=== PATIENT | male | born 1970 | race Caucasian/White ===

== ENCOUNTER → 2020-01-06 13:15 | Outpatient (BNVA) | payer SELFPAY | PROVIDERS: Visit Provider Physician Assistant ==

== ENCOUNTER → 2021-12-28 13:00 | Outpatient (BNVA) | payer SELFPAY | PROVIDERS: Visit Provider Internal Medicine | DX: Z02.79 Encounter for issue of other medical certificate (principal) ==

== ENCOUNTER 2023-04-26 10:03 | Emergency (ER) | payer MEDICAID, SELFPAY ==
--- NOTE | ~2023-04-26 | US_ITS ---
EXAMINATION: US VENOUS ULTRASOUND WITH DOPPLER LOWER EXTREMITY, BILATERAL CLINICAL INFORMATION: pain COMPARISON: None available. TECHNIQUE: Ultrasound of the deep veins is performed from the hip to the calf with compression sonography and color and pulse Doppler assessment. Spectral analysis with color-flow imaging is performed. FINDINGS: RIGHT: There is normal venous compression and respiratory variation and augmented flow. The visualized common femoral vein, superficial femoral vein, profunda femoral vein, popliteal vein, and the trifurcation region shows no evidence of deep venous thrombosis. There is no significant popliteal fossa cyst. LEFT: There is normal venous compression and respiratory variation and augmented flow. The visualized common femoral vein, superficial femoral vein, profunda femoral vein, popliteal vein, and the trifurcation region shows no evidence of deep venous thrombosis. There is no significant popliteal fossa cyst. US/US venous duplex LE BI IMPRESSION: No DVT demonstrated in the bilateral lower extremity.
--- NOTE | ~2023-04-26 | XR_ITS ---
EXAMINATION: XR CHEST CLINICAL INFORMATION: 52-year-old male with palpitations COMPARISON: None available. TECHNIQUE: 2 views of the chest were obtained. FINDINGS: No significant abnormality is noted involving the heart, lungs, mediastinum, bony thorax or soft tissues. XR/XR chest 2V IMPRESSION: Unremarkable examination.
[2023-04-26 10:08] VITALS: BP 134/94; PULSE 100; RESP 19; TEMP 36.6; O2SAT 99; BMI 27.9
--- NOTE | 2023-04-26 10:11 | ECG_ITS ---
Test Reason : palpitations Blood Pressure : / mmHG Vent. Rate : 087 BPM Atrial Rate : 087 BPM P-R Int : 148 ms QRS Dur : 094 ms QT Int : 384 ms P-R-T Axes : 060 028 058 degrees QTc Int : 462 ms Normal sinus rhythm Normal ECG No previous ECGs available Referred By: Generic ED Physician Electronically Signed By:Jonel Maxwell
[2023-04-26 10:41] LABS: MANUAL DIFF FLAG NO
[2023-04-26 10:43] LABS: Basophils Percent Auto 0.4 % (0-2); Eosinophils Percent Auto 0.2 % (0-4); Hematocrit 42.8 % (42.0-52.0); Hemoglobin 14.7 g/dl (14.0-18.0); Imm Gran Abs Auto 0.01 X10*3/uL (0.00-0.03); Imm Gran Pct Auto 0.2 % (0.0-0.4); Lymphocytes Absolute Auto 0.9 X10*3/uL (1.2-4.9); Lymphocytes Percent Auto 16.8 % (20-40); Mean Corpuscular HGB Conc 34.3 g/dl (31.0-36.0); Mean Corpuscular Hemoglobin 31.5 pg (27.0-33.0); Mean Corpuscular Volume 91.8 fL (80.0-98.0); Monocytes Absolute Auto 0.4 X10*3/uL (0.1-1.2); Monocytes Percent Auto 7.9 % (2-11); Neutrophils Absolute Auto 4.1 x10*3/uL (2.0-8.3); Neutrophils Percent Auto 74.5 % (45-73); Platelet Count 318 X10*3/uL (160-400); Red Blood Count 4.66 X10*6/uL (4.60-5.80); Red Cell Distribution Width 12.8 % (11.0-16.0); White Blood Count 5.4 X10*3/uL (4.8-10.8)
[2023-04-26 10:56] LABS: Prothrombin Time 11.7 SEC (11.1-13.3)
[2023-04-26 10:57] LABS: Alanine Aminotransferase 34 U/L (0-40); Albumin Level 4.3 g/dL (3.5-5.0); Alkaline Phosphatase 74 U/L (39-117); Anion Gap 12 (12-20); Aspartate Amino Transferase 28 U/L (5-37); Bilirubin Direct 0.2 mg/dL (0.0-0.5); Bilirubin Total 0.4 mg/dL (0.0-1.0); Blood Urea Nitrogen 13 mg/dL (9-16); COVID-19 Test Negative (Negative); Calcium 9.4 mg/dL (8.4-10.2); Carbon Dioxide 23 mmol/L (22-29); Chloride 109 mmol/L (96-108); Estimated Glomerular Filt Rate > 60; Glucose Random 113 mg/dL (60-115); IDNOW Serial# 152EDE1D; Lipase 11 U/L (8-78); Potassium 4.1 mmol/L (3.3-5.1); Sodium 140 mmol/L (135-145); Total Protein 7.3 g/dL (6.5-8.0)
[2023-04-26 11:03] LABS: B Type Natriuretic Peptide 12 pg/mL (<100)
[2023-04-26 11:04] LABS: Troponin-I High Sensitivity < 2.7 ng/L (<3.5-35.0)
--- NOTE | 2023-04-26 13:30 | ED_ITS ---
HPI - General Adult General Chief complaint: General Medical Stated complaint: Irregular Heartbeat Pain X 1 Wk Time Seen by Provider: 04/26/23 13:29 Source: patient Mode of arrival: ambulatory Limitations: no limitations History of Present Illness HPI narrative: 52-year-old male with a history of atrial fibrillation who presents emergency department for evaluation of left-sided chest pain, palpitations which he describes as skipped beats and lower extremity swelling. States he has been having these sensations for a long period of diagnosed with atrial fibrillation in 2021. He states that over the last several days he has had frequent skipped beats and he feels like he has having a thumping sensation in his chest when he skips a beat. He also is complaining of swelling of his lower extremities with pain in his left groin area. He states that he has been diagnosed with atrial fibrillation twice and was cardioverted once in the past. He states he does have an appointment with his three knife trimmer in the next 1-2 weeks. He denied Fever, chills, cough, nausea, vomiting or diarrhea. Related Data Allergies Allergy/AdvReac Type Severity Reaction Status Date / Time No Known Allergies Allergy Verified 04/26/23 10:07 Review of Systems 2 Review of Systems: Yes all other systems are reviewed and are negative [facility] Past Medical History [facility] Narrative: Social history: Denies tobacco, alcohol and drug use. Social History Social History Smoked in Last 30 Days: No Use of substances other than those prescribed or required for medical reasons: No Advance Directives: No Advance Directives Information Provided: No Physical Exam ED Vital Signs: Vital Signs - 24 hr 04/26/23 10:08 04/26/23 14:56 04/26/23 18:08 Temperature 98 F 98.1 F Pulse Rate 100 75 65 Respiratory Rate 19 16 14 Blood Pressure 134/94 H 122/87 117/80 Pulse Oximetry 99 98 99 Oxygen Delivery Method Room Air Room Air BMI result Body Mass Index 27.9 Vital signs were normal Exam General: Awake, alert in no distress Head: Normocephalic, atraumatic EENT: PERRL, Lids normal, sclera normal, conjunctiva normal, nose normal , ears normal, throat without erythema or exudates Neck: Supple, no adenopathy Lung: breath sounds symmetric, no wheezing, rales or rhonchi Chest: symmetric movement, nontender Heart: regular rate and rhythm, normal S1, S2 no murmurs or rubs Abdomen: soft, non-tender, nondistended, normal bowel sounds Back: no vertebral tenderness, no CVAT Extremities: no deformities, moves all extremities symmetrically, trace to 1 bilaterally symmetric Skin: no rashes, no lesion, normal color and warmth Neuro: Awake, alert, oriented, normal speech, cranial nerves intact, moves all extremities symmetrically Psych: Pleasant, cooperative Medications Administered Discontinued Medications Generic Name Dose Route Start Last Admin Trade Name Freq PRN Reason Stop Dose Admin Lorazepam 2 mg 04/26/23 17:10 04/26/23 18:07 Lorazepam 1 Mg Tablet PO 04/26/23 17:11 2 mg ONCE STA Administration Medical Decision Making Medical Decision Making [facility] Narrative: 52-year-old male with a history of atrial fibrillation who presents emergency department for evaluation of left-sided chest pain, palpitations which he describes as skipped beats and lower extremity swelling times years with symptoms worse over the past week. Vital signs were normal. Physical exam did reveal bilateral lower extremity pitting edema, otherwise was unremarkable. Differential diagnosis: Includes was not limited to palpitations, anxiety, atrial fibrillation, arrhythmias, DVT 19:00 My interpretation patient's laboratory evaluation is as follows: CBC was normal. CMP was normal. COVID-19 was negative. Troponin was below detectable limits. INR was normal Twelve EKG revealed no significant abnormalities Chest x-ray was normal. Duplex ultrasound of lower extremities revealed no DVT awake overnight monitor did not reveal any arrhythmias despite the patient complaining of palpitations I did discuss these findings with the patient, he was advised to follow-up with his three knife trimmer for further evaluation of his palpitations and to rule out the possibility of paroxysmal atrial fibrillation. Admission/Observation Consideration of admission/observation: Escalation of care including admission/observation considered Lab Data [facility] Lab Attestation statement: I reviewed the patient's lab results. 04/26/23 10:36 04/26/23 10:36 Labs: Lab Results 04/26/23 Range/Units 10:36 WBC 5.4 (4.8-10.8) X10*3/uL RBC 4.66 (4.60-5.80) X10*6/uL Hgb 14.7 (14.0-18.0) g/dl Hct 42.8 (42.0-52.0) % MCV 91.8 (80.0-98.0) fL MCH 31.5 (27.0-33.0) pg MCHC 34.3 (31.0-36.0) g/dl RDW 12.8 (11.0-16.0) % Plt Count 318 (160-400) X10*3/uL MPV 9.0 L (9.4-12.4) fL Immature Gran % (Auto) 0.2 (0.0-0.4) % Neut % (Auto) 74.5 H (45-73) % Lymph % (Auto) 16.8 L (20-40) % [place] % (Auto) 7.9 (2-11) % Eos % (Auto) 0.2 (0-4) % Baso % (Auto) 0.4 (0-2) % Lymph # (Auto) 0.9 L (1.2-4.9) X10*3/uL [place] # (Auto) 0.4 (0.1-1.2) X10*3/uL Eos # (Auto) 0.0 (0.0-0.4) X10*3/uL Baso # (Auto) 0.0 (0.0-0.2) X10*3/uL Abs Immat Gran (auto) 0.01 (0.00-0.03) X10*3/uL Absolute Neuts (auto) 4.1 (2.0-8.3) x10*3/uL Absolute Nucleated RBC 0.000 (0.0-0.012) X10*3/uL Nucleated RBC % (auto) 0.0 (0.0-0.2) /100WBC PT 11.7 (11.1-13.3) SEC INR 1.0 (0.9-1.1) Sodium 140 (135-145) mmol/L Potassium 4.1 (3.3-5.1) mmol/L Chloride 109 H (96-108) mmol/L Carbon Dioxide 23 (22-29) mmol/L Anion Gap 12 (12-20) BUN 13 (9-16) mg/dL Creatinine 1.07 (0.5-1.4) mg/dL Estim Creat Clear Calc 93.0 Estimated GFR > 60 Random Glucose 113 (60-115) mg/dL Calcium 9.4 (8.4-10.2) mg/dL Total Bilirubin 0.4 (0.0-1.0) mg/dL Direct Bilirubin 0.2 (0.0-0.5) mg/dL AST 28 (5-37) U/L ALT 34 (0-40) U/L Alkaline Phosphatase 74 (39-117) U/L Troponin I High Sens < 2.7 (<3.5-35.0) ng/L B-Natriuretic Peptide 12 (<100) pg/mL Total Protein 7.3 (6.5-8.0) g/dL Albumin 4.3 (3.5-5.0) g/dL Lipase 11 (8-78) U/L COVID-19 ([facility]) Negative (Negative) COVID-19 Clin Com See Note Independent Interpretation I performed an independent interpretation of an: EKG and Plain X-Ray Interpretation: My independent interpretation patient's 12 EKG done at 10:28 hours is as follows: Normal sinus rhythm with a rate of 87, normal CO interval, QRS duration QTC interval, no T-wave abnormalities, no ST segment elevation, no ST segment depression, no PACs, no PVCs-this is a normal EKG Radiology Impression Discussion of test interpretation with radiology: I have reviewed the radiologist's reading. Radiologist Impression: XR chest 2V IMPRESSION: Unremarkable examination. Dictated By: Ha Osborn MD US venous duplex LE BI IMPRESSION: No DVT demonstrated in the bilateral lower extremity. Dictated By: Alysia Collins MD Discharge Plan Discharge Clinical Impression: Heart palpitations, Edema, peripheral Patient Disposition: Home, Self-Care Instructions: Heart Palpitations (ED) Additional Instructions: Your blood work was unremarkable Your EKG was normal Your chest x-ray was normal The ultrasound of your lower extremities revealed no blood clots which is reassuring Your symptoms palpitations most likely premature ventricular contractions (PVCs) or premature atrial contraction (PACs). Make sure you keep your follow-up appointment with your three knife trimmer to complete your cardiac workup and to be further evaluated for possible atrial fibrillation Follow-up with your doctor in 2 days. Please return to the emergency department if your symptoms get worse or if you develop any symptoms that are concerning to you.
[2023-04-26 14:56] VITALS: BP 122/87; PULSE 75; RESP 16; TEMP 36.7; O2SAT 98
--- NOTE | 2023-04-26 17:30 | PC.NURSE ---
Pt enters my care- pt is c/o stomach and his heart fluttering- EKG ve- sinus cas on the monitor- attempted to reassure patient ++anxious- pt medicated with ativan awaiting disposition
[2023-04-26] MEDS: LORazepam 1 MG TABLET 2 MG PO (18:07)
[2023-04-26 18:08] VITALS: BP 117/80; PULSE 65; RESP 14; O2SAT 99
[2023-04-26 20:05] VITALS: BP 120/69; PULSE 71; RESP 16; TEMP 36.8; O2SAT 99
== END 2023-04-26 20:07 | disposition home or self-care (01) ==
PROVIDERS: Emergency Provider Emergency Medicine Emergency Medical Services; PCP Nurse Practitioner
DX: R07.9 Chest pain, unspecified (principal); R00.2 Palpitations; R60.0 Localized edema; Z11.52 Encounter for screening for COVID-19
CPT/HCPCS: 71046; 80048; 80076; 83690; 83880; 84484; 85025; 85610; 87635; 93005; 93970; 99284

== ENCOUNTER → 2023-04-26 10:11 | Outpatient (BNV) | payer MEDICAID, SELFPAY | PROVIDERS: Emergency Provider Emergency Medicine Emergency Medical Services; PCP Nurse Practitioner; Visit Provider Internal Medicine Cardiovascular Disease | DX: R00.2 Palpitations (principal) | CPT/HCPCS: 93010 ==

== ENCOUNTER 2023-04-27 15:21 | Emergency (ER) | payer MEDICAID, SELFPAY ==
--- NOTE | ~2023-04-27 | CT_ITS ---
EXAMINATION: CT ABDOMEN AND PELVIS WITH CONTRAST CLINICAL INFORMATION: Left periumbilical pain. COMPARISON: None available. TECHNIQUE: Multidetector volumetric images were obtained from the superior aspect of the liver through the pubic symphysis following administration 85 mL of Omnipaque 350 intravenous contrast. Sagittal and coronal reformatted images were obtained on the technologist's workstation. Oral contrast: No This CT examination was performed using dose optimization techniques as appropriate, variously including the following: *Automated exposure control *Adjustment of mA and/or kV according to patient size (this includes techniques or standardized protocols for targeted exams where dose is matched to indication/reason for exam; i.e. extremities or head) *Use of iterative reconstruction technique DLP: 632 mGy-cm FINDINGS: LUNG BASES: There is platelike atelectasis right lung base. The heart size is normal. LIVER, GALLBLADDER, AND BILIARY TREE: The liver is normal in size, shape, and attenuation. No focal hepatic lesion or biliary ductal dilatation is present. The gallbladder is unremarkable with no evidence of radiopaque gallstones, gallbladder wall thickening, or obvious pericholecystic inflammatory changes. PANCREAS: The pancreatic head and proximal body of the pancreas hypodense. Rest of the pancreas is unremarkable. Peripancreatic fat borders maintained normal. No adjacent fluid seen. SPLEEN: The spleen is unremarkable and normal size. There is a 1.2 cm lesion underneath the left diaphragm anterior to the spleen question accessory splenule. ADRENAL GLANDS: Unremarkable. KIDNEYS AND URETERS: The left kidney is normal size, shape and position with normal cortical thickness. No radiopaque calculi are hydronephrosis seen. The right kidneys malrotated and inferiorly positioned with no radiopaque calculi or hydronephrosis. There is normal cortical thickness. No hydronephrosis seen. There is a likely duplex collecting system and ureters. BLADDER: Unremarkable. GASTROINTESTINAL TRACT: There is scattered stool and gas seen throughout the colon without significant distention. The small bowel loops are normal caliber. ABDOMINAL WALL: No significant hernia is appreciated. LYMPH NODES: Normal. VASCULAR: Unremarkable. PELVIC VISCERA: The prostate gland is mildly enlarged. OSSEOUS STRUCTURES: No aggressive lytic or sclerotic process seen. CT/CT abdomen pelvis w IV con IMPRESSION: 1. No acute intra-abdominal process seen. 2. Mild constipation. 3. 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 The left kidney is unremarkable. 4. Slightly hypodense appearing head of the pancreas without peripancreatic fluid collection or fat stranding. Correlate with serum lipase and amylase. Fleischner guidelines were followed.
--- NOTE | 2023-04-27 15:23 | ECG_ITS ---
Test Reason : chest pain Blood Pressure : / mmHG Vent. Rate : 071 BPM Atrial Rate : 071 BPM P-R Int : 142 ms QRS Dur : 096 ms QT Int : 402 ms P-R-T Axes : 038 004 034 degrees QTc Int : 436 ms Normal sinus rhythm Normal ECG When compared with ECG of 26-APR-2023 10:28, No significant change was found Referred By: Leigh Ramirez Electronically Signed By:Jonel Maxwell
--- NOTE | 2023-04-27 16:10 | ED_ITS ---
HPI - General Adult General Chief complaint: Chest Pain Stated complaint: chest pain Time Seen by Provider: 04/27/23 18:46 Source: patient Mode of arrival: ambulatory Limitations: no limitations History of Present Illness HPI narrative: Patient is a 52-year-old male who presents to the emergency department for evaluation of chest pain and abdominal pain. He reports at some point today he developed pain to the left of the umbilicus that radiates to the left flank, does not recall exactly what time. The pain has been constant all day, described as 10/10 without any precipitating injury. He denies any associated nausea, vomiting, constipation, diarrhea, dysuria, hematuria, urinary frequency. He reports a history of similar pain in the past which he attributes to an episode of atrial fibrillation. He reports that he was bending over to tie his shoe when he developed substernal chest pain described as severe tight like pressure which resolved after a few moments. Reports he was in the emergency department yesterday and was having chest pain as well but that pain was different, felt to the left upper chest with associated palpitations. Related Data Allergies Allergy/AdvReac Type Severity Reaction Status Date / Time No Known Allergies Allergy Verified 04/26/23 10:07 Review of Systems 2 Review of Systems: Yes all other systems are reviewed and are negative PMFSH Past Medical History Attestation statement: The following information was validated with the patient. Source: old records reviewed Social History Social History Advance Directives: No Advance Directives Information Provided: No Physical Exam ED Vital Signs: Vital Signs - 24 hr 04/27/23 16:11 04/27/23 19:31 Temperature 97.8 F 97.2 F Pulse Rate 74 69 Respiratory Rate 22 H 14 Blood Pressure 142/100 H 140/88 H Pulse Oximetry 98 97 Oxygen Delivery Method Room Air Room Air BMI result Body Mass Index 27.9 Appearance: Alert.?Oriented to person, place and time. No acute distress.?Normal affect. Eyes: Pupils equal, round and reactive to light.? ENT: Pharynx normal.?? Neck: Normal inspection.? Neck supple.?? CVS: Heart sounds normal. Normal heart rate and rhythm.? Pulses normal.?? Respiratory: No respiratory distress.? Lung sounds clear to auscultation bilaterally?? Abdomen: Semifirm, with left periumbilical tenderness upon palpation, no CVA tenderness. No rigidity. No guarding. Normoactive bowel sounds. No pulsatile mass.?? Skin: Skin warm and dry.? Normal skin color.? Extremities: No lower extremity edema.? No calf TTP Neuro: Moves all extremities spontaneously. Sensation intact bilaterally. No focal neuro deficits. Ambulates with normal steady gait. Course Course Course Narrative: This is a rapid medical exam: Additional HPI, ROS, PE not included below will be deferred to primary provider. Patient is a 52-year-old male with history of afib presenting to the emergency department with complaint of chest pain. Seen in this ED yesterday with similar symptoms. Reports episode of severe pain while bending forward to tie his shoe earlier today. States since that time he is having muscle spasms to his extremities. When patient points to pain, he is pointing to epigastric area. Plan: EKG, labs Reevaluation(s) Reevaluation #1: CT of the abdomen and pelvis reveals no acute intra-abdominal pathology, mild constipation, slightly hypodense appearing head of the pancreas, no fluid collection or fat stranding, serum lipase within normal limits, do not suspect acute pancreatitis. At this time feel he is stable for discharge home outpatient follow-up with PCP/cardiology. Discussed strict return precautions. All questions answered. Stable for discharge. Medications Administered Discontinued Medications Generic Name Dose Route Start Last Admin Trade Name Freq PRN Reason Stop Dose Admin Sodium Chloride 1,000 mls @ 999 mls/hr 04/27/23 20:45 04/27/23 23:03 Ns IV 04/27/23 21:45 Infused .Q1H1M FRANCES Infusion Iohexol 85 ml 04/27/23 20:53 04/27/23 20:53 Iohexol 350 Mg/Ml 100 Ml Infus..Btl IV 04/27/23 20:54 85 ml ONCE ONE Administration Medical Decision Making Medical Decision Making [facility] Narrative: Patient is a 52-year-old male with reported past medical history of atrial fibrillation presenting to emergency department for evaluation of chest and abdominal pain as per HPI. Chest pain has resolved at the time of my examination. Reviewed labs obtained prior to my assumption of care, bill leukocytosis or anemia, CMP is unremarkable. High sensitive troponin is below detectable limits. EKG reveals a normal sinus rhythm with ventricular rate of 72, QTC 440, no ST elevation no ST depression, no acute ischemic changes, doubt ACS. This coupled with unremarkable workup yesterday including a negative chest x-ray, at this time feel that he can follow-up outpatient with cardiology which he reports he has an appointment scheduled in [address] Schneider at [facility]. He does continue to have abdominal pain, he was offered pain medication he however declines he just wants to know the cause for this, has notable tenderness upon palpation to this area. Concern for possible renal colic, obstructive calculi, less likely pyelonephritis, colitis, exam is without evidence of hernia, appendicitis, diverticulitis. CT abdomen pelvis pending Differential Diagnosis Differential Diagnoses: The differential diagnosis associated with the presentation includes (As noted above) Admission/Observation Consideration of admission/observation: Escalation of care including admission/observation considered (As noted above, and see course narrative) Lab Data [facility] Lab Attestation statement: I reviewed the patient's lab results. (See narrative above) 04/27/23 16:41 04/27/23 16:41 Labs: Lab Results 04/27/23 Range/Units 16:41 WBC 5.9 (4.8-10.8) X10*3/uL RBC 4.53 L (4.60-5.80) X10*6/uL Hgb 14.2 (14.0-18.0) g/dl Hct 41.4 L (42.0-52.0) % MCV 91.4 (80.0-98.0) fL MCH 31.3 (27.0-33.0) pg MCHC 34.3 (31.0-36.0) g/dl RDW 12.6 (11.0-16.0) % Plt Count 282 (160-400) X10*3/uL MPV 8.9 L (9.4-12.4) fL Immature Gran % (Auto) 0.3 (0.0-0.4) % Neut % (Auto) 61.2 (45-73) % Lymph % (Auto) 28.8 (20-40) % [place] % (Auto) 8.4 (2-11) % Eos % (Auto) 1.0 (0-4) % Baso % (Auto) 0.3 (0-2) % Lymph # (Auto) 1.7 (1.2-4.9) X10*3/uL [place] # (Auto) 0.5 (0.1-1.2) X10*3/uL Eos # (Auto) 0.1 (0.0-0.4) X10*3/uL Baso # (Auto) 0.0 (0.0-0.2) X10*3/uL Abs Immat Gran (auto) 0.02 (0.00-0.03) X10*3/uL Absolute Neuts (auto) 3.6 (2.0-8.3) x10*3/uL Absolute Nucleated RBC 0.000 (0.0-0.012) X10*3/uL Nucleated RBC % (auto) 0.0 (0.0-0.2) /100WBC PT 11.7 (11.1-13.3) SEC INR 1.0 (0.9-1.1) Sodium 138 (135-145) mmol/L Potassium 4.0 (3.3-5.1) mmol/L Chloride 106 (96-108) mmol/L Carbon Dioxide 24 (22-29) mmol/L Anion Gap 12 (12-20) BUN 14 (9-16) mg/dL Creatinine 1.00 (0.5-1.4) mg/dL Estim Creat Clear Calc 99.5 Estimated GFR > 60 Random Glucose 83 (60-115) mg/dL Calcium 8.8 D (8.4-10.2) mg/dL Total Bilirubin 0.3 (0.0-1.0) mg/dL AST 25 (5-37) U/L ALT 32 (0-40) U/L Alkaline Phosphatase 71 (39-117) U/L Troponin I High Sens < 2.7 (<3.5-35.0) ng/L Total Protein 6.8 (6.5-8.0) g/dL Albumin 4.1 (3.5-5.0) g/dL Lipase 9 (8-78) U/L Independent Interpretation I performed an independent interpretation of an: CT Scan (No diverticulitis, no nephrolithiasis.) Radiology Impression Discussion of test interpretation with radiology: I have reviewed the radiologist's reading. Radiologist Impression: CT/CT abdomen pelvis w IV con IMPRESSION: 1. No acute intra-abdominal process seen. 2. Mild constipation. 3. 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 The left kidney is unremarkable. 4. Slightly hypodense appearing head of the pancreas without peripancreatic fluid collection or fat stranding. Correlate with serum lipase and amylase. External Record Review External record reviewed: Outpatient record Critical Care Time Critical Care Time Critical Care Time: Yes Total Critical Care Time: 35 Attestation: I personally attest to this critical care time spent taking care of the patient exclusive of all other billable procedures was approximately 35 minutes including initial evaluation of patient, ordering tests, x-ray interpretation, EKG interpretation, medical consultation, documentation, re-evaluation. Discharge Plan Discharge Clinical Impression: Chest pain, Abdominal pain Patient Disposition: Home, Self-Care Instructions: Chest Pain (ED), Abdominal Pain (ED) Additional Instructions: Your blood work today was overall normal. The CT scan of your abdomen does not show any cause for the pain that you are describing. As discussed, it is important that you follow-up with cardiology as scheduled on Monday as well as her primary care provider. You may return back to emergency department any new or worsening symptoms or concerns. You can take ibuprofen 200 mg, 3 tablets (600mg) every 6-8 hours as needed for pain, in addition to Tylenol 500 mg, 2 tablets (1,000mg) every 4-6 hours as needed for pain, but not to exceed 3 doses daily (3,000mg).? Referrals: Carolyn Khan MD [Primary Care Provider] - Interventions: ED Discharge Assessment Last Done: 04/27/23 23:03 Discharge Date/Time: 04/27/23 23:09
[2023-04-27 16:11] VITALS: BP 142/100; PULSE 74; RESP 22; TEMP 36.6; O2SAT 98; BMI 27.9
[2023-04-27 16:56] LABS: MANUAL DIFF FLAG NO
--- NOTE | 2023-04-27 16:57 | MHC.EDTECH ---
Patient ekg taken and was read by Provider ,blood drawn and sent to lab .
[2023-04-27 16:58] LABS: Basophils Percent Auto 0.3 % (0-2); Eosinophils Absolute Auto 0.1 X10*3/uL (0.0-0.4); Hematocrit 41.4 % (42.0-52.0); Hemoglobin 14.2 g/dl (14.0-18.0); Imm Gran Abs Auto 0.02 X10*3/uL (0.00-0.03); Imm Gran Pct Auto 0.3 % (0.0-0.4); Lymphocytes Absolute Auto 1.7 X10*3/uL (1.2-4.9); Lymphocytes Percent Auto 28.8 % (20-40); Mean Corpuscular HGB Conc 34.3 g/dl (31.0-36.0); Mean Corpuscular Hemoglobin 31.3 pg (27.0-33.0); Mean Corpuscular Volume 91.4 fL (80.0-98.0); Mean Platelet Volume 8.9 fL (9.4-12.4); Monocytes Absolute Auto 0.5 X10*3/uL (0.1-1.2); Monocytes Percent Auto 8.4 % (2-11); Neutrophils Absolute Auto 3.6 x10*3/uL (2.0-8.3); Neutrophils Percent Auto 61.2 % (45-73); Platelet Count 282 X10*3/uL (160-400); Red Blood Count 4.53 X10*6/uL (4.60-5.80); Red Cell Distribution Width 12.6 % (11.0-16.0); White Blood Count 5.9 X10*3/uL (4.8-10.8)
[2023-04-27 17:03] LABS: Prothrombin Time 11.7 SEC (11.1-13.3)
[2023-04-27 17:11] LABS: Alanine Aminotransferase 32 U/L (0-40); Albumin Level 4.1 g/dL (3.5-5.0); Alkaline Phosphatase 71 U/L (39-117); Anion Gap 12 (12-20); Aspartate Amino Transferase 25 U/L (5-37); Bilirubin Total 0.3 mg/dL (0.0-1.0); Blood Urea Nitrogen 14 mg/dL (9-16); Calcium 8.8 mg/dL (8.4-10.2); Carbon Dioxide 24 mmol/L (22-29); Chloride 106 mmol/L (96-108); Creatinine Clr Calc Pharmacy 99.5; Estimated Glomerular Filt Rate > 60; Glucose Random 83 mg/dL (60-115); Sodium 138 mmol/L (135-145); Total Protein 6.8 g/dL (6.5-8.0)
[2023-04-27 17:19] LABS: Troponin-I High Sensitivity < 2.7 ng/L (<3.5-35.0)
[2023-04-27 19:31] VITALS: BP 140/88; PULSE 69; RESP 14; TEMP 36.2; O2SAT 97
[2023-04-27] MEDS: iohexoL 350 MG/ML 100 ML INFUS..BTL 85 ML IV (20:53)
[2023-04-27] MEDS: 0.9 % Sodium Chloride 1,000 ML 999 ML IV (21:58)
[2023-04-27 22:18] LABS: Lipase 9 U/L (8-78)
== END 2023-04-27 23:09 | disposition home or self-care (01) ==
PROVIDERS: Nurse Practitioner Family; Registered Nurse Emergency; Emergency Provider Internal Medicine; PCP Family Medicine
DX: R07.9 Chest pain, unspecified (principal); R10.9 Unspecified abdominal pain
CPT/HCPCS: 36415; 74177; 80053; 83690; 84484; 85025; 85610; 93005; 96360; 99284; Q9967

== ENCOUNTER → 2023-04-27 15:23 | Outpatient (BNV) | payer MEDICAID, SELFPAY | PROVIDERS: Emergency Provider Internal Medicine; PCP Family Medicine; Visit Provider Internal Medicine Cardiovascular Disease | DX: R07.9 Chest pain, unspecified (principal) | CPT/HCPCS: 93010 ==

== ENCOUNTER 2023-04-30 11:28 | Emergency (ER) | payer MEDICAID, SELFPAY ==
--- NOTE | ~2023-04-30 | XR_ITS ---
EXAMINATION: XR CHEST CLINICAL INFORMATION: Chest pain COMPARISON: None available. TECHNIQUE: 2 views of the chest were obtained. FINDINGS: No significant abnormality is noted involving the heart, lungs, mediastinum, bony thorax or soft tissues. XR/XR chest 2V IMPRESSION: Unremarkable examination.
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
[2023-04-30 11:37] VITALS: BP 149/111; PULSE 94; RESP 16; TEMP 36.8; O2SAT 98; BMI 29.3
--- NOTE | 2023-04-30 11:54 | ECG_ITS ---
Test Reason : CHEST PAIN Blood Pressure : / mmHG Vent. Rate : 080 BPM Atrial Rate : 080 BPM P-R Int : 142 ms QRS Dur : 098 ms QT Int : 388 ms P-R-T Axes : 054 013 057 degrees QTc Int : 447 ms Normal sinus rhythm Normal ECG When compared with ECG of 27-APR-2023 15:43, No significant change was found Referred By: Nayely Alan Electronically Signed By:CARA STEELE MD
[2023-04-30 11:55] LABS: MANUAL DIFF FLAG NO
[2023-04-30 11:58] LABS: Basophils Percent Auto 0.5 % (0-2); Eosinophils Percent Auto 0.7 % (0-4); Hematocrit 45.4 % (42.0-52.0); Hemoglobin 15.6 g/dl (14.0-18.0); Imm Gran Abs Auto 0.01 X10*3/uL (0.00-0.03); Imm Gran Pct Auto 0.2 % (0.0-0.4); Lymphocytes Absolute Auto 1.1 X10*3/uL (1.2-4.9); Lymphocytes Percent Auto 17.1 % (20-40); Mean Corpuscular HGB Conc 34.4 g/dl (31.0-36.0); Mean Corpuscular Hemoglobin 31.5 pg (27.0-33.0); Mean Corpuscular Volume 91.7 fL (80.0-98.0); Mean Platelet Volume 8.9 fL (9.4-12.4); Monocytes Absolute Auto 0.3 X10*3/uL (0.1-1.2); Monocytes Percent Auto 5.5 % (2-11); Neutrophils Absolute Auto 4.7 x10*3/uL (2.0-8.3); Platelet Count 348 X10*3/uL (160-400); Red Blood Count 4.95 X10*6/uL (4.60-5.80); Red Cell Distribution Width 12.6 % (11.0-16.0); White Blood Count 6.2 X10*3/uL (4.8-10.8)
[2023-04-30 12:01] LABS: INTERNATIONAL NORM RATIO 0.9 (0.9-1.1)
[2023-04-30 12:03] LABS: D Dimer High Sensitivity 201 NG/ML
[2023-04-30 12:09] LABS: Alanine Aminotransferase 22 U/L (0-40); Albumin Level 4.2 g/dL (3.5-5.0); Alkaline Phosphatase 79 U/L (39-117); Anion Gap 11 (12-20); Aspartate Amino Transferase 19 U/L (5-37); Bilirubin Total 0.4 mg/dL (0.0-1.0); Blood Urea Nitrogen 13 mg/dL (9-16); Calcium 9.2 mg/dL (8.4-10.2); Carbon Dioxide 26 mmol/L (22-29); Chloride 106 mmol/L (96-108); Creatinine Clr Calc Pharmacy 87.4; Estimated Glomerular Filt Rate > 60; Glucose Random 102 mg/dL (60-115); Lipase 10 U/L (8-78); Magnesium 1.9 mg/dL (1.6-2.6); Potassium 4.3 mmol/L (3.3-5.1); Sodium 139 mmol/L (135-145); Total Protein 7.2 g/dL (6.5-8.0)
[2023-04-30 12:18] LABS: Troponin-I High Sensitivity < 2.7 ng/L (<3.5-35.0)
[2023-04-30 16:39] VITALS: BP 159/74; PULSE 85; RESP 14; TEMP 37.3; O2SAT 100
[2023-04-30 16:55] VITALS: BP 131/87; PULSE 66; RESP 19; TEMP 36.7; O2SAT 97
--- NOTE | 2023-04-30 17:09 | ED.GENADULT ---
HPI - General Adult General Chief complaint: General Medical Stated complaint: Chest & abd pain, disoriented Time Seen by Provider: 04/30/23 17:00 Source: patient Mode of arrival: ambulatory Limitations: no limitations History of Present Illness HPI narrative: 52 yo male with history of afib Seen 04/27 for abdominal pain/chest pain with negative CT imaging 04/26 for palpitations/chest pain with negative labs, EKG, CXR Related Data Allergies Allergy/AdvReac Type Severity Reaction Status Date / Time No Known Allergies Allergy Verified 04/30/23 11:36 [facility] Social History Social History Advance Directives: No Advance Directives Information Provided: No Physical Exam ED Vital Signs: Vital Signs - 24 hr 04/30/23 11:37 04/30/23 16:39 04/30/23 16:55 Temperature 98.3 F 99.1 F 98.1 F Pulse Rate 94 85 66 Respiratory Rate 16 14 19 Blood Pressure 149/111 H 159/74 H 131/87 Pulse Oximetry 98 100 97 Oxygen Delivery Method Room Air Room Air Room Air BMI result Body Mass Index 29.3 Medical Decision Making Lab Data 04/30/23 11:51 04/30/23 11:50 Labs: Lab Results 04/30/23 04/30/23 Range/Units 11:50 11:51 WBC 6.2 (4.8-10.8) X10*3/uL RBC 4.95 (4.60-5.80) X10*6/uL Hgb 15.6 (14.0-18.0) g/dl Hct 45.4 (42.0-52.0) % MCV 91.7 (80.0-98.0) fL MCH 31.5 (27.0-33.0) pg MCHC 34.4 (31.0-36.0) g/dl RDW 12.6 (11.0-16.0) % Plt Count 348 (160-400) X10*3/uL MPV 8.9 L (9.4-12.4) fL Immature Gran % (Auto) 0.2 (0.0-0.4) % Neut % (Auto) 76.0 H (45-73) % Lymph % (Auto) 17.1 L (20-40) % [place] % (Auto) 5.5 (2-11) % Eos % (Auto) 0.7 (0-4) % Baso % (Auto) 0.5 (0-2) % Lymph # (Auto) 1.1 L (1.2-4.9) X10*3/uL [place] # (Auto) 0.3 (0.1-1.2) X10*3/uL Eos # (Auto) 0.0 (0.0-0.4) X10*3/uL Baso # (Auto) 0.0 (0.0-0.2) X10*3/uL Abs Immat Gran (auto) 0.01 (0.00-0.03) X10*3/uL Absolute Neuts (auto) 4.7 (2.0-8.3) x10*3/uL Absolute Nucleated RBC 0.000 (0.0-0.012) X10*3/uL Nucleated RBC % (auto) 0.0 (0.0-0.2) /100WBC PT 11.0 L (11.1-13.3) SEC INR 0.9 (0.9-1.1) D-Dimer High Sensitivty 201 NG/ML Sodium 139 (135-145) mmol/L Potassium 4.3 (3.3-5.1) mmol/L Chloride 106 (96-108) mmol/L Carbon Dioxide 26 (22-29) mmol/L Anion Gap 11 L (12-20) BUN 13 (9-16) mg/dL Creatinine 1.13 (0.5-1.4) mg/dL Estim Creat Clear Calc 87.4 Estimated GFR > 60 Random Glucose 102 (60-115) mg/dL Calcium 9.2 (8.4-10.2) mg/dL Magnesium 1.9 (1.6-2.6) mg/dL Total Bilirubin 0.4 (0.0-1.0) mg/dL AST 19 (5-37) U/L ALT 22 (0-40) U/L Alkaline Phosphatase 79 (39-117) U/L Troponin I High Sens < 2.7 (<3.5-35.0) ng/L Total Protein 7.2 (6.5-8.0) g/dL Albumin 4.2 (3.5-5.0) g/dL Lipase 10 (8-78) U/L
[2023-04-30 17:13] LABS: Troponin-I High Sensitivity < 2.7 ng/L (<3.5-35.0)
== END 2023-04-30 17:52 | disposition home or self-care (01) ==
PROVIDERS: Physician Assistant Medical; Emergency Provider Student in an Organized Health Care Education/Training Program; PCP Family Medicine
DX: R07.89 Other chest pain (principal); R10.9 Unspecified abdominal pain; M79.605 Pain in left leg; M79.602 Pain in left arm; Z79.899 Other long term (current) drug therapy
CPT/HCPCS: 36415; 71046; 80053; 83690; 83735; 84484; 85025; 85379; 85610; 93005; 99283

== ENCOUNTER → 2023-04-30 11:54 | Outpatient (BNV) | payer MEDICAID, SELFPAY | PROVIDERS: Emergency Provider Student in an Organized Health Care Education/Training Program; PCP Family Medicine; Visit Provider Internal Medicine Cardiovascular Disease | DX: R07.9 Chest pain, unspecified (principal) | CPT/HCPCS: 93010 ==

== ENCOUNTER 2023-05-17 16:18 | Emergency (ER) | payer MEDICAID, SELFPAY ==
--- NOTE | ~2023-05-17 | CT_ITS ---
EXAMINATION: CT ABDOMEN AND PELVIS WITHOUT CONTRAST CLINICAL INFORMATION: Left flank pain radiating to groin COMPARISON: Previous CT of the abdomen and pelvis 04/27/2023 TECHNIQUE: Multidetector volumetric imaging was performed from the superior aspect of the liver through the pubic symphysis. Sagittal and coronal reformatted images were obtained on the technologist's workstation. This CT examination was performed using dose optimization techniques as appropriate, variously including the following: *Automated exposure control *Adjustment of mA and/or kV according to patient size (this includes techniques or standardized protocols for targeted exams where dose is matched to indication/reason for exam; i.e. extremities or head) *Use of iterative reconstruction technique DLP: 592 mGy-cm FINDINGS: LUNG BASES: Subsegmental atelectasis at the lung bases. LIVER, GALLBLADDER, AND BILIARY TREE: The liver is normal in size, shape, and attenuation. No focal hepatic lesion or biliary ductal dilatation is present. The gallbladder is unremarkable with no evidence of radiopaque gallstones, gallbladder wall thickening, or obvious pericholecystic inflammatory changes. PANCREAS: Unremarkable. SPLEEN: Unremarkable. Probable small splenule under the left hemidiaphragm. ADRENAL GLANDS: Unremarkable. KIDNEYS AND URETERS: The left kidney is normal appearing. No renal stone or hydronephrosis. No ureteral dilatation or ureteral stone. Ectopic right kidney located in the right lower quadrant with anterior orientation of the renal pelvis. The right kidney is otherwise unremarkable. BLADDER: Unremarkable. GASTROINTESTINAL TRACT: The small and large bowel are unremarkable. The appendix is unremarkable. ABDOMINAL WALL: No significant hernia is appreciated. LYMPH NODES: Normal. VASCULAR: Unremarkable. PELVIC VISCERA: Unremarkable. OSSEOUS STRUCTURES: Unremarkable. 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 Otherwise unremarkable exam. Fleischner guidelines were followed.
--- NOTE | ~2023-05-17 | US_ITS ---
EXAMINATION: US VENOUS ULTRASOUND WITH DOPPLER LOWER EXTREMITY, LEFT CLINICAL INFORMATION: Left lower extremity pain. COMPARISON: Ultrasound bilateral lower extremity 04/26/2023. TECHNIQUE: Ultrasound of the deep veins is performed from the hip to the calf with compression sonography and color and pulse Doppler assessment. Spectral analysis with color-flow imaging is performed. FINDINGS: There is normal venous compression and respiratory variation and augmented flow. The visualized left common femoral vein, superficial femoral vein, profunda femoral vein, popliteal vein, and the trifurcation region shows no evidence of deep venous thrombosis. There is no significant popliteal fossa cyst. If the patient's symptoms persist, followup ultrasound in 5 days 7 days might be of value to exclude proximal propagation from a non-visualized calf vein. US/US venous duplex LE IMPRESSION: No DVT demonstrated in the left lower extremity.
[2023-05-17 16:25] VITALS: BP 110/75; PULSE 97; RESP 20; TEMP 37; O2SAT 98; BMI 27.2
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
--- NOTE | 2023-05-17 16:29 | ECG_ITS ---
Test Reason : back pain Blood Pressure : / mmHG Vent. Rate : 073 BPM Atrial Rate : 073 BPM P-R Int : 142 ms QRS Dur : 100 ms QT Int : 394 ms P-R-T Axes : 063 024 063 degrees QTc Int : 434 ms Normal sinus rhythm Normal ECG When compared with ECG of 30-APR-2023 12:01, No significant change was found Referred By: Sierra Flores Electronically Signed By:Jonel Maxwell
[2023-05-17 16:43] LABS: MANUAL DIFF FLAG NO
[2023-05-17 16:47] LABS: Basophils Percent Auto 0.5 % (0-2); Eosinophils Absolute Auto 0.1 X10*3/uL (0.0-0.4); Eosinophils Percent Auto 0.8 % (0-4); Hematocrit 43.9 % (42.0-52.0); Imm Gran Abs Auto 0.01 X10*3/uL (0.00-0.03); Imm Gran Pct Auto 0.2 % (0.0-0.4); Lymphocytes Absolute Auto 1.4 X10*3/uL (1.2-4.9); Lymphocytes Percent Auto 21.2 % (20-40); Mean Corpuscular HGB Conc 34.2 g/dl (31.0-36.0); Mean Corpuscular Hemoglobin 31.1 pg (27.0-33.0); Mean Corpuscular Volume 90.9 fL (80.0-98.0); Mean Platelet Volume 8.9 fL (9.4-12.4); Monocytes Absolute Auto 0.5 X10*3/uL (0.1-1.2); Monocytes Percent Auto 7.1 % (2-11); Neutrophils Absolute Auto 4.6 x10*3/uL (2.0-8.3); Neutrophils Percent Auto 70.2 % (45-73); Platelet Count 325 X10*3/uL (160-400); Red Blood Count 4.83 X10*6/uL (4.60-5.80); Red Cell Distribution Width 12.1 % (11.0-16.0); White Blood Count 6.5 X10*3/uL (4.8-10.8)
[2023-05-17 17:01] LABS: Alanine Aminotransferase 22 U/L (0-40); Albumin Level 4.1 g/dL (3.5-5.0); Alkaline Phosphatase 69 U/L (39-117); Anion Gap 10 (12-20); Aspartate Amino Transferase 20 U/L (5-37); Bilirubin Total 0.4 mg/dL (0.0-1.0); Blood Urea Nitrogen 17 mg/dL (9-16); Calcium 9.2 mg/dL (8.4-10.2); Carbon Dioxide 28 mmol/L (22-29); Chloride 106 mmol/L (96-108); Estimated Glomerular Filt Rate > 60; Glucose Random 74 mg/dL (60-115); Potassium 4.3 mmol/L (3.3-5.1); Sodium 140 mmol/L (135-145)
[2023-05-17 17:07] LABS: Troponin-I High Sensitivity < 2.7 ng/L (<3.5-35.0)
[2023-05-17 19:30] VITALS: BP 132/96; PULSE 72; RESP 20; TEMP 36.7; O2SAT 96
[2023-05-17 19:58] LABS: Appearance Urine Clear; Color Urine Yellow; Glucose Urine UA Negative (Negative); Leukocyte Esterase Urine Negative (Negative); Nitrite Urine Negative (Negative); PH 6.5 (5.0-9.0); Urine Blood Negative (Negative); Urine Ketones Negative (Negative); Urine Protein Negative (Neg-Trace)
[2023-05-17 20:00] LABS: Bacteria Urine None Seen (None Seen); Hyaline Casts Urine 0-2 /LPF (0-2); RBC Urine 0-2 /HPF (0-2); Squamous Epithelial Cell Urine 0-2 /HPF (0-2); WBC Urine 0-5 /HPF (0-5)
[2023-05-17 20:07] LABS: D Dimer High Sensitivity < 150 NG/ML
[2023-05-17 20:16] LABS: Troponin-I High Sensitivity < 2.7 ng/L (<3.5-35.0)
[2023-05-17] MEDS: oxyCODONE HCl Immed Release 5 MG TABLET PO (21:08)
[2023-05-17] MEDS: dexAMETHasone 4 MG TABLET PO (21:09)
== END 2023-05-17 21:11 | disposition home or self-care (01) ==
PROVIDERS: Nurse Practitioner Family; Physician Assistant; Emergency Provider Internal Medicine
DX: M54.50 Low back pain, unspecified (principal); M79.605 Pain in left leg; I48.0 Paroxysmal atrial fibrillation; Z79.01 Long term (current) use of anticoagulants; Z79.899 Other long term (current) drug therapy
CPT/HCPCS: 36415; 74176; 80053; 81001; 83735; 84484; 85025; 85379; 93005; 93971; 99284; J8540

== ENCOUNTER → 2023-05-17 16:29 | Outpatient (BNV) | payer MEDICAID, SELFPAY | PROVIDERS: Emergency Provider Internal Medicine; Visit Provider Internal Medicine Cardiovascular Disease | DX: R07.9 Chest pain, unspecified (principal) | CPT/HCPCS: 93010 ==

== ENCOUNTER 2023-05-20 13:19 | Emergency (ER) | payer MEDICAID, SELFPAY ==
--- NOTE | ~2023-05-20 | XR_ITS ---
EXAMINATION: XR CHEST, 2 VIEWS CLINICAL INFORMATION: Chest pain. COMPARISON: 04/30/2023 TECHNIQUE: PA and lateral views of the chest were obtained. FINDINGS: No consolidation, pneumothorax, or pleural effusion. Cardiac and mediastinal contours are normal. Pulmonary vasculature is unremarkable. Trachea is midline. Osseous structures are unremarkable. XR/XR chest 2V IMPRESSION: No acute cardiopulmonary findings.
--- NOTE | 2023-05-20 13:20 | ECG_ITS ---
Test Reason : CP Blood Pressure : / mmHG Vent. Rate : 070 BPM Atrial Rate : 070 BPM P-R Int : 156 ms QRS Dur : 098 ms QT Int : 388 ms P-R-T Axes : 053 015 043 degrees QTc Int : 419 ms Normal sinus rhythm Normal ECG When compared with ECG of 17-MAY-2023 16:43, No significant change was found Referred By: Leigh Ramirez Electronically Signed By:CARA STEELE MD
[2023-05-20 13:34] LABS: MANUAL DIFF FLAG NO
[2023-05-20 13:37] VITALS: BP 137/94; PULSE 71; RESP 18; TEMP 36.1; O2SAT 97; BMI 27.2
--- NOTE | 2023-05-20 13:37 | ED_ITS ---
HPI - General Adult General Chief complaint: Chest Pain Stated complaint: Chest Pain Time Seen by Provider: 05/20/23 16:05 Source: patient Mode of arrival: ambulatory Limitations: no limitations History of Present Illness HPI narrative: Patient is a 52 year old male with a history of HTN, presenting to the ED complaining of a one year history of chest pain. Patient endorses an aching pain that radiates to the left side of his body from his neck down to his distal lower extremity. Patient also endorses SOB, fevers, night sweats, lightheadedness, dizziness, and a tingling hot sensation radiating down his left leg. Patient also reports developing a new rash on his inner thighs and on his scrotum. Denies fatigue, acute changes to mentation, changes to vision, nasal discharge/congestion, sore throat, chest palpitations, changes to bowel/urinary habits. No sick contacts, recent travel or antibiotic use. MD complaint: Chest pain Onset (ago): year(s) (1) Location: chest Radiation: neck, extremity (Left sided radiation from neck to ankle), proximal and distal Severity: mild Severity scale (1-10): 3 Quality: burning, aching and other (Tingling) Pain Consistency: constant Relieving factors: none Exacerbating factors: movement Associated symptoms: chest pain, diaphoresis, fever/chills, shortness of breath and weakness Treatments prior to arrival: none Related Data Previous Rx's Medication Instructions Recorded dexamethasone 4 mg tablet 4 mg PO BID #6 tabs 05/17/23 oxycodone 5 mg tablet 5 mg PO Q6H PRN pain #12 tabs 05/17/23 Allergies Allergy/AdvReac Type Severity Reaction Status Date / Time No Known Allergies Allergy Verified 05/17/23 16:29 Review of Systems 2 Constitutional: Constitutional: Denies body ache(s), Denies chills, Reports fever(s), Reports headache(s), Reports night sweats and Reports weakness (left lower extremity weakness) Eyes: Eyes: Reports no additional eye complaints, Denies blurry vision, Denies change in vision, Denies diplopia, Denies eye discharge, Denies loss of vision and Denies eye pain ENT: Reports Normal hearing present, Denies dizziness, Reports headache(s), Denies nasal congestion, Denies nasal discharge and Denies sore throat Cardiovascular: Cardiovascular: Reports chest pain, Reports lightheadedness, Denies Loss of Consciousness, Reports radiating jaw, neck or arm pain and Reports dyspnea Respiratory: Respiratory: Denies cough and Reports dyspnea Gastrointestinal: Gastrointestinal: Reports abdominal pain, Denies melena, Denies hematochezia, Denies change in bowel habits, Denies change in stool character, Reports GI cramping and Denies diarrhea Genitourinary: Genitourinary: Reports no additional male genitourinary complaints, Denies hematuria, Denies oliguria, Denies difficulty urinating, Denies dysuria, Denies urinary frequency, Denies urinary hesitancy, Denies urinary incontinence and Denies urinary urgency Musculoskeletal: Musculoskeletal: Reports numbness and Reports tingling Neurologic: Reports Normal hearing present, Denies dizziness, Reports headache(s), Denies loss of vision, Reports numbness, Reports tingling and Reports weakness (left lower extremity weakness) Psychiatric: Psychiatric: Reports no additional psychiatric complaints Endocrine: Endocrine: Reports no additional endocrine complaints Hematologic/Lymphatic: Hematologic/Lymphatic: Reports no additional hematologic/lymphatic complaints Allergic/Immunologic: Allergic/Immunologic: Reports no additional allergic/immunologic complaints [facility] Past Medical History Source: old records reviewed Social History Social History Advance Directives: No Advance Directives Information Provided: No Physical Exam ED Vital Signs: Vital Signs - 24 hr 05/20/23 13:37 05/20/23 16:00 05/20/23 18:00 Temperature 97 F 98.1 F 98.2 F Pulse Rate 71 55 54 Respiratory Rate 18 16 13 Blood Pressure 137/94 H 112/80 103/71 Pulse Oximetry 97 96 95 Oxygen Delivery Method Room Air Room Air Room Air BMI result Body Mass Index 27.2 Const General: cooperative, no acute distress, alert and awake Nutritional Appearance: average body habitus Orientation/consciousness: patient oriented x3 Limitations: no limitations HENMT Head: Yes normal to inspection Ears: hearing grossly normal bilaterally General nose exam: Normal external nose present Nose image: 2 1. Non-healing nasal lesion, patient states it has been there for a year Face and sinus: Yes normal facial exam Mouth: Normal oral and palatal mucosa present Throat: Yes posterior oropharynx normal Eyes General: appearance normal, both eyes and all related structures Pupils: Equal, round and reactive pupils present Neck Neck: Yes normal visual inspection Resp Effort & Inspection: normal respiratory effort and able to speak in complete sentences Auscultation: clear to auscultation bilaterally Cardio Jugular venous distension: no JVD Palpation: normal PMI Rate: regular rate Rhythm: regular rhythm GI Inspection: Yes normal to inspection Palpation (GI): Soft to palpation and Tenderness to palpation present (GI) in the epigastrum; not at McBurney's point, Walker's sign negative, obturator sign negative, psoas sign negative and with no rebound tenderness Auscultation: normal bowel sounds Male General Exam: Yes erythema Penis: normal penis Meatus: meatus normal Scrotum: erythematous (rash appears to be fungal) localized Neuro General: patient oriented x3 Cranial nerves: Yes Equal, round and reactive pupils present and Yes Normal hearing present Course Course Course Narrative: This is a rapid medical exam: Additional HPI, ROS, PE not included below will be deferred to primary provider. Patient is a 52-year-old male with history of afib and opioid use, on suboxone presenting to the ED with complaint of chest tightness, lightheaded after taking his metoprolol. Seen here recently for similar symptoms. States he has a stress test scheduled for monday morning and is also seeing GI on Monday. Plan: EKG, CXR, labs Medical Decision Making Medical Decision Making MDM Narrative: 52 year old male with a history of HTN, presenting to the ED complaining of a one year history of chest pain. Describes the pain as an aching pain that radiates to the left side of his body from his neck down to his distal lower extremity. Associated symptoms include SOB, fevers, night sweats, lightheadedness, dizziness, and a tingling hot sensation radiating down his left leg. So reported a rash on his inner thighs and on his scrotum. Denies fatigue, acute changes to mentation, changes to vision, nasal discharge/congestion, sore throat, chest palpitations, changes to bowel/urinary habits. No sick contacts, recent travel or antibiotic use. Patient reports with chest pain and non specific associated symptoms after recent visits for similar complaints on 05/17/23, 04/30/23/, 04/27/23, a Differential diagnosis: ?Includes but is not limited to Musculoskeletal chest wall pain likely etiology Will rule out myocardial infarction, pericarditis, Afib, PACS/PVCS Low suspicion of PE, no tachypnea, hypoxia, nor clinical findings of a DVT. Low suspicion for AAA due to insidous onset and long standing history of the chest pain. Low suspicion for ACS as symptoms have been present for 1 year, nonischemic EKG, troponin negative Course: Patients symptoms concerning for possible musculoskeletal chest pain likely costochondritis or plurisy.Will rule out more serious causes of chest pain to include ACS, pericarditis, PACS/PVCS, metabolic derrangements. ACS, pericarditis, PACS/PVS ruled out with EKG, no ischemic changes nor ST- segment changes, no presence of PACS or PVCS, troponins also stable at baseline level of 2.7. My interpretation patient's laboratory evaluation is as follows: CBC, CMP, Coagulation studies, troponins, UA, all within normal limits ruling out metabolic derangements and other potential causes of chest pain. Chest pain reproducible with pressure and palpation making the likelihood of a musculoskeletal etiology as the source of the pain. Based on history, PE, labs, and imaging patient was diagnosed with musculoskeletal chest pain. Differential Diagnosis Musculoskeletal chest wall pain likely etiology Will rule out myocardial infarction, pericarditis, Afib, PACS/PVCS Low suspicion of PE, no tachypnea, hypoxia, nor clinical findings of a DVT. Low suspicion for AAA due to insidous onset and long standing history of the chest pain. Low suspicion for ACS as symptoms have been present for 1 year, nonischemic EKG, troponin negative Admission/Observation Consideration of admission/observation: Escalation of care including admission/observation considered Lab Data MDM Lab Attestation statement: I reviewed the patient's lab results. 05/20/23 13:30 05/20/23 13:30 Labs: Lab Results 05/20/23 Range/Units 13:30 WBC 7.3 (4.8-10.8) X10*3/uL RBC 4.82 (4.60-5.80) X10*6/uL Hgb 15.0 (14.0-18.0) g/dl Hct 43.7 (42.0-52.0) % MCV 90.7 (80.0-98.0) fL MCH 31.1 (27.0-33.0) pg MCHC 34.3 (31.0-36.0) g/dl RDW 12.1 (11.0-16.0) % Plt Count 345 (160-400) X10*3/uL MPV 9.0 L (9.4-12.4) fL Immature Gran % (Auto) 0.1 (0.0-0.4) % Neut % (Auto) 73.3 H (45-73) % Lymph % (Auto) 19.1 L (20-40) % Fajardo % (Auto) 6.3 (2-11) % Eos % (Auto) 0.5 (0-4) % Baso % (Auto) 0.7 (0-2) % Lymph # (Auto) 1.4 (1.2-4.9) X10*3/uL F[place]ardo # (Auto) 0.5 (0.1-1.2) X10*3/uL Eos # (Auto) 0.0 (0.0-0.4) X10*3/uL Baso # (Auto) 0.1 (0.0-0.2) X10*3/uL Abs Immat Gran (auto) 0.01 (0.00-0.03) X10*3/uL Absolute Neuts (auto) 5.4 (2.0-8.3) x10*3/uL Absolute Nucleated RBC 0.000 (0.0-0.012) X10*3/uL Nucleated RBC % (auto) 0.0 (0.0-0.2) /100WBC PT 12.1 (11.1-13.3) SEC INR 1.0 (0.9-1.1) Sodium 141 (135-145) mmol/L Potassium 4.5 (3.3-5.1) mmol/L Chloride 105 (96-108) mmol/L Carbon Dioxide 29 (22-29) mmol/L Anion Gap 12 (12-20) BUN 12 (9-16) mg/dL Creatinine 1.18 (0.5-1.4) mg/dL Estim Creat Clear Calc 77.9 Estimated GFR > 60 Random Glucose 120 H (60-115) mg/dL Calcium 9.4 (8.4-10.2) mg/dL Total Bilirubin 0.5 (0.0-1.0) mg/dL AST 19 (5-37) U/L ALT 23 (0-40) U/L Alkaline Phosphatase 68 (39-117) U/L Troponin I High Sens < 2.7 (<3.5-35.0) ng/L Total Protein 7.0 (6.5-8.0) g/dL Albumin 4.2 (3.5-5.0) g/dL Independent Interpretation I performed an independent interpretation of an: EKG and Plain X-Ray Interpretation: My independent interpretation the patient's done at 13:23 hours is as follows: Sinus rhythm with a rate of 70, normal NC interval, QRS duration no ST segment elevation, no ST segment depression, no abnormalities, no PACs, no PVCs, this is a normal EKG My independent interpretation patient's chest x-ray is as follows: No acute disease Radiology Impression Discussion of test interpretation with radiology: I have reviewed the radiologist's reading. Radiologist Impression: XR chest 2V IMPRESSION: No acute cardiopulmonary findings. Dictated By: n External Record Review External record reviewed: Inpatient record, Office record and Prior outpatient radiology Tests considered The following testing was considered but not selected: D-dimer CT scan of the chest and abdomen Prescription Management I considered prescription management with: Pain Medication Chronic Conditions Patient?s care impacted by: Hypertension Social Determinants Patient?s care significantly limited by Social Determinants of Health including: Alcoholism and drug addiction in family Discharge Plan Discharge Clinical Impression: Chest pain Patient Disposition: Home, Self-Care Instructions: Chest Wall Pain (ED) Prescriptions: No Action oxycodone 5 mg tablet 5 mg PO Q6H PRN (Reason: pain) Qty: 12 0RF Rx Instructions: Partial Fill upon patient request. dexamethasone 4 mg tablet 4 mg PO BID Qty: 6 0RF Interventions: ED Discharge Assessment Last Done: 05/20/23 19:29 Discharge Date/Time: 05/20/23 19:30
[2023-05-20 13:41] LABS: Prothrombin Time 12.1 SEC (11.1-13.3)
[2023-05-20 13:42] LABS: Basophils Absolute Auto 0.1 X10*3/uL (0.0-0.2); Basophils Percent Auto 0.7 % (0-2); Eosinophils Percent Auto 0.5 % (0-4); Hematocrit 43.7 % (42.0-52.0); Imm Gran Abs Auto 0.01 X10*3/uL (0.00-0.03); Imm Gran Pct Auto 0.1 % (0.0-0.4); Lymphocytes Absolute Auto 1.4 X10*3/uL (1.2-4.9); Lymphocytes Percent Auto 19.1 % (20-40); Mean Corpuscular HGB Conc 34.3 g/dl (31.0-36.0); Mean Corpuscular Hemoglobin 31.1 pg (27.0-33.0); Mean Corpuscular Volume 90.7 fL (80.0-98.0); Monocytes Absolute Auto 0.5 X10*3/uL (0.1-1.2); Monocytes Percent Auto 6.3 % (2-11); Neutrophils Absolute Auto 5.4 x10*3/uL (2.0-8.3); Neutrophils Percent Auto 73.3 % (45-73); Platelet Count 345 X10*3/uL (160-400); Red Blood Count 4.82 X10*6/uL (4.60-5.80); Red Cell Distribution Width 12.1 % (11.0-16.0); White Blood Count 7.3 X10*3/uL (4.8-10.8)
[2023-05-20 14:05] LABS: Alanine Aminotransferase 23 U/L (0-40); Albumin Level 4.2 g/dL (3.5-5.0); Alkaline Phosphatase 68 U/L (39-117); Anion Gap 12 (12-20); Aspartate Amino Transferase 19 U/L (5-37); Bilirubin Total 0.5 mg/dL (0.0-1.0); Blood Urea Nitrogen 12 mg/dL (9-16); Calcium 9.4 mg/dL (8.4-10.2); Carbon Dioxide 29 mmol/L (22-29); Chloride 105 mmol/L (96-108); Creatinine Clr Calc Pharmacy 77.9; Estimated Glomerular Filt Rate > 60; Glucose Random 120 mg/dL (60-115); Potassium 4.5 mmol/L (3.3-5.1); Sodium 141 mmol/L (135-145)
[2023-05-20 14:20] LABS: Troponin-I High Sensitivity < 2.7 ng/L (<3.5-35.0)
[2023-05-20 16:00] VITALS: BP 112/80; PULSE 55; RESP 16; TEMP 36.7; O2SAT 96
[2023-05-20 18:00] VITALS: BP 103/71; PULSE 54; RESP 13; TEMP 36.8; O2SAT 95
--- NOTE | 2023-05-20 19:29 | PC.NURSE ---
per karin pt given verbal discharge instructions pt left prior to formal discharge
== END 2023-05-20 19:30 | disposition home or self-care (01) ==
PROVIDERS: Registered Nurse Emergency; Emergency Provider Emergency Medicine Emergency Medical Services; PCP Family Medicine
DX: R07.9 Chest pain, unspecified (principal); R21 Rash and other nonspecific skin eruption; R42 Dizziness and giddiness; L98.9 Disorder of the skin and subcutaneous tissue, unspecified; I10 Essential (primary) hypertension; I48.91 Unspecified atrial fibrillation; R06.02 Shortness of breath
CPT/HCPCS: 36415; 71046; 80053; 84484; 85025; 85610; 93005; 99284; 99285

== ENCOUNTER → 2023-05-20 13:20 | Outpatient (BNV) | payer MEDICAID, SELFPAY | PROVIDERS: Emergency Provider Emergency Medicine Emergency Medical Services; PCP Family Medicine; Visit Provider Internal Medicine Cardiovascular Disease | DX: R07.9 Chest pain, unspecified (principal) | CPT/HCPCS: 93010 ==

== ENCOUNTER 2023-06-10 17:43 | Emergency (ER) | payer MEDICAID, SELFPAY ==
--- NOTE | ~2023-06-10 | XR_ITS ---
EXAMINATION: XR CHEST CLINICAL INFORMATION: Chest pain COMPARISON: None available. TECHNIQUE: 2 views of the chest were obtained. FINDINGS: No significant abnormality is noted involving the heart, lungs, mediastinum, bony thorax or soft tissues. XR/XR chest 2V IMPRESSION: Unremarkable chest examination.
[2023-06-10 18:01] VITALS: BP 126/81; PULSE 73; RESP 18; TEMP 36.8; O2SAT 94; BMI 29.0
--- NOTE | 2023-06-10 18:03 | ECG_ITS ---
Test Reason : Pain Blood Pressure : / mmHG Vent. Rate : 073 BPM Atrial Rate : 073 BPM P-R Int : 146 ms QRS Dur : 098 ms QT Int : 402 ms P-R-T Axes : 050 002 049 degrees QTc Int : 442 ms Normal sinus rhythm Normal ECG When compared with ECG of 20-MAY-2023 13:23, No significant change was found Referred By: Deangelo Fierro Electronically Signed By:Jonel Maxwell
--- NOTE | 2023-06-10 18:04 | ED.GENADULT ---
HPI - General Adult General Chief complaint: Chest Pain Stated complaint: Chest pain Time Seen by Provider: 06/10/23 19:21 Source: patient Mode of arrival: ambulatory Limitations: no limitations History of Present Illness HPI narrative: Patient is a 52 year old assigned male at with a history of atrial fib presenting to the emergency department today with chest pain. Patient states that at 1845 he had an episode of very sharp chest pain that made him catch his breath and made it difficult for him to breathe. Patient states that it is better now. Patient states that this has been happening on and off for over a year and he has seen multiple doctors, including multiple cardiologists. Patient states that he is on lorazepam. Patient denies any dizziness, lightheadedness, abdominal pain, nausea, vomiting, fever, chills, blurry vision, double vision, loss of vision, back pain, night sweats, pain with urination, increased urinary frequency, increased urinary urgency, blood in his urine or stool, syncope or a near syncopal episode, recent trauma or falls, bowel incontinence, bladder incontinence, bowel retention, bladder retention, or any other complaints at this time. Onset (ago): year(s) Location: chest Relieving factors: none Exacerbating factors: none Associated symptoms: chest pain Treatments prior to arrival: none Related Data Previous Rx's Medication Instructions Recorded dexamethasone 4 mg tablet 4 mg PO BID #6 tabs 05/17/23 oxycodone 5 mg tablet 5 mg PO Q6H PRN pain #12 tabs 05/17/23 Allergies Allergy/AdvReac Type Severity Reaction Status Date / Time No Known Allergies Allergy Verified 05/17/23 16:29 Review of Systems Constitutional: Constitutional: Reports no additional constitutional complaints, Denies chills, Denies fever(s) and Denies night sweats Eyes: Eyes: Reports no additional eye complaints, Denies blurry vision, Denies change in vision, Denies diplopia, Denies eye discharge, Denies loss of vision and Denies eye pain ENT: Denies dizziness Cardiovascular: Cardiovascular: Reports no additional cardiovascular complaints, Reports chest pain (now resolved), Denies lightheadedness, Denies Loss of Consciousness and Denies dyspnea Respiratory: Respiratory: Reports no additional respiratory complaints and Denies dyspnea Gastrointestinal: Gastrointestinal: Reports no additional gastrointestinal complaints, Denies abdominal pain, Denies melena, Denies hematochezia, Denies change in bowel habits and Denies change in stool character Genitourinary: Genitourinary: Reports no additional male genitourinary complaints, Denies hematuria, Denies oliguria, Denies difficulty urinating, Denies dysuria, Denies urinary frequency, Denies urinary hesitancy, Denies urinary incontinence and Denies urinary urgency Musculoskeletal: Musculoskeletal: Reports no additional musculoskeletal complaints, Denies numbness and Denies tingling Neurologic: Denies dizziness, Denies loss of vision, Denies numbness and Denies tingling Psychiatric: Psychiatric: Reports no additional psychiatric complaints Endocrine: Endocrine: Reports no additional endocrine complaints Hematologic/Lymphatic: Hematologic/Lymphatic: Reports no additional hematologic/lymphatic complaints Allergic/Immunologic: Allergic/Immunologic: Reports no additional allergic/immunologic complaints PMFSH Past Medical History Attestation statement: The following information was validated with the patient. Source: old records reviewed and nursing notes reviewed Social History Social History Alcohol intake: current Smoked in Last 30 Days: Yes Use of substances other than those prescribed or required for medical reasons: No Advance Directives: No Advance Directives Information Provided: No Physical Exam ED Vital Signs: Vital Signs - 24 hr 06/10/23 18:01 06/10/23 19:33 06/10/23 20:08 Temperature 98.3 F 98.4 F 98.9 F Pulse Rate 73 61 59 Respiratory Rate 18 16 18 Blood Pressure 126/81 129/86 140/99 H Pulse Oximetry 94 94 98 Oxygen Delivery Method Room Air Room Air Room Air BMI result Body Mass Index 29.0 Const General: cooperative, no acute distress, alert and awake Nutritional Appearance: well nourished Orientation/consciousness: patient oriented x3 Limitations: no limitations [facility] Head: Yes normal to inspection and Yes atraumatic Ears: hearing grossly normal bilaterally and external ears normal General nose exam: Normal external nose present, no nasal discharge noted and no epistaxis Face and sinus: Yes normal facial exam, No abrasion and No laceration Mouth: Normal oral and palatal mucosa present, no drooling and no muffled voice Eyes General: appearance normal, both eyes and all related structures Periorbital: periorbital findings normal Eyelids: Yes eyelids normal Conjunctivae: conjunctivae normal Pupils: Equal, round and reactive pupils present EOM: EOMs intact bilaterally Neck Neck: Yes normal visual inspection, Yes full ROM and Yes no lymphadenopathy Chest Chest palpation & inspection: normal inspection of the chest Resp Effort & Inspection: normal respiratory effort and able to speak in complete sentences GI Inspection: Yes normal to inspection Neuro General: patient oriented x3 and moves all extremities Cranial nerves: Yes Equal, round and reactive pupils present Cognition (Neuro): normal cognition Motor exam (neuro): 5/5 motor strength present throughout Sensory Exam: Normal double simultaneous stimulation for sensation Coordination: [id number] test normal Extrem General: Yes normal to inspection, Yes full ROM and Yes capillary refill normal Psych Appearance: grossly normal Mental Status: mental status grossly normal Affect: normal affect Attitude: cooperative Thought process: Normal thought process present Thought content: Normal thought content present Insight: Good insight present (Psych) Course Course Course Narrative: Patient complains of chest pain today radiating into his neck and back, he has had similar episodes in the past Vital signs are stable EKG and labs and x-ray are ordered This is rapid medical exam done in triage spinning full evaluation and dispo by ER provider Medications Administered Discontinued Medications Generic Name Dose Route Start Last Admin Trade Name Freq PRN Reason Stop Dose Admin Lorazepam 2 mg 06/10/23 19:39 06/10/23 20:04 Lorazepam 1 Mg Tablet PO 06/10/23 19:40 2 mg ONCE ONE Administration Medical Decision Making Medical Decision Making [facility] Narrative: Patient is a 52 year old assigned male at with a history of atrial fib presenting to the emergency department today with now resolved chest pain. Patient's physical exam was unremarkable. Patient's blood work was unremarkable. Patient's EKG was unremarkable. Patient's x-ray showed no acute process. I explained my physical exam findings as well as all test results to the patient. I answered all questions asked by the patient. The patient was frustrated that again nothing was found to answer why this continues to happen. I explained to the patient that if he is continually frustrated by the care he receives in this area, it may be time for him to get other opinions outside of this area. Patient verbalized understanding. I stressed the importance of the patient taking his medication as prescribed. I stressed the importance of the patient following up with his primary care provider and svp marketing. I stressed the importance of the patient returning to the emergency department immediately if his symptoms were to worsen or if he were to develop any dizziness, shortness of breath, difficulty breathing, chest pain, blurry vision, loss of vision, nausea, vomiting, abdominal pain, fever, chills, back pain, or any other complaints. Patient verbalized agreement and understanding with this treatment plan and discharge. Differential Diagnosis Differential Diagnoses: The differential diagnosis associated with the presentation includes Chest pain NSTEMI STEMI Palpitations Anxiety Paroxysmal arrhythmia Admission/Observation Consideration of admission/observation: Escalation of care including admission/observation considered Patient would have been admitted to the hospital had his work up had any findings where hospital admission was appropriate and his clinical presentation warranted hospital admission. Lab Data [facility] Lab Attestation statement: I reviewed the patient's lab results. My interpretation of these results are in the [facility] Rationale portion of this note. 06/10/23 18:27 06/10/23 18:27 Labs: Lab Results 06/10/23 Range/Units 18:27 WBC 6.6 (4.8-10.8) X10*3/uL RBC 4.79 (4.60-5.80) X10*6/uL Hgb 14.9 (14.0-18.0) g/dl Hct 43.8 (42.0-52.0) % MCV 91.4 (80.0-98.0) fL MCH 31.1 (27.0-33.0) pg MCHC 34.0 (31.0-36.0) g/dl RDW 12.4 (11.0-16.0) % Plt Count 328 (160-400) X10*3/uL MPV 8.5 L (9.4-12.4) fL Immature Gran % (Auto) 0.2 (0.0-0.4) % Neut % (Auto) 65.6 (45-73) % Lymph % (Auto) 23.2 (20-40) % [place] % (Auto) 9.1 (2-11) % Eos % (Auto) 1.1 (0-4) % Baso % (Auto) 0.8 (0-2) % Lymph # (Auto) 1.5 (1.2-4.9) X10*3/uL [place] # (Auto) 0.6 (0.1-1.2) X10*3/uL Eos # (Auto) 0.1 (0.0-0.4) X10*3/uL Baso # (Auto) 0.1 (0.0-0.2) X10*3/uL Abs Immat Gran (auto) 0.01 (0.00-0.03) X10*3/uL Absolute Neuts (auto) 4.3 (2.0-8.3) x10*3/uL Absolute Nucleated RBC 0.000 (0.0-0.012) X10*3/uL Nucleated RBC % (auto) 0.0 (0.0-0.2) /100WBC Sodium 139 (135-145) mmol/L Potassium 4.8 (3.3-5.1) mmol/L Chloride 105 (96-108) mmol/L Carbon Dioxide 28 (22-29) mmol/L Anion Gap 11 L (12-20) BUN 16 (9-16) mg/dL Creatinine 1.14 (0.5-1.4) mg/dL Estim Creat Clear Calc 88.8 Estimated GFR > 60 Random Glucose 97 (60-115) mg/dL Calcium 9.1 (8.4-10.2) mg/dL Troponin I High Sens < 2.7 (<3.5-35.0) ng/L Independent Interpretation I performed an independent interpretation of an: EKG and Plain X-Ray Interpretation: My interpretation is in agreement with the radiologist's impression of this imaging study. EXAMINATION: XR CHEST CLINICAL INFORMATION: Chest pain COMPARISON: None available. TECHNIQUE: 2 views of the chest were obtained. FINDINGS: No significant abnormality is noted involving the heart, lungs, mediastinum, bony thorax or soft tissues. XR/XR chest 2V IMPRESSION: Unremarkable chest examination. Dictated By: Thang Tate MD Signed By: Electronically signed by Thang Tate MD 06/10/23 1840 Vent. Rate: 073 BPM Atrial Rate: 073 BPM P-R Int: 146 ms QRS Dur: 098 ms QT Int: 402 ms P-R-T Axes: 050 002 049 degrees QTc Int: 442 ms Normal sinus rhythm Normal ECG 06/10/23 0167 Radiology Impression Discussion of test interpretation with radiology: I have reviewed the radiologist's reading. Discharge Plan Discharge Clinical Impression: Atypical chest pain Patient Disposition: Home, Self-Care Instructions: Chest Pain (ED) Additional Instructions: Your EKG, chest x-ray, and lab work was all reassuring. Follow up with your primary care provider and a svp [employer]. Return to the emergency department immediately if your symptoms worsen or if you develop any dizziness, shortness of breath, difficulty breathing, chest pain, blurry vision, loss of vision, nausea, vomiting, abdominal pain, fever, chills, back pain, or any other complaints. Prescriptions: No Action oxycodone 5 mg tablet 5 mg PO Q6H PRN (Reason: pain) Qty: 12 0RF Rx Instructions: Partial Fill upon patient request. dexamethasone 4 mg tablet 4 mg PO BID Qty: 6 0RF Referrals: [facility] [Provider Group] (Call to establish and follow up with a svp marketing. If you already have a svp marketing, please follow up with them.) Carolyn Khan MD [Primary Care Provider] - Stand Alone Forms: Work/School Release Interventions: ED Discharge Assessment Last Done: 06/10/23 20:08 Discharge Date/Time: 06/10/23 20:09 Print Language: Chinese
--- OUTSIDE RECORDS SUMMARY | 2023-06-10 18:24 | XMS_ITS | Continuity of Care Document ---
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 Role Phone Pepe Dias Primary Care Physician Encounter [facility] [id number] Date(s): 04/25/23 - 04/26/[address] [address]- Discharge Disposition: A-D/C Walkout Attending Physician: Not on Staff, Attending MD Admitting Physician: Not on Staff, Admitting MD Referring Physician: Not on Staff, Referring MD Allergies, Adverse Reactions, Alerts Substance Reaction Severity Status iohexol Active Medications acetaminophen 325 mg oral tablet 650 mg, By Mouth, Every 4 hours, PRN, Temperature Greater than 100.5, Refills 0, Maintenance, Pain , Mild, 11/20/22 15:10:00 EDT, Partial fill upon patient request if the prescription is for a schedule II opioid drug. Start Date: 11/20/22 Status: Ordered amitriptyline 10 mg oral tablet 10 mg, 1, tablet, By Mouth, Daily at bedtime, TAKE 1 TABLET BY MOUTH EVERY DAY, # 30 tablet, Refills 0, Tot. Refills 0, Maintenance, 02/02/23 9:04:00 EST, Route to Pharmacy Electronically, [facility], Partial fill upon patient request if... Start Date: 02/02/23 Stop Date: 03/04/23 Status: Ordered hydrOXYzine pamoate 50 mg oral capsule 1 capsule = 50 mg, By Mouth, 4 times a day, TAKE 1 CAPSULE BY MOUTH UP TO FOUR TIMES DAILY NEEDED FOR MILD TO MODERATE ANXIETY, # 60 capsule, 0 Refills, Maintenance, 02/02/23 9:04:00 EST, Capsule,[facility], Partial fill upon patient... Start Date: 02/02/23 Status: Ordered LORazepam 1 mg oral tablet TAKE 0.5-1 TABLET BY MOUTH TWICE DAILY NEEDED FOR SEVERE ANXIETY Start Date: 02/02/23 Status: Ordered Melatonin 10 mg oral tablet, disintegrating TAKE 1 TABLET BY MOUTH DAILY DIRECTED BEFORE SLEEP Start Date: 02/02/23 Status: Ordered metoprolol 25 mg oral tablet 25 mg, 1, tablet, By Mouth, 2 times a day, # 60 tablet, Refills 0, Tot. Refills 0, Maintenance, 02/02/23 9:10:00 EST, Route to Pharmacy Electronically, [facility], Partial fill upon patient request if the prescription is for a schedule I... Start Date: 02/02/23 Stop Date: 03/04/23 Status: Ordered omeprazole 20 mg oral enteric coated capsule 1 capsule = 20 mg, By Mouth, 2 times a day, # 90 capsule, 0 Refills, Maintenance, 11/19/22 18:57:00EDT, EC Capsule, Partial fill upon patient request if the prescription is for a schedule II opioid drug. Start Date: 11/19/22 Status: Ordered Suboxone 8 mg-2 mg sublingual film 1 film, Sublingual, 2 times a day, dissolve under the tongue, 0 Refills, Maintenance, 02/26/21 10:42:00 EST, Film, Partial fill upon patient request if the prescription is for a schedule II opioid drug. Start Date: 02/26/21 Status: Ordered Xarelto 20 mg oral tablet 1 tablet = 20 mg, By Mouth, Daily in PM, with evening meal, # 30 tablet, 0 Refills, Maintenance, 11/19/22 18:58:00 EDT, Tablet, Partial fill upon patient request if the prescription is for a scheduleII opioid drug. Start Date: 11/19/22 Status: Ordered Problem List Condition Confirmation Course Effective Dates Status Health St at[facility] Informant GERD (gastroesophageal reflux disease) Confirmed Active [place] (generalized anxiety disorder) Confirmed Active History of alcohol use disorder Confirmed Active Opiate dependence Confirmed Active Paroxysmal atrial fibrillation Confirmed Active Results Radiology Reports * Exam Date Time Procedure Performing Provider Status 04/25/23 12:44 PM Chest 2 Views Frontal and Lat Debbie Pizano; Wale (Verified) Notes: (Chest 2 Views Frontal and Lat) Reason For Exam: Chest Pain;Other: RESULT: Chest 2 Views Frontal and Lat Chest 2 Views Frontal and Lat Hx of Present Illness: Chest pain x 1 yr, states its all in my records, you can see it there . States he was just discharged from [facility]; Reason: Other:; Chest Pain; Clinical Question(s): Other: COMPARISON: Multiple prior chest radiographs with the most recent dated 03/10/2023. FINDINGS: LINES AND TUBES: None. LUNGS AND PLEURA: Clear lungs. Normal pulmonary vascularity. No pleural effusion. No pneumothorax. HEART, MEDIASTINUM AND CATE: Heart is normal in size. Normal mediastinal and hilar contour. BONES AND SOFT TISSUES: No acute abnormality. IMPRESSION: No acute abnormality. No significant interval change. WSN: [id number] Ordering Physician: Juma Koch Dictated By: Alexsander Davis MD, V Dictated Date/Time: 04/25/23 12:48 p Reviewed By: Alexsander Davis MD, V Signed By: Alexsander Davis MD, V Signed Date/Time: 04/25/23 12:48 pm Transcribed By: ARON Transcribed Date/Time: 04/25/23 12:47 pm Vital Signs Most recent to oldest [Reference Range]: 1 2 3 Height 180 cm (04/26/23 6:09 AM) 180 cm (04/26/23 2:58 AM) 180 cm (04/25/23 11:38 AM) Weight 91 kg (04/26/23 6:09 AM) 91 kg (04/26/23 2:58 AM) 91 kg (04/25/23 11:38 AM) Oxygen Saturation [94-100 %] 100 % (04/26/23 6:47 AM) 100 % (04/26/23 3:06 AM) 99 % (04/25/23 1:36 PM) Pulse Rate [55-90 bpm] 64 bpm (04/26/23 6:47 AM) 66 bpm (04/26/23 3:06 AM) 71 bpm (04/25/23 1:36 PM) Body Mass Index [18.5-24.99 kg/m2] 28.09 kg/m2 *H* (04/25/23 11:38 AM) Blood Pressure [90-138/55-84 mm Hg] 125/93mm Hg (04/26/23 6:47 AM) 132/104mm Hg (04/26/23 3:06 AM) 154/102mm Hg *H* (04/25/23 1:36 PM) Respiratory Rate [16-30 br/min] 18 br/min (04/25/23 1:36 PM) 18 br/min (04/25/23 11:38 AM) Temperature [96.8-100.4 DegF] 97.3 DegF (04/26/23 6:47 AM) 97.6 DegF (04/26/23 3:06 AM) 98.9 DegF (04/25/23 1:36 PM) Mode of Delivery (Oxygen) Room air (04/25/23 1:36 PM) Room air (04/25/23 11:38 AM) Room air (04/25/23 11:32 AM) Blood pressure sites Arm, right (04/26/23 6:47 AM) Arm, left (04/26/23 3:06 AM) Arm, left (04/25/23 1:36 PM) Temperature Route Oral (04/26/23 6:47 AM) Oral (04/26/23 3:06 AM) Oral (04/25/23 1:36 PM) Dry Weight 91 kg (04/26/23 6:09 AM) 91 kg (04/26/23 2:58 AM) 91 kg (04/25/23 11:38 AM) Weight Obtained Via Patient/family state d (04/25/23 11:38 AM) Dry Weight Obtained Via Patient/family s tated (04/25/23 11:38 AM) Social History Social History Type Response Smoking Status 10 or more cigarette s (1/2 pack or more)/day in last 30 days entered on: 05/07/22 Sex EKG study * Event Display: ECG 12-Lead Authored Date: Please click on pdf link to open report * Event Display: ECG 12-Lead Authored Date: Ventricular Rate: 69 BPM Atrial Rate: 69 BPM P-R Interval: 144 ms QRS Duration: 100 ms Q-T Interval: 406 ms QTC Calculation(Bazett): 435 ms P [place]: 60 degrees R [place]: 37 degrees T [place]: 63 degrees Normal sinus rhythm Normal ECG When compared with ECG of 25-APR-2023 11:53, No significant change was found Confirmed by JUAN SAMS MD ([id number]) on 04/26/2023 9:39:49 AM Dunn: JUAN SAMS MD * Event Display: ECG 12-Lead Authored Date: Please click on pdf link to open report * Event Display: ECG 12-Lead Authored Date: Ventricular Rate: 81 BPM Atrial Rate: 81 BPM P-R Interval: 148 ms QRS Duration: 94 ms Q-T Interval: 384 ms QTC Calculation(Bazett): 446 ms P [place]: 65 degrees R [place]: 35 degrees T [place]: 63 degrees Sinus rhythm with occasional Premature ventricular complexes Otherwise normal ECG When compared with ECG of 11-MAR-2023 17:02, Premature ventricular complexes are now Present Confirmed by JUAN SAMS MD ([id number]) on 04/26/2023 9:39:42 AM Dunn: JUAN SAMS MD Patient Care team information Care Team Personnel Name: Nuvia Perez RN Position: S RN Member Role: Primary Care Nurse Name: John Joaquin RN Position: S RN Member Role: Primary Care Nurse Name: Dilcia Hartmann Position: S RN Member Role: Primary Care Nurse Name: Kavita Laguna RN Position: S RN Member Role: Primary Care Nurse Name: Pepe Dias Position: S Outreach Member Role: PCP Address: Address: [address] [place] [address] Name: Bhupendra Gonzalez RN Position: S RN Member Role: Primary Care Nurse Name: Yenny Vergara Position: S RN Member Role: Primary Care Nurse Care Team Related Persons Name: ABRAHAM NARVAEZ Address: home [address] [place] [id number]
--- OUTSIDE RECORDS SUMMARY | 2023-06-10 18:24 | XMS_ITS | Continuity of Care Document ---
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 Primary Care Physician [phone] [place] [facility] [place]): [place]01[place]22 - 04/02/[address] [address]- Discharge Disposition: A-D/C Home Attending Physician: Jason Mccurdy MD, Fercho Admitting Physician: Pablo RENEE, Dexter Referring Physician: Not on Staff, Referring MD Allergies, Adverse Reactions, Alerts No Known Allergies Immunizations Not Given Vaccine Date Status Refusal Reason SARS-CoV-2 (COVID-19) mRNA BNT-162b2 vac 1 02/27/21 Not Given Patient Refuses influenza virus vaccine, inactivated 2 02/27/21 No t Given Patient Refuses 1Result Comment: Pt does not want the covid vaccine during hospitalization, will get outpatient 2Result Comment: Pt does not want the flu vaccine, refused Medications aspirin 81 mg oral delayed release tablet 81 mg, 1, tablet, By Mouth, Daily, # 30 tablet, Refills 1, Tot. Refills 1, Maintenance, 04/02/22 9:51:00 EST, Route to Pharmacy Electronically, [facility], Partial fill upon patient request if the prescription is for a schedule II opioid... Start Date: 04/02/22 Stop Date: 06/01/22 Status: Ordered Cardizem CD 120 mg/24 hours oral capsule, extended release 120 mg, CD Capsule, By Mouth, 04/02/22 9:00:00 EST Start Date: 04/02/22 Stop Date: 04/02/22 Status: Completed Cardizem CD 120 mg/24 hours oral capsule, extended release 120 mg, 1, capsule, By Mouth, Daily, # 30 capsule, Refills 1, Tot. Refills 1, Maintenance, 239:51:00 EST, Route to Pharmacy Electronically, [facility], Partial fill upon patient request if the prescription is for a schedule II opi... Start Date: 04/02/22 Stop Date: 06/01/22 Status: Ordered Suboxone 8 mg-2 mg sublingual film 1 film, Sublingual, 2 times a day, dissolve under the tongue, 0 Refills, Maintenance, 02/26/21 10:42:00 EST, Film, Partial fill upon patient request if the prescription is for a schedule II opioid drug. Start Date: 02/26/21 Status: Ordered Problem List Condition Confirmation Course Effective Dates Status Health St atus Informant Atrial fibrillation Confirmed Active Results Radiology Reports * Exam Date Time Procedure Performing Provider Status 04/01/22 11:05 AM Chest 2 Views Frontal and Lat Jamie Chaudhary; Wale (Verified) Notes: (Chest 2 Views Frontal and Lat) Reason For Exam: Shortness of Breath RESULT: Chest 2 Views Frontal and Lat Chest 2 Views Frontal and Lat HX OF PRESENT ILLNESS: Rapid Afib COMPARISON: 09/07/2021 FINDINGS: LINES AND TUBES: None. LUNGS AND PLEURA: Clear lungs. Normal pulmonary vascularity. No pleural effusion. No pneumothorax. HEART, MEDIASTINUM AND CATE: Heart is normal in size. Normal mediastinal and hilar contour. BONES AND SOFT TISSUES: No acute abnormality. IMPRESSION: No acute cardiopulmonary process. I have personally reviewed the images and I agree with this report. WSN: [id number] Ordering Physician: Dallin Whitney Dictated By: Adrian Murillo MD Dictated Date/Time: 04/01/22 11:12 a Reviewed By: Dexter Domínguez MD Signed By: Dexter Domínguez MD Signed Date/Time: 04/01/22 11:17 am Transcribed By: ARON Transcribed Date/Time: 04/01/22 11:06 am Vital Signs Most recent to oldest [Reference Range]: 1 2 3 Oxygen Saturation [94-100 %] 97 % (04/02/22 10:56 AM) 97 % (04/02/22 5:10 AM) 97 % (04/02/22 2:41 AM) Pulse Rate [55-90 bpm] 68 bpm (04/02/22 10:56 AM) 70 bpm (04/02/22 8:43 AM) 57 bpm (04/02/22 5:10 AM) Blood Pressure [90-138/55-84 mm Hg] 132/78mm Hg (04/02/22 10:56 AM) 113/82mm Hg (04/02/22 8:43 AM) 102/80mm Hg (04/02/22 5:10 AM) Respiratory Rate [16-30 br/min] 18 br/min (04/02/22 10:56 AM) 10 br/min *L* (04/02/22 5:10 AM) 11 br/min *L* (04/02/22 2:41 AM) Temperature [96.8-100.4 DegF] 98.1 DegF (04/02/22 10:56 AM) 98.3 DegF (04/02/22 8:43 AM) 98.6 DegF (04/02/22 12:08 AM) Mode of Delivery (Oxygen) Room air (04/02/22 10:56 AM) Room air (04/02/22 5:10 AM) Room air (04/02/22 2:41 AM) Blood pressure sites Arm, right (04/02/22 10:56 AM) Arm, right (04/02/22 5:10 AM) Arm, right (04/02/22 2:41 AM) Temperature Route Oral (04/02/22 12:08 AM) Oral (04/01/22 7:19 PM) Oral (04/01/22 6:34 PM) Social History Social History Type Response Smoking Status 10 or more cigarette s (1/2 pack or more)/day in last 30 days entered on: 09/07/21 Sex Admission evaluation note * Jesus Moe MD: MODIFY Jesus Moe MD: MODIFY, MODIFY, PERFORM Rebecca RENEE, Maisha Anguiano: PERFORM Event Display: Admission Note Authored Date: Patient: ??TASNEEM QUIROGA ? Age:??51 Years?Sex:??Male?:??1970?? Chief Complaint/Reason for Consultation Rapid Afib History of Present Illness 51 yo M with PMH of A.fibrillation, alcohol use, drug use now on Suboxone presenting with palpitations and dizziness??that began this morning. 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 He said??the palpitations were radiating to his left rib cage.??He said he was concerned because??this episode felt similar to when he??was admitted to [facility] in August for??Atrial fibrillation. ?? Of note Patient was first diagnosed with atrial fibrillation in 2008. He has had 3??prior??episodesof palpitations during which he was found to have atrial fibrillation with RVR within the??1-2 years. Most recently he was seen in the ED in May 2021 where he underwent electrical cardioversion forpersistent Afib w/ RVR after chemical conversion failed. He was discharged home with metoprolol and rivaroxaban with plan for outpatient cardiology follow up which has not yet happened. He represented in August with afib with RVR in setting of note taking Metoprolol because he felt funny and stopped taking it. and was discharged on Diltiazem, he tried it for 3 weeks but stated it madehim feel dizziness and lightheaded and stopped taking his medications and felt great. ? In the ED he was found to be in afib with RVR and was given Cardizem IV push/Started on oral therapy with initial response but when back to Rapid rate and was initiated on a drip. Upon bedside??evaluation, he denies chest pain or any shortness of breath. He said he feels markedly better and he currently feels no palpitation. feels back to baseline ? Past Surgical History Non-contributory ?? Social History Tobacco - Current smoker. 1/2??pk per day Alcohol -??Social drinking, 1-4 nips at a time, weekends Illicit substances - Denies. Required chronic morphine for MSK injury, was switched to Suboxone??10+ yrs ago with good affect Review of Systems Negative except for as above. Objective Vital Signs?? Temperature: 98.4 DegF (04/01/22 12:49:00) Temperature Route: Oral (04/01/22 12:49:00) Pulse Rate:??145 bpm??High (04/01/22 12:49:00) Respiratory Rate: 19 br/min (04/01/22 12:49:00) Systolic Blood Pressure: 132 mm Hg (04/01/22 12:49:00) Diastolic Blood Pressure: 84 mm Hg (04/01/22:49:00) Blood pressure sites: Arm, right (04/01/22:49:00) Mean Arterial Pressure: 114 mm Hg (04/01/22 09:22:00) Pulse Pressure: 55 mm Hg (04/01/22 09:22:00) Oxygen Saturation: 100 % (04/01/22 12:49:00) Mode of Delivery (Oxygen): Room air (04/01/22 12:49:00) Early Warning Score: 4 (04/01/22 12:52:02) ?? Physical Exam General: no acute distress, awake, alert HEENT: NCAT, EOM grossly intact, trachea midline CV: RRR Pulm: nonlabored breathing bilaterally Abd: soft, nontender, nondistended, no rebound or guarding Ext: moving all extremities spontaneously, no lower extremity edema Vasc: palpable radial and pedal pulses bilaterally Skin: no rash on limited exam, warm and well-perfused Neuro: answers questions appropriately, 5/5 strength in all extremities, sensation grossly intact, CN II-XII grossly intact Psych: appropriate Assessment/Plan 51 yo M with PMH of A.fibrillation, alcohol use, drug use now on Suboxone presenting with palpitations and dizziness??that began this morning found to be in A-fib with RVR. ?? Paroxysmal A. Fibrillation with RVR Most likely due to medication nonadherence - Risk Factors, alcohol use and possibly undiagnosed sleep apnea - Patient denies any drug use recently, and has been adherent with his medication regimen of Suboxone at home. He does not have any excessive alcohol use lately and does not appear to be in withdrawal. - He denies any recent illnesses and has been feeling good. - Elevated troponins, but no evidence of ACS. - Will pursue rate control for now and consult cardiaology in regards of plans for Rythm control ifhe doesn't self convert. ?? Plan: - Cardiac Tele - Continue Cardizem CD 120mg, - Down titrate drip. - Cardiology consult - -ChadVasc 0. Will start baby aspirin as per card suggestion - Sleep study outpatient. ?? #Chronic opioid dependence Patient with hx of chronic morphine requirement for MSK pain, has been stable on Suboxone 8mg/2mg BID for >10yrs - Continue home Suboxone ?? Quality measures Code status: FULL Diet: Cardiac Diet Dvt px: Enoxaparin Subq ?? Patient seen and discussed with attending physician Dr. Shah ?? Maisha Fernandez. Histories Allergies Allergies ?(Active and Proposed Allergies Only) NKA? (Severity: Unknown severity, Onset: Unknown) ? Past Medical History/Problem List Active Problems??(2) Atrial fibrillation Atrial fibrillation ?? Medications Home Medications Buprenorphine-Naloxone (Suboxone 8 mg-2 mg sublingual film)?1?Film?Sublingual?2 times aday?dissolve under the tongue ? Inpatient Medications Medications (5) Active SCHEDULED: (4) Aspirin 81 mg EC Tablet (Aspirin Tablet) ??81 mg, By Mouth, Daily Buprenorphine 8 mg Tablet (Buprenorphine Tablet) ??8 mg, Sublingual, 2 times a day Diltiazem 120 mg/24 hour CD Capsule (Cardizem CD 120 mg/24 hours oral capsule, extended release) ??120 mg, By Mouth, Daily Enoxaparin 40 mg Inj (Enoxaparin Inj) ??40 mg 0.4 mL, Subcutaneous Injection, Daily CONTINUOUS: (1) Diltiazem 125 mg/D5W (125 mL) 125 mg (Diltiazem 125 mg /125 mL D5W 125 mg) ??125 mg 125 mL, IV Infusion PRN: (0) ? Results Recent Labs BLOOD COUNT & DIFF WBC 8.5 k/mm3 ()?? 04/01/2022 10:15 RBC 4.43 m/mm3 (Low)?? 04/01/2022 10:15 Hgb 13.8 Gm/dL ()?? 04/01/2022 10:15 Hct 41.0 % ()?? 04/01/2022 10:15 MCV 92.6 femtoliters ()?? 04/01/2022 10:15 MCH 31.2 pg ()?? 04/01/2022 10:15 MCHC 33.7 g/dL ()?? 04/01/2022 10:15 Platelet Count 353 k/mm3 ()?? 04/01/2022 10:15 RDW-SD 43.6 femtoliters ()?? 04/01/2022 10:15 MPV 9.1 femtoliters (Low)?? 04/01/2022 10:15 Nucleated RBC (Automated) 0.0 #/100 WBC'S ()?? 04/01/2022 10:15 Abs. NRBC 0.0 k/mm3 ()?? 04/01/2022 10:15 Abs. Neut 6.5 k/mm3 ()?? 04/01/2022 10:15 Abs. Lymph 1.2 k/mm3 ()?? 04/01/2022 10:15 Abs. Assumption 0.7 k/mm3 ()?? 04/01/2022 10:15 Abs. Eo 0.0 k/mm3 ()?? 04/01/2022 10:15 Abs. Baso 0.0 k/mm3 ()?? 04/01/2022 10:15 Neut % 76.3 % (High)?? 04/01/2022 10:15 Lymph % 14.4 % (Low)?? 04/01/2022 10:15 Assumption % 7.9 % ()?? 04/01/2022 10:15 Eos % 0.4 % ()?? 04/01/2022 10:15 Baso % 0.5 % ()?? 04/01/2022 10:15 Imm Gran 0.5 % ()?? 04/01/2022 10:15 Abs. Imm Gran 0.0 k/mm3 ()?? 04/01/2022 10:15 ?? CARDIAC Nt-Probnp 131 pg/mL (High)?? 04/01/2022 10:15 High Sensitivity Troponin (HSTnT) 34 ng/L (High)?? 04/01/2022 12:13 ?? CHEM GENERAL Sodium 133 mmol/L ()?? 04/01/2022 10:15 Potassium 4.8 mmol/L ()?? 04/01/2022 10:15 Chloride 101 mmol/L ()?? 04/01/2022 10:15 Bicarbonate Level 25 mmol/L ()?? 04/01/2022 10:15 Anion Gap 7 ()?? 04/01/2022 10:15 Glucose Level 121 mg/dL (High)?? 04/01/2022 10:15 BUN 12 mg/dL ()?? 04/01/2022 10:15 Creatinine-Blood 0.9 mg/dL ()?? 04/01/2022 10:15 Estimated GFR Creatinine 105 ML/MIN/1.73 M2 ()?? 04/01/2022 10:15 Calcium 8.8 mg/dL ()?? 04/01/2022 10:15 Magnesium 1.9 mg/dL ()?? 04/01/2022 10:15 ?? ENDOCRINE/TUMOR MARKER TSH 1.00 uIU/mL ()?? 04/01/2022 10:15 ? Microbiology ?? COVID-19 (2019 Novel Coronavirus) PCR?? Collected?? Source: Nasal Body Site: Nose Collected Dt/Tm: 04/01/2022 12:50 Last Updated Dt/Tm: 04/01/2022 12:50 ? Blood Gases?? No qualifying data available. ?? * Fernando RENEE, Rosetta Anguiano: PERFORM Event Display: Admission Note Authored Date: Received a page from RN that patient is sustaining HR 60-70, still in a fib. Patient is on diltiazem drip at 2.5 mg/hr. Per HPI and cardiology note, plan to wean off drip and patient had been startedon PO diltiazem. Diltiazem drip DCed. * Dexter Shah MD: PERFORM Event Display: Admission Note Authored Date: Attending Attestation:??I saw and examined the patient with the resident team and reviewed the chart on the day of service. ??I have discussed the case and its management??with the resident as documented in the resident note on the day of service.??I agree with the resident's note and plan as documented. Hospital Progress note * Sally RENEE, Doroteo N: PERFORM Event Display: Progress Note Hospital Authored Date: [id number] Patient: ??TASNEEM QUIROGA ? Age:??51 Years?Sex:??Male?:??1970?? 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 Villegas IP) Indication for Consult Rapid Afib History of Present Illness/Interval History 51-year-old gentleman with a past medical history significant for paroxysmal atrial fibrillation previously on diltiazem and rivaroxaban however not taking any medications over the past few months, significant alcohol use, drug use now on Suboxone who presents once again for atrial fibrillation. ??Patient states that this is his fourth time going into A. fib over the past couple years or so. ??Hehas been admitted a couple times before for similar reasons. ??He underwent a cardioversion once inthe past. ??He was trialed on metoprolol however could not tolerate due to excessive fatigue. ??More recently, he was in the hospital of August 2021 with A. fib RVR that spontaneously converted to sinus rhythm and was discharged on diltiazem 120 mg daily in addition to rivaroxaban 20 mg daily. ??Patient states that since his discharge, while he was taking his medications, he felt excessively fatigued and not himself. ??A few weeks after his discharge, he decided to stop his medications completely(diltiazem and rivaroxaban). ??He states that since he stopped his meds, he felt like a brand-new person again as if he was back in high school. ??He denies any chest pain, shortness of breath, lowerextremity swelling, dizziness or lightheadedness. ??Earlier today, he felt palpitations and did notfeel well prompting him to present once again to the ER. ??In the ER, the patient was found to be in A. fib with RVR. ??Patient received IV diltiazem 20 mg x 1 then was started on a diltiazem drip. ??A cardiology consultation was requested for further evaluation and recommendations. ?? Overnight, patient successfully converted to sinus rhythm. Feeling much better this AM. Off cardizem gtt. Started on PO diltiazem 120mg CD daily, tolerating well. Review of Systems ?Constitutional, Eye, Skin, Head/Neck, ENMT, Respiratory, Cardio, Gastrointestinal, Breast, Gynecologic, Genitourinary, Endocrine, Muscoloskeletal, Immunologic, Hematologic, Lymphatic, Neurologic,Psych reviewed and negative except as noted in HPI. ? Physical Exam Vitals & Measurements T:??98.1?F ?? DE:??68?? RR:??18?? BP:??132/78?? SpO2:??97%?GENERAL: The patient is lying in bed comfortably, in no acute distress. ?HEENT: NC/AT. PERRL. EOMI. Anicteric sclerae. ?NECK: Supple, intact. No JVD. Trachea midline. No lymphadenopathy appreciated. ?CVS: RRR. Normal S1/S2. No murmurs, rubs or gallops. ?PULM: CTA bilaterally. No wheezes, rales or rhonchi. ?ABDOMEN: Soft, nontender, nondistended. Positive bowel sounds in all 4 quadrants. No hepatosplenomegaly. ?EXTREMITIES: No edema. Peripheral pulses intact bilaterally. ?NEURO: AOx3. Intact, non-focal motor and sensory exam. CN II-XII grossly intact.?SKIN: Dry, clean, intact. No rash or ulcer. No apparent nail changes. ?MSK: No joint swelling, erythema or tenderness. ?PSYCH: Good insight. No depression or suicidal ideation. ? Assessment/Plan 1.??Atrial fibrillation with rapid ventricular response Opioid dependence Paroxysmal atrial fibrillation with RVR Patient successfully converted to sinus rhythm overnight. Feels much better this morning. Would continue with PO diltiazem CD 120mg daily. No need for anticoagulation given CHADSVASc 0. Ok with aspirin 81mg daily. May be discharged today.??Will arrange outpatient followup. ?Thank you for allowing us to participate in the care of this patient. ? Doroteo Zavala MD Interventional Cardiology - [facility] [id number] ?? Disclaimer: This dictation was accomplished with use of [employer] voice recognition software, prone tomedical word misidentifications and grammatical errors. The physician does strive to identify and correct these, but some could still be present. Please do not hesitate to contact physician for clarifications. Total Time Spent I personally spent a total of??20 minutes, including both jual-cn-ayxy and slu-nlng-yl-face time onthe date of the encounter, addressing the above diagnoses. Problem List/Past Medical History Ongoing Atrial fibrillation Atrial fibrillation Atrial fibrillation Historical No qualifying data Procedure/Surgical History No qualifying data available. Hospital Medications Medications (6) Active SCHEDULED: (6) Aspirin 81 mg EC Tablet (Aspirin Tablet) ??81 mg, By Mouth, Daily Buprenorphine 8 mg Tablet (Buprenorphine Tablet) ??8 mg, Sublingual, 2 times a day Diltiazem 120 mg/24 hour CD Capsule (Cardizem CD 120 mg/24 hours oral capsule, extended release) ??120 mg, By Mouth, Daily Enoxaparin 40 mg Inj (Enoxaparin Inj) ??40 mg 0.4 mL, Subcutaneous Injection, Daily Nicotine 21 mg / 24 hour Patch (Nicotine Topical) ??21 mg, Topically, Daily Remove Patch (Remove ??Patch) ??1 each, Topically, Daily CONTINUOUS: (0) PRN: (0) Follow-Up Appointments Added Follow Up ?Time Frame ?Comments Doroteo Zavala?Cardiology office will call you to setup a follow up appointment Lilly Andrea?1 to 2 weeks Lab Results Cardiology Labs WBC: 5.6 k/mm3 (04/02/22) RBC: 4.78 m/mm3 (04/02/22) Hgb: 14.8 Gm/dL (04/02/22) Hct: 46.3 % (04/02/22) MCV:??96.9 femtoliters??High (04/02/22) MCH: 31 pg (04/02/22) MCHC:??32 g/dL??Low (04/02/22) Platelet Count: 356 k/mm3 (04/02/22) RDW-SD:??47.6 femtoliters??High (04/02/22) Nucleated RBC (Automated): 0 #/100 WBC'S (04/02/22) Abs. Neut: 3.3 k/mm3 (04/02/22) Abs. Lymph: 1.6 k/mm3 (04/02/22) Abs. Assumption: 0.5 k/mm3 (04/02/22) Abs. Eo: 0.1 k/mm3 (04/02/22) Abs. Baso: 0 k/mm3 (04/02/22) Neut %: 59.1 % (04/02/22) Assumption %: 9.6 % (04/02/22) Eos %: 2.5 % (04/02/22) Baso %: 0.4 % (04/02/22) Imm Gran: 0.4 % (04/02/22) Abs. Imm Gran: 0 k/mm3 (04/02/22) Sodium: 142 mmol/L (04/02/22) Potassium: 4.9 mmol/L (04/02/22) Chloride:??108 mmol/L??High (04/02/22) Bicarbonate Level: 27 mmol/L (04/02/22) Glucose Level:??121 mg/dL??High (04/01/22) Hemoglobin A1C (Monitoring): 5.4 % (04/01/22) BUN: 16 mg/dL (04/02/22) Creatinine-Blood: 1.2 mg/dL (04/02/22) Calcium: 8.7 mg/dL (04/02/22) Albumin: 4 Gm/dL (04/02/22) Alkaline Phosphatase: 85 units/L (04/02/22) AST (SGOT): 27 units/L (04/02/22) ALT (SGPT):??42 units/L??High (04/02/22) Bilirubin, Total: 0.3 mg/dL (04/02/22) Troponin T Quant: <0.01 (09/07/21) Nt-Probnp:??131 pg/mL??High (04/01/22) Cholesterol:??207 mg/dL??High (04/02/22) Triglycerides: 129 mg/dL (04/02/22) HDL Cholesterol: 50 mg/dL (04/02/22) LDL Cholesterol:??131 mg/dL??High (04/02/22) Non HDL Cholesterol: 157 mg/dL (04/02/22) TSH: 1 uIU/mL (04/01/22) Diagnostic Impression ECG ECG 12-Lead * Preliminary * ?? 09:20:33 Ventricular Rate: 143 BPM QRS Duration: 94 ms Q-T Interval: 300 ms QTC Calculation(Bazett): 463 ms R Dale: 37 degrees T Dale: 50 degrees Atrial fibrillation with rapid ventricular response Abnormal ECG When compared with ECG of 07-SEP-2021 19:41, Atrial fibrillation has replaced Sinus rhythm Vent. rate has increased BY 78 BPM ?? [place]: , Echo Echocardiogram - Complete ?? 09:40:56 Summary The left ventricle is normal in size, wall thickness and systolic function. The ejection fraction is 55-65%. No regional wall motion abnormalities seen. Normal diastolic function. The left atrium is normal in size. The right ventricle is normal in size and function. No significant valve disease. ?? Comparison No prior study available for comparison. ?? Signature ?? Signed By: Adriana RENEE, Trevor Wheeler Note * Fercho Love MD: PERFORM Event Display: Discharge/Transfer Note Hospital Authored Date: [id number] Patient: ??TASNEEM QUIROGA ? Age:??51 Years?Sex:??Male?:??1970?? Patient Information Discharge Location: [facility] Primary Care Physician: Lilly Andrea NP Admit Date/Time: 04/01/22 12:49 Discharge Disposition Discharge Disposition: Home: No Services Discharge Diagnosis Paroxysmal atrial fibrillation with RVR (I48.0) Opioid dependence (F11.20) _ Discharge Medications Aspirin (aspirin 81 mg oral delayed release tablet)?81?Milligram?1?tablet?By Mouth?Daily?for 30?Days Buprenorphine-Naloxone (Suboxone 8 mg-2 mg sublingual film)?1?Film?Sublingual?2 times aday?dissolve under the tongue Diltiazem (Cardizem CD 120 mg/24 hours oral capsule, extended release)?120?Milligram?1?capsule?By Mouth?Daily?for 30?Days ? Medications Started ASA, Cardizem Medications Discontinued none Doses Changed none Allergies Allergies ?(Active and Proposed Allergies Only) NKA? (Severity: Unknown severity, Onset: Unknown) ? Hospital Course 51??y/o??male with PMH of A.fibrillation, alcohol use, drug use now on Suboxone presenting with palpitations and dizziness and found to be in A-fib with RVR. ?? 1. Paroxysmal A. Fibrillation with RVR: patient presented with??recurrent episode of Rapid Afib. This was thought to be from??medication non compliance. He was started on Cardizem drip, and then??restarted on home dose of Cardizem PO. Cardiology was consulted, which agreed to continue with Cardizemand if no improvement considered for electric cardioversion. Risk Factors, alcohol use and possiblyundiagnosed sleep apnea; no signs of infections, no signs of ACS. However patient converted back tosinus rhythm, and remained stable. He has low CHADs score, and cardiology recommended only ASA. He will continue with Cardizem; stopped taking because feeling different; but he was also not compliantto metoprolol previously.?? plan: continued with Cardizem CD 120 mg daily, and ASA 81 mg daily. He will follow up with cardiology as outpatient.? Patient was stable for discharge home ? Objective Assessment and Plan Discharge Planning:? Vital Signs?? Temperature: 98.6 DegF (04/02/22 00:08:00) Temperature Route: Oral (04/02/22 00:08:00) Pulse Rate: 70 bpm (04/02/22 08:43:00) Respiratory Rate:??10 br/min??Low (04/02/22 05:10:00) Systolic Blood Pressure: 113 mm Hg (04/02/22 08:43:00) Diastolic Blood Pressure: 82 mm Hg (04/02/22 08:43:00) Blood pressure sites: Arm, right (04/02/22 05:10:00) Mean Arterial Pressure: 89 mm Hg (04/01/22 18:34:00) Pulse Pressure: 22 mm Hg (04/02/22 05:10:00) Oxygen Saturation: 97 % (04/02/22 05:10:00) Mode of Delivery (Oxygen): Room air (04/02/22 05:10:00) Early Warning Score: 0 (04/02/22 08:44:40) ? . Physical Exam Constitutional: Alert, in no acute distress. Mental Status: Oriented to person, place and time. Head: Normocephalic. Respiratory: Clear to auscultation bilaterally. No wheezing, rales or rhonchi. Cardiovascular: S1 S2 regular. No murmurs, rubs or gallops. Regular rate and rhythm Gastrointestinal: Abdomen soft, non-tender, non-distended. Normal bowel sounds. Neurologic:??Moves all extremities spontaneously. Skin: No rashes or lesions. No jaundice Musculoskeletal: No cyanosis or clubbing. No gross deformities. No pitting edema on Right or Left LE ?? Consultants Cardiology Pending Results Add On Lab Order ordered on 04/01/2022 Follow-Up Appointments Added Follow Up ?Time Frame ?Comments Doroteo Zavala?Cardiology office will call you to setup a follow up appointment Lilly Andrea?1 to 2 weeks Post Discharge Care Code Status: ?? Full Resuscitation Discharge ?04/02/22 9:46:00 EST Discharge Prescriptions ?ePrescribed, ??04/02/22 9:46:00 EST Results Discharge Labs BLOOD COUNT & DIFF WBC 5.6 k/mm3 ()?? 04/02/2022 05:55 RBC 4.78 m/mm3 ()?? 04/02/2022 05:55 Hgb 14.8 Gm/dL ()?? 04/02/2022 05:55 Hct 46.3 % ()?? 04/02/2022 05:55 MCV 96.9 femtoliters (High)?? 04/02/2022 05:55 MCH 31.0 pg ()?? 04/02/2022 05:55 MCHC 32.0 g/dL (Low)?? 04/02/2022 05:55 Platelet Count 356 k/mm3 ()?? 04/02/2022 05:55 RDW-SD 47.6 femtoliters (High)?? 04/02/2022 05:55 MPV 9.6 femtoliters ()?? 04/02/2022 05:55 Nucleated RBC (Automated) 0.0 #/100 WBC'S ()?? 04/02/2022 05:55 Abs. NRBC 0.0 k/mm3 ()?? 04/02/2022 05:55 Abs. Neut 3.3 k/mm3 ()?? 04/02/2022 05:55 Abs. Lymph 1.6 k/mm3 ()?? 04/02/2022 05:55 Abs. Assumption 0.5 k/mm3 ()?? 04/02/2022 05:55 Abs. Eo 0.1 k/mm3 ()?? 04/02/2022 05:55 Abs. Baso 0.0 k/mm3 ()?? 04/02/2022 05:55 Neut % 59.1 % ()?? 04/02/2022 05:55 Lymph % 28.0 % ()?? 04/02/2022 05:55 Assumption % 9.6 % ()?? 04/02/2022 05:55 Eos % 2.5 % ()?? 04/02/2022 05:55 Baso % 0.4 % ()?? 04/02/2022 05:55 Imm Gran 0.4 % ()?? 04/02/2022 05:55 Abs. Imm Gran 0.0 k/mm3 ()?? 04/02/2022 05:55 ?? CARDIAC Nt-Probnp 131 pg/mL (High)?? 04/01/2022 10:15 High Sensitivity Troponin (HSTnT) 34 ng/L (High)?? 04/01/2022 12:13 ?? CHEM GENERAL Sodium 142 mmol/L ()?? 04/02/2022 05:55 Potassium 4.9 mmol/L ()?? 04/02/2022 05:55 Chloride 108 mmol/L (High)?? 04/02/2022 05:55 Bicarbonate Level 27 mmol/L ()?? 04/02/2022 05:55 Anion Gap 7 ()?? 04/02/2022 05:55 Glucose Level 121 mg/dL (High)?? 04/01/2022 10:15 Hemoglobin A1C (Monitoring) 5.4 % ()?? 04/01/2022 10:15 BUN 16 mg/dL ()?? 04/02/2022 05:55 Creatinine-Blood 1.2 mg/dL ()?? 04/02/2022 05:55 Estimated GFR Creatinine 73 ML/MIN/1.73 M2 ()?? 04/02/2022 05:55 Calcium 8.7 mg/dL ()?? 04/02/2022 05:55 Phosphorus 3.5 mg/dL ()?? 04/02/2022 05:55 Magnesium 2.3 mg/dL ()?? 04/02/2022 05:55 Albumin 4.0 Gm/dL ()?? 04/02/2022 05:55 Alkaline Phosphatase 85 units/L ()?? 04/02/2022 05:55 AST (SGOT) 27 units/L ()?? 04/02/2022 05:55 ALT (SGPT) 42 units/L (High)?? 04/02/2022 05:55 Bilirubin, Total 0.3 mg/dL ()?? 04/02/2022 05:55 ?? ENDOCRINE/TUMOR MARKER TSH 1.00 uIU/mL ()?? 04/01/2022 10:15 ? LIPID STUDIES Cholesterol 207 mg/dL (High)?? 04/02/2022 05:55 Triglycerides 129 mg/dL ()?? 04/02/2022 05:55 HDL Cholesterol 50 mg/dL ()?? 04/02/2022 05:55 LDL Cholesterol 131 mg/dL (High)?? 04/02/2022 05:55 Non HDL Cholesterol 157 mg/dL ()?? 04/02/2022 05:55 ? VIROLOGY COVID-19 PCR Specimen Source NASAL ()?? 04/01/2022 13:06 COVID-19 PCR Result NEGATIVE ()?? 04/01/2022 13:06 ? Imaging(s) ?Chest 2 Views Frontal and Lat ?? 04/01/2022 11:05??by Dexter Domínguez MD ? IMPRESSION: ?? No acute cardiopulmonary process. ? 23??minutes spent on discharge * Fercho Love MD: SIGN, PERFORM, SIGN, VERIFY Event Display: Patient Education Handout Authored Date: * BHSP[facility]erscribe , CIS S: TRANSCRIBE Dexter Domínguez MD: VERIFY Adrian Murillo MD: SIGN Event Display: Result: Authored Date: Chest 2 Views Frontal and Lat HX OF PRESENT ILLNESS: Rapid Afib COMPARISON: 09/07/2021 FINDINGS: LINES AND TUBES: None. LUNGS AND PLEURA: Clear lungs. Normal pulmonary vascularity. No pleural effusion. No pneumothorax. HEART, MEDIASTINUM AND CATE: Heart is normal in size. Normal mediastinal and hilar contour. BONES AND SOFT TISSUES: No acute abnormality. IMPRESSION: No acute cardiopulmonary process. I have personally reviewed the images and I agree with this report. WSN: [id number] Ordering Physician: Dallin Whitney Dictated By: Adrian Murillo MD Dictated Date/Time: 04/01/22 11:12 a Reviewed By: Dexter Domínguez MD Signed By: Dexter Domínguez MD Signed Date/Time: 04/01/22 11:17 am Transcribed By: ARON Transcribed Date/Time: 04/01/22 11:06 am Patient Care team information Care Team Personnel Name: Ana CROWELL, Nuvia Chavira Position: S RN Member Role: Primary Care Nurse Name: Lilly Andrea NP Position: Reference Physician Member Role: PCP Address: Address: [address] [place] [address] Name: Mindi PAYTON Attending Position: [facility] ED Medicine Name: Kathie Rueda RN Position: S ED RN W/OE and Tasks Member Role: Patient Care Provider Care Team Related Persons Name: ABRAHAM NARVAEZ Address: [place] [address]
--- OUTSIDE RECORDS SUMMARY | 2023-06-10 18:24 | XMS_ITS | Continuity of Care Document ---
Author Name Unknown Organization [facility] ter Address [address] [place] [id number]- Care Team Providers Care Psychiatric Attendant Name Role Phone Pepe Dias Primary Care Physician Encounter [facility] ACCT [id number] Date(s): 03/09/23 - 03/09/[address] [address]- Discharge Disposition: A-D/C Walkout Attending Physician: Not [...] 02/02/23 9:04:00 EST, Route to Pharmacy Electronically, [facility], Partial fill upon patient request if... Start Date: 02/02/23 Stop Date: 03/04/23 Status: Ordered hydrOXYzine pamoate 50 mg oral capsule 1 capsule = 50 mg, By Mouth, 4 times a day, TAKE 1 CAPSULE BY MOUTH UP TO FOUR TIMES DAILY NEEDED FOR MILD TO MODERATE ANXIETY, # 60 capsule, 0 Refills, Maintenance, 02/02/23 9:04:00 EST, Capsule,[facility], Partial fill upon patient... [...] 02/02/23 9:10:00 EST, Route to Pharmacy Electronically, [facility], Partial fill upon patient request if [...] Confirmed Active Paroxysmal atrial fibrillation Confirmed Active Vital Signs Most recent to oldest [Reference Range]: 1 2 3 Height 180 cm (03/09/23 7:18 PM) 180 cm (03/09/23 6:33 PM) 180 cm (03/09/23 3:20 PM) Weight 82 kg (03/09/23 7:18 PM) Oxygen Saturation [94-100 %] 94 % (03/09/23 6:33 PM) 97 % (03/09/23 3:20 PM) 99 % (03/09/23 3:15 PM) Pulse Rate [55-90 bpm] 77 bpm (03/09/23 6:33 PM) 72 bpm (03/09/23 3:20 PM) 86 bpm (03/09/23 3:15 PM) Blood Pressure [90-138/55-84 mm Hg] 112/76mm Hg (03/09/23 6:33 PM) 137/88mm Hg (03/09/23 3:20 PM) Respiratory Rate [16-30 br/min] 19 br/min (03/09/23 6:33 PM) 18 br/min (03/09/23 3:20 PM) Temperature [96.8-100.4 DegF] 97.9 DegF (03/09/23 6:33 PM) 98.3 DegF (03/09/23 3:20 PM) Mode of Delivery (Oxygen) Room air (03/09/23 6:33 PM) Room air (03/09/23 3:20 PM) Room air (03/09/23 3:15 PM) Blood pressure sites Arm, left (03/09/23 6:33 PM) Arm, left (03/09/23 3:20 PM) Temperature Route Oral (03/09/23 6:33 PM) Oral (03/09/23 3:20 PM) Dry Weight 82 kg (03/09/23 7:18 PM) 82 kg (03/09/23 3:20 PM) Dry Weight Obtained Via Patient/family s tated (03/09/23 3:20 PM) Social History Social History Type Response Smoking Status 10 or more cigarette s (1/2 pack or more)/day in last 30 days entered on: 05/07/22 Sex EKG study * Event Display: EKG Authored Date: Patient Care team information Care Team Personnel Name: Nuvia Perez RN Position: S RN Member Role: Primary Care Nurse Name: John Joaquin RN Position: S RN Member Role: Primary Care Nurse Name: Dilcia Hartmann Position: S RN Member Role: Primary Care Nurse Name: Kavita Laguna RN Position: S RN Member Role: Primary Care Nurse Name: Pepe Dias Position: [facility] Outreach Member Role: PCP Address: Address: [address] [place] [address] Name: Bhupendra Gonzalez RN Position: [facility] RN Member Role: Primary Care Nurse Name: Yenny Vergara Position: S RN Member Role: Primary Care Nurse Care Team Related Persons Name: ABRAHAM NARVAEZ Address: home [address] [place] [address]
--- OUTSIDE RECORDS SUMMARY | 2023-06-10 18:24 | XMS_ITS | Continuity of Care Document ---
Author Name Unknown Organization [facility] ter Address [address] [place] [id number]- Care Team Providers Care Recovery Unit Operator Name Role Phone Lilly Andrea NP Primary Care Physician [phone] Encounter [facility] Date(s): 12/10/22 - 12/10/[address] [address]- Encounter Diagnosis Abdominal pain(Final) - 12/10/22 Chest pain(Final) - 12/10/22 Discharge Disposition: A-D/C Home Attending Physician: Rosetta Ray DO Admitting Physician: Rosetta Ray DO Referring Physician: Not on Staff, Referring MD [...] opioid drug. Start Date: 11/20/22 Status: Ordered Metoprolol Tartrate 25 mg oral tablet 1 tablet = 25 mg, By Mouth, 2 times a day, # 60 tablet, 0 Refills, Maintenance, 11/19/22 20:10:00 EDT, Tablet, Partial fill upon patient request if the prescription is for a schedule II opioid drug. Start Date: 11/19/22 Status: Ordered omeprazole 20 mg oral enteric [...] Informant GERD (gastroesophageal reflux disease) Confirmed Active History of alcohol use disorder Confirmed Active Opiate dependence Confirmed Active Paroxysmal atrial fibrillation Confirmed Active Results Radiology Reports * Exam Date Time Procedure Performing Provider Status 12/10/22 3:27 PM Chest 2 Views Frontal and Lat MosheDayan vera; Auth (Verified) Notes: (Chest 2 Views Frontal and Lat) Reason For Exam: Chest Pain;Other: RESULT: Chest 2 Views Frontal and Lat Chest 2 Views Frontal and Lat Hx of Present Illness: Chest pain. COMPARISON: 12/09/2022 FINDINGS: LINES AND TUBES: None. LUNGS AND PLEURA: Clear lungs. Normal pulmonary vascularity. No pleural effusion. No pneumothorax. HEART, MEDIASTINUM AND CATE: Heart is normal in size. Normal mediastinal and hilar contour. BONES AND SOFT TISSUES: No acute abnormality. IMPRESSION: No acute abnormality. WSN: [id number] Ordering Physician: Sheila Xiong Dictated By: Chandler Khan MD Dictated Date/Time: 12/10/22 3:32 pm Reviewed By: Chandler Khan MD Signed By: Chandler Khan MD Signed Date/Time: 12/10/22 3:32 pm Transcribed By: ARON Transcribed Date/Time: 12/10/22 3:31 pm Vital Signs Most recent to oldest [Reference Range]: 1 2 3 Height 181 cm (12/10/22 7:39 PM) 181 cm (12/10/22 1:43 PM) 181 cm (12/10/22 1:29 PM) Weight 82 kg (12/10/22 7:39 PM) 82 kg (12/10/22 1:43 PM) 82 kg (12/10/22 1:29 PM) Oxygen Saturation [94-100 %] 98 % (12/10/22 1:43 PM) 99 % (12/10/22 1:29 PM) 99 % (12/10/22 12:46 PM) Pulse Rate [55-90 bpm] 79 bpm (12/10/22 1:43 PM) 82 bpm (12/10/22 1:29 PM) 93 bpm *H* (12/10/22 12:46 PM) Body Mass Index [18.5-24.99 kg/m2] 25.03 kg/m2 *H* (12/10/22 1:29 PM) 25.03 kg/m2 *H* (12/10/22 12:46 PM) Blood Pressure [90-138/55-84 mm Hg] 137/102mm Hg (12/10/22 1:43 PM) 139/100mm Hg *H* (12/10/22 1:29 PM) 147/97mm Hg *H* (12/10/22 12:46 PM) Respiratory Rate [16-30 br/min] 22 br/min (12/10/22 1:43 PM) 22 br/min (12/10/22 1:29 PM) 18 br/min (12/10/22 12:46 PM) Temperature [96.8-100.4 DegF] 98.3 DegF (12/10/22 12:46 PM) Mode of Delivery (Oxygen) Room air (12/10/22 1:43 PM) Room air (12/10/22 1:29 PM) Room air (12/10/22 12:46 PM) Blood pressure sites Arm, right (12/10/22 1:43 PM) Arm, right (12/10/22 1:29 PM) Arm, right (12/10/22 12:46 PM) Temperature Route Oral (12/10/22 12:46 PM) Dry Weight 82 kg (12/10/22 7:39 PM) 82 kg (12/10/22 1:43 PM) 82 kg (12/10/22 1:29 PM) Weight Obtained Via Patient/family state d (12/10/22 12:46 PM) Dry Weight Obtained Via Patient/family s tated (12/10/22 12:46 PM) Social History Social History Type Response Smoking Status 10 or more cigarette s (1/2 pack or more)/day in last 30 days entered on: 05/07/22 Sex EKG study * Event Display: ECG 12-Lead Authored Date: Please click on pdf link to open report * Event Display: ECG 12-Lead Authored Date: Ventricular Rate: 86 BPM Atrial Rate: 86 BPM P-R Interval: 132 ms QRS Duration: 94 ms Q-T Interval: 372 ms QTC Calculation(Bazett): 445 ms P [place]: 69 degrees R [place]: 56 degrees T [place]: 69 degrees Normal sinus rhythm Normal ECG When compared with ECG of 08-DEC-2022 16:57, No significant change was found Confirmed by DEBORAH AMATO MD ([id number]) on 12/10/2022 1:27:43 PM [place]: DEBORAH AMATO MD Note * Parul Huitron MD: PERFORM Event Display: Patient Education Leaflets Authored Date: [id number] Unknown Causes of Abdominal Pain(Adult) ?? [id number] Unknown Causes of Abdominal Pain(Adult) The exact cause of your belly (abdominal) pain is not clear. Your exam and tests don't suggest a dangerous cause at this time. This does not mean that this is something to worry about. Everyone likesto know the exact cause of the problem. But sometimes with belly pain, there is no clear-cut cause,and this could be a good thing. Your symptoms can be treated, and you should feel better.?? Your condition does not seem serious now. But sometimes the signs of a serious problem may take more time to appear. For this reason,??it's important for you to watch for any new symptoms, problems,??or worsening of your condition. Over the next few days, the abdominal pain may come and go. Or it may be constant. Other common symptoms can include nausea and vomiting. Sometimes it can be difficult to tell if you feel nauseous. You may just feel bad and not connect that feeling to nausea. Constipation, diarrhea, and a fever maygo along with the pain. The pain may continue even if treated correctly over the following days. Depending on how things go, sometimes the cause can become clear and you may need more??or different treatment. You may also need other evaluations, medicines, or tests. Home care Your healthcare provider may prescribe medicine for pain, symptoms, or an infection. ??Follow the healthcare provider's instructions for taking these medicines. General care ??? Rest as much as you can until your next exam. No strenuous activities. ??? Try to not do anything that may have caused your symptoms. This might be not taking any medicines unless otherwise directed by your healthcare provider. It might be not eating certain foods or doing certain activities. ??? Find positions that ease discomfort. A small pillow placed on your belly may help relieve pain. ??? Something warm on your belly such as a heating pad may help, but be careful not to burn yourself. Diet ??? Don???t??force yourself to eat, especially if having cramps, vomiting, or diarrhea. ??? Water is important so you don't get dehydrated. Soup may also be good. Sports drinks may also help, especially if they are not too acidic. Don't drink sugary drinks as this can make things worse. Take liquids in small amounts. Don???t??guzzle them. ??? Caffeine sometimes makes the pain and cramping worse. ??? Don???t take??dairy products if you have vomiting or diarrhea. ??? Don't eat large amounts at a time. Eat several small meals during the day instead of 2 or 3 larger meals. Wait a few minutesbetween bites. ??? Eat a diet low in fiber (called a low-residue diet). Foods allowed include refined breads, white rice, fruit and vegetable juices without pulp, tender meats. These foods will pass more easily through the intestine. ??? Don???t have??whole-grain foods, whole fruits and vegetables,meats, seeds and nuts, fried or fatty foods, dairy, alcohol and spicy foods until your symptoms go away. ?? Follow-up care Follow up with your healthcare provider, or as advised, if your pain does not begin to improve in the next 24 hours. ?? Call 911 Call?? 911 if any of these occur: ??? Trouble breathing ??? Confusion ??? Fainting or loss of consciousness ??? Rapid heart rate ??? Seizure ?? When to seek medical advice Call your healthcare provider right away if any of these occur: ??? Pain gets worse or moves to theright lower abdomen ??? New or worsening vomiting or diarrhea ??? Swelling of the abdomen ??? Unable to pass stool for more than??3 days ??? Fever of 100.4??F (38??C) or higher, or as directed by your healthcare provider ??? Blood in vomit or bowel movements (dark red or black color) ??? Yellow color of eyes and skin (jaundice) ??? Weakness, dizziness ??? Chest, arm, back, neck, or jaw pain ??? Can't keep down medicines, liquids, or water because of too much vomiting ??? If you have a vagina: unexpected vaginal bleeding or missed period ?? Last Reviewed Date: 2021 ?? 2662-[address] [employer]. All rights reserved. This information is not intended as a substitute for professional medical care. Always follow your healthcare professional's instructions. ?? Patient Care team information Care Team Personnel Name: Nuvia Perez RN Position: [facility] RN Member Role: Primary Care Nurse Name: Dilcia Hartmann Position: [facility] RN Member Role: Primary Care Nurse Name: Kavita Laguna RN Position: [facility] RN Member Role: Primary Care Nurse Name: Lilly Andrea NP Position: Reference Physician Member Role: PCP Address: Address: [address] [place] [id number] Name: Yenny Vergara Position: [facility] RN Member Role: Primary Care Nurse Name: Rosetta Ray DO Position: [facility] ED Medicine MD Member Role: Admitting Physician Address: Address: [address] [place] [address]- Name: Parul Huitron MD Position: [facility] Resident Member Role: ED Resident Address: Address: [address] [place] [address]- Name: Shelia Dow RN Position: [facility] ED RN W/OE and Tasks Member Role: Patient Care Provider Name: Mirta Morgan RN Position: [facility] ED RN W/OE and Tasks Member Role: Patient Care Provider Care Team Related Persons Name: ABRAHAM NARVAEZ Address: home [address] [place] [address]
--- OUTSIDE RECORDS SUMMARY | 2023-06-10 18:24 | XMS_ITS | Continuity of Care Document ---
Author Name Unknown Organization [facility] ter Address [address] [place] [address]- Care Team Providers Care Satellite Installation Technician Name Role Phone Pepe Dias Primary Care Physician Encounter [facility] Date(s): 11/30/22 - 11/30/[address] [address]- Encounter Diagnosis Chest pain(Final) - 11/30/22 Discharge Disposition: A-D/C Home Attending Physician: Laz Brooks DO Admitting Physician: Laz Brooks DO Referring Physician: Not on Staff, Referring MD Allergies, Adverse Reactions, Alerts No Known Allergies Medications acetaminophen 325 mg oral tablet 650 [...] Exam Date Time Procedure Performing Provider Status 11/30/22 8:02 PM Chest 2 Views Frontal and Lat Bry Nicole; Wale (Verified) Notes: (Chest 2 Views Frontal and Lat) Reason For Exam: Chest Pain;Other: RESULT: Chest 2 Views Frontal and Lat Chest 2 Views Frontal and Lat Hx of Present Illness: Pt reporting intermitting L chest pain tightness with palpitations, denies pain at this time. has heart monitor in place for 30day monitoring; Reason: Other:; Chest Pain; Clinical Question(s): Other: COMPARISON: 11/19/2022 FINDINGS: LINES AND TUBES: None. LUNGS AND PLEURA: Clear lungs. Normal pulmonary vascularity. No pleural effusion. No pneumothorax. HEART, MEDIASTINUM AND CATE: Heart is normal in size. Normal mediastinal and hilar contour. BONES AND SOFT TISSUES: No acute abnormality. IMPRESSION: No acute abnormality. WSN: [id number] Ordering Physician: Mirna Voss Dictated By: Nathaniel Lanier MD Dictated Date/Time: 11/30/22 8:24 pm Reviewed By: Nathaniel Lanier MD Signed By: Nathaniel Lanier MD Signed Date/Time: 11/30/22 8:24 pm Transcribed By: ARON Transcribed Date/Time: 11/30/22 8:23 pm Vital Signs Most recent to oldest [Reference Range]: 1 2 3 Height 180 cm (11/30/22 7:32 PM) 180 cm (11/30/22 6:46 PM) Oxygen Saturation [94-100 %] 98 % (11/30/22 9:10 PM) 94 % (11/30/22 6:46 PM) 98 % (11/30/22 6:27 PM) Pulse Rate [55-90 bpm] 63 bpm (11/30/22 9:10 PM) 65 bpm (11/30/22 6:46 PM) 84 bpm (11/30/22 6:27 PM) Blood Pressure [90-138/55-84 mm Hg] 114/80mm Hg (11/30/22 9:10 PM) 124/97mm Hg (11/30/22 6:46 PM) Respiratory Rate [16-30 br/min] 18 br/min (11/30/22 6:46 PM) Temperature [96.8-100.4 DegF] 98.2 DegF (11/30/22 9:10 PM) 98.3 DegF (11/30/22 6:46 PM) Mode of Delivery (Oxygen) Room air (11/30/22 9:10 PM) Room air (11/30/22 6:46 PM) Blood pressure sites Arm, left (11/30/22 9:10 PM) Arm, left (11/30/22 6:46 PM) Temperature Route Oral (11/30/22 9:10 PM) Oral (11/30/22 6:46 PM) Dry Weight 83 kg (11/30/22 7:32 PM) 83 kg (11/30/22 6:46 PM) Dry Weight Obtained Via Patient/family s tated (11/30/22 6:46 PM) Social History Social History Type Response Smoking Status 10 or more cigarette s (1/2 pack or more)/day in last 30 days entered on: 05/07/22 Sex Patient Care team information Care Team Personnel Name: Nuvia Perez RN Position: [facility] RN Member Role: Primary Care Nurse Name: Dilcia Hartmann Position: S RN Member Role: Primary Care Nurse Name: Kavita Laguna RN Position: [facility] RN Member Role: Primary Care Nurse Name: Pepe Dias Position: [facility] Outreach Member Role: PCP Address: Address: [address] [place] [address] Name: Laz Brooks DO Position: [facility] Resident Member Role: Admitting Physician Address: Address: [address] [place] [address] [place] [address]- Care Team Related Persons Name: ABRAHAM NARVAEZ Address: home [address] [place] [address]
--- OUTSIDE RECORDS SUMMARY | 2023-06-10 18:24 | XMS_ITS | Continuity of Care Document ---
Author Name Unknown Organization [facility] ter Address [address] [place] [address]- Care Team Providers Care Health Informatics Specialist Name Role Phone Pepe Dias Primary Care Physician Encounter [facility] ACCT R [id number] Date(s): 12/30/22 - 12/30/[address] [address]- Discharge Disposition: A-D/C Walkout Attending Physician: Not [...] recent to oldest [Reference Range]: 1 2 Height 180 cm (12/30/22 12:41 PM) 180 cm (12/30/22 12:30 PM) Oxygen Saturation [94-100 %] 98 % (12/30/22 3:15 PM) 95 % (12/30/22 12:30 PM) Pulse Rate [55-90 bpm] 68 bpm (12/30/22 3:15 PM) 73 bpm (12/30/22 12:30 PM) Blood Pressure [90-138/55-84 mm Hg] 144/ 94mm Hg *H* (12/30/22 3:15 PM) 127/97mm Hg (12/30/22 12:30 PM) Respiratory Rate [16-30 br/min] 18 br/mi n (12/30/22 3:15 PM) 18 br/min (12/30/22 12:30 PM) Temperature [96.8-100.4 DegF] 98.4 DegF (12/30/22 3:15 PM) 98.4 DegF (12/30/22 12:30 PM) Mode of Delivery (Oxygen) Room air (12/30/22 3:15 PM) Room air (12/30/22 12:30 PM) Blood pressure sites Arm, right (12/30/22 3:15 PM) Arm, left (12/30/22 12:30 PM) Temperature Route Oral (12/30/22 3:15 PM) Oral (12/30/22 12:30 PM) Dry Weight 86.5 kg (12/30/22 12:41 PM) 86.5 kg (12/30/22 12:30 PM) Social History Social History Type Response Smoking Status 10 or more cigarette s (1/2 pack or more)/day in last 30 days entered on: 05/07/22 Sex EKG study * Event Display: ECG 12-Lead Authored Date: Please click on pdf link to open report * Event Display: ECG 12-Lead Authored Date: Ventricular Rate: 77 BPM Atrial Rate: 77 BPM P-R Interval: 156 ms QRS Duration: 94 ms Q-T Interval: 376 ms QTC Calculation(Bazett): 425 ms P [place]: 51 degrees R [place]: 5 degrees T [place]: 37 degrees Normal sinus rhythm Normal ECG When compared with ECG of 27-DEC-2022 14:27, No significant change was found Confirmed by XENIA CHAU ([id number]) on 12/30/2022 1:17:49 PM [place]: XENIA CHAU Patient Care team information Care Team Personnel Name: Nuvia Perez RN Position: S RN Member Role: Primary Care Nurse Name: Dilcia Hartmann Position: S RN Member Role: Primary Care Nurse Name: Kavita Laguna RN Position: S RN Member Role: Primary Care Nurse Name: Pepe Dias Position: S Outreach Member Role: PCP Address: Address: [address] [place] [address] Name: Yenny Vergara Position: S RN Member Role: Primary Care Nurse Care Team Related Persons Name: ABRAHAM NARVAEZ Address: home [address] [place] [address]
--- OUTSIDE RECORDS SUMMARY | 2023-06-10 18:24 | XMS_ITS | Continuity of Care Document ---
Author Name Unknown Organization [facility] ter Address [address] [place] [phone]- Care Team Providers Care Pole Cutter Name Role Phone Pepe Dias Primary Care Physician Encounter [facility] R [id number] Date(s): 12/22/22 - 12/22/[address] [address]- Discharge Disposition: A-D/C AMA Attending Physician: Bry Shrestha MD Admitting Physician: Bry Shrestha MD Referring Physician: Not on Staff, Referring [...] Range]: 1 2 3 Height 180 cm (12/22/22 2:26 PM) 180 cm (12/22/22 2: PM) 180 cm (12/22/22 2:18 PM) Oxygen Saturation [94-100 %] 94 % (12/22/22 2:18 PM) Pulse Rate [55-90 bpm] 70 bpm (12/22/22 2:18 PM) Blood Pressure [90-138/55-84 mm Hg] 126/84mm Hg (12/22/22 2:18 PM) Respiratory Rate [16-30 br/min] 18 br/min (12/22/22 2:18 PM) Temperature [96.8-100.4 DegF] 98.0 DegF (12/22/22 2:18 PM) Mode of Delivery (Oxygen) Room air (12/22/22 2:18 PM) Blood pressure sites Arm, left (12/22/22 2:18 PM) Temperature Route Oral (12/22/22 2:18 PM) Dry Weight 84 kg (12/22/22 2:26 PM) 84 kg (12/22/22 2:23 PM) 84 kg (12/22/22 2:18 PM) Dry Weight Obtained Via Patient/family s tated (12/22/22 2:18 PM) Social History Social History Type Response Smoking Status 10 or more cigarette s (1/2 pack or more)/day in last 30 days entered on: 05/07/22 Sex Patient Care team information Care Team Personnel Name: Ana CROWELL, Nuvia Chavira Position: [facility] RN Member Role: Primary Care Nurse Name: Dilcia Hartmann Position: [facility] RN Member Role: Primary Care Nurse Name: Kavita Laguna RN Position: [facility] RN Member Role: Primary Care Nurse Name: Pepe Dias Position: [facility] Outreach Member Role: PCP Address: Address: [address] [place] [address]- Name: Yenny Vergara Position: [facility] RN Member Role: Primary Care Nurse Name: Mariia Garcia Position: [facility] ED [facility] Name: Janine Lezama RN Position: [facility] ED RN W/OE and Tasks Member Role: Patient Care Provider Name: Kacie DRUG ENFORCEMENT ADMINISTRATION AGENTTasha Position: [facility] Associate Professional Member Role: ED Physician Electrophysiology Scientist Address: Address: [address] [place] [address] [place] [address]- Care Team Related Persons Name: ABRAHAM NARVAEZ Address: home [address] [place] [address]
--- OUTSIDE RECORDS SUMMARY | 2023-06-10 18:24 | XMS_ITS | Continuity of Care Document ---
Author Name Unknown Organization [facility] ter Address [address] [place] [address]- Care Team Providers Care Director Of Extension Work Name Role Phone Pepe Dias Primary Care Physician Encounter [facility] [place] [place] [facility] R [id number] Date(s): 07/03/22 - 07/03/[address] [address]- Discharge Disposition: A-D/C Home Attending Physician: Gayle Melgar MD Admitting Physician: Gayle Melgar MD Referring Physician: Not on Staff, Referring [...] 04/02/22 9:51:00 EST, Route to Pharmacy Electronically, [facility], Partial fill upon patient request if the prescription is for a schedule II opioid... Start Date: 04/02/22 Stop Date: 06/01/22 Status: Ordered Cardizem CD 120 mg/24 hours oral capsule, extended release 120 mg, 1, capsule, By Mouth, Daily, # 30 capsule, Refills 1, Tot. Refills 1, Maintenance, 239:51:00 EST, Route to Pharmacy Electronically, [facility], Partial fill upon patient request if the prescription is for a schedule II opi... Start Date: 04/02/22 Stop Date: 06/01/22 Status: Ordered famotidine 20 mg oral tablet 20 mg, 1, tablet, By Mouth, 2 times a day, # 180 tablet, Refills 0, Tot. Refills 0, Maintenance, 06/23/22 11:07:00 EDT, Route to Pharmacy Electronically, [id number], Partial fill upon patient request if the prescription is for a sched... Start Date: 06/23/22 Status: Ordered ondansetron 4 mg oral tablet, disintegrating 1 tablet = 4 mg, By Mouth, Every 6 hours, PRN as needed for nausea/vomiting, # 12 tablet, 0 Refills, Maintenance, 06/15/22 11:59:00 EDT, DIS Tablet, [id number], Partial fill upon patient request if the prescription is for a schedule I... Start Date: 06/15/22 Stop Date: 06/18/22 Status: Ordered Suboxone 8 mg-2 mg sublingual [...] Exam Date Time Procedure Performing Provider Status 07/03/22 2:51 PM US Doppler Ext Lower Venous Left Scottp son , Jigna; Auth (Verified) Notes: (US Doppler Ext Lower Venous Left) Reason For Exam: Pain in limb;Other: RESULT: US Doppler Ext Lower Venous Left US Doppler Ext Lower Venous Left Hx of Present Illness: Patient reports pain in left groin extending down left leg x 3 days. Patienthad cardiology appt 2 days ago and was told a script for Xarelto would be sent to pharmacy but no script was sent per patient. Pain increasing. 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 FINDINGS: Common femoral vein: Patent. No thrombosis. Femoral vein: Patent. No thrombosis. Popliteal vein: Patent. No thrombosis. Gastrocnemius veins: The visualized portions are patent without evidence of thrombosis. Peroneal veins: The visualized portions are patent without evidence of thrombosis. Posterior tibial veins: The visualized portions are patent without evidence of thrombosis. Contralateral common femoral vein: Patent. No thrombosis. OTHER FINDINGS: None IMPRESSION: No evidence of deep venous thrombosis. WSN: [id number] Ordering Physician: Paco Armstrong MD Dictated By: Leelee Bah MD Dictated Date/Time: 07/03/22 3:31 pm Reviewed By: Leelee Bah MD Signed By: Leelee Bah MD Signed Date/Time: 07/03/22 3:31 pm Transcribed By: ARON Transcribed Date/Time: 07/03/22 3:30 pm Vital Signs Most recent to oldest [Reference Range]: 1 2 3 Weight 91 kg (07/03/22 12:50 PM) Oxygen Saturation [94-100 %] 99 % (07/03/22 9:30 PM) 98 % (07/03/22 6:50 PM) 97 % (07/03/22 4:45 PM) Pulse Rate [55-90 bpm] 70 bpm (07/03/22 9:30 PM) 72 bpm (07/03/22 6:50 PM) 69 bpm (07/03/22 4:45 PM) Blood Pressure [90-138/55-84 mm Hg] 130/78mm Hg (07/03/22 9:30 PM) 134/88mm Hg (07/03/22 6:50 PM) 130/86mm Hg (07/03/22 4:45 PM) Respiratory Rate [16-30 br/min] 18 br/min (07/03/22 9:30 PM) 17 br/min (07/03/22 6:50 PM) 16 br/min (07/03/22 4:45 PM) Temperature [96.8-100.4 DegF] 98.3 DegF (07/03/22 4:45 PM) 98.1 DegF (07/03/22 3:04 PM) 98.1 DegF (07/03/22 12:50 PM) Mode of Delivery (Oxygen) Room air (07/03/22 9:30 PM) Room air (07/03/22 6:50 PM) Room air (07/03/22 4:45 PM) Blood pressure sites Arm, left (07/03/22 9:30 PM) Arm, left (07/03/22 6:50 PM) Arm, left (07/03/22 4:45 PM) Temperature Route Oral (07/03/22 4:45 PM) Oral (07/03/22 3:04 PM) Oral (07/03/22 12:50 PM) Dry Weight 91 kg (07/03/22 12:50 PM) Social History Social History Type Response Smoking Status 10 or more cigarette s (1/2 pack or more)/day in last 30 days entered on: 05/07/22 Sex Note * [facility] , CIS S: TRANSCRIBE Leelee Bah MD: VERIFY Event Display: Result: Authored Date: US Doppler Ext Lower Venous Left Hx of Present Illness: Patient reports pain in left groin extending down left leg x 3 days. [facility] and was told a script for Xarelto would be sent to pharmacy but no script was sent per patient. Pain increasing. 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 FINDINGS: Common femoral vein: Patent. No thrombosis. Femoral vein: Patent. No thrombosis. Popliteal vein: Patent. No thrombosis. Gastrocnemius veins: The visualized portions are patent without evidence of thrombosis. Peroneal veins: The visualized portions are patent without evidence of thrombosis. Posterior tibial veins: The visualized portions are patent without evidence of thrombosis. Contralateral common femoral vein: Patent. No thrombosis. OTHER FINDINGS: None IMPRESSION: No evidence of deep venous thrombosis. WSN: [id number] Ordering Physician: Paco Armstrong MD Dictated By: Leelee Bah MD Dictated Date/Time: 07/03/22 3:31 pm Reviewed By: Leelee Bah MD Signed By: Leelee Bah MD Signed Date/Time: 07/03/22 3:31 pm Transcribed By: ARON Transcribed Date/Time: 07/03/22 3:30 pm Patient Care team information Care Team Personnel Name: Nuvia Perez RN Position: [facility] RN Member Role: Primary Care Nurse Name: Pepe Dias Position: [facility] Outreach Member Role: PCP Address: Address: [address] [place] [id number] Name: Arabella Chan Position: [facility] ED TA [facility] Name: Gayle Melgar MD Position: [facility] Resident Member Role: Admitting Physician Address: Address: [address] [place] [address]- Name: Nicole Ford Position: [facility] ED RN W/OE and Tasks Member Role: Patient Care Provider Name: Caryn Beauchamp DO Position: [facility] Resident Member Role: ED Resident Address: Address: [address] [place] [address] Care Team Related Persons Name: ABRAHAM NARVAEZ Address: home [address] [place] [id number]
--- OUTSIDE RECORDS SUMMARY | 2023-06-10 18:24 | XMS_ITS | Continuity of Care Document ---
Author Name Unknown Organization [facility] ter Address [address] [place] [address]- Care Team Providers Care Medical Registrar Name Role Phone Pepe Dias Primary Care Physician Encounter [facility] [place] Date(s): 01/24/23 - 01/25/[address] [address]- Encounter Diagnosis Abdominal pain, LUQ(Final) - 01/25/23 Headache(Final) - 01/25/23 Discharge Disposition: A-D/C Home Attending Physician: Sirisha Doty MD Admitting Physician: Sirisha Doty MD Referring Physician: Not on Staff, Referring [...] opioid drug. Start Date: 11/20/22 Status: Ordered Dilaudid Inj 0.5 mg, Injection, IV Push Slowly, Once, STAT, 01/24/23 16:12:00 EST, Stop date 01/24/23 16:12:00 EST Start Date: 01/24/23 Stop Date: 01/24/23 Status: Completed Metoprolol Tartrate 25 mg oral tablet 1 [...] Exam Date Time Procedure Performing Provider Status 01/24/23 10:[address] Angio Abdomen and Pelvis Haris Fitzgerald (Verified) Notes: (CT Angio Abdomen and Pelvis) Reason For Exam: Pain RESULT: CT Angio Abdomen and Pelvis CT Angio Abdomen and Pelvis INDICATION: Hx of Present Illness: LUQ pain since apr . Worse last 3 days; Reason: Pain; Clinical Question(s): Other:; mesenteric ischemia; Order Comment: , Other: COMPARISON: 12/27/2022 and priors. TECHNIQUE: Axial images were obtained from diaphragm through the pelvis during the intravenous administration of iodinated contrast. 100 cc of Omnipaque 300 was administered intravenously. Delayed (venous) images were also acquired for evaluation of the portal veins. Sagittal and coronal maximum intensity projection (MIP) images were reconstructed and rendered in both arterial and venous phases. Weight-based protocol using automatic tube modulation was used to optimize exposure parameters. RADIATION DOSE PARAMETERS: CTDIvol Body: 19.98 mGy, DLP Body: 1707 mGy*cm. VASCULAR FINDINGS: Abdominal aorta: No aortic aneurysm or dissection. Mild atherosclerotic calcifications. Celiac axis: Patent. Superior mesenteric artery: Patent. Right renal artery: Patent. Left renal artery: Patent. Inferior mesenteric artery: Patent. Right common iliac artery: Patent. Right internal iliac artery: Patent. Right external iliac artery: Patent. Right common femoral artery: Patent. Visualized right superficial and deep femoral arteries: Patent. Left common iliac artery: Patent. Left internal iliac artery: Patent. Left external iliac artery: Patent. Left common femoral artery: Patent. Visualized left superficial and deep femoral arteries: Patent. IVC and hepatic veins: Patent. Portal vein: Patent. Splenic vein: Patent. Superior mesenteric vein: Patent. Inferior mesenteric vein: Patent. Iliac and femoral veins: Patent. NONVASCULAR FINDINGS: Cloth Desizing Range Tender View Findings, Lines and Tubes: None. Visualized Chest: Bilateral dependent atelectasis. No pleural effusion. The heart is normal in size. No pericardial effusion. Diaphragm: Normal. Liver: Normal. Gallbladder: No CT evidence of gallbladder pathology. Bile ducts: No biliary ductal dilation. Spleen: Normal. Accessory splenic tissue is incidentally noted. Pancreas: Normal. Adrenal glands: Normal. Kidneys and ureters: Unchanged partially duplicated, malrotated and ptotic right kidney. No hydronephrosis, stones, or suspicious masses. Bladder: Normal. Reproductive organs: Unremarkable. Stomach, small bowel, and large bowel: Mild wall thickening of some left-sided jejunal bowel loops (series 501:47). Mild colonic stool burden. Stomach is unremarkable. Appendix: Normal. Peritoneum and retroperitoneum: No ascites or pneumoperitoneum. No omental or mesenteric lesions. Lymph nodes: No enlarged lymph nodes. Abdominal and pelvic wall: Small fat-containing periumbilical hernia. Bones: No acute abnormality. IMPRESSION: No evidence of mesenteric vascular compromise. Mild wall thickening of some left-sided jejunal bowel loops may represent enteritis. I have personally reviewed the images and I agree with this report. WSN: [id number] Ordering Physician: Sara Ahmadi Dictated By: Adrian Murillo MD Dictated Date/Time: 01/24/23 11:19 p Reviewed By: Vernon Ling MD Signed By: Vernon Ling MD Signed Date/Time: 01/24/23 11:24 pm Transcribed By: ARON Transcribed Date/Time: 01/24/23 11:06 pm * Exam Date Time Procedure Performing Provider Status 01/24/23 10:[address] Head/Brain W/O Contrast Haris Isaacs; Auth (Verified) Notes: (CT Head/Brain W/O Contrast) Reason For Exam: Headache(s) RESULT: CT Head/Brain W/O Contrast CT Head/Brain W/O Contrast INDICATION: Hx of Present Illness: LUQ pain since feb . worse last 3 days; Reason: Headache(s); Clinical Question(s): Other:; ICH TECHNIQUE: Noncontrast head CT using axial technique and reconstructed in axial and coronal planes.Iterative reconstruction techniques are used to optimize dose and image quality. CTDIvol Head: 45.90 mGy, DLP Head: 772 mGy*cm. COMPARISON: None. FINDINGS: Cloth Desizing Range Tender view findings, lines and tubes: None. BRAIN AND EXTRA-AXIAL SPACES: No parenchymal hemorrhage, midline shift, or mass effect. Mclean-white matter differentiation is wellpreserved. No acute infarct. Ventricles, sulci, and basilar cisterns are normal. No white matter lesions. No subarachnoid hemorrhage. No subdural or epidural collection. CALVARIUM, SKULL BASE, AND SOFT TISSUES: No fractures or suspicious bony lesions. The paranasal sinuses and mastoid air cells are clear. Visualized orbits and globes are intact. The extracranial soft tissues are unremarkable. IMPRESSION: No acute intracranial pathology. WSN: [id number] Ordering Physician: Sirisha Doty Dictated By: Vernon Ling MD Dictated Date/Time: 01/24/23 10:31 p Reviewed By: Vernon Ling MD Signed By: Vernon Ling MD Signed Date/Time: 01/24/23 10:31 pm Transcribed By: ARON Transcribed Date/Time: 01/24/23 10:25 pm * Exam Date Time Procedure Performing Provider Status 01/24/23 5:14 PM Chest 2 Views Frontal and Lat Jj Grover; Wale (Verified) Notes: (Chest 2 Views Frontal and Lat) Reason For Exam: upper abdominal pain/shortness of breath;Other: RESULT: Chest 2 Views Frontal and Lat Chest 2 Views Frontal and Lat Hx of Present Illness: LUQ pain since feb . worse last 3 days; Reason: Other:; upper abdominal painshortness of breath; Clinical Question(s): Pleural Effusion COMPARISON: None. FINDINGS: LINES AND TUBES: None. LUNGS AND PLEURA: Clear lungs. Normal pulmonary vascularity. No pleural effusion. No pneumothorax. HEART, MEDIASTINUM AND CATE: Heart is normal in size. Normal mediastinal and hilar contour. BONES AND SOFT TISSUES: No acute abnormality. IMPRESSION: No acute abnormality. No significant interval change. WSN: [id number] Ordering Physician: Sirisha Doty Dictated By: Alexsander Davis MD, V Dictated Date/Time: 01/24/23 5:47 pm Reviewed By: Alexsander Davis MD, V Signed By: Alexsander Davis MD, V Signed Date/Time: 01/24/23 5:47 pm Transcribed By: ARON Transcribed Date/Time: 01/24/23 5:44 pm Vital Signs Most recent to oldest [Reference Range]: 1 2 3 Height 180 cm (01/25/23 12:43 AM) 180 cm (01/24/23 2:17 PM) Weight 86 kg (01/25/23 12:43 AM) 86 kg (01/24/23 2:17 PM) Oxygen Saturation [94-100 %] 98 % (01/25/23 12:43 AM) 99 % (01/24/23 2:17 PM) Pulse Rate [55-90 bpm] 66 bpm (01/25/23 12:43 AM) 111 bpm *H* (01/24/23 2:17 PM) Body Mass Index [18.5-24.99 kg/m2] 26.54 kg/m2 *H* (01/25/23 12:43 AM) 26.54 kg/m2 *H* (01/24/23 2:17 PM) Blood Pressure [90-138/55-84 mm Hg] 126/82mm Hg (01/25/23 12:43 AM) 140/91mm Hg *H* (01/24/23 2:17 PM) Respiratory Rate [16-30 br/min] 18 br/min (01/25/23 12:43 AM) 18 br/min (01/24/23 4:59 PM) 18 br/min (01/24/23 2:17 PM) Temperature [96.8-100.4 DegF] 98.4 DegF (01/24/23 2:17 PM) Mode of Delivery (Oxygen) Room air (01/25/23 12:43 AM) Room air (01/24/23 2:17 PM) Blood pressure sites Arm, left (01/25/23 12:43 AM) Arm, right (01/24/23 2:17 PM) Temperature Route Oral (01/24/23 2:17 PM) Dry Weight 86 kg (01/25/23 12:43 AM) 86 kg (01/24/23 2:17 PM) Weight Obtained Via Patient/family state d (01/24/23 2:17 PM) Dry Weight Obtained Via Patient/family s tated (01/24/23 2:17 PM) Social History Social History Type Response Smoking Status 10 or more cigarette s (1/2 pack or more)/day in last 30 days entered on: 05/07/22 Sex EKG study * Event Display: EKG Authored Date: * Event Display: ECG 12-Lead Authored Date: Please click on pdf link to open report * Event Display: ECG 12-Lead Authored Date: Ventricular Rate: 74 BPM Atrial Rate: 74 BPM P-R Interval: 152 ms QRS Duration: 92 ms Q-T Interval: 378 ms QTC Calculation(Bazett): 419 ms P [place]: 61 degrees R [place]: 44 degrees T [place]: 62 degrees Normal sinus rhythm Normal ECG When compared with ECG of 14-JAN-2023 12:17, No significant change was found Confirmed by JUAN SAMS MD ([id number]) on 01/24/2023 10:22:13 PM [place]: JUAN SAMS MD Note * Sara Ahmadi DO: PERFORM Event Display: Patient Education Leaflets Authored Date: Unknown Causes of Abdominal Pain(Adult) ?? [id number] Unknown Causes of Abdominal Pain(Adult) The exact [...] period ?? Last Reviewed Date: 2021 ?? 2113-0822 [employer]. All rights reserved. This information is not intended as a substitute for professional medical care. Always follow your healthcare professional's instructions. ?? * Sara Ahmadi DO: PERFORM Event Display: Patient Education Leaflets Authored Date: [id number] Headache, Unspecified ?? [id number] Headache, Unspecified A number of things can cause headaches. The cause of your headache isn???t clear. But it doesn???t seem to be a sign of any serious illness. Headache affects almost everyone at some time. It's the most common reason people miss days from work or school. A physical and nervous system exam can help rule out any serious causes of headache. Sometimes you may need more testing. This could include blood work or imaging tests of the head, such as a CAT scan or MRI. You could have a tension headache or a migraine headache. Stress can cause a tension headache. This can happen if you tense the muscles of your shoulders, neck, and scalp without knowing it. If this stress lasts long enough, you may develop a tension headache. It's not clear why migraines occur, but certain things called triggers can raise the risk of havinga migraine attack. Migraine triggers may include emotional stress or depression, or by hormone changes during the menstrual cycle. Other triggers include control pills and other medicines, alcohol or caffeine, foods with tyramine, such as aged cheese or wine, eyestrain, weather changes, missed meals, and lack of sleep or oversleeping. Other causes of headache include: ??? Viral illness with high fever ??? Head injury with concussion ??? Sinus, ear, or throat infection ??? Dental pain and jaw joint (TMJ) pain More serious but less common causes of headache include stroke, brain hemorrhage, brain tumor, meningitis, and encephalitis. Home care Follow these tips when taking care of yourself at home: ??? Don???t drive yourself home if you weregiven pain medicine for your headache. Instead, have someone else drive you home. Try to sleep whenyou get home. You should feel much better when you wake up. ??? Apply heat to the back of your neckto ease a neck muscle spasm. Take care of a migraine headache by putting an ice pack on your forehead or at the base of your skull. ??? If you have nausea or vomiting, eat a light diet until your headache eases. ??? If you have a migraine headache, use sunglasses when in the daylight or around bright indoor lighting until your symptoms get better. Bright glaring light can make this type of headache worse. ?? Follow-up care Follow up with your healthcare provider, or as advised. Talk with your provider if you have frequent headaches. They can help figure out a treatment plan. By knowing the earliest signs of headache, and starting treatment right away, you may be able to stop the pain yourself. ?? When to get medical advice Call your healthcare provider right away??if any of the following occur: ??? Your head pain suddenly gets worse after sexual intercourse or strenuous activity ??? Your head pain doesn???t get better within 24 hours ??? You have new symptoms ??? You aren???t able to keep liquids down (repeated vomiting) ??? Fever of 100.4??F (38??C) or higher, or as directed by your healthcare provider ??? Stiff neck ??? Extreme drowsiness, confusion, or fainting ??? Dizziness or dizziness with spinning sensation (vertigo) ??? Weakness in an arm or leg or one side of your face ??? You have trouble talking or seeing ?? Last Reviewed Date: 2022 ?? 5752-2079 [employer]. All rights reserved. This information is not intended as a substitute for professional medical care. Always follow your healthcare professional's instructions. ?? Patient Care team information Care Team Personnel Name: Nuvia Perez RN Position: [facility] RN Member Role: Primary Care Nurse Name: Dilcia Hartmann Position: [facility] RN Member Role: Primary Care Nurse Name: Kavita Laguna RN Position: [facility] RN Member Role: Primary Care Nurse Name: Pepe Dias Position: [facility] Outreach Member Role: PCP Address: Address: [address] [place] [address]- Name: Yenny Vergara Position: [facility] RN Member Role: Primary Care Nurse Name: Sirisha Doty MD Position: [facility] ED Medicine MD Member Role: ED Attending Physician Address: Address: [address] [place] [address]- Name: Renetta Castaneda RN Position: [facility] ED RN W/OE and Tasks Member Role: Patient Care Provider Name: Sara Ahmadi DO Position: [facility] Resident Member Role: Resident Address: Address: [address] [place] [address]- Care Team Related Persons Name: ABRAHAM NARVAEZ Address: home [address] [place] [phone]
--- OUTSIDE RECORDS SUMMARY | 2023-06-10 18:24 | XMS_ITS | Continuity of Care Document ---
Author Name Unknown Organization [facility] ter Address [address] [place] [id number]- Care Team Providers Care Horseradish Maker Name Role Phone Pepe Dias Primary Care Physician Encounter [facility] ACCT R [id number] Date(s): 03/11/23 - 03/12/[address] [address]- Discharge Disposition: A-D/C Walkout Attending Physician: Not [...] 02/02/23 9:04:00 EST, Route to Pharmacy Electronically, [facility], Partial fill upon patient request if... Start Date: 02/02/23 Stop Date: 03/04/23 Status: Ordered hydrOXYzine pamoate 50 mg oral capsule 1 capsule = 50 mg, By Mouth, 4 times a day, TAKE 1 CAPSULE BY MOUTH UP TO FOUR TIMES DAILY NEEDED FOR MILD TO MODERATE ANXIETY, # 60 capsule, 0 Refills, Maintenance, 02/02/23 9:04:00 EST, Capsule,[facility], Partial fill upon patient... Start [...] 02/02/23 9:10:00 EST, Route to Pharmacy Electronically, [facility], Partial fill upon patient request if [...] [Reference Range]: 1 2 Height 180 cm (03/11/23 9:28 PM) 180 cm (03/11/23 4:52 PM) Weight 84 kg (03/11/23 9:28 PM) 84 kg (03/11/23 4:52 PM) Oxygen Saturation [94-100 %] 98 % (03/12/23 1:10 AM) 100 % (03/11/23 4:52 PM) Pulse Rate [55-90 bpm] 60 bpm (03/12/23 1:10 AM) 69 bpm (03/11/23 4:52 PM) Body Mass Index [18.5-24.99 kg/m2] 25.93 kg/m2 *H* (03/11/23 4:52 PM) Blood Pressure [90-138/55-84 mm Hg] 123/ 78mm Hg (03/12/23 1:10 AM) 127/85mm Hg (03/11/23 4:52 PM) Respiratory Rate [16-30 br/min] 16 br/mi n (03/12/23 1:10 AM) 18 br/min (03/11/23 4:52 PM) Temperature [96.8-100.4 DegF] 97.7 DegF (03/12/23 1:10 AM) 98.3 DegF (03/11/23 4:52 PM) Mode of Delivery (Oxygen) Room air (03/12/23 1:10 AM) Room air (03/11/23 4:52 PM) Blood pressure sites Arm, right (03/12/23 1:10 AM) Arm, right (03/11/23 4:52 PM) Temperature Route Oral (03/12/23 1:10 AM) Oral (03/11/23 4:52 PM) Dry Weight 84 kg (03/11/23 9:28 PM) 84 kg (03/11/23 4:52 PM) Weight Obtained Via Patient/family state d (03/11/23 4:52 PM) Dry Weight Obtained Via Patient/family s tated (03/11/23 4:52 PM) Social History Social History Type Response Smoking Status 10 or more cigarette s (1/2 pack or more)/day in last 30 days entered on: 05/07/22 Sex EKG study * Event Display: EKG Authored Date: * Event Display: ECG 12-Lead Authored Date: Please click on pdf link to open report * Event Display: ECG 12-Lead Authored Date: [id number] Ventricular Rate: 61 BPM Atrial Rate: 61 BPM P-R Interval: 156 ms QRS Duration: 100 ms Q-T Interval: 402 ms QTC Calculation(Bazett): 404 ms P [place]: 56 degrees R [place]: 24 degrees T [place]: 53 degrees Normal sinus rhythm Normal ECG When compared with ECG of 10-MAR-2023 18:00, MANUAL COMPARISON REQUIRED, DATA IS UNCONFIRMED Confirmed by CHRISTO CURRY MD ([id number]) on 03/12/2023 11:43:25 AM [place]: CHRISTO CURRY MD Patient Care team information Care Team [...] S Outreach Member Role: PCP Address: Address: [address] [place] [address] Name: Bhupendra Gonzalez RN Position: S RN Member Role: Primary Care Nurse Name: Yenny Vergara Position: S RN Member Role: Primary Care Nurse Care Team Related Persons Name: LACEYPALMERABRAHAM Address: home [address] [place] [address]
--- OUTSIDE RECORDS SUMMARY | 2023-06-10 18:24 | XMS_ITS | Continuity of Care Document ---
Author Name Unknown Organization [facility] ter Address [address] [place] [id number]- Care Team Providers Care Shredding Machine Tender Name Role Phone Emre BURKS, Lilly Primary Care Physician Encounter [facility] Date(s): 12/08/22 - 12/08/[address] [address]- Discharge Disposition: A-D/C Home Attending Physician: Mirna Cornelius MD Admitting Physician: Mirna Cornelius MD Referring Physician: Not on Staff, Referring [...] Inj 0.5 mg, Injection, IV Push Slowly, Every 4 hours, PRN for Pain , Severe, Routine, 12/08/22 20:51:00EDT Start Date: 12/08/22 Stop Date: 12/15/22 Status: Ordered Metoprolol Tartrate 25 mg oral [...] Exam Date Time Procedure Performing Provider Status 12/08/22 9:[address] Angio Abdomen Ana Orantes; Au th (Verified) Notes: (CT Angio Abdomen) Reason For Exam: Renal artery dissection suspected;Other: RESULT: CT Angio Abdomen EXAMINATION: CT Angio Chest, CT Angio Abdomen INDICATION: Hx of Present Illness: Patient reports sudden onset chest pain, bilat lower ext numbness today. Has pain in left lower leg today. Denies traumatic injury.; Reason: Other:; Aortic disease,nontraumatic; Clinical Question(s): Other:; Aortic Dissection; Order Comment: TECHNIQUE: Spiral CTA of the chest and abdomen was performed after rapid IV contrast administrationwithout cardiac gating, triggered by an SUYAPA on the main pulmonary artery. Images are formatted in multiple planes using 2-D multiplanar and 3-D maximum intensity projection. 100 cc of Omnipaque 300 was administered intravenously. Weight-based protocol using automatic tube modulation was used to optimize exposure parameters. CTDIvol Body: 7.05 mGy, DLP Body: 384 mGy*cm. COMPARISONS: None. ANGIOGRAPHIC FINDINGS Thoracic aorta: No evidence of aortic dissection, mural thrombus, or aneurysm. The branches of the thoracic aorta are widely patent. No pulmonary embolism to the subsegmental level. Normal caliber pulmonary arteries. Abdominal aorta: No aortic aneurysm or dissection or mural thrombus. Celiac axis: Patent. Superior mesenteric artery: Patent. Right renal artery: Patent. Left renal artery: Patent. Inferior mesenteric artery: Patent. Visualized iliac arteries: Patent. NON-ANGIOGRAPHIC FINDINGS: Microwave Engineer View Findings, Lines and Tubes: None. Trachea and Airways: Patent without evidence of tracheal or endobronchial lesion. Lungs and Pleura: Right lower lobe linear atelectasis. No effusion or pneumothorax. Mediastinum and abraham: No mass or hematoma. No mediastinal or hilar lymphadenopathy. No esophageal abnormality. Heart: Heart is normal in size. No pericardial effusion. Chest Wall Soft Tissues: Normal. Diaphragm and upper abdomen: No significant abnormality. Liver: Normal. Gallbladder: No CT evidence of gallbladder pathology. Bile ducts: No biliary ductal dilation. Spleen: Normal. Pancreas: Normal. Adrenal glands: Normal. Kidneys and ureters: No hydronephrosis, stones, or suspicious masses. A right pelvic kidney is present. Stomach, small bowel, and large bowel: Visualized stomach and bowel are normal. Peritoneum and retroperitoneum: No ascites or pneumoperitoneum. No omental or mesenteric lesions. Lymph nodes: No enlarged lymph nodes. Abdominal wall: Unremarkable. Bones: No acute abnormality. IMPRESSION: No evidence of aortic dissection, mural thrombus, aneurysm. No evidence of pulmonary embolism. Linear atelectasis within the right lower lobe. Right pelvic kidney. WSN: [id number] Ordering Physician: Laz Brooks Dictated By: Vernon Ling MD Dictated Date/Time: 12/08/22 9:36 pm Reviewed By: Vernon Ling MD Signed By: Vernon Ling MD Signed Date/Time: 12/08/22 9:36 pm Transcribed By: ARON Transcribed Date/Time: 12/08/22 9:29 pm * Exam Date Time Procedure Performing Provider Status 12/08/22 9:[address] Angio Chest Ana Orantes; Auth (Verified) Notes: (CT Angio Chest) Reason For Exam: Aortic disease, nontraumatic;Other: RESULT: CT Angio Chest EXAMINATION: CT Angio Chest, CT Angio Abdomen INDICATION: Hx of Present Illness: Patient reports sudden onset chest pain, bilat lower ext numbness today. Has pain in left lower leg today. Denies traumatic injury.; Reason: Other:; Aortic disease,nontraumatic; Clinical Question(s): Other:; Aortic Dissection; Order Comment: TECHNIQUE: Spiral CTA of the chest and abdomen was performed after rapid IV contrast administrationwithout cardiac gating, triggered by an SUYAPA on the main pulmonary artery. Images are formatted in multiple planes using 2-D multiplanar and 3-D maximum intensity projection. 100 cc of Omnipaque 300 was administered intravenously. Weight-based protocol using automatic tube modulation was used to optimize exposure parameters. CTDIvol Body: 7.05 mGy, DLP Body: 384 mGy*cm. COMPARISONS: None. ANGIOGRAPHIC FINDINGS Thoracic aorta: No evidence of aortic dissection, mural thrombus, or aneurysm. The branches of the thoracic aorta are widely patent. No pulmonary embolism to the subsegmental level. Normal caliber pulmonary arteries. Abdominal aorta: No aortic aneurysm or dissection or mural thrombus. Celiac axis: Patent. Superior mesenteric artery: Patent. Right renal artery: Patent. Left renal artery: Patent. Inferior mesenteric artery: Patent. Visualized iliac arteries: Patent. NON-ANGIOGRAPHIC FINDINGS: Microwave Engineer View Findings, Lines and Tubes: None. Trachea and Airways: Patent without evidence of tracheal or endobronchial lesion. Lungs and Pleura: Right lower lobe linear atelectasis. No effusion or pneumothorax. Mediastinum and abraham: No mass or hematoma. No mediastinal or hilar lymphadenopathy. No esophageal abnormality. Heart: Heart is normal in size. No pericardial effusion. Chest Wall Soft Tissues: Normal. Diaphragm and upper abdomen: No significant abnormality. Liver: Normal. Gallbladder: No CT evidence of gallbladder pathology. Bile ducts: No biliary ductal dilation. Spleen: Normal. Pancreas: Normal. Adrenal glands: Normal. Kidneys and ureters: No hydronephrosis, stones, or suspicious masses. A right pelvic kidney is present. Stomach, small bowel, and large bowel: Visualized stomach and bowel are normal. Peritoneum and retroperitoneum: No ascites or pneumoperitoneum. No omental or mesenteric lesions. Lymph nodes: No enlarged lymph nodes. Abdominal wall: Unremarkable. Bones: No acute abnormality. IMPRESSION: No evidence of aortic dissection, mural thrombus, aneurysm. No evidence of pulmonary embolism. Linear atelectasis within the right lower lobe. Right pelvic kidney. WSN: [id number] Ordering Physician: Laz Brooks Dictated By: Sushil RENEE, Vernon Horne Dictated Date/Time: 12/08/22 9:36 pm Reviewed By: Vernon Ling MD Signed By: Vernon Ling MD Signed Date/Time: 12/08/22 9:36 pm Transcribed By: ARON Transcribed Date/Time: 12/08/22 9:29 pm * Exam Date Time Procedure Performing Provider Status 12/08/22 1:19 PM Chest 2 Views Frontal and Lat Augustine Moran; Auth (Verified) Notes: (Chest 2 Views Frontal and Lat) Reason For Exam: Chest Pain;Other: RESULT: Chest 2 Views Frontal and Lat PA and lateral chest dated December 08, 2022. Comparison studies are from December 04 and November 30, 2022. HISTORY: Chest pain. FINDINGS: Today's study is minimally limited as the apices are not included right more so than left. The cardiac silhouette is within normal limits for size. Hilar and mediastinal structures are unremarkable. No airspace infiltrate or pleural effusion is identified. Mild degenerative changes are present in the shoulders. IMPRESSION: No evidence of acute pulmonary disease. Examination [id number]. Thank you for allowing me to participate in the care of this patient. WSN: [id number] Ordering Physician: Patti Buchanan Dictated By: Yunior Acosta MD Dictated Date/Time: 12/08/22 1:24 pm Reviewed By: Yunior Acosta MD Signed By: Yunior Acosta MD Signed Date/Time: 12/08/22 1:24 pm Transcribed By: ARON Transcribed Date/Time: 12/08/22 1:24 pm Vital Signs Most recent to oldest [Reference Range]: 1 2 3 Height 180 cm (12/08/22 10:35 PM) 180 cm (12/08/22 5:23 PM) 180 cm (12/08/22 12:23 PM) Weight 82 kg (12/08/22 10:35 PM) 82 kg (12/08/22 5:23 PM) 82 kg (12/08/22 12:23 PM) Oxygen Saturation [94-100 %] 99 % (12/08/22 10:35 PM) 100 % (12/08/22 7:07 PM) 100 % (12/08/22 6:17 PM) Pulse Rate [55-90 bpm] 66 bpm (12/08/22 10:35 PM) 81 bpm (12/08/22 7:07 PM) 82 bpm (12/08/22 6:17 PM) Body Mass Index [18.5-24.99 kg/m2] 25.31 kg/m2 *H* (12/08/22 10:35 PM) 25.31 kg/m2 *H* (12/08/22 12:06 PM) Blood Pressure [90-138/55-84 mm Hg] 136/107mm Hg (12/08/22 10:35 PM) 149/103mm Hg *H* (12/08/22 7:07 PM) 135/96mm Hg (12/08/22 6:17 PM) Respiratory Rate [16-30 br/min] 16 br/min (12/08/22 10:35 PM) 20 br/min (12/08/22 8:24 PM) 15 br/min *L* (12/08/22 7:07 PM) Temperature [96.8-100.4 DegF] 98.1 DegF (12/08/22 7:07 PM) 98.4 DegF (12/08/22 6:17 PM) 98.4 DegF (12/08/22 4:01 PM) Mode of Delivery (Oxygen) Room air (12/08/22 10:35 PM) Room air (12/08/22 7:07 PM) Room air (12/08/22 6:17 PM) Blood pressure sites Arm, right (12/08/22 7:07 PM) Arm, right (12/08/22 6:17 PM) Arm, right (12/08/22 4:01 PM) Temperature Route Oral (12/08/22 7:07 PM) Oral (12/08/22 6:17 PM) Oral (12/08/22 4:01 PM) Dry Weight 82 kg (12/08/22 10:35 PM) 82 kg (12/08/22 5:23 PM) 82 kg (12/08/22 12:23 PM) Weight Obtained Via Patient/family state d (12/08/22 12:06 PM) Dry Weight Obtained Via Patient/family s tated (12/08/22 12:06 PM) Social History Social History Type Response Smoking Status 10 or more cigarette s (1/2 pack or more)/day in last 30 days entered on: 2/25/23 Sex EKG study * Event Display: ECG 12-Lead Authored Date: Please click on pdf link to open report * Event Display: ECG 12-Lead Authored Date: Ventricular Rate: 99 BPM Atrial Rate: 99 BPM P-R Interval: 142 ms QRS Duration: 90 ms Q-T Interval: 350 ms QTC Calculation(Bazett): 449 ms P [place]: 74 degrees R [place]: 60 degrees T [place]: 66 degrees Normal sinus rhythm Normal ECG When compared with ECG of 04-DEC-2022 18:48, Vent. rate has increased BY 41 BPM Confirmed by MILO BURCH ([id number]) on 12/08/2022 5:41:27 PM [place]: MILO BURCH * Event Display: EKG Authored Date: * Event Display: EKG Authored Date: Note * Caryn Beauchamp DO: PERFORM Event Display: Patient Education Leaflets Authored Date: Unknown Causes of Abdominal Pain(Adult) ?? [id number] Unknown Causes of Abdominal Pain(Adult) The exact [...] period ?? Last Reviewed Date: 2021 ?? [id number] [employer]. All rights reserved. This information is not intended as a substitute for professional medical care. Always follow your healthcare professional's instructions. ?? Patient Care team information Care Team Personnel Name: Nuvia Perez RN Position: [facility] RN Member Role: Primary Care Nurse Name: Dilcia Hartmann Position: [facility] RN Member Role: Primary Care Nurse Name: Kavita Laguna RN Position: [facility] RN Member Role: Primary Care Nurse Name: Lilly Andrea NP Position: Reference Physician Member Role: PCP Address: Address: [address] [place] [id number]- Name: Yenny Vergara Position: [facility] RN Member Role: Primary Care Nurse Name: Caryn Beauchamp DO Position: [facility] Resident Member Role: ED Resident Address: Address: [address] [place] [id number]- Name: Mirna Cornelius MD Position: [facility] ED Medicine MD Member Role: Admitting Physician Address: Address: [address] [place] [id number]- Name: Alfredo Mtz RN Position: [facility] ED RN W/OE and Tasks Member Role: Patient Care Provider Name: Angeline Trevino Position: [facility] ED [facility] Care Team Related Persons Name: ABRAHAM NARVAEZ Address: home [address] [place] [address]
--- OUTSIDE RECORDS SUMMARY | 2023-06-10 18:24 | XMS_ITS | Continuity of Care Document ---
Author Name Unknown Organization [facility] ter Address [address] [place] [id number]- Care Team Providers Care Supply Controller Name Role Phone Lainey Zepeda DO Primary Care Physician [phone] Encounter [facility] [place] Date(s): 02/02/23 - 02/02/[address] [address]- Encounter Diagnosis Palpitations(Final) - 02/02/23 Discharge Disposition: A-D/C Home Attending Physician: Chelsea Rey MD Admitting Physician: Chelsea Rey MD Referring Physician: Not on Staff, Referring [...] 02/02/23 9:04:00 EST, Route to Pharmacy Electronically, [facility], Partial fill upon patient request if... Start Date: 02/02/23 Stop Date: 03/04/23 Status: Ordered hydrOXYzine pamoate 50 mg oral capsule 1 capsule = 50 mg, By Mouth, 4 times a day, TAKE 1 CAPSULE BY MOUTH UP TO FOUR TIMES DAILY NEEDED FOR MILD TO MODERATE ANXIETY, # 60 capsule, 0 Refills, Maintenance, 02/02/23 9:04:00 EST, Capsule,[facility], Partial fill upon patient... [...] 02/02/23 9:10:00 EST, Route to Pharmacy Electronically, [facility], Partial fill upon patient request if the prescription is for a schedule I... Start Date: 02/02/23 Stop Date: 03/04/23 Status: Ordered metoprolol 25 mg oral tablet 25 mg, Tablet, By Mouth, 02/02/23 21:00:00 EST Start Date: 02/02/23 Stop Date: 02/02/23 Status: Completed omeprazole 20 mg oral enteric coated capsule [...] Range]: 1 2 3 Height 180 cm (02/02/23 6:52 PM) 180 cm (02/02/23 3:06 PM) Weight 86 kg (02/02/23 6:52 PM) 86 kg (02/02/23 3:06 PM) Oxygen Saturation [94-100 %] 99 % (02/02/23 6:52 PM) 99 % (02/02/23 3:04 PM) 100 % (02/02/23 3:00 PM) Pulse Rate [55-90 bpm] 69 bpm (02/02/23 6:52 PM) 67 bpm (02/02/23 4:46 PM) 76 bpm (02/02/23 3:04 PM) Body Mass Index [18.5-24.99 kg/m2] 26.54 kg/m2 *H* (02/02/23 6:52 PM) 26.54 kg/m2 *H* (02/02/23 3:06 PM) Blood Pressure [90-138/55-84 mm Hg] 140/100mm Hg *H* (02/02/23 6:52 PM) 118/73mm Hg (02/02/23 4:46 PM) 127/88mm Hg (02/02/23 3:04 PM) Respiratory Rate [16-30 br/min] 15 br/min *L* (02/02/23 6:52 PM) 16 br/min (02/02/23 4:46 PM) 16 br/min (02/02/23 3:04 PM) Temperature [96.8-100.4 DegF] 97.9 DegF (02/02/23 6:52 PM) 97.7 DegF (02/02/23 3:04 PM) Mode of Delivery (Oxygen) Room air (02/02/23 6:52 PM) Room air (02/02/23 3:04 PM) Room air (02/02/23 3:00 PM) Blood pressure sites Arm, left (02/02/23 6:52 PM) Leg, left (02/02/23 3:04 PM) Temperature Route Oral (02/02/23 6:52 PM) Oral (02/02/23 3:04 PM) Social History Social History Type Response Smoking Status 10 or more cigarette s (1/2 pack or more)/day in last 30 days entered on: 05/07/22 Sex Note * Kacie BURKS, Tasha Madrid: PERFORM Event Display: Patient Education Leaflets Authored Date: [id number] Heart Palpitations ?? [id number] Heart Palpitations Palpitations are the feeling that your heart is beating hard, fast, or irregular. Some describe it as pounding, flip-flopping in the chest, or skipped beats. Palpitations may occur in someone with heart disease. But they can also occur in a healthy person. Heart-related causes: ??? Heart rhythm problem (arrhythmia) ??? Heart valve disease ??? Disease of the heart muscle (cardiomyopathy) ??? Coronary artery disease ??? High blood pressure Aor-nrysr-yoyjybs causes: ??? Certain medicines such as asthma inhalers and decongestants ??? Some herbal supplements, energydrinks and pills, and weight loss pills ??? Illegal stimulant drugs such as cocaine, crank, methamphetamine, PCP, and ecstasy ??? Caffeine, alcohol, and tobacco ??? Health conditions such as thyroid disease, anemia, anxiety, and panic disorder Sometimes the cause can't be found. Home care Follow these home care tips: ??? Don't use too much caffeine, alcohol, or tobacco, or any stimulantdrugs. ??? Tell your doctor about any prescription or blwn-qhi-jzkjhbt or herbal medicines you take. ?? Follow-up care ??? Follow up with your doctor, or as advised. ?? Call 911 This is the fastest and safest way to get to the emergency department. The paramedics can also start treatment on the way to the hospital, if needed. Don't wait until your symptoms are severe to call 911. These are reasons to call 911: ??? Chest pain ??? Shortness of breath ??? Feeling lightheaded, faint, or dizzy, or losing consciousness ??? Veryirregular heartbeat ??? Rapid heartbeat that makes you uncomfortable ??? Slower than usual heart rate along with symptoms ??? Chest pain with weakness, dizziness,??heavy sweating, nausea, or vomiting??? Extreme drowsiness, confusion, or weakness ??? Weakness of an arm or leg, or on one side of theface ??? Trouble with speech or vision ?? When to seek medical advice Call your healthcare provider right away if you have palpitations that last longer than normal, or are different from your past palpitations. ?? Last Reviewed Date: 2021 ?? 3280-0643 [employer]. All rights reserved. This information is not intended as a substitute for professional medical care. Always follow your healthcare professional's instructions. ?? * Kacie BURKS, Tasha Madrid: PERFORM Event Display: Patient Education Leaflets Authored Date: [id number] Uncertain Causes of Chest Pain ?? [id number] Uncertain Causes of Chest Pain Chest pain can happen for a number of reasons. Sometimes the cause can't be determined. If your??condition does not seem serious, and your pain does not appear to be coming from your heart, your healthcare provider may recommend watching it closely. Sometimes the signs of a serious problem take more time to appear. Many problems not related to your heart can cause chest pain. These include: ??? Musculoskeletal. Costochondritis is an inflammation of the tissues around the ribs that can occur from trauma or overuse injuries, or a strain of the muscles of the chest wall. ??? Respiratory. Pneumonia, collapsed lung (pneumothorax), or inflammation of the lining of the chest and lungs (pleurisy). ??? Gastrointestinal. Esophageal reflux, heartburn, ulcers, or gallbladder disease. ??? Anxiety and panic disorders ??? Nerve compression and inflammation ??? Rare problems such as aortic aneurysm or aortic dissection (a swelling of the large artery coming out of the heart or a tear in the wall of the artery), or pulmonary embolism (a blood clot in the lungs). Home care After your visit, follow these recommendations: ??? Rest today and avoid strenuous activity. ??? Take any prescribed medicine as directed. ??? Be aware of any recurrent chest pain and notice any changes ?? Follow-up care Follow up with your healthcare provider if you don't start to feel better within 24 hours, or as advised. ?? Call 911 Call 911 if any of these occur: ??? A change in the type of pain: if it feels different, becomes more severe, lasts longer, or begins to spread into your shoulder, arm, neck, jaw or back ??? Shortness of breath or increased pain with breathing ??? Weakness, dizziness, or fainting ??? Rapid heartbeat ??? Crushing sensation in your chest ??? Coughing up more than a small amount of blood. ?? When to seek medical advice Call your healthcare provider right away if any of the following occur: ??? Cough with dark coloredsputum (phlegm) or small amount of blood ??? Fever of 100.4??F??(38??C) or higher, or as directed by your healthcare provider ??? Swelling, pain or redness in one leg ?? Last Reviewed Date: 2021 ?? [id number] [employer]. All rights reserved. This information is not intended as a substitute for professional medical care. Always follow your healthcare professional's instructions. ?? Patient Care team information Care Team Personnel Name: Nuvia Perez RN Position: [facility] RN Member Role: Primary Care Nurse Name: John Joaquin RN Position: [facility] RN Member Role: Primary Care Nurse Name: Dilcia Hartmann Position: [facility] RN Member Role: Primary Care Nurse Name: Kavita Laguna RN Position: [facility] RN Member Role: Primary Care Nurse Name: Lainey Zepeda DO Position: [facility] Physician - Hospital Medicine Member Role: PCP Address: Address: [address] [place] [address]- Name: Bhupendra Gonzalez RN Position: [facility] RN Member Role: Primary Care Nurse Name: Yenny Vergara Position: [facility] RN Member Role: Primary Care Nurse Name: Mildred Crum Position: [facility] ED TA [facility] Member Role: Thermite Welder Name: Christine Garg RN Position: [facility] ED RN W/OE and Tasks Member Role: Patient Care Provider Name: Chelsea Rey MD Position: [facility] ED Medicine MD Member Role: Admitting Physician Address: Address: [address] [place] [address]- Name: Tasha Hester NP Position: [facility] Associate Professional Member Role: ED Physician Ornamental Machine Operator Address: Address: [address] [address]- Care Team Related Persons Name: ABRAHAM NARVAEZ Address: home [address] [place] [address]
--- OUTSIDE RECORDS SUMMARY | 2023-06-10 18:24 | XMS_ITS | Continuity of Care Document ---
Author Name Unknown Organization [facility] ter Address [address] [place] [address]- Care Team Providers Care Trust And Estates Attorney Name Role Phone Madison RENEE, Magan Horne Primary Care Physician [place] [facility] [place]/26/21 - 02/27/[address] [address] Encounter Diagnosis Palpitations(Final) - 02/26/21 Discharge Disposition: A-D/C Home Attending Physician: Marcelle Klein MD Admitting Physician: Kalen Meraz MD Referring Physician: Not on Staff, Referring MD Allergies, Adverse Reactions, Alerts Substance Reaction Severity Status NKA Active Immunizations Not Given Vaccine Date Status Refusal Reason SARS-CoV-2 (COVID-19) mRNA BNT-162b2 vac 1 02/27/21 Not Given Patient Refuses influenza virus vaccine, inactivated 2 02/27/21 No t Given Patient Refuses 1Result Comment: Pt does not want the covid vaccine during hospitalization, will get outpatient 2Result Comment: Pt does not want the flu vaccine, refused Medications metoprolol 50 mg oral tablet, extended release 50 mg, XL Tablet, By Mouth, 02/27/21 9:00:00 EST Start Date: 02/27/21 Stop Date: 02/27/21 Status: Completed metoprolol 50 mg oral tablet, extended release 50 mg, 1, tablet, By Mouth, Daily, # 30 tablet, Refills 3, Tot. Refills 3, Maintenance, 02/27/21 9:55:00 EST, Route to Pharmacy Electronically, [facility], Partial fill upon patient request if the prescription is for a schedule II opioid... Start Date: 02/27/21 Stop Date: 06/27/21 Status: Ordered rivaroxaban 20 mg oral tablet = 20 mg, By Mouth, Daily at supper, # 30 tablet, 3 Refills, Maintenance, 02/27/21 9:56:00 EST, Tablet, [facility], Partial fill upon patient request if the prescription is for a schedule II opioid drug., 180, cm, 02/27/21 1:48:00 EST, He... Start Date: 02/27/21 Stop Date: 06/27/21 Status: Ordered Suboxone 8 mg-2 mg sublingual film 1 film, Sublingual, 2 times a day, dissolve under the tongue, 0 Refills, Maintenance, 02/26/21 10:42:00 EST, Film, Partial fill upon patient request if the prescription is for a schedule II opioid drug. Start Date: 02/26/21 Status: Ordered Results Radiology Reports * Exam Date Time Procedure Performing Provider Status 02/26/21 12:23 AM Chest Portable Laz Ball; Auth (Verified) Notes: (Chest Portable) Reason For Exam: Shortness of Breath RESULT: Chest Portable Chest Portable, AP upright at 12:07 AM. Hx of Present Illness: rapid heart rate; Reason: Shortness of Breath; Clinical Question(s): CHF COMPARISON: None. FINDINGS: LINES AND TUBES: None. LUNGS AND PLEURA: Low lung volumes with mild basilar atelectasis. Mild bilateral vascular prominence. Lungs are otherwise clear with no consolidation. No pleural effusion. No pneumothorax. HEART, MEDIASTINUM AND CATE: Heart is normal in size. Normal upper mediastinal and hilar contour. BONES AND SOFT TISSUES: No acute abnormality. IMPRESSION: Mild bilateral vascular prominence may be secondary to vascular crowding from low lung volumes or due to pulmonary edema. Otherwise lungs are clear. I have personally reviewed the images and I agree with this report. WSN: [id number] Ordering Physician: Axel Sadler Dictated By: David Weir DO Dictated Date/Time: 02/26/21 8:31 am Reviewed By: Alexsander Davis MD, V Signed By: Alexsander Davis MD, V Signed Date/Time: 02/26/21 8:36 am Transcribed By: ARON Transcribed Date/Time: 02/26/21 8:21 am Vital Signs Most recent to oldest [Reference Range]: 1 2 3 Height 180 cm (02/27/21 1:48 AM) 180 cm (02/26/21 8:08 PM) Weight 93.8 kg (02/26/21 8:08 PM) Oxygen Saturation [94-100 %] 96 % (02/27/21 8:00 AM) 98 % (02/27/21 1:48 AM) 94 % (02/26/21 8:08 PM) Pulse Rate [55-90 bpm] 65 bpm (02/27/21 8:58 AM) 65 bpm (02/27/21 8:00 AM) 65 bpm (02/27/21 1:48 AM) Body Mass Index [18.5-24.99] 28.95 *H* (02/26/21 8:08 PM) Blood Pressure [90-138/55-84 mm Hg] 130/89mm Hg (02/27/21 8:58 AM) 130/89mm Hg (02/27/21 8:00 AM) 125/85mm Hg (02/27/21 1:48 AM) Respiratory Rate [16-30 br/min] 18 br/min (02/27/21 8:00 AM) 18 br/min (02/27/21 1:48 AM) 18 br/min (02/26/21 8:08 PM) Temperature [96.8-100.4 DegF] 97.6 DegF (02/27/21 8:00 AM) 98.6 DegF (02/27/21 1:48 AM) 98.6 DegF (02/26/21 8:08 PM) Mode of Delivery (Oxygen) Room air (02/27/21 8:00 AM) Room air (02/27/21 1:48 AM) Room air (02/26/21 7:00 PM) Blood pressure sites Arm, left (02/27/21 8:00 AM) Arm, left (02/27/21 1:48 AM) Arm, left (02/26/21 8:08 PM) Temperature Route Oral (02/27/21 8:00 AM) Oral (02/27/21 1:48 AM) Oral (02/26/21 8:08 PM) Dry Weight 93 kg (02/26/21 8:08 PM) Weight Obtained Via Bed scale (02/26/21 8:08 PM) Dry Weight Obtained Via Patient/family s tated (02/26/21 8:08 PM)
--- OUTSIDE RECORDS SUMMARY | 2023-06-10 18:24 | XMS_ITS | Continuity of Care Document ---
Author Name Unknown Organization [facility] ter Address [address] [place] [address]- Care Team Providers Care Junior Programmer Name Role Phone Lilly Andrea NP Primary Care Physician Encounter [facility] [place] Date(s): 12/04/22 - 12/05/[address] [address]- Encounter Diagnosis Afib(Final) - 12/04/22 Discharge Disposition: A-D/C Home Attending Physician: Rk Lenz MD Admitting Physician: Rk Lenz MD Referring Physician: Not on Staff, Referring [...] Exam Date Time Procedure Performing Provider Status 12/04/22 8:14 PM US Doppler Ext Lower Venous Left Pelsk i , Nicole; Auth (Verified) Notes: (US Doppler Ext Lower Venous Left) Reason For Exam: Pain in limb;Other: RESULT: US Doppler Ext Lower Venous Left US Doppler Ext Lower Venous Left Hx of Present Illness: L lower CP - pinching . Worse when he takes a drink of H2O. Ringing in L ear, head is pounding . feels like someone is pouring hot water on L leg. Symptoms began 8 mos ago. Denies SOB. Complex and many complaints and has seen specialists (GI and cards); Reason: Other:; Painin limb; Clinical Question(s): Thrombus COMPARISON: 11/19/2022. IMAGING TECHNIQUE: Ultrasound of the veins from [...] femoral vein: Patent. No thrombosis. OTHER FINDINGS: None. IMPRESSION: No evidence of deep venous thrombosis. WSN: [id number] Ordering Physician: Rk Lenz Dictated By: Concha RENEE, Veronika Dictated Date/Time: 12/04/22 8:22 pm Reviewed By: Veronika Kern MD Signed By: Veronika Kern MD Signed Date/Time: 12/04/22 8:22 pm Transcribed By: ARON Transcribed Date/Time: 12/04/22 8:20 pm * Exam Date Time Procedure Performing Provider Status 12/04/22 5:48 PM Chest 2 Views Frontal and Lat aNtaliia Rojas; Auth (Verified) Notes: (Chest 2 Views Frontal and Lat) Reason For Exam: Chest Pain;Other: RESULT: Chest 2 Views Frontal and Lat Chest 2 Views Frontal and Lat Hx of Present Illness: L lower CP - pinching . Worse when he takes a drink of H2O. Ringing in L ear, head is pounding . feels like someone is pouring hot water on L leg. Symptoms began 8 mos ago. Denies SOB. Complex and many complaints and has seen specialists (GI and cards); Reason: Other:; Chest Pain; Clinical Question(s): Other: / Other: COMPARISON: 11/30/2022 FINDINGS: LINES AND TUBES: None. LUNGS AND PLEURA: Clear lungs. Normal pulmonary vascularity. No pleural effusion. No pneumothorax. HEART, MEDIASTINUM AND CATE: Heart is normal in size. Normal mediastinal and hilar contour. BONES AND SOFT TISSUES: No acute abnormality. IMPRESSION: No evidence of acute abnormality. WSN: [id number] Ordering Physician: Leonardo Morales Dictated By: Dexter Domínguez MD Dictated Date/Time: 12/04/22 5:57 pm Reviewed By: Dexter Domínguez MD Signed By: Dexter Domínguez MD Signed Date/Time: 12/04/22 5:57 pm Transcribed By: ARON Transcribed Date/Time: 12/04/22 5:57 pm Vital Signs Most recent to oldest [Reference Range]: 1 2 3 Height 180 cm (12/04/22 5:17 PM) 180 cm (12/04/22 4:55 PM) Oxygen Saturation [94-100 %] 97 % (12/04/22 11:50 PM) 98 % (12/04/22 8:27 PM) 98 % (12/04/22 6:08 PM) Pulse Rate [55-90 bpm] 64 bpm (12/04/22 11:50 PM) 62 bpm (12/04/22 8:27 PM) 63 bpm (12/04/22 6:08 PM) Blood Pressure [90-138/55-84 mm Hg] 131/92mm Hg (12/04/22 11:50 PM) 126/90mm Hg (12/04/22 8:27 PM) 124/101mm Hg (12/04/22 6:08 PM) Respiratory Rate [16-30 br/min] 16 br/min (12/04/22 11:50 PM) 18 br/min (12/04/22 8:27 PM) 18 br/min (12/04/22 6:08 PM) Temperature [96.8-100.4 DegF] 98.2 DegF (12/04/22 4:55 PM) Mode of Delivery (Oxygen) Room air (12/04/22 11:50 PM) Room air (12/04/22 8:27 PM) Room air (12/04/22 6:08 PM) Blood pressure sites Arm, left (12/04/22 11:50 PM) Arm, left (12/04/22 4:55 PM) Temperature Route Oral (12/04/22 4:55 PM) Dry Weight 82 kg (12/04/22 5:17 PM) 82 kg (12/04/22 4:55 PM) Social History Social History Type Response Smoking Status 10 or more cigarette s (1/2 pack or more)/day in last 30 days entered on: 05/07/22 Sex EKG study * Event Display: EKG Authored Date: Patient Care team information Care Team Personnel Name: Nuvia Perez RN Position: [facility] RN Member Role: Primary Care Nurse Name: Dilcia Hartmann Position: [facility] RN Member Role: Primary Care Nurse Name: Kavita Laguna RN Position: [facility] RN Member Role: Primary Care Nurse Name: Lilly Andrea NP Position: Reference Physician Member Role: PCP Address: Address: [address] [place] [id number] Name: Yenny Vergara Position: S RN Member Role: Primary Care Nurse Name: Lory Ta Position: [facility] ED [facility] Name: Rk Lenz MD Position: [facility] Resident Member Role: ED Attending Physician Address: Address: [address] [place] [address]- Name: Gio Alberts RN Position: [facility] ED RN W/OE and Tasks Member Role: Patient Care Provider Care Team Related Persons Name: ABRAHAM NARVAEZ Address: [place] [address]
--- OUTSIDE RECORDS SUMMARY | 2023-06-10 18:24 | XMS_ITS | Continuity of Care Document ---
Author Name Unknown Organization [facility] Address [address] [address]- Care Team Providers Care Product Safety Professional Name Role Phone Lainey Zepeda DO Primary Care Physician Encounter [facility] [place] [facility] [id number] Date(s): 12/12/22 - 02/03/23 [facility] [address] [address]- Attending Physician: Akil Nguyen MD Admitting Physician: Akil Nguyen MD Referring Physician: Pepe Dias Allergies, Adverse Reactions, Alerts Substance Reaction Severity [...] 02/02/23 9:04:00 EST, Route to Pharmacy Electronically, [facility], Partial fill upon patient request if... Start Date: 02/02/23 Stop Date: 03/04/23 Status: Ordered hydrOXYzine pamoate 50 mg oral capsule 1 capsule = 50 mg, By Mouth, 4 times a day, TAKE 1 CAPSULE BY MOUTH UP TO FOUR TIMES DAILY NEEDED FOR MILD TO MODERATE ANXIETY, # 60 capsule, 0 Refills, Maintenance, 02/02/23 9:04:00 EST, Capsule,[facility], Partial fill upon patient... [...] 02/02/23 9:10:00 EST, Route to Pharmacy Electronically, [facility], Partial fill upon patient [...] Confirmed Active Paroxysmal atrial fibrillation Confirmed Active Social History Social History Type Response Smoking Status 10 or more cigarette s (1/2 pack or more)/day in last 30 days entered on: 05/07/22 Sex Laboratory * Event Display: Non Lab Results Authored Date: Radiology * Event Display: CT Scan Abdomen, Non- Authored Date: [id number] Patient Care team information Care Team Personnel Name: Nuvia Perez RN Position: [facility] RN Member Role: Primary Care Nurse Name: John Joaquin RN Position: [facility] RN Member Role: Primary Care Nurse Name: Dilcia Hartmann Position: [facility] RN Member Role: Primary Care Nurse Name: Kavita Laguna RN Position: [facility] RN Member Role: Primary Care Nurse Name: Lainey Zepeda DO Position: [facility] Physician - Hospital Medicine Member Role: PCP Address: Address: [address] [place] [id number] Name: Bhupendra Gonzalez RN Position: [facility] RN Member Role: Primary Care Nurse Name: Yenny Vergara Position: [facility] RN Member Role: Primary Care Nurse Care Team Related Persons Name: ABRAHAM NARVAEZ Address: home [address] [place] [address]
--- OUTSIDE RECORDS SUMMARY | 2023-06-10 18:24 | XMS_ITS | Continuity of Care Document ---
Author Name Unknown Organization [facility] ter Address [address] [place] [id number]- Care Team Providers Care Manager Learning Name Role Phone Pepe Dias Primary Care Physician Encounter [facility] [place] Date(s): 06/14/22 - 06/15/[address] [address]- Encounter Diagnosis Abdominal pain(Final) - 06/15/22 Discharge Disposition: A-D/C Home Attending Physician: Benny Castillo MD Admitting Physician: Benny Castillo MD Referring Physician: Not on Staff, Referring [...] 04/02/22 9:51:00 EST, Route to Pharmacy Electronically, [facility], Partial fill upon patient request if the prescription is for a schedule II opioid... Start Date: 04/02/22 Stop Date: 06/01/22 Status: Ordered Cardizem CD 120 mg/24 hours oral capsule, extended release 120 mg, 1, capsule, By Mouth, Daily, # 30 capsule, Refills 1, Tot. Refills 1, Maintenance, 239:51:00 EST, Route to Pharmacy Electronically, [facility], Partial fill upon patient request if the prescription is for a schedule II opi... Start Date: 04/02/22 Stop Date: 06/01/22 Status: Ordered ondansetron 4 mg oral tablet, disintegrating 1 tablet = 4 mg, By Mouth, Every 6 hours, PRN as needed for nausea/vomiting, # 12 tablet, 0 Refills, Maintenance, 06/15/22 11:59:00 EDT, DIS Tablet, [id number], Partial fill upon patient request if the [...] List Condition Confirmation Course Effective Dates Status [facility] Atrial fibrillation Confirmed Active Results Radiology Reports * Exam Date Time Procedure Performing Provider Status 06/15/22 9:[address] Abd/Pelvis W/ IV Contrast Only Nicolette Salcido; Auth (Verified) Notes: (CT Abd/Pelvis W/ IV Contrast Only) Reason For Exam: LLQ abdominal pain;Other: RESULT: CT Abd/Pelvis W/ IV Contrast Only CT Abd/Pelvis W/ IV Contrast Only Hx of Present Illness: . Pt reports he is having ongoing upper abdominal pain with reports tender armpits , pt also c o just not feeling well. Pt reports upper abdominal pain feels like he has a turkey in his stomach; Reason: Other:; LLQ abdominal pain; Clinical Question(s): Diverticulitis; Order Comment: TECHNIQUE: Spiral CT through the abdomen and pelvis with IV contrast formatted in 3 planes. 100 cc of Omnipaque 300 was administered intravenously. This study was performed without oral contrast. Weight-based protocol using automatic tube modulation was used to optimize exposure parameters. CTDIvol Body: 15.50 mGy, DLP Body: 832 mGy*cm. COMPARISON: CT abdomen pelvis 05/23/2022 FINDINGS: Hat Sizer View Findings, Lines and Tubes: None. Visualized Chest: Lung bases are clear. No pleural effusion. The heart is normal in size. No pericardial effusion. Diaphragm: Normal. Liver: Normal. Gallbladder: No CT evidence of gallbladder pathology. Bile ducts: No biliary ductal dilation. Spleen: Normal. Accessory splenic tissue is incidentally noted. Pancreas: Normal. Adrenal glands: Unchanged flattening the right adrenal gland related to a right pelvic kidney. Normal left adrenal gland. 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 Nohydronephrosis bilaterally. No suspicious renal lesion. Bladder: Normal. Reproductive organs: Unremarkable. Stomach, small bowel, and large bowel: Stomach, small bowel and large bowel are normal in caliber. No evidence of bowel obstruction. No acute inflammatory process of the bowel. Scattered isolated diverticula of the descending and sigmoid colon without evidence of diverticulitis. Appendix: Normal. Peritoneum and retroperitoneum: No ascites or pneumoperitoneum. No acute omental or mesenteric lesions. Unchanged lobulated enhancing soft tissue lesion inferior to the left hemidiaphragm measuring approximately 1.2 cm. (/201). Lymph nodes: No enlarged lymph nodes. Blood vessels: Mild vascular calcifications but no aneurysm. No evidence of venous thrombosis. Abdominal and pelvic wall: Small bilateral fat-containing hernias, right greater than left. Bones: No acute abnormality. IMPRESSION: 1. No acute process identified in the abdomen or pelvis. 2. Unchanged enhancing soft tissue density in the left upper quadrant adjacent to the left hemidiaphragm. The most likely etiology, given the lobulated appearance and presence the left upper quadrant, is a small amount of accessory splenic tissue, however definitive etiology remains indeterminate. In the absence of other known history of malignancy this is most likely benign. Consider repeat follow-up CT in 3-6 months. Alternatively if definitive characterization is desired nonemergent MRI can be considered versus nuclear medicine heat damaged RBC scan. WSN: [id number] Ordering Physician: Benny Castillo Dictated By: Terrance Richardson MD Dictated Date/Time: 06/15/22 11:16 a Reviewed By: Terrance Richardson MD Signed By: Terrance Richardson MD Signed Date/Time: 06/15/22 11:16 am Transcribed By: ARON Transcribed Date/Time: 06/15/22 10:58 am * Exam Date Time Procedure Performing Provider Status 06/15/22 10:03 AM Chest 2 Views Frontal and Lat Lilibeth Andrews; Auth (Verified) Notes: (Chest 2 Views Frontal and Lat) Reason For Exam: Shortness of Breath, Fever;Other: RESULT: Chest 2 Views Frontal and Lat Chest 2 Views Frontal and Lat HX OF PRESENT ILLNESS: Pt reports he was here for 10 hrs in [place]. Pt reports he is having ongoing upper abdominal pain with reports tender armpits , pt also c o just not feeling well. Pt reports upper abdominal pain feels like he has a turkey in his stomach; Reason: Other:; Shortness of Breath, Fever; Clinical Question(s): Pneumonia; Order Comment: pt not ready at 0930am / Pneumonia COMPARISON: 05/25/2022 FINDINGS: LINES AND TUBES: None. LUNGS AND PLEURA: Clear lungs. Normal pulmonary vascularity. No pleural effusion. No pneumothorax. HEART, MEDIASTINUM AND CATE: Heart is normal in size. Normal mediastinal and hilar contour. BONES AND SOFT TISSUES: No acute abnormality. IMPRESSION: No evidence of acute abnormality. WSN: [id number] Ordering Physician: Benny Castillo Dictated By: Dexter Domínguez MD Dictated Date/Time: 06/15/22 10:09 a Reviewed By: Dexter Domínguez MD Signed By: Dexter Domínguez MD Signed Date/Time: 06/15/22 10:09 am Transcribed By: ARON Transcribed Date/Time: 06/15/22 10:08 am * Exam Date Time Procedure Performing Provider Status 06/14/22 7:36 PM US RUQ Bonita Hooper; Wale (V erified) Notes: (US RUQ) Reason For Exam: Abdominal Pain;Other: RESULT: US RUQ PROCEDURE: US RUQ INDICATION: 52 years old Male with Hx of Present Illness: Pt reports he was here for 10 hrs in [place]. Pt reports he is having ongoing upper abdominal pain with reports tender armpits , pt also c o just not feeling well. Pt reports upper abdominal pain feels like he has a turkey in his stomach; Reason:Other:; Abdominal Pain; Clinical Question(s): Cholecystitis. COMPARISON: 05/25/2022. Correlation is made with CT abdomen/pelvis dated 05/23/2022. TECHNIQUE: Grayscale and color Doppler abdominal ultrasound. FINDINGS: Liver: Normal in size and contour. Normal echogenicity. No focal lesion is seen. Gallbladder: Normal wall thickness. No gallstones. Sonographic Walker's sign is absent. No pericholecystic fluid is present. Biliary Tree:No evidence of intra or extrahepatic biliary ductal dilatation. Common bile duct measures 0.5 cm. Pancreas: Not visualized due to overlying bowel gas. Right: Ptotic right kidney located in right lower quadrant. Mildly prominent extrarenal pelvis, similar in appearance compared to recent CT. No focal lesion is seen. The right kidney measures 9.6 cm in length. Peritoneal fluid: No evidence of ascites. IMPRESSION: 1. No evidence of cholelithiasis, acute cholecystitis or biliary ductal dilatation. Thank you for allowing me to participate in the care of this patient. WSN: [id number] Ordering Physician: Leonardo Morales Dictated By: Veronika Kern MD Dictated Date/Time: 06/14/22 7:55 pm Reviewed By: Veronika Kern MD Signed By: Veronika Kern MD Signed Date/Time: 06/14/22 7:55 pm Transcribed By: ARON Transcribed Date/Time: 06/14/22 7:52 pm Vital Signs Most recent to oldest [Reference Range]: 1 2 3 Height 180 cm (06/14/22 11:47 PM) 180 cm (06/14/22 5:31 PM) 180 cm (06/14/22 5:31 PM) Weight 92.7 kg (06/14/22 11:47 PM) 92.7 kg (06/14/22 5:31 PM) 92.7 kg (06/14/22 5:31 PM) Oxygen Saturation [94-100 %] 98 % (06/15/22 12:18 PM) 97 % (06/15/22 9:20 AM) 99 % (06/15/22 7:45 AM) Pulse Rate [55-90 bpm] 69 bpm (06/15/22 12:18 PM) 71 bpm (06/15/22 9:20 AM) 64 bpm (06/15/22 7:45 AM) Body Mass Index [18.5-24.99 kg/m2] 28.61 kg/m2 *H* (06/14/22 5:31 PM) Blood Pressure [90-138/55-84 mm Hg] 140/90mm Hg *H* (06/15/22 12:18 PM) 145/98mm Hg *H* (06/15/22 9:20 AM) 148/95mm Hg *H* (06/15/22 7:45 AM) Respiratory Rate [16-30 br/min] 18 br/min (06/15/22 12:18 PM) 18 br/min (06/15/22 9:20 AM) 16 br/min (06/14/22 11:47 PM) Temperature [96.8-100.4 DegF] 98.4 DegF (06/15/22 12:18 PM) 98.5 DegF (06/15/22 9:20 AM) 97.8 DegF (06/15/22 7:45 AM) Mode of Delivery (Oxygen) Room air (06/15/22 12:18 PM) Room air (06/15/22 9:20 AM) Room air (06/15/22 7:45 AM) Blood pressure sites Arm, right (06/15/22 12:18 PM) Arm, right (06/15/22 9:20 AM) Arm, right (06/15/22 7:45 AM) Temperature Route Oral (06/15/22 9:20 AM) Oral (06/15/22 7:45 AM) Oral (06/15/22 5:13 AM) Dry Weight 92.7 kg (06/14/22 11:47 PM) 92.7 kg (06/14/22 5:31 PM) 92.7 kg (06/14/22 5:31 PM) Social History Social History Type Response Smoking Status 10 or more cigarette s (1/2 pack or more)/day in last 30 days entered on: 05/07/22 Sex EKG study * Event Display: ECG 12-Lead Authored Date: Please click on pdf link to open report * Event Display: ECG 12-Lead Authored Date: Ventricular Rate: 66 BPM Atrial Rate: 66 BPM P-R Interval: 146 ms QRS Duration: 102 ms Q-T Interval: 408 ms QTC Calculation(Bazett): 427 ms P [place]: 60 degrees R [place]: 18 degrees T [place]: 53 degrees Normal sinus rhythm Normal ECG When compared with ECG of 14-JUN-2022 18:43, MANUAL COMPARISON REQUIRED, DATA IS UNCONFIRMED Confirmed by CHRISTO CURRY MD ([id number]) on 06/15/2022 9:55:53 AM [place]: CHRISTO CURRY MD * Event Display: ECG 12-Lead Authored Date: Please click on pdf link to open report * Event Display: ECG 12-Lead Authored Date: Ventricular Rate: 70 BPM Atrial Rate: 70 BPM P-R Interval: 144 ms QRS Duration: 98 ms Q-T Interval: 398 ms QTC Calculation(Bazett): 429 ms P [place]: 55 degrees R [place]: 14 degrees T [place]: 49 degrees Normal sinus rhythm Normal ECG When compared with ECG of 13-JUN-2022 20:26, No significant change was found Confirmed by NEETU GARCIA () on 06/15/2022 11:54:44 AM [place]: NEETU GARCIA US Abdomen RUQ * BHSPowerscribe , CIS S: TRANSCRIBE Beni Kern MDrim: VERIFY Event Display: Result: Authored Date: PROCEDURE: US RUQ INDICATION: 52 years old Male with Hx of Present Illness: Pt reports he was here for 10 hrs in [place]. Pt reports he is having ongoing upper abdominal pain with reports tender armpits , pt also c o just not feeling well. Pt reports upper abdominal pain feels like he has a turkey in his stomach; Reason:Other:; Abdominal Pain; Clinical Question(s): Cholecystitis. COMPARISON: 05/25/2022. Correlation is made with CT abdomen/pelvis dated 05/23/2022. TECHNIQUE: Grayscale and color Doppler abdominal ultrasound. FINDINGS: Liver: Normal in size and contour. Normal echogenicity. No focal lesion is seen. Gallbladder: Normal wall thickness. No gallstones. Sonographic Walker's sign is absent. No pericholecystic fluid is present. Biliary Tree:No evidence of intra or extrahepatic biliary ductal dilatation. Common bile duct measures 0.5 cm. Pancreas: Not visualized due to overlying bowel gas. Right: Ptotic right kidney located in right lower quadrant. Mildly prominent extrarenal pelvis, similar in appearance compared to recent CT. No focal lesion is seen. The right kidney measures 9.6 cm in length. Peritoneal fluid: No evidence of ascites. IMPRESSION: 1. No evidence of cholelithiasis, acute cholecystitis or biliary ductal dilatation. Thank you for allowing me to participate in the care of this patient. WSN: [id number] Ordering Physician: Leonardo Morales Dictated By: Veronika Kern MD Dictated Date/Time: 06/14/22 7:55 pm Reviewed By: Veronika Kern MD Signed By: Veronika Kern MD Signed Date/Time: 06/14/22 7:55 pm Transcribed By: ARON Transcribed Date/Time: 06/14/22 7:52 pm Note * GIANSPowerscgary , CIS S: TRANSCRIBE Dexter Domínguez MD: VERIFY Event Display: Result: Authored Date: [id number] Chest 2 Views Frontal and Lat HX OF PRESENT ILLNESS: Pt reports he was here for 10 hrs in [place]. Pt reports he is having ongoing upper abdominal pain with reports tender armpits , pt also c o just not feeling well. Pt reports upper abdominal pain feels like he has a turkey in his stomach; Reason: Other:; Shortness of Breath, Fever; Clinical Question(s): Pneumonia; Order Comment: pt not ready at 0930am / Pneumonia COMPARISON: 05/25/2022 FINDINGS: LINES AND TUBES: None. LUNGS AND PLEURA: Clear lungs. Normal pulmonary vascularity. No pleural effusion. No pneumothorax. HEART, MEDIASTINUM AND CATE: Heart is normal in size. Normal mediastinal and hilar contour. BONES AND SOFT TISSUES: No acute abnormality. IMPRESSION: No evidence of acute abnormality. WSN: [id number] Ordering Physician: Benny Castillo Dictated By: Dexter Domínguez MD Dictated Date/Time: 06/15/22 10:09 a Reviewed By: Dexter Domínguez MD Signed By: Dexter Domínguez MD Signed Date/Time: 06/15/22 10:09 am Transcribed By: ARON Transcribed Date/Time: 06/15/22 10:[address] Abdomen and Pelvis W contrast IV * BHSPowergallito , CIS S: TRANSCRIBE Terrance Richardson MD: VERIFY Event Display: Result: Authored Date: [id number] CT Abd/Pelvis W/ IV Contrast Only Hx of Present Illness: . Pt reports he is having ongoing upper abdominal pain with reports tender armpits , pt also c o just not feeling well. Pt reports upper abdominal pain feels like he has a turkey in his stomach; Reason: Other:; LLQ abdominal pain; Clinical Question(s): Diverticulitis; Order Comment: TECHNIQUE: Spiral CT through the abdomen and pelvis with IV contrast formatted in 3 planes. 100 cc of Omnipaque 300 was administered intravenously. This study was performed without oral contrast. Weight-based protocol using automatic tube modulation was used to optimize exposure parameters. CTDIvol Body: 15.50 mGy, DLP Body: 832 mGy*cm. COMPARISON: CT abdomen pelvis 05/23/2022 FINDINGS: Hat Sizer View Findings, Lines and Tubes: None. Visualized Chest: Lung bases are clear. No pleural effusion. The heart is normal in size. No pericardial effusion. Diaphragm: Normal. Liver: Normal. Gallbladder: No CT evidence of gallbladder pathology. Bile ducts: No biliary ductal dilation. Spleen: Normal. Accessory splenic tissue is incidentally noted. Pancreas: Normal. Adrenal glands: Unchanged flattening the right adrenal gland related to a right pelvic kidney. Normal left adrenal gland. 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 Nohydronephrosis bilaterally. No suspicious renal lesion. Bladder: Normal. Reproductive organs: Unremarkable. Stomach, small bowel, and large bowel: Stomach, small bowel and large bowel are normal in caliber. No evidence of bowel obstruction. No acute inflammatory process of the bowel. Scattered isolated diverticula of the descending and sigmoid colon without evidence of diverticulitis. Appendix: Normal. Peritoneum and retroperitoneum: No ascites or pneumoperitoneum. No acute omental or mesenteric lesions. Unchanged lobulated enhancing soft tissue lesion inferior to the left hemidiaphragm measuring approximately 1.2 cm. (). Lymph nodes: No enlarged lymph nodes. Blood vessels: Mild vascular calcifications but no aneurysm. No evidence of venous thrombosis. Abdominal and pelvic wall: Small bilateral fat-containing hernias, right greater than left. Bones: No acute abnormality. IMPRESSION: 1. No acute process identified in the abdomen or pelvis. 2. Unchanged enhancing soft tissue density in the left upper quadrant adjacent to the left hemidiaphragm. The most likely etiology, given the lobulated appearance and presence the left upper quadrant, is a small amount of accessory splenic tissue, however definitive etiology remains indeterminate. In the absence of other known history of malignancy this is most likely benign. Consider repeat follow-up CT in 3-6 months. Alternatively if definitive characterization is desired nonemergent MRI can be considered versus nuclear medicine heat damaged RBC scan. WSN: [id number] Ordering Physician: Benny Castillo Dictated By: Terrance Richardson MD Dictated Date/Time: 06/15/22 11:16 a Reviewed By: Terrance Richardson MD Signed By: Terrance Richardson MD Signed Date/Time: 06/15/22 11:16 am Transcribed By: ARON Transcribed Date/Time: 06/15/22 10:58 am Patient Care team information Care Team Personnel Name: Ana CROWELL, Nuvia Chavira Position: [facility] RN Member Role: Primary Care Nurse Name: Pepe Dias Position: [facility] Outreach Member Role: PCP Address: Address: [address] [place] [address]- Name: *[facility], ED Attending Position: [facility] ED Attendings Patient Name: Debbie Hernández RN Position: [facility] ED RN W/OE and Tasks Member Role: Patient Care Provider Name: Benny Castillo MD Position: [facility] ED Medicine MD Member Role: Admitting Physician Address: Address: [address] [place] [address] Department [place] [address]- Name: Chelsea Morrow Position: [facility] ED [facility] Member Role: Patient Care Provider Care Team Related Persons Name: ABRAHAM NARVAEZ Address: home [address] [place] [address]
--- OUTSIDE RECORDS SUMMARY | 2023-06-10 18:24 | XMS_ITS | Continuity of Care Document ---
Author Name Unknown Organization [facility] ter Address [address] [place] [address]- Care Team Providers Care Back Tender Paper Machine Name Role Phone Pepe Dias Primary Care Physician Encounter [facility] [place] Date(s): 12/18/22 - 12/19/[address] [address]- Encounter Diagnosis Abdominal pain(Final) - 12/18/22 Discharge Disposition: A-D/C Home Attending Physician: Dexter Vivas MD Admitting Physician: Dexter Vivas MD Referring Physician: Not on Staff, Referring [...] Range]: 1 2 3 Height 180 cm (12/19/22 12:23 AM) 180 cm (12/18/22:19 PM) Oxygen Saturation [94-100 %] 96 % (12/19/22:23 AM) 97 % (12/18/22:19 PM) 97 % (12/18/22 6:16 PM) Pulse Rate [55-90 bpm] 62 bpm (12/19/22:23 AM) 87 bpm (12/18/22:19 PM) 75 bpm (12/18/22:16 PM) Blood Pressure [90-138/55-84 mm Hg] 122/73mm Hg (12/19/22 12:23 AM) 130/87mm Hg (12/18/22:19 PM) Respiratory Rate [16-30 br/min] 20 br/min (12/19/22:23 AM) 18 br/min (12/18/22:19 PM) 18 br/min (12/18/22 6:16 PM) Temperature [96.8-100.4 DegF] 98.8 DegF (12/19/22: AM) 98.3 DegF (12/18/22:19 PM) Mode of Delivery (Oxygen) Room air (12/19/22 12:23 AM) Room air (12/18/22 6:19 PM) Room air (12/18/22 6:16 PM) Blood pressure sites Arm, left (12/19/22 12:23 AM) Arm, left (12/18/22 6:19 PM) Temperature Route Oral (12/19/22 12:23 AM) Oral (12/18/22 6:19 PM) Dry Weight 82 kg (12/19/22 12:23 AM) 82 kg (12/18/22 6:19 PM) Dry Weight Obtained Via Patient/family s tated (12/18/22 6:19 PM) Social History Social History Type Response Smoking Status 10 or more cigarette s (1/2 pack or more)/day in last 30 days entered on: 05/07/22 Sex EKG study * Event Display: EKG Authored Date: * Event Display: ECG 12-Lead Authored Date: Please click on pdf link to open report * Event Display: ECG 12-Lead Authored Date: Ventricular Rate: 82 BPM Atrial Rate: 82 BPM P-R Interval: 136 ms QRS Duration: 94 ms Q-T Interval: 366 ms QTC Calculation(Bazett): 427 ms P [place]: 55 degrees R [place]: 41 degrees T [place]: 58 degrees Normal sinus rhythm Normal ECG When compared with ECG of 16-DEC-2022 18:11, No significant change was found Confirmed by JUAN SAMS MD ([id number]) on 12/19/2022 8:29:33 AM [place]: JUAN SAMS MD Note * Sangeetha RENEE, Dexter Dixon: PERFORM Event Display: Patient Education Leaflets Authored Date: [id number] Unknown Causes of Abdominal Pain(Adult) ?? [id number] Unknown Causes of Abdominal Pain(Adult) The exact [...] period ?? Last Reviewed Date: 2021 ?? [id number] [employer]. All rights reserved. This information is not intended as a substitute for professional medical care. Always follow your healthcare professional's instructions. ?? Patient Care team information Care Team Personnel Name: Nuvia Perez RN Position: [facility] RN Member Role: Primary Care Nurse Name: Dilcia Hartmann Position: [facility] RN Member Role: Primary Care Nurse Name: Kavita Laguna RN Position: [facility] RN Member Role: Primary Care Nurse Name: Pepe Dias Position: [facility] Outreach Member Role: PCP Address: Address: [address] [place] [id number] Name: Yenny Vergara Position: [facility] RN Member Role: Primary Care Nurse Name: Dexter Vivas MD Position: [facility] ED Medicine MD Member Role: ED Attending Physician Address: Address: [address] [place] [address] [place] [address]- [place] Name: Renetta Castaneda RN Position: [facility] ED RN W/OE and Tasks Member Role: Patient Care Provider Name: Peter Hu Position: [facility] ED [facility] Member Role: Sprayer Operator Care Team Related Persons Name: ABRAHAM NARVAEZ Address: home [address] [place] [address]
--- OUTSIDE RECORDS SUMMARY | 2023-06-10 18:24 | XMS_ITS | Continuity of Care Document ---
Author Name Unknown Organization [facility] ter Address [address] [place] [id number]- Care Team Providers Care Erp Analyst Name Role Phone Lilly Andrea NP Primary Care Physician [phone] Encounter [facility] [place] AC[place] R [id number] Date(s): 06/13/22 - 06/14/[address] [address]- Discharge Disposition: A-D/C Walkout Attending Physician: Not [...] 04/02/22 9:51:00 EST, Route to Pharmacy Electronically, [facility], Partial fill upon patient request if the prescription is for a schedule II opioid... Start Date: 04/02/22 Stop Date: 06/01/22 Status: Ordered Cardizem CD 120 mg/24 hours oral capsule, extended release 120 mg, 1, capsule, By Mouth, Daily, # 30 capsule, Refills 1, Tot. Refills 1, Maintenance, 239:51:00 EST, Route to Pharmacy Electronically, [facility], Partial fill upon patient [...] St atus Informant Atrial fibrillation Confirmed Active Vital Signs Most recent to oldest [Reference Range]: 1 2 3 Height 180 cm (06/13/22 9:36 PM) Weight 93 kg (06/13/22 9:36 PM) Oxygen Saturation [94-100 %] 97 % (06/13/22 11:41 PM) 98 % (06/13/22 8:17 PM) 98 % (06/13/22 7:52 PM) Pulse Rate [55-90 bpm] 76 bpm (06/13/22 11:41 PM) 101 bpm *H* (06/13/22 8:17 PM) 115 bpm *H* (06/13/22 7:52 PM) Blood Pressure [90-138/55-84 mm Hg] 116/77mm Hg (06/13/22 11:41 PM) 125/82mm Hg (06/13/22 8:17 PM) Temperature [96.8-100.4 DegF] 98.2 DegF (06/13/22 11:41 PM) 98.4 DegF (06/13/22 8:17 PM) Mode of Delivery (Oxygen) Room air (06/13/22 11:41 PM) Room air (06/13/22 8:17 PM) Room air (06/13/22 7:52 PM) Blood pressure sites Arm, left (06/13/22 8:17 PM) Temperature Route Oral (06/13/22 11:41 PM) Oral (06/13/22 8:17 PM) Dry Weight 93 kg (06/13/22 9:36 PM) Social History Social History Type Response Smoking Status 10 or more cigarette s (1/2 pack or more)/day in last 30 days entered on: 05/07/22 Sex EKG study * Event Display: ECG 12-Lead Authored Date: Please click on pdf link to open report * Event Display: ECG 12-Lead Authored Date: Ventricular Rate: 95 BPM Atrial Rate: 95 BPM P-R Interval: 132 ms QRS Duration: 94 ms Q-T Interval: 350 ms QTC Calculation(Bazett): 439 ms P [place]: 58 degrees R [place]: 38 degrees T [place]: 53 degrees Normal sinus rhythm Normal ECG When compared with ECG of 05-JUN-2022 20:08, No significant change was found Confirmed by AMANUEL RIVERA MD ([id number]) on 06/14/2022 8:54:49 AM [place]: AMANUEL RIVERA MD Patient Care team information Care Team Personnel Name: Ana CROWELL, Nuvia Chavira Position: S RN Member Role: Primary Care Nurse Name: Lilly Andrea NP Position: Reference Physician Member Role: PCP Address: Address: [address] [place] [address]- Care Team Related Persons Name: ABRAHAM NARVAEZ Address: home [address] [place] [address]
--- OUTSIDE RECORDS SUMMARY | 2023-06-10 18:24 | XMS_ITS | Continuity of Care Document ---
Author Name Unknown Organization [facility] ter Address [address] [place] [id number]- Care Team Providers Care Rn Emergency Room Name Role Phone Pepe Dias Primary Care Physician [facility] [place] Date(s): 12/16/22 - 12/17/[address] [address]- Encounter Diagnosis Abdominal pain(Final) - 12/17/22 Discharge Disposition: A-D/C Home Attending Physician: Juma Koch MD Admitting Physician: Juma Koch MD Referring Physician: Not on Staff, Referring [...] Exam Date Time Procedure Performing Provider Status 12/16/22 9:30 PM US Doppler Ext Lower Venous Left Beth son Jigna; Auth (Verified) Notes: (US Doppler Ext Lower Venous Left) Reason For Exam: Pain in limb;Other: RESULT: US Doppler Ext Lower Venous Left US Doppler Ext Lower Venous Left Hx of Present Illness: chest and abd pain x 3 days; Reason: Other:; Pain in limb; Clinical Question(s): Thrombus COMPARISON: None IMAGING TECHNIQUE: [...] femoral vein: Patent. No thrombosis. OTHER FINDINGS: IMPRESSION: No evidence of deep venous thrombosis. WSN: [id number] Ordering Physician: Marie Lancaster Dictated By: Dexter Prescott MD Dictated Date/Time: 12/16/22 9:42 pm Reviewed By: Dexter Prescott MD Signed By: Dexter Prescott MD Signed Date/Time: 12/16/22 9:42 pm Transcribed By: ARON Transcribed Date/Time: 12/16/22 9:42 pm * Exam Date Time Procedure Performing Provider Status 12/16/22 9:[address] Cervical Spine W/O Contrast Stupak , Jonathan; Auth (Verified) Notes: (CT Cervical Spine W/O Contrast) Reason For Exam: Neck trauma, dangerous injury mechanism;Other: RESULT: CT Cervical Spine W/O Contrast CT Head/Brain W/O Contrast, CT Cervical Spine W/O Contrast INDICATION: Hx of Present Illness: chest and abd pain x 3 days; Reason: Trauma; Clinical Question(s): Hematoma; Order Comment: TECHNIQUE: Noncontrast head CT using axial technique was reconstructed in axial and coronal planes.Noncontrast spiral CT through the cervical spine was formatted in 3 planes. Automatic tube modulation was used for the cervical spine and iterative dose reconstruction was used for both the head and cervical spine to optimize scan parameters and image quality. CTDIvol Body: 15.15 mGy, DLP Body: 359 mGy*cm. CTDIvol Head: 41.54 mGy, DLP Head: 748 mGy*cm. COMPARISON: None. FINDINGS: Sediment Remediation Consultant View Findings, Lines and Tubes: None. BRAIN AND EXTRA-AXIAL SPACES: No parenchymal hemorrhage, midline shift, or mass effect. Mclean-white matter differentiation is wellpreserved. No acute infarct. Negative insular ribbon sign. Atherosclerotic vascular calcification of the carotid arteries but negative hyperdense vessel sign. Ventricles, sulci, and basilar cisterns are normal. No white matter lesions. No subarachnoid hemorrhage. No subdural or epidural collection. CALVARIUM, SKULL BASE, AND SOFT TISSUES: No fractures or suspicious bony lesions. The paranasal sinuses and mastoid air cells are clear. Visualized orbits and globes are intact. The extracranial soft tissues are unremarkable. CERVICAL SPINE: No fracture. No acute osseous abnormalities. Normal alignment. No locked or perched facet. Mild multilevel degenerative disc space narrowing andend plate irregularity. OTHER BONES: No acute abnormality. CERVICAL SOFT TISSUES AND LUNG APICES: Normal soft tissues. Visualized lung apices are clear. Normal thyroid.Mild mucosal debris in trachea. IMPRESSION: No acute abnormality of the head or cervical spine. I have personally reviewed the images and I agree with this report. WSN: [id number] Ordering Physician: Marie Lancaster Dictated By: Tye Adams MD Dictated Date/Time: 12/16/22 9:53 pm Reviewed By: Nathaniel Lanier MD Signed By: Nathaniel Lanier MD Signed Date/Time: 12/16/22 9:58 pm Transcribed By: ARON Transcribed Date/Time: 12/16/22 9:37 pm * Exam Date Time Procedure Performing Provider Status 12/16/22 9:[address] Head/Brain W/O Contrast Stupak , Ol eg; Auth (Verified) Notes: (CT Head/Brain W/O Contrast) Reason For Exam: Trauma RESULT: CT Head/Brain W/O Contrast CT Head/Brain W/O Contrast, CT Cervical Spine W/O Contrast INDICATION: Hx of Present Illness: chest and abd pain x 3 days; Reason: Trauma; Clinical Question(s): Hematoma; Order Comment: TECHNIQUE: Noncontrast head CT using axial technique was reconstructed in axial and coronal planes.Noncontrast spiral CT through the cervical spine was formatted in 3 planes. Automatic tube modulation was used for the cervical spine and iterative dose reconstruction was used for both the head and cervical spine to optimize scan parameters and image quality. CTDIvol Body: 15.15 mGy, DLP Body: 359 mGy*cm. CTDIvol Head: 41.54 mGy, DLP Head: 748 mGy*cm. COMPARISON: None. FINDINGS: Sediment Remediation Consultant View Findings, Lines and Tubes: None. BRAIN AND EXTRA-AXIAL SPACES: No parenchymal hemorrhage, midline shift, or mass effect. Mclean-white matter differentiation is wellpreserved. No acute infarct. Negative insular ribbon sign. Atherosclerotic vascular calcification of the carotid arteries but negative hyperdense vessel sign. Ventricles, sulci, and basilar cisterns are normal. No white matter lesions. No subarachnoid hemorrhage. No subdural or epidural collection. CALVARIUM, SKULL BASE, AND SOFT TISSUES: No fractures or suspicious bony lesions. The paranasal sinuses and mastoid air cells are clear. Visualized orbits and globes are intact. The extracranial soft tissues are unremarkable. CERVICAL SPINE: No fracture. No acute osseous abnormalities. Normal alignment. No locked or perched facet. Mild multilevel degenerative disc space narrowing andend plate irregularity. OTHER BONES: No acute abnormality. CERVICAL SOFT TISSUES AND LUNG APICES: Normal soft tissues. Visualized lung apices are clear. Normal thyroid.Mild mucosal debris in trachea. IMPRESSION: No acute abnormality of the head or cervical spine. I have personally reviewed the images and I agree with this report. WSN: [id number] Ordering Physician: Tonny Marie L Dictated By: Tye Adams MD Dictated Date/Time: 12/16/22 9:53 pm Reviewed By: Nathaniel Lanier MD Signed By: Nathaniel Lanier MD Signed Date/Time: 12/16/22 9:58 pm Transcribed By: ARON Transcribed Date/Time: 12/16/22 9:37 pm Vital Signs Most recent to oldest [Reference Range]: 1 2 3 Height 180 cm (12/16/22 6:47 PM) 180 cm (12/16/22 6:03 PM) Oxygen Saturation [94-100 %] 99 % (12/17/22 7:58 AM) 99 % (12/17/22 5:45 AM) 96 % (12/17/22 3:04 AM) Pulse Rate [55-90 bpm] 63 bpm (12/17/22 7:58 AM) 63 bpm (12/17/22 5:45 AM) 63 bpm (12/17/22 3:04 AM) Blood Pressure [90-138/55-84 mm Hg] 114/80mm Hg (12/17/22 7:58 AM) 125/89mm Hg (12/17/22 5:45 AM) 116/78mm Hg (12/17/22 3:04 AM) Respiratory Rate [16-30 br/min] 18 br/min (12/16/22 6:03 PM) Temperature [96.8-100.4 DegF] 97.8 DegF (12/17/22 7:58 AM) 97.9 DegF (12/17/22 5:45 AM) 98.5 DegF (12/17/22 3:04 AM) Mode of Delivery (Oxygen) Room air (12/17/22 7:58 AM) Room air (12/17/22 5:45 AM) Room air (12/17/22 3:04 AM) Blood pressure sites Arm, left (12/17/22 7:58 AM) Arm, left (12/17/22 5:45 AM) Arm, left (12/17/22 3:04 AM) Temperature Route Oral (12/17/22 7:58 AM) Oral (12/17/22 5:45 AM) Oral (12/17/22 3:04 AM) Dry Weight 82 kg (12/16/22 6:47 PM) 82 kg (12/16/22 6:03 PM) Dry Weight Obtained Via Patient/family s tated (12/16/22 6:03 PM) Social History Social History Type Response [...] BPM Atrial Rate: 69 BPM P-R Interval: 156 ms QRS Duration: 100 ms Q-T Interval: 396 ms QTC Calculation(Bazett): 424 ms P [place]: 61 degrees R [place]: 20 degrees T [place]: 54 degrees Normal sinus rhythm Normal ECG When compared with ECG of 10-DEC-2022 12:59, No significant change was found Confirmed by CHRISTO CURRY MD ([id number]) on 12/17/2022 7:49:59 AM [place]: CHRISTO CURRY MD Note * Chelo DIAZ, Dallin: PERFORM Event Display: Patient Education Leaflets Authored Date: [id number] Unknown Causes of Abdominal Pain(Adult) ?? [id number] Unknown Causes of Abdominal Pain(Adult) The exact [...] period ?? Last Reviewed Date: 2021 ?? [id number] [employer]. All rights reserved. This information is not intended as a substitute for professional medical care. Always follow your healthcare professional's instructions. ?? Patient Care team information Care Team Personnel Name: Nuvia Perez RN Position: [facility] RN Member Role: Primary Care Nurse Name: Dilcia Hartmann Position: [facility] RN Member Role: Primary Care Nurse Name: Kavita Laguna RN Position: [facility] RN Member Role: Primary Care Nurse Name: Pepe Dias Position: [facility] Outreach Member Role: PCP Address: Address: [address] [place] [id number]- Name: Yenny Vergara Position: [facility] RN Member Role: Primary Care Nurse Name: Romeo Desir Position: [facility] ED TA SMITA Name: Chelo DIAZ, Dallin Position: [facility] Resident Member Role: ED Resident Address: Address: [address] [place] [address] [place] [address]- Name: Dang Ray RN Position: [facility] ED RN W/OE and Tasks Member Role: Patient Care Provider Name: Juma Koch MD Position: [facility] ED Medicine MD Member Role: Admitting Physician Address: Address: [address] [place] [id number]- Name: Gary Viramontes RN Position: [facility] ED RN W/OE and Tasks Member Role: Patient Care Provider Care Team Related Persons Name: ABRAHAM NARVAEZ Address: home [address] [place] [address]
--- OUTSIDE RECORDS SUMMARY | 2023-06-10 18:24 | XMS_ITS | Continuity of Care Document ---
Author Name Unknown Organization [facility] ter Address [address] [place] [id number]- Care Team Providers Care Line Manager Name Role Phone Pepe Dias Primary Care Physician Encounter [facility] Date(s): 06/30/22 - 06/30/[address] [address]- Encounter Diagnosis Chest pressure(Final) - 06/30/22 Arm paresthesia, left(Final) - 06/30/22 Anxiety(Final) - 06/30/22 Discharge Disposition: A-D/C Home Attending Physician: Kwadwo Melgar MD Admitting Physician: Kwadwo Melgar MD Referring Physician: Not on Staff, [...] 04/02/22 9:51:00 EST, Route to Pharmacy Electronically, [facility], Partial fill upon patient request if the prescription is for a schedule II opioid... Start Date: 04/02/22 Stop Date: 06/01/22 Status: Ordered Cardizem CD 120 mg/24 hours oral capsule, extended release 120 mg, 1, capsule, By Mouth, Daily, # 30 capsule, Refills 1, Tot. Refills 1, Maintenance, 239:51:00 EST, Route to Pharmacy Electronically, [facility], Partial fill upon patient request if the prescription is for a schedule II opi... Start Date: 04/02/22 Stop Date: 06/01/22 Status: Ordered famotidine 20 mg oral tablet 20 mg, 1, tablet, By Mouth, 2 times a day, # 180 tablet, Refills 0, Tot. Refills 0, Maintenance, 06/23/22 11:07:00 EDT, Route to Pharmacy Electronically, [facility][id number], Partial fill upon patient request if the prescription is for a sched... Start Date: 06/23/22 Status: Ordered ondansetron 4 mg oral tablet, disintegrating 1 tablet = 4 mg, By Mouth, Every 6 hours, PRN as needed for nausea/vomiting, # 12 tablet, 0 Refills, Maintenance, 06/15/22 11:59:00 EDT, DIS Tablet, [facility] #[id number], Partial fill upon patient request if the [...] Exam Date Time Procedure Performing Provider Status 06/30/22 5:[address] Angio Abdomen Colon , Treva; Auth (Verified) Notes: (CT Angio Abdomen) Reason For Exam: Renal artery dissection suspected;Other: RESULT: CT Angio Abdomen EXAMINATION: CT Angio Chest, CT Angio Abdomen INDICATION: Midsternal CP and SOB x2 days, shotting pain into bilateral inner arm, reports left sided neck stiffness- resolved at this time, lightheadedness; Reason: Aortic disease, nontraumatic; Clinical Question(s): Aortic Dissection TECHNIQUE: An initial noncontrast CT of the chest was performed. Spiral CTA of the chest and abdomen was performed after rapid IV contrast administration with cardiac gating triggered by an SUYAPA on the aorta. Images are formatted in multiple planes using 2-D multiplanar and 3-D maximum intensity projection. Obliqued images through the aortic root were reconstructed. 100 cc of Omnipaque 300 was administered intravenously. Weight-based protocol using automatic tube modulation was used to optimize exposure parameters. CTDIvol Body: 10.26 mGy, DLP Body: 675 mGy*cm. COMPARISONS: CT abdomen/pelvis 06/15/2022 ANGIOGRAPHIC FINDINGS: No aortic dissection or aneurysm. Normal three vessel arch without branch vessel stenosis. Very mild vascular calcifications. Pulmonary arteries are normal in caliber. No evidence of central pulmonary embolism on this study performed without dedicated technique. NON-ANGIOGRAPHIC FINDINGS: Package Dyeing Machine Operator View Findings, Lines and Tubes: None. Trachea and Airways: Patent without evidence of tracheal or endobronchial lesion. Lungs and Pleura: Mild dependent atelectasis. No effusion or pneumothorax. Mediastinum and abraham: No mass or hematoma. No mediastinal or hilar lymphadenopathy. No esophageal abnormality. Normal thyroid. Heart: Heart is normal in size. No pericardial effusion. No coronary arterial calcifications. Chest Wall Soft Tissues: Normal. Diaphragm : No significant abnormality. Liver: Normal. Gallbladder: No CT evidence of gallbladder pathology. Bile ducts: No biliary ductal dilation. Spleen: Normal. Accessory splenic tissue is incidentally noted. Pancreas: Normal. Adrenal glands: Normal. Kidneys and ureters: Ptotic right kidney located in the right mid abdomen with malrotation and mildhydronephrosis which could be related to a UPJ obstruction. Stomach, small bowel, and large bowel: Visualized stomach and bowel are normal. Peritoneum and retroperitoneum: No ascites or pneumoperitoneum. Unchanged lobulated enhancing soft tissue lesion inferior to the left hemidiaphragm measuring 1.1 cm (604:83). Lymph nodes: No enlarged lymph nodes. Abdominal wall: Tiny fat-containing umbilical hernia. Bones: No acute abnormality. IMPRESSION: No aortic aneurysm or dissection. 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 I have personally reviewed the images and I agree with this report. WSN: [id number] Ordering Physician: Janine De León Dictated By: Ileana Schaefer DO Dictated Date/Time: 06/30/22 5:58 pm Reviewed By: Deniz Concepcion MD Signed By: Deniz Concepcion MD Signed Date/Time: 06/30/22 6:03 pm Transcribed By: ARON Transcribed Date/Time: 06/30/22 5:34 pm * Exam Date Time Procedure Performing Provider Status 06/30/22 5:[address] Angio Chest Colon , Treva; Auth ( Verified) Notes: (CT Angio Chest) Reason For Exam: Aortic disease, nontraumatic;Other: RESULT: CT Angio Chest EXAMINATION: CT Angio Chest, CT Angio Abdomen INDICATION: Midsternal CP and SOB x2 days, shotting pain into bilateral inner arm, reports left sided neck stiffness- resolved at this time, lightheadedness; Reason: Aortic disease, nontraumatic; Clinical Question(s): Aortic Dissection TECHNIQUE: An initial noncontrast CT of the chest was performed. Spiral CTA of the chest and abdomen was performed after rapid IV contrast administration with cardiac gating triggered by an SUYAPA on the aorta. Images are formatted in multiple planes using 2-D multiplanar and 3-D maximum intensity projection. Obliqued images through the aortic root were reconstructed. 100 cc of Omnipaque 300 was administered intravenously. Weight-based protocol using automatic tube modulation was used to optimize exposure parameters. CTDIvol Body: 10.26 mGy, DLP Body: 675 mGy*cm. COMPARISONS: CT abdomen/pelvis 06/15/2022 ANGIOGRAPHIC FINDINGS: No aortic dissection or aneurysm. Normal three vessel arch without branch vessel stenosis. Very mild vascular calcifications. Pulmonary arteries are normal in caliber. No evidence of central pulmonary embolism on this study performed without dedicated technique. NON-ANGIOGRAPHIC FINDINGS: Package Dyeing Machine Operator View Findings, Lines and Tubes: None. Trachea and Airways: Patent without evidence of tracheal or endobronchial lesion. Lungs and Pleura: Mild dependent atelectasis. No effusion or pneumothorax. Mediastinum and abraham: No mass or hematoma. No mediastinal or hilar lymphadenopathy. No esophageal abnormality. Normal thyroid. Heart: Heart is normal in size. No pericardial effusion. No coronary arterial calcifications. Chest Wall Soft Tissues: Normal. Diaphragm : No significant abnormality. Liver: Normal. Gallbladder: No CT evidence of gallbladder pathology. Bile ducts: No biliary ductal dilation. Spleen: Normal. Accessory splenic tissue is incidentally noted. Pancreas: Normal. Adrenal glands: Normal. Kidneys and ureters: Ptotic right kidney located in the right mid abdomen with malrotation and mildhydronephrosis which could be related to a UPJ obstruction. Stomach, small bowel, and large bowel: Visualized stomach and bowel are normal. Peritoneum and retroperitoneum: No ascites or pneumoperitoneum. Unchanged lobulated enhancing soft tissue lesion inferior to the left hemidiaphragm measuring 1.1 cm (604:83). Lymph nodes: No enlarged lymph nodes. Abdominal wall: Tiny fat-containing umbilical hernia. Bones: No acute abnormality. IMPRESSION: No aortic aneurysm or dissection. 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 I have personally reviewed the images and I agree with this report. WSN: [id number] Ordering Physician: Janine De León Dictated By: Ileana Schaefer DO Dictated Date/Time: 06/30/22 5:58 pm Reviewed By: Deniz Concepcion MD Signed By: Deniz Concepcion MD Signed Date/Time: 06/30/22 6:03 pm Transcribed By: ARON Transcribed Date/Time: 06/30/22 5:34 pm * Exam Date Time Procedure Performing Provider Status 06/30/22 3:08 PM Chest 2 Views Frontal and Lat Kathie Ashford; Auth (Verified) Notes: (Chest 2 Views Frontal and Lat) Reason For Exam: Chest Pain;Other: RESULT: Chest 2 Views Frontal and Lat Chest 2 Views Frontal and Lat Reason: Other:; Chest Pain; Clinical Question(s): Other: COMPARISON: 06/15/2022 FINDINGS: LINES AND TUBES: None. LUNGS AND PLEURA: Clear lungs. Normal pulmonary vascularity. No pleural effusion. No pneumothorax. HEART, MEDIASTINUM AND ABRAHAM: Heart is normal in size. Normal mediastinal and hilar contour. BONES AND SOFT TISSUES: No acute abnormality. IMPRESSION: No acute abnormality. WSN: [id number] Ordering Physician: Ibrahima Child Dictated By: Chandler Khan MD Dictated Date/Time: 06/30/22 3:15 pm Reviewed By: Chandler Khan MD Signed By: Chandler Khan MD Signed Date/Time: 06/30/22 3:15 pm Transcribed By: ARON Transcribed Date/Time: 06/30/22 3:14 pm Vital Signs Most recent to oldest [Reference Range]: 1 2 3 Oxygen Saturation [94-100 %] 97 % (06/30/22 5:59 PM) 99 % (06/30/22 3:03 PM) 98 % (06/30/22 2:56 PM) Pulse Rate [55-90 bpm] 73 bpm (06/30/22 5:59 PM) 114 bpm *H* (06/30/22 3:03 PM) 93 bpm *H* (06/30/22 2:56 PM) Blood Pressure [90-138/55-84 mm Hg] 152/102mm Hg *H* (06/30/22 5:59 PM) 148/90mm Hg *H* (06/30/22 3:03 PM) Respiratory Rate [16-30 br/min] 14 br/min *L* (06/30/22 5:59 PM) 16 br/min (06/30/22 3:03 PM) Temperature [96.8-100.4 DegF] 98.6 DegF (06/30/22 3:03 PM) Mode of Delivery (Oxygen) Room air (06/30/22 5:59 PM) Room air (06/30/22 3:03 PM) Room air (06/30/22 2:56 PM) Blood pressure sites Arm, left (06/30/22 5:59 PM) Arm, right (06/30/22 3:03 PM) Temperature Route Oral (06/30/22 3:03 PM) Social History Social History Type Response Smoking Status 10 or more cigarette s (1/2 pack or more)/day in last 30 days entered on: 05/07/22 Sex Note * Janine De León MD: PERFORM, SIGN, VERIFY Event Display: Patient Education Handout Authored Date: [id number] * Janine De León MD: PERFORM Event Display: Patient Education Leaflets Authored Date: [id number] Uncertain Causes of Chest Pain ?? [id number] Uncertain Causes of Chest Pain Chest pain [...] leg ?? Last Reviewed Date: 2021 ?? [id number] [employer]. All rights reserved. This information is not intended as a substitute for professional medical care. Always follow your healthcare professional's instructions. ?? * Ariana , ENRIUQE S: TRANSCJEANNINE Khan MD, Chandler W: VERIFY Event Display: Result: Authored Date: [id number] Chest 2 Views Frontal and Lat Reason: Other:; Chest Pain; Clinical Question(s): Other: COMPARISON: 06/15/2022 FINDINGS: LINES AND TUBES: None. LUNGS AND PLEURA: Clear lungs. Normal pulmonary vascularity. No pleural effusion. No pneumothorax. HEART, MEDIASTINUM AND ABRAHAM: Heart is normal in size. Normal mediastinal and hilar contour. BONES AND SOFT TISSUES: No acute abnormality. IMPRESSION: No acute abnormality. WSN: [id number] Ordering Physician: Ibrahima Child Dictated By: Chandler Khan MD Dictated Date/Time: 06/30/22 3:15 pm Reviewed By: Chandler Khan MD Signed By: Chandler Khan MD Signed Date/Time: 06/30/22 3:15 pm Transcribed By: ARON Transcribed Date/Time: 06/30/22 3:14 pm CTA Abdominal vessels W contrast IV * [facility] , CIS S: TRANSCRIBE Deniz Concepcion MD: VERIFY Silvnao DIAZIleana F: SIGN Event Display: Result: Authored Date: [id number] EXAMINATION: CT Angio Chest, CT Angio Abdomen INDICATION: Midsternal CP and SOB x2 days, shotting pain into bilateral inner arm, reports left sided neck stiffness- resolved at this time, lightheadedness; Reason: Aortic disease, nontraumatic; Clinical Question(s): Aortic Dissection TECHNIQUE: An initial noncontrast CT of the chest was performed. Spiral CTA of the chest and abdomen was performed after rapid IV contrast administration with cardiac gating triggered by an SUYAPA on the aorta. Images are formatted in multiple planes using 2-D multiplanar and 3-D maximum intensity projection. Obliqued images through the aortic root were reconstructed. 100 cc of Omnipaque 300 was administered intravenously. Weight-based protocol using automatic tube modulation was used to optimize exposure parameters. CTDIvol Body: 10.26 mGy, DLP Body: 675 mGy*cm. COMPARISONS: CT abdomen/pelvis 06/15/2022 ANGIOGRAPHIC FINDINGS: No aortic dissection or aneurysm. Normal three vessel arch without branch vessel stenosis. Very mild vascular calcifications. Pulmonary arteries are normal in caliber. No evidence of central pulmonary embolism on this study performed without dedicated technique. NON-ANGIOGRAPHIC FINDINGS: Package Dyeing Machine Operator View Findings, Lines and Tubes: None. Trachea and Airways: Patent without evidence of tracheal or endobronchial lesion. Lungs and Pleura: Mild dependent atelectasis. No effusion or pneumothorax. Mediastinum and abraham: No mass or hematoma. No mediastinal or hilar lymphadenopathy. No esophageal abnormality. Normal thyroid. Heart: Heart is normal in size. No pericardial effusion. No coronary arterial calcifications. Chest Wall Soft Tissues: Normal. Diaphragm : No significant abnormality. Liver: Normal. Gallbladder: No CT evidence of gallbladder pathology. Bile ducts: No biliary ductal dilation. Spleen: Normal. Accessory splenic tissue is incidentally noted. Pancreas: Normal. Adrenal glands: Normal. Kidneys and ureters: Ptotic right kidney located in the right mid abdomen with malrotation and mildhydronephrosis which could be related to a UPJ obstruction. Stomach, small bowel, and large bowel: Visualized stomach and bowel are normal. Peritoneum and retroperitoneum: No ascites or pneumoperitoneum. Unchanged lobulated enhancing soft tissue lesion inferior to the left hemidiaphragm measuring 1.1 cm (604:83). Lymph nodes: No enlarged lymph nodes. Abdominal wall: Tiny fat-containing umbilical hernia. Bones: No acute abnormality. IMPRESSION: No aortic aneurysm or dissection. 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 I have personally reviewed the images and I agree with this report. WSN: [id number] Ordering Physician: Janine De León Dictated By: Ileana Schaefer DO Dictated Date/Time: 06/30/22 5:58 pm Reviewed By: Deniz Concepcion MD Signed By: Deniz Concepcion MD Signed Date/Time: 06/30/22 6:03 pm Transcribed By: ARON Transcribed Date/Time: 06/30/22 5:34 pm CTA Chest vessels W contrast IV * [employer] , CIS S: TRANSCRIBE Deniz Concepcion MD: VERIFY Ileana Schaefer DO: SIGN Event Display: Result: Authored Date: EXAMINATION: CT Angio Chest, CT Angio Abdomen INDICATION: Midsternal CP and SOB x2 days, shotting pain into bilateral inner arm, reports left sided neck stiffness- resolved at this time, lightheadedness; Reason: Aortic disease, nontraumatic; Clinical Question(s): Aortic Dissection TECHNIQUE: An initial noncontrast CT of the chest was performed. Spiral CTA of the chest and abdomen was performed after rapid IV contrast administration with cardiac gating triggered by an SUYAPA on the aorta. Images are formatted in multiple planes using 2-D multiplanar and 3-D maximum intensity projection. Obliqued images through the aortic root were reconstructed. 100 cc of Omnipaque 300 was administered intravenously. Weight-based protocol using automatic tube modulation was used to optimize exposure parameters. CTDIvol Body: 10.26 mGy, DLP Body: 675 mGy*cm. COMPARISONS: CT abdomen/pelvis 06/15/2022 ANGIOGRAPHIC FINDINGS: No aortic dissection or aneurysm. Normal three vessel arch without branch vessel stenosis. Very mild vascular calcifications. Pulmonary arteries are normal in caliber. No evidence of central pulmonary embolism on this study performed without dedicated technique. NON-ANGIOGRAPHIC FINDINGS: Package Dyeing Machine Operator View Findings, Lines and Tubes: None. Trachea and Airways: Patent without evidence of tracheal or endobronchial lesion. Lungs and Pleura: Mild dependent atelectasis. No effusion or pneumothorax. Mediastinum and abraham: No mass or hematoma. No mediastinal or hilar lymphadenopathy. No esophageal abnormality. Normal thyroid. Heart: Heart is normal in size. No pericardial effusion. No coronary arterial calcifications. Chest Wall Soft Tissues: Normal. Diaphragm : No significant abnormality. Liver: Normal. Gallbladder: No CT evidence of gallbladder pathology. Bile ducts: No biliary ductal dilation. Spleen: Normal. Accessory splenic tissue is incidentally noted. Pancreas: Normal. Adrenal glands: Normal. Kidneys and ureters: Ptotic right kidney located in the right mid abdomen with malrotation and mildhydronephrosis which could be related to a UPJ obstruction. Stomach, small bowel, and large bowel: Visualized stomach and bowel are normal. Peritoneum and retroperitoneum: No ascites or pneumoperitoneum. Unchanged lobulated enhancing soft tissue lesion inferior to the left hemidiaphragm measuring 1.1 cm (604:83). Lymph nodes: No enlarged lymph nodes. Abdominal wall: Tiny fat-containing umbilical hernia. Bones: No acute abnormality. IMPRESSION: No aortic aneurysm or dissection. 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 I have personally reviewed the images and I agree with this report. WSN: [id number] Ordering Physician: Janine De León Dictated By: Ileana Schaefer DO Dictated Date/Time: 06/30/22 5:58 pm Reviewed By: Deniz Concepcion MD Signed By: Deniz Concepcion MD Signed Date/Time: 06/30/22 6:03 pm Transcribed By: CSDelicia Transcribed Date/Time: 06/30/22 5:34 pm Patient Care team information Care Team Personnel Name: Ana CROWELL, Nuvia Chavira Position: [facility] RN Member Role: Primary Care Nurse Name: Pepe Dias Position: [facility] Outreach Member Role: PCP Address: Address: [address] [place] [address]- Name: Larisa Ruggiero Position: [facility] ED RN W/OE and Tasks Member Role: Patient Care Provider Name: Genet RENEE, Janine Peña Position: [facility] Resident Member Role: ED Resident Address: Address: [address] [place] [address] [place] [address]- Name: Kwadwo Melgar MD Position: [facility] ED Medicine MD Member Role: Admitting Physician Address: Address: [address] [place] [address] Palliative [place] [address]- Name: Dana Ibarra Position: [facility] ED TA [facility] Care Team Related Persons Name: ABRAHAM NARVAEZ Address: home [address] [place] [id number]
--- OUTSIDE RECORDS SUMMARY | 2023-06-10 18:24 | XMS_ITS | Continuity of Care Document ---
Author Name Unknown Organization [facility] ter Address [address] [place] [id number]- Care Team Providers Care District Gauger Name Role Phone Pepe Dias Primary Care Physician En[place] [facility] [place] Date(s[place] 12/27/22 - 12/27/[address] [address]- Encounter Diagnosis Leg pain(Final) - 12/27/22 Abdominal pain(Final) - 12/27/22 Chest pain(Final) - 12/27/22 Discharge Disposition: A-D/C Home Attending Physician: Laz [...] Exam Date Time Procedure Performing Provider Status 12/27/22 6:28 PM US Pelvic Doppler Comp Sa dick Selby; Auth (Verified) Notes: (US Pelvic Doppler Comp) Reason For Exam: Scrotal Pain;Other: RESULT: US Pelvic Doppler Comp US Scrotum and Contents, US Pelvic Doppler Comp Hx of Present Illness: : i have pain left lower abd pain that shoots up to my heart : c o difficulty urinating; Reason: Other:; Scrotal Pain; Clinical Question(s): Torsion COMPARISON: None TECHNIQUE: High-resolution sonography with grayscale, color and spectral Doppler analysis. FINDINGS: RIGHT: Right testicle size: 4.2 x 2.2 x 2.4 cm (11.6 cc). Normal right testicle size, contour and echotexture without focal lesions. Normal arterial and venous waveforms. The epididymis is unremarkable. No significant hydrocele or varicocele. LEFT: Left testicle size: 3.3 x 2.3 x 2.4 cm (9.6 cc). Normal left testicle size, contour and echotexture without focal lesions. Normal arterial and venous waveforms. The epididymis is unremarkable. No significant varicocele. Large volume left hydrocele estimated at 60 mL. IMPRESSION: No evidence for torsion. No acute abnormality. Large left hydrocele. WSN: [id number] Ordering Physician: Laz Brooks Dictated By: Kenyon RENEEDexter Dictated Date/Time: 12/27/22 6:47 pm Reviewed By: Dexter Prescott MD Signed By: Dexter Prescott MD Signed Date/Time: 12/27/22 6:47 pm Transcribed By: ARON Transcribed Date/Time: 12/27/22 6:45 pm * Exam Date Time Procedure Performing Provider Status 12/27/22 6:28 PM US Scrotum and Contents Loan Selby; Auth (Verified) Notes: (US Scrotum and Contents) Reason For Exam: Scrotal Pain;Other: RESULT: US Scrotum and Contents US Scrotum and Contents, US Pelvic Doppler Comp Hx of Present Illness: : i have pain left lower abd pain that shoots up to my heart : c o difficulty urinating; Reason: Other:; Scrotal Pain; Clinical Question(s): Torsion COMPARISON: None TECHNIQUE: High-resolution sonography with grayscale, color and spectral Doppler analysis. FINDINGS: RIGHT: Right testicle size: 4.2 x 2.2 x 2.4 cm (11.6 cc). Normal right testicle size, contour and echotexture without focal lesions. Normal arterial and venous waveforms. The epididymis is unremarkable. No significant hydrocele or varicocele. LEFT: Left testicle size: 3.3 x 2.3 x 2.4 cm (9.6 cc). Normal left testicle size, contour and echotexture without focal lesions. Normal arterial and venous waveforms. The epididymis is unremarkable. No significant varicocele. Large volume left hydrocele estimated at 60 mL. IMPRESSION: No evidence for torsion. No acute abnormality. Large left hydrocele. WSN: [id number] Ordering Physician: Laz Brooks Dictated By: Dexter Prescott MD Dictated Date/Time: 12/27/22 6:47 pm Reviewed By: Dexter Prescott MD Signed By: Dexter Prescott MD Signed Date/Time: 12/27/22 6:47 pm Transcribed By: ARON Transcribed Date/Time: 12/27/22 6:45 pm * Exam Date Time Procedure Performing Provider Status 12/27/22 6:09 PM US Doppler Ext Lower Venous Left Opal Selby; Auth (Verified) Notes: (US Doppler Ext Lower Venous Left) Reason For Exam: Pain in limb;Other: RESULT: US Doppler Ext Lower Venous Left US Doppler Ext Lower Venous Left Hx of Present Illness: : i have pain left lower abd pain that shoots up to my heart : c o difficulty urinating; Reason: Other:; Pain in limb; Clinical Question(s): Thrombus COMPARISON: Left lower examination Doppler ultrasound from 12/16/2022 IMAGING TECHNIQUE: Ultrasound of the veins from [...] No evidence of deep venous thrombosis. WSN: [id number] Ordering Physician: Laz Brooks Dictated By: Dexter Chavez MD Dictated Date/Time: 12/27/22 6:22 pm Reviewed By: Dexter Chavez MD Signed By: Dexter Chavez MD Signed Date/Time: 12/27/22 6:22 pm Transcribed By: ARON Transcribed Date/Time: 12/27/22 6:21 pm * Exam Date Time Procedure Performing Provider Status 12/27/22 5:[address] Abd/Pelvis W/ IV Contrast Only Diann Glez; Auth (Verified) Notes: (CT Abd/Pelvis W/ IV Contrast Only) Reason For Exam: LLQ abdominal pain;Other: RESULT: CT Abd/Pelvis W/ IV Contrast Only CT Abd/Pelvis W/ IV Contrast Only Hx of Present Illness: : i have pain left lower abd pain that shoots up to my heart : c o difficulty urinating; Reason: Other:; LLQ abdominal pain; Clinical Question(s): Other:; Order Comment: TECHNIQUE: Spiral CT through the abdomen and pelvis with IV contrast formatted in 3 planes. 100 cc of Omnipaque 300 was administered intravenously. This study was performed without oral contrast. Weight-based protocol using automatic tube modulation was used to optimize exposure parameters. CTDIvol Body: 15.40 mGy, DLP Body: 854 mGy*cm. COMPARISON: CTA chest and abdomen from 12/08/2022 CT abdomen and pelvis from 06/15/2022 FINDINGS: Business Development Agent View Findings, Lines and Tubes: None. Visualized Chest: Bibasilar atelectasis. No pleural effusion. The heart is normal in size. No pericardial effusion. Diaphragm: Normal. Liver: Normal. Gallbladder: No CT evidence of gallbladder pathology. Bile ducts: No biliary ductal dilation. Spleen: Normal. Unchanged accessory splenic tissue is incidentally noted. Pancreas: Normal. Adrenal glands: Normal. 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 No hydronephrosis, stones, or suspicious masses. Bladder: Normal. Reproductive organs: Unremarkable. Stomach, small bowel, and large bowel: Normal. Appendix: Normal. Peritoneum and retroperitoneum: No ascites or pneumoperitoneum. No omental or mesenteric lesions. Lymph nodes: No enlarged lymph nodes. Blood vessels: Mild vascular calcifications but no aneurysm. No evidence of venous thrombosis. Abdominal and pelvic wall: Unremarkable. Bones: No acute abnormality. IMPRESSION: Unremarkable CT of the abdomen and pelvis. WSN: [id number] Ordering Physician: Laz Brooks Dictated By: Dexter Chavez MD Dictated Date/Time: 12/27/22 6:02 pm Reviewed By: Dexter Chavez MD Signed By: Dexter Chavez MD Signed Date/Time: 12/27/22 6:02 pm Transcribed By: ARON Transcribed Date/Time: 12/27/22 5:57 pm * Exam Date Time Procedure Performing Provider Status 12/27/22 5:19 PM Chest 2 Views Frontal and Lat Debbie Pizano; Auth (Verified) Notes: (Chest 2 Views Frontal and Lat) Reason For Exam: Pleuritic Pain RESULT: Chest 2 Views Frontal and Lat Examination: Chest performed on 12/27/2022. History: Abdominal pain. Pleuritic pain. Findings: Frontal and lateral views of the chest are compared to a prior study dated 12/10/2022. The cardiac and mediastinal silhouettes are within normal limits. The lungs are clear. The osseous and soft tissue structures are unremarkable. Impression: There is no acute cardiopulmonary disease. WSN: [id number] Ordering Physician: Laz Brooks Dictated By: Polly Ro MD Dictated Date/Time: 12/27/22 5:26 pm Reviewed By: Polly Ro MD Signed By: Polly Ro MD Signed Date/Time: 12/27/22 5:26 pm Transcribed By: ARON Transcribed Date/Time: 12/27/22 5:26 pm Vital Signs Most recent to oldest [Reference Range]: 1 2 3 Height 180 cm (12/27/22 6:33 PM) 180 cm (12/27/22 2:24 PM) 180 cm (12/27/22 1:59 PM) Oxygen Saturation [94-100 %] 99 % (12/27/22 6:33 PM) 98 % (12/27/22 1:59 PM) Pulse Rate [55-90 bpm] 58 bpm (12/27/22 6:33 PM) 69 bpm (12/27/22 1:59 PM) Blood Pressure [90-138/55-84 mm Hg] 151/96mm Hg *H* (12/27/22 6:33 PM) 143/92mm Hg *H* (12/27/22 1:59 PM) Respiratory Rate [16-30 br/min] 18 br/min (12/27/22 6:33 PM) 16 br/min (12/27/22 1:59 PM) Temperature [96.8-100.4 DegF] 97.6 DegF (12/27/22 6:33 PM) 98.3 DegF (12/27/22 1:59 PM) Mode of Delivery (Oxygen) Room air (12/27/22 6:33 PM) Room air (12/27/22 1:59 PM) Blood pressure sites Arm, right (12/27/22 6:33 PM) Arm, left (12/27/22 1:59 PM) Temperature Route Oral (12/27/22 6:33 PM) Oral (12/27/22 1:59 PM) Dry Weight 86.5 kg (12/27/22 6:33 PM) 86.5 kg (12/27/22 2:24 PM) 86.5 kg (12/27/22 1:59 PM) Dry Weight Obtained Via Patient/family s tated (10/17/23 1:59 PM) Social History Social History Type Response Smoking Status 10 or more cigarette s (1/2 pack or more)/day in last 30 days entered on: 05/07/22 Sex EKG study * Event Display: ECG 12-Lead Authored Date: Please click on pdf link to open report * Event Display: ECG 12-Lead Authored Date: [id number] Ventricular Rate: 63 BPM Atrial Rate: 63 BPM P-R Interval: 166 ms QRS Duration: 94 ms Q-T Interval: 394 ms QTC Calculation(Bazett): 403 ms P [place]: 55 degrees R [place]: 26 degrees T [place]: 52 degrees Normal sinus rhythm Normal ECG When compared with ECG of 18-DEC-2022 18:22, No significant change was found Confirmed by JUAN SAMS MD ([id number]) on 12/27/2022 5:14:56 PM [place]: JUAN SAMS MD Patient Care team information Care Team Personnel Name: Nuvia Perez RN Position: [facility] RN Member Role: Primary Care Nurse Name: Dilcia Hartmann Position: [facility] RN Member Role: Primary Care Nurse Name: Kavita Laguna RN Position: [facility] RN Member Role: Primary Care Nurse Name: Pepe Dias Position: [facility] Outreach Member Role: PCP Address: Address: [address] [place] [address]- Name: Yenny Vergara Position: [facility] RN Member Role: Primary Care Nurse Name: April Urbano RN Position: [facility] ED RN W/OE and Tasks Member Role: Patient Care Provider Name: Milvia Hassan DO Position: [facility] Resident Member Role: Resident Address: Address: [address] [place] [address] [place] [address]- Name: Laz Brooks DO Position: [facility] Resident Member Role: Admitting Physician Address: Address: [address] [place] [address] Dept [place] [address]- Name: Diann Fajardo Position: [facility] ED [facility] Member Role: Client Relationship Executive Care Team Related Persons Name: ABRAHAM NARVAEZ Address: [address] [place] [address]
--- OUTSIDE RECORDS SUMMARY | 2023-06-10 18:25 | XMS_ITS | Continuity of Care Document ---
Author Name Unknown Organization [facility] ter Address [address] [place] [id number]- Care Team Providers Care Air Quality Instrument Specialist Name Role Phone Pepe Dias Primary Care Physician Encounter [facility] [place] [facility] [place] [id number] Date(s): 01/14/23 - 01/14/[address] [address]- Discharge Disposition: A-D/C Home Attending Physician: Dexter [...] Exam Date Time Procedure Performing Provider Status 01/14/23 7:14 PM US Pelvic Doppler Comp Adeola Mackey; Auth (Verified) Notes: (US Pelvic Doppler Comp) Reason For Exam: Scrotal Pain;Other: RESULT: US Pelvic Doppler Comp US Scrotum and Contents, US Pelvic Doppler Comp Hx of Present Illness: pt states for the past 2 days feels like heart racing with hot flashes pt denies any chest pain and left groin pain pt denies any recent travel no SOB pt was seen here last week for same symptoms and was dc home; Reason: Other:; Scrotal Pain; Clinical Question(s): Torsion COMPARISON: 12/27/2022 TECHNIQUE: High-resolution sonography with grayscale, color and spectral Doppler analysis. FINDINGS: RIGHT: Right testicle size: 4.0 x 2.2 x 2.5 cm (11.5 cc). Normal right testicle size, contour and echotexture without focal lesions. Normal arterial and venous waveforms. The epididymis is unremarkable. No significant hydrocele or varicocele. LEFT: Left testicle size: 3.2 x 2.0 x 2.5 cm (8.1 cc). Normal left testicle size, contour and echotexture without focal lesions. Normal arterial and venous waveforms. The epididymis is unremarkable. Left hydrocele, also present previously. No varicocele. Incidentally noted left scrotal donn. IMPRESSION: No evidence of testicular torsion. WSN: [id number] Ordering Physician: Nicci Crabtree Dictated By: Sang RENEE, Dexter Cates Dictated Date/Time: 01/14/23 7:23 pm Reviewed By: Dexter Domínguez MD Signed By: Dexter Domínguez MD Signed Date/Time: 01/14/23 7:23 pm Transcribed By: ARON Transcribed Date/Time: 01/14/23 7:21 pm * Exam Date Time Procedure Performing Provider Status 01/14/23 7:14 PM US Scrotum and Contents Cristina Mackey; Auth (Verified) Notes: (US Scrotum and Contents) Reason For Exam: Scrotal Pain;Other: RESULT: US Scrotum and Contents US Scrotum and Contents, US Pelvic Doppler Comp Hx of Present Illness: pt states for the past 2 days feels like heart racing with hot flashes pt denies any chest pain and left groin pain pt denies any recent travel no SOB pt was seen here last week for same symptoms and was dc home; Reason: Other:; Scrotal Pain; Clinical Question(s): Torsion COMPARISON: 12/27/2022 TECHNIQUE: High-resolution sonography with grayscale, color and spectral Doppler analysis. FINDINGS: RIGHT: Right testicle size: 4.0 x 2.2 x 2.5 cm (11.5 cc). Normal right testicle size, contour and echotexture without focal lesions. Normal arterial and venous waveforms. The epididymis is unremarkable. No significant hydrocele or varicocele. LEFT: Left testicle size: 3.2 x 2.0 x 2.5 cm (8.1 cc). Normal left testicle size, contour and echotexture without focal lesions. Normal arterial and venous waveforms. The epididymis is unremarkable. Left hydrocele, also present previously. No varicocele. Incidentally noted left scrotal donn. IMPRESSION: No evidence of testicular torsion. WSN: [id number] Ordering Physician: Nicci Crabtree Dictated By: Dexter Domínguez MD Dictated Date/Time: 01/14/23 7:23 pm Reviewed By: Dexter Domínguez MD Signed By: Dexter Domínguez MD Signed Date/Time: 01/14/23 7:23 pm Transcribed By: ARON Transcribed Date/Time: 01/14/23 7:21 pm * Exam Date Time Procedure Performing Provider Status 01/14/23 7:14 PM US Doppler Ext Lower Venous Left McInt osh , Sheila; Auth (Verified) Notes: (US Doppler Ext Lower Venous Left) Reason For Exam: Pain in limb;Other: RESULT: US Doppler Ext Lower Venous Left US Doppler Ext Lower Venous Left Hx of Present Illness: pt states for the past 2 days feels like heart racing with hot flashes pt denies any chest pain and left groin pain pt denies any recent travel no SOB pt was seen here last week for same symptoms and was dc home; Reason: Other:; Pain in limb; Clinical Question(s): Thrombus COMPARISON: 12/27/2022 IMAGING TECHNIQUE: Ultrasound of the veins from [...] Contralateral common femoral vein: Patent. No thrombosis. IMPRESSION: No evidence of deep venous thrombosis. WSN: [id number] Ordering Physician: Nicci Crabtree Dictated By: Dexter Domínguez MD Dictated Date/Time: 01/14/23 7:16 pm Reviewed By: Dexter Domínguez MD Signed By: Dexter Domínguez MD Signed Date/Time: 01/14/23 7:16 pm Transcribed By: ARON Transcribed Date/Time: 01/14/23 7:15 pm * Exam Date Time Procedure Performing Provider Status 01/14/23 3:52 PM Chest 2 Views Frontal and Lat Jj Grover; Auth (Verified) Notes: (Chest 2 Views Frontal and Lat) Reason For Exam: Chest Pain;Other: RESULT: Chest 2 Views Frontal and Lat Chest 2 Views Frontal and Lat HX OF PRESENT ILLNESS: pt states for the past 2 days feels like heart racing with hot flashes pt denies any chest pain and left groin pain pt denies any recent travel no SOB pt was seen here last week for same symptoms and was dc home; Reason: Chest Pain; Clinical Question(s): CHF / CHF COMPARISON: 12/27/2022 FINDINGS: LINES AND TUBES: None. LUNGS AND PLEURA: Clear lungs. Normal pulmonary vascularity. No pleural effusion. No pneumothorax. HEART, MEDIASTINUM AND CATE: Heart is normal in size. Normal mediastinal and hilar contour. BONES AND SOFT TISSUES: No acute abnormality. IMPRESSION: No evidence of acute abnormality. WSN: [id number] Ordering Physician: Jeannie Thomas Dictated By: Dexter Domínguez MD Dictated Date/Time: 01/14/23 4:06 pm Reviewed By: Dexter Domínguez MD Signed By: Dexter Domínguez MD Signed Date/Time: 01/14/23 4:06 pm Transcribed By: ARON Transcribed Date/Time: 01/14/23 4:05 pm Vital Signs Most recent to oldest [Reference Range]: 1 2 3 Height 180 cm (01/14/23:34 PM) 180 cm (01/14/23 4:11 PM) 180 cm (01/14/23 12:15 PM) Oxygen Saturation [94-100 %] 95 % (01/14/23:34 PM) 100 % (01/14/23 4:11 PM) 97 % (01/14/23 12:15 PM) Pulse Rate [55-90 bpm] 63 bpm (01/14/23:34 PM) 59 bpm (01/14/23 4:11 PM) 84 bpm (01/14/23 12:15 PM) Blood Pressure [90-138/55-84 mm Hg] 141/95mm Hg *H* (01/14/23:34 PM) 143/94mm Hg *H* (01/14/23:11 PM) 138/92mm Hg (01/14/23 12:15 PM) Respiratory Rate [16-30 br/min] 18 br/min (01/14/23 6:34 PM) 18 br/min (01/14/23 4:11 PM) 18 br/min (01/14/23 12:15 PM) Temperature [96.8-100.4 DegF] 98.4 DegF (01/14/23:34 PM) 97.6 DegF (01/14/23 4:11 PM) 98.2 DegF (01/14/23 12:15 PM) Mode of Delivery (Oxygen) Room air (01/14/23 6:34 PM) Room air (01/14/23 4:11 PM) Room air (01/14/23 12:15 PM) Blood pressure sites Arm, left (01/14/23 6:34 PM) Arm, left (01/14/23 4:11 PM) Arm, left (01/14/23 12:15 PM) Temperature Route Oral (01/14/23 6:34 PM) Oral (01/14/23 4:11 PM) Oral (01/14/23 12:15 PM) Social History Social History Type Response Smoking Status 10 or more cigarette s (1/2 pack or more)/day in last 30 days entered on: 05/07/22 Sex EKG study * Event Display: ECG 12-Lead Authored Date: Please click on pdf link to open report * Event Display: ECG 12-Lead Authored Date: Ventricular Rate: 76 BPM Atrial Rate: 76 BPM P-R Interval: 132 ms QRS Duration: 98 ms Q-T Interval: 388 ms QTC Calculation(Bazett): 436 ms P [place]: 61 degrees R [place]: 31 degrees T [place]: 62 degrees Normal sinus rhythm Normal ECG When compared with ECG of 05-JAN-2023 21:21, No significant change was found Confirmed by CHRISTO CURRY MD ([id number]) on 01/14/2023 2:03:11 PM [place]: CHRISTO CURRY MD Note * Nicci Arauz: PERFORM Event Display: Patient Education Leaflets Authored Date: [id number] Uncertain Causes of Chest Pain ?? [id number] Uncertain Causes of Chest Pain Chest pain [...] leg ?? Last Reviewed Date: 2021 ?? [id number] [employer]. All rights reserved. This information is not intended as a substitute for professional medical care. Always follow your healthcare professional's instructions. ?? Patient Care team information Care Team Personnel Name: Nuvia Perez RN Position: [facility] RN Member Role: Primary Care Nurse Name: Dilcia Hartmann Position: S RN Member Role: Primary Care Nurse Name: Kavita Laguna RN Position: S RN Member Role: Primary Care Nurse Name: Pepe Dias Position: [facility] Outreach Member Role: PCP Address: Address: [address] [place] [id number]- Name: Yenny Vergara Position: [facility] RN Member Role: Primary Care Nurse Name: Mildred Crum Position: [facility] ED [facility] Member Role: Communications Attendant Name: Dexter Vivas MD Position: [facility] ED Medicine MD Member Role: Admitting Physician Address: Address: [address] [place] [address]- Name: Amanda Zheng Position: [facility] ED [facility] Member Role: Patient Care Provider Name: Nicci Arauz Position: [facility] Associate Professional Member Role: ED Physician Cashier Manager Address: Address: [address] [place] [address] [place] [address]- Name: Kalya Coy RN Position: [facility] ED RN W/OE and Tasks Member Role: Patient Care Provider Care Team Related Persons Name: SOLANGEREMIABRAHAM Address: [address] [address]
--- OUTSIDE RECORDS SUMMARY | 2023-06-10 18:25 | XMS_ITS | Continuity of Care Document ---
Author Name Unknown Organization [facility] ter Address [address] [place] [address]- Care Team Providers Care District Engineer Name Role Phone Emre BURKS, Lilly Primary Care Physician [place] [facility] [place] - 04/15/[address] [address]- Encounter Diagnosis Atrial fibrillation(Final) - 04/15/22 Palpitations(Final) - 04/15/22 Discharge Disposition: A-D/C Home Attending Physician: Sheila Xiong MD Admitting Physician: Sheila Xiong MD Referring Physician: Not on Staff, Referring [...] 04/02/22 9:51:00 EST, Route to Pharmacy Electronically, [facility], Partial fill upon patient request if the prescription is for a schedule II opioid... Start Date: 04/02/22 Stop Date: 06/01/22 Status: Ordered Cardizem CD 120 mg/24 hours oral capsule, extended release 120 mg, 1, capsule, By Mouth, Daily, # 30 capsule, Refills 1, Tot. Refills 1, Maintenance, 239:51:00 EST, Route to Pharmacy Electronically, [facility], Partial fill upon patient [...] 1 2 3 Oxygen Saturation [94-100 %] 98 % (04/15/22 11:19 PM) 95 % (04/15/22 10:17 PM) 98 % (04/15/22 8:14 PM) Blood Pressure [90-138/55-84 mm Hg] 111/73mm Hg (04/15/22 11:19 PM) 115/71mm Hg (04/15/22 10:17 PM) 112/87mm Hg (04/15/22 8:14 PM) Respiratory Rate [16-30 br/min] 13 br/min *L* (04/15/22 11:19 PM) 13 br/min *L* (04/15/22 10:17 PM) 14 br/min *L* (04/15/22 8:14 PM) Temperature [96.8-100.4 DegF] 98.1 DegF (04/15/22 11:19 PM) 98.2 DegF (04/15/22 8:14 PM) Mode of Delivery (Oxygen) Room air (04/15/22 11:19 PM) Room air (04/15/22 10:17 PM) Room air (04/15/22 8:14 PM) Blood pressure sites Arm, left (04/15/22 11:19 PM) Arm, right (04/15/22 10:17 PM) Arm, right (04/15/22 8:14 PM) Temperature Route Oral (04/15/22 11:19 PM) Oral (04/15/22 8:14 PM) Social History Social History Type Response Smoking Status 10 or more cigarette s (1/2 pack or more)/day in last 30 days entered on: 09/07/21 Sex Note * Kathie Grover DO: PERFORM Event Display: Patient Education Leaflets Authored Date: [id number] Heart Palpitations ?? [id number] Heart Palpitations Palpitations are the feeling that [...] Coronary artery disease ??? High blood pressure Dwg-dctgl-xaukdcs causes: ??? Certain medicines such as asthma [...] Tell your doctor about any prescription or uhxu-khu-ftganyo or herbal medicines you take. ?? Follow-up [...] palpitations. ?? Last Reviewed Date: 2021 ?? 9237-0127 [employer]. All rights reserved. This information is not intended as a substitute for professional medical care. Always follow your healthcare professional's instructions. ?? * Kathie Grover DO: PERFORM Event Display: Patient Education Leaflets Authored Date: [id number] About Arrhythmias ?? [id number] About Arrhythmias Electrical impulses cause the normal heart to beat about 60 to 100 times a minute while at rest. These impulses come from a natural pacemaker called the sinus node. It's in the right upper heart chamber. Electrical impulses travel throughout the upper heart chambers (the atria) before reaching the bottom muscle chambers (the ventricles) through an electrical connection called the AV node. Each impulse causes the heart muscle to contract. This causes the blood to flow through the heart and out to the tissues and organs of your body. An arrhythmia is a change from the normal speed or pattern of these electrical impulses. This can cause the heart to beat too fast (tachycardia), too slow (bradycardia), or in an unsteady pattern (irregular rhythm). Symptoms of arrhythmias Different people experience arrhythmias differently. And different arrhythmias can cause different symptoms. Sometimes you may not have symptoms, but just notice a change in your pulse. Symptoms can include: ??? Fluttering feeling in the chest ??? Shortness of breath ??? Chest pain or pressure ??? Neck fullness ??? Lightheadedness or dizziness ??? Fainting or almost fainting ??? Palpitations. This is the sense that your heart is fluttering or beating fast or hard or irregularly. ??? Tiredness, fatigue, or weakness ??? Cardiac arrest, and , in serious arrhythmias ?? Causes of arrhythmias Arrhythmias are most often caused by heart disease, such as: ??? Coronary artery disease ( blocked arteries ) ??? Heart valve disease ??? Enlarged heart ??? High blood pressure ??? Heart failure Other causes of??arrhythmia include: ??? Certain medicines, such as asthma inhalers and decongestants ??? Some herbal supplements ??? Cardiac stimulant drugs and medicines. These include cocaine, amphetamine, and diet pills, and certaindecongestant cold medicines, caffeine, and nicotine. ??? Heavy use of alcohol ??? Anxiety and panicdisorder ??? Thyroid disease ??? Anemia ??? Diabetes ??? Sleep apnea ??? Obesity ??? Heart disease s joe (congenital) ??? Heart diseases passed down through families ??? Electrolyte imbalance. Electrolytes are substances that help regulate normal heartbeat. High or low levels of certain electrolytes such as potassium or magnesium may affect the heartbeat and lead to arrhythmia. ??? Older age Arrhythmias can often be prevented. The cause and type of arrhythmia determines the best treatment.Sometimes your healthcare provider may want to keep track of your heart rate over a 24-hour period or longer. This can help find the cause of your arrhythmia and find the best treatment. This can be done with a Holter monitor. This is??a portable electrocardiogram (ECG) recording device attached toyour chest. Or you may get an event monitor. You can place this monitor over the skin in front of your heart. It records heart rhythms. You can carry this with you as you go about your daily activities during the monitoring period. You may also have an implantable loop recorder. This can monitor the heart rhythm for up to 3 years. This tiny device is placed underneath the skin over the heart. ?? Home care These guidelines will help you care for yourself at home: ??? Stay away from heart stimulants. These include cocaine, amphetamine, diet pills, certain decongestant cold medicines, caffeine, and nicotine. ??? Stop smoking if you smoke. Contact your healthcare provider or a local stop-smoking programfor help. ??? Tell your healthcare provider about any prescription, over the counter, or herbal medicines you take. These may be affecting your heart rhythm. ?? Follow-up care Follow up with your healthcare provider, or as advised. If a Holter monitor has been advised, contact the hand cell tuber??you have been referred to??as soon as you can??to berry picker machine operator the device. Other outpatient tests may also be arranged for you at that time. ?? Call 911 This is the fastest and safest way to get to the emergency department. The paramedics can also start treatment on the way to the hospital, if needed. Don't??wait until your symptoms are severe to call 911. Other reasons to call 911 besides chest pain include: ??? Chest pain radiating to the shoulder, arm, neck, or back ??? Shortness of breath ??? Feeling lightheaded, faint, or dizzy ??? Unexplained fainting ??? Rapid heartbeat ??? Slower than usual heart rate compared to your normal ??? Very irregular heartbeat ??? Chest pain (angina) with weakness, dizziness, heavy sweating, nausea, or vomiting ??? Extreme drowsiness, or confusion ??? Weakness of an arm or leg or one side of the face ??? Trouble with speech or vision ?? When to get medical advice Remember, things are not always like they are on TV. Sometimes it is not so obvious. You may only feel weak or just not right. If it is not clear or if you have any doubt, call for advice. ??? Seekhelp for chest pain, or if something feels different from usual, even if your symptoms are mild. ??? Don't drive yourself. Have someone else drive. If no one can drive you, call 911. ??? If your healthcare provider has given you medicines to take when you have symptoms, take them, but don't delay getting help while trying to find them. ?? Last Reviewed Date: 2021 ?? 7928-5902 [employer]. All rights reserved. This information is not intended as a substitute for professional medical care. Always follow your healthcare professional's instructions. ?? Patient Care team information Care Team Personnel Name: Ana CROWELL, Nuvia Chavira Position: [facility] RN Member Role: Primary Care Nurse Name: Lilly Andrea NP Position: Reference Physician Member Role: PCP Address: Address: [address] [place] [phone]- [place] Name: Lee Ann Shepherd Position: [facility] ED TA [facility] Member Role: Carton Lettering Machine Operator Name: Sheila Xiong MD Position: [facility] ED Medicine MD Member Role: Admitting Physician Address: Address: [address] [place] [address] [place] [address]- Name: Lalo Orta Position: [facility] ED RN W/OE and Tasks Member Role: Patient Care Provider Name: Kathie Grover DO Position: [facility] Resident Member Role: ED Resident Address: Address: [address] [place] [address] [place] [address]- Name: Kathy Dow RN Position: [facility] ED RN W/OE and Tasks Member Role: Patient Care Provider Care Team Related Persons Name: ABRAHAM NARVAEZ Address: [address] [address]
--- OUTSIDE RECORDS SUMMARY | 2023-06-10 18:25 | XMS_ITS | Continuity of Care Document ---
Author Name Unknown Organization [facility] Address [address] [place] [address]- Care Team Providers Care Blacksmith Helper Name Role Phone Yohan MONTGOMERY, Pepe Primary Care Physician [place] [facility] [place]22 - 08/25/22 [facility] [address] [place] [address]- Allergies, Adverse Reactions, Alerts No Known Allergies [...] 04/02/22 9:51:00 EST, Route to Pharmacy Electronically, [facility], Partial fill upon patient request if the prescription is for a schedule II opioid... Start Date: 04/02/22 Stop Date: 06/01/22 Status: Ordered Cardizem CD 120 mg/24 hours oral capsule, extended release 120 mg, 1, capsule, By Mouth, Daily, # 30 capsule, Refills 1, Tot. Refills 1, Maintenance, 239:51:00 EST, Route to Pharmacy Electronically, [facility], Partial fill upon patient request if the prescription is for a schedule II opi... Start Date: 04/02/22 Stop Date: 06/01/22 Status: Ordered famotidine 20 mg oral tablet 20 mg, 1, tablet, By Mouth, 2 times a day, # 180 tablet, Refills 0, Tot. Refills 0, Maintenance, 06/23/22 11:07:00 EDT, Route to Pharmacy Electronically, [id number], Partial fill upon patient request if the prescription is for a sched... Start Date: 06/23/22 Status: Ordered ondansetron 4 mg oral tablet, disintegrating 1 tablet = 4 mg, By Mouth, Every 6 hours, PRN as needed for nausea/vomiting, # 12 tablet, 0 Refills, Maintenance, 06/15/22 11:59:00 EDT, DIS Tablet, [facility][id number], Partial fill upon patient request if the [...] St atus Informant Atrial fibrillation Confirmed Active Social History Social History Type Response Smoking Status 10 or more cigarette s (1/2 pack or more)/day in last 30 days entered on: 05/07/22 Sex Patient Care team information Care Team Personnel Name: Ana CROWELL, Nuvia Chavira Position: [facility] RN Member Role: Primary Care Nurse Name: Pepe Dias Position: S Outreach Member Role: PCP Address: Address: [address] [place] [address]- Care Team Related Persons Name: ABRAHAM NARVAEZ Address: home [address] [place] [address]
--- OUTSIDE RECORDS SUMMARY | 2023-06-10 18:25 | XMS_ITS | Continuity of Care Document ---
Author Name Unknown Organization [facility] ter Address [address] [place] [address]- Care Team Providers Care Medical Detailist Name Role Phone Pepe Dias Primary Care Physician Encounter [facility] Date(s): 05/25/22 - 05/25/[address] [address]- Encounter Diagnosis Abdominal pain(Final) - 05/25/22 Precordial chest pain(Final) - 05/25/22 Discharge Disposition: A-D/C AMA Attending Physician: Leonardo Morales MD Admitting Physician: Leonardo Morales MD Referring Physician: Not on Staff, Referring [...] 04/02/22 9:51:00 EST, Route to Pharmacy Electronically, [facility], Partial fill upon patient request if the prescription is for a schedule II opioid... Start Date: 04/02/22 Stop Date: 06/01/22 Status: Ordered Cardizem CD 120 mg/24 hours oral capsule, extended release 120 mg, 1, capsule, By Mouth, Daily, # 30 capsule, Refills 1, Tot. Refills 1, Maintenance, 239:51:00 EST, Route to Pharmacy Electronically, [facility], Partial fill upon patient [...] Exam Date Time Procedure Performing Provider Status 05/25/22 8:38 AM Chest 2 Views Frontal and Lat Gina Louis; Wale (Verified) Notes: (Chest 2 Views Frontal and Lat) Reason For Exam: cp;Other: RESULT: Chest 2 Views Frontal and Lat Chest 2 Views Frontal and Lat INDICATION: Chest pain. COMPARISON: Multiple prior radiographs, most recent 05/08/2022. FINDINGS: LINES AND TUBES: None. LUNGS AND PLEURA: Clear lungs. Normal pulmonary vascularity. No pleural effusion. No pneumothorax. HEART, MEDIASTINUM AND CATE: Heart is normal in size. Normal mediastinal and hilar contour. BONES AND SOFT TISSUES: Mild degenerative changes of the spine. IMPRESSION: No evidence of acute abnormality. I have personally reviewed the images and I agree with this report. WSN: [id number] Ordering Physician: Leonardo Morales Dictated By: Dennis Rush MD Dictated Date/Time: 05/25/22 8:54 am Reviewed By: Bry Snow MD Signed By: Bry Snow MD Signed Date/Time: 05/25/22 8:59 am Transcribed By: ARON Transcribed Date/Time: 05/25/22 8:41 am * Exam Date Time Procedure Performing Provider Status 05/25/22 8:30 AM US RUQ Cyn Cooley; Auth (Ve rified) Notes: (US RUQ) Reason For Exam: Abdominal Pain;Other: RESULT: US RUQ US RUQ Reason: Other:; Abdominal Pain; Clinical Question(s): Cholecystitis COMPARISON: CT abdomen and pelvis from 05/23/2022 FINDINGS: Liver: Suboptimal evaluation of left hepatic lobe due to patient anatomy and overlying bowel gas. Normal in size and echotexture. No focal lesion. Smooth hepatic contour. Main portal vein patent withnormal hepatopetal direction of flow. Gallbladder: No gallstones. Normal wall thickness. No pericholecystic fluid. Negative Walker sign. Biliary Tree: No intrahepatic or extrahepatic bile duct dilation is identified. Common duct measures: 0.4 cm. Pancreas: Obscured by overlying bowel gas. Right kidney: 9.9 cm in length. Rotated right kidney located in the upper pelvis. Normal parenchymal echotexture and thickness. No hydronephrosis, stone or mass. IMPRESSION: Suboptimal evaluation of the left hepatic lobe and pancreas due to overlying bowel gas and patient anatomy. Unremarkable right upper quadrant ultrasound. No evidence of acute cholecystitis. WSN: [id number] Ordering Physician: Leonardo Morales Dictated By: Dexter Chavez MD Dictated Date/Time: 05/25/22 8:42 am Reviewed By: Dexter Chavez MD Signed By: Dexter Chavez MD Signed Date/Time: 05/25/22 8:42 am Transcribed By: ARON Transcribed Date/Time: 05/25/22 8:36 am Vital Signs Most recent to oldest [Reference Range]: 1 2 3 Oxygen Saturation [94-100 %] 97 % (05/25/22 11:43 AM) 97 % (05/25/22 10:04 AM) 96 % (05/25/22 7:20 AM) Pulse Rate [55-90 bpm] 59 bpm (05/25/22 11:43 AM) 69 bpm (05/25/22 10:04 AM) 67 bpm (05/25/22 7:20 AM) Blood Pressure [90-138/55-84 mm Hg] 122/89mm Hg (05/25/22 11:43 AM) 134/91mm Hg (05/25/22 10:04 AM) 150/102mm Hg *H* (05/25/22 7:20 AM) Respiratory Rate [16-30 br/min] 18 br/min (05/25/22 11:43 AM) 19 br/min (05/25/22 10:04 AM) 18 br/min (05/25/22 7:20 AM) Temperature [96.8-100.4 DegF] 98.2 DegF (05/25/22 12:04 PM) 98.5 DegF (05/25/22 7:20 AM) 98.2 DegF (05/25/22 7:01 AM) Mode of Delivery (Oxygen) Room air (05/25/22 11:43 AM) Room air (05/25/22 10:04 AM) Room air (05/25/22 7:20 AM) Blood pressure sites Arm, right (05/25/22 11:43 AM) Arm, right (05/25/22 10:04 AM) Arm, left (05/25/22 7:20 AM) Temperature Route Oral (05/25/22 12:04 PM) Oral (05/25/22 7:20 AM) Oral (05/25/22 7:01 AM) Social History Social History Type Response Smoking Status 10 or more cigarette s (1/2 pack or more)/day in last 30 days entered on: 05/07/22 Sex EKG study * Event Display: ECG 12-Lead Authored Date: Please click on pdf link to open report * Event Display: ECG 12-Lead Authored Date: [id number] Ventricular Rate: 69 BPM Atrial Rate: 69 BPM P-R Interval: 148 ms QRS Duration: 102 ms Q-T Interval: 412 ms QTC Calculation(Bazett): 441 ms P Boone: 45 degrees R Boone: 15 degrees T Boone: 53 degrees Normal sinus rhythm Normal ECG When compared with ECG of 23-MAY-2022 20:22, No significant change was found Confirmed by CHRISTO CURRY MD ([id number]) on 05/25/2022 10:42:29 AM Morrill: CHRISTO CURRY MD * Event Display: EKG Authored Date: [id number] Note * Andrew RENEE, Leonardo Wheeler: PERFORM Event Display: Patient Education Leaflets Authored Date: [id number] Uncertain Causes of Chest Pain ?? [id number] Uncertain Causes of Chest Pain Chest pain [...] leg ?? Last Reviewed Date: 2021 ?? 2731-0399 [employer]. All rights reserved. This information is not intended as a substitute for professional medical care. Always follow your healthcare professional's instructions. ?? * BHSPowerscribe , CIS S: TRANSCRIBE Bry Snow MD: VERIFY Dennis Rush MD: SIGN Event Display: Result: Authored Date: [id number] Chest 2 Views Frontal and Lat INDICATION: Chest pain. COMPARISON: Multiple prior radiographs, most recent 05/08/2022. FINDINGS: LINES AND TUBES: None. LUNGS AND PLEURA: Clear lungs. Normal pulmonary vascularity. No pleural effusion. No pneumothorax. HEART, MEDIASTINUM AND CATE: Heart is normal in size. Normal mediastinal and hilar contour. BONES AND SOFT TISSUES: Mild degenerative changes of the spine. IMPRESSION: No evidence of acute abnormality. I have personally reviewed the images and I agree with this report. WSN: [id number] Ordering Physician: Leonardo Morales Dictated By: Dennis Rush MD Dictated Date/Time: 05/25/22 8:54 am Reviewed By: Bry Snow MD Signed By: Bry Snow MD Signed Date/Time: 05/25/22 8:59 am Transcribed By: ARON Transcribed Date/Time: 05/25/22 8:41 am US Abdomen RUQ * BHSPowerscribe , CIS S: TRANSCRIBE eDxter Chavez MD: VERIFY Event Display: Result: Authored Date: [id number] US RUQ Reason: Other:; Abdominal Pain; Clinical Question(s): Cholecystitis COMPARISON: CT abdomen and pelvis from 05/23/2022 FINDINGS: Liver: Suboptimal evaluation of left hepatic lobe due to patient anatomy and overlying bowel gas. Normal in size and echotexture. No focal lesion. Smooth hepatic contour. Main portal vein patent withnormal hepatopetal direction of flow. Gallbladder: No gallstones. Normal wall thickness. No pericholecystic fluid. Negative Walker sign. Biliary Tree: No intrahepatic or extrahepatic bile duct dilation is identified. Common duct measures: 0.4 cm. Pancreas: Obscured by overlying bowel gas. Right kidney: 9.9 cm in length. Rotated right kidney located in the upper pelvis. Normal parenchymal echotexture and thickness. No hydronephrosis, stone or mass. IMPRESSION: Suboptimal evaluation of the left hepatic lobe and pancreas due to overlying bowel gas and patient anatomy. Unremarkable right upper quadrant ultrasound. No evidence of acute cholecystitis. WSN: [id number] Ordering Physician: Leonardo Morales Dictated By: Dexter Chavez MD Dictated Date/Time: 05/25/22 8:42 am Reviewed By: Dexter hCavez MD Signed By: Dexter Chavez MD Signed Date/Time: 05/25/22 8:42 am Transcribed By: ARON Transcribed Date/Time: 05/25/22 8:36 am Patient Care team information Care Team Personnel Name: Ana CROWELL, Nuvia Chavira Position: [facility] RN Member Role: Primary Care Nurse Name: Pepe Dias Position: [facility] Outreach Member Role: PCP Address: Address: [address] [place] [address]- Name: Tiffany Holt RN Position: [facility] ED RN W/OE and Tasks Member Role: Patient Care Provider Name: Leonardo Morales MD Position: [facility] Resident Member Role: Admitting Physician Address: Address: [address] [place] [address] [place] [address]- Name: Kathie Meyer Position: [facility] ED TA [facility] Member Role: Patient Care Provider Care Team Related Persons Name: SOLANGEREMIABRAHAM Address: home [address] [place] [address]
--- OUTSIDE RECORDS SUMMARY | 2023-06-10 18:25 | XMS_ITS | Continuity of Care Document ---
Author Name Unknown Organization [facility] Address [address] [place] [address]- Care Team Providers Care Debubblizer Name Role Phone Yohan MONTGOMERY, Pepe Primary Care Physician [place] [facility] [place] [facility] [address] [place] [address]- Allergies, Adverse Reactions, Alerts No Known Allergies [...] 04/02/22 9:51:00 EST, Route to Pharmacy Electronically, [facility], Partial fill upon patient request if the prescription is for a schedule II opioid... Start Date: 04/02/22 Stop Date: 06/01/22 Status: Ordered Cardizem CD 120 mg/24 hours oral capsule, extended release 120 mg, 1, capsule, By Mouth, Daily, # 30 capsule, Refills 1, Tot. Refills 1, Maintenance, 239:51:00 EST, Route to Pharmacy Electronically, [facility], Partial fill upon patient request if the prescription is for a schedule II opi... Start Date: 04/02/22 Stop Date: 06/01/22 Status: Ordered famotidine 20 mg oral tablet 20 mg, 1, tablet, By Mouth, 2 times a day, # 180 tablet, Refills 0, Tot. Refills 0, Maintenance, 06/23/22 11:07:00 EDT, Route to Pharmacy Electronically, [facility] #[id number], Partial fill upon patient request if the prescription is for a sched... Start Date: 06/23/22 Status: Ordered ondansetron 4 mg oral tablet, disintegrating 1 tablet = 4 mg, By Mouth, Every 6 hours, PRN as needed for nausea/vomiting, # 12 tablet, 0 Refills, Maintenance, 06/15/22 11:59:00 EDT, DIS Tablet, [facility] #[id number], Partial fill upon patient request if the [...] Personnel Name: Ana CROWELL, Nuvia Chavira Position: [facility] RN Member Role: Primary Care Nurse Name: Pepe Dias Position: S Outreach Member Role: PCP Address: Address: [address] [place] [address]- Care Team Related Persons Name: ABRAHAM NARVAEZ Address: home [address] [place] [address]
--- OUTSIDE RECORDS SUMMARY | 2023-06-10 18:25 | XMS_ITS | Continuity of Care Document ---
Author Name Unknown Organization [facility] ter Address [address] [place] [id number]- Care Team Providers Care Barrel Header Name Role Phone Pepe Dias Primary Care Phys[id number] Date(s): [facility]/23 - 03/01/[address] [address]- Encounter Diagnosis Palpitations(Final) - 03/01/23 Abdominal pain(Final) - 03/01/23 Numbness and tingling of left arm and leg(Final) - 03/01/23 Discharge Disposition: A-D/C Home Attending Physician: Patti Buchanna MD Admitting Physician: Patti Buchanan MD Referring Physician: Not on Staff, Referring [...] 02/02/23 9:04:00 EST, Route to Pharmacy Electronically, [facility], Partial fill upon patient request if... Start Date: 02/02/23 Stop Date: 03/04/23 Status: Ordered hydrOXYzine pamoate 50 mg oral capsule 1 capsule = 50 mg, By Mouth, 4 times a day, TAKE 1 CAPSULE BY MOUTH UP TO FOUR TIMES DAILY NEEDED FOR MILD TO MODERATE ANXIETY, # 60 capsule, 0 Refills, Maintenance, 02/02/23 9:04:00 EST, Capsule,[facility], Partial fill upon patient... Start [...] 02/02/23 9:10:00 EST, Route to Pharmacy Electronically, [facility], Partial fill upon patient request [...] Exam Date Time Procedure Performing Provider Status 03/01/23 9:[address] Angio Neck Colon , Treva; Auth ( Verified) Notes: (CT Angio Neck) Reason For Exam: Aneurysm, neck vessel(s);Other: RESULT: CT Angio Neck CT Angio Head, CT Angio Neck Hx of Present Illness: pt with upper abd pain x 2 days making my heart irregular ; Reason: Other:; Transient ischemic attack (TIA); Clinical Question(s): Other:; Hematoma Aneurysm / Other: TECHNIQUE: CT angiogram of the head and neck was performed after bolus administration of intravenous contrast. 100 mL of Omnipaque 300 was administered intravenously. Coronal and sagittal MIP reformatted images were obtained. Additional 3-D images were created on a separate workstation under concurrent supervision by the attending radiologist. All stenoses are measured using NASCET criteria. Weight-based protocol using automatic tube modulation was used to optimize exposure parameters. RADIATION DOSE PARAMETERS: CTDIvol Body: 13.12 mGy, DLP Body: 1384 mGy*cm. COMPARISON: Noncontrast CT head performed concurrently. FINDINGS: There is a 2 vessel arch. The supraaortic proximal great neck vessels appear normal in caliber and appearance. No hemodynamically significant stenosis. The right common carotid artery is normal in caliber. The right carotid bulb has mild mural calcifications extending to the right proximal internal carotid artery. The right proximal ICA shows 0% stenosis by NASCET criteria. The left common carotid artery is normal in caliber. The left carotid bulb has mild mural calcifications extending to the left proximal internal carotid artery. The left proximal ICA shows 0% stenosis by NASCET criteria. Right vertebral artery: Dominant. Patent without stenosis. Left vertebral artery: Patent without stenosis. Cervical spine: No acute pathology. Minimal spondylosis at C5-C6 and C6-C7 levels. Soft tissues and lung apices: The visualized upper lungs are clear. Bilateral thyroid lobes are normal. Punctate calcifications of bilateral lingual tonsils could be due to prior infection. [place]: Concurrent CT of head showed no acute pathology. Bilateral internal carotid arteries at the skull base appear normal in calibers and appearance. No definite stenosis is seen. Bilateral posterior communicating arteries are not visualized. No posterior communicating artery aneurysm is seen. The right A1 segment is hypoplastic. The left A2 segment is also hypoplastic. A dominant right A2 segment supplies the pericallosal branches. These are normal variants. Otherwise ACAs, MCAs and theirbranches are patent. No stenosis or vessel cut off is seen. No definite aneurysm is noted. Bilateral intracranial vertebral arteries show no definite stenosis. The vertebrobasilar junction is normal. The basilar artery is normal. No stenosis or dissection is seen. There is no basilar tip aneurysm. Bilateral grey stock recorder and their branches are patent. The superior sagittal sinuses, the straight sinus, bilateral transverse and sigmoid sinuses: Patentwithout dural sinus thrombosis. IMPRESSION: No cutoff or high-grade stenosis of the major branches of the intracranial arteries. No aneurysm, stenosis, or vascular malformations present. The right proximal internal carotid artery show no significant stenosis by NASCET criteria. The left proximal internal carotid artery show no significant stenosis by NASCET criteria. The right cervical vertebral artery shows no significant stenosis. The left cervical vertebral artery shows no significant stenosis. REFERENCE: NASCET Criteria: The degree of internal carotid stenosis is based on NASCET Criteria: Normal: No stenosis Mild: Less than 50% stenosis Moderate: 50-69% stenosis Severe: 70-99% stenosis Total occlusion: No detectable patent lumen. The preliminary reports were given by the [facility]. WSN: [id number] Ordering Physician: Patti Buchanan Dictated By: Catarino Holbrook MD Dictated Date/Time: 03/02/23 8:12 am Reviewed By: Catarino Holbrook MD Signed By: Catarino Holbrook MD Signed Date/Time: 03/02/23 8:12 am Transcribed By: ARON Transcribed Date/Time: 03/02/23 8:06 am * Exam Date Time Procedure Performing Provider Status 03/01/23 9:[address] Angio Head Colon , Treva; Auth ( Verified) Notes: (CT Angio Head) Reason For Exam: Transient ischemic attack (TIA);Other: RESULT: CT Angio Head CT Angio Head, CT Angio Neck Hx of Present Illness: pt with upper abd pain x 2 days making my heart irregular ; Reason: Other:; Transient ischemic attack (TIA); Clinical Question(s): Other:; Hematoma Aneurysm / Other: TECHNIQUE: CT angiogram of the head and neck was performed after bolus administration of intravenous contrast. 100 mL of Omnipaque 300 was administered intravenously. Coronal and sagittal MIP reformatted images were obtained. Additional 3-D images were created on a separate workstation under concurrent supervision by the attending radiologist. All stenoses are measured using NASCET criteria. Weight-based protocol using automatic tube modulation was used to optimize exposure parameters. RADIATION DOSE PARAMETERS: CTDIvol Body: 13.12 mGy, DLP Body: 1384 mGy*cm. COMPARISON: Noncontrast CT head performed concurrently. FINDINGS: There is a 2 vessel arch. The supraaortic proximal great neck vessels appear normal in caliber and appearance. No hemodynamically significant stenosis. The right common carotid artery is normal in caliber. The right carotid bulb has mild mural calcifications extending to the right proximal internal carotid artery. The right proximal ICA shows 0% stenosis by NASCET criteria. The left common carotid artery is normal in caliber. The left carotid bulb has mild mural calcifications extending to the left proximal internal carotid artery. The left proximal ICA shows 0% stenosis by NASCET criteria. Right vertebral artery: Dominant. Patent without stenosis. Left vertebral artery: Patent without stenosis. Cervical spine: No acute pathology. Minimal spondylosis at C5-C6 and C6-C7 levels. Soft tissues and lung apices: The visualized upper lungs are clear. Bilateral thyroid lobes are normal. Punctate calcifications of bilateral lingual tonsils could be due to prior infection. [place]: Concurrent CT of head showed no acute pathology. Bilateral internal carotid arteries at the skull base appear normal in calibers and appearance. No definite stenosis is seen. Bilateral posterior communicating arteries are not visualized. No posterior communicating artery aneurysm is seen. The right A1 segment is hypoplastic. The left A2 segment is also hypoplastic. A dominant right A2 segment supplies the pericallosal branches. These are normal variants. Otherwise ACAs, MCAs and theirbranches are patent. No stenosis or vessel cut off is seen. No definite aneurysm is noted. Bilateral intracranial vertebral arteries show no definite stenosis. The vertebrobasilar junction is normal. The basilar artery is normal. No stenosis or dissection is seen. There is no basilar tip aneurysm. Bilateral grey stock recorder and their branches are patent. The superior sagittal sinuses, the straight sinus, bilateral transverse and sigmoid sinuses: Patentwithout dural sinus thrombosis. IMPRESSION: No cutoff or high-grade stenosis of the major branches of the intracranial arteries. No aneurysm, stenosis, or vascular malformations present. The right proximal internal carotid artery show no significant stenosis by NASCET criteria. The left proximal internal carotid artery show no significant stenosis by NASCET criteria. The right cervical vertebral artery shows no significant stenosis. The left cervical vertebral artery shows no significant stenosis. REFERENCE: NASCET Criteria: The degree of internal carotid stenosis is based on NASCET Criteria: Normal: No stenosis Mild: Less than 50% stenosis Moderate: 50-69% stenosis Severe: 70-99% stenosis Total occlusion: No detectable patent lumen. The preliminary reports were given by the [facility]. WSN: [id number] Ordering Physician: Patti Buchanan Dictated By: Catarino Holbrook MD Dictated Date/Time: 03/02/23 8:12 am Reviewed By: Catarino Holbrook MD Signed By: Catarino Holbrook MD Signed Date/Time: 03/02/23 8:12 am Transcribed By: ARON Transcribed Date/Time: 03/02/23 8:06 am * Exam Date Time Procedure Performing Provider Status 03/01/23 9:[address] Abd/Pelvis W/ IV Contrast Only Colon , Treva; Auth (Verified) Notes: (CT Abd/Pelvis W/ IV Contrast Only) Reason For Exam: Pain RESULT: CT Abd/Pelvis W/ IV Contrast Only CT Abd/Pelvis W/ IV Contrast Only Hx of Present Illness: pt with upper abd pain x 2 days making my heart irregular ; Reason: Pain; Clinical Question(s): Obstruction TECHNIQUE: Spiral CT through the abdomen and pelvis with IV contrast formatted in 3 planes. 100 cc of Omnipaque 300 was administered intravenously. This study was performed without oral contrast. Weight-based protocol using automatic tube modulation was used to optimize exposure parameters. COMPARISON: Multiple priors most recently 01/24/2023 FINDINGS: Gas Furnace Installer View Findings, Lines and Tubes: None. Visualized Chest: Bibasilar atelectasis, lungs are otherwise clear. No pleural effusion. The heart is normal in size. No pericardial effusion. Diaphragm: Normal. Liver: Normal. Gallbladder: No CT evidence of gallbladder pathology. Bile ducts: No biliary ductal dilation. Spleen: Normal. Pancreas: Mild fatty atrophy without suspicious ductal dilation. Adrenal glands: Normal. 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 No hydronephrosis, stones, or suspicious masses. Bladder: There are distended. Reproductive organs: Unremarkable. Stomach, small bowel, and large bowel: No evidence of obstruction or inflammation. Appendix: Normal. Peritoneum and retroperitoneum: No ascites or pneumoperitoneum. No omental or mesenteric lesions. Lymph nodes: No enlarged lymph nodes. Blood vessels: Mild vascular calcifications but no aneurysm. No evidence of venous thrombosis. Abdominal and pelvic wall: Small fat-containing umbilical and bilateral inguinal hernias. Bones: No acute abnormality. IMPRESSION: No acute process. I have personally reviewed the images and I agree with this report. WSN: [id number] Ordering Physician: Patti Buchanan Dictated By: Hilary Wang DO Dictated Date/Time: 03/01/23 10:21 p Reviewed By: Dexter Prescott MD Signed By: Dexter Prescott MD Signed Date/Time: 03/01/23 10:26 pm Transcribed By: ARON Transcribed Date/Time: 03/01/23 10:10 pm * Exam Date Time Procedure Performing Provider Status 03/01/23 9:46 PM Chest 2 Views Frontal and Lat Edgardo Bailey; Auth (Verified) Notes: (Chest 2 Views Frontal and Lat) Reason For Exam: TIA, C/Q CHF;Other: RESULT: Chest 2 Views Frontal and Lat Chest 2 Views Frontal and Lat Hx of Present Illness: pt with upper abd pain x 2 days making my heart irregular ; Reason: Other:; TIA, C Q CHF; Clinical Question(s): Pneumonia COMPARISON: 01/24/2023 FINDINGS: LINES AND TUBES: None. LUNGS AND PLEURA: Clear lungs. Normal pulmonary vascularity. No pleural effusion. No pneumothorax. HEART, MEDIASTINUM AND CATE: Heart is normal in size. Normal mediastinal and hilar contour. BONES AND SOFT TISSUES: No acute abnormality. IMPRESSION: No acute abnormality. WSN: [id number] Ordering Physician: Patti Buchanan Dictated By: Dexter Prescott MD Dictated Date/Time: 03/01/23 9:48 pm Reviewed By: Dexter Prescott MD Signed By: Dexter Prescott MD Signed Date/Time: 03/01/23 9:48 pm Transcribed By: ARON Transcribed Date/Time: 03/01/23 9:48 pm * Exam Date Time Procedure Performing Provider Status 03/01/23 9:[address] Head/Brain W/O Contrast Colon , Ta blayne; Auth (Verified) Notes: (CT Head/Brain W/O Contrast) Reason For Exam: Transient ischemic attack (TIA);Other: RESULT: CT Head/Brain W/O Contrast CT Head/Brain W/O Contrast INDICATION: Hx of Present Illness: pt with upper abd pain x 2 days making my heart irregular ; Reason: Other:; Transient ischemic attack (TIA); Clinical Question(s): Other:; Hematoma Infarction TECHNIQUE: Noncontrast head CT using axial technique and reconstructed in axial and coronal planes.Iterative reconstruction techniques are used to optimize dose and image quality. COMPARISON: 01/24/2023 FINDINGS: Gas Furnace Installer view findings, lines and tubes: None. BRAIN [...] unremarkable. IMPRESSION: No acute intracranial pathology. WSN: [id number] Ordering Physician: Patti Buchanan Dictated By: Vernon Ling MD Dictated Date/Time: 03/01/23 9:48 pm Reviewed By: Vernon Ling MD Signed By: Vernon Ling MD Signed Date/Time: 03/01/23 9:48 pm Transcribed By: ARON Transcribed Date/Time: 03/01/23 9:46 pm Vital Signs Most recent to oldest [Reference Range]: 1 2 Height 180 cm (03/01/23 8:42 PM) 180 cm (03/01/23 1:45 PM) Oxygen Saturation [94-100 %] 98 % (03/01/23 8:42 PM) 97 % (03/01/23 1:45 PM) Pulse Rate [55-90 bpm] 74 bpm (03/01/23 8:42 PM) 91 bpm *H* (03/01/23 1:45 PM) Blood Pressure [90-138/55-84 mm Hg] 139/ 87mm Hg *H* (03/01/23 8:42 PM) 141/83mm Hg *H* (03/01/23 1:45 PM) Respiratory Rate [16-30 br/min] 18 br/mi n (03/01/23 8:42 PM) 17 br/min (03/01/23 1:45 PM) Temperature [96.8-100.4 DegF] 98.2 DegF (03/01/23 8:42 PM) 97.8 DegF (03/01/23 1:45 PM) Mode of Delivery (Oxygen) Room air (03/01/23 8:42 PM) Room air (03/01/23 1:45 PM) Blood pressure sites Arm, right (03/01/23 8:42 PM) Arm, left (03/01/23 1:45 PM) Temperature Route Oral (03/01/23 8:42 PM) Oral (03/01/23 1:45 PM) Dry Weight 84.5 kg (03/01/23 8:42 PM) 84.5 kg (03/01/23 1:45 PM) Social History Social History Type Response Smoking Status 10 or more cigarette s (1/2 pack or more)/day in last 30 days entered on: 05/07/22 Sex EKG study * Event Display: ECG 12-Lead Authored Date: Please click on pdf link to open report * Event Display: ECG 12-Lead Authored Date: Ventricular Rate: 68 BPM Atrial Rate: 68 BPM P-R Interval: 144 ms QRS Duration: 90 ms Q-T Interval: 378 ms QTC Calculation(Bazett): 401 ms P [place]: 68 degrees R [place]: 55 degrees T [place]: 67 degrees Normal sinus rhythm Normal ECG When compared with ECG of 02-FEB-2023 15:13, No significant change was found Confirmed by CHRISTO CURRY MD ([id number]) on 03/01/2023 8:26:39 PM Rossiter: CHRISTO CURRY MD Note * Diann Martínez NP: PERFORM Event Display: Patient Education Leaflets Authored Date: [id number] Unknown Causes of Abdominal Pain(Adult) ?? [id number] Unknown Causes of Abdominal Pain(Adult) The exact [...] period ?? Last Reviewed Date: 2021 ?? [id number] [employer]. All rights reserved. This information is not intended as a substitute for professional medical care. Always follow your healthcare professional's instructions. ?? Patient Care team information Care Team Personnel Name: Nuvia Perez RN Position: [facility] RN Member Role: Primary Care Nurse Name: John Joaquin RN Position: [facility] RN Member Role: Primary Care Nurse Name: Dilcia Hartmann Position: [facility] RN Member Role: Primary Care Nurse Name: Kavita Laguna RN Position: [facility] RN Member Role: Primary Care Nurse Name: Pepe Dias Position: [facility] Outreach Member Role: PCP Address: Address: [address] [place] [address]- [place] Name: Bhupendra Gonzalez RN Position: [facility] RN Member Role: Primary Care Nurse Name: Yenny Vergara Position: [facility] RN Member Role: Primary Care Nurse Name: Patti Buchanan MD Position: [facility] ED Medicine MD Member Role: Admitting Physician Address: Address: [address] [place] [address]- [place] Name: Chava Jauregui RN Position: [facility] ED RN W/OE and Tasks Member Role: Patient Care Provider Name: Diann Martínez NP Position: [facility] Associate Professional Member Role: ED Physician Jewel Sawyer Address: Address: [address] [place] [address] [place] [address]- [place] Care Team Related Persons Name: ABRAHAM NARVAEZ Address: home [address] [place] [address]
--- OUTSIDE RECORDS SUMMARY | 2023-06-10 18:25 | XMS_ITS | Continuity of Care Document ---
Author Name Unknown Organization [facility] ter Address [address] [place] [address]- Care Team Providers Care Forest Science Professor Name Role Phone Pepe Dias Primary Care Physician Encounter [facility] Date(s): 05/25/22 - 05/25/[address] [address]- Discharge Disposition: A-D/C Walkout Attending Physician: Not [...] 04/02/22 9:51:00 EST, Route to Pharmacy Electronically, [facility], Partial fill upon patient request if the prescription is for a schedule II opioid... Start Date: 04/02/22 Stop Date: 06/01/22 Status: Ordered Cardizem CD 120 mg/24 hours oral capsule, extended release 120 mg, 1, capsule, By Mouth, Daily, # 30 capsule, Refills 1, Tot. Refills 1, Maintenance, 239:51:00 EST, Route to Pharmacy Electronically, [facility], Partial fill upon patient request [...] recent to oldest [Reference Range]: 1 2 Oxygen Saturation [94-100 %] 98 % (05/25/22 6:44 PM) 98 % (05/25/22 3:26 PM) Pulse Rate [55-90 bpm] 72 bpm (05/25/22 6:44 PM) 70 bpm (05/25/22 3:26 PM) Blood Pressure [90-138/55-84 mm Hg] 134/ 98mm Hg (05/25/22 6:44 PM) 132/83mm Hg (05/25/22 3:26 PM) Respiratory Rate [16-30 br/min] 18 br/mi n (05/25/22 3:26 PM) Temperature [96.8-100.4 DegF] 98.0 DegF (05/25/22 6:44 PM) 98 DegF (05/25/22 3:26 PM) Mode of Delivery (Oxygen) Room air (05/25/22 6:44 PM) Room air (05/25/22 3:26 PM) Blood pressure sites Arm, right (05/25/22 6:44 PM) Arm, left (05/25/22 3:26 PM) Temperature Route Oral (05/25/22 6:44 PM) Oral (05/25/22 3:26 PM) Social History Social History Type Response Smoking Status 10 or more cigarette s (1/2 pack or more)/day in last 30 days entered on: 05/07/22 Sex EKG study * Event Display: ECG 12-Lead Authored Date: Please click on pdf link to open report * Event Display: ECG 12-Lead Authored Date: Ventricular Rate: 71 BPM Atrial Rate: 71 BPM P-R Interval: 150 ms QRS Duration: 96 ms Q-T Interval: 400 ms QTC Calculation(Bazett): 434 ms P [place]: 62 degrees R [place]: 9 degrees T [place]: 39 degrees Normal sinus rhythm Normal ECG When compared with ECG of 25-MAY-2022 07:57, No significant change was found Confirmed by RONDA KHAN ([id number]) on 05/25/2022 4:13:32 PM [place]: RONDA KHAN * Event Display: EKG Authored Date: Patient Care team information Care Team Personnel Name: Ana CROWELL, Nuvia Chavira Position: S RN Member Role: Primary Care Nurse Name: Pepe Dias Position: [facility] Outreach Member Role: PCP Address: Address: [address] [place] [address]- Care Team Related Persons Name: ABRAHAM NARVAEZ Address: home [address] [place] [id number]
--- OUTSIDE RECORDS SUMMARY | 2023-06-10 18:25 | XMS_ITS | Continuity of Care Document ---
Author Name Unknown Organization [facility] ter Address [address] [place] [address]- Care Team Providers Care Outsole Paraffiner Name Role Phone Pepe Dias Primary Care Physician Encounter [facility] [place] [facility] R [id number] Date(s): 06/22/22 - 06/23/[address] [address]- Discharge Disposition: A-D/C Home Attending Physician: Juma [...] 04/02/22 9:51:00 EST, Route to Pharmacy Electronically, [facility], Partial fill upon patient request if the prescription is for a schedule II opioid... Start Date: 04/02/22 Stop Date: 06/01/22 Status: Ordered Cardizem CD 120 mg/24 hours oral capsule, extended release 120 mg, 1, capsule, By Mouth, Daily, # 30 capsule, Refills 1, Tot. Refills 1, Maintenance, 239:51:00 EST, Route to Pharmacy Electronically, [facility], Partial fill upon patient request if the prescription is for a schedule II opi... Start Date: 04/02/22 Stop Date: 06/01/22 Status: Ordered famotidine 20 mg oral tablet 20 mg, 1, tablet, By Mouth, 2 times a day, # 180 tablet, Refills 0, Tot. Refills 0, Maintenance, 06/23/22 11:07:00 EDT, Route to Pharmacy Electronically, [id number], Partial fill upon patient request if the prescription is for a sched... Start Date: 06/23/22 Status: Ordered ondansetron 4 mg oral tablet, disintegrating 1 tablet = 4 mg, By Mouth, Every 6 hours, PRN as needed for nausea/vomiting, # 12 tablet, 0 Refills, Maintenance, 06/15/22 11:59:00 EDT, DIS Tablet, [facility] #[id number], Partial fill upon patient request if the [...] Exam Date Time Procedure Performing Provider Status 06/23/22 9:57 AM US Doppler Ext Lower Venous Left Horn , Caar; Auth (Verified) Notes: (US Doppler Ext Lower Venous Left) Reason For Exam: Pain in limb;Other: RESULT: US Doppler Ext Lower Venous Left US Doppler Ext Lower Venous Left HX OF PRESENT ILLNESS: PT reports when he rest and relax he develops ringing to ears, feeling like a slow irregular heart beat for the last month. pt reports being seen multiple times for this issue with no dx. pt reports hx of Afib and was on a blood thinner for only 30days. COMPARISON: 05/27/2022. IMAGING TECHNIQUE: Ultrasound of the veins from [...] IMPRESSION: No evidence of deep venous thrombosis. I have personally reviewed the images and I agree with this report. WSN: [id number] Ordering Physician: Abraham Gordon Dictated By: Adrian Murillo MD Dictated Date/Time: 06/23/22 10:10 a Reviewed By: Dexter Chavez MD Signed By: Dexter Chavez MD Signed Date/Time: 06/23/22 10:15 am Transcribed By: ARON Transcribed Date/Time: 06/23/22 10:01 am Vital Signs Most recent to oldest [Reference Range]: 1 2 3 Oxygen Saturation [94-100 %] 95 % (06/23/22 8:20 AM) 99 % (06/23/22 6:41 AM) 99 % (06/23/22 2:53 AM) Pulse Rate [55-90 bpm] 68 bpm (06/23/22 8:20 AM) 70 bpm (06/23/22 6:41 AM) 77 bpm (06/23/22 2:53 AM) Blood Pressure [90-138/55-84 mm Hg] 137/90mm Hg (06/23/22 8:20 AM) 129/91mm Hg (06/23/22 6:41 AM) 136/88mm Hg (06/23/22 2:53 AM) Respiratory Rate [16-30 br/min] 19 br/min (06/23/22 8:20 AM) 16 br/min (06/23/22 2:53 AM) 18 br/min (06/22/22 5:39 PM) Temperature [96.8-100.4 DegF] 98.2 DegF (06/23/22 6:41 AM) 98.4 DegF (06/23/22 2:53 AM) 97.6 DegF (06/22/22 10:28 PM) Mode of Delivery (Oxygen) Room air (06/23/22 8:20 AM) Room air (06/23/22 6:41 AM) Room air (06/23/22 2:53 AM) Blood pressure sites Arm, left (06/23/22 8:20 AM) Arm, right (06/23/22 6:41 AM) Arm, left (06/23/22 2:53 AM) Temperature Route Oral (06/23/22 6:41 AM) Oral (06/23/22 2:53 AM) Oral (06/22/22 10:28 PM) Social History Social History Type Response Smoking Status 10 or more cigarette s (1/2 pack or more)/day in last 30 days entered on: 05/07/22 Sex EKG study * Event Display: ECG 12-Lead Authored Date: [id number] Please click on pdf link to open report * Event Display: ECG 12-Lead Authored Date: [id number] Ventricular Rate: 72 BPM Atrial Rate: 72 BPM P-R Interval: 144 ms QRS Duration: 104 ms Q-T Interval: 390 ms QTC Calculation(Bazett): 427 ms P [place]: 64 degrees R [place]: 28 degrees T [place]: 61 degrees Normal sinus rhythm Normal ECG When compared with ECG of 15-JUN-2022 09:23, No significant change was found Confirmed by JOSE MARIA SHAIKH MD ([id number]) on 06/23/2022 8:01:59 AM [place]: JOSE MARIA SHAIKH MD Note * Abraham Gordon DO: PERFORM, SIGN, VERIFY Event Display: Patient Education Handout Authored Date: [id number] * Juma Koch MD: PERFORM Event Display: Patient Education Leaflets Authored Date: [id number] Mindfulness ?? 625 ?? What is Mindfulness? Mindfulness is the act of being fully present??in??the??current??moment. This means??being aware ofwhere one is and what is going??on??around??them??without??reacting??to or being??overwhelmed by one???s surroundings. ?? People?? frequently?? use mindfulness as a method??to??step??away??from??their busy lives or to calm a racing mind. ?? Why?? Practice?? Mindfulness? ?? Numerous?? research?? studies have shown??that mindfulness can have many positive effects including: ??? Decreasing anxiety ??? Decreasing depression ??? Improving?? sleep ??? Improving memory ??? Allowing?? people to form??healthier??relationships ??? Improving?? overall quality of life ?? Some?? studies have even??suggested??that??mindfulness can benefit??people who suffer from physicalconditions including high??blood pressure, irritable??bowel??syndrome??and chronic pain. ?? Steps for Mindfulness ?? 1. Find a quiet place??where you will??not??be??disturbed for a few minutes. 2. Sit in a position??that is comfortable for you. This may be cross-legged??on a cushion on the floor, sitting in a chair, or even lying down. 3. Calm your??mind by closing??your eyes and??taking??a few deep??breaths,preferably in through??your??nose??and??out??through??your??mouth. 4. Slowly start to??become aware of??your??surroundings??through??your??senses. This may be the??feeling??of??the??surface??you are sittin g??on,sounds??you??hear??around??you, or scents that??you??smell. 5. Your mind will??wander, and that is okay.You may have thoughts??about??things that are upsetting??you or what??you??need??to??get??done in the??day.??Try??to??not??focus too much??on??these??thoughts.??Let thoughts pass you by and??gently??bring??your mind back to the??present??moment. 6. Whenever you feel ready,slowly open??your??eyes??and come back into??the?moment. ?? This may feel??awkward at first, but the more you??practice mindfulness, the better??you??will get at detaching from all of life???s stresses and taking time to check??in with your body. ?? Additiona l Resources ?? Websites: ??? Mindful: https://www.mindful.org ??? Free mindfulness:?? http://www.[employer].org ??? Pocket Mindfulness:??http://www.[employer].Groove Customer Support ??? [employer] Mindful [facility]areness??[facility] (available??in??10+ languages):??http://donte.[facility]/body.cfm?id=22 Phone?? Apps: ??? Head space ??? Calm ??? The Mindfulness??Taj ??? Insight Timer ??? Smiling Mind ??? [facility] Mindful ??? Healthy Minds??Program ?? There are also many??resources??available in places like [employer]??and??Spotify. ? Last Reviewed Date: 2020 This?? information is not intended as a substitute for professional medical care. Always follow??your??health animal care worker???s instruction. ?? * BHSPowerscribe , CIS S: TRANSCRIBE Lidia RENEE, Ahmed: SIGN Kathy RENEE, Dexter Ivan: VERIFY Event Display: Result: Authored Date: [id number] US Doppler Ext Lower Venous Left HX OF PRESENT ILLNESS: PT reports when he rest and relax he develops ringing to ears, feeling like a slow irregular heart beat for the last month. pt reports being seen multiple times for this issue with no dx. pt reports hx of Afib and was on a blood thinner for only 30days. COMPARISON: 05/27/2022. IMAGING TECHNIQUE: Ultrasound of the veins from [...] IMPRESSION: No evidence of deep venous thrombosis. I have personally reviewed the images and I agree with this report. WSN: [id number] Ordering Physician: Abraham Gordon Dictated By: Adrian Murillo MD Dictated Date/Time: 06/23/22 10:10 a Reviewed By: Dexter Chavez MD Signed By: Dextre Chavez MD Signed Date/Time: 06/23/22 10:15 am Transcribed By: ARON Transcribed Date/Time: 06/23/22 10:01 am Patient Care team information Care Team Personnel Name: Ana CROWELL, Nuvia Chavira Position: [facility] RN Member Role: Primary Care Nurse Name: Pepe Dias Position: [facility] Outreach Member Role: PCP Address: Address: [address] [place] [address]- Name: Abraham Gordon DO Position: [facility] Resident Member Role: ED Resident Address: Address: [address] [place] [address] [place] [address]- [place] Name: Juma Koch MD Position: [facility] ED Medicine MD Member Role: Admitting Physician Address: Address: [address] [place] [address]- Name: Adriane Raygoza Position: [facility] ED TA [facility] Member Role: Waste Examiner Care Team Related Persons Name: ABRAHAM NARVAEZ Address: home [address] [place] [address]
--- OUTSIDE RECORDS SUMMARY | 2023-06-10 18:25 | XMS_ITS | Continuity of Care Document ---
Author Name Unknown Organization [facility] Address [address] [address]- Care Team Providers Care Pit And Auxiliaries Supervisor Name Role Phone Lainey Zepeda DO Primary Care Physician Encounter [facility] [place] Date(s): 01/04/23 - 02/03/23 [facility] [address] [address]- Attending Physician: Dionna Delgado Admitting Physician: Admtr, Dionna Referring Physician: Admtr, Ar8 Allergies, Adverse Reactions, Alerts Substance Reaction Severity [...] 02/02/23 9:04:00 EST, Route to Pharmacy Electronically, [facility], Partial fill upon patient request if... Start Date: 02/02/23 Stop Date: 03/04/23 Status: Ordered hydrOXYzine pamoate 50 mg oral capsule 1 capsule = 50 mg, By Mouth, 4 times a day, TAKE 1 CAPSULE BY MOUTH UP TO FOUR TIMES DAILY NEEDED FOR MILD TO MODERATE ANXIETY, # 60 capsule, 0 Refills, Maintenance, 02/02/23 9:04:00 EST, Capsule,[facility], Partial fill upon patient... [...] 02/02/23 9:10:00 EST, Route to Pharmacy Electronically, [facility], Partial fill upon [...] study * Event Display: EKG Authored Date: [id number] Laboratory * Event Display: Laboratory Result Scanned Authored Date: XR Chest Views * Event Display: X-Ray Chest Authored Date: CT Abdomen * Event Display: CT Scan Abdomen Authored Date: * Event Display: CT Scan Abdomen Authored Date: MR Abdomen * Event Display: MRI Abdomen Authored Date: Patient Care team information Care Team Personnel Name: Nuvia Perez RN Position: [facility] RN Member Role: Primary Care Nurse Name: John Joaquin RN Position: [facility] RN Member Role: Primary Care Nurse Name: Dilcia Hartmann Position: [facility] RN Member Role: Primary Care Nurse Name: Kavita Laguna RN Position: [facility] RN Member Role: Primary Care Nurse Name: Lainey Zepeda DO Position: [facility] Physician - [facility] Medicine Member Role: PCP Address: Address: [address] [place] [address] Name: Bhupendra Gonzalez RN Position: S RN Member Role: Primary Care Nurse Name: Yenny Vergara Position: [facility] RN Member Role: Primary Care Nurse Care Team Related Persons Name: ABRAHAM NARVAEZ Address: home [address] [place] [address]
--- OUTSIDE RECORDS SUMMARY | 2023-06-10 18:25 | XMS_ITS | Continuity of Care Document ---
Author Name Unknown Organization [facility] ter Address [address] [place] [address]- Care Team Providers Care Epitaxial Reactor Operator Name Role Phone Pepe Dias Primary Care Physician [place] [facility] [place] - 05/27/[address] [address]- Discharge Disposition: A-D/C Home Attending Physician: Charan Davis MD Admitting Physician: Charan Davis MD Referring Physician: Not on Staff, Referring [...] 04/02/22 9:51:00 EST, Route to Pharmacy Electronically, [facility], Partial fill upon patient request if the prescription is for a schedule II opioid... Start Date: 04/02/22 Stop Date: 06/01/22 Status: Ordered Cardizem CD 120 mg/24 hours oral capsule, extended release 120 mg, 1, capsule, By Mouth, Daily, # 30 capsule, Refills 1, Tot. Refills 1, Maintenance, 239:51:00 EST, Route to Pharmacy Electronically, [facility], Partial fill upon patient [...] Exam Date Time Procedure Performing Provider Status 05/27/22 9:41 PM US Doppler Ext Lower Venous Left Bonita Russell; Auth (Verified) Notes: (US Doppler Ext Lower Venous Left) Reason For Exam: Pain in limb;Other: RESULT: US Doppler Ext Lower Venous Left US Doppler Ext Lower Venous Left Hx of Present Illness: left posterior knee pain since yesterday; Reason: Pain in limb; Clinical Question(s): Thrombus COMPARISON: [...] and I agree with this report. WSN: [id number] Ordering Physician: Jonatan Garcia Dictated By: Miryam Dukes MD Dictated Date/Time: 05/27/22 9:47 pm Reviewed By: Veronika Kern MD Signed By: Veronika Kern MD Signed Date/Time: 05/27/22 9:52 pm Transcribed By: ARON Transcribed Date/Time: 05/27/22 9:42 pm Vital Signs Most recent to oldest [Reference Range]: 1 Oxygen Saturation [94-100 %] 100 % (05/27/22 7:55 PM) Pulse Rate [55-90 bpm] 88 bpm (05/27/22 7:55 PM) Blood Pressure [90-138/55-84 mm Hg] 158/ 99mm Hg *H* (05/27/22 7:55 PM) Temperature [96.8-100.4 DegF] 98.4 DegF (05/27/22 7:55 PM) Mode of Delivery (Oxygen) Room air (05/27/22 7:55 PM) Blood pressure sites Arm, right (05/27/22 7:55 PM) Temperature Route Oral (05/27/22 7:55 PM) Social History Social History Type Response Smoking Status 10 or more cigarette s (1/2 pack or more)/day in last 30 days entered on: 05/07/22 Sex Note * BHSPowerscribe , CIS S: TRANSCRIBE Veronika Kern MD: VERIFY Miryam Dukes MD: SIGN Event Display: Result: Authored Date: US Doppler Ext Lower Venous Left Hx of Present Illness: left posterior knee pain since yesterday; Reason: Pain in limb; Clinical Question(s): Thrombus COMPARISON: [...] and I agree with this report. WSN: [id number] Ordering Physician: Jonatan Garcia Dictated By: Miryam Dukes MD Dictated Date/Time: 05/27/22 9:47 pm Reviewed By: Veronika Kern MD Signed By: Veronika Kern MD Signed Date/Time: 05/27/22 9:52 pm Transcribed By: ARON Transcribed Date/Time: 05/27/22 9:42 pm Patient Care team information Care Team Personnel Name: Ana CROWELL, Nuvia Chavira Position: [facility] RN Member Role: Primary Care Nurse Name: Pepe Dias Position: [facility] Outreach Member Role: PCP Address: Address: [address] [place] [address]- Name: Charan Davis MD Position: [facility] ED Medicine MD Member Role: Admitting Physician Address: Address: [address] [place] [address] [place] [address]- Name: Tg Mckeon RN Position: [facility] ED RN W/OE and Tasks Member Role: Patient Care Provider Care Team Related Persons Name: ABRAHAM NARVAEZ Address: home [address] [place] [address]
--- OUTSIDE RECORDS SUMMARY | 2023-06-10 18:25 | XMS_ITS | Continuity of Care Document ---
Author Name Unknown Organization [facility] Address [address] [place] [address]- Care Team Providers Care Records Management Technician Name Role Phone Pepe Dias Primary Care Physician Encounter [facility] [place] Date(s): 06/21/22 - 07/21/22 [facility] [address] [place] [address]- Attending Physician: Dionna Delgado Admitting Physician: Dionna Delgado Referring Physician: AdmtrDionna Allergies, Adverse Reactions, Alerts No Known Allergies [...] 04/02/22 9:51:00 EST, Route to Pharmacy Electronically, [facility], Partial fill upon patient request if the prescription is for a schedule II opioid... Start Date: 04/02/22 Stop Date: 06/01/22 Status: Ordered Cardizem CD 120 mg/24 hours oral capsule, extended release 120 mg, 1, capsule, By Mouth, Daily, # 30 capsule, Refills 1, Tot. Refills 1, Maintenance, 239:51:00 EST, Route to Pharmacy Electronically, [facility], Partial fill upon patient request if the prescription is for a schedule II opi... Start Date: 04/02/22 Stop Date: 06/01/22 Status: Ordered famotidine 20 mg oral tablet 20 mg, 1, tablet, By Mouth, 2 times a day, # 180 tablet, Refills 0, Tot. Refills 0, Maintenance, 06/23/22 11:07:00 EDT, Route to Pharmacy Electronically, [id number], Partial fill upon patient request if the prescription is for a sched... Start Date: 06/23/22 Status: Ordered ondansetron 4 mg oral tablet, disintegrating 1 tablet = 4 mg, By Mouth, Every 6 hours, PRN as needed for nausea/vomiting, # 12 tablet, 0 Refills, Maintenance, 06/15/22 11:59:00 EDT, DIS Tablet, [id number], Partial fill upon patient request if the [...] Date: Radiology * Event Display: CT Scan Head, Non- BH Authored Date: * Event Display: Ultrasound Abdomen, Non- Authored Date: Patient Care team information Care Team Personnel Name: Ana CROWELL, Nuvia Chavira Position: S RN Member Role: Primary Care Nurse Name: Pepe Dias Position: [facility] Outreach Member Role: PCP Address: Address: [address] [place] [address]- Care Team Related Persons Name: ABRAHAM NARVAEZ Address: home [address] [place] [address]
--- OUTSIDE RECORDS SUMMARY | 2023-06-10 18:25 | XMS_ITS | Continuity of Care Document ---
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 Start Date: 02/02/23 Stop Date: 03/04/23 Status: Ordered gabapentin 100 mg oral capsule 100 mg, Capsule, By Mouth, 02/02/23 9:00:00 EST Start Date: 02/02/23 Stop Date: 02/02/23 Status: Completed hydrOXYzine pamoate 50 mg oral capsule 1 capsule = 50 mg, By Mouth, 4 times a day, TAKE 1 CAPSULE BY MOUTH UP TO FOUR TIMES DAILY NEEDED FOR MILD TO MODERATE ANXIETY, # 60 capsule, 0 Refills, Maintenance, 02/02/23 9:04:00 EST, Capsule,[facility], Partial fill upon patient... Start Date: 02/02/23 Status: Ordered LORazepam 1 mg oral tablet TAKE 0.5-1 TABLET BY MOUTH TWICE DAILY NEEDED FOR SEVERE ANXIETY Start Date: 02/02/23 Status: Ordered Melatonin 10 mg oral tablet, disintegrating TAKE 1 TABLET BY MOUTH DAILY DIRECTED BEFORE SLEEP Start Date: 02/02/23 Status: Ordered metoprolol 25 mg oral tablet 25 mg, Tablet, By Mouth, 02/02/23 9:00:00 EST Start Date: 02/02/23 Stop Date: 02/02/23 Status: Completed metoprolol 25 mg oral tablet 25 mg, 1, tablet, By Mouth, 2 times a day, # 60 tablet, Refills 0, Tot. Refills 0, Maintenance, 02/02/23 9:10:00 EST, Route to Pharmacy Electronically, [facility], Partial fill upon [...] Confirmation Course Effective Dates Status [facility] at [facility] GERD (gastroesophageal reflux disease) Confirmed Active ISRAEL (generalized anxiety disorder) Confirmed Active History of alcohol use disorder Confirmed Active Opiate dependence Confirmed Active Paroxysmal atrial fibrillation Confirmed Active Results Radiology Reports * Exam Date Time Procedure Performing Provider Status 02/01/23 10:[address] Angio Abdomen Loreta Donahue; Auth (Verified) Notes: (CT Angio Abdomen) Reason For Exam: Renal artery dissection suspected;Other: RESULT: CT Angio Abdomen EXAMINATION: CT Angio Chest, CT Angio Abdomen INDICATION: Hx of Present Illness: palpitations today and HX A Fib; Reason: Other:; Aortic disease,nontraumatic; Clinical Question(s): Other:; Aortic Dissection TECHNIQUE: An initial noncontrast CT of the chest was performed. Spiral CTA of the chest and abdomen was performed after rapid IV contrast administration without cardiac gating triggered by an SUYAPA onthe aorta. Images are formatted in multiple planes using 2-D multiplanar and 3-D maximum intensity projection. Obliqued images through the aortic root were reconstructed. 100 cc of Omnipaque 300 was administered intravenously. Weight-based protocol using automatic tube modulation was used to optimize exposure parameters. CTDIvol Body: 8.52 mGy, DLP Body: 391 mGy*cm. COMPARISONS: 01/24/2023. ANGIOGRAPHIC FINDINGS: No aortic dissection or aneurysm. The right brachiocephalic and left common carotid arteries share a common origin, a normal anatomic variant. Pulmonary arteries are normal in caliber. No evidence of central pulmonary embolism on this study performed without dedicated technique. Abdominal aorta: No aortic aneurysm or dissection. Mild atherosclerotic calcifications. Celiac axis: Patent. Superior mesenteric artery: Patent. Right renal artery: Patent. Left renal artery: Patent. Inferior mesenteric artery: Patent. Visualized iliac arteries: Patent. NON-ANGIOGRAPHIC FINDINGS: Dual Rate Dealer View Findings, Lines and Tubes: None. Trachea and Airways: Patent without evidence of tracheal or endobronchial lesion. Lungs and Pleura: Clear lungs. No effusion or pneumothorax. Mediastinum and abraham: No mass or hematoma. No mediastinal or hilar lymphadenopathy. No esophageal abnormality. Heart: Heart is normal in size. No pericardial effusion. Punctate calcification in the RCA. Chest Wall Soft Tissues: Normal. Diaphragm: No significant abnormality. Liver: Normal. Gallbladder: No CT evidence of gallbladder pathology. Bile ducts: No biliary ductal dilation. Spleen: Normal. Pancreas: Mild atrophy. No focal abnormality or ductal dilatation. Adrenal glands: Normal. Kidneys and ureters: Partially visualized ptotic right kidney located in the right hemipelvis. No hydronephrosis, stones, or suspicious masses. Stomach, small bowel, and large bowel: Visualized stomach and bowel are normal. Peritoneum and retroperitoneum: No ascites or pneumoperitoneum. No omental or mesenteric lesions. Lymph nodes: No enlarged lymph nodes. Abdominal wall: Unremarkable. Bones: No acute abnormality. IMPRESSION: No aortic aneurysm or dissection. WSN: [id number] Ordering Physician: Jeannie Thomas Dictated By: Veronika Kern MD Dictated Date/Time: 02/01/23 10:29 p Reviewed By: Veronika Kern MD Signed By: Veronika Kern MD Signed Date/Time: 02/01/23 10:29 pm Transcribed By: ARON Transcribed Date/Time: 02/01/23 10:19 pm * Exam Date Time Procedure Performing Provider Status 02/01/23 10:[address] Angio Chest Loreta Donhaue; Au th (Verified) Notes: (CT Angio Chest) Reason For Exam: Aortic disease, nontraumatic;Other: RESULT: CT Angio Chest EXAMINATION: CT Angio Chest, CT Angio Abdomen INDICATION: Hx of Present Illness: palpitations today and HX A Fib; Reason: Other:; Aortic disease,nontraumatic; Clinical Question(s): Other:; Aortic Dissection TECHNIQUE: An initial noncontrast CT of the chest was performed. Spiral CTA of the chest and abdomen was performed after rapid IV contrast administration without cardiac gating triggered by an SUYAPA onthe aorta. Images are formatted in multiple planes using 2-D multiplanar and 3-D maximum intensity projection. Obliqued images through the aortic root were reconstructed. 100 cc of Omnipaque 300 was administered intravenously. Weight-based protocol using automatic tube modulation was used to optimize exposure parameters. CTDIvol Body: 8.52 mGy, DLP Body: 391 mGy*cm. COMPARISONS: 01/24/2023. ANGIOGRAPHIC FINDINGS: No aortic dissection or aneurysm. The right brachiocephalic and left common carotid arteries share a common origin, a normal anatomic variant. Pulmonary arteries are normal in caliber. No evidence of central pulmonary embolism on this study performed without dedicated technique. Abdominal aorta: No aortic aneurysm or dissection. Mild atherosclerotic calcifications. Celiac axis: Patent. Superior mesenteric artery: Patent. Right renal artery: Patent. Left renal artery: Patent. Inferior mesenteric artery: Patent. Visualized iliac arteries: Patent. NON-ANGIOGRAPHIC FINDINGS: Dual Rate Dealer View Findings, Lines and Tubes: None. Trachea and Airways: Patent without evidence of tracheal or endobronchial lesion. Lungs and Pleura: Clear lungs. No effusion or pneumothorax. Mediastinum and abraham: No mass or hematoma. No mediastinal or hilar lymphadenopathy. No esophageal abnormality. Heart: Heart is normal in size. No pericardial effusion. Punctate calcification in the RCA. Chest Wall Soft Tissues: Normal. Diaphragm: No significant abnormality. Liver: Normal. Gallbladder: No CT evidence of gallbladder pathology. Bile ducts: No biliary ductal dilation. Spleen: Normal. Pancreas: Mild atrophy. No focal abnormality or ductal dilatation. Adrenal glands: Normal. Kidneys and ureters: Partially visualized ptotic right kidney located in the right hemipelvis. No hydronephrosis, stones, or suspicious masses. Stomach, small bowel, and large bowel: Visualized stomach and bowel are normal. Peritoneum and retroperitoneum: No ascites or pneumoperitoneum. No omental or mesenteric lesions. Lymph nodes: No enlarged lymph nodes. Abdominal wall: Unremarkable. Bones: No acute abnormality. IMPRESSION: No aortic aneurysm or dissection. WSN: [id number] Ordering Physician: Jeannie Thomas Dictated By: Veronika Kern MD Dictated Date/Time: 02/01/23 10:29 p Reviewed By: Veronika Kern MD Signed By: Veronika Kern MD Signed Date/Time: 02/01/23 10:29 pm Transcribed By: ARON Transcribed Date/Time: 02/01/23 10:19 pm Vital Signs Most recent to oldest [Reference Range]: 1 2 3 Height 180 cm (02/02/23 8:06 AM) 180 cm (02/02/23 4:54 AM) 180 cm (02/02/23 1:40 AM) Weight 84 kg (02/01/23 6:45 PM) 84 kg (02/01/23 6:30 PM) Oxygen Saturation [94-100 %] 98 % (02/02/23 8:06 AM) 100 % (02/02/23 4:54 AM) 98 % (02/02/23 1:40 AM) Pulse Rate [55-90 bpm] 75 bpm (02/02/23 9:07 AM) 94 bpm *H* (02/02/23 8:06 AM) 62 bpm (02/02/23 4:54 AM) Body Mass Index [18.5-24.99 kg/m2] 25.93 kg/m2 *H* (02/01/23 6:30 PM) Blood Pressure [90-138/55-84 mm Hg] 134/79mm Hg (02/02/23 9:07 AM) 134/79mm Hg (02/02/23 8:06 AM) 133/89mm Hg (02/02/23 4:54 AM) Respiratory Rate [16-30 br/min] 18 br/min (02/02/23 11:25 AM) 18 br/min (02/02/23 9:06 AM) 18 br/min (02/02/23 8:06 AM) Temperature [96.8-100.4 DegF] 98.3 DegF (02/02/23 8:06 AM) 97.4 DegF (02/02/23 4:54 AM) 98.1 DegF (02/02/23 1:40 AM) Mode of Delivery (Oxygen) Room air (02/02/23 8:06 AM) Room air (02/02/23 4:54 AM) Room air (02/02/23 1:40 AM) Blood pressure sites Arm, right (02/02/23 8:06 AM) Arm, right (02/02/23 4:54 AM) Arm, right (02/02/23 1:40 AM) Temperature Route Oral (02/02/23 8:06 AM) Oral (02/02/23 4:54 AM) Oral (02/02/23 1:40 AM) Dry Weight 84 kg (02/01/23 6:45 PM) 84 kg (02/01/23 6:30 PM) Social History Social History Type Response Smoking Status 10 or more cigarette s (1/2 pack or more)/day in last 30 days entered on: 05/07/22 Sex History and physical note * Halle RENEE, Warner: PERFORM, MODIFY, MODIFY Event Display: History and Physical Hospital Authored Date: Patient: ??TASNEEM QUIROGA ? Age:??52 Years?Sex:??Male?:??1970?? Chief Complaint/Reason for Consultation Multiple pain History of Present Illness 52-year-old male with past medical history significant for paroxysmal atrial fibrillation anticoagulated with Xarelto, GERD, pancreatitis, alcohol use disorder in remission, opiate dependence on Suboxone Early November, he was admitted for atypical chest pain, epigastric pain.?? Serial troponins were negative.?? Stress test with nuclear imaging was normal.?? Only a fixed defect involving the apical to mid inferior noel was noted likely an artifact. Since then, he has had 9 evaluations in the emergency room for palpitations, chest pain, headache,??abdominal pain, scrotal pain,??extremity pain.?? He has had multiple EKGs, CT brain, CT chest/abdomen/pelvis, pelvic ultrasound, DVT ultrasound all yielding normal results. Today would be his 10th evaluation for chest pain, headache,??back pain.?? He also notes left arm pain with numbness.?? This all occurred while he was sitting and watching television. ER course: Vital signs: Afebrile, transiently tachycardic, normotensive, nontachypneic, nonhypoxic Exam: Normal Work-up: EKG: Normal sinus rhythm Normal ECG When compared with ECG of 24-JAN-2023 16:12, No significant change was found CBC: Normal Chemistry: Normal High-sensitivity troponin: Negative CT Angio Chest, CT Angio Abdomen No aortic aneurysm or dissection. ?? Interventions performed: LR 1 L bolus Lorazepam 1 mg IV Tylenol 975 mg p.o. x1 Ibuprofen 600 mg p.o. x1 ?? On my evaluation at [facility]: Vital signs: Normal Patient complains of multiple pains: Headache, chest pain, extremity pains.?? There is a palpable component as well as anxiety component to it.?? He does feel slightly better than when he arrived. Review of Systems Constitutional: No weight loss, fever, chills?? HEENT: No visual loss. No hearing loss, congestion, runny nose , sore throat. Skin: No rash ?? Cardiovascular: No?? palpitations. Respiratory: No shortness of breath, cough. Gastrointestinal: No nausea, vomiting or diarrhea. No abdominal pain or blood in stool. Genitourinary: No burning micturition. No urinary frequency or incontinence. Musculoskeletal: Diffuse muscle pain, no?joint pain or stiffness. Endocrine: No reports of sweating. No cold or heat intolerance. No polyuria or polydipsia. Hematologic: No bleeding or bruising. Immunologic/Allergic: No itchy eyes/Itchy nose/Sneezing/Watery eyes Lymphatics: No enlarged lymph nodes. Neurologic: No headache, unilateral weakness, numbness or tingling in the extremities. No change inbowel or bladder control. Psychiatric: No depression. ??Positive anxiety. Objective Measurements?? Height: 180 cm (02/01/23) Weight: 84 kg (02/01/23) Dry Weight: 84 kg (02/01/23) Body Mass Index:??25.93 kg/m2??High (02/01/23) ? Vital Signs?? Temperature: 98.4 DegF (02/01/23 20:20:00) Temperature Route: Oral (02/01/23 20:20:00) Pulse Rate: 75 bpm (02/02/23 00:46:00) Respiratory Rate: 18 br/min (02/02/23 00:46:00) Systolic Blood Pressure: 120 mm Hg (02/02/23 00:46:00) Diastolic Blood Pressure: 78 mm Hg (02/02/23 00:46:00) Blood pressure sites: Arm, left (02/02/23 00:46:00) Mean Arterial Pressure: 102 mm Hg (02/01/23 18:30:00) Pulse Pressure: 42 mm Hg (02/02/23 00:46:00) Oxygen Saturation: 99 % (02/02/23 00:46:00) Mode of Delivery (Oxygen): Room air (02/02/23 00:46:00) Early Warning Score: 1 (02/02/23 00:47:15) ? Intake/Output? No Data Available ? Physical Exam ?? GENERAL: Non acutely? ill-appearing, no acute cardiorespiratory distress HEAD: Normocephalic, atraumatic. EYES: No conjunctival injection. No scleral icterus.?Vandervoort conjunctiva EARS: No tenderness, no discharge. NOSE: No asymmetry. MOUTH AND THROAT: No oral thrush. Dry?? mucous membranes NECK: No JVP elevation, No masses. Range of motion full. HEART: Regular rate ??and ??regular rhythm, no murmurs, no clicks, no rubs , no gallops. CHEST:??Positive palpable chest tenderness, symmetric with respirations. No accessory muscle use, No wheezes, crackles. ABDOMEN: Normoactive bowel sounds. No tenderness without guarding. No increase in liver or spleen size. No masses palpable. GENITOURINARY: No CV angle tenderness. No suprapubic tenderness. No Cid catheter in place.?? Rectal exam is deferred. MUSCULOSKELETAL: Positive diffuse myalgias. ??Range of motion full in all extremities , no obvious deformity , no increased warmth , no effusion?? VASCULAR: All pulses brisk and equal, Capillary refill time < 2sec LYMPHATIC: No cervical, axillary or inguinal adenopathy. Skin: Dry and thin. No evidence of cellulitis, no other major skin lesions?? NEUROLOGIC: No deficit on gross motor and sensory exam Alert and oriented to person, place, time, and situation Psychiatric: No delusions, hallucinations, SI or HI, mild anxiety Assessment/Plan Assessment:??52-year-old male with past medical history significant for paroxysmal atrial fibrillation anticoagulated with Xarelto, GERD, pancreatitis, alcohol use disorder in remission, opiate dependence on Suboxone. Since early November, he has been complaining of atypical chest pain, epigastricpain with stress testing + nuclear imaging being normal. He has a fixed defect involving the apicalto mid inferior noel which was noted to be artifacts. Today, this would be a stat evaluation for multiple pain syndromes: Chest pain, headache, back pain, left arm pain occurring without any activity. ?? Myofascial pain syndrome (M79.18):??Versus Somatoform pain disorder (F45.41):? - will be admitted under observation to Telemetry -To complete the work-up, draw serial troponins -Will also check an alcohol screening cocaine screen -If serial troponins are negative would provide GERD therapy with pantoprazole 20 mg twice daily -There appears to be a significant anxiety component, he may benefit from gabapentin 100 mg 3 timesdaily -Continue to hydrate with LR at 150 MLS per hour - Continue lorazepam 1 mg twice daily -Candidate for early discharge ?? Paroxysmal atrial fibrillation (I48.0):? Continue metoprolol Continue Xarelto ?? GERD (gastroesophageal reflux disease) (K21.9):? PPI as above ?? Opiate dependence (F11.20):? History of alcohol use disorder (Z87.898):? Checking alcohol level, cocaine drug screen Continue Suboxone ?? ISRAEL (generalized anxiety disorder) (F41.1):? Gabapentin started Continue??hydroxyzine +/- lorazepam ?? VTE Prophylaxis:? On Xarelto ?? Code Status:? Full code ?Order Code Status:??Code Status Ordered ?? Ongoing Medical Necessity:? Serial troponins Telemetry monitoring Pain management ?? Discharge Planning:? Anticipate at least 1 night hospital stay The above document was completed by performing history, physical examination, reconciling multiple medications, review of laboratory and imaging All assessment and plan were discussed with the patient and requested feedback with attempts to maximize understanding for the care provided. This required approximately 75 minutes to complete. ? Histories Allergies Allergies ?(Active and Proposed Allergies Only) iohexol? (Severity: Unknown severity, Onset: Unknown) ? Past Medical History/Problem List Active Problems??(5) ISRAEL (generalized anxiety disorder) GERD (gastroesophageal reflux disease) History of alcohol use disorder Opiate dependence Paroxysmal atrial fibrillation ? Past Surgical History No surgery history documented. ? Social History Alcohol Details:??Frequency: Daily. ??Type: Liquor. Details:??Use: Current. ??Frequency: 3-5 times per week. Substance Abuse Details:??Type: Prescription medications. ??Other: currently on suboxone. Tobacco Details:??Use: 10 or more cigarettes (1/2 pack or more)/day in last 30 days. Details:??Use: 10 or more cigarettes (1/2 pack or more)/day in last 30 days. Electronic Cigarette/Vaping Details:??Electronic Cigarette Use: Never. ? Family History No family history??of premature CAD. ? Medications Home Medications Acetaminophen (acetaminophen 325 mg oral tablet)?650?Milligram?By Mouth?Every 4 hours?as needed?Temperature Greater than 100.5?Pain , Mild amiTRIPTYLINE (amitriptyline 10 mg oral tablet)?TAKE 1 TABLET BY MOUTH EVERY DAY Buprenorphine-Naloxone (Suboxone 8 mg-2 mg sublingual film)?1?Film?Sublingual?2 times aday?dissolve under the tongue HydrOXYzine (hydrOXYzine pamoate 50 mg oral capsule)?TAKE 1 CAPSULE BY MOUTH UP TO FOUR TIMES DAILY NEEDED FOR MILD TO MODERATE ANXIETY Lorazepam (LORazepam 1 mg oral tablet)?TAKE 0.5-1 TABLET BY MOUTH TWICE DAILY NEEDED FOR SEVERE ANXIETY Melatonin (Melatonin 10 mg oral tablet, disintegrating)?TAKE 1 TABLET BY MOUTH DAILY DIRECTEDBEFORE SLEEP Metoprolol (Metoprolol Tartrate 25 mg oral tablet)?1?tab(s)?25?Milligram?By Mouth?2 times a day Omeprazole (omeprazole 20 mg oral enteric coated capsule)?1?capsule?20?Milligram?By Mouth?2 times a day rivaroxaban (Xarelto 20 mg oral tablet)?1?tab(s)?20?Milligram?By Mouth?Daily in PM?with evening meal ? Results Recent Labs BLOOD COUNT & DIFF WBC 7.1 k/mm3 ()?? 02/01/2023 19:44 RBC 4.47 m/mm3 (Low)?? 02/01/2023 19:44 Hgb 14.0 Gm/dL ()?? 02/01/2023 19:44 Hct 42.0 % ()?? 02/01/2023 19:44 MCV 94.0 femtoliters ()?? 02/01/2023 19:44 MCH 31.3 pg ()?? 02/01/2023 19:44 MCHC 33.3 g/dL ()?? 02/01/2023 19:44 Platelet Count 347 k/mm3 ()?? 02/01/2023 19:44 RDW-SD 43.1 femtoliters ()?? 02/01/2023 19:44 MPV 9.2 femtoliters (Low)?? 02/01/2023 19:44 Nucleated RBC (Automated) 0.0 #/100 WBC'S ()?? 02/01/2023 19:44 Abs. NRBC 0.0 k/mm3 ()?? 02/01/2023 19:44 Abs. Neut 5.4 k/mm3 ()?? 02/01/2023 19:44 Abs. Lymph 1.1 k/mm3 ()?? 02/01/2023 19:44 Abs. Tompkins 0.5 k/mm3 ()?? 02/01/2023 19:44 Abs. Eo 0.0 k/mm3 ()?? 02/01/2023 19:44 Abs. Baso 0.0 k/mm3 ()?? 02/01/2023 19:44 Neut % 76.4 % (High)?? 02/01/2023 19:44 Lymph % 15.7 % ()?? 02/01/2023 19:44 Tompkins % 7.1 % ()?? 02/01/2023 19:44 Eos % 0.3 % ()?? 02/01/2023 19:44 Baso % 0.4 % ()?? 02/01/2023 19:44 Imm Gran 0.1 % ()?? 02/01/2023 19:44 Abs. Imm Gran 0.0 k/mm3 ()?? 02/01/2023 19:44 ?? CARDIAC High Sensitivity Troponin (HSTnT) <6 ng/L ()?? 02/01/2023 19:44 ?? CHEM GENERAL Sodium 135 mmol/L ()?? 02/01/2023 19:44 Potassium 4.9 mmol/L ()?? 02/01/2023 19:44 Chloride 101 mmol/L ()?? 02/01/2023 19:44 Bicarbonate Level 26 mmol/L ()?? 02/01/2023 19:44 Anion Gap 8 ()?? 02/01/2023 19:44 Glucose Level 102 mg/dL (High)?? 02/01/2023 19:44 BUN 11 mg/dL ()?? 02/01/2023 19:44 Creatinine-Blood 0.9 mg/dL ()?? 02/01/2023 19:44 Estimated GFR Creatinine 103 ML/MIN/1.73 M2 ()?? 02/01/2023 19:44 Calcium 9.3 mg/dL ()?? 02/01/2023 19:44 ?? HEME OTHER Hold Blue Top SPECIMEN DISCARDED AFTER 4 HOURS. ()?? 02/01/2023 19:44 ?? URINE OTHER Est Creatinine Clearance 101.84 mL/min ()?? 02/01/2023 20:29 ? Cardiology * Event Display: Cardiac Rhythm Strips Authored Date: Hospital Progress note * John Joaquin RN: PERFORM, SIGN, VERIFY Event Display: Progress Note Hospital Authored Date: [id number] Patient: TASNEEM QUIROGA Age: 52 years Sex: Male : 1970 Associated Diagnoses: None Author: John Joaquin RN admitted from the ED, pt a/ox4, following commands appropriately, denies dizziness, remains afebrile, VS wnl. Respirations even and unlabored on room air, LS CTA, denies sob. NSB on tele, rates 50s, BP wnl, +cms and pps to all extremities, no edema. ABD soft, nontender +BS to all quads, denies NVD, tolerating po intake without difficulty. Pt is independent with ambulation. Home medications reviewed. Educated patient on plan of care and call disla use, fall risk precautions in place, call disla within reach. See CIS for full assessment and flow sheets. Note * Bhupendra Gonzalez RN: PERFORM Event Display: Discharge/Transfer Note Hospital Authored Date: [id number] Nursing Discharge Note Entered On: 02/02/2023 11:26 EST Performed On: 02/02/2023 11:25 EST by Bhupendra Gonzalez RN Nursing Discharge Note 2 Discharge Time : 02/02/2023 11:10 EST Discharge Level of Care at Discharge : Home/Long-Term/Foster Care Patient Left Unit Via : Ambulatory Patient Accompanied Off Unit with : Responsible adult DC Instructions Provided & Signed by Pt : Yes Patient Understands D/C Instructions : Yes Patient Instructions Discharge Signed : Yes Did Pt have Specialty Bed or Wound Vac : Briseyda Gonzalez RN, Bhupendra - 02/02/2023 11:25 EST * Sigrid RENEE, Savannah Kennedy: PERFORM Event Display: Discharge/Transfer Note Hospital Authored Date: [id number] Patient: ??TASNEEM QUIROGA ? Age:??52 Years?Sex:??Male?:??1970?? Patient Information Discharge Location: [facility] Primary Care Physician: Pepe Dias Admit Date/Time: 02/01/23 18:29 Discharge Disposition Discharge Disposition: ?? Discharge Diagnosis Myofascial pain syndrome (M79.18) Somatoform pain disorder (F45.41) Paroxysmal atrial fibrillation (I48.0) GERD (gastroesophageal reflux disease) (K21.9) Opiate dependence (F11.20) History of alcohol use disorder (Z87.898) ISRAEL (generalized anxiety disorder) (F41.1) History of alcohol use disorder ?? _ Discharge Medications Acetaminophen (acetaminophen 325 mg oral tablet)?650?Milligram?By Mouth?Every 4 hours?as needed?Temperature Greater than 100.5?Pain , Mild amiTRIPTYLINE (amitriptyline 10 mg oral tablet)?10?Milligram?1?tablet?By Mouth?Daily at bedtime?for 30?Days?TAKE 1 TABLET BY MOUTH EVERY DAY Buprenorphine-Naloxone (Suboxone 8 mg-2 mg sublingual film)?1?Film?Sublingual?2 times aday?dissolve under the tongue HydrOXYzine (hydrOXYzine pamoate 50 mg oral capsule)?1?capsule?50?Milligram?By Mouth?4 times a day?TAKE 1 CAPSULE BY MOUTH UP TO FOUR TIMES DAILY NEEDED FOR MILD TO MODERATE ANXIETY Lorazepam (LORazepam 1 mg oral tablet)?TAKE 0.5-1 TABLET BY MOUTH TWICE DAILY NEEDED FOR SEVERE ANXIETY Melatonin (Melatonin 10 mg oral tablet, disintegrating)?TAKE 1 TABLET BY MOUTH DAILY DIRECTEDBEFORE SLEEP Metoprolol (metoprolol 25 mg oral tablet)?25?Milligram?1?tablet?By Mouth?2 times a day?for 30?Days Omeprazole (omeprazole 20 mg oral enteric coated capsule)?1?capsule?20?Milligram?By Mouth?2 times a day rivaroxaban (Xarelto 20 mg oral tablet)?1?tab(s)?20?Milligram?By Mouth?Daily in PM?with evening meal ? Quality Measures Tobacco Use Treatment:? Allergies Allergies ?(Active and Proposed Allergies Only) iohexol? (Severity: Unknown severity, Onset: Unknown) ? Hospital Course Admitted after midnight today anel se [facility] & P Same day discharge Briefly, ?? 52 y/o??male with past medical history significant for paroxysmal atrial fibrillation anticoagulated with Xarelto, GERD, pancreatitis, alcohol use disorder in remission, opiate dependence on Suboxone. Since early November, he has been complaining of atypical chest pain, epigastric pain with stresstesting + nuclear imaging being normal. He has a fixed defect involving the apical to mid inferior noel which was noted to be artifacts. Today, this would be a stat evaluation for multiple pain syndromes: Chest pain, headache, back pain, left arm pain occurring without any activity. ?? Trop negative, not cardiac CT chest and abd negative ?? No further w/up needed he is being discharged home in a stable condition Encouraged him to d/w PCP to manage his anxiety He agreed ? Myofascial pain syndrome (M79.18):??Versus Somatoform pain disorder (F45.41):? Paroxysmal atrial fibrillation (I48.0):? Continue metoprolol Continue Xarelto ?? GERD (gastroesophageal reflux disease) (K21.9):? PPI? Opiate dependence (F11.20):? History of alcohol use disorder (Z87.898):? Checking alcohol level, cocaine drug screen Continue Suboxone ?? ISRAEL (generalized anxiety disorder) (F41.1):? Continue amiTRIPTYLINE Continue??hydroxyzine Will avoid??lorazepam, but defer to PCP ? Code Status:? Full code Objective Assessment and Plan ? Vital Signs?? Temperature: 98.3 DegF (02/02/23 08:06:00) Temperature Route: Oral (02/02/23 08:06:00) Pulse Rate: 75 bpm (02/02/23 09:07:00) Respiratory Rate: 18 br/min (02/02/23 09:06:00) Systolic Blood Pressure: 134 mm Hg (02/02/23 09:07:00) Diastolic Blood Pressure: 79 mm Hg (02/02/23 09:07:00) Blood pressure sites: Arm, right (02/02/23 08:06:00) Mean Arterial Pressure: 97 mm Hg (02/02/23 08:06:00) Pulse Pressure: 55 mm Hg (02/02/23 08:06:00) Oxygen Saturation: 98 % (02/02/23 08:06:00) Mode of Delivery (Oxygen): Room air (02/02/23 08:06:00) Early Warning Score: 1 (02/02/23 09:10:34) Early Warning Score: 1 (02/02/23 09:10:34) ? . Physical Exam Pending Results Cocaine Urine Screen ordered on 02/02/2023 High??Sensitivity??Troponin T ordered on 02/02/2023 Follow-Up Appointments Added Follow Up ?Time Frame ?Comments Yohan MONTGOMERY, Pepe?1 week Post Discharge Care Discharge ?02/02/23 9:13:00 EST Discharge Prescriptions ?ePrescribed, 02/02/23 9:13:00 EST Home Health Face to Face ^HomeHealthFTF Results Discharge Labs BLOOD COUNT & DIFF WBC 7.1 k/mm3 ()?? 02/01/2023 19:44 RBC 4.47 m/mm3 (Low)?? 02/01/2023 19:44 Hgb 14.0 Gm/dL ()?? 02/01/2023 19:44 Hct 42.0 % ()?? 02/01/2023 19:44 MCV 94.0 femtoliters ()?? 02/01/2023 19:44 MCH 31.3 pg ()?? 02/01/2023 19:44 MCHC 33.3 g/dL ()?? 02/01/2023 19:44 Platelet Count 347 k/mm3 ()?? 02/01/2023 19:44 RDW-SD 43.1 femtoliters ()?? 02/01/2023 19:44 MPV 9.2 femtoliters (Low)?? 02/01/2023 19:44 Nucleated RBC (Automated) 0.0 #/100 WBC'S ()?? 02/01/2023 19:44 Abs. NRBC 0.0 k/mm3 ()?? 02/01/2023 19:44 Abs. Neut 5.4 k/mm3 ()?? 02/01/2023 19:44 Abs. Lymph 1.1 k/mm3 ()?? 02/01/2023 19:44 Abs. Tompkins 0.5 k/mm3 ()?? 02/01/2023 19:44 Abs. Eo 0.0 k/mm3 ()?? 02/01/2023 19:44 Abs. Baso 0.0 k/mm3 ()?? 02/01/2023 19:44 Neut % 76.4 % (High)?? 02/01/2023 19:44 Lymph % 15.7 % ()?? 02/01/2023 19:44 Tompkins % 7.1 % ()?? 02/01/2023 19:44 Eos % 0.3 % ()?? 02/01/2023 19:44 Baso % 0.4 % ()?? 02/01/2023 19:44 Imm Gran 0.1 % ()?? 02/01/2023 19:44 Abs. Imm Gran 0.0 k/mm3 ()?? 02/01/2023 19:44 ?? CARDIAC High Sensitivity Troponin (HSTnT) 7 ng/L ()?? 02/02/2023 06:12 ? CHEM GENERAL Sodium 135 mmol/L ()?? 02/01/2023 19:44 Potassium 4.9 mmol/L ()?? 02/01/2023 19:44 Chloride 101 mmol/L ()?? 02/01/2023 19:44 Bicarbonate Level 26 mmol/L ()?? 02/01/2023 19:44 Anion Gap 8 ()?? 02/01/2023 19:44 Glucose Level 102 mg/dL (High)?? 02/01/2023 19:44 BUN 11 mg/dL ()?? 02/01/2023 19:44 Creatinine-Blood 0.9 mg/dL ()?? 02/01/2023 19:44 Estimated GFR Creatinine 103 ML/MIN/1.73 M2 ()?? 02/01/2023 19:44 Calcium 9.3 mg/dL ()?? 02/01/2023 19:44 ?? HEME OTHER Hold Lavender Top SPECIMEN DISCARDED AFTER 24 HOURS. ()?? 02/02/2023 06:09 Hold Blue Top SPECIMEN DISCARDED AFTER 4 HOURS. ()?? 02/01/2023 19:44 ?? MISC. CHEMISTRY Hold Gel Top SPECIMEN DISCARDED AFTER 1 WEEK ()?? 02/02/2023 06:09 ? TOXICOLOGY/TDM Ethanol, Serum or Plasma NONE DETECTED mg/dL ()?? 02/02/2023 02:12 ? URINE OTHER Est Creatinine Clearance 101.84 mL/min ()?? 02/01/2023 20:29 ? _ minutes spent on discharge * Lisa CROWELL, Bhupendra: PERFORM Event Display: Patient Education/Instruction Authored Date: [id number] Inpatient Adult Discharge Instructions [address] [address] Name: TASNEEM QUIROGA : 1970 Visit: 02/01/2023 18:29:00 Current Date: 02/02/2023 10:37 Account: [id number] Inpatient Adult Discharge Instructions We would like to thank you for allowing us to assist you with your healthcare needs. The following includes patient education materials and information regarding your injury/illness. Our entire staffstrives to provide an excellent experience for our patients and their families. PLEASE ENSURE YOU FOLLOW-UP PER THE INSTRUCTIONS BELOW! ?? YOUR OPINION IS IMPORTANT TO US! Please complete the survey you may receive by mail or email. Your feedback will be used to make improvements to the healthcare experiences of our patients and their families. Surveys are administered by [employer] ?? If further treatment with your primary care physician or another doctor is recommended, it is important for you to keep the appointment. Call your primary care physician or return to the Emergency Department immediately if your condition worsens, fails to improve, or new symptoms develop. If you need to find a doctor, you can call [facility] [employer] Link for a referral at [phone] or toll free at [phone]) or log in to [email or web address].. ?? [facility], in keeping with [facility] guidance, no longer requires face masks for staff, patientsor visitors in most situations. Similiar to time spent indoors at other locations, there is the chance that you were exposed to repiratory viruses during your time with us (such as flu or COVID-19). If you develop symptoms concerning for a viral respiratory infection, please seek testing (and treatment if indicated) from your medical provider or home test kit. ?? You can view and manage your care through the patient portal or by using a health care karin of your choosing. [email or web address] is a website that allows you to securely view your medical information including your hospital discharge summary, office visit summaries, medications and follow-up visits. You can also request appointments, renew medications, and request access to your medical information using a health care karin of your choosing, or just ask a question. You can enroll at [email or web address] or register during your next office visit. You have been discharged from [facility], Patient Care Unit: D3B. If you have any questions regarding these instructions after you leave, please call us and we will be happy to assist you. [facility] Your Care Team Attending Physician Savannah Matta MD Discharging Providers Savannah Matta MD Reason for Admission General medical Your Diagnosis Myofascial pain syndrome Somatoform pain disorder Paroxysmal atrial fibrillation GERD (gastroesophageal reflux disease) Opiate dependence History of alcohol use disorder ISRAEL (generalized anxiety disorder) Tests Performed Below is a partial list of the tests performed during your hospitalization. You may have had other tests and procedures not included in this list. Please discuss all test results with your provider. Alcohol Level Basic Metabolic Panel CBC w/ Differential High??Sensitivity??Troponin T Hold Blue Top Tube HOLD GEL TUBE HOLD LAVENDER TUBE Troponin T, High Sensitivity CT Angio Abdomen CT Angio Chest Primary Care Provider Pepe Dias Advance Directive Health Care Proxy on File Yes - Health Care Proxy Discharge Vitals Temperature: 98.3 DegF Height: 180 cm Pulse Rate: 75 bpm Weight: 84 kg Respiratory Rate: 18 br/min Body Mass Index:??25.93 kg/m2??High Systolic Blood Pressure: 134 mm Hg Body surface area: 2.05 Diastolic Blood Pressure: 79 mm Hg ?? Oxygen Saturation: 98 % ?? Studies Pending All tests and labs ordered during this hospital stay have been completed unless listed below. Please discuss all pending results with your provider listed above in these instructions. ?? Cocaine Urine Screen High??Sensitivity??Troponin T (Troponin T, High Sensitivity) What to do next Instructions From Your Doctor Discharge Orders You Need to Schedule the Following Appointments Follow Up with??Pepe Dias When:??Within 1 week Where: [address] [place] [id number]- Discharge Medications QUIROGA, TASNEEM :1970 Visit Date:02/01/2023 Medications: Please continue your medications until treatment is completed or stopped by your provider. Medications not listed below should be discontinued. Discuss any questions related to medications with your provider. What How Much When Instructions Next Dose Changed HydrOXYzine (hydrOXYzine pamoate 50 mg oral capsule) 1 capsule Oral 4 times a day TAKE 1 CAPSULE BY MOUTH UP TO FOUR TIMES DAILY NEEDED FOR MILD TO MODERATE ANXIETY ?? Pickup at [place] [address] 02/02/2023 as needed Changed Metoprolol (metoprolol 25 mg oral tablet) 1 tab(s) Oral Twice a day Duration: 30 Days Pickup at [place] [address] 02/02/2023 Changed amiTRIPTYLINE (amitriptyline 10 mg oral tablet) 1 tab(s) Oral Daily at Bedtime Duration: 30 Days TAKE 1 TABLET BY MOUTH EVERY DAY ?? Pickup at [place] [address] 02/02/2023 at bedtime Unchanged Acetaminophen (acetaminophen 325 mg oral tablet) 650 Milligram Oral Every 4 hours as needed for Pain , Mild Temperature Greater than 100.5 ?? 02/02/2023 Unchanged Buprenorphine-Naloxone (Suboxone 8 mg-2 mg sublingual film) 1 Film Sublingual Twice a day dissolve under the tongue ?? 02/02/2023 evening dose Unchanged Lorazepam (LORazepam 1 mg oral tablet) TAKE 0.5-1 TABLET BY MOUTH TWICE DAILY NEEDED FOR SEVERE ANXIETY ?? 02/02/2023 as needed Unchanged Melatonin (Melatonin 10 mg oral tablet, disintegrating) TAKE 1 TABLET BY MOUTH DAILY DIRECTED BEFORE SLEEP ?? 02/02/2023 Unchanged Omeprazole (omeprazole 20 mg oral enteric coated capsule) 1 capsule Oral Twice a day 02/02/2023 evening Unchanged rivaroxaban (Xarelto 20 mg oral tablet) 1 tab(s) Oral Daily in PM with evening meal ?? 02/02/2023 Pharmacy Information [facility] 3: [address], [place] [id number] [phone] Test Results Below is a partial list of the most recent Laboratory test results done prior to this discharge. You may have had other tests and procedures not included in this list. Please discuss all test resultswith your provider. Est Creatinine Clearance - 101.84 mL/min (02/01/2023) Alcohol Level (02/02/2023) ???Ethanol, Serum or Plasma - NONE DETECTED Basic Metabolic Panel (02/01/2023) ???Sodium - 135 mmol/L???Potassium - 4.9 mmol/L???Chloride - 101 mmol/L???Bicarbonate Level - 26 mmol/L???Anion Gap - 8???Glucose Level - 102 mg/dL???BUN - 11 mg/dL???Creatinine-Blood - 0.9 mg/dL???Estimated GFR Creatinine - 103 ML/MIN/1.73 M2???Calcium - 9.3 mg/dL CBC w/ Differential (02/01/2023) ???WBC - 7.1 k/mm3???RBC - 4.47 m/mm3???Hgb - 14.0 Gm/dL???Hct - 42.0 %???MCV - 94.0 femtoliters???MCH - 31.3 pg???MCHC - 33.3 g/dL???Platelet Count - 347 k/mm3???RDW-SD - 43.1 femtoliters???MPV - 9.2 femtoliters???Nucleated RBC (Automated) - 0.0 #/100 WBC'S???Abs. NRBC - 0.0 k/mm3???Abs. Neut - 5.4 k/mm3???Abs. Lymph - 1.1 k/mm3???Abs. Tompkins - 0.5 k/mm3???Abs. Eo - 0.0 k/mm3???Abs. Baso - 0.0 k/mm3???Neut % - 76.4 %???Lymph % - 15.7 %???Tompkins % - 7.1 %???Eos % - 0.3 %???Baso % - 0.4 %???Imm Gran- 0.1 %???Abs. Imm Gran - 0.0 k/mm3 High??Sensitivity??Troponin T (02/02/2023) ???High Sensitivity Troponin (HSTnT) - 8 ng/L Hold Blue Top Tube (02/01/2023) ???Hold Blue Top - SPECIMEN DISCARDED AFTER 4 HOURS. HOLD GEL TUBE (02/02/2023) ???Hold Gel Top - SPECIMEN DISCARDED AFTER 1 WEEK HOLD LAVENDER TUBE (02/02/2023) ???Hold Lavender Top - SPECIMEN DISCARDED AFTER 24 HOURS. Troponin T, High Sensitivity (02/02/2023) ???High Sensitivity Troponin (HSTnT) - 7 ng/L Allergies (NKA means No Known Allergies) iohexol Problems Active Problems??(5) ISRAEL (generalized anxiety disorder)?? GERD (gastroesophageal reflux disease)?? History of alcohol use disorder?? Opiate dependence?? Paroxysmal atrial fibrillation?? Education Materials Below is the list of Educational Leaflet Providered with your Discharge Instructions. Valuables and Belongings I fully understand and agree that [facility] accepts no responsibility for all my personal property including clothing, toilet articles, radios, jewelry, dentures, hearing aids, rings, money, or any other property that is in my possession or is brought to me after admission. I understand certain valuables may be placed in a hospital safe for a short period of time. I understand that the hospital is not liable for loss or damage due to accident, fire, or other natural occurrence while said property is in the safe. I accept full responsibility for any personal property that I keep with me, and will not hold the hospital responsible in case of loss or disappearance. I acknowledge that i have been encouraged to send valuables and belongings home. ?? No Valuables/Belongings: No valuables/belongings present Date for Pt to Sign Valuables/Belongings: 02/02/23 00:50:00 ?? Other Discharge Information ? Pulmonary Rehab Status?? Pulmonary Rehab Discharge Status?? Respiratory Rate: 18 br/min ? Common Emergency Awareness Tips IS IT A STROKE? Act FAST and Check for these signs: FACE Does the face look uneven? ARM Does one arm drift down? SPEECH Does their speech sound strange? TIME Call at any sign of stroke ?? Heart Attack Signs Chest discomfort: Most heart attacks involve discomfort in the center of the chest and lasts more than a few minutes, or goes away and comes back. It can feel like uncomfortable pressure, squeezing, fullness or pain. Discomfort in upper body: Symptoms can include pain or discomfort in one or both arms, back, neck, jaw or stomach. Shortness of breath: With or without discomfort. Other signs: Breaking out in a cold sweat, nausea, or lightheaded. Remember, MINUTES DO MATTER. If you experience any of these heart attack warning signs, call to get immediate medical attention! ?? Smoking can increase your chances of developing chronic health problems and can cause harmful effects to other family members in your house. If you smoke, you are strongly encouraged to quit. Please call [facility] Link at [phone] or [phone] P[employer] SolutionsJPEWLY ([phone]) or log in to [email or web address] for referrals to smoking cessation programs. ?? 448 Suicide & Crisis Lifeline is available 03/10 if you or someone you know needs to find a reason to keep living. By calling 669 you'll be connected to a skilled, trained counselor at a crisis center in your area. INPATIENT DISCHARGE INSTRUCTIONS SIGNATURE PAGE QUIROGATASNEEM FRANCIS Location:[facility] Registration Date and Time:02/01/2023 18:29 EST Primary Care Physician: Pepe Dias, Attending Physician: Sigrid RENEE, Savannah Kennedy, I TASNEEM QUIROGA, have received the above patient education materials/instructions and have verbalized understanding. If ambulance or transport services are being used I further acknowledge being givena choice of service. ?? If you need to contact me, please call me at this number: . Patient/Maritime Pilot Name: Patient/Maritime Pilot Signature: Relationship to Patient: Witness Name/Signature: Date: * Bhupendra Gonzalez RN: PERFORM Event Display: Patient Education Leaflets Authored Date: [id number] Understanding Premature Ventricular Contractions (PVCs) ?? [address] Understanding Premature Ventricular Contractions (PVCs) Premature ventricular contractions (PVCs) are a type of abnormal heartbeat (arrhythmia). They are commonly found in people of all ages.? How PVCs happen Your heart has 4 chambers: 2 upper atria and 2 lower ventricles. Normally, a special group of pacemaker cells begins the signal to start your heartbeat. These cells are in the sinoatrial (SA) node in the right atrium. The signal quickly travels down your heart???s conducting system. It moves to the left and right ventricle. As it travels, the signal sets off nearby parts of your heart to contract. This allows your heart to squeeze in a coordinated way. During a PVC, the signal to start your heartbeat instead comes from one of the ventricles. This signal is premature, meaning it happens before the SA node has had a chance to fire. The signal spreadsthrough the rest of your heart, causing a heartbeat. If this happens very soon after the previous heartbeat, your heart will push out very little blood. This causes a feeling of a pause between beats. If it happens a little later, your heart pushes out an almost normal amount of blood. This leads to a feeling of an extra heartbeat. So the heart has a ???premature?? heartbeat in between normal heartbeats. ?? What causes PVCs? Most often, PVCs are harmless . But certain things can help set off a premature signal in the ventricles. These include: ??? Advancing age ??? Reduced blood flow to your heart (such as coronary artery disease) ??? Scarring after a heart attack ??? Electrolyte problems, such as low sodium or potassium levels ??? Caffeine ??? Alcohol ??? Nicotine ??? Illegal drugs, such as cocaine and methamphetamine ??? Increased adrenaline, such as with anxiety ??? Certain medicines, such as digoxin ??? Endocrine (hormone) problems, such as hyperthyroid (too much thyroid hormone) Many heart conditions raise the risk for PVCs. These include: ??? High blood pressure ??? Heart attack ??? Coronary heart disease ??? Dilated cardiomyopathy ??? Hypertrophic cardiomyopathy ??? Congenital heart disease ??? Heart failure They often happen in people without any heart disease. But PVCs are somewhat more common in people with some kind of heart disease.? What are the symptoms of PVCs? Most people with occasional PVCs don???t have symptoms. The more PVCs you have, the more likely youare to feel them. When symptoms do happen, they are usually minor. Symptoms may include: ??? An awareness of the heart beating ??? A fluttering or flip-flop feeling in your chest ??? Feeling of a skipped or extra heartbeat ??? Dizziness and near-fainting ??? A pulsing sensation in the neck PVCs may cause more severe symptoms if you have another heart problem, such as heart failure.? How are PVCs diagnosed? Your healthcare provider will ask about your health history and give you a physical exam. An electrocardiogram (ECG) is the main test for diagnosis. This test records the electrical activity of your heart. During an ECG, small pads (electrodes) are placed on your chest, arms, and legs. Wires connect the pads to a machine, which records your heart???s electrical signals. This test allows your provider to look at the signal of your heartbeat for a brief time. Any PVCs that occur during this time will show up on the ECG. In some cases, your healthcare provider might advise at home or portable ECG monitoring over a few days or even weeks. This can help to diagnose PVCs that don???t happen often. There are several types of heart monitors: ??? Holter monitor.??This monitor is a small box with wires connected to pads on your chest. You wear it for 1 to 2 days. It provides a constant recording of heart activity. After the test is done, your healthcare provider analyzes the recording. ??? Event monitors.??These monitors are also small boxes with wires connected to pads on your chest. They are generally worn for 3 to 4 weeks. But they can be used for several months. One kind is a memory loop recorder. This monitor records constantly.But it stores the recording only when you press a button. The other kind is a credit card-sized recorder. This monitor is turned on only during an episode. With both types, you send the recordings ofsymptoms to your healthcare provider over the phone. ??? Mobile cardiac outpatient telemetry. This type of event monitor is usually used for up to 30 days. It uses cell phone technology to send data in real time to a monitoring center where trained technicians can review it. Or it can contact a healthcare provider for a life-threatening problem. ??? Patch monitor. This is a small self-contained ad hesive patch that can record your heart rhythm for up to 2 weeks. ??? Insertable (or implantable) registered nurse cardiac. This small device is implanted under the skin. It can be used to keep track of the heart rhythm for several years. ??? Commercially available wearable heart rhythm monitors . These include smartwatches or wristbands. They may be useful for finding abnormal heart rhythms. These may be the only tests your healthcare provider will need. You may need more testing if you have PVCs often, or many in a row. Your provider may look at other causes, including possible heart problems. These tests might include: ??? Echocardiography. This test uses ultrasound to evaluate your heart???s structure and function. ??? Cardiac stress testing. This test checks how your heart responds to exercise and to evaluate heart artery blood flow. ??? Cardiac CT or MRI. These imaging tests make detailed pictures of the heart. ??? Blood tests.??This is done to check electrolyte and thyroid levels. ?? Last Reviewed Date: 2022 ?? 4212-0576 [employer]. All rights reserved. This information is not intended as a substitute for professional medical care. Always follow your healthcare professional's instructions. ?? Patient Care team information Care Team Personnel Name: Ana CROWELL, Nuvia Chavira Position: [facility] RN Member Role: Primary Care Nurse Name: John Joaquin RN Position: [facility] RN Member Role: Primary Care Nurse Name: Dilcia Hartmann Position: [facility] RN Member Role: Primary Care Nurse Name: Kavita Laguna RN Position: [facility] RN Member Role: Primary Care Nurse Name: Lainey Zepeda DO Position: [facility] Physician Hospital Medicine Member Role: PCP Address: Address: [address] [place] [address]- [place] Name: Bhupendra Gonzalez RN Position: [facility] RN Member Role: Primary Care Nurse Name: Yenny Vergara Position: [facility] RN Member Role: Primary Care Nurse Name: Mindi PAYTON Attending Position: [facility] ED Medicine MD Name: Estephanie Royal NP Position: [facility] Associate Professional Member Role: Nurse Practitioner Address: Address: [address] [place] [address] [place] [address]- Name: Mandy Liu RN Position: [facility] ED RN W/OE and Tasks Member Role: Patient Care Provider Care Team Related Persons Name: SOLANGEREMIABRAHAM Address: home [address] [place] [address]
--- OUTSIDE RECORDS SUMMARY | 2023-06-10 18:25 | XMS_ITS | Continuity of Care Document ---
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 Start Date: 04/02/22 Stop Date: 06/01/22 Status: Ordered Cardizem CD 120 mg/24 hours oral capsule, extended release 120 mg, 1, capsule, By Mouth, Daily, # 30 capsule, Refills 1, Tot. Refills 1, Maintenance, 239:51:00 EST, Route to Pharmacy Electronically, [facility], Partial fill upon patient request if the prescription is for a schedule II opi... Start Date: 04/02/22 Stop Date: 06/01/22 Status: Ordered famotidine 20 mg oral tablet 20 mg, 1, tablet, By Mouth, 2 times a day, # 180 tablet, Refills 0, Tot. Refills 0, Maintenance, 06/23/22 11:07:00 EDT, Route to Pharmacy Electronically, [id number], Partial fill upon patient request if the prescription is for a sched... Start Date: 06/23/22 Status: Ordered ondansetron 4 mg oral tablet, disintegrating 1 tablet = 4 mg, By Mouth, Every 6 hours, PRN as needed for nausea/vomiting, # 12 tablet, 0 Refills, Maintenance, 06/15/22 11:59:00 EDT, DIS Tablet, [facility] #[id number], Partial fill upon patient request if the [...] Range]: 1 2 3 Height 180 cm (07/01/22 2:15 AM) 180 cm (06/30/22 11:17 PM) Weight 93 kg (07/01/22 2:15 AM) 93 kg (06/30/22 11:17 PM) Oxygen Saturation [94-100 %] 97 % (07/01/22 5:19 AM) 95 % (07/01/22 2:15 AM) 98 % (06/30/22 11:17 PM) Pulse Rate [55-90 bpm] 67 bpm (07/01/22 5:19 AM) 67 bpm (07/01/22 2:15 AM) 90 bpm (06/30/22 11:17 PM) Body Mass Index [18.5-24.99 kg/m2] 28.7 kg/m2 *H* (07/01/22 2:15 AM) 28.7 kg/m2 *H* (06/30/22 11:17 PM) Blood Pressure [90-138/55-84 mm Hg] 117/81mm Hg (07/01/22 5:19 AM) 116/66mm Hg (07/01/22 2:15 AM) 133/96mm Hg (06/30/22 11:17 PM) Respiratory Rate [16-30 br/min] 20 br/min (07/01/22 2:15 AM) 16 br/min (06/30/22 11:17 PM) 16 br/min (06/30/22 10:51 PM) Temperature [96.8-100.4 DegF] 98.6 DegF (07/01/22 5:19 AM) 98.4 DegF (07/01/22 2:15 AM) 98.2 DegF (06/30/22 11:17 PM) Mode of Delivery (Oxygen) Room air (07/01/22 5:19 AM) Room air (07/01/22 2:15 AM) Room air (06/30/22 11:17 PM) Blood pressure sites Arm, right (07/01/22 5:19 AM) Arm, right (06/30/22 11:17 PM) Temperature Route Oral (07/01/22 5:19 AM) Oral (07/01/22 2:15 AM) Oral (06/30/22 11:17 PM) Dry Weight 93 kg (07/01/22 2:15 AM) 93 kg (06/30/22 11:17 PM) Weight Obtained Via Standing scale (06/30/22 11:17 PM) Dry Weight Obtained Via Standing scale (06/30/22 11:17 PM) Social History Social History Type Response Smoking Status 10 or more cigarette s (1/2 pack or more)/day in last 30 days entered on: 05/07/22 Sex Patient Care team information Care Team Personnel Name: Ana CROWELL, Nuvia Chavira Position: [facility] RN Member Role: Primary Care Nurse Name: Pepe Dias Position: [facility] Outreach Member Role: PCP Address: Address: [address] [place] [address] Name: Jo Pires Position: [facility] Member Role: Patient Care Provider Care Team Related Persons Name: ABRAHAM NARVAEZ Address: home [address] [place] [address]
--- OUTSIDE RECORDS SUMMARY | 2023-06-10 18:25 | XMS_ITS | Continuity of Care Document ---
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 Start Date: 04/02/22 Stop Date: 06/01/22 Status: Ordered Cardizem CD 120 mg/24 hours oral capsule, extended release 120 mg, 1, capsule, By Mouth, Daily, # 30 capsule, Refills 1, Tot. Refills 1, Maintenance, 239:51:00 EST, Route to Pharmacy Electronically, [facility], Partial fill upon patient request if the prescription is for a schedule II opi... Start Date: 04/02/22 Stop Date: 06/01/22 Status: Ordered famotidine 20 mg oral tablet 20 mg, 1, tablet, By Mouth, 2 times a day, # 180 tablet, Refills 0, Tot. Refills 0, Maintenance, 06/23/22 11:07:00 EDT, Route to Pharmacy Electronically, [id number], Partial fill upon patient request if the prescription is for a sched... Start Date: 06/23/22 Status: Ordered ondansetron 4 mg oral tablet, disintegrating 1 tablet = 4 mg, By Mouth, Every 6 hours, PRN as needed for nausea/vomiting, # 12 tablet, 0 Refills, Maintenance, 06/15/22 11:59:00 EDT, DIS Tablet, [facility] #[id number], Partial fill upon patient request if the [...] Outreach Member Role: PCP Address: Address: [address] [place] [address] Care Team Related Persons Name: ABRAHAM NARVAEZ Address: home [address] [place] [address]
--- OUTSIDE RECORDS SUMMARY | 2023-06-10 18:25 | XMS_ITS | Continuity of Care Document ---
Author Name Unknown Organization [facility] ter Address [address] [place] [id number] [place] [facility] [place] [id number] Date(s): 11/19/22 - 11/20/[address] [address] Discharge Disposition: A-D/C Home Attending Physician: Alhaji RENEE, Yoshi Admitting Physician: Shawn RENEE, Raghu Cates Referring Physician: Not on Staff, Referring MD Allergies, Adverse Reactions, Alerts No Known Allergies Medications acetaminophen 325 mg oral tablet 650 mg, By Mouth, Every 4 hours, PRN, Temperature Greater than 100.5, Refills 0, Maintenance, Pain , Mild, 11/20/22 15:10:00 EDT, Partial fill upon patient request if the prescription is for a schedule II opioid drug. Start Date: 11/20/22 Status: Ordered Ativan 1 mg oral tablet 1 tablet = 1 mg, By Mouth, 2 times a day, PRN as needed for anxiety, for 5 days, # 12 tablet, 0 Refills, Acute 11/25/22 16:31:00 EDT, 11/20/22 16:31:00 EDT, Tablet, [facility], Partial fill upon patient request if the prescription is for... Start Date: 11/20/22 Stop Date: 11/25/22 Status: Ordered Metoprolol Tartrate 25 mg oral [...] opioid drug. Start Date: 11/19/22 Status: Ordered oxyCODONE 5 mg oral tablet 5 mg, 1, tablet, By Mouth, Every 6 hours, PRN, for 5 days, # 18 tablet, Refills 0, Tot. Refills 0, Acute 11/25/22 16:32:00 EDT, for pain, 11/20/22 16:32:00 EDT, Route to Pharmacy Electronically, [facility], Partial fill upon patient requ... Start Date: 11/20/22 Stop Date: 11/25/22 Status: Ordered Suboxone 8 mg-2 mg sublingual [...] Exam Date Time Procedure Performing Provider Status 11/19/22 3:06 PM US Doppler Ext Lower Venous Left Adelso Caldwell; Auth (Verified) Notes: (US Doppler Ext Lower Venous Left) Reason For Exam: Pain in limb;Other: RESULT: US Doppler Ext Lower Venous Left US Doppler Ext Lower Venous Left Hx of Present Illness: chest pain for 5 days, sts he has a team that sees him. sts pain was stabbing in left chest, left arm with some numbness, also has pain from groin to calf. has some increasednausea, has some sob and chest tightness; Reason: Other:; Pain in limb; Clinical Question(s): [...] No evidence of deep venous thrombosis. WSN: [id number] Ordering Physician: Shantanu Marie Dictated By: Dexter Prescott MD Dictated Date/Time: 11/19/22 4:12 pm Reviewed By: Dexter Prescott MD Signed By: Dexter Prescott MD Signed Date/Time: 11/19/22 4:12 pm Transcribed By: ARON Transcribed Date/Time: 11/19/22 4:12 pm * Exam Date Time Procedure Performing Provider Status 11/19/22 12:17 PM Chest 2 Views Frontal and Lat Mera Bradley (Verified) Notes: (Chest 2 Views Frontal and Lat) Reason For Exam: Chest Pain;Other: RESULT: Chest 2 Views Frontal and Lat Chest 2 Views Frontal and Lat Hx of Present Illness: chest pain for 5 days, sts he has a team that sees him. sts pain was stabbing in left chest, left arm with some numbness, also has pain from groin to calf. has some increasednausea, has some sob and chest tightness; Reason: Other:; Chest Pain; Clinical Question(s): Other: COMPARISON: 06/30/2022 FINDINGS: LINES AND TUBES: None. LUNGS AND PLEURA: Clear lungs. Normal pulmonary vascularity. No pleural effusion. No pneumothorax. HEART, MEDIASTINUM AND CATE: Heart is normal in size. Normal mediastinal and hilar contour. BONES AND SOFT TISSUES: No acute abnormality. IMPRESSION: No acute abnormality. WSN: [id number] Ordering Physician: Ibrahima Child Dictated By: Aliyah Edwards MD Dictated Date/Time: 11/19/22 12:19 p Reviewed By: Aliyah Edwards MD Signed By: Aliyah Edwards MD Signed Date/Time: 11/19/22 12:19 pm Transcribed By: ARON Transcribed Date/Time: 11/19/22 12:18 pm Vital Signs Most recent to oldest [Reference Range]: 1 2 3 Height 180 cm (11/20/22 3:20 PM) 180 cm (11/20/22 11:12 AM) 180 cm (11/20/22 10:31 AM) Weight 82 kg (11/20/22 10:31 AM) 82 kg (11/19/22 6:48 PM) Oxygen Saturation [94-100 %] 98 % (11/20/22 3:20 PM) 97 % (11/20/22 11:12 AM) 97 % (11/20/22 7:06 AM) Pulse Rate [55-90 bpm] 72 bpm (11/20/22 3:20 PM) 78 bpm (11/20/22 11:12 AM) 63 bpm (11/20/22 7:06 AM) Body Mass Index [18.5-24.99 kg/m2] 25.31 kg/m2 *H* (11/19/22 6:48 PM) Blood Pressure [90-138/55-84 mm Hg] 109/81mm Hg (11/20/22 3:20 PM) 123/86mm Hg (11/20/22 11:12 AM) 119/87mm Hg (11/20/22 7:06 AM) Respiratory Rate [16-30 br/min] 20 br/min (11/20/22 3:20 PM) 19 br/min (11/20/22 11:12 AM) 18 br/min (11/20/22 9:00 AM) Temperature [96.8-100.4 DegF] 97.7 DegF (11/20/22 3:20 PM) 97.8 DegF (11/20/22 11:12 AM) 97.5 DegF (11/20/22 7:06 AM) Mode of Delivery (Oxygen) Room air (11/20/22 3:20 PM) Room air (11/20/22 11:12 AM) Room air (11/20/22 7:06 AM) Blood pressure sites Arm, right (11/20/22 3:20 PM) Arm, right (11/20/22 11:12 AM) Arm, right (11/20/22 7:06 AM) Temperature Route Oral (11/20/22 3:20 PM) Oral (11/20/22 11:12 AM) Oral (11/20/22 7:06 AM) Dry Weight 82 kg (11/19/22 6:48 PM) 82 kg (11/19/22 5:22 PM) 82 kg (11/19/22 1:44 PM) Dry Weight Obtained Via Patient/family s tated (11/19/22 11:35 AM) Social History Social History Type Response Smoking Status 10 or more cigarette s (1/2 pack or more)/day in last 30 days entered on: 05/07/22 Sex History and physical note * Allison RENEE, Christo Monique: PERFORM Event Display: History and Physical Hospital Authored Date: [id number] Patient: ??TASNEEM QUIROGA ? Age:??52 Years?Sex:??Male?:??1970?? Chief Complaint/Reason for Consultation Chest pain, epigastric pain History of Present Illness 52-year-old male??with history of??opiate dependence on Suboxone,??alcohol use disorder in remission, GERD,??previous pancreatitis,??and paroxysmal??atrial fibrillation??on Xarelto??who presented to the emergency department today complaining of??ongoing??lower chest and epigastric tightness??worse??over the past 5 days,??but present for over a few weeks.?? His description of the??symptoms is not consistent,??at times??describing it as pain and tightness, and other times describing it as hesitancy and palpitations. ??The patient states his symptoms started in his left leg,??with a knot behind his left knee that moved up into his groin region,??and has persisted in his epigastric and chest region.?? He also reports radiation into the left arm. ??He feels that??he has a blood clot that hasnot been detected on??multiple??studies at [facility].?? 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 ??The report is not yet available.?? He states he has been in the[facility] emergency department 6 or 7 times in the last month,??with negative work-ups for ACS, but never admitted to the hospital.?? He came here to [facility] today because it is a better hospital. ?? When I first interviewed him, he statedthat his??left??leg pain had resolved,??but then during the interview??states that??he is feeling the same symptoms in the leg??again,??and that he has also noticed color changes??of both of his lower extremities.?? He does endorse that he has not been compliant with his Xarelto, and only started taking it consistently about 5 days ago.?? He denies shortness of breath. ??No vomiting.?? No changesin bowel movements or urinary symptoms.?? His appetite has been poor,??and he is afraid to eat because it will exacerbate??the pain. ?? He reports over 20 pound weight loss in the past couple months. ?? In the emergency department, the patient has been afebrile and hemodynamically stable. ??No respiratory distress or hypoxia.?? At the time of my evaluation,??his symptoms persist but he does not appear in distress.?? Initial EKG did show??new T wave inversions in the inferior leads when compared to June 2022, which were not persistent in repeat EKGs later today (despite persistence of symptoms).?? Laboratory work-up is unremarkable with high- sensitivity troponin values of 9 and 6, respectively. Review of Systems Other than those positives as noted in the HPI above, the remaining comprehensive 14-point review of systems is negative. Objective Measurements?? Height: 180 cm (11/19/22) Weight: 82 kg (11/19/22) Dry Weight: 82 kg (11/19/22) Body Mass Index:??25.31 kg/m2??High (11/19/22) ? Vital Signs?? Temperature: 98.1 DegF (11/19/22 18:48:00) Temperature Route: Oral (11/19/22 18:48:00) Pulse Rate: 60 bpm (11/19/22 18:48:00) Respiratory Rate: 19 br/min (11/19/22 19:42:00) Systolic Blood Pressure: 125 mm Hg (11/19/22 18:48:00) Diastolic Blood Pressure:??88 mm Hg??High (11/19/22 18:48:00) Blood pressure sites: Arm, right (11/19/22 18:48:00) Mean Arterial Pressure: 100 mm Hg (11/19/22 18:48:00) Pulse Pressure: 37 mm Hg (11/19/22 18:48:00) Oxygen Saturation: 98 % (11/19/22 18:00:00) Mode of Delivery (Oxygen): Room air (11/19/22 18:00:00) Early Warning Score: 1 (11/19/22 21:26:39) ? Pain Scores 1 - 10 Pain Scale Score: 10 (19:09) ? Physical Exam General Appearance: Alert, appears stated age, anxious, answers questions appropriately HEENT: Normocephalic, atraumatic, PERRL, EOMI, no scleral icterus, no facial droop, moist mucous membranes, no oropharynx lesions?? Neck: Supple, no JVD, no C-Spine tenderness, no LAD Cardiac: RRR, S1 & S2 present, no m / r / g appreciated Chest: Clear to auscultation bilaterally, no wheezing / ronchi / rales, no tenderness to percussion Abdomen: Soft, nontender, no distention, no rebound or guarding, no masses, no organomegaly, normalbowel sounds in all quadrants Extremities: No clubbing, cyanosis, or edema. ??2+ distal pulses. ??Capillary refill < 3 seconds. ??No calf tenderness or cords Skin: Warm, no rash or open wounds Neuro: ??A & O x 3, CN III-XII intact, strength 5/5 of upper / lower extremities bilaterally, gross sensation intact Psych:?Anxious mood Assessment/Plan Assessment:??52-year-old male with history of opiate dependence on Suboxone, alcohol use disorder in remission, GERD, previous pancreatitis, and paroxysmal atrial fibrillation on Xarelto who presented to the emergency department today complaining of ongoing lower chest and epigastric tightness worse over the past 5 days, but present for over a few weeks.??Initial EKG did show new T wave inversions in the inferior leads when compared to June 2022, which were not persistent in repeat EKGs later today (despite persistence of symptoms).??Admission was requested for??ongoing??lower chest discomfort with EKG changes. ?? Chest pain (R07.9) Epigastric pain (R10.13) Abnormal EKG (R94.31):??Differential diagnosis is broad,??including??anginal chest pain,??symptomatic paroxysmal atrial fibrillation,??pancreatitis, gastritis,??or other intra-abdominal pathology.??He did recently have outpatient??EGD and colonoscopy without significant findings.??Currently no evidence for ACS.??VTE would be less likely??with??negative??Doppler ultrasound of the left lower extremity,??no hypoxia, no tachycardia, and on??Xarelto.??He has remained in a normal sinus rhythm on monitoring.??Non-organic causes could also be contributing. -Observation on the medical floor, continuous EKG monitoring??with consideration for Holter monitoring??after discharge -Check D-dimer??and consider CT angio??of the chest??if positive -Check LFTs and lipase level -Obtain results from MRI of the abdomen??at [facility] this morning -We will obtain??exercise nuclear ETT??tomorrow??to rule out??ischemic heart disease;??patient willbe kept n.p.o. after midnight -Continue PPI as prescribed ?? Paroxysmal atrial fibrillation (I48.0):??Currently the patient is in a normal sinus rhythm. Continue metoprolol as prescribed. Continue Xarelto as prescribed. ?? GERD (gastroesophageal reflux disease) (K21.9):??Continue PPI as prescribed. ?? Opiate dependence (F11.20):??Continue Suboxone as prescribed. ?? VTE Prophylaxis:??On Xarelto. ?VTE Prophylaxis Assessment:??VTE Prophylaxis Ordered ?? Code Status:??FULL. ?Order Code Status:??Code Status Ordered ?? Discharge Planning:??Anticipate discharge home; 1 to 2 days hospitalization. ?? I spent a total of??62 minutes today reviewing the chart / medical records, evaluating the patient,evaluating and interpreting laboratory and imaging data, formulating and discussing the treatment plan, and documenting the encounter. ? Histories Allergies Allergies ?(Active and Proposed Allergies Only) NKA? (Severity: Unknown severity, Onset: Unknown) ? Past Medical History/Problem List Active Problems??(4) GERD (gastroesophageal reflux disease) History of alcohol use disorder Opiate dependence Paroxysmal atrial fibrillation ? Past Surgical History No surgery history documented. ? Social History Alcohol Details:??Frequency: Daily. ??Type: Liquor. Details:??Use:??Past.?Frequency: 3-5 times per week previously, denies any in a few months. Substance Abuse Details:??Type: Prescription medications. ??Other: currently on suboxone. Tobacco Details:??Use: 10 or more cigarettes (1/2 pack or more)/day previously, denies any in past couple weeks. Electronic Cigarette/Vaping Details:??Electronic Cigarette Use: Never. ? Family History No family history??of premature CAD. ? Medications Home Medications Buprenorphine-Naloxone (Suboxone 8 mg-2 mg sublingual film)?1?Film?Sublingual?2 times aday?dissolve under the tongue Metoprolol (Metoprolol Tartrate 25 mg oral tablet)?1?tab(s)?25?Milligram?By Mouth?2 times a day Omeprazole (omeprazole 20 mg oral enteric coated capsule)?1?capsule?20?Milligram?By Mouth?2 times a day rivaroxaban (Xarelto 20 mg oral tablet)?1?tab(s)?20?Milligram?By Mouth?Daily in PM?with evening meal ? Results Recent Labs BLOOD COUNT & DIFF WBC 7.5 k/mm3 ()?? 11/19/2022 11:48 RBC 4.88 m/mm3 ()?? 11/19/2022 11:48 Hgb 15.4 Gm/dL ()?? 11/19/2022 11:48 Hct 45.3 % ()?? 11/19/2022 11:48 MCV 92.8 femtoliters ()?? 11/19/2022 11:48 MCH 31.6 pg ()?? 11/19/2022 11:48 MCHC 34.0 g/dL ()?? 11/19/2022 11:48 Platelet Count 376 k/mm3 ()?? 11/19/2022 11:48 RDW-SD 40.0 femtoliters ()?? 11/19/2022 11:48 MPV 9.4 femtoliters ()?? 11/19/2022 11:48 Nucleated RBC (Automated) 0.0 #/100 WBC'S ()?? 11/19/2022 11:48 Abs. NRBC 0.0 k/mm3 ()?? 11/19/2022 11:48 Abs. Neut 5.9 k/mm3 ()?? 11/19/2022 11:48 Abs. Lymph 1.0 k/mm3 ()?? 11/19/2022 11:48 Abs. [place]bot 0.5 k/mm3 ()?? 11/19/2022 11:48 Abs. Eo 0.0 k/mm3 ()?? 11/19/2022 11:48 Abs. Baso 0.0 k/mm3 ()?? 11/19/2022 11:48 Neut % 79.4 % (High)?? 11/19/2022 11:48 Lymph % 12.9 % (Low)?? 11/19/2022 11:48 Talbot % 6.8 % ()?? 11/19/2022 11:48 Eos % 0.3 % ()?? 11/19/2022 11:48 Baso % 0.3 % ()?? 11/19/2022 11:48 Imm Gran 0.3 % ()?? 11/19/2022 11:48 Abs. Imm Gran 0.0 k/mm3 ()?? 11/19/2022 11:48 ?? CARDIAC High Sensitivity Troponin (HSTnT) 6 ng/L ()?? 11/19/2022 13:50 ?? CHEM GENERAL Sodium 134 mmol/L ()?? 11/19/2022 11:49 Potassium 4.8 mmol/L ()?? 11/19/2022 11:49 Chloride 100 mmol/L ()?? 11/19/2022 11:49 Bicarbonate Level 23 mmol/L ()?? 11/19/2022 11:49 Anion Gap 11 ()?? 11/19/2022 11:49 Glucose Level 116 mg/dL (High)?? 11/19/2022 11:49 BUN 5 mg/dL (Low)?? 11/19/2022 11:49 Creatinine-Blood 0.9 mg/dL ()?? 11/19/2022 11:49 Estimated GFR Creatinine 101 ML/MIN/1.73 M2 ()?? 11/19/2022 11:49 Calcium 10.1 mg/dL ()?? 11/19/2022 11:49 ?? HEME OTHER Hold Blue Top SPECIMEN DISCARDED AFTER 4 HOURS. ()?? 11/19/2022 11:48 ?? URINE OTHER Est Creatinine Clearance 101.84 mL/min ()?? 11/19/2022 12:26 ?? VIROLOGY COVID-19 PCR Specimen Source NASAL ()?? 11/19/2022 17:23 COVID-19 PCR Result NEGATIVE ()?? 11/19/2022 17:23 ? Imaging(s) ?Chest 2 Views Frontal and Lat ?? 11/19/2022 12:17??by Aliyah Edwards MD ?IMPRESSION: No acute abnormality. ?ECG 12-Lead ?? 11/19/2022 11:46??by Christo Prasad DO ?Ventricular Rate: 74 BPM Atrial Rate: 74 BPM P-R Interval: 140 ms QRS Duration: 92 ms Q-T Interval: 370 ms QTC Calculation(Bazett): 410 ms R [place]: 29 degrees T [place]: -44 degrees Normal sinus rhythm T wave abnormality, consider inferior ischemia Abnormal ECG When compared with ECG of 03-JUL-2022 13:09, Non-specific change in ST segment in Inferior leads T wave inversion now evident in Inferior leads Confirmed by CHRISTO PRASAD MD () on 11/19/2022 7:59:07 PM ?US Doppler Ext Lower Venous Left ?? 11/19/2022 15:06??by Dexter Prescott MD ?IMPRESSION: No evidence of deep venous thrombosis. ? EKG study * Event Display: ECG 12-Lead Authored Date: Please click on pdf link to open report * Event Display: ECG 12-Lead Authored Date: Ventricular Rate: 63 BPM Atrial Rate: 63 BPM P-R Interval: 160 ms QRS Duration: 98 ms Q-T Interval: 416 ms QTC Calculation(Bazett): 425 ms P [place]: 62 degrees R [place]: 18 degrees T [place]: 53 degrees Normal sinus rhythm Normal ECG When compared with ECG of 19-NOV-2022 16:20, MANUAL COMPARISON REQUIRED, DATA IS UNCONFIRMED Confirmed by CHRISTO PRASAD MD () on 11/20/2022 8:01:38 AM [place]: CHRISTO PRASAD MD * Event Display: ECG 12-Lead Authored Date: Please click on pdf link to open report * Event Display: ECG 12-Lead Authored Date: Ventricular Rate: 59 BPM Atrial Rate: 59 BPM P-R Interval: 166 ms QRS Duration: 98 ms Q-T Interval: 422 ms QTC Calculation(Bazett): 417 ms P [place]: 70 degrees R [place]: 44 degrees T [place]: 62 degrees Sinus bradycardia Otherwise normal ECG When compared with ECG of 19-NOV-2022 11:46, ST elevation now present in Inferior leads T wave inversion no longer evident in Inferior leads Confirmed by CHRISTO PRASAD MD () on 11/20/2022 8:01:36 AM [place]: CHRISTO PRASAD MD * Event Display: ECG 12-Lead Authored Date: Please click on pdf link to open report * Event Display: ECG 12-Lead Authored Date: [id number] Ventricular Rate: 74 BPM Atrial Rate: 74 BPM P-R Interval: 140 ms QRS Duration: 92 ms Q-T Interval: 370 ms QTC Calculation(Bazett): 410 ms R [place]: 29 degrees T [place]: -44 degrees Normal sinus rhythm T wave abnormality, consider inferior ischemia Abnormal ECG When compared with ECG of 03-JUL-2022 13:09, Non-specific change in ST segment in Inferior leads T wave inversion now evident in Inferior leads Confirmed by CHRISTO PRASAD MD ([id number]) on 11/19/2022 7:59:07 PM [place]: CHRISTO PRASAD MD Cardiology * Event Display: Treadmill Standard W/ Nuc Imaging Test Authored Date: Please click on pdf link to open report Hospital Progress note * Kavita Laguna RN: VERIFY, PERFORM, SIGN Event Display: Progress Note Hospital Authored Date: Patient: TASNEEM QUIROGA Age: 52 years Sex: Male : 1970 Associated Diagnoses: None Author: Kavita Laguna RN Findings Nursing Data Vital Signs : VITAL SIGNS SECTION 11/20/2022 11:12 EDT Early Warning Score 3.00 11/20/2022 11:12 EDT Temperature 97.8 DegF Temperature Route Oral Pulse Rate 78 bpm Respiratory Rate 19 br/min Systolic Blood Pressure 123 mm Hg Diastolic Blood Pressure 86 mm Hg H Blood pressure sites Arm, right Mean Arterial Pressure 98 mm Hg Pulse Pressure 37 mm Hg Oxygen Saturation 97 % Mode of Delivery (Oxygen) Room air 11/20/2022 7:06 EDT Temperature 97.5 DegF Temperature Route Oral Pulse Rate 63 bpm Respiratory Rate 20 br/min Systolic Blood Pressure 119 mm Hg Diastolic Blood Pressure 87 mm Hg H Blood pressure sites Arm, right Mean Arterial Pressure 98 mm Hg Pulse Pressure 32 mm Hg Oxygen Saturation 97 % Mode of Delivery (Oxygen) Room air . Evaluation pt a&o x3. vss, sb-sr on tele. denies complaints of cp/ sob. stress test complete this am-- seecis for results. on arrival back to unit pt visibly anxious/ tearful. endorsing multiple palpitations during procedure, md ruby notified. po ativan given with good relief. pt ambulatory wit hout assistive device. pending stress test results, plan for potential discharge. will cont to monitor tele, labs, vs.. . * Dilcia Hartmann: PERFORM, SIGN, VERIFY Event Display: Progress Note Hospital Authored Date: Patient: TASNEEM QUIROGA Age: 52 years Sex: Male : 1970 Associated Diagnoses: None Author: Dilcia Hartmann Findings Narrative/Incidental Pt is admitted from ED. Alert and orientated. Denies CP/SOB. C/o pain below his sternum extending to his left ribs, just below his breast, 12/20. Sinus rhythm on telemetry. Pt is ambulating independently. Notified covering , ordered EKG once, done. Lidocaine patch applied. Kept NPO after 12 midnight for stress test tomorrow, Pt noted. Safety measures advised. Call disla placed within reach. . Radiology * Event Display: NM Myocard Perf SPECT Multi Authored Date: Myocardial Perfusion Imaging Demographics Patient Name JUNAID BOATENG Gender Male [employer] Room Number D321 Height 70.9 inches Date of 1970 Weight 180.8 pounds Age 52 year(s) BSA 2.02 m2 Accession Number [id number] BMI 25.31 kg/m2 Date of study 11/20/2022 Resident Referring Physician Allison Monique MD Interpreting Mirna Glover MD NM Technologist Chelsea Vazquez Physician Procedure Procedure Type: Myocardial Perfusion Imaging:NM Myocardial Perfusion Spect Multi Indications: Chest pain. Stress Protocols Resting ECG Sinus rhythm. Resting HR:83 bpm Resting BP:136/88 mmHg Pre-stress physical exam: The patient's medications include .Suboxone Pantoprazole; Xarelto Metoprolol Stress Protocol:Exercise - Patricio Peak HR:162 bpm HR response: Approp Chronotropic Response Peak BP:144/78 mmHg HR recovery: Normal heart rate recovery Predicted HR: 168 bpm BP response: Normal resting BP with % of predicted HR: 96 appropriate response Test duration:4:30 min HR/BP product:[id number] Reason for termination:Leg Fatigue Max exercise: 6.4 METS Functional capacity:Fair (reduced) Chest pain:No chest pain ST Changes:No ST segment changes Arrhythmias Ventricular Premature Beats, Isolated. Symptoms Fatigue-LEG Shortness of breath. Complications Procedure complication was none. Stress Interpretation Abnormal Exercise Tolerance Test. Mild abnormality of exercise physiology. No EKG evidence of ischemia. Imaging Protocols - One Day Rest Stress Isotope:Tc99m Sestamibi Isotope: Tc99m Sestamibi Isotope dose:10.2 mCi IV Isotope dose:30.8 mCi IV Date:11/20/2022 Date:11/20/2022 Time to Rest Imagin minutes Time to Stress Imagin minutes Technique: Gated Technique: Gated Supine Supine Conclusions Summary 1. Myocardial perfusion imaging is probably normal at fair functional capacity. There is a a predominantly fixed defect, moderate in size, mild in intensity, involving the apical mid to inferior noel and the apical septal and mid arthur and inferoseptal noel. Findings can be seen with scar and artifact. 2. LV function is normal with normal wall motion and thickening. 3. EKG portion of the stress test is reported separately. Signatures * Event Display: NM Myocard Perf SPECT Multi Authored Date: Note * Kavita Laguna RN: PERFORM Event Display: Discharge/Transfer Note Hospital Authored Date: [id number] Nursing Discharge Note Entered On: 11/20/2022 16:59 EDT Performed On: 11/20/2022 16:59 EDT by Kavita Laguna RN Nursing Discharge Note 2 Discharge Time : 11/20/2022 16:59 EDT Discharge Level of Care at Discharge : Home/Snf/Foster Care Patient Left Unit Via : Ambulatory Patient Accompanied Off Unit with : Responsible adult DC Instructions Provided & Signed by Pt : Yes Patient Understands D/C Instructions : Yes Patient Instructions Discharge Signed : Yes Did Pt have Specialty Bed or Wound Vac : No Kavita Laguna RN - 11/20/2022 16:59 EDT * Alhaji RENEE, Yoshi: PERFORM, MODIFY Event Display: Discharge/Transfer Note Hospital Authored Date: [id number] Patient: ??TASNEEM QUIROGA ? Age:??52 Years?Sex:??Male?:??1970?? Patient Information Discharge Location: B Primary Care Physician:?? Admit Date/Time: 11/19/22 11:28 Discharge Date:??11/20/2022 15:14 Discharge Disposition Discharge Disposition: Home: No Services Discharge Diagnosis Chest pain (R07.9) Epigastric pain (R10.13) Abnormal EKG (R94.31) Paroxysmal atrial fibrillation (I48.0) GERD (gastroesophageal reflux disease) (K21.9) Opiate dependence (F11.20) History of alcohol use disorder ?? _ Discharge Medications Acetaminophen (acetaminophen 325 mg oral tablet)?650?Milligram?By Mouth?Every 4 hours?as needed?Temperature Greater than 100.5?Pain , Mild Buprenorphine-Naloxone (Suboxone 8 mg-2 mg sublingual film)?1?Film?Sublingual?2 times aday?dissolve under the tongue Lorazepam (Ativan 1 mg oral tablet)?1?tab(s)?1?Milligram?By Mouth?2 times a day?as needed?as needed for anxiety?for 5?Days Metoprolol (Metoprolol Tartrate 25 mg oral tablet)?1?tab(s)?25?Milligram?By Mouth?2 times a day Omeprazole (omeprazole 20 mg oral enteric coated capsule)?1?capsule?20?Milligram?By Mouth?2 times a day Oxycodone (oxyCODONE 5 mg oral tablet)?5?Milligram?1?tablet?By Mouth?Every 6 hours?as needed?for 5?Days?for pain rivaroxaban (Xarelto 20 mg oral tablet)?1?tab(s)?20?Milligram?By Mouth?Daily in PM?with evening meal ? Quality Measures Tobacco Use Treatment:? Medications Started Oxycodone Ativan as needed Medications Discontinued None Doses Changed None Allergies Allergies ?(Active and Proposed Allergies Only) NKA? (Severity: Unknown severity, Onset: Unknown) ? Future Appointments Monday 10:40 AM EDT ?? With: Lindsey RENEE, Lilly Ivan Where: [facility] Heart and Vasc Office [address] [place] [id number]- Status: Pending Hospital Course ??52-year-old male??with history of??opiate dependence on Suboxone,??alcohol use disorder in remission, GERD,??previous pancreatitis,??and paroxysmal??atrial fibrillation??on Xarelto??who presented to the emergency department complaining of??ongoing??lower chest and epigastric tightness??worse??over the past 5 days,??but present for over a few weeks.?? His description of the??symptoms is not consistent,??at times??describing it as pain and tightness, and other times describing it as hesitancy and palpitations. ??The patient states his symptoms started in his left leg,??with a knot behind his left knee that moved up into his groin region,??and has persisted in his epigastric and chest region.?? He also reports radiation into the left arm. ??He feels that??he has a blood clot that has notbeen detected on??multiple??studies at [facility].??He states he has been in the[facility] emergency department 6 or 7 times in the last month,??with negative work-ups for ACS, but never admitted to the hospital.?? He came here to [facility] today because it is [facility]. ?He does endorse that he has not been compliant with his Xarelto, and only started taking it consistently about 5 days ago.?? He denies shortness of breath. ??No vomiting.?? His GI doctor??in??[facility] has requested the MRI of the abdomen??which was done??on ay??and he does not have the results as of now. ?? In the emergency department, the patient has been afebrile and hemodynamically stable. ??No respiratory distress or hypoxia.?Initial EKG did show??new T wave inversions in the inferior leads when compared to June 2022, which were not persistent in repeat EKGs later today (despite persistence ofsymptoms).?? Laboratory work-up is unremarkable with high-sensitivity troponin values of 9 and 6, respectively.?? Patient admitted for further??management. ?? Chest pain (R07.9) Epigastric pain (R10.13) Abnormal EKG (R94.31):??Patient's chest pain by history is somewhat atypical for cardiac origin. ?? His serial troponins have been negative. ?? Patient Doppler ultrasound of bilateral lower extremity did not show any evidence of??DVT. ?? Patient had a D-dimer done which was??very low at less than 0.19.? We proceeded with a??stress test with nuclear imaging.?? Patient was able to??exercise for 4:30 minutes and achieved??about 6 METS He did not have any chest pain and no EKG changes noted as well. He also underwent a nuclear imaging which did not show any??regional wall motion abnormalities. ??There was a fixed defect involving the apical to mid inferior noel??which could be an artifact. Patient??would benefit from outpatient echocardiogram. Certainly anxiety seems to be a component here??and he responded well to oral Ativan. ??He was given a short course of Ativan as needed ?? Paroxysmal atrial fibrillation (I48.0):??Currently the patient is in a normal sinus rhythm. Continue metoprolol as prescribed. Continue Xarelto as prescribed. ?? GERD (gastroesophageal reflux disease) (K21.9):??Continue PPI as prescribed. ?? Opiate dependence (F11.20):??Continue Suboxone as prescribed. ?? Patient did not have any further chest pain??and so discharge plans??made for him to go home. ?? Objective Assessment and Plan Discharge Planning:? Vital Signs?? Temperature: 97.8 DegF (11/20/22 11:12:00) Temperature Route: Oral (11/20/22 11:12:00) Pulse Rate: 78 bpm (11/20/22 11:12:00) Respiratory Rate: 19 br/min (11/20/22 11:12:00) Systolic Blood Pressure: 123 mm Hg (11/20/22 11:12:00) Diastolic Blood Pressure:??86 mm Hg??High (11/20/22 11:12:00) Blood pressure sites: Arm, right (11/20/22 11:12:00) Mean Arterial Pressure: 98 mm Hg (11/20/22 11:12:00) Pulse Pressure: 37 mm Hg (11/20/22 11:12:00) Oxygen Saturation: 97 % (11/20/22 11:12:00) Mode of Delivery (Oxygen): Room air (11/20/22 11:12:00) Early Warning Score: 3 (11/20/22 13:11:01) ? . Physical Exam Constitutional: Alert, in no distress. Mental Status: Oriented to person, place and time. Head: Normocephalic. Eyes: Pupils are equal, round and reactive to light. Ear, Nose and Throat: Oropharynx clear, mucous membranes moist. Neck: Supple, Full range of motion. Respiratory: Clear to auscultation. No wheezing, rales or rhonchi. Cardiovascular: S1 S2 regular. No murmurs, rubs or gallops. Gastrointestinal: Abdomen soft, non-tender, non-distended. Normal bowel sounds. Genitourinary: No costovertebral angle tenderness. Neurologic: Cranial nerves II-XII grossly intact. No focal neurological deficits. Pending Results Add On Lab Order ordered on 11/19/2022 Add On Lab Order ordered on 11/19/2022 Follow-Up Appointments Added Follow Up ?Time Frame ?Comments Please follow-up with your primary care physician in 3 to 5 days Home Health Face to Face ^HomeHealthFTF Results Discharge Labs BLOOD COUNT & DIFF WBC 7.5 k/mm3 ()?? 11/19/2022 11:48 RBC 4.88 m/mm3 ()?? 11/19/2022 11:48 Hgb 15.4 Gm/dL ()?? 11/19/2022 11:48 Hct 45.3 % ()?? 11/19/2022 11:48 MCV 92.8 femtoliters ()?? 11/19/2022 11:48 MCH 31.6 pg ()?? 11/19/2022 11:48 MCHC 34.0 g/dL ()?? 11/19/2022 11:48 Platelet Count 376 k/mm3 ()?? 11/19/2022 11:48 RDW-SD 40.0 femtoliters ()?? 11/19/2022 11:48 MPV 9.4 femtoliters ()?? 11/19/2022 11:48 Nucleated RBC (Automated) 0.0 #/100 WBC'S ()?? 11/19/2022 11:48 Abs. NRBC 0.0 k/mm3 ()?? 11/19/2022 11:48 Abs. Neut 5.9 k/mm3 ()?? 11/19/2022 11:48 Abs. Lymph 1.0 k/mm3 ()?? 11/19/2022 11:48 Abs. Talbot 0.5 k/mm3 ()?? 11/19/2022 11:48 Abs. Eo 0.0 k/mm3 ()?? 11/19/2022 11:48 Abs. Baso 0.0 k/mm3 ()?? 11/19/2022 11:48 Neut % 79.4 % (High)?? 11/19/2022 11:48 Lymph % 12.9 % (Low)?? 11/19/2022 11:48 Talbot % 6.8 % ()?? 11/19/2022 11:48 Eos % 0.3 % ()?? 11/19/2022 11:48 Baso % 0.3 % ()?? 11/19/2022 11:48 Imm Gran 0.3 % ()?? 11/19/2022 11:48 Abs. Imm Gran 0.0 k/mm3 ()?? 11/19/2022 11:48 ?? CARDIAC High Sensitivity Troponin (HSTnT) 6 ng/L ()?? 11/19/2022 13:50 ? CHEM GENERAL Sodium 134 mmol/L ()?? 11/19/2022 11:49 Potassium 4.8 mmol/L ()?? 11/19/2022 11:49 Chloride 100 mmol/L ()?? 11/19/2022 11:49 Bicarbonate Level 23 mmol/L ()?? 11/19/2022 11:49 Anion Gap 11 ()?? 11/19/2022 11:49 Glucose Level 116 mg/dL (High)?? 11/19/2022 11:49 BUN 5 mg/dL (Low)?? 11/19/2022 11:49 Creatinine-Blood 0.9 mg/dL ()?? 11/19/2022 11:49 Estimated GFR Creatinine 101 ML/MIN/1.73 M2 ()?? 11/19/2022 11:49 Calcium 10.1 mg/dL ()?? 11/19/2022 11:49 Magnesium 2.0 mg/dL ()?? 11/20/2022 06:11 Protein, Total 5.8 Gm/dL (Low)?? 11/20/2022 06:11 Albumin 3.9 Gm/dL ()?? 11/20/2022 06:11 Alkaline Phosphatase 59 units/L ()?? 11/20/2022 06:11 Lipase 90 units/L (High)?? 11/20/2022 06:11 AST (SGOT) 17 units/L ()?? 11/20/2022 06:11 ALT (SGPT) 24 units/L ()?? 11/20/2022 06:11 Bilirubin, Total 0.6 mg/dL ()?? 11/20/2022 06:11 Bilirubin, Direct <0.2 mg/dL ()?? 11/20/2022 06:11 Bilirubin, Indirect Direct bilirubin is less than the measureable limit. Therefore, indirect mg/dL ()?? 11/20/2022 06:11 ?? COAG D-Dimer <0.19 mg/L FEU ()?? 11/19/2022 21:45 ? HEME OTHER Hold Blue Top SPECIMEN DISCARDED AFTER 4 HOURS. ()?? 11/19/2022 11:48 ? URINE OTHER Est Creatinine Clearance 101.84 mL/min ()?? 11/19/2022 12:26 ? VIROLOGY COVID-19 PCR Specimen Source NASAL ()?? 11/19/2022 17:23 COVID-19 PCR Result NEGATIVE ()?? 11/19/2022 17:23 ? 32??minutes spent on discharge * Kavita Laguna RN: PERFORM Event Display: Patient Education/Instruction Authored Date: [id number] Inpatient Adult Discharge Instructions [address] [address] Name: TASNEEM QUIROGA : 1970 Visit: 11/19/2022 11:28:00 Current Date: 11/20/2022 16:37 Account: [id number] Inpatient Adult Discharge Instructions We would like [...] and their families. Surveys are administered by [employer] ?? If further treatment with your primary care physician or another doctor is recommended, it is important for you to keep the appointment. Call your primary care physician or return to the Emergency Department immediately if your condition worsens, fails to improve, or new symptoms develop. If you need to find a doctor, you can call [facility] Link for a referral at [phone] or toll free at [phone] ([phone] or log in to [email or web address].. ?? [facility], in keeping with [facility] guidance, no longer requires face masks for [...] a health care karin of your choosing. [employer] is a website that allows you to securely view your medical information including your hospital discharge summary, office visit summaries, medications and follow-up visits. You can also request appointments, renew medications, and request access to your medical information using a health care karin of your choosing, or just ask a question. You can enroll at [email or web address] or register during your next office visit. You have been discharged from [facility], Patient Care Unit: D3B. If you have any questions regarding these instructions after you leave, please call us and we will be happy to assist you. [facility] Your Care Team Attending Physician Yoshi Ruby MD Discharging Providers Yoshi Ruby MD Reason for Admission Chest pain, epigastric pain Your Diagnosis Chest pain Epigastric pain Abnormal EKG Paroxysmal atrial fibrillation Opiate dependence GERD (gastroesophageal reflux disease) Tests Performed Below is a partial list of the tests performed during your hospitalization. You may have had other tests and procedures not included in this list. Please discuss all test results with your provider. Basic Metabolic Panel CBC w/ Differential COVID-19 (2019 Novel Coronavirus) PCR D Dimer Hepatic Function Panel High??Sensitivity??Troponin T Hold Blue Top Tube Lipase Magnesium Level Troponin T, High Sensitivity US Doppler Ext Lower Venous Left XR Chest 2 Views Frontal and Lat Advance Directive Health Care Proxy on File Yes - Health Care Proxy Discharge Vitals Temperature: 97.7 DegF Height: 180 cm Pulse Rate: 72 bpm Weight: 82 kg Respiratory Rate: 20 br/min Body Mass Index:??25.31 kg/m2??High Systolic Blood Pressure: 109 mm Hg Body surface area: 2.02 Diastolic Blood Pressure: 81 mm Hg ?? Oxygen Saturation: 98 % ?? Studies Pending All tests and labs ordered during this hospital stay have been completed unless listed below. Please discuss all pending results with your provider listed above in these instructions. ?? Add On Lab Order (Lab Add On Order) What to do next Instructions From Your Doctor Discharge Orders Scheduled Follow-Up Appointments Monday 10:40 AM EDT ?? With: Lindsey RENEE, Lilly Ivan Where: [facility] Heart and Vasc Office [address] [place] [address]- Status: Pending You Need to Schedule the Following Appointments Follow Up with??Please follow-up with your primary care physician in 3 to 5 days Discharge Medications TASNEEM QUIROGA :1970 Visit Date:11/19/2022 Medications: Please continue your medications until treatment is completed or stopped by your provider. Medications not listed below should be discontinued. Discuss any questions related to medications with your provider. What How Much When Instructions Next Dose New Acetaminophen (acetaminophen 325 mg oral tablet) 650 Milligram Oral Every 4 hours as needed for Pain , Mild Temperature Greater than 100.5 ?? as needed New Lorazepam (Ativan 1 mg oral tablet) 1 tab(s) Oral Twice a day as needed for as needed for anxiety Duration: 5 Days Pickup at [facility] 3 as needed New Oxycodone (oxyCODONE 5 mg oral tablet) 1 tab(s) Oral Every 6 hours as needed for for pain Duration: 5 Days Pickup at [facility] 3 as needed Unchanged Buprenorphine-Naloxone (Suboxone 8 mg-2 mg sublingual film) 1 Film Sublingual Twice a day dissolve under the tongue ?? tonight 9.10 Unchanged Metoprolol (Metoprolol Tartrate 25 mg oral tablet) 1 tab(s) Oral Twice a day tonight 9.10 Unchanged Omeprazole (omeprazole 20 mg oral enteric coated capsule) 1 capsule Oral Twice a day tonight 9.10 Unchanged rivaroxaban (Xarelto 20 mg oral tablet) 1 tab(s) Oral Daily in PM with evening meal ?? tomorrow with dinner 9.11 Pharmacy Information [facility]: [address], [place] [id number] [phone] ?? What How Much When Comments Stop Taking Aspirin (aspirin 81 mg oral delayed release tablet) 1 tab(s) Oral Daily Duration: 30 Days *stop taking* Stop Taking Diltiazem (Cardizem CD 120 mg/ 24 hours oral capsule, extended release) 1 capsule Oral Daily Duration: 30 Days *stop taking* Stop Taking Famotidine (famotidine 20 mg oral tablet) 1 tab(s) Oral Twice a day *stop taking* Stop Taking Miscellaneous Rx (METOPROLOL TARTRATE 25MG TABLETS) See instructions *stop taking* Stop Taking Ondansetron (ondansetron 4 mg oral tablet, disintegrating) 1 tab(s) Oral Every 6 hours as needed for as needed for nausea/vomiting Duration: 3 Days *stop taking* Test Results Below is a partial list of the most recent Laboratory test results done prior to this discharge. You may have had other tests and procedures not included in this list. Please discuss all test resultswith your provider. Est Creatinine Clearance - 101.84 mL/min (11/19/2022) Basic Metabolic Panel (11/19/2022) ???Sodium - 134 mmol/L???Potassium - 4.8 mmol/L???Chloride - 100 mmol/L???Bicarbonate Level - 23 mmol/L???Anion Gap - 11???Glucose Level - 116 mg/dL???BUN - 5 mg/dL???Creatinine-Blood - 0.9 mg/dL???Estimated GFR Creatinine - 101 ML/MIN/1.73 M2???Calcium - 10.1 mg/dL CBC w/ Differential (11/19/2022) ???WBC - 7.5 k/mm3???RBC - 4.88 m/mm3???Hgb - 15.4 Gm/dL???Hct - 45.3 %???MCV - 92.8 femtoliters???MCH - 31.6 pg???MCHC - 34.0 g/dL???Platelet Count - 376 k/mm3???RDW-SD - 40.0 femtoliters???MPV - 9.4 femtoliters???Nucleated RBC (Automated) - 0.0 #/100 WBC'S???Abs. NRBC - 0.0 k/mm3???Abs. Neut - 5.9 k/mm3???Abs. Lymph - 1.0 k/mm3???Abs. Talbot - 0.5 k/mm3???Abs. Eo - 0.0 k/mm3???Abs. Baso - 0.0 k/mm3???Neut % - 79.4 %???Lymph % - 12.9 %???Talbot % - 6.8 %???Eos % - 0.3 %???Baso % - 0.3 %???Imm Gran- 0.3 %???Abs. Imm Gran - 0.0 k/mm3 COVID-19 (2019 Novel Coronavirus) PCR (11/19/2022) ???COVID-19 PCR Specimen Source - NASAL???COVID-19 PCR Result - NEGATIVE D Dimer (11/19/2022) ? ?D-Dimer - <0.19 mg/L FEU Hepatic Function Panel (11/20/2022) ???Protein, Total - 5.8 Gm/dL???Albumin - 3.9 Gm/dL???Alkaline Phosphatase - 59 units/L???AST (SGOT) - 17 units/L? ?ALT (SGPT) - 24 units/L? ?Bilirubin, Total - 0.6 mg/dL? ?Bilirubin, Direct - <0.2 mg/dL???Bilirubin, Indirect - Direct bilirubin is less than the measureable limit. Therefore, indirect High??Sensitivity??Troponin T (11/19/2022) ???High Sensitivity Troponin (HSTnT) - 9 ng/L Hold Blue Top Tube (11/19/2022) ???Hold Blue Top - SPECIMEN DISCARDED AFTER 4 HOURS. Lipase (11/20/2022) ???Lipase - 90 units/L Magnesium Level (11/20/2022) ???Magnesium - 2.0 mg/dL Troponin T, High Sensitivity (11/19/2022) ???High Sensitivity Troponin (HSTnT) - 6 ng/L Allergies (NKA means No Known Allergies) NKA Problems Active Problems??(4) GERD (gastroesophageal reflux disease)?? History of alcohol use disorder?? Opiate dependence?? Paroxysmal atrial fibrillation?? Education Materials Below is the list of Educational Leaflet Providered with your Discharge Instructions. Understanding Heart Palpitations?? Heart Palpitations?? Anxiety Reaction?? Exercise Stress Test?? Noncardiac Chest Pain?? Uncertain Causes of Chest Pain?? Valuables and Belongings I fully understand and agree that [facility] accepts no responsibility for all my personal [...] to send valuables and belongings home. ?? Date for Pt to Sign Valuables/Belongings: 11/19/22 17:28:00 ?? Other Discharge Information ? Pulmonary Rehab Status?? Pulmonary Rehab Discharge Status?? Respiratory Rate: 20 br/min ? Common Emergency Awareness Tips IS [...] are strongly encouraged to quit. Please call [facility] [employer] Link at [phone] or [phone] ([phone]) or log in to [email or web address] for referrals to smoking cessation programs. ?? 612 Suicide & Crisis Lifeline is available 03/10 if you or someone you know needs to find a reason to keep living. By calling 092 you'll be connected to a skilled, trained counselor at a crisis center in your area. INPATIENT DISCHARGE INSTRUCTIONS SIGNATURE PAGE QUIROGATASNEEM FRANCIS Location:[facility] Registration Date and Time:11/19/2022 11:28 EDT Attending Physician: Alhaji RENEE, [facility], I TASNEEM QUIROGA, have received the above patient education materials/instructions and have verbalized understanding. If ambulance or transport services are being used I further acknowledge being givena choice of service. ?? If you need to contact me, please call me at this number: . Patient/Plant Pathologist Name: Patient/Plant Pathologist Signature: Relationship to Patient: Witness Name/Signature: Date: * Yoshi Ruby MD: PERFORM, SIGN, VERIFY Event Display: Patient Education Handout Authored Date: [id number] * Kavita Laguna RN: PERFORM Event Display: Patient Education Leaflets Authored Date: [id number] Understanding Heart Palpitations ?? [id number] Understanding Heart Palpitations Heart palpitations are the feeling you have when your heartbeat seems to be racing, pounding, skipping, or fluttering. Heart palpitations are most often felt in the chest. They may also sometimes be felt in the neck, ears, or head. What causes heart palpitations? In most cases, heart palpitations are caused by: ??? Stress or anxiety ??? Exercise ? Some medicines ??? Caffeine ??? Nicotine ??? Alcohol ??? Illegal drugs such as cocaine ??? Health problems such as anemia or overactive thyroid Many heart palpitations are harmless. But in some cases, palpitations may be caused by a problem. This might be an abnormal heart rhythm (arrhythmia). You and your healthcare provider may need to manage these mcfp. Or you may need treatment right away. ?? How are heart palpitations treated? Treatments for heart palpitations depend on the cause. Choices may include: ??? Managing the thingsthat trigger your heart palpitations. This could mean: o Learning ways to reduce stress and anxietyo Staying away from caffeine, nicotine, alcohol, and illegal drugs o Stopping the use of certain medicines, under your doctor???s guidance ??? Taking medicines or having procedures or surgery to treat an arrhythmia or other health problem that is causing your symptoms ?? How are heart palpitations diagnosed? Your provider will diagnose the cause of your heart palpitations by looking at your health history,doing a physical exam, and ordering tests. Tests may include: ??? Electrocardiogram (ECG) to assessyour heart's rhythm ??? Blood work to see if you have any metabolic or endocrine problems ??? Ambulatory cardiac monitoring to monitor your heart rhythm over time ??? Echocardiogram (ECHO) to assess your heart for structural problems ?? What are possible complications of heart palpitations? Complications of heart palpitations are rare unless they are caused by a problem such as an arrhythmia. In such cases, complications can include: ??? Fainting ??? Heart failure. This problem occurs when the heart is so weak it no longer pumps blood well. ??? Blood clots and stroke ??? Sudden cardiac arrest. This problem occurs when the heart suddenly stops beating. ?? When should I call my healthcare provider? Call your healthcare provider right away if you have any of these: ??? Palpitations that prevent you from sleeping or otherwise affect your quality of life. ??? Symptoms that don???t get better with treatment, or symptoms that get worse ?? Call 911 Call 911 if any of the following occur: ??? New symptoms, such as chest pain or tightness, shortness of breath or trouble breathing, dizziness, confusion, or fainting ??? Sudden numbness or weakness in the face, arms, or legs ?? Last Reviewed Date: 2021 ?? [employer]. All rights reserved. This information is not intended as a substitute for professional medical care. Always follow your healthcare professional's instructions. ?? * Kavita Laguna RN: PERFORM Event Display: Patient Education Leaflets Authored Date: [id number] Heart Palpitations ?? [id number] Heart Palpitations Palpitations are the feeling that [...] Coronary artery disease ??? High blood pressure [id number] causes: ??? Certain medicines such as asthma [...] Tell your doctor about any prescription or [id number] or herbal medicines you take. ?? Follow-up [...] palpitations. ?? Last Reviewed Date: 2021 ?? 1520-0520 [employer]. All rights reserved. This information is not intended as a substitute for professional medical care. Always follow your healthcare professional's instructions. ?? * Kavita Laguna RN: PERFORM Event Display: Patient Education Leaflets Authored Date: [id number] Anxiety Reaction ?? [id number] Anxiety??Reaction Anxiety is the feeling we all get when we think something bad might happen. It is a normal responseto stress. It most often causes only a mild reaction. But it can interfere with daily life when anxiety is more severe. In some cases, you may not know what you???re anxious about. Anxiety seems to have both mental and physical triggers. You may have stress from home and family. Or work and social relationships. Anxiety tends to run in families. This may mean it???s linked to genes. During an anxiety reaction, you may feel: ??? Helpless ??? Nervous ??? Depressed ??? Grouchy Your body may show signs of anxiety in many ways. You may have: ??? Dry mouth ??? Shakiness ??? Dizziness ??? Weakness ??? Trouble breathing ??? Fast breathing ???Chest pressure ??? Sweating ??? Headache ??? Nausea ??? Diarrhea ??? Tiredness ??? Inability to sleep ??? Sexual problems Home care Try to find those things that set off anxiety in your life. They may not be obvious. They may include: ??? Daily hassles of life. This can include traffic jams, missed appointments, or car troubles. ???Major life changes. This means both good changes, such as a new baby or job promotion. This can also mean tough life changes, such as loss of a job or loss of a loved one. ??? Overload. This means feeling that you have too many responsibilities. And that you can't take care of all of them. ??? Feeling helpless. You may feel you don???t have any control or choices. You may feel that your problems can't be solved. Notice how your body reacts to stress. This will help you take action before the stress sets off anxiety. When you can, make changes to reduce the sources of your stress. But stress in life often can't be prevented. It is important to learn how to manage stress to reduce anxiety. There are many proven methods that will reduce your anxiety. These include: ??? Exercise ??? Good nutrition ??? Getting enough sleep ??? Relaxation methods ??? Breathing exercises ??? Visualization ??? Biofeedback ??? Meditation ??? Counseling ??? Medicine For more information about this, talk with your healthcare provider. Or check online or at your local library or bookstore. You'll find many books and audiobooks on this subject. ?? Follow-up care If you feel your anxiety is not getting better with self-help, call your healthcare provider. Or make an appointment with a counselor. You may need short-term counseling or medicine to help you manage anxiety. ?? Call 911 Call 911 if any of the following occur: ??? Trouble breathing ??? Confusion ??? Drowsiness or trouble waking up ??? Fainting ??? Rapid heart rate ??? Seizure ??? New chest pain that becomes more severe, lasts longer, or spreads into your shoulder, arm, neck, jaw, or back Call or text 988 if you have thoughts of harming yourself or others. You will be connected to trained crisis counselors at the National Suicide Prevention Lifeline. An online chat option is also available at www.suicidepreventiong4interactiveline.org. You can also call Lifeline at 064-622-FDNL (467-329-6685). Lifeline is free and available 03/10. ?? When to get medical advice Call your healthcare provider right away if any of the following occur: ??? Symptoms that don't improve or get worse, such as feelings of hopelessness or overwhelming sadness ??? Severe headache not eased by rest and mild pain medicine The National Suicide Prevention Lifeline is available at 559-681-FQIC (909-717-4899). The Lifeline is available 03/10 and provides free and confidential support. The Lifeline also has an online chat at www.suicideElastic Path Software.org. ?? Last Reviewed Date: 2021 ?? 6764-4576 [employer]. All rights reserved. This information is not intended as a substitute for professional medical care. Always follow your healthcare professional's instructions. ?? Patient Care team information Care Team Personnel Name: Nuvia Perez RN Position: [facility] RN Member Role: Primary Care Nurse Name: Dilcia Hartmann Position: S RN Member Role: Primary Care Nurse Name: Kavita Laguna RN Position: S RN Member Role: Primary Care Nurse Name: Shantanu Marie MD Position: [facility] Resident Member Role: ED Resident Address: Address: [address] [place] [address] Name: Jimenez Tsang MD Position: [facility] Resident Member Role: ED Resident Address: Address: [address] [place] [address] Name: Claribel Brooks RN Position: [facility] ED RN W/OE and Tasks Member Role: Patient Care Provider Name: Jenn Aguirre MD Position: [facility] ED Medicine MD Address: Address: [address] [place] [address] [place] [address]- Care Team Related Persons Name: ABRAHAM NARVAEZ Address: home [address] [place] [id number]
--- OUTSIDE RECORDS SUMMARY | 2023-06-10 18:25 | XMS_ITS | Continuity of Care Document ---
Author Name Unknown Organization [facility] Address [address] [address]- Care Team Providers Care Slot Floorperson Name Role Phone Pepe Dias [id number]07[facility] - 01/11/[address] [address]- Attending Physician: Lilly Portillo MD Admitting Physician: Lilly Portillo MD Referring Physician: Pepe Dias Allergies, Adverse [...] S Outreach Member Role: PCP Address: Address: [address] [place] [address]- Name: Yenny Vergara Position: S RN Member Role: Primary Care Nurse Care Team Related Persons Name: ABRAHAM NARVAEZ Address: home [address] [place] [address]
--- OUTSIDE RECORDS SUMMARY | 2023-06-10 18:25 | XMS_ITS | Continuity of Care Document ---
Author Name Unknown Organization [facility] ter Address [address] [place] [address]- Care Team Providers Care Teacher Drama Name Role Phone Emre PLYWOOD MATCHER, Lilly Primary Care Physician [place] [facility] [place] - 09/08/[address] [address]- Encounter Diagnosis Atrial fibrillation(Final) - 09/07/21 Discharge Disposition: A-D/C Home Attending Physician: Isauro North MD Admitting Physician: Emilee RENEE, Kamlesh Referring Physician: Not on Staff, Referring MD [...] not want the flu vaccine, refused Medications Cardizem CD 120 mg/24 hours oral capsule, extended release 120 mg, 1, capsule, By Mouth, Daily, # 30 capsule, Refills 1, Tot. Refills 1, Maintenance, 09/08/2212:20:00 EDT, Route to Pharmacy Electronically, [facility], Partial fill upon patientrequest if the prescription is for a schedule II op... Start Date: 09/08/21 Status: Ordered diltiazem 30 mg oral tablet 30 mg, Tablet, By Mouth, 15-20 mins after IV, 09/08/21 7:00:00 EDT Start Date: 09/08/21 Stop Date: 09/08/21 Status: Completed rivaroxaban 20 mg oral tablet = 20 mg, By Mouth, Daily at supper, # 30 tablet, 3 Refills, Maintenance, 02/27/21 9:56:00 EST, Tablet, [facility], Partial fill upon patient [...] Exam Date Time Procedure Performing Provider Status 09/07/21 4:34 PM Chest Portable Haven Cruz; Auth ( Verified) Notes: (Chest Portable) Reason For Exam: Chest Pain;Other: RESULT: Chest Portable Chest Portable INDICATION: Palpitations present, hx of afib, can feel when it happens. had just finished lunch andwas walking at time. On xeralto and mtoprolol. states he stopped taking the white one 2 months ago bc he felt his BP getting low at home, did not consult PCP; Reason: Chest Pain COMPARISON: 02/26/2021. FINDINGS: LINES AND TUBES: None. LUNGS AND PLEURA: Clear lungs. Normal pulmonary vascularity. No pleural effusion. No pneumothorax. HEART, MEDIASTINUM AND CATE: Heart is normal in size. Normal upper mediastinal and hilar contour. BONES AND SOFT TISSUES: No acute abnormality. IMPRESSION: No acute abnormality. I have personally reviewed the images and I agree with this report. WSN: [id number] Ordering Physician: Juma Koch Dictated By: Karley Bailey DO Dictated Date/Time: 09/07/21 4:43 pm Reviewed By: Avery Costa MD Signed By: Avery Costa MD Signed Date/Time: 09/07/21 4:48 pm Transcribed By: ARON Transcribed Date/Time: 09/07/21 4:40 pm Vital Signs Most recent to oldest [Reference Range]: 1 2 3 Height 180 cm (09/08/21 11:46 AM) 180 cm (09/08/21 6:51 AM) 180 cm (09/08/21 3:51 AM) Weight 90 kg (09/07/21 10:28 PM) Oxygen Saturation [94-100 %] 100 % (09/08/21 11:46 AM) 99 % (09/08/21 6:51 AM) 98 % (09/08/21 3:51 AM) Pulse Rate [55-90 bpm] 58 bpm (09/08/21 11:46 AM) 62 bpm (09/08/21 9:16 AM) 62 bpm (09/08/21 6:51 AM) Body Mass Index [18.5-24.99] 27.78 *H* (09/07/21 10:28 PM) Blood Pressure [90-138/55-84 mm Hg] 125/43mm Hg (09/08/21 11:46 AM) 121/85mm Hg (09/08/21 9:16 AM) 121/85mm Hg (09/08/21 6:51 AM) Respiratory Rate [16-30 br/min] 18 br/min (09/08/21 11:46 AM) 18 br/min (09/08/21 10:39 AM) 20 br/min (09/08/21 6:51 AM) Temperature [96.8-100.4 DegF] 98.3 DegF (09/08/21 11:46 AM) 97.6 DegF (09/08/21 6:51 AM) 97.8 DegF (09/08/21 3:51 AM) Mode of Delivery (Oxygen) Room air (09/08/21 11:46 AM) Room air (09/08/21 6:51 AM) Room air (09/08/21 3:51 AM) Blood pressure sites Arm, right (09/08/21 11:46 AM) Arm, right (09/08/21 6:51 AM) Arm, left (09/08/21 3:51 AM) Temperature Route Oral (09/08/21 11:46 AM) Oral (09/08/21 6:51 AM) Oral (09/08/21 3:51 AM) Dry Weight 90 kg (09/07/21 10:28 PM) 90 kg (09/07/21 7:42 PM) 90 kg (09/07/21 3:00 PM) Dry Weight Obtained Via Patient/family s tated (09/07/21 10:28 PM) Patient/family stated (09/07/21 1:57 PM) Social History Social History Type Response Smoking Status 10 or more cigarette s (1/2 pack or more)/day in last 30 days entered on: 09/07/21 Sex
--- OUTSIDE RECORDS SUMMARY | 2023-06-10 18:25 | XMS_ITS | Continuity of Care Document ---
Author Name Unknown Organization [facility] ter Address [address] [place] [address]- Care Team Providers Care Job Checker Name Role Phone Pepe Dias Primary Care Physician [place] [facility] [place]CT R [id number] Date(s): 01/05/23 - 01/06/[address] [address]- Discharge Disposition: A-D/C Walkout Attending Physician: Not [...] [Reference Range]: 1 2 Height 180 cm (01/05/23 10:54 PM) 180 cm (01/05/23 9:22 PM) Oxygen Saturation [94-100 %] 98 % (01/05/23 9:22 PM) 100 % (01/05/23 9:12 PM) Pulse Rate [55-90 bpm] 67 bpm (01/05/23 9:22 PM) 74 bpm (01/05/23 9:12 PM) Blood Pressure [90-138/55-84 mm Hg] 147/ 101mm Hg *H* (01/05/23 9:22 PM) Respiratory Rate [16-30 br/min] 18 br/mi n (01/05/23 9:22 PM) Temperature [96.8-100.4 DegF] 97.9 DegF (01/05/23 9:22 PM) Mode of Delivery (Oxygen) Room air (01/05/23 9:22 PM) Room air (01/05/23 9:12 PM) Blood pressure sites Arm, left (01/05/23 9:22 PM) Temperature Route Oral (01/05/23 9:22 PM) Dry Weight 86.25 kg (01/05/23 10:54 PM) 86.25 kg (01/05/23 9:22 PM) Dry Weight Obtained Via Patient/family s tated (01/05/23 9:22 PM) Social History Social History Type Response Smoking Status 10 or more cigarette s (1/2 pack or more)/day in last 30 days entered on: 05/07/22 Sex EKG study * Event Display: EKG Authored Date: * Event Display: ECG 12-Lead Authored Date: Please click on pdf link to open report * Event Display: ECG 12-Lead Authored Date: Ventricular Rate: 65 BPM Atrial Rate: 65 BPM P-R Interval: 154 ms QRS Duration: 96 ms Q-T Interval: 408 ms QTC Calculation(Bazett): 424 ms P [place]: 57 degrees R [place]: 20 degrees T [place]: 62 degrees Normal sinus rhythm Normal ECG When compared with ECG of 30-DEC-2022 12:48, No significant change was found Confirmed by XENIA CHAU ([id number]) on 01/06/2023 3:46:27 PM [place]: XENIA CHAU Patient Care team information Care Team Personnel Name: Nuvia Perez RN Position: S RN Member Role: Primary Care Nurse Name: Dilcia Hartmann Position: S RN Member Role: Primary Care Nurse Name: Kavita Laguna RN Position: S RN Member Role: Primary Care Nurse Name: Pepe Dias Position: S Outreach Member Role: PCP Address: Address: [address] [place] [address] Name: Yenny Vergara Position: S RN Member Role: Primary Care Nurse Care Team Related Persons Name: SOLANGE ABRAHAM Address: home [address] [place] [id number]
--- OUTSIDE RECORDS SUMMARY | 2023-06-10 18:25 | XMS_ITS | Continuity of Care Document ---
Author Name Unknown Organization [facility] ter Address [address] [place] [address]- Care Team Providers Care Epic Cadence Specialists Name Role Phone Magan Wallace MD Primary Care Physician [place] [facility] [place] 06/[place]/[address] [address]- Discharge Disposition: A-D/C Home Attending Physician: Ibrahima Child MD Admitting Physician: Ibrahima Child MD Referring Physician: Not on Staff, Referring [...] 02/27/21 9:55:00 EST, Route to Pharmacy Electronically, [facility], Partial fill upon patient request if the prescription is for a schedule II opioid... Start Date: 02/27/21 Stop Date: 06/27/21 Status: Ordered rivaroxaban 20 mg oral tablet = 20 mg, By Mouth, Daily at supper, # 30 tablet, 3 Refills, Maintenance, 02/27/21 9:56:00 EST, Tablet, [facility], Partial fill [...] opioid drug. Start Date: 02/26/21 Status: Ordered Vital Signs Most recent to oldest [Reference Range]: 1 2 3 Oxygen Saturation [94-100 %] 98 % (06/09/21 3:07 PM) 98 % (06/09/21 2:00 PM) 100 % (06/09/21 1:13 PM) Pulse Rate [55-90 bpm] 74 bpm (06/09/21 3:07 PM) 82 bpm (06/09/21 2:00 PM) 162 bpm *H* (06/09/21 1:13 PM) Blood Pressure [90-138/55-84 mm Hg] 120/65mm Hg (06/09/21 3:07 PM) 112/74mm Hg (06/09/21 2:00 PM) 145/84mm Hg *H* (06/09/21 1:04 PM) Respiratory Rate [16-30 br/min] 16 br/min (06/09/21 3:07 PM) 16 br/min (06/09/21 2:00 PM) 18 br/min (06/09/21 1:13 PM) Temperature [96.8-100.4 DegF] 98.1 DegF (06/09/21 3:07 PM) 98 DegF (06/09/21 1:04 PM) Mode of Delivery (Oxygen) Room air (06/09/21 3:07 PM) Room air (06/09/21 2:00 PM) Room air (06/09/21 1:13 PM) Blood pressure sites Arm, left (06/09/21 1:04 PM) Temperature Route Oral (06/09/21 3:07 PM) Oral (06/09/21 1:04 PM)
--- OUTSIDE RECORDS SUMMARY | 2023-06-10 18:25 | XMS_ITS | Continuity of Care Document ---
Author Name Unknown Organization [facility] ter Address [address] [place] [address]- Care Team Providers Care Bank Courier Name Role Phone Lilly Andrea NP Primary Care Physician En[place] [facility] [place] Date(s): 12/09/22 - 12/09/[address] [address]- Discharge Disposition: A-D/C Walkout Attending Physician: Not [...] Exam Date Time Procedure Performing Provider Status 12/09/22 12:40 PM Chest 2 Views Frontal and Lat Augustine Moran; Auth (Verified) Notes: (Chest 2 Views Frontal and Lat) Reason For Exam: TIA, C/Q CHF;Other: RESULT: Chest 2 Views Frontal and Lat Chest 2 Views Frontal and Lat Hx of Present Illness: started xeralto 5 weeks ago for a.fib. last 3 days after taking xeralto has had abd pain and left hip pain. numbness to bilat arms and legs. hot flash.; Reason: Other:; TIA, C Q CHF; Clinical Question(s): Trauma COMPARISON: 12/08/22 FINDINGS: LINES AND TUBES: None. LUNGS AND PLEURA: Clear lungs. Normal pulmonary vascularity. No pleural effusion. No pneumothorax. HEART, MEDIASTINUM AND CATE: Heart is normal in size. Normal mediastinal and hilar contour. BONES AND SOFT TISSUES: No acute abnormality. IMPRESSION: No acute abnormality. WSN: [id number] Ordering Physician: Patti Buchanan Dictated By: Nathaniel Lanier MD Dictated Date/Time: 12/09/22 12:48 p Reviewed By: Nathaniel Lanier MD Signed By: Nathaniel Lanier MD Signed Date/Time: 12/09/22 12:48 pm Transcribed By: ARON Transcribed Date/Time: 12/09/22 12:41 pm Vital Signs Most recent to oldest [Reference Range]: 1 2 3 Height 180 cm (12/09/22 9:34 AM) Oxygen Saturation [94-100 %] 100 % (12/09/22 2:39 PM) 97 % (12/09/22 12:52 PM) 100 % (12/09/22 9:34 AM) Pulse Rate [55-90 bpm] 68 bpm (12/09/22 2:39 PM) 87 bpm (12/09/22 12:52 PM) 92 bpm *H* (12/09/22 9:34 AM) Blood Pressure [90-138/55-84 mm Hg] 122/81mm Hg (12/09/22 2:39 PM) 142/97mm Hg *H* (12/09/22 12:52 PM) 162/102mm Hg *H* (12/09/22 9:34 AM) Respiratory Rate [16-30 br/min] 18 br/min (12/09/22 2:39 PM) 18 br/min (12/09/22 9:34 AM) Temperature [96.8-100.4 DegF] 98.5 DegF (12/09/22 2:39 PM) 98.0 DegF (12/09/22 12:52 PM) 98.1 DegF (12/09/22 9:34 AM) Mode of Delivery (Oxygen) Room air (12/09/22 2:39 PM) Room air (12/09/22 12:52 PM) Room air (12/09/22 9:34 AM) Blood pressure sites Arm, left (12/09/22 2:39 PM) Arm, left (12/09/22 12:52 PM) Arm, left (12/09/22 9:34 AM) Temperature Route Oral (12/09/22 2:39 PM) Oral (12/09/22 12:52 PM) Oral (12/09/22 9:34 AM) Dry Weight 82 kg (12/09/22 9:34 AM) Dry Weight Obtained Via Patient/family s tated (12/09/22 9:34 AM) Social History Social History Type Response Smoking Status 10 or more cigarette s (1/2 pack or more)/day in last 30 days entered on: 05/07/22 Sex Patient Care team information Care Team Personnel Name: Nuvia Perez RN Position: [facility] RN Member Role: Primary Care Nurse Name: Dilcia Hartmann Position: [facility] RN Member Role: Primary Care Nurse Name: Kavita Laguna RN Position: S RN Member Role: Primary Care Nurse Name: Lilly Andrea NP Position: Reference Physician Member Role: PCP Address: Address: [address] [place] [id number] Name: Yenny Vergara Position: S RN Member Role: Primary Care Nurse Care Team Related Persons Name: ABRAHAM NARVAEZ Address: home [address] [place] [address]
--- OUTSIDE RECORDS SUMMARY | 2023-06-10 18:25 | XMS_ITS | Continuity of Care Document ---
Author Name Unknown Organization [facility] ter Address [address] [place] [address]- Care Team Providers Care Aircraft Maintenance Director Name Role Phone Pepe Dias Primary Care Physician [place] [facility] [place] R [id number] Date(s): 03/10/23 - 03/11/[address] [address]- Discharge Disposition: A-D/C Walkout Attending Physician: Not [...] 02/02/23 9:04:00 EST, Route to Pharmacy Electronically, [facility], Partial fill upon patient request if... Start Date: 02/02/23 Stop Date: 03/04/23 Status: Ordered hydrOXYzine pamoate 50 mg oral capsule 1 capsule = 50 mg, By Mouth, 4 times a day, TAKE 1 CAPSULE BY MOUTH UP TO FOUR TIMES DAILY NEEDED FOR MILD TO MODERATE ANXIETY, # 60 capsule, 0 Refills, Maintenance, 02/02/23 9:04:00 EST, Capsule,[facility], Partial fill upon patient... [...] 02/02/23 9:10:00 EST, Route to Pharmacy Electronically, [facility], Partial fill upon patient request if [...] Exam Date Time Procedure Performing Provider Status 03/10/23 7:54 PM Chest 2 Views Frontal and Lat Nathan Treviño (Verified) Notes: (Chest 2 Views Frontal and Lat) Reason For Exam: Chest Pain;Other: RESULT: Chest 2 Views Frontal and Lat Chest 2 Views Frontal and Lat INDICATION: Intermittent chest pain that radiates to the left side since April. COMPARISON: 03/01/2023. FINDINGS: LINES AND TUBES: None. LUNGS AND PLEURA: No focal consolidation. Normal pulmonary vascularity. No pleural effusion. No pneumothorax. HEART, MEDIASTINUM AND CATE: Heart is normal in size. Normal mediastinal and hilar contour. BONES AND SOFT TISSUES: No acute abnormality. IMPRESSION: No acute abnormality. I have personally reviewed the images and I agree with this report. WSN: [id number] Ordering Physician: Tadeo Ramos Dictated By: Dennis Rush MD Dictated Date/Time: 03/10/23 8:06 pm Reviewed By: Mirna Glover MD Signed By: Mirna Glover MD Signed Date/Time: 03/10/23 8:11 pm Transcribed By: ARON Transcribed Date/Time: 03/10/23 8:02 pm Vital Signs Most recent to oldest [Reference Range]: 1 2 Height 183 cm (03/10/23 7:37 PM) Oxygen Saturation [94-100 %] 97 % (03/10/23 5:56 PM) 97 % (03/10/23 5:40 PM) Pulse Rate [55-90 bpm] 77 bpm (03/10/23 5:56 PM) 82 bpm (03/10/23 5:40 PM) Blood Pressure [90-138/55-84 mm Hg] 112/ 85mm Hg (03/10/23 5:56 PM) Respiratory Rate [16-30 br/min] 17 br/mi n (03/10/23 5:56 PM) Temperature [96.8-100.4 DegF] 97.8 DegF (03/10/23 5:56 PM) Mode of Delivery (Oxygen) Room air (03/10/23 5:56 PM) Room air (03/10/23 5:40 PM) Blood pressure sites Arm, left (03/10/23 5:56 PM) Temperature Route Oral (03/10/23 5:56 PM) Dry Weight 84 kg (03/10/23 7:37 PM) Dry Weight Obtained Via Patient/family s tated (03/10/23 7:37 PM) Social History Social History Type Response Smoking Status 10 or more cigarette s (1/2 pack or more)/day in last 30 days entered on: 05/07/22 Sex EKG study * Event Display: EKG Authored Date: * Event Display: EKG Authored Date: Patient [...] Outreach Member Role: PCP Address: Address: [address] [place] [address] Name: Bhupendra Gonzalez RN Position: S RN Member Role: Primary Care Nurse Name: Yenny Vergara Position: S RN Member Role: Primary Care Nurse Care Team Related Persons Name: ABRAHAM NARVAEZ Address: home [address] [place] [address]
[2023-06-10 18:31] LABS: MANUAL DIFF FLAG NO
[2023-06-10 18:34] LABS: Basophils Absolute Auto 0.1 X10*3/uL (0.0-0.2); Basophils Percent Auto 0.8 % (0-2); Eosinophils Absolute Auto 0.1 X10*3/uL (0.0-0.4); Eosinophils Percent Auto 1.1 % (0-4); Hematocrit 43.8 % (42.0-52.0); Hemoglobin 14.9 g/dl (14.0-18.0); Imm Gran Abs Auto 0.01 X10*3/uL (0.00-0.03); Imm Gran Pct Auto 0.2 % (0.0-0.4); Lymphocytes Absolute Auto 1.5 X10*3/uL (1.2-4.9); Lymphocytes Percent Auto 23.2 % (20-40); Mean Corpuscular Hemoglobin 31.1 pg (27.0-33.0); Mean Corpuscular Volume 91.4 fL (80.0-98.0); Mean Platelet Volume 8.5 fL (9.4-12.4); Monocytes Absolute Auto 0.6 X10*3/uL (0.1-1.2); Monocytes Percent Auto 9.1 % (2-11); Neutrophils Absolute Auto 4.3 x10*3/uL (2.0-8.3); Neutrophils Percent Auto 65.6 % (45-73); Platelet Count 328 X10*3/uL (160-400); Red Blood Count 4.79 X10*6/uL (4.60-5.80); Red Cell Distribution Width 12.4 % (11.0-16.0); White Blood Count 6.6 X10*3/uL (4.8-10.8)
[2023-06-10 18:47] LABS: Anion Gap 11 (12-20); Blood Urea Nitrogen 16 mg/dL (9-16); Calcium 9.1 mg/dL (8.4-10.2); Carbon Dioxide 28 mmol/L (22-29); Chloride 105 mmol/L (96-108); Creatinine Clr Calc Pharmacy 88.8; Estimated Glomerular Filt Rate > 60; Glucose Random 97 mg/dL (60-115); Potassium 4.8 mmol/L (3.3-5.1); Sodium 139 mmol/L (135-145)
[2023-06-10 18:56] LABS: Troponin-I High Sensitivity < 2.7 ng/L (<3.5-35.0)
--- NOTE | 2023-06-10 19:12 | PC.NURSE ---
pt from home a&ox4, respirations even and unlabored, pt reporting onset of midsternal chest pain, with palpitations. pt reports having this happen 2 times prior to arrival. pt denies n/v/d. pt normal sinus on tele 67-72bpm.
[2023-06-10 19:33] VITALS: BP 129/86; PULSE 61; RESP 16; TEMP 36.9; O2SAT 94
[2023-06-10] MEDS: LORazepam 1 MG TABLET 2 MG PO (20:04)
[2023-06-10 20:08] VITALS: BP 140/99; PULSE 59; RESP 18; TEMP 37.2; O2SAT 98
== END 2023-06-10 20:09 | disposition home or self-care (01) ==
PROVIDERS: Physician Assistant Medical; Emergency Provider Emergency Medicine Emergency Medical Services; PCP Family Medicine
DX: R07.89 Other chest pain (principal); I48.91 Unspecified atrial fibrillation
CPT/HCPCS: 36415; 71046; 80048; 84484; 85025; 93005; 99283; 99285

== ENCOUNTER → 2023-06-10 18:03 | Outpatient (BNV) | payer MEDICAID, SELFPAY | PROVIDERS: Emergency Provider Emergency Medicine Emergency Medical Services; PCP Family Medicine; Visit Provider Internal Medicine Cardiovascular Disease | DX: R07.9 Chest pain, unspecified (principal) | CPT/HCPCS: 93010 ==

== ENCOUNTER 2023-06-22 20:06 | Emergency (ER) | payer MEDICAID, SELFPAY ==
--- NOTE | 2023-06-22 | ECG_ITS ---
Test Reason : CP Blood Pressure : / mmHG Vent. Rate : 068 BPM Atrial Rate : 068 BPM P-R Int : 148 ms QRS Dur : 098 ms QT Int : 408 ms P-R-T Axes : 037 008 047 degrees QTc Int : 433 ms Normal sinus rhythm Normal ECG When compared with ECG of 10-JUN-2023 17:47, No significant change was found Referred By: Generic ED Physician Electronically Signed By:Jonel Maxwell
--- NOTE | ~2023-06-22 | XR_ITS ---
EXAMINATION: XR CHEST CLINICAL INFORMATION: Shortness of breath, chest pain. COMPARISON: Chest radiograph 06/10/2023. TECHNIQUE: 2 views of the chest were obtained. FINDINGS: Normal appearance of the cardiomediastinal silhouette. No focal airspace opacities, pleural effusion or pneumothorax. Thoracic spondylosis. No acute osseous findings. XR/XR chest 2V IMPRESSION: No acute cardiopulmonary findings.
[2023-06-22 20:18] VITALS: BP 136/88; PULSE 69; RESP 20; TEMP 37.3; O2SAT 97; BMI 28.6
--- NOTE | 2023-06-22 20:18 | ED_ITS ---
HPI - Chest Pain General Chief Complaint: Chest Pain Stated Complaint: chest pain Time Seen by Provider: 06/22/23 22:22 History of Present Illness HPI narrative: The patient is a 53-year-old male who is currently on metoprolol and rivaroxaban for an episode of atrial fibrillation that he had a couple of years ago. The patient has had multiple emergency room visits at this hospital and other hospitals because of his concern about a possible blood clot. He says that couple of years ago he had an episode of atrial fibrillation at [facility] that was unattended for 7 hours. He says that he subsequently developed pain behind his left knee that was associated with a lump. He says this lump subsequently shot up to his groin and he has been concerned about the possibility of a blood clot in his system ever since. He has had multiple emergency room visits out of concern about blood clots or other problems. He has been referred to Cardiology. He has had multiple testings of multiple modalities. The patient says that over the last few weeks he has been drinking more than usual. He says he has to nips with breakfast, 2 nips at lunch, and 2 nips in the evening. Says he has been drinking because he feels bad about his health. He says the strange thing about his symptoms is that they are usually better when he is exerting himself and worse when he is resting. He has been told that his symptoms might be related to anxiety or depression but he is convinced that his symptoms occur when he has not feeling anxious or depressed but when he is trying to rest. He says that he has gotten involved with the [facility] and people come to his house to talk to him about his mental health. The patient says that he came to the emergency room today because he has been having what he describes as ?hot flashes over the last week. He describes a sense of intense hot discomfort in his chest that can come on out of no where. The symptoms can last a couple of hours. He had a severe episode today. He says that he also had a sense of palpitations in his chest that was very unsettling. Related Data Previous Rx's ?Medication ?Instructions ?Recorded dexamethasone 4 mg tablet 4 mg PO BID #6 tabs 05/17/23 oxycodone 5 mg tablet 5 mg PO Q6H PRN pain #12 tabs 05/17/23 Allergies Allergy/AdvReac Type Severity Reaction Status Date / Time No Known Allergies Allergy Verified 06/22/23 20:24 Review of Systems 2 Review of Systems: Yes all other systems are reviewed and are negative [facility] Social History Social History Alcohol intake: current Alcohol intake frequency: a few times a week Alcohol type: hard liquor Smoked in Last 30 Days: Yes Use of substances other than those prescribed or required for medical reasons: No Advance Directives: No Advance Directives Information Provided: No Physical Exam 2 Vital Signs: Vital Signs: Last Vital Signs Temp 97.9 F 06/22/23 23:01 Pulse 63 06/22/23 23:01 Resp 16 06/22/23 23:01 BP 121/84 06/22/23 23:01 Pulse Ox 97 06/22/23 23:01 O2 Del Method Room Air 06/22/23 23:01 BMI result Body Mass Index 28.6 Const: Other: The patient is awake and alert. He does not seem in obvious distress. HEENT: Other: Face is symmetrical. Mucous membranes moist. Eyes: Other: Pupils are round equal, conjunctivae are clear Neck: Other: No JVD Resp: Effort & Inspection: normal respiratory effort Auscultation: clear to auscultation bilaterally Cardio: Rate: regular rate Rhythm: regular rhythm Heart sounds: S1 normal heart sound present and S2 normal heart sound present GI: Other: Abdomen is soft and nontender Skin: Other: Skin is dry and unremarkable Neuro: Other: The patient is awake and alert. Face is symmetrical. Speech is clear. He moves his extremities normally. He is grossly neurologically intact. Extrem: Other: No peripheral edema, no calf swelling or tenderness Psych: Other: The patient seems to have excessively ruminate on his physical complaints. He seems to have very little insight into the fact that he has had multiple tests multiple hospitals and still ?has no answers for his somatic symptoms Course Course Course Narrative: This is a Rapid Medical Examination (RME) in triage, full HPI, ROS, assessment and plan per primary provider in the Main ED. 53 yo male with history of afib on Xarelto presents to the ER for evaluation of hot flashes and sharp left sided chest pain that started 2 hours ago. Pain radiates to the back and bilateral shoulders, +SOB, +palpitations. Endorses depression and alcohol abuse - last drink 3-4 hours ago, 6 nips per day. Plan: EKG, trop, labs, CXR Medical Decision Making Medical Decision Making [facility] Narrative: The patient is a 53-year-old male who was on metoprolol and rivaroxaban because of an episode of atrial fibrillation who has had multiple visits at this hospital and at other hospitals for a variety of symptoms that seem to have followed an episode of atrial fibrillation a couple of years ago. Clinically the patient looks entirely well. His EKG is normal. His labs are unremarkable. The patient admits to increased alcohol use because he feels depressed about his symptoms and the inability of anybody to explain his symptoms. When I asked him if he was suicidal he said ?well I wouldn't tell you if I was. ? I advised the patient that I thought that physically he was quite well and that I recommended that he reduce his alcohol intake and increase his exercise instead. Lab Data 06/22/23 20:37 06/22/23 20:37 Labs: Lab Results 06/22/23 Range/Units 20:37 WBC 8.1 (4.8-10.8) X10*3/uL RBC 4.63 (4.60-5.80) X10*6/uL Hgb 14.5 (14.0-18.0) g/dl Hct 42.0 (42.0-52.0) % MCV 90.7 (80.0-98.0) fL MCH 31.3 (27.0-33.0) pg MCHC 34.5 (31.0-36.0) g/dl RDW 12.6 (11.0-16.0) % Plt Count 329 (160-400) X10*3/uL MPV 8.6 L (9.4-12.4) fL Immature Gran % (Auto) 0.4 (0.0-0.4) % Neut % (Auto) 63.5 (45-73) % Lymph % (Auto) 26.0 (20-40) % [place] % (Auto) 8.5 (2-11) % Eos % (Auto) 1.1 (0-4) % Baso % (Auto) 0.5 (0-2) % Lymph # (Auto) 2.1 (1.2-4.9) X10*3/uL [place] # (Auto) 0.7 (0.1-1.2) X10*3/uL Eos # (Auto) 0.1 (0.0-0.4) X10*3/uL Baso # (Auto) 0.0 (0.0-0.2) X10*3/uL Abs Immat Gran (auto) 0.03 (0.00-0.03) X10*3/uL Absolute Neuts (auto) 5.2 (2.0-8.3) x10*3/uL Absolute Nucleated RBC 0.000 (0.0-0.012) X10*3/uL Nucleated RBC % (auto) 0.0 (0.0-0.2) /100WBC Sodium 138 (135-145) mmol/L Potassium 4.4 (3.3-5.1) mmol/L Chloride 105 (96-108) mmol/L Carbon Dioxide 24 (22-29) mmol/L Anion Gap 13 (12-20) BUN 22 H (9-16) mg/dL Creatinine 1.02 (0.5-1.4) mg/dL Estim Creat Clear Calc 97.5 Estimated GFR > 60 Random Glucose 98 (60-115) mg/dL Calcium 8.9 (8.4-10.2) mg/dL Magnesium 2.2 (1.6-2.6) mg/dL Total Bilirubin 0.5 (0.0-1.0) mg/dL Direct Bilirubin 0.1 (0.0-0.5) mg/dL AST 22 (5-37) U/L ALT 20 (0-40) U/L Alkaline Phosphatase 72 (39-117) U/L Troponin I High Sens < 2.7 (<3.5-35.0) ng/L B-Natriuretic Peptide < 10 (<100) pg/mL Total Protein 7.0 (6.5-8.0) g/dL Albumin 4.1 (3.5-5.0) g/dL Lipase 17 (8-78) U/L TSH 1.67 (0.32-4.0) uIU/mL Urine Color Yellow Urine Appearance Clear Urine pH 6.5 (5.0-9.0) Ur Specific [place] 1.020 (1.005-1.025) Urine Protein Negative (Neg-Trace) mg/dL Urine Glucose (UA) Negative (Negative) mg/dL Urine Ketones Negative (Negative) mg/dL Urine Blood Negative (Negative) Urine Nitrite Negative (Negative) Ur Leukocyte Esterase Negative (Negative) Urine Opiates Screen Not Detected (Not Detect) Urine Fentanyl Screen Not Detected (Not Detect) Ur Barbiturates Screen Not Detected (Not Detect) Ur Phencyclidine Scrn Not Detected (Not Detect) Ur Amphetamines Screen Not Detected (Not Detect) U Benzodiazepines Scrn POSITIVE H (Not Detect) Urine Cocaine Screen Not Detected (Not Detect) U Marijuana (THC) Screen Not Detected (Not Detect) Discharge Plan Discharge Clinical Impression: Hot flashes Patient Disposition: Home, Self-Care Additional Instructions: Your testing in the emergency room today is very reassuring. I recommend that you start getting more exercise. Please try not to drink in the mornings. I would recommend going for a bicycle ride or other form of morning exercise instead of drinking in the mornings. Please follow up soon with your regular doctor. Prescriptions: No Action oxycodone 5 mg tablet 5 mg PO Q6H PRN (Reason: pain) Qty: 12 0RF Rx Instructions: Partial Fill upon patient request. dexamethasone 4 mg tablet 4 mg PO BID Qty: 6 0RF Referrals: Zohreh Zuñiga [Other] Interventions: ED Discharge Assessment Last Done: 06/22/23 23:01 Discharge Date/Time: 06/22/23 23:02 Print Language: Jamaican
--- NOTE | 2023-06-22 20:20 | MHC.EDTECH ---
EKG taken per order and signed by provider
--- NOTE | 2023-06-22 20:41 | MHC.EDTECH ---
Patient brought into triage area,labs,and urine obtained and sent to lab.
[2023-06-22 20:46] LABS: MANUAL DIFF FLAG NO
[2023-06-22 20:48] LABS: Basophils Percent Auto 0.5 % (0-2); Eosinophils Absolute Auto 0.1 X10*3/uL (0.0-0.4); Eosinophils Percent Auto 1.1 % (0-4); Hemoglobin 14.5 g/dl (14.0-18.0); Imm Gran Abs Auto 0.03 X10*3/uL (0.00-0.03); Imm Gran Pct Auto 0.4 % (0.0-0.4); Lymphocytes Absolute Auto 2.1 X10*3/uL (1.2-4.9); Mean Corpuscular HGB Conc 34.5 g/dl (31.0-36.0); Mean Corpuscular Hemoglobin 31.3 pg (27.0-33.0); Mean Corpuscular Volume 90.7 fL (80.0-98.0); Mean Platelet Volume 8.6 fL (9.4-12.4); Monocytes Absolute Auto 0.7 X10*3/uL (0.1-1.2); Monocytes Percent Auto 8.5 % (2-11); Neutrophils Absolute Auto 5.2 x10*3/uL (2.0-8.3); Neutrophils Percent Auto 63.5 % (45-73); Platelet Count 329 X10*3/uL (160-400); Red Blood Count 4.63 X10*6/uL (4.60-5.80); Red Cell Distribution Width 12.6 % (11.0-16.0); White Blood Count 8.1 X10*3/uL (4.8-10.8)
[2023-06-22 20:49] LABS: Appearance Urine Clear; Color Urine Yellow; Glucose Urine UA Negative (Negative); Leukocyte Esterase Urine Negative (Negative); Nitrite Urine Negative (Negative); PH 6.5 (5.0-9.0); Urine Blood Negative (Negative); Urine Ketones Negative (Negative); Urine Protein Negative (Neg-Trace)
[2023-06-22 20:56] LABS: Amphetamine Screen Urine Not Detected (Not Detect); Barbiturates, Urine Not Detected (Not Detect); Benzodiazepines Screen Urine POSITIVE (Not Detect); Cannabinoid Screen Urine Not Detected (Not Detect); Cocaine Screen Urine Not Detected (Not Detect); Fentanyl, urine Not Detected (Not Detect); Opiate Screen Urine Not Detected (Not Detect); Phencyclidine Screen Urine Not Detected (Not Detect)
[2023-06-22 21:09] LABS: B Type Natriuretic Peptide < 10 pg/mL (<100)
[2023-06-22 21:16] LABS: Alanine Aminotransferase 20 U/L (0-40); Albumin Level 4.1 g/dL (3.5-5.0); Alkaline Phosphatase 72 U/L (39-117); Anion Gap 13 (12-20); Aspartate Amino Transferase 22 U/L (5-37); Bilirubin Direct 0.1 mg/dL (0.0-0.5); Bilirubin Total 0.5 mg/dL (0.0-1.0); Blood Urea Nitrogen 22 mg/dL (9-16); Calcium 8.9 mg/dL (8.4-10.2); Carbon Dioxide 24 mmol/L (22-29); Chloride 105 mmol/L (96-108); Creatinine Clr Calc Pharmacy 97.5; Estimated Glomerular Filt Rate > 60; Glucose Random 98 mg/dL (60-115); Lipase 17 U/L (8-78); Magnesium 2.2 mg/dL (1.6-2.6); Potassium 4.4 mmol/L (3.3-5.1); Sodium 138 mmol/L (135-145)
[2023-06-22 21:26] LABS: Troponin-I High Sensitivity < 2.7 ng/L (<3.5-35.0)
[2023-06-22 21:38] LABS: TSH reflex Free T4 1.67 uIU/mL (0.32-4.0)
[2023-06-22 21:49] VITALS: BP 119/83; PULSE 61; RESP 16; TEMP 36.7; O2SAT 97
--- NOTE | 2023-06-22 21:54 | MHC.EDTECH ---
THIS PCT JUST ASSUMED CARE OF PATIENT ,VITALS TAKEN ,PT WAS HOOKED UP TO MANAGER CABLE ,PATIENT WAS CHANGE INTO HOSPITAL ATTIRE ,CALL [facility] WITHIN PT REACH .
[2023-06-22 23:01] VITALS: BP 121/84; PULSE 63; RESP 16; TEMP 36.6; O2SAT 97
== END 2023-06-22 23:02 | disposition home or self-care (01) ==
PROVIDERS: Physician Assistant; Emergency Provider Emergency Medicine; PCP Family Medicine
DX: R07.89 Other chest pain (principal); R23.2 Flushing; F41.9 Anxiety disorder, unspecified; R06.02 Shortness of breath; Z79.899 Other long term (current) drug therapy
CPT/HCPCS: 36415; 71046; 80048; 80076; 80307; 81003; 83690; 83735; 83880; 84443; 84484; 85025; 93005; 99284; 99285

== ENCOUNTER → 2023-06-22 20:12 | Outpatient (BNV) | payer MEDICAID, SELFPAY | PROVIDERS: Emergency Provider Emergency Medicine; Visit Provider Internal Medicine Cardiovascular Disease | DX: R07.9 Chest pain, unspecified (principal) | CPT/HCPCS: 93010 ==

== ENCOUNTER 2023-11-22 12:39 | Inpatient (IN) | payer MEDICAID, OTHER, SELFPAY ==
--- NOTE | 2023-11-22 | ECG_ITS ---
Test Reason : CHEST PAIN Blood Pressure : / mmHG Vent. Rate : 055 BPM Atrial Rate : 055 BPM P-R Int : 144 ms QRS Dur : 096 ms QT Int : 454 ms P-R-T Axes : 054 019 047 degrees QTc Int : 434 ms Sinus bradycardia Otherwise normal ECG When compared with ECG of 22-JUN-2023 20:12, No significant change was found Referred By: Generic ED Physician Electronically Signed By:DANIELLE MELO
--- NOTE | ~2023-11-22 | XR_ITS ---
EXAMINATION: XR CHEST CLINICAL INFORMATION: Chest pain. Dyspnea. COMPARISON: Chest x-ray June 22, 2023 TECHNIQUE: 2 views of the chest were obtained. FINDINGS: No significant abnormality is noted involving the heart, lungs, mediastinum, bony thorax or soft tissues. XR/XR chest 2V IMPRESSION: Unremarkable examination. Electronically signed by: Patricio Vieira MD 11/22/2023 03:12 PM EDT RP
--- NOTE | 2023-11-22 12:47 | ED_ITS ---
HPI - General Adult General Chief complaint: Chest Pain Stated complaint: L CP,TIGHTNESS,RAD LT TO RT,LLE TINGLING PER EMS Time Seen by Provider: 11/22/23 12:46 History of Present Illness ED Provider: Soren KLINE narrative: The patient is a 53-year-old male who says that he was diagnosed with a pulmonary embolism at [facility] a few months ago. He says that he is on apixaban and metoprolol. He says that a couple of months ago he had an urge to do cocaine and he did cocaine as crack cocaine for about a month and a half. He said that he did this in part because he was feeling depressed because he is going to lose his apartment. He says that using the cocaine made him forget about his troubles. He last used crack cocaine 2 days ago on Monday. Comes to the emergency room stating that he developed left-sided chest pain this morning at 06:00 that he describes a sharp and worse with taking a deep breath. The patient says that he recently used prescribed lorazepam up too fast because he was feeling anxious while using cocaine. The patient reports a history of psychiatric hospitalizations for depression. He says he has not done anything recently to harm himself intentionally. Related Data Home Medications ?Medication ?Instructions ?Recorded ?Confirmed apixaban 5 mg tablet (Eliquis) 5 mg PO BID 11/22/23 11/22/23 buprenorphine 8 mg-naloxone 2 mg 1 film sublingual BID@0700,1500 11/22/23 11/22/23 sublingual film (Suboxone) hydroxyzine pamoate 50 mg capsule 50 mg PO DAILY PRN Anxiety 11/22/23 11/22/23 lorazepam 1 mg tablet 1 mg PO DAILY PRN Anxiety 11/22/23 11/22/23 melatonin 10 mg tablet 10 mg PO BEDTIME PRN Sleep 11/22/23 11/22/23 metoprolol tartrate 25 mg tablet 12.5 mg PO BID 11/22/23 11/22/23 Allergies Allergy/AdvReac Type Severity Reaction Status Date / Time No Known Allergies Allergy Verified 11/22/23 12:55 Review of Systems 2 Review of Systems: Yes all other systems are reviewed and are negative PMFSH Social History Social History Alcohol intake: current Alcohol intake frequency: a few times a week Alcohol type: hard liquor Smoked in Last 30 Days: Yes Use of substances other than those prescribed or required for medical reasons: Yes Substance Use Type: Crack/Cocaine Substance Use Frequency: Recent Binge Last Used Substance: Days (ago) Advance Directives: No Do you have a plan to hurt others: No Plan Physical Exam ED Vital Signs: Vital Signs - 24 hr 11/22/23 12:49 11/22/23 15:55 11/22/23 18:49 Temperature 98.0 F 97.9 F 97.1 F Pulse Rate 60 56 61 Respiratory Rate 15 18 18 Blood Pressure 116/79 115/82 143/94 H Pulse Oximetry 97 95 98 Oxygen Delivery Method Room Air Room Air Room Air 11/22/23 20:41 Temperature 99.1 F Pulse Rate 63 Respiratory Rate 20 Blood Pressure 118/80 Pulse Oximetry 97 Oxygen Delivery Method Room Air BMI result Body Mass Index 24.4 Const Other: The patient is awake and alert. He has a very anxious demeanor. HENMT Other: Face is symmetrical. Mucous membranes moist. Face and sinus: Yes normal facial exam Mouth: Normal oral and palatal mucosa present and oropharynx normal Eyes General: appearance normal, both eyes and all related structures Conjunctivae: conjunctivae normal Sclerae: sclerae normal Pupils: Equal, round and reactive pupils present EOM: EOMs intact bilaterally Neck Neck: Yes no JVD Resp Effort & Inspection: normal respiratory effort Auscultation: clear to auscultation bilaterally Cardio Rate: regular rate Rhythm: regular rhythm Heart sounds: S1 normal heart sound present and S2 normal heart sound present GI Other: Abdomen is soft and nontender Skin Other: No calf swelling or tenderness Neuro Other: The patient is awake and alert. He has an anxious and depressed demeanor but an otherwise normal mental status. Cranial nerves are intact. He has normal strength and sensation in all of his extremities. He seems to have normal coordination. He is neurologically intact. Cranial nerves: Yes Equal, round and reactive pupils present Extrem Other: No calf swelling or tenderness, no asymmetry, no edema. Medications Administered Generic Name Dose Route Start Last Admin Trade Name Freq PRN Reason Stop Dose Admin Apixaban 5 mg 11/22/23 21:00 11/22/23 20:35 Apixaban 5 Mg Tablet PO 5 mg BID FRANCES Administration Lorazepam 1 mg 11/22/23 19:44 11/22/23 20:35 Lorazepam 1 Mg Tablet PO 1 mg DAILY PRN Administration Anxiety Melatonin 9 mg 11/22/23 19:45 11/22/23 20:35 Melatonin 3 Mg Tablet PO 9 mg BEDTIME PRN Administration Sleep Metoprolol Tartrate 12.5 mg 11/22/23 21:00 11/22/23 20:36 Metoprolol Tartrate 12.5 Mg Halftab PO 12.5 mg BID FRANCES Administration Protocol Discontinued Medications Generic Name Dose Route Start Last Admin Trade Name Sharad PRN Reason Stop Dose Admin Lorazepam 1 mg 11/22/23 13:52 11/22/23 14:12 Lorazepam 1 Mg Tablet PO 11/22/23 13:53 1 mg ONCE ONE Administration Medical Decision Making Medical Decision Making [facility] Narrative: The patient is a 53-year-old male who arrives by ambulance complaining of chest pain and shortness of breath. He also complains of a recent binge use of crack cocaine. He also complains of feeling very depressed and hopeless. The patient told me that a couple of months ago he has been diagnosed with a pulmonary embolism at [facility]. I obtained a record from [facility] from September 02 2023. This references a diagnosis of a pneumonia on CT scan but no diagnosis of pulmonary embolism. On multiple previous emergency room visits the patient has been extremely concerned about the possibility of a DVT or PE, often expressing his concerns with great perseveration. He has had multiple negative workups for DVT and pulmonary embolism. Clinically the patient's testing today is unremarkable. His D-dimer is normal. Chest x-ray is normal. Troponin is undetectable. BNP is normal. D-dimer is undetectable. Ultimately the patient is medical workup was negative. He was also expressing a lot of hopelessness and I asked for a care team consult. They are recommending psychiatric hospitalization and asked me to sign a section 12. The patient will therefore be placed in physician observation for psychiatric bed search. Lab Data 11/22/23 13:11 11/22/23 13:11 Labs: Lab Results 11/22/23 11/22/23 11/22/23 Range/Units 13:11 13:33 13:37 WBC 7.0 (4.8-10.8) X10*3/uL RBC 4.73 (4.60-5.80) X10*6/uL Hgb 15.3 (14.0-18.0) g/dl Hct 43.8 (42.0-52.0) % MCV 92.6 (80.0-98.0) fL MCH 32.3 (27.0-33.0) pg MCHC 34.9 (31.0-36.0) g/dl RDW 11.9 (11.0-16.0) % Plt Count 299 (160-400) X10*3/uL MPV 9.1 L (9.4-12.4) fL Immature Gran % (Auto) 0.3 (0.0-0.4) % Neut % (Auto) 84.0 H (45-73) % Lymph % (Auto) 10.1 L (20-40) % [place] % (Auto) 4.9 (2-11) % Eos % (Auto) 0.4 (0-4) % Baso % (Auto) 0.3 (0-2) % Lymph # (Auto) 0.7 L (1.2-4.9) X10*3/uL [place] # (Auto) 0.3 (0.1-1.2) X10*3/uL Eos # (Auto) 0.0 (0.0-0.4) X10*3/uL Baso # (Auto) 0.0 (0.0-0.2) X10*3/uL Abs Immat Gran (auto) 0.02 (0.00-0.03) X10*3/uL Absolute Neuts (auto) 5.9 (2.0-8.3) x10*3/uL Absolute Nucleated RBC 0.000 (0.0-0.012) X10*3/uL Nucleated RBC % (auto) 0.0 (0.0-0.2) /100WBC PT 14.6 H D (11.1-13.3) SEC INR 1.2 H (0.9-1.1) D-Dimer High Sensitivty < 150 NG/ML VBG pH 7.42 (7.32-7.43) VBG pCO2 33 mmHg VBG pO2 114 mmHg VBG HCO3 22 (22-26) mmol/L VBG O2 Saturation 100.0 % VBG Base Excess -1.2 mmol/L Sodium 138 (135-145) mmol/L Potassium 4.2 (3.3-5.1) mmol/L Chloride 105 (96-108) mmol/L Carbon Dioxide 24 (22-29) mmol/L Anion Gap 13 (12-20) BUN 12 (9-16) mg/dL Creatinine 0.86 (0.5-1.4) mg/dL Estim Creat Clear Calc 109.0 Estimated GFR > 60 Random Glucose 112 (60-115) mg/dL Calcium 9.2 (8.4-10.2) mg/dL Magnesium 2.0 (1.6-2.6) mg/dL Total Bilirubin 0.4 (0.0-1.0) mg/dL AST 38 H (5-37) U/L ALT 57 H (0-40) U/L Alkaline Phosphatase 59 (39-117) U/L Troponin I High Sens < 2.7 (<3.5-35.0) ng/L B-Natriuretic Peptide 61 (<100) pg/mL Total Protein 6.5 (6.5-8.0) g/dL Albumin 3.9 (3.5-5.0) g/dL Urine Color Urine Appearance Urine pH (5.0-9.0) Ur Specific [place] (1.005-1.025) Urine Protein (Neg-Trace) mg/dL Urine Glucose (UA) (Negative) mg/dL Urine Ketones (Negative) mg/dL Urine Blood (Negative) Urine Nitrite (Negative) Ur Leukocyte Esterase (Negative) Urine Opiates Screen (Not Detect) Ur Buprenorphine Scrn (Not Detect) ng/mL Ur Oxycodone Screen (Not Detect) ng/mL Urine Methadone Screen (Not Detect) ng/mL Urine Fentanyl Screen (Not Detect) Ur Barbiturates Screen (Not Detect) Ur Phencyclidine Scrn (Not Detect) Ur Amphetamines Screen (Not Detect) U Benzodiazepines Scrn (Not Detect) Urine Cocaine Screen (Not Detect) U Marijuana (THC) Screen (Not Detect) Ethyl Alcohol < 10 mg/dL Influenza Type A (PCR) NEGATIVE (Negative) Influenza Type B (PCR) NEGATIVE (Negative) RSV RNA Qual (PCR) NEGATIVE (Negative) SARS-CoV-2 RNA (RT-PCR) NEGATIVE (Negative) 11/22/23 Range/Units 16:32 WBC (4.8-10.8) X10*3/uL RBC (4.60-5.80) X10*6/uL Hgb (14.0-18.0) g/dl Hct (42.0-52.0) % MCV (80.0-98.0) fL MCH (27.0-33.0) pg MCHC (31.0-36.0) g/dl RDW (11.0-16.0) % Plt Count (160-400) X10*3/uL MPV (9.4-12.4) fL Immature Gran % (Auto) (0.0-0.4) % Neut % (Auto) (45-73) % Lymph % (Auto) (20-40) % [place] % (Auto) (2-11) % Eos % (Auto) (0-4) % Baso % (Auto) (0-2) % Lymph # (Auto) (1.2-4.9) X10*3/uL [place] # (Auto) (0.1-1.2) X10*3/uL Eos # (Auto) (0.0-0.4) X10*3/uL Baso # (Auto) (0.0-0.2) X10*3/uL Abs Immat Gran (auto) (0.00-0.03) X10*3/uL Absolute Neuts (auto) (2.0-8.3) x10*3/uL Absolute Nucleated RBC (0.0-0.012) X10*3/uL Nucleated RBC % (auto) (0.0-0.2) /100WBC PT (11.1-13.3) SEC INR (0.9-1.1) D-Dimer High Sensitivty NG/ML VBG pH (7.32-7.43) VBG pCO2 mmHg VBG pO2 mmHg VBG HCO3 (22-26) mmol/L VBG O2 Saturation % VBG Base Excess mmol/L Sodium (135-145) mmol/L Potassium (3.3-5.1) mmol/L Chloride (96-108) mmol/L Carbon Dioxide (22-29) mmol/L Anion Gap (12-20) BUN (9-16) mg/dL Creatinine (0.5-1.4) mg/dL Estim Creat Clear Calc Estimated GFR Random Glucose (60-115) mg/dL Calcium (8.4-10.2) mg/dL Magnesium (1.6-2.6) mg/dL Total Bilirubin (0.0-1.0) mg/dL AST (5-37) U/L ALT (0-40) U/L Alkaline Phosphatase (39-117) U/L Troponin I High Sens (<3.5-35.0) ng/L B-Natriuretic Peptide (<100) pg/mL Total Protein (6.5-8.0) g/dL Albumin (3.5-5.0) g/dL Urine Color Yellow Urine Appearance Clear Urine pH 5.5 (5.0-9.0) Ur Specific [place] 1.015 (1.005-1.025) Urine Protein Negative (Neg-Trace) mg/dL Urine Glucose (UA) Negative (Negative) mg/dL Urine Ketones 80 (Negative) mg/dL Urine Blood Negative (Negative) Urine Nitrite Negative (Negative) Ur Leukocyte Esterase Negative (Negative) Urine Opiates Screen Not Detected (Not Detect) Ur Buprenorphine Scrn Positive H (Not Detect) ng/mL Ur Oxycodone Screen Not Detected (Not Detect) ng/mL Urine Methadone Screen Not Detected (Not Detect) ng/mL Urine Fentanyl Screen Not Detected (Not Detect) Ur Barbiturates Screen Not Detected (Not Detect) Ur Phencyclidine Scrn Not Detected (Not Detect) Ur Amphetamines Screen Not Detected (Not Detect) U Benzodiazepines Scrn POSITIVE H (Not Detect) Urine Cocaine Screen POSITIVE H (Not Detect) U Marijuana (THC) Screen Not Detected (Not Detect) Ethyl Alcohol mg/dL Influenza Type A (PCR) (Negative) Influenza Type B (PCR) (Negative) RSV RNA Qual (PCR) (Negative) SARS-CoV-2 RNA (RT-PCR) (Negative) Independent Interpretation I performed an independent interpretation of an: EKG Interpretation: EKG at 13:00 shows sinus bradycardia at 55 beats per minute. Otherwise normal EKG. No change from previous. Discharge Plan Discharge Clinical Impression: Depression, Chest pain, Substance use disorder Patient Disposition: Still a Patient Prescriptions: No Action lorazepam 1 mg tablet 1 mg PO DAILY PRN (Reason: Anxiety) metoprolol tartrate 25 mg tablet 12.5 mg PO BID buprenorphine-naloxone [Suboxone] 8-2 mg film 1 film sublingual BID@0700,1500 Eliquis 5 mg tablet 5 mg PO BID hydroxyzine pamoate 50 mg capsule 50 mg PO DAILY PRN (Reason: Anxiety) melatonin 10 mg Tablet 10 mg PO BEDTIME PRN (Reason: Sleep) Print Language: Bulgarian
[2023-11-22 12:49] VITALS: BP 116/79; PULSE 60; PULSE 63; RESP 15; TEMP 36.7; O2SAT 95; O2SAT 97; BMI 24.4
[2023-11-22 13:15] LABS: MANUAL DIFF FLAG NO
[2023-11-22 13:17] LABS: Basophils Percent Auto 0.3 % (0-2); Eosinophils Percent Auto 0.4 % (0-4); Hematocrit 43.8 % (42.0-52.0); Hemoglobin 15.3 g/dl (14.0-18.0); Imm Gran Abs Auto 0.02 X10*3/uL (0.00-0.03); Imm Gran Pct Auto 0.3 % (0.0-0.4); Lymphocytes Absolute Auto 0.7 X10*3/uL (1.2-4.9); Lymphocytes Percent Auto 10.1 % (20-40); Mean Corpuscular HGB Conc 34.9 g/dl (31.0-36.0); Mean Corpuscular Hemoglobin 32.3 pg (27.0-33.0); Mean Corpuscular Volume 92.6 fL (80.0-98.0); Mean Platelet Volume 9.1 fL (9.4-12.4); Monocytes Absolute Auto 0.3 X10*3/uL (0.1-1.2); Monocytes Percent Auto 4.9 % (2-11); Neutrophils Absolute Auto 5.9 x10*3/uL (2.0-8.3); Platelet Count 299 X10*3/uL (160-400); Red Blood Count 4.73 X10*6/uL (4.60-5.80); Red Cell Distribution Width 11.9 % (11.0-16.0)
[2023-11-22 13:25] LABS: INTERNATIONAL NORM RATIO 1.2 (0.9-1.1); Prothrombin Time 14.6 SEC (11.1-13.3)
[2023-11-22 13:32] LABS: Alanine Aminotransferase 57 U/L (0-40); Albumin Level 3.9 g/dL (3.5-5.0); Alkaline Phosphatase 59 U/L (39-117); Anion Gap 13 (12-20); Aspartate Amino Transferase 38 U/L (5-37); Bilirubin Total 0.4 mg/dL (0.0-1.0); Blood Urea Nitrogen 12 mg/dL (9-16); Calcium 9.2 mg/dL (8.4-10.2); Carbon Dioxide 24 mmol/L (22-29); Chloride 105 mmol/L (96-108); Estimated Glomerular Filt Rate > 60; Glucose Random 112 mg/dL (60-115); Potassium 4.2 mmol/L (3.3-5.1); Sodium 138 mmol/L (135-145); Total Protein 6.5 g/dL (6.5-8.0)
[2023-11-22 13:39] LABS: Ethanol < 10 mg/dL; Troponin-I High Sensitivity < 2.7 ng/L (<3.5-35.0)
[2023-11-22 13:41] LABS: Venous Blood Gas Refer to POC result
[2023-11-22 13:41] LABS: VBG Base Excess -1.2 mmol/L; VBG HCO3 22 mmol/L (22-26); VBG pCO2 33 mmHg; VBG pH 7.42 (7.32-7.43); VBG pO2 114 mmHg
[2023-11-22 13:57] LABS: B Type Natriuretic Peptide 61 pg/mL (<100)
[2023-11-22 14:12] LABS: D Dimer High Sensitivity < 150 NG/ML
[2023-11-22] MEDS: LORazepam 1 MG TABLET PO ×2 (14:12→20:35)
[2023-11-22 14:20] LABS: Influenza A PCR NEGATIVE (Negative); Influenza B PCR NEGATIVE (Negative); Resp Syncy Virus RNA Qual PCR NEGATIVE (Negative); SARS COV2 PCR INHOUSE NEGATIVE (Negative)
[2023-11-22 15:55] VITALS: BP 115/82; PULSE 56; RESP 18; TEMP 36.6; O2SAT 95
[2023-11-22 16:40] LABS: Appearance Urine Clear; Color Urine Yellow; Glucose Urine UA Negative (Negative); Leukocyte Esterase Urine Negative (Negative); Nitrite Urine Negative (Negative); PH 5.5 (5.0-9.0); Specific Gravity - Urine 1.015 (1.005-1.025); Urine Blood Negative (Negative); Urine Ketones 80 mg/dL (Negative); Urine Protein Negative (Neg-Trace)
[2023-11-22 16:52] LABS: Amphetamine Screen Urine Not Detected (Not Detect); Barbiturates, Urine Not Detected (Not Detect); Benzodiazepines Screen Urine POSITIVE (Not Detect); Buprenorphine Scr Positive (Not Detect); Cannabinoid Screen Urine Not Detected (Not Detect); Cocaine Screen Urine POSITIVE (Not Detect); Fentanyl, urine Not Detected (Not Detect); Methadone Screen, Urine Not Detected (Not Detect); Opiate Screen Urine Not Detected (Not Detect); Oxycodone Screen Urine Not Detected (Not Detect); Phencyclidine Screen Urine Not Detected (Not Detect)
--- NOTE | 2023-11-22 17:31 | PC.NURSE ---
report received from previous RN, patient brought back to unit of ED with cc of some mental health concerns, patient states he has had a lot going on recently and has recently started using cocaine again, and then he uses his PRN benzos to help him sleep, stating he went through a 28 day prescription in about a week and has recently been getting diazepam from friends, patient states he recently started having some health issues which have caused him a lot of anxiety and stressors, states he lost his job and is going to be losing his apartment by the end of the month, stating he had to have his daughters live with friends until he figures out his living situation and this has all caused him great stress and depression, states he doesnt know what to do anymore, patient denies suicidal ideation to this RN moved to [facility] without incident, belongings placed in locker. care team consulted.
--- NOTE | 2023-11-22 18:05 | PC.NURSE ---
pharmacy called to complete med rec
--- NOTE | 2023-11-22 18:33 | PC.NURSE ---
patient provided with dinner tray
[2023-11-22 18:49] VITALS: BP 143/94; PULSE 61; RESP 18; TEMP 36.2; O2SAT 98
--- NOTE | 2023-11-22 19:17 | PHA.MEDREC ---
Pharmacy Consult ? Medication Reconciliation Pharmacy has completed the medication reconciliation. Spoke to patient and confirmed medication list. Patient said he takes suboxone @0700 and 1500 and he takes HALF of a metoprolol twice a day. He takes hydroxyzine pamoate once a day prn anxiety. His last dose of eliquis, suboxone and metoprolol was this morning.
[2023-11-22] MEDS: Apixaban 5 MG TABLET PO (20:35)
[2023-11-22] MEDS: Melatonin 3 MG TABLET 9 MG PO (20:35)
[2023-11-22] MEDS: Metoprolol Tartrate 12.5 MG HALFTAB PO (20:36)
[2023-11-22 20:41] VITALS: BP 118/80; PULSE 63; RESP 20; TEMP 37.3; O2SAT 97
--- NOTE | 2023-11-22 21:06 | PC.NURSE ---
Assumed care of pt at 1900. PT a/o, appearing to be anxious. PT ambulating to patient with a steady gait. Requested medications and explained that med rec needed to be done. day shift rn requested pharmacy to complete d/t various concerns. Pharmacy completed med rec, orders placed, PRN and night medication administered- pt endorsing anxiety. No pain and no other complaints at this time. Plan of care ongoing
[2023-11-23 02:19] VITALS: BP 118/80; PULSE 51; RESP 16; TEMP 36.1; O2SAT 97
[2023-11-23] MEDS: Buprenorphine/Naloxone 8/2 mg FILM 1 FILM SUBLINGUAL ×2 (07:43→15:21)
--- NOTE | 2023-11-23 07:45 | PC.NURSE ---
Assumed care of patient at 0645, patient appears to be in no apparent distress this am, offering no complaints to this RN. Continue plan of care for inpatient bedsearch
[2023-11-23] MEDS: Metoprolol Tartrate 12.5 MG HALFTAB PO ×2 (08:40→20:13)
[2023-11-23] MEDS: Apixaban 5 MG TABLET PO ×2 (08:40→20:14)
[2023-11-23 08:52] VITALS: BP 116/85; PULSE 68; RESP 20; TEMP 36.9; O2SAT 96
[2023-11-23] MEDS: hydrOXYzine HCL 50 MG TABLET PO (11:53)
--- NOTE | 2023-11-23 16:29 | P.HPPS_ITS ---
HPI Chief Complaint: SI Diagnostics Vital Signs (24Hr): Vital Signs - 24 hr 11/22/23 18:49 11/22/23 20:41 11/23/23 02:19 Temperature 97.1 F 99.1 F 96.9 F Pulse Rate 61 63 51 Respiratory Rate 18 20 16 Blood Pressure 143/94 H 118/80 118/80 Pulse Oximetry 98 97 97 Oxygen Delivery Method Room Air Room Air Room Air 11/23/23 08:52 Temperature 98.5 F Pulse Rate 68 Respiratory Rate 20 Blood Pressure 116/85 Pulse Oximetry 96 Oxygen Delivery Method Room Air BMI result Body Mass Index 24.4 Labs 11/22/23 13:11 11/22/23 13:11 Labs: Laboratory Results - last 48 hr 11/22/23 11/22/23 11/22/23 13:11 13:33 13:37 WBC 7.0 RBC 4.73 Hgb 15.3 Hct 43.8 MCV 92.6 MCH 32.3 MCHC 34.9 RDW 11.9 Plt Count 299 MPV 9.1 L Immature Gran % (Auto) 0.3 Neut % (Auto) 84.0 H Lymph % (Auto) 10.1 L [place] % (Auto) 4.9 Eos % (Auto) 0.4 Baso % (Auto) 0.3 Lymph # (Auto) 0.7 L [place] # (Auto) 0.3 Eos # (Auto) 0.0 Baso # (Auto) 0.0 Abs Immat Gran (auto) 0.02 Absolute Neuts (auto) 5.9 Absolute Nucleated RBC 0.000 Nucleated RBC % (auto) 0.0 PT 14.6 H D INR 1.2 H D-Dimer High Sensitivty < 150 VBG pH 7.42 VBG pCO2 33 VBG pO2 114 VBG HCO3 22 VBG O2 Saturation 100.0 VBG Base Excess -1.2 Sodium 138 Potassium 4.2 Chloride 105 Carbon Dioxide 24 Anion Gap 13 BUN 12 Creatinine 0.86 Estim Creat Clear Calc 109.0 Estimated GFR > 60 Random Glucose 112 Calcium 9.2 Magnesium 2.0 Total Bilirubin 0.4 AST 38 H ALT 57 H Alkaline Phosphatase 59 Troponin I High Sens < 2.7 B-Natriuretic Peptide 61 Total Protein 6.5 Albumin 3.9 Urine Color Urine Appearance Urine pH Ur Specific [place] Urine Protein Urine Glucose (UA) Urine Ketones Urine Blood Urine Nitrite Ur Leukocyte Esterase Urine Opiates Screen Ur Buprenorphine Scrn Ur Oxycodone Screen Urine Methadone Screen Urine Fentanyl Screen Ur Barbiturates Screen Ur Phencyclidine Scrn Ur Amphetamines Screen U Benzodiazepines Scrn Urine Cocaine Screen U Marijuana (THC) Screen Ethyl Alcohol < 10 Influenza Type A (PCR) NEGATIVE Influenza Type B (PCR) NEGATIVE RSV RNA Qual (PCR) NEGATIVE SARS-CoV-2 RNA (RT-PCR) NEGATIVE 11/22/23 16:32 WBC RBC Hgb Hct MCV MCH MCHC RDW Plt Count MPV Immature Gran % (Auto) Neut % (Auto) Lymph % (Auto) [place] % (Auto) Eos % (Auto) Baso % (Auto) Lymph # (Auto) [place] # (Auto) Eos # (Auto) Baso # (Auto) Abs Immat Gran (auto) Absolute Neuts (auto) Absolute Nucleated RBC Nucleated RBC % (auto) PT INR D-Dimer High Sensitivty VBG pH VBG pCO2 VBG pO2 VBG HCO3 VBG O2 Saturation VBG Base Excess Sodium Potassium Chloride Carbon Dioxide Anion Gap BUN Creatinine Estim Creat Clear Calc Estimated GFR Random Glucose Calcium Magnesium Total Bilirubin AST ALT Alkaline Phosphatase Troponin I High Sens B-Natriuretic Peptide Total Protein Albumin Urine Color Yellow Urine Appearance Clear Urine pH 5.5 Ur Specific [place] 1.015 Urine Protein Negative Urine Glucose (UA) Negative Urine Ketones 80 Urine Blood Negative Urine Nitrite Negative Ur Leukocyte Esterase Negative Urine Opiates Screen Not Detected Ur Buprenorphine Scrn Positive H Ur Oxycodone Screen Not Detected Urine Methadone Screen Not Detected Urine Fentanyl Screen Not Detected Ur Barbiturates Screen Not Detected Ur Phencyclidine Scrn Not Detected Ur Amphetamines Screen Not Detected U Benzodiazepines Scrn POSITIVE H Urine Cocaine Screen POSITIVE H U Marijuana (THC) Screen Not Detected Ethyl Alcohol Influenza Type A (PCR) Influenza Type B (PCR) RSV RNA Qual (PCR) SARS-CoV-2 RNA (RT-PCR) Imaging Radiology Impressions: ITS Impressions Chest X-Ray 11/22/23 13:03 IMPRESSION: Unremarkable examination. Electronically signed by: Patricio Vieira MD 11/22/2023 03:12 PM EDT Meds/Allergies Meds Home Medications ?Medication ?Instructions ?Recorded ?Confirmed ?Type apixaban 5 mg tablet (Eliquis) 5 mg PO BID 11/22/23 11/22/23 History buprenorphine 8 mg-naloxone 2 mg 1 film sublingual BID@0700,1500 11/22/23 11/22/23 History sublingual film (Suboxone) hydroxyzine pamoate 50 mg capsule 50 mg PO DAILY PRN Anxiety 11/22/23 11/22/23 History lorazepam 1 mg tablet 1 mg PO DAILY PRN Anxiety 11/22/23 11/22/23 History melatonin 10 mg tablet 10 mg PO BEDTIME PRN Sleep 11/22/23 11/22/23 History metoprolol tartrate 25 mg tablet 12.5 mg PO BID 11/22/23 11/22/23 History Allergies Allergies Allergy/AdvReac Type Severity Reaction Status Date / Time No Known Allergies Allergy Verified 11/22/23 12:55 Assessment & Plan Statement Statement: I have reviewed the history and physical and performed a pertinent examination on my patient. No changes have occurred unless specified. If the History and Physical was not performed prior to admission, the Hospitalist's service will be consulted for completing the admission physical. Time Spent With Patient Time: Total time managing care of this patient today ____ minutes.
--- NOTE | 2023-11-23 16:29 | PM.PSYDC ---
DS: Providers Provider Date of admission: 11/23/23 13:48 Primary care physician: Unknown Physician DS: Medications Discharge Medications Home Medications: Home Medications ?Medication ?Instructions ?Recorded ?Confirmed apixaban 5 mg tablet (Eliquis) 5 mg PO BID 11/22/23 11/22/23 buprenorphine 8 mg-naloxone 2 mg 1 film sublingual BID@0700,1500 11/22/23 11/22/23 sublingual film (Suboxone) hydroxyzine pamoate 50 mg capsule 50 mg PO DAILY PRN Anxiety 11/22/23 11/22/23 lorazepam 1 mg tablet 1 mg PO DAILY PRN Anxiety 11/22/23 11/22/23 melatonin 10 mg tablet 10 mg PO BEDTIME PRN Sleep 11/22/23 11/22/23 metoprolol tartrate 25 mg tablet 12.5 mg PO BID 11/22/23 11/22/23 Data Data Completed and Pending Completed studies during hospitalization [Text1]: 11/22/23 11/22/23 11/22/23 13:11 13:33 13:37 WBC 7.0 RBC 4.73 Hgb 15.3 Hct 43.8 MCV 92.6 MCH 32.3 MCHC 34.9 RDW 11.9 Plt Count 299 MPV 9.1 L Immature Gran % (Auto) 0.3 Neut % (Auto) 84.0 H Lymph % (Auto) 10.1 L [place] % (Auto) 4.9 Eos % (Auto) 0.4 Baso % (Auto) 0.3 Lymph # (Auto) 0.7 L [place] # (Auto) 0.3 Eos # (Auto) 0.0 Baso # (Auto) 0.0 Abs Immat Gran (auto) 0.02 Absolute Neuts (auto) 5.9 Absolute Nucleated RBC 0.000 Nucleated RBC % (auto) 0.0 PT 14.6 H D INR 1.2 H D-Dimer High Sensitivty < 150 VBG pH 7.42 VBG pCO2 33 VBG pO2 114 VBG HCO3 22 VBG O2 Saturation 100.0 VBG Base Excess -1.2 Sodium 138 Potassium 4.2 Chloride 105 Carbon Dioxide 24 Anion Gap 13 BUN 12 Creatinine 0.86 Estim Creat Clear Calc 109.0 Estimated GFR > 60 Random Glucose 112 Calcium 9.2 Magnesium 2.0 Total Bilirubin 0.4 AST 38 H ALT 57 H Alkaline Phosphatase 59 Troponin I High Sens < 2.7 B-Natriuretic Peptide 61 Total Protein 6.5 Albumin 3.9 Urine Color Urine Appearance Urine pH Ur Specific [place] Urine Protein Urine Glucose (UA) Urine Ketones Urine Blood Urine Nitrite Ur Leukocyte Esterase Urine Opiates Screen Ur Buprenorphine Scrn Ur Oxycodone Screen Urine Methadone Screen Urine Fentanyl Screen Ur Barbiturates Screen Ur Phencyclidine Scrn Ur Amphetamines Screen U Benzodiazepines Scrn Urine Cocaine Screen U Marijuana (THC) Screen Ethyl Alcohol < 10 Influenza Type A (PCR) NEGATIVE Influenza Type B (PCR) NEGATIVE RSV RNA Qual (PCR) NEGATIVE SARS-CoV-2 RNA (RT-PCR) NEGATIVE 11/22/23 16:32 WBC RBC Hgb Hct MCV MCH MCHC RDW Plt Count MPV Immature Gran % (Auto) Neut % (Auto) Lymph % (Auto) [place] % (Auto) Eos % (Auto) Baso % (Auto) Lymph # (Auto) [place] # (Auto) Eos # (Auto) Baso # (Auto) Abs Immat Gran (auto) Absolute Neuts (auto) Absolute Nucleated RBC Nucleated RBC % (auto) PT INR D-Dimer High Sensitivty VBG pH VBG pCO2 VBG pO2 VBG HCO3 VBG O2 Saturation VBG Base Excess Sodium Potassium Chloride Carbon Dioxide Anion Gap BUN Creatinine Estim Creat Clear Calc Estimated GFR Random Glucose Calcium Magnesium Total Bilirubin AST ALT Alkaline Phosphatase Troponin I High Sens B-Natriuretic Peptide Total Protein Albumin Urine Color Yellow Urine Appearance Clear Urine pH 5.5 Ur Specific [place] 1.015 Urine Protein Negative Urine Glucose (UA) Negative Urine Ketones 80 Urine Blood Negative Urine Nitrite Negative Ur Leukocyte Esterase Negative Urine Opiates Screen Not Detected Ur Buprenorphine Scrn Positive H Ur Oxycodone Screen Not Detected Urine Methadone Screen Not Detected Urine Fentanyl Screen Not Detected Ur Barbiturates Screen Not Detected Ur Phencyclidine Scrn Not Detected Ur Amphetamines Screen Not Detected U Benzodiazepines Scrn POSITIVE H Urine Cocaine Screen POSITIVE H U Marijuana (THC) Screen Not Detected Ethyl Alcohol Influenza Type A (PCR) Influenza Type B (PCR) RSV RNA Qual (PCR) SARS-CoV-2 RNA (RT-PCR) Imaging Diagnostic Imaging Impressions Chest X-Ray 11/22/23 13:03 IMPRESSION: Unremarkable examination. Electronically signed by: Patricio Vieira MD 11/22/2023 03:12 PM EDT DS: Summary Time Spent with Patient Time attestation: Total time managing care of this patient today ____ minutes. Discharge Plan Discharge Anticipated Discharge Date/Time: 11/23/23 16:21 Patient Disposition: Home, Self-Care Discharge Diagnosis: adjustment disorder polysubstance use disorder Referrals: Physician,Unknown J [Primary Care Provider] - 1 Week Discharge Medications: Continued lorazepam 1 mg tablet 1 mg PO DAILY PRN (Reason: Anxiety) metoprolol tartrate 25 mg tablet 12.5 mg PO BID buprenorphine-naloxone [Suboxone] 8-2 mg film 1 film sublingual BID@0700,1500 Eliquis 5 mg tablet 5 mg PO BID hydroxyzine pamoate 50 mg capsule 50 mg PO DAILY PRN (Reason: Anxiety) melatonin 10 mg Tablet 10 mg PO BEDTIME PRN (Reason: Sleep) Discharge Orders: Discharge Order (Routine); Ordered 11/23/23 Ordered By: Bry Jauregui Diet: Advance to usual diet Activity on Discharge: As tolerated Stand Alone Forms: Patient Portal Discharge page, Community Support Print Language: Thai Care Plan Goals: remain safe, stable, and sober in the outpatient treatment setting Health Concerns: various medical undiagnosed Plan of Treatment: take medications as prescribed, attend appointments as scheduled Assessment: not at imminent risk of harm to self or others
[2023-11-23 16:47] VITALS: BP 122/87; PULSE 69; RESP 18; TEMP 36.5; O2SAT 97
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
[2023-11-23 20:00] VITALS: BP 127/84; PULSE 70; RESP 18; TEMP 36.2; O2SAT 97
[2023-11-23] MEDS: Melatonin 3 MG TABLET 9 MG PO (20:14)
[2023-11-23] MEDS: LORazepam 1 MG TABLET PO (20:14)
[2023-11-24] MEDS: Buprenorphine/Naloxone 8/2 mg FILM 1 FILM SUBLINGUAL ×2 (06:28→14:50)
[2023-11-24 07:39] VITALS: BP 112/73; PULSE 48; RESP 12; TEMP 36.4; O2SAT 97
[2023-11-24 08:15] LABS: Estimated Average Glucose 105 mg/dL; Hemoglobin A1c % 5.3 % (<6.0)
[2023-11-24 08:30] VITALS: PULSE 64; RESP 16; O2SAT 97
[2023-11-24 08:32] LABS: Cholesterol 164 mg/dL (<200); HDL Cholesterol 33 mg/dL (>40); LDL Cholesterol Calculated 112 mg/dL (<100); Triglycerides 95 mg/dL (<150)
[2023-11-24] MEDS: Metoprolol Tartrate 12.5 MG HALFTAB PO ×2 (08:32→20:15)
[2023-11-24] MEDS: Apixaban 5 MG TABLET PO ×2 (08:32→20:15)
[2023-11-24 08:42] LABS: Free T4 (Free Thyroxine) 1.08 ng/dL (0.71-1.85); Thyroid Stimulating Hormone 1.42 uIU/mL (0.32-4.0)
[2023-11-24 08:55] LABS: Folate 5.9 ng/mL (> or = 4.0); Vitamin B12 402 pg/mL (200-900)
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
[2023-11-24] MEDS: hydrOXYzine HCL 50 MG TABLET PO (10:56)
--- NOTE | 2023-11-24 15:39 | PC.NURSE ---
Pt was administered a MOCA on 11/24/2023 and scored a 21/30 indicative of mild cognitive impairment. Pt's provider Dr. Bry Jauregui was notified.
[2023-11-24 19:45] VITALS: BP 122/84; PULSE 72; RESP 18; TEMP 36.2; O2SAT 96
[2023-11-24] MEDS: LORazepam 1 MG TABLET PO (20:15)
[2023-11-24] MEDS: Melatonin 3 MG TABLET 9 MG PO (20:15)
[2023-11-24] MEDS: Acetaminophen 325 MG TABLET 650 MG PO (20:21)
[2023-11-25] MEDS: Buprenorphine/Naloxone 8/2 mg FILM 1 FILM SUBLINGUAL ×2 (06:49→15:06)
[2023-11-25 07:40] VITALS: BP 114/81; PULSE 61; RESP 14; TEMP 36.4; O2SAT 96
[2023-11-25] MEDS: Metoprolol Tartrate 12.5 MG HALFTAB PO ×2 (08:59→20:09)
[2023-11-25] MEDS: Apixaban 5 MG TABLET PO ×2 (08:59→20:09)
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
[2023-11-25] MEDS: hydrOXYzine HCL 25 MG TABLET PO (13:07)
[2023-11-25 20:05] VITALS: BP 141/85; PULSE 60; RESP 16; TEMP 36.3; O2SAT 99
[2023-11-25] MEDS: Melatonin 3 MG TABLET 9 MG PO (20:09)
[2023-11-25] MEDS: LORazepam 1 MG TABLET PO (20:09)
[2023-11-26] MEDS: Buprenorphine/Naloxone 8/2 mg FILM 1 FILM SUBLINGUAL ×2 (07:11→15:28)
[2023-11-26 08:20] VITALS: BP 125/81; PULSE 60; RESP 16; TEMP 36.3; O2SAT 97
[2023-11-26] MEDS: Metoprolol Tartrate 12.5 MG HALFTAB PO ×2 (08:28→20:10)
[2023-11-26] MEDS: Apixaban 5 MG TABLET PO ×2 (08:28→20:12)
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
[2023-11-26] MEDS: hydrOXYzine HCL 50 MG TABLET PO (12:10)
[2023-11-26 12:35] LABS: Alanine Aminotransferase 64 U/L (0-40); Albumin Level 4.4 g/dL (3.5-5.0); Alkaline Phosphatase 65 U/L (39-117); Aspartate Amino Transferase 33 U/L (5-37); Bilirubin Direct 0.1 mg/dL (0.0-0.5); Bilirubin Total 0.6 mg/dL (0.0-1.0); Lipase 22 U/L (8-78); Total Protein 7.3 g/dL (6.5-8.0)
[2023-11-26 19:58] VITALS: BP 136/88; PULSE 72; RESP 16; TEMP 36.2; O2SAT 98
[2023-11-26] MEDS: LORazepam 1 MG TABLET PO (20:10)
[2023-11-26] MEDS: Melatonin 3 MG TABLET 9 MG PO (20:11)
[2023-11-26] MEDS: hydrOXYzine HCL 25 MG TABLET PO (20:12)
[2023-11-27] MEDS: Buprenorphine/Naloxone 8/2 mg FILM 1 FILM SUBLINGUAL ×2 (06:50→15:27)
[2023-11-27 07:36] VITALS: BP 112/67; PULSE 57; RESP 16; TEMP 36.4; O2SAT 96
[2023-11-27 08:05] VITALS: PULSE 60
[2023-11-27] MEDS: Metoprolol Tartrate 12.5 MG HALFTAB PO ×2 (08:09→20:49)
[2023-11-27] MEDS: Apixaban 5 MG TABLET PO ×2 (08:09→20:50)
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
[2023-11-27 20:38] VITALS: BP 129/82; PULSE 63; RESP 16; TEMP 36.3; O2SAT 95
[2023-11-27] MEDS: Melatonin 3 MG TABLET 9 MG PO (20:49)
[2023-11-27] MEDS: LORazepam 1 MG TABLET PO (20:50)
[2023-11-28] MEDS: Buprenorphine/Naloxone 8/2 mg FILM 1 FILM SUBLINGUAL (06:43)
[2023-11-28 07:49] VITALS: BP 114/72; PULSE 61; RESP 16; TEMP 36.8; O2SAT 96
[2023-11-28] MEDS: Apixaban 5 MG TABLET PO (08:05)
[2023-11-28] MEDS: Metoprolol Tartrate 12.5 MG HALFTAB PO (08:05)
== END 2023-11-28 11:02 | disposition home or self-care (01) | DRG 756 ==
LOC: HO.ED 17:11 → HO.PADLT16 11-23 13:51
PROVIDERS: Social Worker; Admitting Provider Psychiatry & Neurology Psychiatry; Emergency Provider Emergency Medicine; Visit Provider Psychiatry & Neurology Psychiatry
DX: F41.9 Anxiety disorder, unspecified (principal); R45.851 Suicidal ideations; S06.9X9S Unspecified intracranial injury with loss of consciousness of unspecified duration, sequela; F11.20 Opioid dependence, uncomplicated; F14.10 Cocaine abuse, uncomplicated; Z20.822 Contact with and (suspected) exposure to COVID-19; Z86.718 Personal history of other venous thrombosis and embolism; Z87.891 Personal history of nicotine dependence; Z79.01 Long term (current) use of anticoagulants; Z79.899 Other long term (current) drug therapy; V49.9XXS Car occupant (driver) (passenger) injured in unspecified traffic accident, sequela
CPT/HCPCS: 0241U; 36415; 71046; 80053; 80061; 80076; 80307; 81003; 82607; 82746; 82803; 83036; 83690; 83735; 83880; 84439; 84443; 84484; 85025; 85379; 85610; 93005; 99285; S9485

== ENCOUNTER → 2023-11-23 13:48 | Outpatient (BNV) | payer OTHER, SELFPAY | PROVIDERS: Admitting Provider Psychiatry & Neurology Psychiatry; Emergency Provider Emergency Medicine; Visit Provider Psychiatry & Neurology Psychiatry | DX: F14.10 Cocaine abuse, uncomplicated (principal); F11.90 Opioid use, unspecified, uncomplicated; F41.9 Anxiety disorder, unspecified; S09.90XD Unspecified injury of head, subsequent encounter | CPT/HCPCS: 90792; 99231; 99239 ==

== ENCOUNTER 2023-12-09 05:28 | Inpatient (IN) | payer MEDICAID, OTHER, SELFPAY ==
[2023-12-09 05:38] VITALS: BP 127/78; BP 128/70; PULSE 57; PULSE 72; RESP 16; TEMP 37; O2SAT 98; BMI 27.1
--- NOTE | 2023-12-09 07:05 | PC.NURSE ---
Assumed care of patient at 0645. At this time the patient is lying quietly in their bed. No signs of distress observed. Breathing is even and unlabored.
--- NOTE | 2023-12-09 07:14 | ED_ITS ---
HPI - Psych General Chief Complaint: Psychiatric Symptoms Stated Complaint: ANXIETY, THOUGHTS OF SELF HARM Time Seen by Provider: 12/09/23 06:31 Source: patient and EMS Mode of arrival: EMS Limitations: no limitations History of Present Illness HPI Narrative: Patient is a 53-year-old male who presents emergency department via EMS for evaluation. He reports that he has been experiencing increasing anxiety and dep ression, with suicidal ideations though not offering any specific plan. He reports that he was recently admitted to the hospital and ?I think I left too early I had to pack all my stuff up because I am getting evicted for my apartment in 2 days?. He expresses a lot of depression surrounding his pending homeless state and his general health. Related Data Home Medications ?Medication ?Instructions ?Recorded ?Confirmed apixaban 5 mg tablet (Eliquis) 5 mg PO BID 11/22/23 12/09/23 buprenorphine 8 mg-naloxone 2 mg 1 film sublingual BID@0700,1500 11/22/23 12/09/23 sublingual film (Suboxone) hydroxyzine pamoate 50 mg capsule 50 mg PO DAILY PRN Anxiety 11/22/23 12/09/23 lorazepam 1 mg tablet 1 mg PO DAILY PRN Anxiety 11/22/23 12/09/23 melatonin 10 mg tablet 10 mg PO BEDTIME PRN Sleep 11/22/23 12/09/23 metoprolol tartrate 25 mg tablet 12.5 mg PO BID 11/22/23 12/09/23 Allergies Allergy/AdvReac Type Severity Reaction Status Date / Time No Known Allergies Allergy Verified 12/09/23 05:42 Review of Systems Review of Systems: Yes all other systems are reviewed and are negative [facility] Past Medical History Attestation statement: The following information was validated with the patient. Source: old records reviewed Social History Social History Household Members: Family Housing: Apartment Do you presently have visiting nurse or other home services: No Alcohol intake: current Alcohol intake frequency: a few times a week Alcohol type: hard liquor Patient Tobacco Use Status: Former Tobacco user Substance Use Type: Crack/Cocaine and Marijuana Do you have a plan to hurt others: No Plan service: No Sexual orientation: Straight/Heterosexual Physical Exam Vital Signs: Vital Signs: Last Vital Signs Temp 98.6 F 12/09/23 05:38 Pulse 57 12/09/23 05:38 Resp 16 12/09/23 05:38 BP 127/78 12/09/23 05:38 Pulse Ox 98 12/09/23 05:38 O2 Del Method Room Air 12/09/23 05:38 BMI result Body Mass Index 27.1 Appearance: Alert.?Oriented to person, place and time. No acute distress.?Normal affect. Eyes: Pupils equal, round and reactive to light.? ENT: Pharynx normal.?? Neck: Normal inspection.? Neck supple.?? CVS: Heart sounds normal. Normal heart rate and rhythm.? Pulses normal.?? Respiratory: No respiratory distress.? Lung sounds clear to auscultation bilaterally?? Abdomen: Soft and non-tender. Normoactive bowel sounds. Skin: Skin warm and dry.? Normal skin color.? Extremities: No lower extremity edema.? No calf ttp? Neuro: Moves all extremities spontaneously. Sensation intact bilaterally. CN II- XII intact. No focal neuro deficits. Ambulates with normal steady gait. Medical Decision Making Medical Decision Making MDM Narrative: Patient is a 53-year-old male with past medical history of polysubstance use disorder, anxiety, depression, head trauma, reportedly had an episode of atrial fibrillation a couple of years ago resulted in whom remaining on metoprolol and Eliquis who presents emergency department with reports of increased depression and suicidal ideations, without specific plan. Of note he was recently admitted for inpatient psychiatry 11/23/2023-11/27/2023; plan for seeking out residential substance use treatment on his own due to opioid use cocaine usage. Will obtain serum labs for medical clearance and refer to care team for further evaluation and safe disposition. Differential Diagnosis Differential Diagnoses: The differential diagnosis associated with the p resentation includes (See narrative above and below for further detail) Admission/Observation Consideration of admission/observation: Escalation of care including admission/observation considered Patient is being observed in the Emergency Department for depression and anxiety. Observation time was started at 07:26 on 12/09/2023.?The patient is currently stable and non-toxic appearing. Observation is being initiated in the Emergency Department to allow time to help differentiate if the patient's depression and anxiety is due to Substance Induced Mood Disorder and Anxiety versus Major Depressive Disorder, Bipolar Akila, Bipolar Depression, and Schizophrenia. The patient will receive frequent psychiatric assessments from the provider as well as from nursing staff. The patient will also be monitored for the need of PRN agitation medications such as Haldol, Ativan, and Benadryl. Lab Data MDM Lab Attestation statement: I reviewed the patient's lab results. Independent Historian Clinical information obtained from an independent historian. History obtained from or confirmed by: EMS External Record Review External record reviewed: Inpatient record and Outpatient record Social Determinants Patient?s care significantly limited by Social Determinants of Health including: Inadequate housing and Alcoholism and drug addiction in family Discharge Plan Discharge Clinical Impression: Suicidal ideation, Depression Patient Disposition: Still a Patient Prescriptions: No Action lorazepam 1 mg tablet 1 mg PO DAILY PRN (Reason: Anxiety) metoprolol tartrate 25 mg tablet 12.5 mg PO BID buprenorphine-naloxone [Suboxone] 8-2 mg film 1 film sublingual BID@0700,1500 Eliquis 5 mg tablet 5 mg PO BID hydroxyzine pamoate 50 mg capsule 50 mg PO DAILY PRN (Reason: Anxiety) melatonin 10 mg Tablet 10 mg PO BEDTIME PRN (Reason: Sleep) Print Language: Chilean
[2023-12-09 07:27] LABS: MANUAL DIFF FLAG NO
[2023-12-09 07:29] LABS: Basophils Percent Auto 0.5 % (0-2); Eosinophils Absolute Auto 0.1 X10*3/uL (0.0-0.4); Eosinophils Percent Auto 2.1 % (0-4); Hematocrit 46.2 % (42.0-52.0); Hemoglobin 15.5 g/dl (14.0-18.0); Imm Gran Abs Auto 0.02 X10*3/uL (0.00-0.03); Imm Gran Pct Auto 0.3 % (0.0-0.4); Lymphocytes Absolute Auto 1.6 X10*3/uL (1.2-4.9); Lymphocytes Percent Auto 25.9 % (20-40); Mean Corpuscular HGB Conc 33.5 g/dl (31.0-36.0); Mean Corpuscular Hemoglobin 31.9 pg (27.0-33.0); Mean Corpuscular Volume 95.1 fL (80.0-98.0); Mean Platelet Volume 9.3 fL (9.4-12.4); Monocytes Absolute Auto 0.5 X10*3/uL (0.1-1.2); Monocytes Percent Auto 8.5 % (2-11); Neutrophils Percent Auto 62.7 % (45-73); Platelet Count 316 X10*3/uL (160-400); Red Blood Count 4.86 X10*6/uL (4.60-5.80); Red Cell Distribution Width 12.2 % (11.0-16.0); White Blood Count 6.3 X10*3/uL (4.8-10.8)
[2023-12-09 07:41] LABS: Amphetamine Screen Urine Not Detected (Not Detect); Barbiturates, Urine Not Detected (Not Detect); Benzodiazepines Screen Urine Not Detected (Not Detect); Buprenorphine Scr Positive (Not Detect); Cannabinoid Screen Urine Not Detected (Not Detect); Cocaine Screen Urine POSITIVE (Not Detect); Fentanyl, urine Not Detected (Not Detect); Methadone Screen, Urine Not Detected (Not Detect); Opiate Screen Urine Not Detected (Not Detect); Oxycodone Screen Urine Not Detected (Not Detect); Phencyclidine Screen Urine Not Detected (Not Detect)
[2023-12-09 07:42] LABS: Anion Gap 10 (12-20); Blood Urea Nitrogen 9 mg/dL (9-16); Calcium 9.5 mg/dL (8.4-10.2); Carbon Dioxide 27 mmol/L (22-29); Chloride 108 mmol/L (96-108); Creatinine Clr Calc Pharmacy 98.7; Estimated Glomerular Filt Rate > 60; Ethanol < 10 mg/dL; Glucose Random 100 mg/dL (60-115); Potassium 5.4 mmol/L (3.3-5.1); Sodium 140 mmol/L (135-145)
[2023-12-09] MEDS: Buprenorphine/Naloxone 8/2 mg FILM 1 FILM SUBLINGUAL ×2 (10:15→15:20)
[2023-12-09] MEDS: LORazepam 1 MG TABLET PO (10:15)
[2023-12-09] MEDS: Sodium Zirconium Cyclosilicate 10 GM POWD.PACK PO (13:34)
--- NOTE | 2023-12-09 15:11 | MHC.CARE ---
Patient assessed by CARE team, appears appropriate for inpatient dual tx at this time. Is agreeable to admission.
[2023-12-09 15:32] VITALS: BP 126/88; PULSE 58; RESP 16; TEMP 36.7; O2SAT 94
[2023-12-09] MEDS: Melatonin 3 MG TABLET 9 MG PO (20:20)
[2023-12-09] MEDS: Apixaban 5 MG TABLET PO (20:20)
[2023-12-09 20:22] VITALS: BP 140/103; PULSE 54; RESP 16; TEMP 36.7; O2SAT 95
[2023-12-10 06:00] VITALS: BP 134/102; PULSE 57; RESP 16; TEMP 36.3; O2SAT 97
--- NOTE | 2023-12-10 07:02 | PC.NURSE ---
Assumed care of patient at 0645. At this time the patient is observed resting quietly in bed. No signs of distress observed. Breathing is even and unlabored.
[2023-12-10] MEDS: Buprenorphine/Naloxone 8/2 mg FILM 1 FILM SUBLINGUAL ×2 (07:26→15:08)
[2023-12-10 08:23] VITALS: BP 110/80; PULSE 63; RESP 18; TEMP 36.6; O2SAT 95
[2023-12-10] MEDS: Apixaban 5 MG TABLET PO ×2 (08:41→21:03)
[2023-12-10] MEDS: LORazepam 1 MG TABLET PO (08:41)
--- NOTE | 2023-12-10 14:58 | PHA.MEDREC ---
Pharmacy Consult ? Medication Reconciliation Pharmacy has completed the medication reconciliation. Used claims history, previous discharge papers, and previous med rec note to complete med rec. Patient told nurse he takes famotidine prn.
[2023-12-10] MEDS: polyethylene glycoL 3350 17 GM POWD.PACK PO (17:12)
[2023-12-10 17:48] VITALS: BP 133/94; PULSE 60; RESP 12; TEMP 36.3; O2SAT 96
[2023-12-10 20:53] VITALS: BP 142/95; PULSE 64; RESP 16; TEMP 36.7; O2SAT 95
[2023-12-10] MEDS: Melatonin 3 MG TABLET 9 MG PO (21:03)
--- NOTE | 2023-12-11 | ECG_ITS ---
Test Reason : RULE OUT QTC Blood Pressure : / mmHG Vent. Rate : 062 BPM Atrial Rate : 062 BPM P-R Int : 158 ms QRS Dur : 094 ms QT Int : 424 ms P-R-T Axes : 057 010 044 degrees QTc Int : 430 ms Normal sinus rhythm Normal ECG When compared with ECG of 22-NOV-2023 13:00, No significant change was found Referred By: Bola Huerta Electronically Signed By:DANIELLE MELO
[2023-12-11 06:36] VITALS: BP 140/90; PULSE 64; RESP 16; O2SAT 100
[2023-12-11] MEDS: Buprenorphine/Naloxone 8/2 mg FILM 1 FILM SUBLINGUAL ×2 (07:04→15:29)
--- NOTE | 2023-12-11 07:16 | PC.NURSE ---
Assumed care of patient at 0645, patient appears to be in no apparent distress this am, calm and cooperative, alert and oriented x4, patient reports mild headache at this time. Aware of plan of care for inpatient bedsearch
[2023-12-11] MEDS: Metoprolol Tartrate 12.5 MG HALFTAB PO ×2 (08:22→21:08)
[2023-12-11] MEDS: Apixaban 5 MG TABLET PO ×2 (08:22→21:08)
[2023-12-11] MEDS: LORazepam 1 MG TABLET PO (08:26)
--- NOTE | 2023-12-11 10:59 | PC.NURSE ---
pt attempted to give urine sample, unable to at this time, will attempt later, fluids provided
[2023-12-11] MEDS: Sodium Zirconium Cyclosilicate 10 GM POWD.PACK PO (11:58)
[2023-12-11 12:28] LABS: Potassium 4.7 mmol/L (3.3-5.1)
[2023-12-11 15:00] VITALS: BP 120/86; PULSE 75; TEMP 36.4; O2SAT 97
[2023-12-11 16:24] VITALS: BMI 26.6
--- NOTE | 2023-12-11 18:31 | PC.ADMIT ---
Addendum entered by Jaz Granado RN 12/11/23 18:54: Mr. Lynch reports that he was doing well financially, supporting himself and his children until about 1.5 years ago when he became sick with a variety of symptoms that include: intermittent mid-epigastric pain 10/10, heart palpitations and edematous ankles and has been unable to work since its onset. He said he had some savings but, It went fast paying the bills and rent, with no money coming in. He said he will be living out of his car when he discharges. Original Note: Mr. Lynch is a 53 year single old father of two admitted to , bed 512-1 from the POD at 2:35pm.Safety/ skin check completed and was unremarkable. He was admitted for depression and suicidal ideation. He was offered and signed a CV. Recent stressors include losing his current housing where he has historically lived with his two young adult children. Daughter currently in [place] doing border control with the [employer]. He has secured a room for his son with family friends. He is losing his current apartment tomorrow and will be homeless. Approximately 4+ months ago, the patient entered [facility] and has been clean of alcohol and nicotine since. More recently he relapsed on cocaine which has been his attempt to self medicate his depression as he became more and more hopeless. Belongings inventoried. Cooperative with admission process. Currently he admits to passive suicidality but feels safe on the unit and states he has no plan or intent to bring harm to himself while hospitalized. He denied influenza vaccine. I think I might have already gotten it. He does not nicotine replacement as he has been nicotine free x 4 months with no replacement therapy.
[2023-12-11 20:00] VITALS: BP 147/84; PULSE 65; RESP 16; TEMP 36.3; O2SAT 95
[2023-12-11] MEDS: Melatonin 3 MG TABLET 9 MG PO (21:08)
[2023-12-12] MEDS: Buprenorphine/Naloxone 8/2 mg FILM 1 FILM SUBLINGUAL ×2 (07:07→16:38)
[2023-12-12 08:00] VITALS: BP 134/89; PULSE 56; RESP 14; TEMP 36.4; O2SAT 97
[2023-12-12 08:16] LABS: Cholesterol 203 mg/dL (<200); HDL Cholesterol 37 mg/dL (>40); LDL Cholesterol Calculated 140 mg/dL (<100); Triglycerides 132 mg/dL (<150)
[2023-12-12] MEDS: LORazepam 1 MG TABLET PO (08:23)
[2023-12-12] MEDS: Apixaban 5 MG TABLET PO ×2 (08:23→20:56)
[2023-12-12 08:24] VITALS: PULSE 71
[2023-12-12] MEDS: Metoprolol Tartrate 12.5 MG HALFTAB PO ×2 (08:25→20:56)
[2023-12-12] MEDS: Magnesium Hydrox/Alum Hydrox 30 ML ORAL.SUSP PO (08:27)
[2023-12-12] MEDS: Acetaminophen 325 MG TABLET 650 MG PO (08:33)
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
[2023-12-12 19:54] LABS: Alanine Aminotransferase 30 U/L (0-40); Alkaline Phosphatase 52 U/L (39-117); Aspartate Amino Transferase 20 U/L (5-37); Bilirubin Direct 0.1 mg/dL (0.0-0.5); Bilirubin Total 0.6 mg/dL (0.0-1.0); Total Protein 6.6 g/dL (6.5-8.0)
[2023-12-12 20:00] VITALS: BP 119/72; PULSE 72; TEMP 36.4; O2SAT 97
[2023-12-12] MEDS: Melatonin 3 MG TABLET 9 MG PO (20:57)
[2023-12-13 07:58] VITALS: BP 131/87; PULSE 64; RESP 16; TEMP 36.3; O2SAT 97
[2023-12-13] MEDS: Apixaban 5 MG TABLET PO ×2 (07:58→21:17)
[2023-12-13] MEDS: Buprenorphine/Naloxone 8/2 mg FILM 1 FILM SUBLINGUAL ×2 (07:58→14:47)
[2023-12-13] MEDS: Metoprolol Tartrate 12.5 MG HALFTAB PO ×2 (07:58→21:16)
--- NOTE | 2023-12-13 10:05 | P.PNPSI_ITS ---
Subjective Subjective Date of Service: 12/13/23 Reason For Visit: depressed Subjective Notes: Conditional Voluntary Interim History: Pt slept through the night. He reports feeling better, future oriented looking to go get [employer] assistance and food stamps and then go to [facility] to [facility]. He does not want to be referred from here on the unit as he wants to get [employer] assistance first. He denies SI/HI. No antidepressant as pt reports reason for him not able to work or function if due to abdominal pain of unclear etiology which has been worked up by GI with no findings. He was observed watching TV, in no apparent distress. He is pleasant on approach. No behavioral concerns. Medication Compliance: Yes Review of Systems Review of Systems Yes all other systems are reviewed and are negative Mental Status Exam Mental Status Exam Narrative: Appearance: wearing hospital gown, fair hygiene, in NAD Behavior: cooperative Psychomotor: no agitation or retardation noted Speech: clear, normal rate/rhythm/volume, spontaneous TP: linear TC: worried about housing, medical issues Mood: depressed Affect: constricted SI: passive HI: none VH/AH: none Delusions: none Insight/judgment: fair x 2. Memory/cog: alert, oriented x4. grossly intact to conversational testing. Diagnostics Vital Signs (24Hr): Vital Signs - 24 hr 12/12/23 20:00 12/13/23 07:58 Temperature 97.5 F 97.3 F Pulse Rate 72 64 Respiratory Rate 16 Blood Pressure 119/72 131/87 Pulse Oximetry 97 97 Oxygen Delivery Method Room Air Room Air BMI result Body Mass Index 26.6 Labs 12/09/23 07:19 12/11/23 11:53 Labs: Laboratory Results - last 48 hr 12/11/23 12/12/23 12/12/23 11:53 07:52 07:57 Potassium 4.7 Total Bilirubin 0.6 Direct Bilirubin 0.1 AST 20 ALT 30 Alkaline Phosphatase 52 Total Protein 6.6 Albumin 4.0 Triglycerides 132 Cholesterol 203 H LDL Cholesterol, Calc 140 H HDL Cholesterol 37 L Medications Medications Current Medications Acetaminophen (Acetaminophen 325 Mg Tablet) 650 mg PO Q6H PRN PRN Reason: Headache/Pain Mild Scale (1-3) Last Admin: 12/12/23 08:33 Dose: 650 mg Al Hydroxide/Mg Hydroxide (Magnesium Hydrox/Alum Hydrox 30 Ml Oral.Susp) 30 ml PO Q6H PRN PRN Reason: Heartburn/Nausea Last Admin: 12/12/23 08:27 Dose: 30 ml Apixaban (Apixaban 5 Mg Tablet) 5 mg PO BID [facility] Last Admin: 12/13/23 07:58 Dose: 5 mg Buprenorphine/Naloxone (Buprenorphine/Naloxone 8/2 Mg Film) 1 film SUBLINGUAL BID@0700,1500 [facility] Last Admin: 12/13/23 07:58 Dose: 1 film Hydroxyzine HCl (Hydroxyzine Hcl 50 Mg Tablet) 50 mg PO DAILY PRN PRN Reason: Anxiety Hydroxyzine HCl (Hydroxyzine Hcl 25 Mg Tablet) 25 mg PO Q6H PRN PRN Reason: Anxiety Lorazepam (Lorazepam 1 Mg Tablet) 1 mg PO DAILY PRN PRN Reason: Anxiety Last Admin: 12/12/23 08:23 Dose: 1 mg Magnesium Hydroxide (Milk Of Magnesia 30 Ml Oral.Susp) 30 ml PO DAILY PRN PRN Reason: Constipation Melatonin (Melatonin 3 Mg Tablet) 9 mg PO BEDTIME PRN PRN Reason: Sleep Last Admin: 12/12/23 20:57 Dose: 9 mg Metoprolol Tartrate (Metoprolol Tartrate 12.5 Mg Halftab) 12.5 mg PO BID [facility]; Protocol Last Admin: 12/13/23 07:58 Dose: 12.5 mg Nicotine (Nicotine 21 Mg Patch.Td24) 21 mg TRANSDERMA DAILY PRN PRN Reason: smoking cessation Nicotine Polacrilex (Nicotine Polacrilex 2 Mg Gum) 4 mg BUCCAL Q2H PRN PRN Reason: Nicotine Cravings Olanzapine (Olanzapine 5 Mg Tablet) 5 mg PO TID PRN PRN Reason: agitation Polyethylene Glycol (Polyethylene Glycol 3350 17 Gm Powd.Pack) 17 gm PO DAILY [facility] Stop: 12/15/23 17:44 Last Admin: 12/13/23 08:12 Dose: Not Given Trazodone HCl (Trazodone Hcl 50 Mg Tablet) 50 mg PO BEDTIME MRX1 PRN PRN Reason: Insomnia Allergies Allergies Allergy/AdvReac Type Severity Reaction Status Date / Time No Known Allergies Allergy Verified 12/09/23 05:42 Assessment & Plan Assessment & Plan (1) MDD (major depressive disorder), recurrent episode, moderate: Status: Acute Code(s): F33.1 - Major depressive disorder, recurrent, moderate (2) Cocaine use disorder: Status: Acute Code(s): F14.10 - Cocaine abuse, uncomplicated (3) Opioid use disorder: Status: Acute Code(s): F11.90 - Opioid use, unspecified, uncomplicated Assessment and Plan: on Methadone, in remission Plan Mr. Lynch is 53 year-old male with hx of opioid use disorder in remission on MAT, cocaine use, depression who self presented to [facility] reporting increase depression, passive SI in setting of being evicted, using cocaine, lack of financial resources and abdominal pain intermittent for over one year that despite rule out of acute pathology is unclear its etiology. Utox positive for cocaine. He was recently discharged from after treatment for similar assessment. We discussed risks, benefits and alternative treatment options, he declines starting antidepressant stating that until abdominal pain not resolved he does not want to take more medications. PLAN 1. Admit to , CV, 15 minutes checks 2. continue current medications. refill of ativan has to come from outpatient provider given ongoing cocaine use and risks of abuse or misuse as he continues working on recovery. 3. aftercare planning. Reason for continued inpatient stay Substantial Risk for: inability to function Time Spent With Patient Time: Total time managing care of this patient today ____ minutes.
[2023-12-13] MEDS: Acetaminophen 325 MG TABLET 650 MG PO (18:44)
[2023-12-13 20:00] VITALS: BP 114/85; PULSE 63; RESP 16; TEMP 36.3; O2SAT 98
[2023-12-13] MEDS: Melatonin 3 MG TABLET 9 MG PO (21:16)
--- NOTE | 2023-12-14 | ECG_ITS ---
Test Reason : PALPITATIONS Blood Pressure : / mmHG Vent. Rate : 059 BPM Atrial Rate : 059 BPM P-R Int : 154 ms QRS Dur : 100 ms QT Int : 416 ms P-R-T Axes : 060 010 046 degrees QTc Int : 411 ms Sinus bradycardia Otherwise normal ECG When compared with ECG of 11-DEC-2023 07:27, No significant change was found Referred By: Molly Aguilar Electronically Signed By:DANIELLE MELO
[2023-12-14 07:00] VITALS: BMI 26.7
[2023-12-14 08:00] VITALS: BP 129/79; PULSE 66; RESP 18; TEMP 36.4; O2SAT 98
[2023-12-14] MEDS: polyethylene glycoL 3350 17 GM POWD.PACK PO (09:10)
[2023-12-14] MEDS: Buprenorphine/Naloxone 8/2 mg FILM 1 FILM SUBLINGUAL ×2 (09:10→14:40)
[2023-12-14] MEDS: Metoprolol Tartrate 12.5 MG HALFTAB PO ×2 (09:10→21:34)
[2023-12-14] MEDS: Apixaban 5 MG TABLET PO ×2 (09:10→21:35)
[2023-12-14] MEDS: hydrOXYzine HCL 25 MG TABLET PO (11:38)
[2023-12-14] MEDS: OLANZapine 5 MG TABLET PO (11:39)
--- NOTE | 2023-12-14 11:40 | P.PNPSI_ITS ---
Subjective Subjective Date of Service: 12/14/23 Reason For Visit: depressed Subjective Notes: Conditional Voluntary Interim History: Pt slept most of the night. He continues concern about abdominal pain, with palpitation and numbness/tingling on left side arm and left arm. He denies SI/HI. No VH/AH. he reports decrease appetite due to abdominal pain. Diagnostics Vital Signs (24Hr): Vital Signs - 24 hr 12/13/23 20:00 12/14/23 08:00 Temperature 97.4 F 97.6 F Pulse Rate 63 66 Respiratory Rate 16 18 Blood Pressure 114/85 129/79 Pulse Oximetry 98 98 Oxygen Delivery Method Room Air Room Air BMI result Body Mass Index 26.6 Labs 12/09/23 07:19 12/11/23 11:53 Labs: Laboratory Results - last 48 hr 12/12/23 07:57 Total Bilirubin 0.6 Direct Bilirubin 0.1 AST 20 ALT 30 Alkaline Phosphatase 52 Total Protein 6.6 Albumin 4.0 Medications Medications Current Medications Acetaminophen (Acetaminophen 325 Mg Tablet) 650 mg PO Q6H PRN PRN Reason: Headache/Pain Mild Scale (1-3) Last Admin: 12/13/23 18:44 Dose: 650 mg Al Hydroxide/Mg Hydroxide (Magnesium Hydrox/Alum Hydrox 30 Ml Oral.Susp) 30 ml PO Q6H PRN PRN Reason: Heartburn/Nausea Last Admin: 12/12/23 08:27 Dose: 30 ml Apixaban (Apixaban 5 Mg Tablet) 5 mg PO BID [facility] Last Admin: 12/14/23 09:10 Dose: 5 mg Buprenorphine/Naloxone (Buprenorphine/Naloxone 8/2 Mg Film) 1 film SUBLINGUAL BID@0700,1500 [facility] Last Admin: 12/14/23 09:10 Dose: 1 film Hydroxyzine HCl (Hydroxyzine Hcl 50 Mg Tablet) 50 mg PO DAILY PRN PRN Reason: Anxiety Hydroxyzine HCl (Hydroxyzine Hcl 25 Mg Tablet) 25 mg PO Q6H PRN PRN Reason: Anxiety Last Admin: 12/14/23 11:38 Dose: 25 mg Magnesium Hydroxide (Milk Of Magnesia 30 Ml Oral.Susp) 30 ml PO DAILY PRN PRN Reason: Constipation Melatonin (Melatonin 3 Mg Tablet) 9 mg PO BEDTIME PRN PRN Reason: Sleep Last Admin: 12/13/23 21:16 Dose: 9 mg Metoprolol Tartrate (Metoprolol Tartrate 12.5 Mg Halftab) 12.5 mg PO BID [facility]; Protocol Last Admin: 12/14/23 09:10 Dose: 12.5 mg Nicotine (Nicotine 21 Mg Patch.Td24) 21 mg TRANSDERMA DAILY PRN PRN Reason: smoking cessation Nicotine Polacrilex (Nicotine Polacrilex 2 Mg Gum) 4 mg BUCCAL Q2H PRN PRN Reason: Nicotine Cravings Olanzapine (Olanzapine 5 Mg Tablet) 5 mg PO TID PRN PRN Reason: agitation Last Admin: 12/14/23 11:39 Dose: 5 mg Polyethylene Glycol (Polyethylene Glycol 3350 17 Gm Powd.Pack) 17 gm PO DAILY [facility] Stop: 12/15/23 17:44 Last Admin: 12/14/23 09:10 Dose: 17 gm Trazodone HCl (Trazodone Hcl 50 Mg Tablet) 50 mg PO BEDTIME MRX1 PRN PRN Reason: Insomnia Allergies Allergies Allergy/AdvReac Type Severity Reaction Status Date / Time No Known Allergies Allergy Verified 12/09/23 05:42 Assessment & Plan Assessment & Plan (1) MDD (major depressive disorder), recurrent episode, moderate: Status: Acute Code(s): F33.1 - Major depressive disorder, recurrent, moderate (2) Cocaine use disorder: Status: Acute Code(s): F14.10 - Cocaine abuse, uncomplicated (3) Opioid use disorder: Status: Acute Code(s): F11.90 - Opioid use, unspecified, uncomplicated Assessment and Plan: on Methadone, in remission Plan Mr. Lynch is 53 year-old male with hx of opioid use disorder in remission on MAT, cocaine use, depression who self presented to [facility] reporting increase depression, passive SI in setting of being evicted, using cocaine, lack of financial resources and abdominal pain intermittent for over one year that despite rule out of acute pathology is unclear its etiology. Utox positive for cocaine. He was recently discharged from [facility] after treatment for similar assessment. We discussed risks, benefits and alternative treatment options, he declines starting antidepressant stating that until abdominal pain not resolved he does not want to take more medications. PLAN 1. Admit to [facility], CV, 15 minutes checks /3 continue tx. will check heavy metal levels. Reason for continued inpatient stay Substantial Risk for: inability to function Time Spent With Patient Time: Total time managing care of this patient today ____ minutes.
--- NOTE | 2023-12-14 18:43 | PC.NURSE ---
Pt mostly isolating in room this shift. He has not come out to report further chest discomfort or complaints. Labs ordered and pending .
[2023-12-14 20:00] VITALS: BP 155/99; PULSE 67; TEMP 36.4; O2SAT 95
[2023-12-14] MEDS: Melatonin 3 MG TABLET 9 MG PO (21:34)
[2023-12-15 02:27] VITALS: BMI 26.7
[2023-12-15 08:00] VITALS: BP 119/79; PULSE 60; TEMP 36.5; O2SAT 98
[2023-12-15 08:14] LABS: D Dimer High Sensitivity < 150 NG/ML
[2023-12-15] MEDS: Metoprolol Tartrate 12.5 MG HALFTAB PO ×2 (08:51→21:25)
[2023-12-15] MEDS: Apixaban 5 MG TABLET PO ×2 (08:51→21:25)
[2023-12-15] MEDS: Buprenorphine/Naloxone 8/2 mg FILM 1 FILM SUBLINGUAL ×2 (08:52→15:33)
[2023-12-15] MEDS: hydrOXYzine HCL 25 MG TABLET PO ×2 (12:38→21:29)
[2023-12-15] MEDS: OLANZapine 5 MG TABLET PO ×2 (12:38→21:26)
--- NOTE | 2023-12-15 14:58 | P.PNPSI_ITS ---
Subjective Subjective Date of Service: 12/15/23 Reason For Visit: depressed Subjective Notes: Conditional Voluntary Interim History: Pt reports sleeping through the night. We had discussed OP referral to GI, cardiology for s/s he has had for over one year, mostly after eating feeling pain across his abdomen, then numbness on left side, on and off palpitations but ekg are unremarkable. Review of Systems Review of Systems Yes all other systems are reviewed and are negative Mental Status Exam Mental Status Exam Narrative: Appearance: wearing hospital gown, fair hygiene, in NAD Behavior: cooperative Psychomotor: no agitation or retardation noted Speech: clear, normal rate/rhythm/volume, spontaneous TP: linear TC: worried about housing, medical issues Mood: depressed Affect: constricted SI: passive HI: none VH/AH: none Delusions: none Insight/judgment: fair x 2. Memory/cog: alert, oriented x4. grossly intact to conversational testing. Diagnostics Vital Signs (24Hr): Vital Signs - 24 hr 12/14/23 20:00 12/15/23 08:00 Temperature 97.6 F 97.7 F Pulse Rate 67 60 Blood Pressure 155/99 H 119/79 Pulse Oximetry 95 98 Oxygen Delivery Method Room Air Room Air BMI result Body Mass Index 26.7 Labs 12/09/23 07:19 12/11/23 11:53 Labs: Laboratory Results - last 48 hr 12/15/23 07:54 D-Dimer High Sensitivty < 150 Medications Medications Current Medications Acetaminophen (Acetaminophen 325 Mg Tablet) 650 mg PO Q6H PRN PRN Reason: Headache/Pain Mild Scale (1-3) Last Admin: 12/13/23 18:44 Dose: 650 mg Al Hydroxide/Mg Hydroxide (Magnesium Hydrox/Alum Hydrox 30 Ml Oral.Susp) 30 ml PO Q6H PRN PRN Reason: Heartburn/Nausea Last Admin: 12/12/23 08:27 Dose: 30 ml Apixaban (Apixaban 5 Mg Tablet) 5 mg PO BID [facility] Last Admin: 12/15/23 08:51 Dose: 5 mg Buprenorphine/Naloxone (Buprenorphine/Naloxone 8/2 Mg Film) 1 film SUBLINGUAL BID@0700,1500 [facility] Last Admin: 12/15/23 08:52 Dose: 1 film Hydroxyzine HCl (Hydroxyzine Hcl 50 Mg Tablet) 50 mg PO DAILY PRN PRN Reason: Anxiety Hydroxyzine HCl (Hydroxyzine Hcl 25 Mg Tablet) 25 mg PO Q6H PRN PRN Reason: Anxiety Last Admin: 12/15/23 12:38 Dose: 25 mg Magnesium Hydroxide (Milk Of Magnesia 30 Ml Oral.Susp) 30 ml PO DAILY PRN PRN Reason: Constipation Melatonin (Melatonin 3 Mg Tablet) 9 mg PO BEDTIME PRN PRN Reason: Sleep Last Admin: 12/14/23 21:34 Dose: 9 mg Metoprolol Tartrate (Metoprolol Tartrate 12.5 Mg Halftab) 12.5 mg PO BID [facility]; Protocol Last Admin: 12/15/23 08:51 Dose: 12.5 mg Nicotine (Nicotine 21 Mg Patch.Td24) 21 mg TRANSDERMA DAILY PRN PRN Reason: smoking cessation Nicotine Polacrilex (Nicotine Polacrilex 2 Mg Gum) 4 mg BUCCAL Q2H PRN PRN Reason: Nicotine Cravings Olanzapine (Olanzapine 5 Mg Tablet) 5 mg PO TID PRN PRN Reason: agitation Last Admin: 12/15/23 12:38 Dose: 5 mg Polyethylene Glycol (Polyethylene Glycol 3350 17 Gm Powd.Pack) 17 gm PO DAILY [facility] Stop: 12/15/23 17:44 Last Admin: 12/15/23 08:53 Dose: Not Given Trazodone HCl (Trazodone Hcl 50 Mg Tablet) 50 mg PO BEDTIME MRX1 PRN PRN Reason: Insomnia Allergies Allergies Allergy/AdvReac Type Severity Reaction Status Date / Time No Known Allergies Allergy Verified 12/09/23 05:42 Assessment & Plan Assessment & Plan (1) MDD (major depressive disorder), recurrent episode, moderate: Status: Acute Code(s): F33.1 - Major depressive disorder, recurrent, moderate (2) Cocaine use disorder: Status: Acute Code(s): F14.10 - Cocaine abuse, uncomplicated (3) Opioid use disorder: Status: Acute Code(s): F11.90 - Opioid use, unspecified, uncomplicated Assessment and Plan: on Methadone, in remission Plan Mr. Lynch is 53 year-old male with hx of opioid use disorder in remission on MAT, cocaine use, depression who self presented to [facility] [place] [facility] reporting increase depression, passive SI in setting of being evicted, using cocaine, lack of financial resources and abdominal pain intermittent for over one year that despite rule out of acute pathology is unclear its etiology. Utox positive for cocaine. He was recently discharged from [facility] after treatment for similar assessment. We discussed risks, benefits and alternative treatment options, he declines starting antidepressant stating that until abdominal pain not resolved he does not want to take more medications. PLAN 1. Admit to [facility], CV, 15 minutes checks 10/ continue tx. will check heavy metal levels. 12/14 continue tx. Reason for continued inpatient stay Substantial Risk for: inability to function Time Spent With Patient Time: Total time managing care of this patient today ____ minutes.
[2023-12-15 20:00] VITALS: BP 134/85; PULSE 69; RESP 18; TEMP 36.4; O2SAT 96
[2023-12-15] MEDS: Melatonin 3 MG TABLET 9 MG PO (21:25)
[2023-12-16] MEDS: Buprenorphine/Naloxone 8/2 mg FILM 1 FILM SUBLINGUAL ×2 (06:47→14:41)
[2023-12-16 08:18] VITALS: BP 147/102; PULSE 60; RESP 16; TEMP 36.4; O2SAT 97
[2023-12-16] MEDS: Metoprolol Tartrate 12.5 MG HALFTAB PO ×2 (08:27→20:59)
[2023-12-16] MEDS: Apixaban 5 MG TABLET PO ×2 (08:27→20:59)
--- NOTE | 2023-12-16 09:08 | HO.PSYCHPN ---
Subjective Subjective Date of Service: 12/16/23 Reason For Visit: depressed Interim History: met with patient; discussed with team pt lying in bed; he says he's good mood is good and anxiety is good. -hypertensive but review of vitals and it's intermittent Mental Status Exam Mental Status Exam Narrative: Appearance: wearing hospital gown, fair hygiene, in NAD Behavior: cooperative Psychomotor: no agitation or retardation noted Speech: clear, normal rate/rhythm/volume, spontaneous TP: linear TC: worried about housing, medical issues Mood: good Affect: constricted SI: denies HI: none VH/AH: none Delusions: none Insight/judgment: fair Diagnostics Vital Signs (24Hr): Vital Signs - 24 hr 12/15/23 20:00 12/16/23 08:18 Temperature 97.5 F 97.6 F Pulse Rate 69 60 Respiratory Rate 18 16 Blood Pressure 134/85 147/102 H Pulse Oximetry 96 97 Oxygen Delivery Method Room Air Room Air BMI result Body Mass Index 26.7 Labs 12/09/23 07:19 12/11/23 11:53 Labs: Laboratory Results - last 48 hr 12/15/23 07:54 D-Dimer High Sensitivty < 150 Medications Medications Current Medications Acetaminophen (Acetaminophen 325 Mg Tablet) 650 mg PO Q6H PRN PRN Reason: Headache/Pain Mild Scale (1-3) Last Admin: 12/13/23 18:44 Dose: 650 mg Al Hydroxide/Mg Hydroxide (Magnesium Hydrox/Alum Hydrox 30 Ml Oral.Susp) 30 ml PO Q6H PRN PRN Reason: Heartburn/Nausea Last Admin: 12/12/23 08:27 Dose: 30 ml Apixaban (Apixaban 5 Mg Tablet) 5 mg PO BID [facility] Last Admin: 12/16/23 08:27 Dose: 5 mg Buprenorphine/Naloxone (Buprenorphine/Naloxone 8/2 Mg Film) 1 film SUBLINGUAL BID@0700,1500 [facility] Last Admin: 12/16/23 06:47 Dose: 1 film Hydroxyzine HCl (Hydroxyzine Hcl 50 Mg Tablet) 50 mg PO DAILY PRN PRN Reason: Anxiety Hydroxyzine HCl (Hydroxyzine Hcl 25 Mg Tablet) 25 mg PO Q6H PRN PRN Reason: Anxiety Last Admin: 12/15/23 21:29 Dose: 25 mg Magnesium Hydroxide (Milk Of Magnesia 30 Ml Oral.Susp) 30 ml PO DAILY PRN PRN Reason: Constipation Melatonin (Melatonin 3 Mg Tablet) 9 mg PO BEDTIME PRN PRN Reason: Sleep Last Admin: 12/15/23 21:25 Dose: 9 mg Metoprolol Tartrate (Metoprolol Tartrate 12.5 Mg Halftab) 12.5 mg PO BID [facility]; Protocol Last Admin: 12/16/23 08:27 Dose: 12.5 mg Nicotine (Nicotine 21 Mg Patch.Td24) 21 mg TRANSDERMA DAILY PRN PRN Reason: smoking cessation Nicotine Polacrilex (Nicotine Polacrilex 2 Mg Gum) 4 mg BUCCAL Q2H PRN PRN Reason: Nicotine Cravings Olanzapine (Olanzapine 5 Mg Tablet) 5 mg PO TID PRN PRN Reason: agitation Last Admin: 12/15/23 21:26 Dose: 5 mg Trazodone HCl (Trazodone Hcl 50 Mg Tablet) 50 mg PO BEDTIME MRX1 PRN PRN Reason: Insomnia Allergies Allergies Allergy/AdvReac Type Severity Reaction Status Date / Time No Known Allergies Allergy Verified 12/09/23 05:42 Assessment & Plan Assessment & Plan (1) MDD (major depressive disorder), recurrent episode, moderate: Status: Acute Code(s): F33.1 - Major depressive disorder, recurrent, moderate (2) Cocaine use disorder: Status: Acute Code(s): F14.10 - Cocaine abuse, uncomplicated (3) Opioid use disorder: Status: Acute Code(s): F11.90 - Opioid use, unspecified, uncomplicated Assessment and Plan: on Methadone, in remission Plan Mr. Lynch is 53 year-old male with hx of opioid use disorder in remission on MAT, cocaine use, depression who self presented to [facility] reporting increase depression, passive SI in setting of being evicted, using cocaine, lack of financial resources and abdominal pain intermittent for over one year that despite rule out of acute pathology is unclear its etiology. Utox positive for cocaine. He was recently discharged from [facility] after treatment for similar assessment. We discussed risks, benefits and alternative treatment options, he declines starting antidepressant stating that until abdominal pain not resolved he does not want to take more medications. PLAN 1. Admit to [facility], CV, 15 minutes checks 10/3 continue tx. will check heavy metal levels. 10/5 pt lying in bed; he says he's good mood is good and anxiety is good. -hypertensive but review of vitals and it's intermittent Patient educated on: diagnosis Informed Consent: understands Reason for continued inpatient stay Substantial Risk for: stable for discharge Time Spent With Patient Time: Total time managing care of this patient today ____ minutes.
[2023-12-16 20:00] VITALS: BP 139/87; PULSE 67; RESP 18; TEMP 36.7; O2SAT 97
[2023-12-16] MEDS: Melatonin 3 MG TABLET 9 MG PO (20:59)
[2023-12-16] MEDS: OLANZapine 5 MG TABLET PO (20:59)
[2023-12-17] MEDS: Buprenorphine/Naloxone 8/2 mg FILM 1 FILM SUBLINGUAL ×2 (07:06→15:01)
[2023-12-17 07:47] VITALS: BP 141/93; PULSE 62; RESP 16; TEMP 37.1; O2SAT 95
[2023-12-17] MEDS: Metoprolol Tartrate 12.5 MG HALFTAB PO ×2 (08:37→20:53)
[2023-12-17] MEDS: Apixaban 5 MG TABLET PO ×2 (08:37→20:53)
--- NOTE | 2023-12-17 10:14 | P.PNPSI_ITS ---
Subjective Subjective Date of Service: 12/17/23 Reason For Visit: depressed Interim History: Met with patient; discussed with team pt says that he's alright and that he's ready to discharge Monday. Denies any other symptoms. Mental Status Exam Mental Status Exam Narrative: Appearance: wearing hospital gown, fair hygiene, in NAD Behavior: cooperative Psychomotor: no agitation or retardation noted Speech: clear, normal rate/rhythm/volume, spontaneous TP: linear TC: worried about housing, medical issues Mood: alright Affect: congruent, bright, calm SI: denies HI: none VH/AH: none Delusions: none Insight/judgment: fair Diagnostics Vital Signs (24Hr): Vital Signs - 24 hr 12/16/23 20:00 12/17/23 07:47 Temperature 98.1 F 98.8 F Pulse Rate 67 62 Respiratory Rate 18 16 Blood Pressure 139/87 141/93 H Pulse Oximetry 97 95 Oxygen Delivery Method Room Air Room Air BMI result Body Mass Index 26.7 Labs 12/09/23 07:19 12/11/23 11:53 Medications Medications Current Medications Acetaminophen (Acetaminophen 325 Mg Tablet) 650 mg PO Q6H PRN PRN Reason: Headache/Pain Mild Scale (1-3) Last Admin: 12/13/23 18:44 Dose: 650 mg Al Hydroxide/Mg Hydroxide (Magnesium Hydrox/Alum Hydrox 30 Ml Oral.Susp) 30 ml PO Q6H PRN PRN Reason: Heartburn/Nausea Last Admin: 12/12/23 08:27 Dose: 30 ml Apixaban (Apixaban 5 Mg Tablet) 5 mg PO BID [facility] Last Admin: 12/17/23 08:37 Dose: 5 mg Buprenorphine/Naloxone (Buprenorphine/Naloxone 8/2 Mg Film) 1 film SUBLINGUAL BID@0700,1500 [facility] Last Admin: 12/17/23 07:06 Dose: 1 film Hydroxyzine HCl (Hydroxyzine Hcl 50 Mg Tablet) 50 mg PO DAILY PRN PRN Reason: Anxiety Hydroxyzine HCl (Hydroxyzine Hcl 25 Mg Tablet) 25 mg PO Q6H PRN PRN Reason: Anxiety Last Admin: 12/15/23 21:29 Dose: 25 mg Magnesium Hydroxide (Milk Of Magnesia 30 Ml Oral.Susp) 30 ml PO DAILY PRN PRN Reason: Constipation Melatonin (Melatonin 3 Mg Tablet) 9 mg PO BEDTIME PRN PRN Reason: Sleep Last Admin: 12/16/23 20:59 Dose: 9 mg Metoprolol Tartrate (Metoprolol Tartrate 12.5 Mg Halftab) 12.5 mg PO BID [facility]; Protocol Last Admin: 12/17/23 08:37 Dose: 12.5 mg Nicotine (Nicotine 21 Mg Patch.Td24) 21 mg TRANSDERMA DAILY PRN PRN Reason: smoking cessation Nicotine Polacrilex (Nicotine Polacrilex 2 Mg Gum) 4 mg BUCCAL Q2H PRN PRN Reason: Nicotine Cravings Olanzapine (Olanzapine 5 Mg Tablet) 5 mg PO TID PRN PRN Reason: agitation Last Admin: 12/16/23 20:59 Dose: 5 mg Trazodone HCl (Trazodone Hcl 50 Mg Tablet) 50 mg PO BEDTIME MRX1 PRN PRN Reason: Insomnia Allergies Allergies Allergy/AdvReac Type Severity Reaction Status Date / Time No Known Allergies Allergy Verified 12/09/23 05:42 Assessment & Plan Assessment & Plan (1) MDD (major depressive disorder), recurrent episode, moderate: Status: Acute Code(s): F33.1 - Major depressive disorder, recurrent, moderate (2) Cocaine use disorder: Status: Acute Code(s): F14.10 - Cocaine abuse, uncomplicated (3) Opioid use disorder: Status: Acute Code(s): F11.90 - Opioid use, unspecified, uncomplicated Assessment and Plan: on Methadone, in remission Plan Mr. Lynch is 53 year-old male with hx of opioid use disorder in remission on MAT, cocaine use, depression who self presented to [facility] [place] [facility] reporting increase depression, passive SI in setting of being evicted, using cocaine, lack of financial resources and abdominal pain intermittent for over one year that despite rule out of acute pathology is unclear its etiology. Utox positive for cocaine. He was recently discharged from after treatment for similar assessment. We discussed risks, benefits and alternative treatment options, he declines starting antidepressant stating that until abdominal pain not resolved he does not want to take more medications. PLAN 1. Admit to [facility], CV, 15 minutes checks / continue tx. will check heavy metal levels. 10/5 pt lying in bed; he says he's good mood is good and anxiety is good. -hypertensive but review of vitals and it's intermittent 12/16 continue current treatment plan; patient anticipating discharge Monday Patient educated on: diagnosis Informed Consent: understands Reason for continued inpatient stay Substantial Risk for: stable for discharge Time Spent With Patient Time: Total time managing care of this patient today ____ minutes.
[2023-12-17 20:00] VITALS: BP 148/89; PULSE 74; RESP 18; TEMP 36.6; O2SAT 97
[2023-12-17] MEDS: Melatonin 3 MG TABLET 9 MG PO (20:52)
[2023-12-17] MEDS: hydrOXYzine HCL 25 MG TABLET PO (20:58)
[2023-12-18 07:59] VITALS: BP 117/77; PULSE 65; RESP 16; TEMP 36.6; O2SAT 95
[2023-12-18] MEDS: Metoprolol Tartrate 12.5 MG HALFTAB PO (08:24)
[2023-12-18] MEDS: Apixaban 5 MG TABLET PO (08:24)
[2023-12-18] MEDS: Buprenorphine/Naloxone 8/2 mg FILM 1 FILM SUBLINGUAL (08:24)
--- NOTE | 2023-12-18 10:06 | PM.PSYDC ---
DS: Providers Provider Date of Service: 12/18/23 Date of admission: 12/11/23 13:28 Date of discharge: 12/18/23 Primary care physician: Unknown Physician DS: Diagnosis Discharge Diagnosis (1) MDD (major depressive disorder), recurrent episode, moderate: Status: Acute (2) Cocaine use disorder: Status: Acute (3) Opioid use disorder: Status: Acute DS: Medications Discharge Medications Home Medications: Home Medications ?Medication ?Instructions ?Recorded ?Confirmed apixaban 5 mg tablet (Eliquis) 5 mg PO BID 11/22/23 12/09/23 lorazepam 1 mg tablet 1 mg PO DAILY PRN Anxiety 11/22/23 12/09/23 melatonin 10 mg tablet 10 mg PO BEDTIME PRN Sleep 11/22/23 12/09/23 metoprolol tartrate 25 mg tablet 12.5 mg PO BID 11/22/23 12/09/23 famotidine 40 mg tablet 40 mg PO BEDTIME PRN Heartburn 12/10/23 12/10/23 Mental Status Exam Mental Status Exam Narrative: Appearance: wearing hospital gown, fair hygiene, in NAD Behavior: cooperative Psychomotor: no agitation or retardation noted Speech: clear, normal rate/rhythm/volume, spontaneous TP: linear TC: worried about housing, medical issues Mood: alright Affect: congruent, bright, calm SI: denies HI: none VH/AH: none Delusions: none Insight/judgment: fair Data Data Completed and Pending Completed studies during hospitalization [Text1]: 12/11/23 12/12/23 12/12/23 11:53 07:52 07:57 D-Dimer High Sensitivty Potassium 4.7 Total Bilirubin 0.6 Direct Bilirubin 0.1 AST 20 ALT 30 Alkaline Phosphatase 52 Total Protein 6.6 Albumin 4.0 Triglycerides 132 Cholesterol 203 H LDL Cholesterol, Calc 140 H HDL Cholesterol 37 L Whole Blood Arsenic Whole Blood Lead Mercury 12/15/23 07:54 D-Dimer High Sensitivty < 150 Potassium Total Bilirubin Direct Bilirubin AST ALT Alkaline Phosphatase Total Protein Albumin Triglycerides Cholesterol LDL Cholesterol, Calc HDL Cholesterol Whole Blood Arsenic Pending Whole Blood Lead Pending Mercury Pending DS: Summary Hospital Course Hospital Course: Narrative: Mr. Lynch is a 53 year-old male who self presented to [facility] ED reporting increase depression, suicidal ideation without a plan in the setting of recently being evicted from his apartment, cocaine use, abdominal pain of unclear etiology. His utox was positive for cocaine. He was recently discharged from with similar presentation. On the unit, pt presents as cooperative. He reports he has been more depressed. He reports he received eviction notice last week due to lack of payment. He reports that for the past year he has been having intermittent sharp pain across his abdomen, his appetite has decreased, he feels nausea sometimes in the morning. No vomiting. He does have at times constipation. He reports fair sleep. No hx of VH/AH. He reports he does not want an antidepressant until abdominal pain is figured out and he gets clarification of dx. He has seen GI specialist before. He reports on and off use of cocaine. He does not think it is an issue nor that he needs additional dual dx treatment. Past Psychiatric History: hosps:2 prior admission. 11/2023. SA: denies SIB: denies HIB: denies outpt: denies h/o outpt Tx, then states he sees a provider at [facility] in [place] for ativan (Catia). Medical Evaluation Reviewed: Yes HOSPITAL COURSE On the unit, pt was admitted on a CV and placed on 15 minutes checks for safety. Pt reports her ability to function and maintain a job has been greatly affected by combination of physical symptoms which seem to be triggered after he eats, then he experiences chest palpitations, vertical pain across upper abdomen which then leads to left side numbness and tingling and also lower left leg. He has had number of EKGs, troponins, no evidence of [place] or ischemia. He reports pain prevents him from eating. He has lost some weight because of this. He has been seen by GI and cardiology but no explanation as to why he continues to have these symptoms. He denies any plan or intent to harm himself. He was recently evicted from apartment due to lack of payment and is looking for ways to secure housing. We had discussed adding an antidepressant but pt states that until these symptoms are resolved or he is given and explanation, he does not want to add any medications. We discussed referral to GI and cardiology here a [facility] outpatient. I did order blood levels of heavy metals, which are pending. His TSH is normal. LFTs also normal. No signs of psychosis or delusions. He was sleeping and eaing with some caution. He was visible on the unit, social with select peers. No aggression towards self or others. We did discuss effects of cocaine on his health, which he reports is sporadic. Status at Discharge Cognitive/behavioral status at discharge: Pt with brighter, non labile affect. No SI/HI. No VH/AH. No delusions. Sleeping and eating well. No behavioral concerns. Pt has not used opioids recently, on suboxone, which he reports is very helpful. Given narcan to go. Functional status at discharge: independent ambulation Overall status at discharge: patient is progressing back to baseline Time Spent with Patient Time attestation: Total time managing care of this patient today ___35_ minutes. Time spent: Greater than 30 minutes Discharge Plan Discharge Anticipated Discharge Date/Time: 12/18/23 09:59 Patient Disposition: Home, Self-Care Discharge Diagnosis: MDD, recurrent, moderate Cocaine use disorder opioid use disorder on MAT Referrals: [facility]: Primary Care Provider (PCP) [Other] - 12/20/23 1:45 pm (Follow-up appointment with primary care provider at [facility]) Zina Banks (psychiatry): [facility] [Other] - 01/02/24 9:00 am (Scheduled appointment with psychiatric medication provider at [facility].) Physician,Unknown J [Primary Care Provider] - 1 Week Discharge Medications: Continued lorazepam 1 mg tablet 1 mg PO DAILY PRN (Reason: Anxiety) metoprolol tartrate 25 mg tablet 12.5 mg PO BID Eliquis 5 mg tablet 5 mg PO BID melatonin 10 mg Tablet 10 mg PO BEDTIME PRN (Reason: Sleep) famotidine 40 mg tablet 40 mg PO BEDTIME PRN (Reason: Heartburn) Discontinued buprenorphine-naloxone [Suboxone] 8-2 mg film 1 film sublingual BID@0700,1500 hydroxyzine pamoate 50 mg capsule 50 mg PO DAILY PRN (Reason: Anxiety) Discharge Orders: Discharge Order (Routine); Ordered 12/18/23 Ordered By: Molly Aguilar Diet: Regular diet Activity on Discharge: As tolerated Stand Alone Forms: Patient Portal Discharge page, Community Support Print Language: Wolof Care Plan Goals: 1. Maintain mood 2. No SI/HI 3. Harm reduction- narcan given on discharge. Health Concerns: Follow up with GI, cardiology Plan of Treatment: 1. Take medications as prescribed. 2. Given narcan at time of discharge Assessment: Pt with brighter, non labile affect. No SI/HI. No VH/AH. No delusions. Sleeping and eating well.
[2023-12-18] MEDS: Naloxone HCl Nasal TAKE HOME 4 MG SPRAY 8 MG NOSTRILALT (10:59)
[2023-12-20 12:18] LABS: Arsenic, Blood 6 mcg/L (<23); Lead, Blood 1.1 mcg/dL (<3.5); Mercury, Blood <4 mcg/L (<=10)
== END 2023-12-18 11:15 | disposition home or self-care (01) | DRG 885 ==
LOC: HO.ED 07:42 → HO.PM5 12-11 13:30
PROVIDERS: Emergency Medicine; Nurse Practitioner Family; Admitting Provider Psychiatry & Neurology Psychiatry; Emergency Provider Emergency Medicine Emergency Medical Services; Visit Provider Social Worker
DX: F33.1 Major depressive disorder, recurrent, moderate (principal); R45.851 Suicidal ideations; F11.20 Opioid dependence, uncomplicated; Z59.02 Unsheltered homelessness; F14.10 Cocaine abuse, uncomplicated; Z79.01 Long term (current) use of anticoagulants; Z79.899 Other long term (current) drug therapy
CPT/HCPCS: 36415; 80048; 80061; 80076; 80307; 82175; 83655; 83825; 84132; 85025; 85379; 93005; 99285; S9485

== ENCOUNTER → 2023-12-11 13:28 | Outpatient (BNV) | payer OTHER, SELFPAY | PROVIDERS: Admitting Provider Psychiatry & Neurology Psychiatry; Emergency Provider Emergency Medicine Emergency Medical Services; Visit Provider Social Worker | DX: F33.1 Major depressive disorder, recurrent, moderate (principal); F14.10 Cocaine abuse, uncomplicated; F11.90 Opioid use, unspecified, uncomplicated | CPT/HCPCS: 90792; 99231; 99232; 99239 ==

== ENCOUNTER 2023-12-23 17:44 | Emergency (ER) | payer MEDICAID, SELFPAY ==
--- NOTE | ~2023-12-23 | XR_ITS ---
EXAMINATION: XR CHEST CLINICAL INFORMATION: Pain COMPARISON: None available. TECHNIQUE: 2 views of the chest were obtained. FINDINGS: No significant abnormality is noted involving the heart, lungs, mediastinum, bony thorax or soft tissues. XR/XR chest 2V IMPRESSION: Unremarkable examination. Electronically signed by: Ace Grover DO 12/23/2023 06:48 PM EDT RP
--- NOTE | 2023-12-23 17:53 | ECG_ITS ---
Test Reason : CHEST PAIN Blood Pressure : / mmHG Vent. Rate : 066 BPM Atrial Rate : 066 BPM P-R Int : 150 ms QRS Dur : 096 ms QT Int : 410 ms P-R-T Axes : 056 009 042 degrees QTc Int : 429 ms Normal sinus rhythm Normal ECG When compared with ECG of 14-DEC-2023 12:20, No significant change was found Referred By: Terrance Galeana Electronically Signed By:CARA STEELE MD
[2023-12-23 17:58] VITALS: BP 114/72; PULSE 70; O2SAT 97; BMI 28.6
--- NOTE | 2023-12-23 18:07 | PC.NURSE ---
patient arrives to ED [facility], states he is homeless and recently has been experiencing some leg and chest pain. states he would like to speak with a mental health nurse and he was just recently discharged from on monday. patient complaining of sub sternal chest pain that has occasionally woken him out of a sleep, states he has had this pain for a long time . patient also complains of bilateral leg pain and foot pain and when asking when it started patient states its from these shoes educated to pt to take off his shoes then, patient took off shoes and endorsed some relief. alf requesting to speak with care team and a mental health nurse, when asking alf if he is feeling like he is going to hurt himself or if he has ever had a plan patient states everyone has at one point, so i guess so yeah, when i was discharged from they wanted me to start taking medications but i never did, maybe i should have patient placed on panel monitor VSS at this time. EKG completed. provider made aware of patient arrival. plan of care ongoing
--- NOTE | 2023-12-23 18:29 | ED.CHESTPAIN ---
HPI - Chest Pain General Chief Complaint: Chest Pain Stated Complaint: WORSENING EPIGASTRIC/ L SIDED CHEST PAIN Time Seen by Provider: 12/23/23 18:12 Source: patient, RN notes reviewed and old records reviewed Mode of arrival: EMS Limitations: no limitations History of Present Illness ED Provider: Kervin HPI narrative: 53-year-old male presents with 1 day of left-sided chest pain. Patient describes pain as pressure with shooting pains radiating to his neck. Also states that his legs are swollen, he states that he has been walking more in the past few days. Denies dyspnea, fever, endorses cough. States that he had similar symptoms 5 months ago at which time he says he had a PE. Has been on Eliquis since states that he is compliant with dosing. Denies unilateral leg swelling, redness, was recently discharged from [place] [id number]. Today he says that he would like to speak to someone regarding his mental health, he denies a dry at this time, I am scared of what I will do to myself . MD complaint: chest pain and chest heaviness Onset (ago): day(s) Timing of current episode: constant Prior episodes: Yes Onset: during rest Pain location: left chest Pain radiation: neck Quality: heaviness Relieving factors: nothing Exacerbating factors: nothing Context: history of DVT/PE Associated symptoms: leg swelling Treatment prior to arrival: none Related Data Home Medications ?Medication ?Instructions ?Recorded ?Confirmed apixaban 5 mg tablet (Eliquis) 5 mg PO BID 11/22/23 12/09/23 lorazepam 1 mg tablet 1 mg PO DAILY PRN Anxiety 11/22/23 12/09/23 melatonin 10 mg tablet 10 mg PO BEDTIME PRN Sleep 11/22/23 12/09/23 metoprolol tartrate 25 mg tablet 12.5 mg PO BID 11/22/23 12/09/23 famotidine 40 mg tablet 40 mg PO BEDTIME PRN Heartburn 12/10/23 12/10/23 Previous Rx's ?Medication ?Instructions ?Recorded buprenorphine 8 mg-naloxone 2 mg 1 film buccal BID #16 ea 12/18/23 sublingual film (Suboxone) Allergies Allergy/AdvReac Type Severity Reaction Status Date / Time No Known Allergies Allergy Verified 12/23/23 18:01 Review of Systems Constitutional: Constitutional: Reports as per HPI, Denies chills, Denies fatigue, Denies fever(s) and Denies headache(s) ENT: Denies headache(s) Cardiovascular: Cardiovascular: Reports chest pain, Reports chest pain at rest, Denies syncope, Reports pedal edema, Reports leg edema, Denies lightheadedness, Denies Loss of Consciousness, Denies palpitations and Reports dyspnea Respiratory: Respiratory: Denies change in phlegm color, Reports cough, Denies hemoptysis and Reports dyspnea Gastrointestinal: Gastrointestinal: Denies abdominal pain, Denies constipation and Denies vomiting Genitourinary: Genitourinary: Denies difficulty urinating and Denies dysuria Neurologic: Denies syncope, Denies headache(s) and Denies focal weakness Psychiatric: Psychiatric: Reports as per HPI Endocrine: Endocrine: Denies fatigue and Denies palpitations [facility] Social History Social History Household Members: None Housing: Homeless Do you presently have visiting nurse or other home services: No Alcohol intake: current Alcohol intake frequency: a few times a week Alcohol type: hard liquor Patient Tobacco Use Status: Former Tobacco user Smoked in Last 30 Days: No Use of substances other than those prescribed or required for medical reasons: Yes Substance Use Type: Marijuana Substance Use Type Other:: suboxone Advance Directives: No Advance Directives Information Provided: No Do you have a plan to hurt others: No Plan service: No Sexual orientation: Straight/Heterosexual Physical Exam Vital Signs: Vital Signs: Last Vital Signs Temp 97.4 F 12/24/23 06:00 Pulse 56 12/24/23 06:00 Resp 16 12/24/23 06:00 BP 113/77 12/24/23 06:00 Pulse Ox 96 12/24/23 06:00 O2 Del Method Room Air 12/24/23 06:00 BMI result Body Mass Index 28.6 Const: General: healthy appearing, comfortable, no acute distress, alert and awake Nutritional Appearance: well nourished Orientation/consciousness: patient oriented x3 HEENT: Head: Yes normocephalic and Yes atraumatic Throat: Yes posterior oropharynx normal Eyes: Eyelids: Yes eyelids normal Conjunctivae: conjunctivae normal Sclerae: sclerae normal Corneas: corneas normal Pupils: Equal, round and reactive pupils present EOM: EOMs intact bilaterally Neck: Neck: Yes full ROM Resp: Effort & Inspection: normal respiratory effort, able to speak in complete sentences, no audible wheezes and not labored Auscultation: clear to auscultation bilaterally Cardio: Jugular venous distension: no JVD Rate: regular rate Rhythm: regular rhythm Heart sounds: S1 normal heart sound present and S2 normal heart sound present GI: Inspection: No distended Palpation (GI): Soft to palpation, not firm, nontender, no guarding and not rigid Auscultation: normoactive bowel sounds Skin: General skin exam: no rashes or lesions noted and elasticity normal Neuro: General: patient oriented x3 Cranial nerves: Yes CN's II-XII intact bilaterally, Yes Equal, round and reactive pupils present and Yes Bilaterally intact EOM present Cognition (Neuro): normal cognition Extrem: Other: Mild bilateral edema in LE, feet, no areas of induration, redness, tenderness. General: Yes edema Course Reevaluation(s) Reevaluation #1: Patient is in his troponin was 5.4, a repeat troponin was ordered which was 4, he has ruled out for ACS. BNP is within normal limits, no evidence of worsening PE he is not tachycardic, tachypneic or hypoxic. The patient is medically cleared for care team evaluation Time: 02:18 Reevaluation #2: Physician observation was started at 02:18, at this time patient remained stable, levels are stable, calm and cooperative. Uneventful night. Awaiting care team evaluation given his underlying depression, though not actively endorsing SI Time: 07:37 Reevaluation #3: 12/24/2023:Physician observation continued. Uneventful night. Vital signs stable. No complaints from nursing overnight. Await for care team evaluation,Will continue to monitor. Time: 09:43 Medical Decision Making Medical Decision Making [facility] Narrative: 53-year-old male presents for evaluation of chest pain. Plan for cardiac workup including troponin, BNP, chest x-ray, his EKG is nondiagnostic. He is medically could, the patient can be referred to the care team for evaluation of his mental health. He is well-appearing, vital signs are currently stable Differential Diagnosis Differential Diagnoses: The differential diagnosis associated with the presentation includes Chest pain ACS Pneumonia Costochondritis PE Lab Data [facility] Lab Attestation statement: I reviewed the patient's lab results. No leukocytosis or significant anemia. Normal platelet count. No electrolyte abnormalities. 12/23/23 18:49 12/23/23 18:49 Labs: Lab Results 12/23/23 12/23/23 12/23/23 Range/Units 18:49 18:50 22:00 WBC 7.5 (4.8-10.8) X10*3/uL RBC 4.41 L (4.60-5.80) X10*6/uL Hgb 14.0 (14.0-18.0) g/dl Hct 41.6 L (42.0-52.0) % MCV 94.3 (80.0-98.0) fL MCH 31.7 (27.0-33.0) pg MCHC 33.7 (31.0-36.0) g/dl RDW 12.2 (11.0-16.0) % Plt Count 305 (160-400) X10*3/uL MPV 9.5 (9.4-12.4) fL Immature Gran % (Auto) 0.1 (0.0-0.4) % Neut % (Auto) 75.1 H (45-73) % Lymph % (Auto) 16.8 L (20-40) % Addison % (Auto) 6.7 (2-11) % Eos % (Auto) 0.8 (0-4) % Baso % (Auto) 0.5 (0-2) % Lymph # (Auto) 1.3 (1.2-4.9) X10*3/uL Addison # (Auto) 0.5 (0.1-1.2) X10*3/uL Eos # (Auto) 0.1 (0.0-0.4) X10*3/uL Baso # (Auto) 0.0 (0.0-0.2) X10*3/uL Abs Immat Gran (auto) 0.01 (0.00-0.03) X10*3/uL Absolute Neuts (auto) 5.6 (2.0-8.3) x10*3/uL Absolute Nucleated RBC 0.000 (0.0-0.012) X10*3/uL Nucleated RBC % (auto) 0.0 (0.0-0.2) /100WBC PT 11.7 (10.9-12.4) SEC INR 1.0 (0.9-1.1) Sodium 138 (135-145) mmol/L Potassium 4.3 (3.3-5.1) mmol/L Chloride 107 (96-108) mmol/L Carbon Dioxide 25 (22-29) mmol/L Anion Gap 10 L (12-20) BUN 20 H (9-16) mg/dL Creatinine 0.83 (0.5-1.4) mg/dL Estim Creat Clear Calc 119.9 Estimated GFR > 60 Random Glucose 100 (60-115) mg/dL Calcium 8.5 D (8.4-10.2) mg/dL Total Bilirubin 0.3 (0.0-1.0) mg/dL AST 50 H (5-37) U/L ALT 72 H (0-40) U/L Alkaline Phosphatase 59 (39-117) U/L Troponin I High Sens 5.4 D (<3.5-35.0) ng/L B-Natriuretic Peptide 55 (<100) pg/mL Total Protein 6.4 L (6.5-8.0) g/dL Albumin 3.8 (3.5-5.0) g/dL Lipase 11 (8-78) U/L Salicylates < 5.0 L (15-30) mg/dL Urine Opiates Screen Not Detected (Not Detect) Ur Buprenorphine Scrn Positive H (Not Detect) ng/mL Ur Oxycodone Screen Not Detected (Not Detect) ng/mL Urine Methadone Screen Not Detected (Not Detect) ng/mL Urine Fentanyl Screen Not Detected (Not Detect) Acetaminophen < 3 (<30) mcg/mL Ur Barbiturates Screen Not Detected (Not Detect) Ur Phencyclidine Scrn Not Detected (Not Detect) Ur Amphetamines Screen Not Detected (Not Detect) U Benzodiazepines Scrn Not Detected (Not Detect) Urine Cocaine Screen Not Detected (Not Detect) U Marijuana (THC) Screen POSITIVE H (Not Detect) 12/23/23 Range/Units 23:14 WBC (4.8-10.8) X10*3/uL RBC (4.60-5.80) X10*6/uL Hgb (14.0-18.0) g/dl Hct (42.0-52.0) % MCV (80.0-98.0) fL MCH (27.0-33.0) pg MCHC (31.0-36.0) g/dl RDW (11.0-16.0) % Plt Count (160-400) X10*3/uL MPV (9.4-12.4) fL Immature Gran % (Auto) (0.0-0.4) % Neut % (Auto) (45-73) % Lymph % (Auto) (20-40) % Addison % (Auto) (2-11) % Eos % (Auto) (0-4) % Baso % (Auto) (0-2) % Lymph # (Auto) (1.2-4.9) X10*3/uL Addison # (Auto) (0.1-1.2) X10*3/uL Eos # (Auto) (0.0-0.4) X10*3/uL Baso # (Auto) (0.0-0.2) X10*3/uL Abs Immat Gran (auto) (0.00-0.03) X10*3/uL Absolute Neuts (auto) (2.0-8.3) x10*3/uL Absolute Nucleated RBC (0.0-0.012) X10*3/uL Nucleated RBC % (auto) (0.0-0.2) /100WBC PT (10.9-12.4) SEC INR (0.9-1.1) Sodium (135-145) mmol/L Potassium (3.3-5.1) mmol/L Chloride (96-108) mmol/L Carbon Dioxide (22-29) mmol/L Anion Gap (12-20) BUN (9-16) mg/dL Creatinine (0.5-1.4) mg/dL Estim Creat Clear Calc Estimated GFR Random Glucose (60-115) mg/dL Calcium (8.4-10.2) mg/dL Total Bilirubin (0.0-1.0) mg/dL AST (5-37) U/L ALT (0-40) U/L Alkaline Phosphatase (39-117) U/L Troponin I High Sens 4.0 (<3.5-35.0) ng/L B-Natriuretic Peptide (<100) pg/mL Total Protein (6.5-8.0) g/dL Albumin (3.5-5.0) g/dL Lipase (8-78) U/L Salicylates (15-30) mg/dL Urine Opiates Screen (Not Detect) Ur Buprenorphine Scrn (Not Detect) ng/mL Ur Oxycodone Screen (Not Detect) ng/mL Urine Methadone Screen (Not Detect) ng/mL Urine Fentanyl Screen (Not Detect) Acetaminophen (<30) mcg/mL Ur Barbiturates Screen (Not Detect) Ur Phencyclidine Scrn (Not Detect) Ur Amphetamines Screen (Not Detect) U Benzodiazepines Scrn (Not Detect) Urine Cocaine Screen (Not Detect) U Marijuana (THC) Screen (Not Detect) Discharge Plan Discharge Clinical Impression: Chest pain, Depression Patient Disposition: Still a Patient Prescriptions: No Action lorazepam 1 mg tablet 1 mg PO DAILY PRN (Reason: Anxiety) metoprolol tartrate 25 mg tablet 12.5 mg PO BID Eliquis 5 mg tablet 5 mg PO BID melatonin 10 mg Tablet 10 mg PO BEDTIME PRN (Reason: Sleep) famotidine 40 mg tablet 40 mg PO BEDTIME PRN (Reason: Heartburn) buprenorphine-naloxone [Suboxone] 8-2 mg film 1 film buccal BID Qty: 16 0RF Print Language: Divehi
[2023-12-23 18:31] VITALS: BP 122/79; PULSE 67; RESP 17; TEMP 36.7; O2SAT 95
[2023-12-23 18:57] LABS: MANUAL DIFF FLAG NO
[2023-12-23 18:59] LABS: Basophils Percent Auto 0.5 % (0-2); Eosinophils Absolute Auto 0.1 X10*3/uL (0.0-0.4); Eosinophils Percent Auto 0.8 % (0-4); Hematocrit 41.6 % (42.0-52.0); Imm Gran Abs Auto 0.01 X10*3/uL (0.00-0.03); Imm Gran Pct Auto 0.1 % (0.0-0.4); Lymphocytes Absolute Auto 1.3 X10*3/uL (1.2-4.9); Lymphocytes Percent Auto 16.8 % (20-40); Mean Corpuscular HGB Conc 33.7 g/dl (31.0-36.0); Mean Corpuscular Hemoglobin 31.7 pg (27.0-33.0); Mean Corpuscular Volume 94.3 fL (80.0-98.0); Mean Platelet Volume 9.5 fL (9.4-12.4); Monocytes Absolute Auto 0.5 X10*3/uL (0.1-1.2); Monocytes Percent Auto 6.7 % (2-11); Neutrophils Absolute Auto 5.6 x10*3/uL (2.0-8.3); Neutrophils Percent Auto 75.1 % (45-73); Platelet Count 305 X10*3/uL (160-400); Red Blood Count 4.41 X10*6/uL (4.60-5.80); Red Cell Distribution Width 12.2 % (11.0-16.0); White Blood Count 7.5 X10*3/uL (4.8-10.8)
[2023-12-23 19:08] LABS: Prothrombin Time 11.7 SEC (10.9-12.4)
[2023-12-23 19:17] LABS: Alanine Aminotransferase 72 U/L (0-40); Albumin Level 3.8 g/dL (3.5-5.0); Alkaline Phosphatase 59 U/L (39-117); Anion Gap 10 (12-20); Aspartate Amino Transferase 50 U/L (5-37); Bilirubin Total 0.3 mg/dL (0.0-1.0); Blood Urea Nitrogen 20 mg/dL (9-16); Calcium 8.5 mg/dL (8.4-10.2); Carbon Dioxide 25 mmol/L (22-29); Chloride 107 mmol/L (96-108); Creatinine Clr Calc Pharmacy 119.9; Estimated Glomerular Filt Rate > 60; Glucose Random 100 mg/dL (60-115); Lipase 11 U/L (8-78); Potassium 4.3 mmol/L (3.3-5.1); Sodium 138 mmol/L (135-145); Total Protein 6.4 g/dL (6.5-8.0)
[2023-12-23 19:22] LABS: B Type Natriuretic Peptide 55 pg/mL (<100)
[2023-12-23 19:25] LABS: Troponin-I High Sensitivity 5.4 ng/L (<3.5-35.0)
[2023-12-23 19:29] LABS: Acetaminophen LAB < 3 mcg/mL (<30); Salicylate < 5.0 mg/dL (15-30)
[2023-12-23 20:32] VITALS: BP 125/84; PULSE 60; RESP 13; TEMP 36.8; O2SAT 98
[2023-12-23 22:16] LABS: Amphetamine Screen Urine Not Detected (Not Detect); Barbiturates, Urine Not Detected (Not Detect); Benzodiazepines Screen Urine Not Detected (Not Detect); Buprenorphine Scr Positive (Not Detect); Cannabinoid Screen Urine POSITIVE (Not Detect); Cocaine Screen Urine Not Detected (Not Detect); Fentanyl, urine Not Detected (Not Detect); Methadone Screen, Urine Not Detected (Not Detect); Opiate Screen Urine Not Detected (Not Detect); Oxycodone Screen Urine Not Detected (Not Detect); Phencyclidine Screen Urine Not Detected (Not Detect)
[2023-12-23 22:30] VITALS: BP 130/82; PULSE 55; RESP 12; TEMP 36.6; O2SAT 97
[2023-12-24 00:28] VITALS: BP 120/80; PULSE 57; RESP 16; TEMP 36.9; O2SAT 99
--- NOTE | 2023-12-24 02:43 | PC.NURSE ---
Pt a&o, no signs of distress. Pt resting in bed comfortably. Sitter remains with pt Plan of care ongoing.
[2023-12-24 06:00] VITALS: BP 113/77; PULSE 56; RESP 16; TEMP 36.3; O2SAT 96
--- NOTE | 2023-12-24 07:00 | PC.NURSE ---
Report taken from Siena Cano RN
[2023-12-24 09:55] VITALS: BP 112/83; PULSE 60; RESP 16; TEMP 36.8; O2SAT 96
[2023-12-24] MEDS: Buprenorphine/Naloxone 8/2 mg FILM 1 FILM BUCCAL (10:10)
[2023-12-24] MEDS: Apixaban 5 MG TABLET PO ×2 (10:10→20:03)
--- NOTE | 2023-12-24 10:29 | PC.NURSE ---
this nurse took over patient care from trina at 9am, pt a&ox3, 1:1 sitter, pt states he is homeless, has thoughts of SI but does not divulge a plan to this nurse, pts med req was performed by this nurse and provider ordered medications. vitals are stable, rr equal non labored, call disla within reach, pt awaiting care team, will continue plan of care.
--- NOTE | 2023-12-24 13:34 | PHA.MEDREC ---
Addendum entered by Ernestina Paul RPh 12/24/23 13:44: Reviewed by [facility] Original Note: Pharmacy Consult ? Medication Reconciliation Pharmacy has completed the medication reconciliation. spoke with patient to confirm medications. He takes hydroxyzine 1/2 tab BID prn. He takes a 1/2 tab of metoprolol BID and holds for low HR and BP. His melatonin and lorazepam are prn. He does not take famotidine or use the ventolin.
--- NOTE | 2023-12-24 16:08 | MHC.CARE ---
pt is [facility] bedsearch. Referral faxed to [facility]. T/W contacted [facility] to confirm receipt and activate referral at [id number], spoke with Flaca.
[2023-12-24] MEDS: LORazepam 1 MG TABLET PO (16:48)
--- NOTE | 2023-12-24 17:04 | PC.NURSE ---
pt medicated with ativan for anxiety per his request
[2023-12-24 18:15] VITALS: BP 125/90; PULSE 58; RESP 16; TEMP 37.1; O2SAT 98
[2023-12-24 19:14] VITALS: BP 139/84; PULSE 58; RESP 15; TEMP 36.7; O2SAT 96
--- NOTE | 2023-12-24 19:15 | PC.NURSE ---
this rn assumed care of pt. pt a&ox4, respirations even and unlabored, vss.
[2023-12-24] MEDS: Melatonin 3 MG TABLET 9 MG PO (20:07)
--- NOTE | 2023-12-24 20:07 | PC.NURSE ---
at this time, pt medicated per may. pt refused saboxone, reports it is too late for the medication.
[2023-12-25 06:00] VITALS: BP 138/78; PULSE 55; RESP 18; TEMP 36.6; O2SAT 98
--- NOTE | 2023-12-25 06:42 | PC.NURSE ---
pt noted to not receive breakfast tray, cafeteria called to request tray.
[2023-12-25] MEDS: Buprenorphine/Naloxone 8/2 mg FILM 1 FILM BUCCAL (07:27)
--- NOTE | 2023-12-25 07:40 | PC.NURSE ---
pt is currently resting calmly in the stretcher, respirations even and unlabored, pt reports that i just want to curly up in the ball and not get up , pt denies hi, pt states lots of health issues in the last couple of years and is just fed up with not getting answers why he is not feeling well, life stresses at home. pt is also requesting his hydroxyzine which according to his pharmacy the pt has been taking it, instead of ativan-spoke to Yumiko Leroy about the pt's request
[2023-12-25 08:17] VITALS: BP 111/75; PULSE 63; RESP 18; TEMP 37.1; O2SAT 95
[2023-12-25] MEDS: Apixaban 5 MG TABLET PO (08:18)
[2023-12-25] MEDS: hydrOXYzine HCL 25 MG TABLET PO (08:18)
--- NOTE | 2023-12-25 09:20 | MHC.CARE ---
Pt remains an [facility] bedsearch
--- NOTE | 2023-12-25 10:00 | PC.NURSE ---
attempted to call the number that Sharron Aguillon provided to call report for a nurse to nurse [phone] but the number is not in service
--- NOTE | 2023-12-25 10:50 | PC.NURSE ---
report given to Terrance Aguillon at [facility] pt is being transported by lift around 1300, that care team is arranging
[2023-12-25] MEDS: LORazepam 1 MG TABLET PO (12:40)
[2023-12-25 12:42] VITALS: BP 139/91; PULSE 58; RESP 16; TEMP 37; O2SAT 97
--- NOTE | 2023-12-25 12:42 | PC.NURSE ---
adriane jules gave this rn verbal ok to administer the ativan PO earlier
[2023-12-25 12:51] VITALS: BP 139/91; PULSE 58; RESP 16; TEMP 37; O2SAT 97
== END 2023-12-25 12:52 ==
PROVIDERS: Physician Assistant; Emergency Provider Emergency Medicine
DX: R07.9 Chest pain, unspecified (principal); F32.A Depression, unspecified; R60.0 Localized edema; R05.9 Cough, unspecified; F11.20 Opioid dependence, uncomplicated; Z86.718 Personal history of other venous thrombosis and embolism; Z79.01 Long term (current) use of anticoagulants; Z79.899 Other long term (current) drug therapy
CPT/HCPCS: 36415; 71046; 80053; 80143; 80179; 80307; 83690; 83880; 84484; 85025; 85610; 93005; 99285; S9485

== ENCOUNTER → 2023-12-23 17:53 | Outpatient (BNV) | payer MEDICAID, SELFPAY | PROVIDERS: Emergency Provider Emergency Medicine; Visit Provider Internal Medicine Cardiovascular Disease | DX: R07.9 Chest pain, unspecified (principal) | CPT/HCPCS: 93010 ==

== ENCOUNTER 2023-12-27 20:22 | Emergency (ER) | payer MEDICAID, SELFPAY ==
--- NOTE | ~2023-12-27 | CT_ITS ---
EXAMINATION: CT ANGIOGRAM OF THE CHEST WITH AND WITHOUT CONTRAST (CT PULMONARY ANGIOGRAM FOR PE) CLINICAL INFORMATION: chest pain COMPARISON: No pertinent prior studies are available for comparison. TECHNIQUE: Prior to contrast administration, noncontrast localization images were obtained. Subsequently, multidetector volumetric imaging was performed from the thoracic inlet to the pubic symphysis through the chest, abdomen, and pelvis following the administration of 65 mL Omnipaque 350 intravenous contrast. No contrast reaction reported Sagittal, coronal, and MIP oblique sagittal (through the chest only) reformatted images were obtained on the CT workstation, uploaded to PACS, and reviewed. This CT examination was performed using dose optimization techniques as appropriate, variously including the following: *Automated exposure control *Adjustment of mA and/or kV according to patient size (this includes techniques or standardized protocols for targeted exams where dose is matched to indication/reason for exam; i.e. extremities or head) *Use of iterative reconstruction technique Total exam dose-length product: 320 mGy-cm FINDINGS: QUALITY OF STUDY/CONTRAST BOLUS: Satisfactory. PULMONARY ARTERIES: No central or segmental pulmonary emboli. CORONARY ARTERY CALCIUM: None seen THORACIC AORTA: No aneurysm or dissection. LUNG: A strand of mucus is present in the trachea. No focal consolidation, nodules or masses. Bibasilar atelectasis is present. PLEURA: No pleural effusion or pneumothorax. MEDIASTINUM: Normal heart size. No pericardial effusion. No hilar or mediastinal lymphadenopathy. No evidence of septal bowing or right heart strain. CHEST WALL/AXILLA: No axillary or internal mammary lymphadenopathy. OSSEOUS STRUCTURES: No acute or suspicious osseous abnormality. VISUALIZED ABDOMEN: No significant findings in the upper abdomen. A few splenules are present. CT/CT angio chest PE protocol IMPRESSION: No evidence of pulmonary emboli. VTE: negative. Fleischner guidelines were followed. Electronically signed by: Yunior Khan MD 12/28/2023 12:29 AM EDT
--- NOTE | 2023-12-27 20:25 | ECG_ITS ---
Test Reason : ARRYTHMIA Blood Pressure : / mmHG Vent. Rate : 054 BPM Atrial Rate : 054 BPM P-R Int : 160 ms QRS Dur : 092 ms QT Int : 438 ms P-R-T Axes : 043 -04 041 degrees QTc Int : 415 ms Artifact in tracing Sinus bradycardia Otherwise normal ECG When compared with ECG of 23-DEC-2023 17:50, No significant change was found Referred By: Generic ED Physician Electronically Signed By:DAVID RAMESH
[2023-12-27 20:31] VITALS: BP 154/104; PULSE 61; O2SAT 98
[2023-12-27 20:32] VITALS: BP 111/80; PULSE 56; RESP 24; TEMP 36.8; O2SAT 95; BMI 27.9
[2023-12-27 20:46] VITALS: BP 122/90; PULSE 55; RESP 18; TEMP 36.9; O2SAT 97
--- NOTE | 2023-12-27 20:49 | ECG_ITS ---
Test Reason : CHEST PAIN Blood Pressure : / mmHG Vent. Rate : 061 BPM Atrial Rate : 061 BPM P-R Int : 144 ms QRS Dur : 096 ms QT Int : 420 ms P-R-T Axes : 050 014 049 degrees QTc Int : 422 ms Normal sinus rhythm Normal ECG When compared with ECG of 27-DEC-2023 20:32, No significant change was found Referred By: Bradley Randle Electronically Signed By:DAVID RAMESH
[2023-12-27 21:07] LABS: MANUAL DIFF FLAG NO
[2023-12-27 21:08] LABS: Basophils Absolute Auto 0.1 X10*3/uL (0.0-0.2); Basophils Percent Auto 0.8 % (0-2); Eosinophils Absolute Auto 0.1 X10*3/uL (0.0-0.4); Eosinophils Percent Auto 1.7 % (0-4); Hematocrit 43.7 % (42.0-52.0); Hemoglobin 14.8 g/dl (14.0-18.0); Imm Gran Abs Auto 0.01 X10*3/uL (0.00-0.03); Imm Gran Pct Auto 0.2 % (0.0-0.4); Lymphocytes Absolute Auto 1.7 X10*3/uL (1.2-4.9); Lymphocytes Percent Auto 25.9 % (20-40); Mean Corpuscular HGB Conc 33.9 g/dl (31.0-36.0); Mean Corpuscular Hemoglobin 31.5 pg (27.0-33.0); Mean Platelet Volume 9.2 fL (9.4-12.4); Monocytes Absolute Auto 0.8 X10*3/uL (0.1-1.2); Monocytes Percent Auto 12.6 % (2-11); Neutrophils Absolute Auto 3.8 x10*3/uL (2.0-8.3); Neutrophils Percent Auto 58.8 % (45-73); Platelet Count 342 X10*3/uL (160-400); White Blood Count 6.4 X10*3/uL (4.8-10.8)
[2023-12-27 21:27] LABS: Alanine Aminotransferase 43 U/L (0-40); Albumin Level 4.1 g/dL (3.5-5.0); Alkaline Phosphatase 68 U/L (39-117); Anion Gap 11 (12-20); Aspartate Amino Transferase 25 U/L (5-37); Bilirubin Total 0.4 mg/dL (0.0-1.0); Blood Urea Nitrogen 13 mg/dL (9-16); Calcium 9.2 mg/dL (8.4-10.2); Carbon Dioxide 26 mmol/L (22-29); Chloride 107 mmol/L (96-108); Creatinine Clr Calc Pharmacy 109.3; Estimated Glomerular Filt Rate > 60; Glucose Random 102 mg/dL (60-115); Magnesium 2.2 mg/dL (1.6-2.6); Potassium 4.2 mmol/L (3.3-5.1); Sodium 140 mmol/L (135-145); Total Protein 6.8 g/dL (6.5-8.0)
[2023-12-27 21:34] LABS: Troponin-I High Sensitivity < 2.7 ng/L (<3.5-35.0)
[2023-12-27 21:48] LABS: TSH reflex Free T4 0.94 uIU/mL (0.32-4.0)
[2023-12-27] MEDS: iohexoL 350 MG/ML 100 ML INFUS..BTL IV (22:07)
[2023-12-27 22:09] LABS: D Dimer High Sensitivity < 150 NG/ML
[2023-12-27 22:53] LABS: Amphetamine Screen Urine Not Detected (Not Detect); Barbiturates, Urine Not Detected (Not Detect); Benzodiazepines Screen Urine Not Detected (Not Detect); Buprenorphine Scr Positive (Not Detect); Cannabinoid Screen Urine POSITIVE (Not Detect); Cocaine Screen Urine Not Detected (Not Detect); Fentanyl, urine Not Detected (Not Detect); Methadone Screen, Urine Not Detected (Not Detect); Opiate Screen Urine Not Detected (Not Detect); Oxycodone Screen Urine Not Detected (Not Detect); Phencyclidine Screen Urine Not Detected (Not Detect)
[2023-12-27 22:56] LABS: INTERNATIONAL NORM RATIO 1.1 (0.9-1.1); Prothrombin Time 12.9 SEC (10.9-12.4)
[2023-12-27 22:58] LABS: Partial Thromboplastin Time 30.6 SEC (26.0-36.8)
--- NOTE | 2023-12-27 23:04 | ED.GENADULT ---
HPI - General Adult General Chief complaint: Arrhythmia/Palpitations Stated complaint: chest pain w/ palpitations x3 days Time Seen by Provider: 12/27/23 20:42 History of Present Illness ED Provider: Jer KLINE narrative: 53-year-old male with past medical history of PE on anticoagulation, depression, substance use presenting for palpitations and chest pain. Patient states that symptoms started earlier tonight with palpitations and right-sided chest pain radiating down his right arm. He states that this feels similar to when he was diagnosed with a pulmonary embolism. He does endorse mild shortness of breath. Patient was given 324 of aspirin by EMS. Related Data Home Medications ?Medication ?Instructions ?Recorded ?Confirmed apixaban 5 mg tablet (Eliquis) 5 mg PO BID 11/22/23 12/24/23 lorazepam 1 mg tablet 1 mg PO DAILY PRN Anxiety 11/22/23 12/24/23 melatonin 10 mg tablet 10 mg PO BEDTIME PRN Sleep 11/22/23 12/24/23 metoprolol tartrate 25 mg tablet 12.5 mg PO BID 11/22/23 12/24/23 hydroxyzine HCl 50 mg tablet 25 mg PO BID PRN anxiety 12/24/23 12/24/23 Previous Rx's ?Medication ?Instructions ?Recorded buprenorphine 8 mg-naloxone 2 mg 1 film buccal BID #16 ea 12/18/23 sublingual film (Suboxone) Allergies Allergy/AdvReac Type Severity Reaction Status Date / Time No Known Allergies Allergy Verified 12/27/23 20:34 Review of Systems Review of Systems: Patient endorses chest pain, shortness of breath, right arm pain, palpitation Yes all other systems are reviewed and are negative [facility] Social History Social History Household Members: None Housing: Homeless Do you presently have visiting nurse or other home services: No Alcohol intake: current Alcohol intake frequency: a few times a week Alcohol type: hard liquor Patient Tobacco Use Status: Former Tobacco user Smoked in Last 30 Days: No Substance Use Type: Amphetamines, 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/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 Palliative Care Drugs, Crack/Cocaine, Heroin, Marijuana, Methamphetamine, Painkillers and Prescription Drugs Substance Use Frequency: Chronic Longstanding Last Used Substance: Weeks (ago) Any prior treatment program specific to substance use: Yes Advance Directives: No Advance Directives Information Provided: No service: No Sexual orientation: Straight/Heterosexual Physical Exam ED Vital Signs: Vital Signs - 24 hr 12/27/23 20:32 12/27/23 20:46 12/27/23 23:33 Temperature 98.2 F 98.4 F 97.8 F Pulse Rate 56 55 79 Respiratory Rate 24 H 18 16 Blood Pressure 111/80 122/90 H 101/66 Pulse Oximetry 95 97 98 Oxygen Delivery Method Room Air Room Air Room Air BMI result Body Mass Index 27.9 Lungs clear to auscultation bilaterally; unlabored breathing; normal S1-S2 regular rate and rhythm Right-sided chest wall tenderness to palpation Abdomen is soft nontender nondistended No focal neurologic deficits appreciated Medications Administered Discontinued Medications Generic Name Dose Route Start Last Admin Trade Name Freq PRN Reason Stop Dose Admin Iohexol 100 ml 12/27/23 22:06 12/27/23 22:07 Iohexol 350 Mg/Ml 100 Ml Infus..Btl IV 12/27/23 22:07 65 ml ONCE ONE Administration Medical Decision Making Medical Decision Making [facility] Narrative: This is a 53-year-old male presenting for chest pain and palpitations. I am concerned for the following; ACS, PE, costochondritis, pneumothorax, pneumonia, muscular pain, arrhythmia - I considered dissection however patient has normal vitals and I think that this diagnosis less likely. Should his clinical status deteriorates or remain unchanged I will reconsider - labs and imaging studies ordered - no signs of ischemia on EKG - lab work notable for stable H&H, 2 negative troponins, electrolytes are within normal limits, normal creatinine - I do not appreciate filling defect on patient's CTA a radiology patient is negative for PE - this point patient's workup was unremarkable and I do not think that he is experiencing ACS and he does not have a pulmonary embolism - on reassessment patient reports he is no longer experiencing chest pain or shortness of breath - patient discharged back to facility with instructions to follow up with his PCP and return precautions Lab Data 12/27/23 21:04 12/27/23 21:04 Labs: Lab Results 12/27/23 12/27/23 12/27/23 Range/Units 21:04 21:30 22:36 WBC 6.4 (4.8-10.8) X10*3/uL RBC 4.70 (4.60-5.80) X10*6/uL Hgb 14.8 (14.0-18.0) g/dl Hct 43.7 (42.0-52.0) % MCV 93.0 (80.0-98.0) fL MCH 31.5 (27.0-33.0) pg MCHC 33.9 (31.0-36.0) g/dl RDW 12.0 (11.0-16.0) % Plt Count 342 (160-400) X10*3/uL MPV 9.2 L (9.4-12.4) fL Immature Gran % (Auto) 0.2 (0.0-0.4) % Neut % (Auto) 58.8 (45-73) % Lymph % (Auto) 25.9 (20-40) % [place] % (Auto) 12.6 H (2-11) % Eos % (Auto) 1.7 (0-4) % Baso % (Auto) 0.8 (0-2) % Lymph # (Auto) 1.7 (1.2-4.9) X10*3/uL [place] # (Auto) 0.8 (0.1-1.2) X10*3/uL Eos # (Auto) 0.1 (0.0-0.4) X10*3/uL Baso # (Auto) 0.1 (0.0-0.2) X10*3/uL Abs Immat Gran (auto) 0.01 (0.00-0.03) X10*3/uL Absolute Neuts (auto) 3.8 (2.0-8.3) x10*3/uL Absolute Nucleated RBC 0.000 (0.0-0.012) X10*3/uL Nucleated RBC % (auto) 0.0 (0.0-0.2) /100WBC PT 12.9 H (10.9-12.4) SEC INR 1.1 (0.9-1.1) APTT 30.6 (26.0-36.8) SEC D-Dimer High Sensitivty < 150 NG/ML Sodium 140 (135-145) mmol/L Potassium 4.2 (3.3-5.1) mmol/L Chloride 107 (96-108) mmol/L Carbon Dioxide 26 (22-29) mmol/L Anion Gap 11 L (12-20) BUN 13 (9-16) mg/dL Creatinine 0.90 (0.5-1.4) mg/dL Estim Creat Clear Calc 109.3 Estimated GFR > 60 Random Glucose 102 (60-115) mg/dL Calcium 9.2 D (8.4-10.2) mg/dL Magnesium 2.2 (1.6-2.6) mg/dL Total Bilirubin 0.4 (0.0-1.0) mg/dL AST 25 (5-37) U/L ALT 43 H (0-40) U/L Alkaline Phosphatase 68 (39-117) U/L Troponin I High Sens < 2.7 (<3.5-35.0) ng/L Total Protein 6.8 (6.5-8.0) g/dL Albumin 4.1 (3.5-5.0) g/dL TSH 0.94 (0.32-4.0) uIU/mL Urine Opiates Screen Not Detected (Not Detect) Ur Buprenorphine Scrn Positive H (Not Detect) ng/mL Ur Oxycodone Screen Not Detected (Not Detect) ng/mL Urine Methadone Screen Not Detected (Not Detect) ng/mL Urine Fentanyl Screen Not Detected (Not Detect) Ur Barbiturates Screen Not Detected (Not Detect) Ur Phencyclidine Scrn Not Detected (Not Detect) Ur Amphetamines Screen Not Detected (Not Detect) U Benzodiazepines Scrn Not Detected (Not Detect) Urine Cocaine Screen Not Detected (Not Detect) U Marijuana (THC) Screen POSITIVE H (Not Detect) 12/27/23 Range/Units 23:20 WBC (4.8-10.8) X10*3/uL RBC (4.60-5.80) X10*6/uL Hgb (14.0-18.0) g/dl Hct (42.0-52.0) % MCV (80.0-98.0) fL MCH (27.0-33.0) pg MCHC (31.0-36.0) g/dl RDW (11.0-16.0) % Plt Count (160-400) X10*3/uL MPV (9.4-12.4) fL Immature Gran % (Auto) (0.0-0.4) % Neut % (Auto) (45-73) % Lymph % (Auto) (20-40) % [place] % (Auto) (2-11) % Eos % (Auto) (0-4) % Baso % (Auto) (0-2) % Lymph # (Auto) (1.2-4.9) X10*3/uL [place] # (Auto) (0.1-1.2) X10*3/uL Eos # (Auto) (0.0-0.4) X10*3/uL Baso # (Auto) (0.0-0.2) X10*3/uL Abs Immat Gran (auto) (0.00-0.03) X10*3/uL Absolute Neuts (auto) (2.0-8.3) x10*3/uL Absolute Nucleated RBC (0.0-0.012) X10*3/uL Nucleated RBC % (auto) (0.0-0.2) /100WBC PT (10.9-12.4) SEC INR (0.9-1.1) APTT (26.0-36.8) SEC D-Dimer High Sensitivty NG/ML Sodium (135-145) mmol/L Potassium (3.3-5.1) mmol/L Chloride (96-108) mmol/L Carbon Dioxide (22-29) mmol/L Anion Gap (12-20) BUN (9-16) mg/dL Creatinine (0.5-1.4) mg/dL Estim Creat Clear Calc Estimated GFR Random Glucose (60-115) mg/dL Calcium (8.4-10.2) mg/dL Magnesium (1.6-2.6) mg/dL Total Bilirubin (0.0-1.0) mg/dL AST (5-37) U/L ALT (0-40) U/L Alkaline Phosphatase (39-117) U/L Troponin I High Sens < 2.7 (<3.5-35.0) ng/L Total Protein (6.5-8.0) g/dL Albumin (3.5-5.0) g/dL TSH (0.32-4.0) uIU/mL Urine Opiates Screen (Not Detect) Ur Buprenorphine Scrn (Not Detect) ng/mL Ur Oxycodone Screen (Not Detect) ng/mL Urine Methadone Screen (Not Detect) ng/mL Urine Fentanyl Screen (Not Detect) Ur Barbiturates Screen (Not Detect) Ur Phencyclidine Scrn (Not Detect) Ur Amphetamines Screen (Not Detect) U Benzodiazepines Scrn (Not Detect) Urine Cocaine Screen (Not Detect) U Marijuana (THC) Screen (Not Detect) Discharge Plan Discharge Clinical Impression: Chest pain Patient Disposition: Xfer Inpatient Rehab Fac Additional Instructions: Please return to the emergency department if you develop any new or worsening symptoms Please follow up with the primary care provider in the next 24-48 hours Prescriptions: No Action lorazepam 1 mg tablet 1 mg PO DAILY PRN (Reason: Anxiety) metoprolol tartrate 25 mg tablet 12.5 mg PO BID Protocol: Hold for HR <: HOLD for HR < : 60 Rx Instructions: holds for low hr <65 and low bp Eliquis 5 mg tablet 5 mg PO BID melatonin 10 mg Tablet 10 mg PO BEDTIME PRN (Reason: Sleep) hydroxyzine HCl 50 mg tablet 25 mg PO BID PRN (Reason: anxiety) buprenorphine-naloxone [Suboxone] 8-2 mg film 1 film buccal BID Qty: 16 0RF Print Language: Belarusian
[2023-12-27 23:33] VITALS: BP 101/66; PULSE 79; RESP 16; TEMP 36.6; O2SAT 98
[2023-12-27 23:54] LABS: Troponin-I High Sensitivity < 2.7 ng/L (<3.5-35.0)
[2023-12-28 01:08] VITALS: BP 104/71; PULSE 50; RESP 13; TEMP 36.8; O2SAT 96
== END 2023-12-28 01:48 ==
PROVIDERS: Emergency Provider Student in an Organized Health Care Education/Training Program; PCP Family Medicine
DX: R07.9 Chest pain, unspecified (principal); R06.02 Shortness of breath; F33.1 Major depressive disorder, recurrent, moderate; F41.9 Anxiety disorder, unspecified; F11.20 Opioid dependence, uncomplicated; F14.10 Cocaine abuse, uncomplicated; Z87.891 Personal history of nicotine dependence; Z79.01 Long term (current) use of anticoagulants; Z79.899 Other long term (current) drug therapy
CPT/HCPCS: 36415; 71275; 80053; 80307; 83735; 84443; 84484; 85025; 85379; 85610; 85730; 93005; 99285; Q9967

== ENCOUNTER → 2023-12-27 20:25 | Outpatient (BNV) | payer MEDICAID, SELFPAY | PROVIDERS: Emergency Provider Student in an Organized Health Care Education/Training Program; PCP Family Medicine; Visit Provider Internal Medicine | DX: R00.1 Bradycardia, unspecified (principal) | CPT/HCPCS: 93010 ==

== ENCOUNTER 2023-12-30 08:18 | Inpatient (IN) | payer MEDICAID, OTHER, SELFPAY ==
--- NOTE | 2023-12-30 | ECG_ITS ---
Test Reason : CHECK PROLONG QT Blood Pressure : / mmHG Vent. Rate : 054 BPM Atrial Rate : 054 BPM P-R Int : 158 ms QRS Dur : 094 ms QT Int : 450 ms P-R-T Axes : 067 011 036 degrees QTc Int : 426 ms Sinus bradycardia Otherwise normal ECG When compared with ECG of 30-DEC-2023 08:16, No significant change was found Referred By: Adrian Ness Electronically Signed By:DAVID RAMESH
--- NOTE | 2023-12-30 | ECG_ITS ---
Test Reason : CP Blood Pressure : / mmHG Vent. Rate : 059 BPM Atrial Rate : 059 BPM P-R Int : 150 ms QRS Dur : 094 ms QT Int : 418 ms P-R-T Axes : 061 024 043 degrees QTc Int : 413 ms Sinus bradycardia Otherwise normal ECG No significant changes when compared with the previous EKG of 27 dec 2023 Referred By: Adrian Ness Electronically Signed By:DAVID RAMESH
--- NOTE | ~2023-12-30 | CT_ITS ---
EXAMINATION: CT ABDOMEN AND PELVIS WITHOUT CONTRAST CLINICAL INFORMATION: Abdominal pain. COMPARISON: CT abdomen/pelvis 05/17/2023. TECHNIQUE: Multidetector volumetric imaging was performed from the superior aspect of the liver through the pubic symphysis. Sagittal and coronal reformatted images were obtained on the technologist's workstation. This CT examination was performed using dose optimization techniques as appropriate, variously including the following: *Automated exposure control *Adjustment of mA and/or kV according to patient size (this includes techniques or standardized protocols for targeted exams where dose is matched to indication/reason for exam; i.e. extremities or head) *Use of iterative reconstruction technique DLP: 572 mGy-cm FINDINGS: The lack of intravenous contrast limits evaluation of the solid visceral organs including the liver, spleen, pancreas, and kidneys. LUNG BASES: Increased dependent bibasilar platelike opacities suggesting subsegmental atelectasis or scarring. Partially seen cardiomegaly and trace amount of pericardial fluid, similar to prior. Unchanged mild asymmetric elevation of the left hemidiaphragm. LIVER, GALLBLADDER, AND BILIARY TREE: The liver is normal in size, shape, and attenuation. No focal hepatic lesion or biliary ductal dilatation is present. The gallbladder is unremarkable with no evidence of radiopaque gallstones, gallbladder wall thickening, or obvious pericholecystic inflammatory changes. PANCREAS: Unremarkable. SPLEEN: Stable partially calcified nodule anterior to the spleen measuring 1.5 cm (3:8) and an additional noncalcified nodule posterior to the spleen measuring 0.8 cm (3:22), most suggestive of splenules. ADRENAL GLANDS: Unremarkable. 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 Compared to prior, there is increased pelvocaliectasis of this ectopic kidney without significant hydroureter nor obstructive calculi. Mild left-sided hydroureteronephrosis without discrete obstructive calculi. BLADDER: Unremarkable. GASTROINTESTINAL TRACT: Small hiatal hernia. The stomach and the small bowel are nondilated. Normal appendix. A few colonic diverticuli without pericolonic inflammatory changes. Moderate degree of stool content in the colon or rectum. ABDOMINAL WALL: Unchanged small fat-containing bilateral inguinal hernias. LYMPH NODES: No lymphadenopathy. VASCULAR: Scattered atherosclerotic disease. Normal caliber of the abdominal aorta. PELVIC VISCERA: Unremarkable. OSSEOUS STRUCTURES: Stable nonaggressive appearing lucent osseous lesions in the right iliac bone, for example image [address]/CT abdomen pelvis wo IV con IMPRESSION: 1. 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 New mild left-sided hydroureteronephrosis without discrete obstructive calculi. Recommend short-term follow-up with ultrasound. 2. Moderate degree of stool content in the colon and rectum suggesting constipation. 3. Diverticulosis but no evidence of acute diverticulitis. Electronically signed by: Farhana Lin MD 12/31/2023 10:09 AM EDT
--- NOTE | ~2023-12-30 | XR_ITS ---
EXAMINATION: XR CHEST CLINICAL INFORMATION: Chest pain. COMPARISON: CTA chest 12/27/2023. Chest radiograph 12/23/2023. TECHNIQUE: Frontal view of the chest was obtained. FINDINGS: Unchanged cardiomediastinal silhouette. No focal consolidation, pleural effusion or pneumothorax. No acute osseous findings. Visualized upper abdomen is within normal limits. XR/XR chest 1V IMPRESSION: No acute cardiopulmonary findings. Electronically signed by: Farhana Lin MD 12/30/2023 09:21 AM EDT
--- NOTE | ~2023-12-30 | US_ITS ---
EXAMINATION: US ABDOMEN LIMITED CLINICAL INFORMATION: Gallbladder disease. COMPARISON: CT abdomen from 05/17/2023 TECHNIQUE: Real-time imaging of the right upper quadrant abdominal viscera. FINDINGS: GALLBLADDER: No cholelithiasis, wall thickening or pericholecystic fluid. Positive sonographic Walker sign. COMMON BILE DUCT: Normal in caliber measuring 0.4 cm in diameter. FREE FLUID: None. US/US abdomen limited IMPRESSION: Positive Walker sign without sonographic evidence of cholecystitis. Electronically signed by: Carine Peralta MD 12/31/2023 09:56 AM EDT
[2023-12-30 08:23] VITALS: BP 121/87; BP 133/85; PULSE 59; PULSE 92; RESP 18; TEMP 37.2; O2SAT 100; O2SAT 97; BMI 31.7
--- NOTE | 2023-12-30 08:34 | ED_ITS ---
HPI - Chest Pain General Chief Complaint: Chest Pain Stated Complaint: NAUSEA,VOMITING,UPPER ABD PAIN RAD UP TO CHEST Time Seen by Provider: 12/30/23 08:33 Source: patient and EMS Mode of arrival: EMS Limitations: no limitations History of Present Illness ED Provider: Maya Corado PA-C HPI narrative: 53-year-old male with history of anxiety/depression, polstubstance use disorder, ETOH use disorder now sober x7 months, history of afib, history of PE on eliquis, who presents to the ER from [facility] via EMS for evaluation of 4 days of chest pains and palpitations along with abdominal pain. He states the pain starts in his abdomen and radiates up into the chest. It is associated with nausea and vomiting x3 today. He reports feeling like his heart is hiccuping and has a large single palpitation in the chest. He reports the chest pains are intermittent and radiate down both arms and he feels a tingling sensation and flushing sensation throughout his upper body. Seen here twice in the last week for chest pains and had negative CTA three days ago. He presents from [facility] respite. He states he will not go back there. He states he is still suicidal with a plan to either overdose or run into traffic. He is homeless and lost his job. MD complaint: chest pain Pertinent past history: other (afib, PE) Onset (ago): day(s) Timing of current episode: episodic Prior episodes: Yes Onset: during rest Pain location: left chest and right chest Pain radiation: right arm, left arm and abdomen Severity: moderate Quality: sharp Exacerbating factors: stress Context: history of DVT/PE Associated symptoms: nausea, vomiting, sense of impending doom and palpitations Treatment prior to arrival: none Related Data Home Medications ?Medication ?Instructions ?Recorded ?Confirmed apixaban 5 mg tablet (Eliquis) 5 mg PO BID 11/22/23 12/30/23 lorazepam 1 mg tablet 1 mg PO DAILY PRN Anxiety 11/22/23 12/30/23 melatonin 10 mg tablet 10 mg PO BEDTIME PRN Sleep 11/22/23 12/24/23 metoprolol tartrate 25 mg tablet 12.5 mg PO BID 11/22/23 12/30/23 hydroxyzine HCl 50 mg tablet 25 mg PO BID PRN anxiety 12/24/23 12/30/23 famotidine 40 mg tablet 40 mg PO BEDTIME 12/30/23 12/30/23 nebivolol 5 mg tablet 5 mg PO DAILY 12/30/23 12/30/23 omeprazole 40 mg capsule,delayed 40 mg PO DAILY 12/30/23 12/30/23 release sertraline 50 mg tablet 50 mg PO DAILY 12/30/23 12/30/23 Previous Rx's ?Medication ?Instructions ?Recorded buprenorphine 8 mg-naloxone 2 mg 1 film buccal BID #16 ea 12/18/23 sublingual film (Suboxone) Allergies Allergy/AdvReac Type Severity Reaction Status Date / Time No Known Allergies Allergy Verified 12/30/23 08:29 Review of Systems 2 Review of Systems: Yes all other systems are reviewed and are negative [facility] Social History Social History Household Members: None Housing: Homeless Do you presently have visiting nurse or other home services: No Alcohol intake: current Alcohol intake frequency: a few times a week Alcohol type: hard liquor Patient Tobacco Use Status: Former Tobacco user Smoked in Last 30 Days: No Use of substances other than those prescribed or required for medical reasons: Yes Substance Use Type: Amphetamines, 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 Oriented X3. Anxious, lying on the bed with the eyes closed Head: normocephalic, atraumatic. Eyes: Pupils equal, round and reactive to light. ENT: Pharynx normal. No tonsillar swelling or exudate. Neck: Normal inspection. Neck supple. CVS: Bradycardic with heart rates in the high 50s, regular rhythm, no appreciated murmur Pulses normal. Respiratory: No respiratory distress. Breath sounds normal. Abdomen: Soft and nontender. +BS x4 Skin: Skin warm and dry. Normal skin color. Normal skin turgor. No rashes. Extremities: No lower extremity edema. No joint swelling. Neuro/psych: Oriented X 3. No motor deficit. No sensory deficit. CN II-XII intact. Normal speech and cognition. Depressed, making suicidal statements Course Reevaluation(s) Reevaluation #1: Patient is medically cleared at this time. Cardiac workup was unremarkable. He is feeling better after Ativan. Physician observation started at 11:02. Patient placed in physician observation because patient is awaiting CARE team evaluation for the possible need of inpatient psych admission. At the time observation was started patient's vital signs were stable. Patient is alert and oriented. Neuro exam is non-focal. CV: RRR and lungs are clear. Will continue to monitor. Time: 11:02 Reevaluation #2: Patient seen and evaluated by the care team. He is suicidal with a plan to overdose or run out into traffic. Care team is recommending placement to a dual diagnosis bed. Patient is in agreement. Section 12 in the chart. Will continue to monitor. Time: 11:29 Medications Administered Discontinued Medications Generic Name Dose Route Start Last Admin Trade Name Freq PRN Reason Stop Dose Admin Al Hydroxide/Mg Hydroxide 30 ml 12/30/23 08:40 12/30/23 09:23 Magnesium Hydrox/Alum Hydrox 30 Ml Oral.Susp PO 12/30/23 08:41 30 ml ONCE ONE Administration Belladonna Alkaloids/Phenobarbital 10 ml 12/30/23 08:40 12/30/23 09:23 Phenobarb/Hyoscy/Atropine/Scop 10 Ml Elixir PO 12/30/23 08:41 10 ml ONCE ONE Administration Lidocaine HCl 15 ml 12/30/23 08:40 12/30/23 09:23 Lidocaine Hcl Viscous 2 % 15 Ml Solution MUCOUS MEM 12/30/23 08:41 15 ml ONCE ONE Administration Lorazepam 2 mg 12/30/23 08:41 12/30/23 09:23 Lorazepam 1 Mg Tablet PO 12/30/23 08:42 2 mg ONCE ONE Administration Medical Decision Making Medical Decision Making MDM Narrative: 53-year-old male with history of anxiety/depression, polstubstance use disorder, ETOH use disorder now sober x7 months, history of afib, history of PE on eliquis, who presents to the ER from [facility] via EMS for evaluation of 4 days of chest pains and palpitations along with abdominal pain. Vital signs stable on arrival. Patient is in normal sinus rhythm. He is reporting abdominal pain, chest pain, bilateral arm pain, numbness and tingling. He appears anxious. Lab workup was showing a mild, normocytic anemia. Troponin is negative. EKG without any ischemic changes. Chest x-ray is normal. [place] better after ativan. low suspicion for cardiac etiology. medically cleared. seen by care team who is recommending dual dx bed search. sec 12 in the chart. med rec completed Differential Diagnosis Differential Diagnoses: The differential diagnosis associated with the presentation includes ACS, PE, anxiety, costochondritis, pericarditis, myocarditis, pneumothorax, panic attack Admission/Observation Consideration of admission/observation: Escalation of care including admission/observation considered Consult Healthcare Provider Management of the patient was discussed with: Behavioral Health Provider Lab Data MDM Lab Attestation statement: I reviewed the patient's lab results. Mild stable anemia, negative troponin, no major metabolic derangement 12/30/23 08:43 12/30/23 08:43 Labs: Lab Results 12/30/23 Range/Units 08:43 WBC 5.2 (4.8-10.8) X10*3/uL RBC 4.39 L (4.60-5.80) X10*6/uL Hgb 13.6 L (14.0-18.0) g/dl Hct 41.6 L (42.0-52.0) % MCV 94.8 (80.0-98.0) fL MCH 31.0 (27.0-33.0) pg MCHC 32.7 (31.0-36.0) g/dl RDW 11.9 (11.0-16.0) % Plt Count 339 (160-400) X10*3/uL MPV 9.1 L (9.4-12.4) fL Immature Gran % (Auto) 0.2 (0.0-0.4) % Neut % (Auto) 74.6 H (45-73) % Lymph % (Auto) 16.4 L (20-40) % [place] % (Auto) 8.0 (2-11) % Eos % (Auto) 0.4 (0-4) % Baso % (Auto) 0.4 (0-2) % Lymph # (Auto) 0.9 L (1.2-4.9) X10*3/uL [place] # (Auto) 0.4 (0.1-1.2) X10*3/uL Eos # (Auto) 0.0 (0.0-0.4) X10*3/uL Baso # (Auto) 0.0 (0.0-0.2) X10*3/uL Abs Immat Gran (auto) 0.01 (0.00-0.03) X10*3/uL Absolute Neuts (auto) 3.9 (2.0-8.3) x10*3/uL Absolute Nucleated RBC 0.000 (0.0-0.012) X10*3/uL Nucleated RBC % (auto) 0.0 (0.0-0.2) /100WBC Sodium 140 (135-145) mmol/L Potassium 4.6 (3.3-5.1) mmol/L Chloride 106 (96-108) mmol/L Carbon Dioxide 28 (22-29) mmol/L Anion Gap 11 L (12-20) BUN 19 H (9-16) mg/dL Creatinine 0.86 (0.5-1.4) mg/dL Estim Creat Clear Calc 110.8 Estimated GFR > 60 Random Glucose 115 (60-115) mg/dL Calcium 8.7 (8.4-10.2) mg/dL Magnesium 2.1 (1.6-2.6) mg/dL Total Bilirubin 0.3 (0.0-1.0) mg/dL AST 23 (5-37) U/L ALT 33 (0-40) U/L Alkaline Phosphatase 63 (39-117) U/L Troponin I High Sens < 2.7 (<3.5-35.0) ng/L Total Protein 6.2 L (6.5-8.0) g/dL Albumin 3.7 (3.5-5.0) g/dL Lipase 16 (8-78) U/L Independent Interpretation I performed an independent interpretation of an: EKG and Plain X-Ray Interpretation: EKG was sinus bradycardia, ventricular rate 59 beats per minute, normal UT interval, normal QTC, no ST segment elevations or depressions Chest x-ray is clear without any focal infiltrate or effusion, no pneumothorax Radiology Impression Discussion of test interpretation with radiology: I have reviewed the radiologist's reading. Radiologist Impression: XR/XR chest 1V IMPRESSION: No acute cardiopulmonary findings. Independent Historian Clinical information obtained from an independent historian. History obtained from or confirmed by: EMS External Record Review External record reviewed: Inpatient record, Outpatient record, Prior outpatient labs and Prior outpatient radiology Prescription Management I considered prescription management with: Pain Medication and Other (Anxiolytic) Chronic Conditions Patient?s care impacted by: Other (AFib, PE, anxiety, depression, PTSD, polysubstance use) Social Determinants Patient?s care significantly limited by Social Determinants of Health including: Inadequate housing, Low income, Problems related to primary support group and Other Social Determinant of Health Critical Care Time Critical Care Time Critical Care Time: No Discharge Plan Discharge Clinical Impression: Atypical chest pain, Anxiety disorder, unspecified Patient Disposition: Still a Patient Prescriptions: No Action lorazepam 1 mg tablet 1 mg PO DAILY PRN (Reason: Anxiety) metoprolol tartrate 25 mg tablet 12.5 mg PO BID Protocol: Hold for HR <: HOLD for HR < : 60 Rx Instructions: holds for low hr <65 and low bp Eliquis 5 mg tablet 5 mg PO BID melatonin 10 mg Tablet 10 mg PO BEDTIME PRN (Reason: Sleep) hydroxyzine HCl 50 mg tablet 25 mg PO BID PRN (Reason: anxiety) famotidine 40 mg tablet 40 mg PO BEDTIME omeprazole 40 mg capsule,delayed release(DR/EC) 40 mg PO DAILY sertraline 50 mg tablet 50 mg PO DAILY nebivolol 5 mg tablet 5 mg PO DAILY buprenorphine-naloxone [Suboxone] 8-2 mg film 1 film buccal BID Qty: 16 0RF Print Language: Turkmen
[2023-12-30 08:48] LABS: MANUAL DIFF FLAG NO
[2023-12-30 08:53] LABS: Basophils Percent Auto 0.4 % (0-2); Eosinophils Percent Auto 0.4 % (0-4); Hematocrit 41.6 % (42.0-52.0); Hemoglobin 13.6 g/dl (14.0-18.0); Imm Gran Abs Auto 0.01 X10*3/uL (0.00-0.03); Imm Gran Pct Auto 0.2 % (0.0-0.4); Lymphocytes Absolute Auto 0.9 X10*3/uL (1.2-4.9); Lymphocytes Percent Auto 16.4 % (20-40); Mean Corpuscular HGB Conc 32.7 g/dl (31.0-36.0); Mean Corpuscular Volume 94.8 fL (80.0-98.0); Mean Platelet Volume 9.1 fL (9.4-12.4); Monocytes Absolute Auto 0.4 X10*3/uL (0.1-1.2); Neutrophils Absolute Auto 3.9 x10*3/uL (2.0-8.3); Neutrophils Percent Auto 74.6 % (45-73); Platelet Count 339 X10*3/uL (160-400); Red Blood Count 4.39 X10*6/uL (4.60-5.80); Red Cell Distribution Width 11.9 % (11.0-16.0); White Blood Count 5.2 X10*3/uL (4.8-10.8)
[2023-12-30 09:04] LABS: Alanine Aminotransferase 33 U/L (0-40); Albumin Level 3.7 g/dL (3.5-5.0); Alkaline Phosphatase 63 U/L (39-117); Anion Gap 11 (12-20); Aspartate Amino Transferase 23 U/L (5-37); Bilirubin Total 0.3 mg/dL (0.0-1.0); Blood Urea Nitrogen 19 mg/dL (9-16); Calcium 8.7 mg/dL (8.4-10.2); Carbon Dioxide 28 mmol/L (22-29); Chloride 106 mmol/L (96-108); Creatinine Clr Calc Pharmacy 110.8; Estimated Glomerular Filt Rate > 60; Glucose Random 115 mg/dL (60-115); Lipase 16 U/L (8-78); Magnesium 2.1 mg/dL (1.6-2.6); Potassium 4.6 mmol/L (3.3-5.1); Sodium 140 mmol/L (135-145); Total Protein 6.2 g/dL (6.5-8.0)
[2023-12-30 09:13] LABS: Troponin-I High Sensitivity < 2.7 ng/L (<3.5-35.0)
[2023-12-30 09:16] VITALS: BP 121/80; PULSE 54; RESP 14; O2SAT 97
[2023-12-30] MEDS: PHENobarb/Hyoscy/Atropine/Scop 10 ML ELIXIR PO (09:23)
[2023-12-30] MEDS: LORazepam 1 MG TABLET 2 MG PO (09:23)
[2023-12-30] MEDS: Magnesium Hydrox/Alum Hydrox 30 ML ORAL.SUSP PO (09:23)
[2023-12-30] MEDS: Lidocaine HCl Viscous 2 % 15 ML SOLUTION MUCOUS MEM (09:23)
[2023-12-30 11:43] VITALS: PULSE 84
--- NOTE | 2023-12-30 12:35 | MHC.CARE ---
Pt meets the criteria for IPLOC and will be a DUAL DX bedsearch. Provider in agreement. Pt on a Section 12a
--- NOTE | 2023-12-30 14:14 | PHA.MEDREC ---
Pharmacy Consult ? Medication Reconciliation Pharmacy has completed the medication reconciliation. PHARMACY REVIEWED MED REC DONE BY NURSING. CORRECTIONS MADE USING CLAIM HISTORY AFTER CONVERSATION WITH MERVAT CARLIN.
[2023-12-30] MEDS: Sertraline HCL 50 MG TABLET PO (15:09)
[2023-12-30] MEDS: Buprenorphine/Naloxone 8/2 mg FILM 1 FILM BUCCAL ×2 (15:09→21:16)
[2023-12-30] MEDS: Apixaban 5 MG TABLET PO ×2 (15:09→21:21)
--- NOTE | 2023-12-30 17:43 | PC.NURSE ---
Pt appears to be in no apparent distress, calm and cooperative, aware of plan of care, offers this RN no complaints at this time
[2023-12-30 18:11] VITALS: BP 127/84; PULSE 50; RESP 14; TEMP 36.9; O2SAT 96
[2023-12-30 20:45] VITALS: BP 134/92; PULSE 56; RESP 18; TEMP 36.6; O2SAT 96
[2023-12-30 20:52] VITALS: PULSE 56
[2023-12-30] MEDS: Famotidine 20 MG TABLET 40 MG PO (21:16)
--- NOTE | 2023-12-30 21:52 | PC.NURSE ---
Assumed care of pt at 184. PT a/o, denies pain but reporting slow HR and a flutter- vitals taken HR 56. EKg done at 1848 NSR. Held metoprolol d/t HR. Medicated as per MAY. PT resting quietly at this time. safety check remain in place. 15 minutes continue. Plan of care ongoing
[2023-12-31 06:09] VITALS: BP 128/85; PULSE 57; RESP 16; TEMP 36.8; O2SAT 96
[2023-12-31] MEDS: Omeprazole 40 MG CAPSULE.DR PO (06:54)
--- NOTE | 2023-12-31 07:04 | PC.NURSE ---
Assumed care of patient at 0645, patient appears to be in no apparent distress this am, sitting upright in bed, respirations even and unlabored. Continue plan of care for dual dx bedsearch
[2023-12-31 08:47] VITALS: PULSE 52
[2023-12-31] MEDS: Buprenorphine/Naloxone 8/2 mg FILM 1 FILM BUCCAL ×2 (08:47→16:26)
[2023-12-31] MEDS: Sertraline HCL 50 MG TABLET PO (08:47)
[2023-12-31] MEDS: Apixaban 5 MG TABLET PO ×2 (08:47→20:10)
[2023-12-31] MEDS: hydrOXYzine HCL 50 MG TABLET PO (08:52)
--- NOTE | 2023-12-31 08:58 | PC.NURSE ---
Addendum entered by Noemy Ayala 12/31/23 14:57: Pt received medications per MAR for the abdominal pain, appears to be a bit more comfortable. Continues to endorse shoulder pain at this time Original Note: Pt reporting severe right upper quadrant and mid umbilical pain that radiates to his shoulder. He reports this comes and goes. He also endorses it worsens with fatty foods. This RN is concerned for potentia gallbladder issues that may have been dismissed in the past. MD Ness made aware, no new orders at this time. Pt provided with warm blanket to act as a warm compress for the time being
--- NOTE | 2023-12-31 09:16 | ECG_ITS ---
Test Reason : ABD PAIN Blood Pressure : / mmHG Vent. Rate : 060 BPM Atrial Rate : 060 BPM P-R Int : 160 ms QRS Dur : 100 ms QT Int : 444 ms P-R-T Axes : 051 008 038 degrees QTc Int : 444 ms Normal sinus rhythm Normal ECG When compared with ECG of 30-DEC-2023 18:38, No significant change was found Referred By: Adrian Ness Electronically Signed By:DAVID RAMESH
[2023-12-31 10:05] LABS: MANUAL DIFF FLAG NO
[2023-12-31 10:08] LABS: Basophils Percent Auto 0.6 % (0-2); Eosinophils Percent Auto 0.4 % (0-4); Hematocrit 42.9 % (42.0-52.0); Hemoglobin 14.6 g/dl (14.0-18.0); Imm Gran Abs Auto 0.02 X10*3/uL (0.00-0.03); Imm Gran Pct Auto 0.3 % (0.0-0.4); Lymphocytes Absolute Auto 1.2 X10*3/uL (1.2-4.9); Lymphocytes Percent Auto 17.7 % (20-40); Mean Corpuscular Hemoglobin 31.7 pg (27.0-33.0); Mean Corpuscular Volume 93.3 fL (80.0-98.0); Mean Platelet Volume 9.2 fL (9.4-12.4); Monocytes Absolute Auto 0.5 X10*3/uL (0.1-1.2); Monocytes Percent Auto 6.8 % (2-11); Neutrophils Percent Auto 74.2 % (45-73); Platelet Count 353 X10*3/uL (160-400); Red Cell Distribution Width 11.9 % (11.0-16.0); White Blood Count 6.7 X10*3/uL (4.8-10.8)
[2023-12-31 10:20] LABS: Alanine Aminotransferase 33 U/L (0-40); Albumin Level 4.2 g/dL (3.5-5.0); Alkaline Phosphatase 73 U/L (39-117); Anion Gap 13 (12-20); Aspartate Amino Transferase 21 U/L (5-37); Bilirubin Direct 0.2 mg/dL (0.0-0.5); Bilirubin Total 0.6 mg/dL (0.0-1.0); Blood Urea Nitrogen 16 mg/dL (9-16); Calcium 9.6 mg/dL (8.4-10.2); Carbon Dioxide 28 mmol/L (22-29); Chloride 104 mmol/L (96-108); Creatinine Clr Calc Pharmacy 94.4; Estimated Glomerular Filt Rate > 60; Glucose Random 108 mg/dL (60-115); Lipase 14 U/L (8-78); Potassium 4.6 mmol/L (3.3-5.1); Sodium 140 mmol/L (135-145); Total Protein 7.1 g/dL (6.5-8.0)
[2023-12-31 10:27] LABS: Troponin-I High Sensitivity < 2.7 ng/L (<3.5-35.0)
[2023-12-31] MEDS: Famotidine 20 MG TABLET PO (10:30)
[2023-12-31] MEDS: Magnesium Hydrox/Alum Hydrox 30 ML ORAL.SUSP PO (10:30)
[2023-12-31 18:03] VITALS: PULSE 56; RESP 16; O2SAT 99
--- NOTE | 2023-12-31 19:38 | PC.NURSE ---
patient appears to remain asleep at present respirations are even and unlabored patient appears in no distress.
[2023-12-31 19:52] VITALS: BP 117/77; PULSE 54; RESP 16; TEMP 36.6; O2SAT 96
[2023-12-31] MEDS: Famotidine 20 MG TABLET 40 MG PO (20:11)
[2023-12-31] MEDS: polyethylene glycoL 3350 17 GM POWD.PACK PO (20:46)
[2023-12-31] MEDS: Melatonin 3 MG TABLET 6 MG PO (21:33)
[2024-01-01 05:03] VITALS: BP 124/78; PULSE 55; RESP 18; TEMP 36.5; O2SAT 95
[2024-01-01] MEDS: Sertraline HCL 50 MG TABLET PO (08:16)
[2024-01-01] MEDS: Buprenorphine/Naloxone 8/2 mg FILM 1 FILM BUCCAL ×2 (08:16→14:28)
--- NOTE | 2024-01-01 08:21 | MHC.CARE ---
Rad Team completed an external dual bed search this morning. [facility]go[facility], [facility] and [facility]
[2024-01-01 09:00] LABS: Appearance Urine Clear; Color Urine Yellow; Glucose Urine UA Negative (Negative); Leukocyte Esterase Urine Negative (Negative); Nitrite Urine Negative (Negative); Specific Gravity - Urine 1.015 (1.005-1.025); Urine Blood Negative (Negative); Urine Ketones Negative (Negative); Urine Protein Negative (Neg-Trace)
[2024-01-01] MEDS: Omeprazole 40 MG CAPSULE.DR PO (09:39)
[2024-01-01] MEDS: Apixaban 5 MG TABLET PO ×2 (09:39→20:51)
[2024-01-01] MEDS: polyethylene glycoL 3350 17 GM POWD.PACK PO (10:07)
--- NOTE | 2024-01-01 11:52 | MHC.CARE ---
Pt seen for ongoing assessment and remains dual diagnosis level of care. Section 12 update and placed in chart, ED provider notified of current status and remains in agreement with disposition.
[2024-01-01] MEDS: hydrOXYzine HCL 50 MG TABLET PO (14:30)
[2024-01-01 14:33] LABS: Amphetamine Screen Urine Not Detected (Not Detect); Barbiturates, Urine POSITIVE (Not Detect); Benzodiazepines Screen Urine Not Detected (Not Detect); Buprenorphine Scr Positive (Not Detect); Cannabinoid Screen Urine Not Detected (Not Detect); Cocaine Screen Urine Not Detected (Not Detect); Fentanyl, urine Not Detected (Not Detect); Methadone Screen, Urine Not Detected (Not Detect); Opiate Screen Urine Not Detected (Not Detect); Oxycodone Screen Urine Not Detected (Not Detect); Phencyclidine Screen Urine Not Detected (Not Detect)
--- NOTE | 2024-01-01 14:44 | PC.NURSE ---
pt medicated per provider order. pt requesting prn medication d/t increase in anxiety. prn medication utilized. effectiveness pending.
--- NOTE | 2024-01-01 19:07 | PC.NURSE ---
report received from Betty CROWELL, assume care of pt at this time
[2024-01-01] MEDS: LORazepam 1 MG TABLET PO (19:16)
[2024-01-01] MEDS: Famotidine 20 MG TABLET 40 MG PO (20:42)
[2024-01-01] MEDS: Melatonin 3 MG TABLET 6 MG PO (20:42)
[2024-01-01 23:47] VITALS: BP 120/75; PULSE 57; RESP 16; TEMP 37.5; O2SAT 95
[2024-01-02] MEDS: Omeprazole 40 MG CAPSULE.DR PO (06:42)
[2024-01-02 07:37] VITALS: BP 146/93; PULSE 59; RESP 16; O2SAT 97
[2024-01-02 08:22] VITALS: PULSE 59
[2024-01-02] MEDS: Apixaban 5 MG TABLET PO ×2 (08:22→21:13)
[2024-01-02] MEDS: Sertraline HCL 50 MG TABLET PO (08:22)
[2024-01-02] MEDS: Buprenorphine/Naloxone 8/2 mg FILM 1 FILM BUCCAL ×3 (08:22→21:12)
--- NOTE | 2024-01-02 09:04 | PC.NURSE ---
Assumed care of patient at 0645, patient appears to be in no apparent distress this am, calm and cooperative, reporting concerns about his pancreas this am. He reports that he is very concerned about his Lipase level. this RN informed pt that his lipase level is well within normal limits but MD Abdi is aware of the concerns. Continue plan of care for inpatient bedsearch
[2024-01-02] MEDS: hydrOXYzine HCL 50 MG TABLET PO ×2 (09:31→16:45)
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
[2024-01-02 13:40] VITALS: BP 151/95; PULSE 98; RESP 18; TEMP 36.4; O2SAT 98
[2024-01-02 14:06] VITALS: BMI 30.8
--- NOTE | 2024-01-02 14:42 | PC.ADMIT ---
Nursing admission note: 53 year old male DX: Unspecified depressive disorder, Alcohol use disorder severe, Cocaine use disorder severe. Patient was brought in to [facility] from [facility] with complaint of chest pain. He was medically cleared and referred to CARE team for assessment due to expressed suicidal ideation. Patient engaged easily, calm and cooperative with admission assessment. A+O x4. Patient reports depressed mood with suicidal thoughts, plans, no intent at this time. Reports feeling he is able to maintain safety on unit at this time and will make staff aware if feeling otherwise. Affect is congruent. Thought process is linear and organized. Denies A/V hallucinations, no overt psychosis or expressed delusions. Reports difficulty maintaining sleep. Decreased appetite with 10 lb weight loss in past month. Recent stressors include medical issues that have spiraled out of control. States depression has affected his heart, which has affected his pancreas, gallbladder. . States he can't work and you can't survive if you don't work . Reports he has lost his apartment, transportation and family. Reports feeling helpless, hopeless. TOX screen positive for barbituate and Buprenorphine. Patient is non smoker. Reports he has received Flu vaccine for this season. See nursing assessment, crisis evaluation for complete details. Placed on unit safety checks.
[2024-01-02 20:00] VITALS: BP 136/85; PULSE 55; RESP 16; TEMP 36.4; O2SAT 96
[2024-01-02] MEDS: Famotidine 20 MG TABLET 40 MG PO (21:12)
[2024-01-02] MEDS: LORazepam 1 MG TABLET PO (21:13)
[2024-01-02] MEDS: traZODone HCL 50 MG TABLET PO (21:13)
[2024-01-03] MEDS: Omeprazole 40 MG CAPSULE.DR PO (06:39)
[2024-01-03 08:00] VITALS: BP 126/83; PULSE 53; RESP 16; TEMP 36.6; O2SAT 96
[2024-01-03 08:26] LABS: Alanine Aminotransferase 37 U/L (0-40); Albumin Level 3.6 g/dL (3.5-5.0); Alkaline Phosphatase 72 U/L (39-117); Anion Gap 11 (12-20); Aspartate Amino Transferase 35 U/L (5-37); Bilirubin Total 0.3 mg/dL (0.0-1.0); Blood Urea Nitrogen 18 mg/dL (9-16); Calcium 9.4 mg/dL (8.4-10.2); Carbon Dioxide 31 mmol/L (22-29); Chloride 107 mmol/L (96-108); Cholesterol 213 mg/dL (<200); Estimated Glomerular Filt Rate > 60; Glucose Fasting 101 mg/dL (60-99); HDL Cholesterol 38 mg/dL (>40); LDL Cholesterol Calculated 151 mg/dL (<100); Potassium 5.3 mmol/L (3.3-5.1); Sodium 144 mmol/L (135-145); Total Protein 6.1 g/dL (6.5-8.0); Triglycerides 120 mg/dL (<150)
[2024-01-03] MEDS: Buprenorphine/Naloxone 8/2 mg FILM 1 FILM BUCCAL ×2 (08:49→15:28)
[2024-01-03] MEDS: Sertraline HCL 50 MG TABLET PO (08:49)
[2024-01-03 08:50] VITALS: BP 121/75; PULSE 61
[2024-01-03] MEDS: hydrOXYzine HCL 50 MG TABLET PO (08:54)
[2024-01-03] MEDS: Apixaban 5 MG TABLET PO ×2 (09:05→21:02)
--- NOTE | 2024-01-03 09:40 | HO.PSYCHPN ---
Subjective Subjective Date of Service: 01/03/24 Reason For Visit: crisis Subjective Notes: Conditional Voluntary Interim History: Reviewed with Dr. Valentine. Patient reports feeling okay today; pt stated, I'm really tired today because I was woken up by my room mates and staff last night. I'm hoping to sleep better tonight . Pt denies SI/HI/VH/AH. Keeping to self. Medication Compliance: Yes Side effects from medications: No Attending Groups: Intermittent Review of Systems Constitutional: Reports as per HPI Eyes: Reports as per HPI Reports as per HPI Cardiovascular: Reports as per HPI Respiratory: Reports as per HPI Gastrointestinal: Reports as per HPI Genitourinary: Reports as per HPI Musculoskeletal: Reports as per HPI Skin/Breast: Reports as per HPI Reports as per HPI Psychiatric: Reports as per HPI Endocrine: Reports as per HPI Hematologic/Lymphatic: Reports as per HPI Allergic/Immunologic: Reports as per HPI Mental Status Exam Mental Status Exam Narrative: Pt is alert and oriented; behavior is cooperative and calm; dressed in casual attire; mood is described as depressed ; eye contact appropriate; Speech is normal rate, volume and not pressured; thought process is organized and goal directed; Thought content is on tx; otherwise pertinent to relevant topics and without any delusional content, paranoid ideations or grandiosity; denies SI/HI/AH/VH. Diagnostics Vital Signs (24Hr): Vital Signs - 24 hr 01/02/24 13:40 01/02/24 20:00 01/03/24 08:00 Temperature 97.6 F 97.6 F 97.8 F Pulse Rate 98 55 53 Respiratory Rate 18 16 16 Blood Pressure 151/95 H 136/85 126/83 Pulse Oximetry 98 96 96 Oxygen Delivery Method Room Air Room Air Room Air 01/03/24 08:50 01/03/24 08:50 Temperature Pulse Rate 61 Respiratory Rate Blood Pressure 121/75 Pulse Oximetry Oxygen Delivery Method BMI result Body Mass Index 30.8 Labs 12/31/23 09:59 01/03/24 07:52 Labs: Laboratory Results - last 48 hr 01/01/24 01/03/24 08:51 07:52 Hold Purple Top SEE NOTE Sodium 144 Potassium 5.3 H Chloride 107 Carbon Dioxide 31 H Anion Gap 11 L BUN 18 H Creatinine 0.93 Estim Creat Clear Calc 101.0 Estimated GFR > 60 Fasting Glucose 101 H Calcium 9.4 Total Bilirubin 0.3 AST 35 ALT 37 Alkaline Phosphatase 72 Total Protein 6.1 L Albumin 3.6 Triglycerides 120 Cholesterol 213 H LDL Cholesterol, Calc 151 H HDL Cholesterol 38 L Urine Opiates Screen Not Detected Ur Buprenorphine Scrn Positive H Ur Oxycodone Screen Not Detected Urine Methadone Screen Not Detected Urine Fentanyl Screen Not Detected Ur Barbiturates Screen POSITIVE H Ur Phencyclidine Scrn Not Detected Ur Amphetamines Screen Not Detected U Benzodiazepines Scrn Not Detected Urine Cocaine Screen Not Detected U Marijuana (THC) Screen Not Detected Imaging Radiology Impressions: ITS Impressions Chest X-Ray 12/30/23 08:40 IMPRESSION: No acute cardiopulmonary findings. Electronically signed by: Farhana Lin MD 12/30/2023 09:21 AM EDT Abdomen/Pelvis CT 12/31/23 09:15 IMPRESSION: 1. 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 New mild left-sided hydroureteronephrosis without discrete obstructive calculi. Recommend short-term follow-up with ultrasound. 2. Moderate degree of stool content in the colon and rectum suggesting constipation. 3. Diverticulosis but no evidence of acute diverticulitis. Electronically signed by: Farhana Lin MD 12/31/2023 10:09 AM EDT Abdomen Ultrasound 12/31/23 09:41 IMPRESSION: Positive Walker sign without sonographic evidence of cholecystitis. Electronically signed by: Carine Peralta MD 12/31/2023 09:56 AM EDT Medications Medications Current Medications Acetaminophen (Acetaminophen 325 Mg Tablet) 650 mg PO Q6H PRN PRN Reason: Headache/Pain Mild Scale (1-3) Al Hydroxide/Mg Hydroxide (Magnesium Hydrox/Alum Hydrox 30 Ml Oral.Susp) 30 ml PO Q6H PRN PRN Reason: Heartburn/Nausea Apixaban (Apixaban 5 Mg Tablet) 5 mg PO BID [facility] Last Admin: 01/02/24 21:13 Dose: 5 mg Buprenorphine/Naloxone (Buprenorphine/Naloxone 8/2 Mg Film) 1 film BUCCAL TID [facility] Last Admin: 01/03/24 08:49 Dose: 1 film Famotidine (Famotidine 20 Mg Tablet) 40 mg PO BEDTIME [facility] Last Admin: 01/02/24 21:12 Dose: 40 mg Hydroxyzine HCl (Hydroxyzine Hcl 50 Mg Tablet) 50 mg PO TID PRN PRN Reason: Anxiety Last Admin: 01/03/24 08:54 Dose: 50 mg Hydroxyzine HCl (Hydroxyzine Hcl 25 Mg Tablet) 25 mg PO Q6H PRN PRN Reason: Anxiety Lorazepam (Lorazepam 1 Mg Tablet) 1 mg PO DAILY PRN PRN Reason: Anxiety Last Admin: 01/02/24 21:13 Dose: 1 mg Magnesium Hydroxide (Milk Of Magnesia 30 Ml Oral.Susp) 30 ml PO DAILY PRN PRN Reason: Constipation Melatonin (Melatonin 3 Mg Tablet) 6 mg PO ONCE PRN PRN Reason: Sleep Last Admin: 01/01/24 20:42 Dose: 6 mg Metoprolol Tartrate (Metoprolol Tartrate 25 Mg Tablet) 25 mg PO BID [facility]; Protocol Last Admin: 01/03/24 08:50 Dose: Not Given Nicotine (Nicotine 21 Mg Patch.Td24) 21 mg TRANSDERMA DAILY [facility] Last Admin: 01/03/24 08:55 Dose: Not Given Nicotine Polacrilex (Nicotine Polacrilex 2 Mg Gum) 4 mg BUCCAL Q2H PRN PRN Reason: Nicotine Cravings Non-Formulary Medication (Nebivolol) 5 mg PO DAILY [facility] Omeprazole (Omeprazole 40 Mg Capsule.Dr) 40 mg PO DAILY@0630 [facility] Last Admin: 01/03/24 06:39 Dose: 40 mg Polyethylene Glycol (Polyethylene Glycol 3350 17 Gm Powd.Pack) 17 gm PO DAILY PRN PRN Reason: Constipation Sertraline HCl (Sertraline Hcl 50 Mg Tablet) 50 mg PO DAILY [facility] Last Admin: 01/03/24 08:49 Dose: 50 mg Trazodone HCl (Trazodone Hcl 50 Mg Tablet) 50 mg PO BEDTIME MRX1 PRN PRN Reason: Insomnia Last Admin: 01/02/24 21:13 Dose: 50 mg Allergies Allergies Allergy/AdvReac Type Severity Reaction Status Date / Time No Known Allergies Allergy Verified 12/30/23 08:29 Assessment & Plan Assessment & Plan (1) MDD (major depressive disorder), recurrent episode, moderate: Status: Acute Code(s): F33.1 - Major depressive disorder, recurrent, moderate (2) Opioid use disorder: Status: Acute Code(s): F11.90 - Opioid use, unspecified, uncomplicated (3) Cocaine use disorder: Status: Acute Code(s): F14.10 - Cocaine abuse, uncomplicated Plan Patient is a 53-year-old male with history of MDD, cocaine use disorder who was brought in by ambulance from [facility] complaining of chest pain, which he was medically cleared from and began to report suicidal ideation secondary to increased depression. Plan: CV 15 minutes safety checks Continue home medications Encourage groups Referral to substance abuse program Discharge planning 01/02: Patient reports feeling okay today; pt stated, I'm really tired today because I was woken up by my room mates and staff last night. I'm hoping to sleep better tonight . Pt denies SI/HI/VH/AH. Keeping to self. Continue current tx plan. Patient educated on: diagnosis, medication risk/benefits and therapeutic strategies Reason for continued inpatient stay Substantial Risk for: med/psych decompensation Time Spent With Patient Time: Total time managing care of this patient today _20___ minutes.
[2024-01-03] MEDS: polyethylene glycoL 3350 17 GM POWD.PACK PO (15:31)
[2024-01-03] MEDS: traZODone HCL 50 MG TABLET PO (21:02)
[2024-01-03 21:07] VITALS: BP 128/83; PULSE 59; RESP 16; TEMP 36.9; O2SAT 96
[2024-01-04] MEDS: Omeprazole 40 MG CAPSULE.DR PO (06:35)
[2024-01-04 07:46] VITALS: BP 112/76; PULSE 60; RESP 16; TEMP 36.8; O2SAT 96
[2024-01-04] MEDS: Apixaban 5 MG TABLET PO ×2 (08:37→20:31)
[2024-01-04] MEDS: Sertraline HCL 50 MG TABLET PO (08:37)
[2024-01-04] MEDS: Metoprolol Tartrate 25 MG TABLET PO (08:37)
[2024-01-04] MEDS: Buprenorphine/Naloxone 8/2 mg FILM 1 FILM BUCCAL ×2 (08:38→15:09)
[2024-01-04] MEDS: hydrOXYzine HCL 50 MG TABLET PO ×2 (08:40→20:31)
[2024-01-04] MEDS: polyethylene glycoL 3350 17 GM POWD.PACK PO (09:17)
[2024-01-04] MEDS: LORazepam 1 MG TABLET PO (12:11)
[2024-01-04] MEDS: hydrOXYzine HCL 25 MG TABLET PO (12:11)
--- NOTE | 2024-01-04 14:16 | HO.PSYCHPN ---
Subjective Subjective Date of Service: 01/04/24 Reason For Visit: crisis Interim History: calm, cooperative. no complaints or requests. interested in rehab. aware of h/o hyperkalemia. willing to have repeat labs tomorrow morning and consider more aggressive mgmt then if K continues to be elevated. per staff, calm, guarded, visible at times. 2 groups. no dep. refused suboxone and lopressor last night. Mental Status Exam Mental Status Exam Narrative: Pt is alert and oriented; behavior is cooperative and calm; dressed in casual attire; mood is not assessed; eye contact appropriate; Speech is normal rate, volume and not pressured; thought process is organized and goal directed; Thought content is on tx; otherwise pertinent to relevant topics and without any delusional content, paranoid ideations or grandiosity; no SI/HI/AH/VH expressed. Diagnostics Vital Signs (24Hr): Vital Signs - 24 hr 01/03/24 21:07 01/04/24 07:46 Temperature 98.5 F 98.2 F Pulse Rate 59 60 Respiratory Rate 16 16 Blood Pressure 128/83 112/76 Pulse Oximetry 96 96 Oxygen Delivery Method Room Air Room Air BMI result Body Mass Index 30.8 Labs 12/31/23 09:59 01/03/24 07:52 Labs: Laboratory Results - last 48 hr 01/03/24 07:52 Hold Purple Top SEE NOTE Sodium 144 Potassium 5.3 H Chloride 107 Carbon Dioxide 31 H Anion Gap 11 L BUN 18 H Creatinine 0.93 Estim Creat Clear Calc 101.0 Estimated GFR > 60 Fasting Glucose 101 H Calcium 9.4 Total Bilirubin 0.3 AST 35 ALT 37 Alkaline Phosphatase 72 Total Protein 6.1 L Albumin 3.6 Triglycerides 120 Cholesterol 213 H LDL Cholesterol, Calc 151 H HDL Cholesterol 38 L Imaging Radiology Impressions: ITS Impressions Chest X-Ray 12/30/23 08:40 IMPRESSION: No acute cardiopulmonary findings. Electronically signed by: Farhana Lin MD 12/30/2023 09:21 AM EDT Abdomen/Pelvis CT 12/31/23 09:15 IMPRESSION: 1. 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 New mild left-sided hydroureteronephrosis without discrete obstructive calculi. Recommend short-term follow-up with ultrasound. 2. Moderate degree of stool content in the colon and rectum suggesting constipation. 3. Diverticulosis but no evidence of acute diverticulitis. Electronically signed by: Farhana Lin MD 12/31/2023 10:09 AM EDT RP Abdomen Ultrasound 12/31/23 09:41 IMPRESSION: Positive Walker sign without sonographic evidence of cholecystitis. Electronically signed by: Carine Peralta MD 12/31/2023 09:56 AM EDT RP Medications Medications Current Medications Acetaminophen (Acetaminophen 325 Mg Tablet) 650 mg PO Q6H PRN PRN Reason: Headache/Pain Mild Scale (1-3) Al Hydroxide/Mg Hydroxide (Magnesium Hydrox/Alum Hydrox 30 Ml Oral.Susp) 30 ml PO Q6H PRN PRN Reason: Heartburn/Nausea Apixaban (Apixaban 5 Mg Tablet) 5 mg PO BID [facility] Last Admin: 01/04/24 08:37 Dose: 5 mg Buprenorphine/Naloxone (Buprenorphine/Naloxone 8/2 Mg Film) 1 film BUCCAL TID [facility] Last Admin: 01/04/24 08:38 Dose: 1 film Famotidine (Famotidine 20 Mg Tablet) 40 mg PO BEDTIME [facility] Last Admin: 01/03/24 21:07 Dose: Not Given Hydroxyzine HCl (Hydroxyzine Hcl 50 Mg Tablet) 50 mg PO TID PRN PRN Reason: Anxiety Last Admin: 01/04/24 08:40 Dose: 50 mg Hydroxyzine HCl (Hydroxyzine Hcl 25 Mg Tablet) 25 mg PO Q6H PRN PRN Reason: Anxiety Last Admin: 01/04/24 12:11 Dose: 25 mg Lorazepam (Lorazepam 1 Mg Tablet) 1 mg PO DAILY PRN PRN Reason: Anxiety Last Admin: 01/04/24 12:11 Dose: 1 mg Magnesium Hydroxide (Milk Of Magnesia 30 Ml Oral.Susp) 30 ml PO DAILY PRN PRN Reason: Constipation Melatonin (Melatonin 3 Mg Tablet) 6 mg PO ONCE PRN PRN Reason: Sleep Last Admin: 01/01/24 20:42 Dose: 6 mg Metoprolol Tartrate (Metoprolol Tartrate 25 Mg Tablet) 25 mg PO BID [facility]; Protocol Last Admin: 01/04/24 08:37 Dose: 25 mg Nicotine Polacrilex (Nicotine Polacrilex 2 Mg Gum) 4 mg BUCCAL Q2H PRN PRN Reason: Nicotine Cravings Non-Formulary Medication (Nebivolol) 5 mg PO DAILY [facility] Last Admin: 01/04/24 09:07 Dose: Not Given Omeprazole (Omeprazole 40 Mg Capsule.Dr) 40 mg PO DAILY@0630 [facility] Last Admin: 01/04/24 06:35 Dose: 40 mg Polyethylene Glycol (Polyethylene Glycol 3350 17 Gm Powd.Pack) 17 gm PO DAILY PRN PRN Reason: Constipation Last Admin: 01/04/24 09:17 Dose: 17 gm Sertraline HCl (Sertraline Hcl 50 Mg Tablet) 50 mg PO DAILY [facility] Last Admin: 01/04/24 08:37 Dose: 50 mg Trazodone HCl (Trazodone Hcl 50 Mg Tablet) 50 mg PO BEDTIME MRX1 PRN PRN Reason: Insomnia Last Admin: 01/03/24 21:02 Dose: 50 mg Allergies Allergies Allergy/AdvReac Type Severity Reaction Status Date / Time No Known Allergies Allergy Verified 12/30/23 08:29 Assessment & Plan Assessment & Plan (1) MDD (major depressive disorder), recurrent episode, moderate: Status: Acute Code(s): F33.1 - Major depressive disorder, recurrent, moderate (2) Opioid use disorder: Status: Acute Code(s): F11.90 - Opioid use, unspecified, uncomplicated (3) Cocaine use disorder: Status: Acute Code(s): F14.10 - Cocaine abuse, uncomplicated Plan Patient is a 53-year-old male with history of MDD, cocaine use disorder who was brought in by ambulance from [facility] complaining of chest pain, which he was medically cleared from and began to report suicidal ideation secondary to increased depression. Plan: CV 15 minutes safety checks Continue home medications Encourage groups Referral to substance abuse program Discharge planning 01/02: Patient reports feeling okay today; pt stated, I'm really tired today because I was woken up by my room mates and staff last night. I'm hoping to sleep better tonight . Pt denies SI/HI/VH/AH. Keeping to self. Continue current tx plan. 01/03: elevated K. recheck BMP in the morning. T/C kayexalate at that point if not trending down. otherwise feeling well. continue current mgmt. Reason for continued inpatient stay Substantial Risk for: inability to function and rapid decompensation Time Spent With Patient Time: Total time managing care of this patient today ____ minutes.
[2024-01-04 20:00] VITALS: BP 109/61; PULSE 60; RESP 18; TEMP 36.6; O2SAT 95
[2024-01-04] MEDS: traZODone HCL 50 MG TABLET PO (20:32)
[2024-01-05] MEDS: Omeprazole 40 MG CAPSULE.DR PO (06:31)
[2024-01-05 07:48] VITALS: BP 125/84; PULSE 59; RESP 16; TEMP 36.8
[2024-01-05] MEDS: Apixaban 5 MG TABLET PO ×2 (08:34→20:21)
[2024-01-05] MEDS: Sertraline HCL 50 MG TABLET PO (08:34)
[2024-01-05] MEDS: Buprenorphine/Naloxone 8/2 mg FILM 1 FILM BUCCAL ×3 (08:37→20:22)
--- NOTE | 2024-01-05 09:19 | HO.PSYCHPN ---
Subjective Subjective Date of Service: 01/05/24 Reason For Visit: crisis Subjective Notes: Conditional Voluntary Interim History: Reviewed with Dr. Valentine. Active on unit. Pt reports feeling anxious today; pt stated, I'm worried about not having a place to go after here. If I don't get into the [facility] then I'll go to a long-term or respite . Pt refused HS Suboxone; c/o constipation. Ordered Senna; pt aware. Pt denies SI/HI/VH/AH. Medication Compliance: Yes Side effects from medications: No Attending Groups: Intermittent Review of Systems Constitutional: Reports as per HPI Eyes: Reports as per HPI Reports as per HPI Cardiovascular: Reports as per HPI Respiratory: Reports as per HPI Gastrointestinal: Reports as per HPI Genitourinary: Reports as per HPI Musculoskeletal: Reports as per HPI Skin/Breast: Reports as per HPI Reports as per HPI Psychiatric: Reports as per HPI Endocrine: Reports as per HPI Hematologic/Lymphatic: Reports as per HPI Allergic/Immunologic: Reports as per HPI Mental Status Exam Mental Status Exam Narrative: Pt is alert and oriented; behavior is cooperative and calm; dressed in casual attire; mood is described as anxious ; eye contact appropriate; Speech is normal rate, volume and not pressured; thought process is organized and goal directed; Thought content is on tx; denies SI/HI/VH/AH. Diagnostics Vital Signs (24Hr): Vital Signs - 24 hr 01/04/24 20:00 01/05/24 07:48 Temperature 97.9 F 98.2 F Pulse Rate 60 59 Respiratory Rate 18 16 Blood Pressure 109/61 125/84 Pulse Oximetry 95 Oxygen Delivery Method Room Air Room Air BMI result Body Mass Index 30.8 Labs 12/31/23 09:59 01/05/24 09:19 Imaging Radiology Impressions: ITS Impressions Chest X-Ray 12/30/23 08:40 IMPRESSION: No acute cardiopulmonary findings. Electronically signed by: Farhana Lin MD 12/30/2023 09:21 AM EDT Abdomen/Pelvis CT 12/31/23 09:15 IMPRESSION: 1. 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 New mild left-sided hydroureteronephrosis without discrete obstructive calculi. Recommend short-term follow-up with ultrasound. 2. Moderate degree of stool content in the colon and rectum suggesting constipation. 3. Diverticulosis but no evidence of acute diverticulitis. Electronically signed by: Farhana Lin MD 12/31/2023 10:09 AM EDT RP Abdomen Ultrasound 12/31/23 09:41 IMPRESSION: Positive Walker sign without sonographic evidence of cholecystitis. Electronically signed by: Carine Peralta MD 12/31/2023 09:56 AM EDT RP Medications Medications Current Medications Acetaminophen (Acetaminophen 325 Mg Tablet) 650 mg PO Q6H PRN PRN Reason: Headache/Pain Mild Scale (1-3) Al Hydroxide/Mg Hydroxide (Magnesium Hydrox/Alum Hydrox 30 Ml Oral.Susp) 30 ml PO Q6H PRN PRN Reason: Heartburn/Nausea Apixaban (Apixaban 5 Mg Tablet) 5 mg PO BID [facility] Last Admin: 01/05/24 08:34 Dose: 5 mg Buprenorphine/Naloxone (Buprenorphine/Naloxone 8/2 Mg Film) 1 film BUCCAL TID [facility] Last Admin: 01/05/24 08:37 Dose: 1 film Famotidine (Famotidine 20 Mg Tablet) 40 mg PO BEDTIME [facility] Last Admin: 01/04/24 20:34 Dose: Not Given Hydroxyzine HCl (Hydroxyzine Hcl 50 Mg Tablet) 50 mg PO TID PRN PRN Reason: Anxiety Last Admin: 01/04/24 20:31 Dose: 50 mg Hydroxyzine HCl (Hydroxyzine Hcl 25 Mg Tablet) 25 mg PO Q6H PRN PRN Reason: Anxiety Last Admin: 01/04/24 12:11 Dose: 25 mg Lorazepam (Lorazepam 1 Mg Tablet) 1 mg PO DAILY PRN PRN Reason: Anxiety Last Admin: 01/04/24 12:11 Dose: 1 mg Magnesium Hydroxide (Milk Of Magnesia 30 Ml Oral.Susp) 30 ml PO DAILY PRN PRN Reason: Constipation Melatonin (Melatonin 3 Mg Tablet) 6 mg PO ONCE PRN PRN Reason: Sleep Last Admin: 01/01/24 20:42 Dose: 6 mg Metoprolol Tartrate (Metoprolol Tartrate 25 Mg Tablet) 25 mg PO BID [facility]; Protocol Last Admin: 01/05/24 08:39 Dose: Not Given Nicotine Polacrilex (Nicotine Polacrilex 2 Mg Gum) 4 mg BUCCAL Q2H PRN PRN Reason: Nicotine Cravings Non-Formulary Medication (Nebivolol) 5 mg PO DAILY [facility] Last Admin: 01/05/24 08:54 Dose: Not Given Omeprazole (Omeprazole 40 Mg Capsule.Dr) 40 mg PO DAILY@0630 [facility] Last Admin: 01/05/24 06:31 Dose: 40 mg Polyethylene Glycol (Polyethylene Glycol 3350 17 Gm Powd.Pack) 17 gm PO DAILY PRN PRN Reason: Constipation Last Admin: 01/04/24 09:17 Dose: 17 gm Sertraline HCl (Sertraline Hcl 50 Mg Tablet) 50 mg PO DAILY [facility] Last Admin: 01/05/24 08:34 Dose: 50 mg Trazodone HCl (Trazodone Hcl 50 Mg Tablet) 50 mg PO BEDTIME MRX1 PRN PRN Reason: Insomnia Last Admin: 01/04/24 20:32 Dose: 50 mg Allergies Allergies Allergy/AdvReac Type Severity Reaction Status Date / Time No Known Allergies Allergy Verified 12/30/23 08:29 Assessment & Plan Assessment & Plan (1) MDD (major depressive disorder), recurrent episode, moderate: Status: Acute Code(s): F33.1 - Major depressive disorder, recurrent, moderate (2) Opioid use disorder: Status: Acute Code(s): F11.90 - Opioid use, unspecified, uncomplicated (3) Cocaine use disorder: Status: Acute Code(s): F14.10 - Cocaine abuse, uncomplicated Plan Patient is a 53-year-old male with history of MDD, cocaine use disorder who was brought in by ambulance from [facility] complaining of chest pain, which he was medically cleared from and began to report suicidal ideation secondary to increased depression. Plan: CV 15 minutes safety checks Continue home medications Encourage groups Referral to substance abuse program Discharge planning 01/02: Patient reports feeling okay today; pt stated, I'm really tired today because I was woken up by my room mates and staff last night. I'm hoping to sleep better tonight . Pt denies SI/HI/VH/AH. Keeping to self. Continue current tx plan. 01/03: elevated K. recheck BMP in the morning. T/C kayexalate at that point if not trending down. otherwise feeling well. continue current mgmt. 01/04: Active on unit. Pt reports feeling anxious today; pt stated, I'm worried about not having a place to go after here. If I don't get into the [facility] then I'll go to a long-term or respite . Pt refused HS Suboxone; c/o constipation. Ordered Senna; pt aware. Pt denies SI/HI/VH/AH. Potassium 4.6 on 12/26/23. Patient educated on: diagnosis, medication risk/benefits and therapeutic strategies Reason for continued inpatient stay Substantial Risk for: med/psych decompensation Time Spent With Patient Time: Total time managing care of this patient today _20___ minutes.
[2024-01-05 09:37] LABS: Anion Gap 11 (12-20); Blood Urea Nitrogen 14 mg/dL (9-16); Calcium 9.4 mg/dL (8.4-10.2); Carbon Dioxide 30 mmol/L (22-29); Chloride 103 mmol/L (96-108); Creatinine Clr Calc Pharmacy 93.9; Estimated Glomerular Filt Rate > 60; Glucose Random 155 mg/dL (60-115); Potassium 4.6 mmol/L (3.3-5.1); Sodium 139 mmol/L (135-145)
[2024-01-05] MEDS: hydrOXYzine HCL 50 MG TABLET PO ×2 (09:51→17:23)
[2024-01-05] MEDS: Sennosides 8.6 MG TABLET 17.2 MG PO (14:45)
[2024-01-05] MEDS: LORazepam 1 MG TABLET PO (17:19)
[2024-01-05 19:40] VITALS: BP 125/77; PULSE 63; RESP 16; TEMP 36.6; O2SAT 97
[2024-01-05] MEDS: traZODone HCL 50 MG TABLET PO ×2 (20:21→21:21)
[2024-01-05] MEDS: Famotidine 20 MG TABLET 40 MG PO (20:22)
[2024-01-06] MEDS: Omeprazole 40 MG CAPSULE.DR PO (07:00)
[2024-01-06 07:42] VITALS: BP 112/68; PULSE 57; RESP 16; TEMP 36.8; O2SAT 95
[2024-01-06] MEDS: Apixaban 5 MG TABLET PO ×2 (09:03→20:58)
[2024-01-06] MEDS: Sertraline HCL 50 MG TABLET PO (09:04)
[2024-01-06 09:05] VITALS: BP 117/75; PULSE 60; O2SAT 94
[2024-01-06] MEDS: Buprenorphine/Naloxone 8/2 mg FILM 1 FILM BUCCAL ×2 (09:07→15:30)
[2024-01-06] MEDS: hydrOXYzine HCL 50 MG TABLET PO ×2 (12:28→14:34)
[2024-01-06 20:00] VITALS: BP 122/81; PULSE 65; RESP 12; TEMP 36.8; O2SAT 96
[2024-01-06] MEDS: traZODone HCL 50 MG TABLET PO (20:58)
[2024-01-07] MEDS: Omeprazole 40 MG CAPSULE.DR PO (06:35)
[2024-01-07 08:37] VITALS: BP 112/65; PULSE 62; RESP 16; TEMP 37.1; O2SAT 95
[2024-01-07] MEDS: Sertraline HCL 50 MG TABLET PO (08:42)
[2024-01-07] MEDS: Buprenorphine/Naloxone 8/2 mg FILM 1 FILM BUCCAL ×2 (08:42→15:27)
[2024-01-07] MEDS: Apixaban 5 MG TABLET PO ×2 (08:42→20:32)
[2024-01-07] MEDS: LORazepam 1 MG TABLET PO (09:15)
[2024-01-07] MEDS: hydrOXYzine HCL 50 MG TABLET PO ×3 (09:16→20:35)
[2024-01-07] MEDS: Sennosides 8.6 MG TABLET 17.2 MG PO (10:08)
--- NOTE | 2024-01-07 16:06 | HO.PSYCHPN ---
Subjective Subjective Date of Service: 01/06/24 Reason For Visit: crisis Subjective Notes: Conditional Voluntary Interim History: Pt reports difficulty sleeping but declines medication changes. somatically preoccupied, same report of symptoms asking this medical writer if lipase could be checked- discussed that this year along he has had 8 times lipase check since apr 2023 and recently as to few days ago and it has always been wnl. pt with multiple somatic complains that he says is sure are slowly ending his life. NO SI/HI. Review of Systems Review of Systems Yes all other systems are reviewed and are negative Constitutional: Reports as per HPI Eyes: Reports as per HPI Reports as per HPI Cardiovascular: Reports as per HPI Respiratory: Reports as per HPI Gastrointestinal: Reports as per HPI Genitourinary: Reports as per HPI Musculoskeletal: Reports as per HPI Skin/Breast: Reports as per HPI Reports as per HPI Psychiatric: Reports as per HPI Endocrine: Reports as per HPI Hematologic/Lymphatic: Reports as per HPI Allergic/Immunologic: Reports as per HPI Mental Status Exam Mental Status Exam Narrative: Pt is alert and oriented; behavior is cooperative and calm; dressed in casual attire; mood is described as anxious ; eye contact appropriate; Speech is normal rate, volume and not pressured; thought process is organized and goal directed; Thought content is on tx; denies SI/HI/VH/AH. Diagnostics Vital Signs (24Hr): Vital Signs - 24 hr 01/06/24 20:00 01/07/24 08:37 Temperature 98.3 F 98.8 F Pulse Rate 65 62 Respiratory Rate 12 16 Blood Pressure 122/81 112/65 Pulse Oximetry 96 95 Oxygen Delivery Method Room Air Room Air BMI result Body Mass Index 30.8 Labs 12/31/23 09:59 01/05/24 09:19 Imaging Radiology Impressions: ITS Impressions Chest X-Ray 12/30/23 08:40 IMPRESSION: No acute cardiopulmonary findings. Electronically signed by: Farhana Lin MD 12/30/2023 09:21 AM EDT Abdomen/Pelvis CT 12/31/23 09:15 IMPRESSION: 1. 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 New mild left-sided hydroureteronephrosis without discrete obstructive calculi. Recommend short-term follow-up with ultrasound. 2. Moderate degree of stool content in the colon and rectum suggesting constipation. 3. Diverticulosis but no evidence of acute diverticulitis. Electronically signed by: Farhana Lin MD 12/31/2023 10:09 AM EDT RP Abdomen Ultrasound 12/31/23 09:41 IMPRESSION: Positive Walker sign without sonographic evidence of cholecystitis. Electronically signed by: Carine Peralta MD 12/31/2023 09:56 AM EDT RP Medications Medications Current Medications Acetaminophen (Acetaminophen 325 Mg Tablet) 650 mg PO Q6H PRN PRN Reason: Headache/Pain Mild Scale (1-3) Al Hydroxide/Mg Hydroxide (Magnesium Hydrox/Alum Hydrox 30 Ml Oral.Susp) 30 ml PO Q6H PRN PRN Reason: Heartburn/Nausea Apixaban (Apixaban 5 Mg Tablet) 5 mg PO BID [facility] Last Admin: 01/07/24 08:42 Dose: 5 mg Buprenorphine/Naloxone (Buprenorphine/Naloxone 8/2 Mg Film) 1 film BUCCAL TID [facility] Last Admin: 01/07/24 15:27 Dose: 1 film Famotidine (Famotidine 20 Mg Tablet) 40 mg PO BEDTIME [facility] Last Admin: 01/06/24 21:04 Dose: Not Given Hydroxyzine HCl (Hydroxyzine Hcl 50 Mg Tablet) 50 mg PO TID PRN PRN Reason: Anxiety Last Admin: 01/07/24 09:16 Dose: 50 mg Lorazepam (Lorazepam 1 Mg Tablet) 1 mg PO DAILY PRN PRN Reason: Anxiety Last Admin: 01/07/24 09:15 Dose: 1 mg Magnesium Hydroxide (Milk Of Magnesia 30 Ml Oral.Susp) 30 ml PO DAILY PRN PRN Reason: Constipation Melatonin (Melatonin 3 Mg Tablet) 6 mg PO ONCE PRN PRN Reason: Sleep Last Admin: 01/01/24 20:42 Dose: 6 mg Metoprolol Tartrate (Metoprolol Tartrate 25 Mg Tablet) 25 mg PO BID [facility]; Protocol Last Admin: 01/07/24 08:42 Dose: Not Given Nicotine Polacrilex (Nicotine Polacrilex 2 Mg Gum) 4 mg BUCCAL Q2H PRN PRN Reason: Nicotine Cravings Non-Formulary Medication (Nebivolol) 5 mg PO DAILY [facility] Last Admin: 01/07/24 08:43 Dose: Not Given Omeprazole (Omeprazole 40 Mg Capsule.) 40 mg PO DAILY@0630 [facility] Last Admin: 01/07/24 06:35 Dose: 40 mg Polyethylene Glycol (Polyethylene Glycol 3350 17 Gm Powd.Pack) 17 gm PO DAILY PRN PRN Reason: Constipation Last Admin: 01/04/24 09:17 Dose: 17 gm Senna (Sennosides 8.6 Mg Tablet) 17.2 mg PO DAILY [facility] Last Admin: 01/07/24 10:08 Dose: 17.2 mg Sertraline HCl (Sertraline Hcl 50 Mg Tablet) 50 mg PO DAILY [facility] Last Admin: 01/07/24 08:42 Dose: 50 mg Trazodone HCl (Trazodone Hcl 50 Mg Tablet) 50 mg PO BEDTIME MRX1 PRN PRN Reason: Insomnia Last Admin: 01/06/24 20:58 Dose: 50 mg Allergies Allergies Allergy/AdvReac Type Severity Reaction Status Date / Time No Known Allergies Allergy Verified 12/30/23 08:29 Assessment & Plan Assessment & Plan (1) MDD (major depressive disorder), recurrent episode, moderate: Status: Acute Code(s): F33.1 - Major depressive disorder, recurrent, moderate (2) Opioid use disorder: Status: Acute Code(s): F11.90 - Opioid use, unspecified, uncomplicated (3) Cocaine use disorder: Status: Acute Code(s): F14.10 - Cocaine abuse, uncomplicated Plan Patient is a 53-year-old male with history of MDD, cocaine use disorder who was brought in by ambulance from [facility] complaining of chest pain, which he was medically cleared from and began to report suicidal ideation secondary to increased depression. Plan: CV 15 minutes safety checks Continue home medications Encourage groups Referral to substance abuse program Discharge planning 01/02: Patient reports feeling okay today; pt stated, I'm really tired today because I was woken up by my room mates and staff last night. I'm hoping to sleep better tonight . Pt denies SI/HI/VH/AH. Keeping to self. Continue current tx plan. 01/03: elevated K. recheck BMP in the morning. T/C kayexalate at that point if not trending down. otherwise feeling well. continue current mgmt. 01/04: Active on unit. Pt reports feeling anxious today; pt stated, I'm worried about not having a place to go after here. If I don't get into the [facility] then I[place] go to a [place] [facility] or respite . Pt refused HS Suboxone; c/o constipation. Ordered Senna; pt aware. Pt denies SI/HI/VH/AH. Potassium 4.6 on 12/26/23. 01/05 continue tx/ Reason for continued inpatient stay Substantial Risk for: inability to function Time Spent With Patient Time: Total time managing care of this patient today ____ minutes.
[2024-01-07 20:00] VITALS: BP 121/77; PULSE 66; RESP 17; TEMP 36.6; O2SAT 96
[2024-01-07] MEDS: traZODone HCL 50 MG TABLET PO ×2 (20:32→21:23)
[2024-01-08] MEDS: Omeprazole 40 MG CAPSULE.DR PO (06:30)
--- NOTE | 2024-01-08 07:25 | P.PNPSI_ITS ---
Subjective Subjective Date of Service: 01/07/24 Reason For Visit: crisis Subjective Notes: Conditional Voluntary Interim History: Pt reports difficulty sleeping but declines medication changes. Pt reports urinary hesitancy, which is new symptom he reports. he denies hx of BPH. will consult urology. 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 pt with multiple somatic complains that he says is sure are slowly ending his life. NO SI/HI. Review of Systems Review of Systems Yes all other systems are reviewed and are negative Constitutional: Reports as per HPI Eyes: Reports as per HPI Reports as per HPI Cardiovascular: Reports as per HPI Respiratory: Reports as per HPI Gastrointestinal: Reports as per HPI Genitourinary: Reports as per HPI Musculoskeletal: Reports as per HPI Skin/Breast: Reports as per HPI Reports as per HPI Psychiatric: Reports as per HPI Endocrine: Reports as per HPI Hematologic/Lymphatic: Reports as per HPI Allergic/Immunologic: Reports as per HPI Mental Status Exam Mental Status Exam Narrative: Pt is alert and oriented; behavior is cooperative and calm; dressed in casual attire; mood is described as anxious ; eye contact appropriate; Speech is normal rate, volume and not pressured; thought process is organized and goal directed; Thought content is on tx; denies SI/HI/VH/AH. Diagnostics Vital Signs (24Hr): Vital Signs - 24 hr 01/07/24 08:37 01/07/24 20:00 Temperature 98.8 F 97.8 F Pulse Rate 62 66 Respiratory Rate 16 17 Blood Pressure 112/65 121/77 Pulse Oximetry 95 96 Oxygen Delivery Method Room Air Room Air BMI result Body Mass Index 30.8 Labs 12/31/23 09:59 01/05/24 09:19 Imaging Radiology Impressions: ITS Impressions Chest X-Ray 12/30/23 08:40 IMPRESSION: No acute cardiopulmonary findings. Electronically signed by: Farhana Lin MD 12/30/2023 09:21 AM EDT Abdomen/Pelvis CT 12/31/23 09:15 IMPRESSION: 1. 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 New mild left-sided hydroureteronephrosis without discrete obstructive calculi. Recommend short-term follow-up with ultrasound. 2. Moderate degree of stool content in the colon and rectum suggesting constipation. 3. Diverticulosis but no evidence of acute diverticulitis. Electronically signed by: Farhana Lin MD 12/31/2023 10:09 AM EDT RP Abdomen Ultrasound 12/31/23 09:41 IMPRESSION: Positive Walker sign without sonographic evidence of cholecystitis. Electronically signed by: Carine Peralta MD 12/31/2023 09:56 AM EDT RP Medications Medications Current Medications Acetaminophen (Acetaminophen 325 Mg Tablet) 650 mg PO Q6H PRN PRN Reason: Headache/Pain Mild Scale (1-3) Al Hydroxide/Mg Hydroxide (Magnesium Hydrox/Alum Hydrox 30 Ml Oral.Susp) 30 ml PO Q6H PRN PRN Reason: Heartburn/Nausea Apixaban (Apixaban 5 Mg Tablet) 5 mg PO BID [facility] Last Admin: 01/07/24 20:32 Dose: 5 mg Buprenorphine/Naloxone (Buprenorphine/Naloxone 8/2 Mg Film) 1 film BUCCAL TID [facility] Last Admin: 01/07/24 23:56 Dose: Not Given Famotidine (Famotidine 20 Mg Tablet) 40 mg PO BEDTIME [facility] Last Admin: 01/07/24 23:56 Dose: Not Given Hydroxyzine HCl (Hydroxyzine Hcl 50 Mg Tablet) 50 mg PO TID PRN PRN Reason: Anxiety Last Admin: 01/07/24 20:35 Dose: 50 mg Lorazepam (Lorazepam 1 Mg Tablet) 1 mg PO DAILY PRN PRN Reason: Anxiety Last Admin: 01/07/24 09:15 Dose: 1 mg Magnesium Hydroxide (Milk Of Magnesia 30 Ml Oral.Susp) 30 ml PO DAILY PRN PRN Reason: Constipation Melatonin (Melatonin 3 Mg Tablet) 6 mg PO ONCE PRN PRN Reason: Sleep Last Admin: 01/01/24 20:42 Dose: 6 mg Metoprolol Tartrate (Metoprolol Tartrate 25 Mg Tablet) 25 mg PO BID [facility]; Protocol Last Admin: 01/07/24 23:56 Dose: Not Given Nicotine Polacrilex (Nicotine Polacrilex 2 Mg Gum) 4 mg BUCCAL Q2H PRN PRN Reason: Nicotine Cravings Non-Formulary Medication (Nebivolol) 5 mg PO DAILY [facility] Last Admin: 01/07/24 08:43 Dose: Not Given Omeprazole (Omeprazole 40 Mg Capsule.) 40 mg PO DAILY@0630 [facility] Last Admin: 01/08/24 06:30 Dose: 40 mg Polyethylene Glycol (Polyethylene Glycol 3350 17 Gm Powd.Pack) 17 gm PO DAILY PRN PRN Reason: Constipation Last Admin: 01/04/24 09:17 Dose: 17 gm Senna (Sennosides 8.6 Mg Tablet) 17.2 mg PO DAILY [facility] Last Admin: 01/07/24 10:08 Dose: 17.2 mg Sertraline HCl (Sertraline Hcl 50 Mg Tablet) 50 mg PO DAILY [facility] Last Admin: 01/07/24 08:42 Dose: 50 mg Trazodone HCl (Trazodone Hcl 50 Mg Tablet) 50 mg PO BEDTIME MRX1 PRN PRN Reason: Insomnia Last Admin: 01/07/24 21:23 Dose: 50 mg Allergies Allergies Allergy/AdvReac Type Severity Reaction Status Date / Time No Known Allergies Allergy Verified 12/30/23 08:29 Assessment & Plan Assessment & Plan (1) MDD (major depressive disorder), recurrent episode, moderate: Status: Acute Code(s): F33.1 - Major depressive disorder, recurrent, moderate (2) Opioid use disorder: Status: Acute Code(s): F11.90 - Opioid use, unspecified, uncomplicated (3) Cocaine use disorder: Status: Acute Code(s): F14.10 - Cocaine abuse, uncomplicated Plan Patient is a 53-year-old male with history of MDD, cocaine use disorder who was brought in by ambulance from [facility] complaining of chest pain, which he was medically cleared from and began to report suicidal ideation secondary to increased depression. Plan: CV 15 minutes safety checks Continue home medications Encourage groups Referral to substance abuse program Discharge planning 01/02: Patient reports feeling okay today; pt stated, I'm really tired today because I was woken up by my room mates and staff last night. I'm hoping to sleep better tonight . Pt denies SI/HI/VH/AH. Keeping to self. Continue current tx plan. 01/03: elevated K. recheck BMP in the morning. T/C kayexalate at that point if not trending down. otherwise feeling well. continue current mgmt. 01/04: Active on unit. Pt reports feeling anxious today; pt stated, I'm worried about not having a place to go after here. If I don't get into the [facility] then I'll go to a nursing home or respite . Pt refused HS Suboxone; c/o constipation. Ordered Senna; pt aware. Pt denies SI/HI/VH/AH. Potassium 4.6 on 12/26/23. 01/05 continue 01/06 urology consult for urinary hesitancy. Reason for continued inpatient stay Substantial Risk for: inability to function Time Spent With Patient Time: Total time managing care of this patient today ____ minutes.
--- NOTE | 2024-01-08 07:55 | P.CNUR_ITS ---
History of Present Illness Consult details Consult date: 01/08/24 Narrative: CC: Urinary hesitancy PMFSH Social History Social History Household Members: None Housing: Homeless Do you presently have visiting nurse or other home services: Yes ([employer] by history) Alcohol intake: current Alcohol intake frequency: a few times a week Alcohol type: hard liquor Patient Tobacco Use Status: Former Tobacco user Smoked in Last 30 Days: No Patient Interested in Nicotine Replacement: No Patient Given Instructions on How to Stop Smoking: No (N/A) Use of substances other than those prescribed or required for medical reasons: Yes Substance Use Type: Amphetamines, 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 If so, by whom?: No Do you feel safe in your current relationship?: No Current Relationship Is there a partner from a previous relationship who is making you feel unsafe now?: No Are you made to feel afraid or neglected: No Spiritual Healthcare Practices: I believe in something greater Advance Directives: No Do you have thoughts of harming others: None Do you have a plan to hurt others: No Plan Recently lost weight without trying: Yes How much weight loss: 2-13 pounds Eating poorly because of decreased appetite: Yes Nutrition screen score: 4 Nutrition Risks: No Nutritional Risk Poor oral hygiene: Yes (poor dentition) service: No Sexual orientation: Straight/Heterosexual Meds Allergies Allergy/AdvReac Type Severity Reaction Status Date / Time No Known Allergies Allergy Verified 12/30/23 08:29 Active Medications: Current Medications Acetaminophen (Acetaminophen 325 Mg Tablet) 650 mg PO Q6H PRN PRN Reason: Headache/Pain Mild Scale (1-3) Al Hydroxide/Mg Hydroxide (Magnesium Hydrox/Alum Hydrox 30 Ml Oral.Susp) 30 ml PO Q6H PRN PRN Reason: Heartburn/Nausea Apixaban (Apixaban 5 Mg Tablet) 5 mg PO BID [facility] Last Admin: 01/07/24 20:32 Dose: 5 mg Buprenorphine/Naloxone (Buprenorphine/Naloxone 8/2 Mg Film) 1 film BUCCAL TID [facility] Last Admin: 01/07/24 23:56 Dose: Not Given Famotidine (Famotidine 20 Mg Tablet) 40 mg PO BEDTIME [facility] Last Admin: 01/07/24 23:56 Dose: Not Given Hydroxyzine HCl (Hydroxyzine Hcl 50 Mg Tablet) 50 mg PO TID PRN PRN Reason: Anxiety Last Admin: 01/07/24 20:35 Dose: 50 mg Lorazepam (Lorazepam 1 Mg Tablet) 1 mg PO DAILY PRN PRN Reason: Anxiety Last Admin: 01/07/24 09:15 Dose: 1 mg Magnesium Hydroxide (Milk Of Magnesia 30 Ml Oral.Susp) 30 ml PO DAILY PRN PRN Reason: Constipation Melatonin (Melatonin 3 Mg Tablet) 6 mg PO ONCE PRN PRN Reason: Sleep Last Admin: 01/01/24 20:42 Dose: 6 mg Metoprolol Tartrate (Metoprolol Tartrate 25 Mg Tablet) 25 mg PO BID [facility]; Protocol Last Admin: 01/07/24 23:56 Dose: Not Given Nicotine Polacrilex (Nicotine Polacrilex 2 Mg Gum) 4 mg BUCCAL Q2H PRN PRN Reason: Nicotine Cravings Non-Formulary Medication (Nebivolol) 5 mg PO DAILY [facility] Last Admin: 01/07/24 08:43 Dose: Not Given Omeprazole (Omeprazole 40 Mg Capsule.Dr) 40 mg PO DAILY@0630 [facility] Last Admin: 01/08/24 06:30 Dose: 40 mg Polyethylene Glycol (Polyethylene Glycol 3350 17 Gm Powd.Pack) 17 gm PO DAILY PRN PRN Reason: Constipation Last Admin: 01/04/24 09:17 Dose: 17 gm Senna (Sennosides 8.6 Mg Tablet) 17.2 mg PO DAILY [facility] Last Admin: 01/07/24 10:08 Dose: 17.2 mg Sertraline HCl (Sertraline Hcl 50 Mg Tablet) 50 mg PO DAILY [facility] Last Admin: 01/07/24 08:42 Dose: 50 mg Trazodone HCl (Trazodone Hcl 50 Mg Tablet) 50 mg PO BEDTIME MRX1 PRN PRN Reason: Insomnia Last Admin: 01/07/24 21:23 Dose: 50 mg Home Medications ?Medication ?Instructions ?Recorded ?Confirmed ?Last Taken ?Type apixaban 5 mg tablet (Eliquis) 5 mg PO BID 11/22/23 12/30/23 12/23/23 History lorazepam 1 mg tablet 1 mg PO DAILY PRN Anxiety 11/22/23 12/30/23 12/04/23 08:00 History metoprolol tartrate 25 mg tablet 25 mg PO BID 11/22/23 12/30/23 12/23/23 History hydroxyzine HCl 50 mg tablet 50 mg PO TID PRN anxiety 12/24/23 12/30/23 Unknown History buprenorphine 8 mg-naloxone 2 mg 1 film sublingual TID 12/30/23 12/30/23 Unknown History sublingual film (Suboxone) famotidine 40 mg tablet 40 mg PO BEDTIME 12/30/23 12/30/23 Unknown History nebivolol 5 mg tablet 5 mg PO DAILY 12/30/23 12/30/23 Unknown History omeprazole 40 mg capsule,delayed 40 mg PO DAILY 12/30/23 12/30/23 Unknown History release sertraline 50 mg tablet 50 mg PO DAILY 12/30/23 12/30/23 Unknown History Physical Exam 2 Vital Signs: Vital Signs: Last Vital Signs Temp 97.8 F 01/07/24 20:00 Pulse 66 01/07/24 20:00 Resp 17 01/07/24 20:00 BP 121/77 01/07/24 20:00 Pulse Ox 96 01/07/24 20:00 O2 Del Method Room Air 01/07/24 20:00 BMI result Body Mass Index 30.8 Results Labs 12/31/23 09:59 01/05/24 09:19 Labs: Urine 01/01/24 Range/Units 08:51 Urine Color Yellow Urine Appearance Clear Urine pH 7.0 (5.0-9.0) Ur Specific [place] 1.015 (1.005-1.025) Urine Protein Negative (Neg-Trace) mg/dL Urine Glucose (UA) Negative (Negative) mg/dL All other labs normal. Procedures Date of Service Date of Service: 01/08/24
[2024-01-08] MEDS: hydrOXYzine HCL 50 MG TABLET PO ×3 (08:53→17:28)
[2024-01-08] MEDS: Buprenorphine/Naloxone 8/2 mg FILM 1 FILM BUCCAL (08:53)
[2024-01-08] MEDS: Apixaban 5 MG TABLET PO ×2 (08:54→22:11)
[2024-01-08] MEDS: Sertraline HCL 50 MG TABLET PO (08:54)
[2024-01-08] MEDS: Sennosides 8.6 MG TABLET 17.2 MG PO (08:54)
[2024-01-08 08:58] VITALS: BP 119/78; PULSE 62; RESP 18; TEMP 36.4; O2SAT 97
--- NOTE | 2024-01-08 12:53 | HO.PSYCHPN ---
Subjective Subjective Date of Service: 01/08/24 Reason For Visit: crisis Subjective Notes: Conditional Voluntary Interim History: Reviewed with Dr. Valentine. Active on unit. keeping to self. pt reports feeling anxious about my situation ; he reports plan to go to [facility] if not accepted to [facility]. Pt reports feeling better after bowel movement today. denies SI/HI/VH/AH. Medication Compliance: Yes Side effects from medications: No Attending Groups: Yes Review of Systems Constitutional: Reports as per HPI Eyes: Reports as per HPI Reports as per HPI Cardiovascular: Reports as per HPI Respiratory: Reports as per HPI Gastrointestinal: Reports as per HPI Genitourinary: Reports as per HPI Musculoskeletal: Reports as per HPI Skin/Breast: Reports as per HPI Reports as per HPI Psychiatric: Reports as per HPI Endocrine: Reports as per HPI Hematologic/Lymphatic: Reports as per HPI Allergic/Immunologic: Reports as per HPI Mental Status Exam Mental Status Exam Narrative: Pt is alert and oriented; behavior is cooperative and calm; dressed in casual attire; mood is described as anxious ; eye contact appropriate; Speech is normal rate, volume and not pressured; thought process is organized and goal directed; Thought content is on tx; denies SI/HI/VH/AH. Diagnostics Vital Signs (24Hr): Vital Signs - 24 hr 01/07/24 20:00 01/08/24 08:58 Temperature 97.8 F 97.6 F Pulse Rate 66 62 Respiratory Rate 17 18 Blood Pressure 121/77 119/78 Pulse Oximetry 96 97 Oxygen Delivery Method Room Air Room Air BMI result Body Mass Index 30.8 Labs 12/31/23 09:59 01/05/24 09:19 Imaging Radiology Impressions: ITS Impressions Chest X-Ray 12/30/23 08:40 IMPRESSION: No acute cardiopulmonary findings. Electronically signed by: Farhana Lin MD 12/30/2023 09:21 AM EDT Abdomen/Pelvis CT 12/31/23 09:15 IMPRESSION: 1. 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 New mild left-sided hydroureteronephrosis without discrete obstructive calculi. Recommend short-term follow-up with ultrasound. 2. Moderate degree of stool content in the colon and rectum suggesting constipation. 3. Diverticulosis but no evidence of acute diverticulitis. Electronically signed by: Farhana Lin MD 12/31/2023 10:09 AM EDT RP Abdomen Ultrasound 12/31/23 09:41 IMPRESSION: Positive Walker sign without sonographic evidence of cholecystitis. Electronically signed by: Carine Peralta MD 12/31/2023 09:56 AM EDT RP Medications Medications Current Medications Acetaminophen (Acetaminophen 325 Mg Tablet) 650 mg PO Q6H PRN PRN Reason: Headache/Pain Mild Scale (1-3) Al Hydroxide/Mg Hydroxide (Magnesium Hydrox/Alum Hydrox 30 Ml Oral.Susp) 30 ml PO Q6H PRN PRN Reason: Heartburn/Nausea Apixaban (Apixaban 5 Mg Tablet) 5 mg PO BID [facility] Last Admin: 01/08/24 08:54 Dose: 5 mg Buprenorphine/Naloxone (Buprenorphine/Naloxone 8/2 Mg Film) 1 film BUCCAL TID [facility] Last Admin: 01/08/24 08:53 Dose: 1 film Doxazosin Mesylate (Doxazosin Mesylate 2 Mg Tablet) 4 mg PO BEDTIME [facility]; Protocol Famotidine (Famotidine 20 Mg Tablet) 40 mg PO BEDTIME [facility] Last Admin: 01/07/24 23:56 Dose: Not Given Hydroxyzine HCl (Hydroxyzine Hcl 50 Mg Tablet) 50 mg PO TID PRN PRN Reason: Anxiety Last Admin: 01/08/24 10:55 Dose: 50 mg Lorazepam (Lorazepam 1 Mg Tablet) 1 mg PO DAILY PRN PRN Reason: Anxiety Last Admin: 01/07/24 09:15 Dose: 1 mg Magnesium Hydroxide (Milk Of Magnesia 30 Ml Oral.Susp) 30 ml PO DAILY PRN PRN Reason: Constipation Melatonin (Melatonin 3 Mg Tablet) 6 mg PO ONCE PRN PRN Reason: Sleep Last Admin: 01/01/24 20:42 Dose: 6 mg Metoprolol Tartrate (Metoprolol Tartrate 25 Mg Tablet) 25 mg PO BID [facility]; Protocol Last Admin: 01/08/24 08:55 Dose: Not Given Nicotine Polacrilex (Nicotine Polacrilex 2 Mg Gum) 4 mg BUCCAL Q2H PRN PRN Reason: Nicotine Cravings Non-Formulary Medication (Nebivolol) 5 mg PO DAILY [facility] Last Admin: 01/08/24 08:55 Dose: Not Given Omeprazole (Omeprazole 40 Mg Capsule.) 40 mg PO DAILY@0630 [facility] Last Admin: 01/08/24 06:30 Dose: 40 mg Polyethylene Glycol (Polyethylene Glycol 3350 17 Gm Powd.Pack) 17 gm PO DAILY PRN PRN Reason: Constipation Last Admin: 01/04/24 09:17 Dose: 17 gm Senna (Sennosides 8.6 Mg Tablet) 17.2 mg PO DAILY [facility] Last Admin: 01/08/24 08:54 Dose: 17.2 mg Sertraline HCl (Sertraline Hcl 50 Mg Tablet) 50 mg PO DAILY [facility] Last Admin: 01/08/24 08:54 Dose: 50 mg Trazodone HCl (Trazodone Hcl 50 Mg Tablet) 50 mg PO BEDTIME MRX1 PRN PRN Reason: Insomnia Last Admin: 01/07/24 21:23 Dose: 50 mg Allergies Allergies Allergy/AdvReac Type Severity Reaction Status Date / Time No Known Allergies Allergy Verified 12/30/23 08:29 Assessment & Plan Assessment & Plan (1) MDD (major depressive disorder), recurrent episode, moderate: Status: Acute Code(s): F33.1 - Major depressive disorder, recurrent, moderate (2) Opioid use disorder: Status: Acute Code(s): F11.90 - Opioid use, unspecified, uncomplicated (3) Cocaine use disorder: Status: Acute Code(s): F14.10 - Cocaine abuse, uncomplicated Plan Patient is a 53-year-old male with history of MDD, cocaine use disorder who was brought in by ambulance from [facility] complaining of chest pain, which he was medically cleared from and began to report suicidal ideation secondary to increased depression. Plan: CV 15 minutes safety checks Continue home medications Encourage groups Referral to substance abuse program Discharge planning 01/02: Patient reports feeling okay today; pt stated, I'm really tired today because I was woken up by my room mates and staff last night. I'm hoping to sleep better tonight . Pt denies SI/HI/VH/AH. Keeping to self. Continue current tx plan. 01/03: elevated K. recheck BMP in the morning. T/C kayexalate at that point if not trending down. otherwise feeling well. continue current mgmt. 01/04: Active on unit. Pt reports feeling anxious today; pt stated, I'm worried about not having a place to go after here. If I don't get into the [facility] then I'll go to a [facility] or respite . Pt refused HS Suboxone; c/o constipation. Ordered Senna; pt aware. Pt denies SI/HI/VH/AH. Potassium 4.6 on 12/26/23. 01/05 continue 01/06 urology consult for urinary hesitancy. 01/07: Active on unit. keeping to self. pt reports feeling anxious about my situation ; he reports plan to go to [facility] if not accepted to [facility]. Pt reports feeling better after bowel movement today. denies SI/HI/VH/AH. Patient educated on: diagnosis, medication risk/benefits and therapeutic strategies Reason for continued inpatient stay Substantial Risk for: med/psych decompensation Time Spent With Patient Time: Total time managing care of this patient today _20___ minutes.
[2024-01-08 20:00] VITALS: BP 139/92; PULSE 58; TEMP 36.6; O2SAT 97
[2024-01-09] MEDS: Sennosides 8.6 MG TABLET 17.2 MG PO (08:24)
[2024-01-09] MEDS: Omeprazole 40 MG CAPSULE.DR PO (08:24)
[2024-01-09] MEDS: Sertraline HCL 50 MG TABLET PO (08:24)
[2024-01-09] MEDS: Apixaban 5 MG TABLET PO ×2 (08:25→20:31)
[2024-01-09] MEDS: Buprenorphine/Naloxone 8/2 mg FILM 1 FILM BUCCAL ×2 (08:25→15:29)
[2024-01-09 08:37] VITALS: BP 121/84; PULSE 62; RESP 16; TEMP 36.7; O2SAT 98
[2024-01-09] MEDS: hydrOXYzine HCL 50 MG TABLET PO ×3 (09:23→19:28)
--- NOTE | 2024-01-09 09:46 | P.PNPSI_ITS ---
Subjective Subjective Date of Service: 01/09/24 Reason For Visit: crisis Subjective Notes: Conditional Voluntary Interim History: Reviewed with Dr. Valentine. Active on unit. Pt continues to report feeling anxious ; Pt stated, I'm trying to distract myself with groups . He reports sleeping well last night. Pt reports he declined his HS meds last night d/t nursing waking me up to give them to me late . denies SI/HI/VH/AH. Waiting to hear from [facility] for available bed. Medication Compliance: Yes Side effects from medications: No Attending Groups: Yes Review of Systems Constitutional: Reports as per HPI Eyes: Reports as per HPI Reports as per HPI Cardiovascular: Reports as per HPI Respiratory: Reports as per HPI Gastrointestinal: Reports as per HPI Genitourinary: Reports as per HPI Musculoskeletal: Reports as per HPI Skin/Breast: Reports as per HPI Reports as per HPI Psychiatric: Reports as per HPI Endocrine: Reports as per HPI Hematologic/Lymphatic: Reports as per HPI Allergic/Immunologic: Reports as per HPI Mental Status Exam Mental Status Exam Narrative: Pt is alert and oriented; behavior is cooperative and calm; dressed in casual attire; mood is described as anxious ; eye contact appropriate; Speech is normal rate, volume and not pressured; thought process is organized and goal directed; Thought content is on tx; denies SI/HI/VH/AH. Diagnostics Vital Signs (24Hr): Vital Signs - 24 hr 01/08/24 20:00 01/09/24 08:37 Temperature 97.8 F 98.0 F Pulse Rate 58 62 Respiratory Rate 16 Blood Pressure 139/92 H 121/84 Pulse Oximetry 97 98 Oxygen Delivery Method Room Air Room Air BMI result Body Mass Index 30.8 Labs 12/31/23 09:59 01/05/24 09:19 Imaging Radiology Impressions: ITS Impressions Chest X-Ray 12/30/23 08:40 IMPRESSION: No acute cardiopulmonary findings. Electronically signed by: Farhana Lin MD 12/30/2023 09:21 AM EDT Abdomen/Pelvis CT 12/31/23 09:15 IMPRESSION: 1. 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 New mild left-sided hydroureteronephrosis without discrete obstructive calculi. Recommend short-term follow-up with ultrasound. 2. Moderate degree of stool content in the colon and rectum suggesting constipation. 3. Diverticulosis but no evidence of acute diverticulitis. Electronically signed by: Farhana Lin MD 12/31/2023 10:09 AM EDT RP Abdomen Ultrasound 12/31/23 09:41 IMPRESSION: Positive Walker sign without sonographic evidence of cholecystitis. Electronically signed by: Carine Peralta MD 12/31/2023 09:56 AM EDT RP Medications Medications Current Medications Acetaminophen (Acetaminophen 325 Mg Tablet) 650 mg PO Q6H PRN PRN Reason: Headache/Pain Mild Scale (1-3) Al Hydroxide/Mg Hydroxide (Magnesium Hydrox/Alum Hydrox 30 Ml Oral.Susp) 30 ml PO Q6H PRN PRN Reason: Heartburn/Nausea Apixaban (Apixaban 5 Mg Tablet) 5 mg PO BID [facility] Last Admin: 01/09/24 08:25 Dose: 5 mg Buprenorphine/Naloxone (Buprenorphine/Naloxone 8/2 Mg Film) 1 film BUCCAL TID [facility] Last Admin: 01/09/24 08:25 Dose: 1 film Doxazosin Mesylate (Doxazosin Mesylate 2 Mg Tablet) 4 mg PO BEDTIME [facility]; Protocol Last Admin: 01/08/24 22:13 Dose: Not Given Famotidine (Famotidine 20 Mg Tablet) 40 mg PO BEDTIME [facility] Last Admin: 01/08/24 22:13 Dose: Not Given Hydroxyzine HCl (Hydroxyzine Hcl 50 Mg Tablet) 50 mg PO TID PRN PRN Reason: Anxiety Last Admin: 01/09/24 09:23 Dose: 50 mg Lorazepam (Lorazepam 1 Mg Tablet) 1 mg PO DAILY PRN PRN Reason: Anxiety Last Admin: 01/07/24 09:15 Dose: 1 mg Magnesium Hydroxide (Milk Of Magnesia 30 Ml Oral.Susp) 30 ml PO DAILY PRN PRN Reason: Constipation Melatonin (Melatonin 3 Mg Tablet) 6 mg PO ONCE PRN PRN Reason: Sleep Last Admin: 01/01/24 20:42 Dose: 6 mg Metoprolol Tartrate (Metoprolol Tartrate 25 Mg Tablet) 25 mg PO BID [facility]; Protocol Last Admin: 01/09/24 08:25 Dose: Not Given Nicotine Polacrilex (Nicotine Polacrilex 2 Mg Gum) 4 mg BUCCAL Q2H PRN PRN Reason: Nicotine Cravings Non-Formulary Medication (Nebivolol) 5 mg PO DAILY [facility] Last Admin: 01/09/24 08:26 Dose: Not Given Omeprazole (Omeprazole 40 Mg Capsule.Dr) 40 mg PO DAILY@0630 [facility] Last Admin: 01/09/24 08:24 Dose: 40 mg Polyethylene Glycol (Polyethylene Glycol 3350 17 Gm Powd.Pack) 17 gm PO DAILY PRN PRN Reason: Constipation Last Admin: 01/04/24 09:17 Dose: 17 gm Senna (Sennosides 8.6 Mg Tablet) 17.2 mg PO DAILY [facility] Last Admin: 01/09/24 08:24 Dose: 17.2 mg Sertraline HCl (Sertraline Hcl 50 Mg Tablet) 50 mg PO DAILY [facility] Last Admin: 01/09/24 08:24 Dose: 50 mg Trazodone HCl (Trazodone Hcl 50 Mg Tablet) 50 mg PO BEDTIME MRX1 PRN PRN Reason: Insomnia Last Admin: 01/07/24 21:23 Dose: 50 mg Allergies Allergies Allergy/AdvReac Type Severity Reaction Status Date / Time No Known Allergies Allergy Verified 12/30/23 08:29 Assessment & Plan Assessment & Plan (1) MDD (major depressive disorder), recurrent episode, moderate: Status: Acute Code(s): F33.1 - Major depressive disorder, recurrent, moderate (2) Opioid use disorder: Status: Acute Code(s): F11.90 - Opioid use, unspecified, uncomplicated (3) Cocaine use disorder: Status: Acute Code(s): F14.10 - Cocaine abuse, uncomplicated Plan Patient is a 53-year-old male with history of MDD, cocaine use disorder who was brought in by ambulance from [facility] complaining of chest pain, which he was medically cleared from and began to report suicidal ideation secondary to increased depression. Plan: CV 15 minutes safety checks Continue home medications Encourage groups Referral to substance abuse program Discharge planning 01/02: Patient reports feeling okay today; pt stated, I'm really tired today because I was woken up by my room mates and staff last night. I'm hoping to sleep better tonight . Pt denies SI/HI/VH/AH. Keeping to self. Continue current tx plan. 01/03: elevated K. recheck BMP in the morning. T/C kayexalate at that point if not trending down. otherwise feeling well. continue current mgmt. 01/04: Active on unit. Pt reports feeling anxious today; pt stated, I'm worried about not having a place to go after here. If I don't get into the [facility] then I'll go to a jail or respite . Pt refused HS Suboxone; c/o constipation. Ordered Senna; pt aware. Pt denies SI/HI/VH/AH. Potassium 4.6 on 12/26/23. 01/05 continue 01/06 urology consult for urinary hesitancy. 01/07: Active on unit. keeping to self. pt reports feeling anxious about my situation ; he reports plan to go to jail if not accepted to [facility]. Pt reports feeling better after bowel movement today. denies SI/HI/VH/AH. 01/08: Active on unit. Pt continues to report feeling anxious ; Pt stated, I'm trying to distract myself with groups . He reports sleeping well last night. Pt reports he declined his HS meds last night d/t nursing waking me up to give them to me late . denies SI/HI/VH/AH. Waiting to hear from [facility] for available bed. Patient educated on: diagnosis, medication risk/benefits and therapeutic strategies Reason for continued inpatient stay Substantial Risk for: med/psych decompensation Time Spent With Patient Time: Total time managing care of this patient today _20___ minutes.
[2024-01-09] MEDS: LORazepam 1 MG TABLET PO (18:37)
[2024-01-09 20:00] VITALS: BP 142/93; PULSE 70; RESP 16; TEMP 36.8; O2SAT 97
--- NOTE | 2024-01-10 | ECG_ITS ---
Test Reason : chest pain Blood Pressure : / mmHG Vent. Rate : 061 BPM Atrial Rate : 061 BPM P-R Int : 166 ms QRS Dur : 098 ms QT Int : 440 ms P-R-T Axes : 054 016 048 degrees QTc Int : 442 ms Normal sinus rhythm Normal ECG When compared with ECG of 31-DEC-2023 10:01, No significant change was found Referred By: Charan Poole Electronically Signed By:DAVID RAMESH
[2024-01-10] MEDS: Omeprazole 40 MG CAPSULE.DR PO (06:46)
[2024-01-10 08:00] VITALS: BP 135/95; PULSE 64; RESP 18; TEMP 36.3; O2SAT 98
[2024-01-10] MEDS: Sertraline HCL 50 MG TABLET PO (08:38)
[2024-01-10] MEDS: Buprenorphine/Naloxone 8/2 mg FILM 1 FILM BUCCAL ×2 (08:38→15:43)
[2024-01-10] MEDS: Sennosides 8.6 MG TABLET 17.2 MG PO (08:38)
[2024-01-10] MEDS: Apixaban 5 MG TABLET PO ×2 (08:38→20:10)
--- NOTE | 2024-01-10 08:59 | P.PNPSI_ITS ---
Subjective Subjective Date of Service: 01/10/24 Reason For Visit: crisis Subjective Notes: Conditional Voluntary Interim History: Active on unit. attending groups. Pt reports feeling okay ; Pt stated, I felt pretty good yesterday afternoon. I don't know why . sleeping well. denies SI/HI/VH/AH. Pt has phone intake with [facility] today. Medication Compliance: Yes Side effects from medications: No Attending Groups: Yes Review of Systems Constitutional: Reports as per HPI Eyes: Reports as per HPI Reports as per HPI Cardiovascular: Reports as per HPI Respiratory: Reports as per HPI Gastrointestinal: Reports as per HPI Genitourinary: Reports as per HPI Musculoskeletal: Reports as per HPI Skin/Breast: Reports as per HPI Reports as per HPI Psychiatric: Reports as per HPI Endocrine: Reports as per HPI Hematologic/Lymphatic: Reports as per HPI Allergic/Immunologic: Reports as per HPI Mental Status Exam Mental Status Exam Narrative: Pt is alert and oriented; behavior is cooperative and calm; dressed in casual attire; mood is described as okay ; eye contact appropriate; Speech is normal rate, volume and not pressured; thought process is organized and goal directed; Thought content is on tx; denies SI/HI/VH/AH. Diagnostics Vital Signs (24Hr): Vital Signs - 24 hr 01/09/24 20:00 Temperature 98.3 F Pulse Rate 70 Respiratory Rate 16 Blood Pressure 142/93 H Pulse Oximetry 97 Oxygen Delivery Method Room Air BMI result Body Mass Index 30.8 Labs 12/31/23 09:59 01/05/24 09:19 Imaging Radiology Impressions: ITS Impressions Chest X-Ray 12/30/23 08:40 IMPRESSION: No acute cardiopulmonary findings. Electronically signed by: Farhana Lin MD 12/30/2023 09:21 AM EDT Abdomen/Pelvis CT 12/31/23 09:15 IMPRESSION: 1. 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 New mild left-sided hydroureteronephrosis without discrete obstructive calculi. Recommend short-term follow-up with ultrasound. 2. Moderate degree of stool content in the colon and rectum suggesting constipation. 3. Diverticulosis but no evidence of acute diverticulitis. Electronically signed by: Farhana Lin MD 12/31/2023 10:09 AM EDT RP Abdomen Ultrasound 12/31/23 09:41 IMPRESSION: Positive Walker sign without sonographic evidence of cholecystitis. Electronically signed by: Carine Peralta MD 12/31/2023 09:56 AM EDT RP Medications Medications Current Medications Acetaminophen (Acetaminophen 325 Mg Tablet) 650 mg PO Q6H PRN PRN Reason: Headache/Pain Mild Scale (1-3) Al Hydroxide/Mg Hydroxide (Magnesium Hydrox/Alum Hydrox 30 Ml Oral.Susp) 30 ml PO Q6H PRN PRN Reason: Heartburn/Nausea Apixaban (Apixaban 5 Mg Tablet) 5 mg PO BID REPLACED BY [facility] Last Admin: 01/10/24 08:38 Dose: 5 mg Buprenorphine/Naloxone (Buprenorphine/Naloxone 8/2 Mg Film) 1 film BUCCAL TID REPLACED BY [facility] Last Admin: 01/10/24 08:38 Dose: 1 film Doxazosin Mesylate (Doxazosin Mesylate 2 Mg Tablet) 4 mg PO BEDTIME REPLACED BY [facility]; Protocol Last Admin: 01/09/24 20:51 Dose: Not Given Famotidine (Famotidine 20 Mg Tablet) 40 mg PO BEDTIME REPLACED BY [facility] Last Admin: 01/09/24 20:51 Dose: Not Given Hydroxyzine HCl (Hydroxyzine Hcl 50 Mg Tablet) 50 mg PO TID PRN PRN Reason: Anxiety Last Admin: 01/09/24 19:28 Dose: 50 mg Lorazepam (Lorazepam 1 Mg Tablet) 1 mg PO DAILY PRN PRN Reason: Anxiety Last Admin: 01/09/24 18:37 Dose: 1 mg Magnesium Hydroxide (Milk Of Magnesia 30 Ml Oral.Susp) 30 ml PO DAILY PRN PRN Reason: Constipation Melatonin (Melatonin 3 Mg Tablet) 6 mg PO ONCE PRN PRN Reason: Sleep Last Admin: 01/01/24 20:42 Dose: 6 mg Metoprolol Tartrate (Metoprolol Tartrate 25 Mg Tablet) 25 mg PO BID [facility]PL[facility]ED [facility]; Protocol Last Admin: 01/10/24 08:41 Dose: Not Given Nicotine Polacrilex (Nicotine Polacrilex 2 Mg Gum) 4 mg BUCCAL Q2H PRN PRN Reason: Nicotine Cravings Non-Formulary Medication (Nebivolol) 5 mg PO DAILY REPLACED BY [facility] Last Admin: 01/10/24 08:42 Dose: Not Given Omeprazole (Omeprazole 40 Mg Capsule.Dr) 40 mg PO DAILY@0630 REPLACED BY [facility] Last Admin: 01/10/24 06:46 Dose: 40 mg Polyethylene Glycol (Polyethylene Glycol 3350 17 Gm Powd.Pack) 17 gm PO DAILY PRN PRN Reason: Constipation Last Admin: 01/04/24 09:17 Dose: 17 gm Senna (Sennosides 8.6 Mg Tablet) 17.2 mg PO DAILY REPLACED BY [facility] Last Admin: 01/10/24 08:38 Dose: 17.2 mg Sertraline HCl (Sertraline Hcl 50 Mg Tablet) 50 mg PO DAILY REPLACED BY [facility] Last Admin: 01/10/24 08:38 Dose: 50 mg Trazodone HCl (Trazodone Hcl 50 Mg Tablet) 50 mg PO BEDTIME MRX1 PRN PRN Reason: Insomnia Last Admin: 01/07/24 21:23 Dose: 50 mg Allergies Allergies Allergy/AdvReac Type Severity Reaction Status Date / Time No Known Allergies Allergy Verified 12/30/23 08:29 Assessment & Plan Assessment & Plan (1) MDD (major depressive disorder), recurrent episode, moderate: Status: Acute Code(s): F33.1 - Major depressive disorder, recurrent, moderate (2) Opioid use disorder: Status: Acute Code(s): F11.90 - Opioid use, unspecified, uncomplicated (3) Cocaine use disorder: Status: Acute Code(s): F14.10 - Cocaine abuse, uncomplicated Plan Patient is a 53-year-old male with history of MDD, cocaine use disorder who was brought in by ambulance from [facility] complaining of chest pain, which he was medically cleared from and began to report suicidal ideation secondary to increased depression. Plan: CV 15 minutes safety checks Continue home medications Encourage groups Referral to substance abuse program Discharge planning 01/02: Patient reports feeling okay today; pt stated, I'm really tired today because I was woken up by my room mates and staff last night. I'm hoping to sleep better tonight . Pt denies SI/HI/VH/AH. Keeping to self. Continue current tx plan. 01/03: elevated K. recheck BMP in the morning. T/C kayexalate at that point if not trending down. otherwise feeling well. continue current mgmt. 01/04: Active on unit. Pt reports feeling anxious today; pt stated, I'm worried about not having a place to go after here. If I don't get into the [facility] then I'll go to a halfway or respite . Pt refused HS Suboxone; c/o constipation. Ordered Senna; pt aware. Pt denies SI/HI/VH/AH. Potassium 4.6 on 12/26/23. 01/05 continue 01/06 urology consult for urinary hesitancy. 01/07: Active on unit. keeping to self. pt reports feeling anxious about my situation ; he reports plan to go to halfway if not accepted to [facility]. Pt reports feeling better after bowel movement today. denies SI/HI/VH/AH. 01/08: Active on unit. Pt continues to report feeling anxious ; Pt stated, I'm trying to distract myself with groups . He reports sleeping well last night. Pt reports he declined his HS meds last night d/t nursing waking me up to give them to me late . denies SI/HI/VH/AH. Waiting to hear from [facility] for available bed. 01/09: Active on unit. attending groups. Pt reports feeling okay ; Pt stated, I felt pretty good yesterday afternoon. I don't know why . sleeping well. denies SI/HI/VH/AH. Pt has phone intake with [facility] today. Patient educated on: diagnosis, medication risk/benefits and therapeutic strategies Reason for continued inpatient stay Substantial Risk for: med/psych decompensation Time Spent With Patient Time: Total time managing care of this patient today _20___ minutes.
[2024-01-10] MEDS: hydrOXYzine HCL 50 MG TABLET PO ×2 (09:12→16:21)
[2024-01-10 17:45] VITALS: BP 157/93; PULSE 63; RESP 18
[2024-01-10] MEDS: Acetaminophen 325 MG TABLET 650 MG PO (17:51)
[2024-01-10] MEDS: Metoprolol Tartrate 12.5 MG HALFTAB PO (17:58)
--- NOTE | 2024-01-10 18:03 | PC.NURSE ---
Patient requesting early administration of Metoprolol 12.5. Refused AM Metoprolol stating he does not take 25 mg. Selin Sanchez NP notified of elevated BP 135/95. New order obtained for 12.5mg, at patient request scheduled for administration 2100. Patient requesting early administration due to palpations . BP currently 157/93. Dr. Poole notified authorized early administration. Patient requested and received Tylenol for c/o discomfort, followed by c/o CP. No diaphoresis or radiation reported. Patient has been observed in common area, sitting quietly watching tv. States he has been experiencing stingers all day.
--- NOTE | 2024-01-10 18:58 | PC.NURSE ---
Stat EKG obtained, NSR. Dr. Poole notified.
[2024-01-10] MEDS: LORazepam 1 MG TABLET PO (19:11)
[2024-01-10 19:58] VITALS: BP 146/100; PULSE 57; RESP 16; O2SAT 97
[2024-01-10] MEDS: hydrALAZINE HCl 25 MG TABLET PO (20:01)
--- NOTE | 2024-01-10 20:05 | PC.NURSE ---
bp 146/100, 57. labs drawn. reports CADENA 08/20. reports generalized abdominal chest discomfort. fully oriented. no dyspnea. 97% RA. color is pink. no diaphoresis. no c/o of dyspepsia or nausea. able to speak with a clear voice.
--- NOTE | 2024-01-10 20:11 | PC.NURSE ---
rates current anxiety 12/20
[2024-01-10 20:59] VITALS: BP 136/92; PULSE 53; RESP 16; O2SAT 98
[2024-01-10 22:07] VITALS: BP 130/84; PULSE 58
[2024-01-10 22:10] LABS: Troponin-I High Sensitivity < 2.7 ng/L (<3.5-35.0)
--- NOTE | 2024-01-10 22:22 | PC.NURSE ---
BP trending down. troponin < 2.7. reports decrease in anxiety. rates 10/20. continues to report mild difused discomfort chest abdomen. retired to bed. o distress noted at this time, ambulating and speaking without distress.
[2024-01-11 06:18] VITALS: BP 134/88; PULSE 62; RESP 16; TEMP 36.6; O2SAT 96
[2024-01-11] MEDS: Omeprazole 40 MG CAPSULE.DR PO (06:18)
[2024-01-11 08:00] VITALS: BP 161/92; PULSE 69; RESP 18; TEMP 36.5; O2SAT 97
[2024-01-11] MEDS: Apixaban 5 MG TABLET PO (08:19)
[2024-01-11] MEDS: Metoprolol Tartrate 12.5 MG HALFTAB PO (08:19)
[2024-01-11] MEDS: Sertraline HCL 50 MG TABLET PO (08:19)
[2024-01-11] MEDS: Sennosides 8.6 MG TABLET 17.2 MG PO (08:19)
[2024-01-11] MEDS: Buprenorphine/Naloxone 8/2 mg FILM 1 FILM BUCCAL (08:19)
[2024-01-11] MEDS: Acetaminophen 325 MG TABLET 650 MG PO (08:26)
[2024-01-11] MEDS: hydrOXYzine HCL 50 MG TABLET PO (08:27)
[2024-01-11] MEDS: Magnesium Hydrox/Alum Hydrox 30 ML ORAL.SUSP PO (08:27)
[2024-01-11 09:40] VITALS: BP 119/68; PULSE 58; RESP 18; O2SAT 95
--- NOTE | 2024-01-11 10:45 | P.DS_ITS ---
DS: Providers Provider Date of Service: 01/11/24 Date of admission: 01/02/24 11:15 Date of discharge: 01/11/24 Primary care physician: Carolyn Khan MD Admitting clinician: Selin Sanchez Attending physician on admission: Win Valentine Consults: 01/07/24 16:06 Consult to Urology Routine Consulting Provider: [facility] Reason for consultation: urinary hesitancy Has provider been notified: Yes Attending physician on discharge: Win Valentine Discharging clinician: Selin Sanchez DS: Diagnosis Discharge Diagnosis (1) MDD (major depressive disorder), recurrent episode, moderate: Status: Acute (2) Opioid use disorder: Status: Acute (3) Cocaine use disorder: Status: Acute DS: Medications Discharge Medications Home Medications: Home Medications ?Medication ?Instructions ?Recorded ?Confirmed apixaban 5 mg tablet (Eliquis) 5 mg PO BID 11/22/23 12/30/23 lorazepam 1 mg tablet 1 mg PO DAILY PRN Anxiety 11/22/23 12/30/23 metoprolol tartrate 25 mg tablet 25 mg PO BID 11/22/23 12/30/23 hydroxyzine HCl 50 mg tablet 50 mg PO TID PRN anxiety 12/24/23 12/30/23 buprenorphine 8 mg-naloxone 2 mg 1 film sublingual TID 12/30/23 12/30/23 sublingual film (Suboxone) famotidine 40 mg tablet 40 mg PO BEDTIME 12/30/23 12/30/23 nebivolol 5 mg tablet 5 mg PO DAILY 12/30/23 12/30/23 omeprazole 40 mg capsule,delayed 40 mg PO DAILY 12/30/23 12/30/23 release sertraline 50 mg tablet 50 mg PO DAILY 12/30/23 12/30/23 Mental Status Exam Mental Status Exam Narrative: Pt is alert and oriented; behavior is cooperative and calm; dressed in casual attire; mood is described as okay ; eye contact appropriate; Speech is normal r ate, volume and not pressured; thought process is organized and goal directed; Thought content is on tx; denies SI/HI/VH/AH. Data Data Completed and Pending Completed studies during hospitalization [Text1]: 01/05/24 01/10/24 09:19 20:00 Hold Purple Top SEE NOTE Sodium 139 Potassium 4.6 Chloride 103 Carbon Dioxide 30 H Anion Gap 11 L BUN 14 Creatinine 1.00 Estim Creat Clear Calc 93.9 Estimated GFR > 60 Random Glucose 155 H Calcium 9.4 Troponin I High Sens < 2.7 Imaging Diagnostic Imaging Impressions Chest X-Ray 12/30/23 08:40 IMPRESSION: No acute cardiopulmonary findings. Electronically signed by: Farhana Lin MD 12/30/2023 09:21 AM EDT RP Abdomen/Pelvis CT 12/31/23 09:15 IMPRESSION: 1. 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 New mild left-sided hydroureteronephrosis without discrete obstructive calculi. Recommend short-term follow-up with ultrasound. 2. Moderate degree of stool content in the colon and rectum suggesting constipation. 3. Diverticulosis but no evidence of acute diverticulitis. Electronically signed by: Farhana Lin MD 12/31/2023 10:09 AM EDT RP Abdomen Ultrasound 12/31/23 09:41 IMPRESSION: Positive Walker sign without sonographic evidence of cholecystitis. Electronically signed by: Carine Peralta MD 12/31/2023 09:56 AM EDT RP DS: Summary Hospital Course Hospital Course: Patient is a 53-year-old male with history of MDD, cocaine use disorder who was brought in by ambulance from [facility] complaining of chest pain, which he was medically cleared from and began to report suicidal ideation secondary to increased depression. Per crisis report, patient was brought to ER from [facility] with complaints of chest pain. He was medically cleared and referred to the care team due to endorsing SI. Patient was recently discharged from on 12/18/23. Patient was referred to [facility]. He reported [facility] not being helpful and does not wish to return. Patient reported suicidal ideation with plan to overdose on drugs or jump into traffic. He denies HI/AH/VH. Patient reports ongoing medical conditions for the past year which have caused him to lose his job and become homeless. Per report, patient has been using crack cocaine and alcohol daily. History of abusing amphetamines. During admission assessment, patient presents alert and oriented x3. Calm and cooperative. Patient reports feeling depressed ; patient stated, I'm feeling hopeless and helpless. My life is making me feel this way. I have been dealing with doctors and specialists and they do not know what is wrong with me. I lost my job and then my apartment and my car. I want help getting into a program . Patient reports suicidal ideation with no plan. Denies history of SIB/SA. Patient reports he was recently started on Zoloft at [facility]. Patient reports last using crack 2 weeks ago but denies daily use. Denies any other substance use. Utox positive for barbiturates and buprenorphine. Plan: CV 15 minutes safety checks Continue home medications Encourage groups Referral to substance abuse program Discharge planning Patient reports feeling okay today; pt stated, I'm really tired today because I was woken up by my room mates and staff last night. I'm hoping to sleep better tonight . Pt denies SI/HI/VH/AH. Keeping to self. Continue current tx plan. elevated K. recheck BMP in the morning. T/C kayexalate at that point if not trending down. otherwise feeling well. continue current mgmt. Active on unit. Pt reports feeling anxious today; pt stated, I'm worried about not having a place to go after here. If I don't get into the [facility] then I'll go to a alf or respite . Pt refused HS Suboxone; c/o constipation. Ordered Senna; pt aware. Pt denies SI/HI/VH/AH. Potassium 4.6 on 12/26/23. urology consult for urinary hesitancy. Active on unit. keeping to self. pt reports feeling anxious about my situation ; he reports plan to go to alf if not accepted to [facility]. Pt reports feeling better after bowel movement today. denies SI/HI/VH/AH. Active on unit. Pt continues to report feeling anxious ; Pt stated, I'm trying to distract myself with groups . He reports sleeping well last night. Pt reports he declined his HS meds last night d/t nursing waking me up to give them to me late . denies SI/HI/VH/AH. Waiting to hear from [facility] for available bed. Active on unit. attending groups. Pt reports feeling okay ; Pt stated, I felt pretty good yesterday afternoon. I don't know why . sleeping well. denies SI/HI/VH/AH. Pt has phone intake with [facility] today. Patient accepted to [facility]. Pt reports feeling anxious about going to program but feels okay . Denies SI/HI/VH/AH. Pt reports he plans on following up with his outpatient providers. Time spent discussing smoking cessation with patient: 3 to 10 minutes Status at Discharge Cognitive/behavioral status at discharge: Patient was interviewed prior to discharge and found to be fully oriented and without SI or HI. Patient has insight and demonstrates good judgment in terms of wanting to pursue treatment. Patient has a safety plan that includes presenting to the closest ER or calling 911 if feeling unsafe. Functional status at discharge: independent ambulation Overall status at discharge: patient is back to baseline Time Spent with Patient Time attestation: Total time managing care of this patient today _20___ minutes. Time spent: Less than 30 minutes Discharge Plan Discharge Anticipated Discharge Date/Time: 01/11/24 13:00 Patient Disposition: Xfer Other Discharge Diagnosis: MDD, [place], Opioid use d/o, cocaine use d/o Referrals: [facility] ([facility]) [Other] - 1 Week (*Please follow up with [facility] upon discharge ([phone]. [phone]) to check in. ) Yisel Bland (Suboxone) [Other] - 01/19/24 11:45 am (TELEHEALTH APPOINTMENT) Carolyn Khan MD [Primary Care Provider] - Discharge Medications: New buprenorphine-naloxone [Suboxone] 8-2 mg Film 1 film buccal TID 7 Days Qty: 21 3RF Continued famotidine 40 mg tablet 40 mg PO BEDTIME 30 Days Qty: 30 0RF hydroxyzine HCl 50 mg tablet 50 mg PO TID PRN (Reason: anxiety) 30 Days Qty: 90 0RF omeprazole 40 mg capsule,delayed release(DR/EC) 40 mg PO DAILY 30 Days Qty: 30 0RF lorazepam 1 mg tablet 1 mg PO DAILY PRN (Reason: Anxiety) 7 Days Qty: 7 3RF sertraline 50 mg tablet 50 mg PO DAILY 30 Days Qty: 30 0RF nebivolol 5 mg tablet 5 mg PO DAILY 30 Days Qty: 30 0RF Eliquis 5 mg tablet 5 mg PO BID 30 Days Qty: 60 0RF Changed metoprolol tartrate 25 mg tablet 12.5 mg PO BID 30 Days Qty: 30 0RF Protocol: Hold for HR <: HOLD for HR < : 60 Rx Instructions: holds for low hr <65 and low bp Discontinued buprenorphine-naloxone [Suboxone] 8-2 mg film 1 film sublingual TID Discharge Orders: Discharge Order (Routine); Ordered 01/11/24 Ordered By: Selin Sanchez Diet: Regular diet Activity on Discharge: As tolerated Stand Alone Forms: Patient Portal Discharge page, Community Support Print Language: Uzbek Care Plan Goals: Maintain mood and safe behaviors Take medications as prescribed Continue to pursue sobriety Practice coping skills Continue with outpatient providers and reach out to them as needed Health Concerns: Mood stability and behaviors Sobriety Plan of Treatment: Follow up with your PCP, psychiatric provider and other outpatient providers regarding above concerns Take medications as prescribed Assessment: Patient was interviewed prior to discharge and found to be fully oriented and without SI or HI. Patient has insight and demonstrates good judgment in terms of wanting to pursue treatment. Patient has a safety plan that includes presenting to the closest ER or calling 911 if feeling unsafe. Discharge Date/Time: 01/11/24 13:50
[2024-01-11] MEDS: LORazepam 1 MG TABLET PO (11:00)
[2024-01-11] MEDS: Ondansetron ODT 8 MG TAB.RAPDIS TRANSLINGU (11:01)
== END 2024-01-11 13:50 | disposition other institution (70) | DRG 751 ==
LOC: HO.ED 01-02 11:59 → HO.PADLT16 01-02 12:57
PROVIDERS: Psychiatry & Neurology Psychiatry; Admitting Provider Registered Nurse; Emergency Provider Emergency Medicine; PCP Family Medicine; Responsible Provider Registered Nurse; Visit Provider Psychiatry & Neurology Psychiatry
DX: F33.1 Major depressive disorder, recurrent, moderate (principal); N13.30 Unspecified hydronephrosis; F14.10 Cocaine abuse, uncomplicated; F41.1 Generalized anxiety disorder; Z87.891 Personal history of nicotine dependence; Z59.02 Unsheltered homelessness; Z79.01 Long term (current) use of anticoagulants; Z79.899 Other long term (current) drug therapy
CPT/HCPCS: 36415; 71045; 74176; 76705; 80048; 80053; 80061; 80076; 80307; 81003; 83690; 83735; 84484; 85025; 93005; 99285; S9485

== ENCOUNTER → 2023-12-30 18:38 | Outpatient (BNV) | payer MEDICAID, SELFPAY | PROVIDERS: Emergency Provider Emergency Medicine; PCP Family Medicine; Visit Provider Internal Medicine | DX: R07.9 Chest pain, unspecified (principal) | CPT/HCPCS: 93010 ==

== ENCOUNTER → 2023-12-31 09:16 | Outpatient (BNV) | payer MEDICAID, SELFPAY | PROVIDERS: Emergency Provider Emergency Medicine; PCP Family Medicine; Visit Provider Internal Medicine | DX: R10.9 Unspecified abdominal pain (principal) | CPT/HCPCS: 93010 ==

== ENCOUNTER 2024-01-02 11:15 | Outpatient (BNV) | payer MEDICAID, SELFPAY | END 2024-01-10 18:23 | PROVIDERS: Admitting Provider Registered Nurse; Emergency Provider Emergency Medicine; PCP Family Medicine; Responsible Provider Registered Nurse; Visit Provider Internal Medicine | DX: R07.9 Chest pain, unspecified (principal) | CPT/HCPCS: 93010 ==

== ENCOUNTER → 2024-01-02 11:15 | Outpatient (BNV) | payer MEDICAID, SELFPAY | PROVIDERS: Admitting Provider Registered Nurse; Emergency Provider Emergency Medicine; PCP Family Medicine; Responsible Provider Registered Nurse; Visit Provider Urology | DX: R39.11 Hesitancy of micturition (principal) | CPT/HCPCS: 99222 ==

== ENCOUNTER → 2024-01-02 11:15 | Outpatient (BNV) | payer OTHER, SELFPAY | PROVIDERS: Admitting Provider Registered Nurse; Emergency Provider Emergency Medicine; PCP Family Medicine; Responsible Provider Registered Nurse; Visit Provider Registered Nurse | DX: F33.1 Major depressive disorder, recurrent, moderate (principal); F11.90 Opioid use, unspecified, uncomplicated; F14.10 Cocaine abuse, uncomplicated | CPT/HCPCS: 90792; 99231; 99232; 99238 ==

== ENCOUNTER 2024-03-03 07:57 | Emergency (ER) | payer OTHER, MEDICAID, SELFPAY ==
--- NOTE | ~2024-03-03 | XR_ITS ---
EXAMINATION: XR CHEST CLINICAL INFORMATION: cocugh, SOB COMPARISON: Chest radiograph from 12/30/2023 TECHNIQUE: 2 views of the chest were obtained. FINDINGS: Slight interstitial prominence. No pneumothorax. Trachea is midline. Cardiac and mediastinal silhouette is not enlarged. No large pleural effusion. Osseous structures are intact. Soft tissues are unremarkable. XR/XR chest 2V IMPRESSION: Slight interstitial prominence. Electronically signed by: Carine Peralta MD 03/03/2024 09:52 AM DION
--- NOTE | 2024-03-03 08:04 | ED_ITS ---
HPI - URI/Sore Throat General Chief Complaint: Upper Respiratory Symptoms Stated Complaint: FLU LIKE SYMPTOMS Time Seen by Provider: 03/03/24 08:01 Source: patient Mode of arrival: ambulatory Limitations: no limitations History of Present Illness ED Provider: Nicole Naylor NP HPI Narrative: Patient is a 53-year-old male with past medical history of anxiety, depression, polysubstance use disorder, ETOH use disorder, history of atrial fibrillation, history of PE on Eliquis, GERD who presents to the emergency department for evaluation of 3 days with tactile fever, sore throat, productive cough with brown phlegm, mild shortness of breath, mid upper abdominal pain exacerbates with cough, nausea but no vomiting, diffuse lower back pain. Denies chills, headache, dizziness, neck pain, neck stiffness, chest pain, numbness or tingling of the extremities, genitourinary symptoms. Related Data Previous Rx's ?Medication ?Instructions ?Recorded apixaban 5 mg tablet (Eliquis) 5 mg PO BID 30 days #60 tabs 01/11/24 buprenorphine 8 mg-naloxone 2 mg 1 film buccal TID 7 days #21 ea 01/11/24 sublingual film (Suboxone) famotidine 40 mg tablet 40 mg PO BEDTIME 30 days #30 tabs 01/11/24 hydroxyzine HCl 50 mg tablet 50 mg PO TID PRN anxiety 30 days 01/11/24 #90 tabs lorazepam 1 mg tablet 1 mg PO DAILY PRN Anxiety 7 days 01/11/24 #7 tabs metoprolol tartrate 25 mg tablet 12.5 mg PO BID 30 days #30 tabs 01/11/24 nebivolol 5 mg tablet 5 mg PO DAILY 30 days #30 tabs 01/11/24 omeprazole 40 mg capsule,delayed 40 mg PO DAILY 30 days #30 caps 01/11/24 release sertraline 50 mg tablet 50 mg PO DAILY 30 days #30 tabs 01/11/24 Allergies Allergy/AdvReac Type Severity Reaction Status Date / Time No Known Allergies Allergy Verified 03/03/24 08:13 Review of Systems Review of Systems: Yes all other systems are reviewed and are negative PMFSH Past Medical History Attestation statement: The following information was validated with the patient. 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 No acute distress.?Normal affect. Eyes: Pupils equal, round and reactive to light.? ENT: TM normal bilaterally. Pharynx normal.?? Neck: Normal inspection.? Neck supple.??No cervical adenopathy CVS: Heart sounds normal. Normal heart rate and rhythm.? Pulses normal.?? Respiratory: No respiratory distress.? Lung sounds clear to auscultation bilaterally?? Abdomen: Soft and non-tender. Normoactive bowel sounds. Skin: Skin warm and dry.? Normal skin color.? ? Extremities: No lower extremity edema.? Neuro: Moves all extremities spontaneously. Sensation intact bilaterally. No motor deficits. Ambulates with normal steady gait. Medical Decision Making Medical Decision Making MDM Narrative: Patient is a 53-year-old male with past medical history of anxiety, depression, polysubstance use disorder, ETOH use disorder, history of atrial fibrillation, history of PE on Eliquis, GERD presents emergency department for evaluation tactile fever, sore throat, productive cough, upper 'abdominal pain' pinting to low costal marging bilaterally thats associated with and exacerbated by cough, nausea, generalized low back pain symptom onset was 3 days ago. Reports some sick contacts with others in his [facility] program. COVID-19/influenza/RSV testing negative. 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 Does endorse upper abdominal pain exacerbated with cough and nausea, this may be secondary to inflammation/pleurisy in the setting of respiratory illness, however he does have a history of GERD as well and states he has been compliant with his antacid medications, may possibly be secondary to GERD/gastritis. Abdominal examination is benign, lower suspicion for acute cholecystitis, pancreatitis, no hematemesis to suggest PUD. Given the cough and shortness of breath, obtaining CXR to evaluate for pneumonia, no associated chest pain, lower suspicion for ACS, Wells score low risk unlikely pulmonary embolism. Overall he is well-appearing, nontoxic, afebrile, no tachycardia or tachypnea/hypoxia. Speaking clear full sentences, ambulatory with steady gait. Discussed conservative treatment including rest, hydration, Tylenol/ibuprofen as needed for fever and body aches, saline nasal spray, humidifier, cplw-vyu-cguakyn cold medication. Advised to follow-up with primary care provider as needed, discussed reasons to return back to the emergency department. All questions were answered. Patient discharged home in stable condition. Differential Diagnosis Differential Diagnoses: The differential diagnosis associated with the presentation includes ( See narrative above) Admission/Observation Consideration of admission/observation: Escalation of care including admission/observation considered ( see narrative above) Lab Data MDM Lab Attestation statement: I reviewed the patient's lab results. ( see narrative above) Labs: Lab Results 03/03/24 Range/Units 08:40 Urine Color Yellow Urine Appearance Cloudy Urine pH 6.5 (5.0-9.0) Ur Specific [place] 1.020 (1.005-1.025) Urine Protein Negative (Neg-Trace) mg/dL Urine Glucose (UA) Negative (Negative) mg/dL Urine Ketones Negative (Negative) mg/dL Urine Blood Negative (Negative) Urine Nitrite Negative (Negative) Ur Leukocyte Esterase Negative (Negative) Influenza Type A (PCR) NEGATIVE (Negative) Influenza Type B (PCR) NEGATIVE (Negative) RSV RNA Qual (PCR) NEGATIVE (Negative) SARS-CoV-2 RNA (RT-PCR) NEGATIVE (Negative) S. pyogenes GrpA DAYDAY Negative (Negative) Independent Interpretation I performed an independent interpretation of an: Plain X-Ray (No consolidation or infiltrate) Radiology Impression Discussion of test interpretation with radiology: I have reviewed the radiologist's reading. Radiologist Impression: FINDINGS: Slight interstitial prominence. No pneumothorax. Trachea is midline. Cardiac and mediastinal silhouette is not enlarged. No large pleural effusion. Osseous structures are intact. Soft tissues are unremarkable. XR/XR chest 2V IMPRESSION: Slight interstitial prominence. Independent Historian Clinical information obtained from an independent historian. History obtained from or confirmed by: EMS External Record Review External record reviewed: Outpatient record Prescription Management I considered prescription management with: Pain Medication ( acetaminophen/ibuprofen) Chronic Conditions Patient?s care impacted by: Other (See narrative above) Discharge Plan Discharge Clinical Impression: Upper respiratory infection Patient Disposition: Home, Self-Care Instructions: Upper Respiratory Infection (ED) Additional Instructions: Testing today for covid-19, flu, and RSV and strep throat testing is negative today. Chest x-ray does not show any evidence of pneumonia. There is no current indication for antibiotics. Be sure to rest, stay well hydrated drinking plenty of fluids, eat small frequent meals. Tylenol/ibuprofen can be used as needed for fever/pain. Soga-atb-prcslrt cold medications may be helpful as well for symptoms. Saline nasal spray, humidifier may be helpful for nasal congestion. You may return to the emergency department with any new or worsening symptoms or concerns. Follow-up with your primary care provider as needed. Should remain out of school/ work until symptoms have resolved and have been without a fever for 24 hours without the use of Tylenol or ibuprofen. Prescriptions: No Action buprenorphine-naloxone [Suboxone] 8-2 mg Film 1 film buccal TID 7 Days Qty: 21 3RF famotidine 40 mg tablet 40 mg PO BEDTIME 30 Days Qty: 30 0RF hydroxyzine HCl 50 mg tablet 50 mg PO TID PRN (Reason: anxiety) 30 Days Qty: 90 0RF omeprazole 40 mg capsule,delayed release(DR/EC) 40 mg PO DAILY 30 Days Qty: 30 0RF lorazepam 1 mg tablet 1 mg PO DAILY PRN (Reason: Anxiety) 7 Days Qty: 7 3RF sertraline 50 mg tablet 50 mg PO DAILY 30 Days Qty: 30 0RF metoprolol tartrate 25 mg tablet 12.5 mg PO BID 30 Days Qty: 30 0RF Protocol: Hold for HR <: HOLD for HR < : 60 Rx Instructions: holds for low hr <65 and low bp nebivolol 5 mg tablet 5 mg PO DAILY 30 Days Qty: 30 0RF Eliquis 5 mg tablet 5 mg PO BID 30 Days Qty: 60 0RF Referrals: Yisel Bland FNP [Primary Care Provider] - Print Language: Moldovan
[2024-03-03 08:10] VITALS: BP 126/86; BP 136/86; PULSE 68; PULSE 70; RESP 18; TEMP 37; O2SAT 98; BMI 31.3
[2024-03-03 08:56] LABS: Appearance Urine Cloudy; Color Urine Yellow; Glucose Urine UA Negative (Negative); Leukocyte Esterase Urine Negative (Negative); Nitrite Urine Negative (Negative); PH 6.5 (5.0-9.0); Urine Blood Negative (Negative); Urine Ketones Negative (Negative); Urine Protein Negative (Neg-Trace)
[2024-03-03 09:03] LABS: IDNOW Serial# 58CA691E; Strep A Nucleic Acid Negative (Negative)
[2024-03-03 09:41] LABS: Influenza A PCR NEGATIVE (Negative); Influenza B PCR NEGATIVE (Negative); Resp Syncy Virus RNA Qual PCR NEGATIVE (Negative); SARS COV2 PCR INHOUSE NEGATIVE (Negative)
[2024-03-03 10:18] VITALS: BP 115/78; PULSE 59; RESP 13; TEMP 37.2; O2SAT 95
[2024-03-03 11:45] VITALS: BP 115/78; PULSE 59; RESP 13; TEMP 37.2; O2SAT 95
== END 2024-03-03 11:45 | disposition home or self-care (01) ==
PROVIDERS: Nurse Practitioner Family; Emergency Provider Emergency Medicine Emergency Medical Services; PCP Nurse Practitioner Family
DX: J06.9 Acute upper respiratory infection, unspecified (principal); J02.9 Acute pharyngitis, unspecified; R05.9 Cough, unspecified; R06.02 Shortness of breath; R10.2 Pelvic and perineal pain; M54.50 Low back pain, unspecified; Z03.818 Encounter for observation for suspected exposure to other biological agents ruled out; Z79.01 Long term (current) use of anticoagulants; Z86.711 Personal history of pulmonary embolism; Z79.899 Other long term (current) drug therapy
CPT/HCPCS: 0241U; 71046; 81003; 87651; 99283

== ENCOUNTER 2024-03-04 17:00 | Emergency (ER) | payer MEDICAID, SELFPAY ==
--- NOTE | 2024-03-04 | ECG_ITS ---
Test Reason : CP Blood Pressure : / mmHG Vent. Rate : 071 BPM Atrial Rate : 071 BPM P-R Int : 154 ms QRS Dur : 092 ms QT Int : 392 ms P-R-T Axes : 058 035 067 degrees QTc Int : 425 ms Normal sinus rhythm Low voltage QRS Borderline ECG When compared with ECG of 10-JAN-2024 18:23, No significant change was found Referred By: Generic ED Physician Electronically Signed By:Jonel Maxwell
--- NOTE | ~2024-03-04 | XR_ITS ---
EXAMINATION: XR CHEST CLINICAL INFORMATION: Chest pain. COMPARISON: Prior chest radiographs, most recently 03/01/2024; CTA chest dated 12/28/2023. TECHNIQUE: Frontal view of the chest was obtained. FINDINGS: No significant abnormality is noted involving the heart, lungs, mediastinum, bony thorax or soft tissues. Lung volumes are mildly diminished, with some crowding of bronchovascular and pulmonary parenchymal markings. XR/XR chest 1V IMPRESSION: Unremarkable examination. Electronically signed by: Oral Velazquez MD 03/04/2024 07:47 PM EST
[2024-03-04 17:11] VITALS: BP 121/80; PULSE 82; O2SAT 95
[2024-03-04 17:15] VITALS: BP 121/75; PULSE 73; RESP 20; TEMP 37.7; O2SAT 94; BMI 30.8
[2024-03-04 17:21] VITALS: PULSE 72
--- NOTE | 2024-03-04 17:42 | ECG_ITS ---
Test Reason : cp Blood Pressure : / mmHG Vent. Rate : 065 BPM Atrial Rate : 065 BPM P-R Int : 158 ms QRS Dur : 096 ms QT Int : 420 ms P-R-T Axes : 037 001 035 degrees QTc Int : 436 ms Normal sinus rhythm Low voltage QRS Borderline ECG When compared with ECG of 04-MAR-2024 17:21, No significant change was found Referred By: Adrian Ness Electronically Signed By:Jonel Maxwell
--- NOTE | 2024-03-04 17:51 | ED.CHESTPAIN ---
HPI - Chest Pain General Chief Complaint: Chest Pain Stated Complaint: Chest pain Time Seen by Provider: 03/04/24 17:41 Source: patient and EMS Mode of arrival: EMS Limitations: no limitations History of Present Illness ED Provider: DR. Ness HPI narrative: This is a 53-year-old male with past medical history of anxiety, depression, polysubstance use disorder, ETOH use disorder, history of AFib on Eliquis, history of pulmonary embolism on Eliquis, patient presented today for evaluation of chest pain started since this morning, patient was seen yesterday in the emergency department for evaluation of 3 days' symptoms of upper respiratory infection and exposure to a sick patient was discharged after negative workup in the emergency department yesterday. Returned today for evaluation of left-sided chest pain that is been constant since early today, no radiation, no shortness of breath. No recent travel, no prolonged immobilization, no lower extremity swelling or tenderness, no SOB. Patient had sore throat, congestion and coughing. Related Data Previous Rx's ?Medication ?Instructions ?Recorded apixaban 5 mg tablet (Eliquis) 5 mg PO BID 30 days #60 tabs 01/11/24 buprenorphine 8 mg-naloxone 2 mg 1 film buccal TID 7 days #21 ea 01/11/24 sublingual film (Suboxone) famotidine 40 mg tablet 40 mg PO BEDTIME 30 days #30 tabs 01/11/24 hydroxyzine HCl 50 mg tablet 50 mg PO TID PRN anxiety 30 days 01/11/24 #90 tabs lorazepam 1 mg tablet 1 mg PO DAILY PRN Anxiety 7 days 01/11/24 #7 tabs metoprolol tartrate 25 mg tablet 12.5 mg PO BID 30 days #30 tabs 01/11/24 nebivolol 5 mg tablet 5 mg PO DAILY 30 days #30 tabs 01/11/24 omeprazole 40 mg capsule,delayed 40 mg PO DAILY 30 days #30 caps 01/11/24 release sertraline 50 mg tablet 50 mg PO DAILY 30 days #30 tabs 01/11/24 Allergies Allergy/AdvReac Type Severity Reaction Status Date / Time No Known Allergies Allergy Verified 03/04/24 17:18 Review of Systems Review of Systems: All other systems are reviewed and are negative Constitutional: Reports as per HPI and Reports no additional constitutional complaints Eyes: Reports as per HPI and Reports no additional eye complaints Reports system reviewed and no additional complaints, except as documented Cardiovascular: Reports as per HPI and Reports no additional cardiovascular complaints Respiratory: Reports as per HPI and Reports no additional respiratory complaints Gastrointestinal: Reports as per HPI and Reports no additional gastrointestinal complaints Genitourinary: Reports no additional female genitourinary complaints Musculoskeletal: Reports no additional musculoskeletal complaints Skin/Breast: Reports system reviewed and no additional complaints, except as docu Psychiatric: Reports no additional psychiatric complaints Endocrine: Reports no additional endocrine complaints Hematologic/Lymphatic: Reports no additional hematologic/lymphatic complaints Allergic/Immunologic: Reports no additional allergic/immunologic complaints Reports system reviewed and no additional complaints, except as documented and Reports Abnormal speech present [facility] Past Medical History Medical History Atypical chest pain Social History Social History Household Members: None Housing: Homeless Do you presently have visiting nurse or other home services: Yes ([employer]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) Alcohol intake: current Alcohol intake frequency: a few times a week Alcohol type: hard liquor Patient Tobacco Use Status: Former Tobacco user Smoked in Last 30 Days: No Use of substances other than those prescribed or required for medical reasons: No Substance Use Type: Amphetamines, Club/Customer Solutions Supervisor Drugs, Crack/Cocaine, Heroin, Marijuana, Methamphetamine, Painkillers and Prescription Drugs Advance Directives: No Advance Directives Information Provided: No Do you have a plan to hurt others: No Plan service: No Sexual orientation: Straight/Heterosexual Physical Exam Vital Signs: Vital Signs: Last Vital Signs Temp 98.5 F 03/04/24 20:19 Pulse 60 03/04/24 20:19 Resp 16 03/04/24 20:19 BP 103/58 L 03/04/24 20:19 Pulse Ox 94 03/04/24 20:19 O2 Del Method Room Air 03/04/24 20:19 BMI result Body Mass Index 30.8 Vital signs have been reviewed and appear to be correct. Blood pressure elevated. Heart rate normal. Respiratory rate normal. Temperature normal. Oxygen saturation normal. Appearance: Alert. Oriented X3. No acute distress. Head: Normal external exam. Normocephalic. Atraumatic. No Holley signs noted. No raccoon eyes noted Eyes: PERRLA. EOMI. Conjunctiva and sclera normal. Eyelids normal. ENT: TM's Normal. Pharynx normal. Uvula midline. Moist mucous membranes. No trismus noted. No drooling noted. No muffled voice noted. Neck: Normal inspection. Neck supple. FROM. No adenopathy. Thyroid Normal. No meningeal signs. No neck mass noted. CVS: Normal heart rate and rhythm. Heart sound normal. No murmurs noted. Pulses normal throughout. Respiratory: No respiratory distress. Painless inspiration. Breath sounds normal. No wheezes/rales/rhonchi noted. Chest nontender. No accessory muscle usage noted or decreased air movement noted. Abdomen: Soft and nontender. Bowel sounds normal in all 4 quadrants. No distention noted. No organomegaly noted. No visible injury noted. Back: No CVA tenderness. Full range of motion noted. Skin: Skin warm and dry. Normal skin color. Normal skin turgor. No rashes/lesions/lacerations noted. Extremities: No lower extremity edema. Extremities exhibit normal range of motion. Extremities nontender. Neuro: Oriented X 3. Cranial nerve exam: II-XII are grossly intact No motor deficit. No sensory deficit. Reflexes normal. Course Reevaluation(s) Reevaluation #1: 3-4 days symptoms of acute viral syndrome with chest pain. Patient had HEART SCORE OF 0, D-dimer is unremarkable to suggest pulmonary embolism, stable vital signs heart rate/RRR/O2 sat. Time: 20:24 Medical Decision Making Differential Diagnosis Differential Diagnoses: The differential diagnosis associated with the presentation includes (ACS, pneumonia, pneumothorax, pleural effusion, pulmonary embolism, electrolyte derangement, severe anemia, rapid strep, upper viral respiratory infection.) Admission/Observation Consideration of admission/observation: Escalation of care including admission/observation considered Lab Data MDM Lab Attestation statement: I reviewed the patient's lab results. 03/04/24 18:24 03/04/24 18:24 Labs: Lab Results 03/04/24 03/04/24 Range/Units 18:24 18:27 WBC 8.5 (4.8-10.8) X10*3/uL RBC 4.22 L (4.60-5.80) X10*6/uL Hgb 12.9 L (14.0-18.0) g/dl Hct 37.4 L (42.0-52.0) % MCV 88.6 (80.0-98.0) fL MCH 30.6 (27.0-33.0) pg MCHC 34.5 (31.0-36.0) g/dl RDW 12.4 (11.0-16.0) % Plt Count 250 D (160-400) X10*3/uL MPV 8.7 L (9.4-12.4) fL Immature Gran % (Auto) 0.2 (0.0-0.4) % Neut % (Auto) 77.2 H (45-73) % Lymph % (Auto) 12.4 L (20-40) % [place] % (Auto) 8.9 (2-11) % Eos % (Auto) 0.8 (0-4) % Baso % (Auto) 0.5 (0-2) % Lymph # (Auto) 1.1 L (1.2-4.9) X10*3/uL [place] # (Auto) 0.8 (0.1-1.2) X10*3/uL Eos # (Auto) 0.1 (0.0-0.4) X10*3/uL Baso # (Auto) 0.0 (0.0-0.2) X10*3/uL Abs Immat Gran (auto) 0.02 (0.00-0.03) X10*3/uL Absolute Neuts (auto) 6.5 (2.0-8.3) x10*3/uL Absolute Nucleated RBC 0.000 (0.0-0.012) X10*3/uL Nucleated RBC % (auto) 0.0 (0.0-0.2) /100WBC D-Dimer High Sensitivty < 150 NG/ML Sodium 137 (135-145) mmol/L Potassium 4.4 (3.3-5.1) mmol/L Chloride 105 (96-108) mmol/L Carbon Dioxide 26 (22-29) mmol/L Anion Gap 10 L (12-20) BUN 12 (9-16) mg/dL Creatinine 0.98 (0.5-1.4) mg/dL Estim Creat Clear Calc 105.1 Estimated GFR > 60 Random Glucose 127 H (60-115) mg/dL Calcium 8.7 D (8.4-10.2) mg/dL Total Bilirubin 0.4 (0.0-1.0) mg/dL Direct Bilirubin 0.1 (0.0-0.5) mg/dL AST 31 (5-37) U/L ALT 32 (0-40) U/L Alkaline Phosphatase 81 (39-117) U/L Troponin I High Sens < 2.7 (<3.5-35.0) ng/L Total Protein 6.5 (6.5-8.0) g/dL Albumin 3.7 (3.5-5.0) g/dL Lipase 11 (8-78) U/L Urine Color Yellow Urine Appearance Clear Urine pH 6.5 (5.0-9.0) Ur Specific [place] 1.020 (1.005-1.025) Urine Protein Negative (Neg-Trace) mg/dL Urine Glucose (UA) Negative (Negative) mg/dL Urine Ketones Negative (Negative) mg/dL Urine Blood Negative (Negative) Urine Nitrite Negative (Negative) Ur Leukocyte Esterase Negative (Negative) Influenza Type A (PCR) NEGATIVE (Negative) Influenza Type B (PCR) NEGATIVE (Negative) RSV RNA Qual (PCR) NEGATIVE (Negative) SARS-CoV-2 RNA (RT-PCR) NEGATIVE (Negative) Independent Interpretation I performed an independent interpretation of an: Plain X-Ray (Chest: No acute intrathoracic pathology.) Radiology Impression Discussion of test interpretation with radiology: I have reviewed the radiologist's reading. Discharge Plan Discharge Clinical Impression: Acute viral syndrome Patient Disposition: Home, Self-Care Instructions: Viral Syndrome (ED) Prescriptions: No Action buprenorphine-naloxone [Suboxone] 8-2 mg Film 1 film buccal TID 7 Days Qty: 21 3RF famotidine 40 mg tablet 40 mg PO BEDTIME 30 Days Qty: 30 0RF hydroxyzine HCl 50 mg tablet 50 mg PO TID PRN (Reason: anxiety) 30 Days Qty: 90 0RF omeprazole 40 mg capsule,delayed release(DR/EC) 40 mg PO DAILY 30 Days Qty: 30 0RF lorazepam 1 mg tablet 1 mg PO DAILY PRN (Reason: Anxiety) 7 Days Qty: 7 3RF sertraline 50 mg tablet 50 mg PO DAILY 30 Days Qty: 30 0RF metoprolol tartrate 25 mg tablet 12.5 mg PO BID 30 Days Qty: 30 0RF Protocol: Hold for HR <: HOLD for HR < : 60 Rx Instructions: holds for low hr <65 and low bp nebivolol 5 mg tablet 5 mg PO DAILY 30 Days Qty: 30 0RF Eliquis 5 mg tablet 5 mg PO BID 30 Days Qty: 60 0RF Print Language: Malawian
[2024-03-04 18:00] VITALS: BP 111/70; PULSE 64; RESP 12; TEMP 36.6; O2SAT 94
[2024-03-04 18:32] LABS: MANUAL DIFF FLAG NO
[2024-03-04 18:34] LABS: Basophils Percent Auto 0.5 % (0-2); Eosinophils Absolute Auto 0.1 X10*3/uL (0.0-0.4); Eosinophils Percent Auto 0.8 % (0-4); Hematocrit 37.4 % (42.0-52.0); Hemoglobin 12.9 g/dl (14.0-18.0); Imm Gran Abs Auto 0.02 X10*3/uL (0.00-0.03); Imm Gran Pct Auto 0.2 % (0.0-0.4); Lymphocytes Absolute Auto 1.1 X10*3/uL (1.2-4.9); Lymphocytes Percent Auto 12.4 % (20-40); Mean Corpuscular HGB Conc 34.5 g/dl (31.0-36.0); Mean Corpuscular Hemoglobin 30.6 pg (27.0-33.0); Mean Corpuscular Volume 88.6 fL (80.0-98.0); Mean Platelet Volume 8.7 fL (9.4-12.4); Monocytes Absolute Auto 0.8 X10*3/uL (0.1-1.2); Monocytes Percent Auto 8.9 % (2-11); Neutrophils Absolute Auto 6.5 x10*3/uL (2.0-8.3); Neutrophils Percent Auto 77.2 % (45-73); Platelet Count 250 X10*3/uL (160-400); Red Blood Count 4.22 X10*6/uL (4.60-5.80); Red Cell Distribution Width 12.4 % (11.0-16.0); White Blood Count 8.5 X10*3/uL (4.8-10.8)
[2024-03-04 18:36] LABS: Appearance Urine Clear; Color Urine Yellow; Glucose Urine UA Negative (Negative); Leukocyte Esterase Urine Negative (Negative); Nitrite Urine Negative (Negative); PH 6.5 (5.0-9.0); Urine Blood Negative (Negative); Urine Ketones Negative (Negative); Urine Protein Negative (Neg-Trace)
[2024-03-04 18:50] LABS: Alanine Aminotransferase 32 U/L (0-40); Albumin Level 3.7 g/dL (3.5-5.0); Alkaline Phosphatase 81 U/L (39-117); Anion Gap 10 (12-20); Aspartate Amino Transferase 31 U/L (5-37); Bilirubin Direct 0.1 mg/dL (0.0-0.5); Bilirubin Total 0.4 mg/dL (0.0-1.0); Blood Urea Nitrogen 12 mg/dL (9-16); Calcium 8.7 mg/dL (8.4-10.2); Carbon Dioxide 26 mmol/L (22-29); Chloride 105 mmol/L (96-108); Creatinine Clr Calc Pharmacy 105.1; Estimated Glomerular Filt Rate > 60; Glucose Random 127 mg/dL (60-115); Lipase 11 U/L (8-78); Potassium 4.4 mmol/L (3.3-5.1); Sodium 137 mmol/L (135-145); Total Protein 6.5 g/dL (6.5-8.0)
[2024-03-04 18:59] LABS: D Dimer High Sensitivity < 150 NG/ML
[2024-03-04 19:10] LABS: Influenza A PCR NEGATIVE (Negative); Influenza B PCR NEGATIVE (Negative); Resp Syncy Virus RNA Qual PCR NEGATIVE (Negative); SARS COV2 PCR INHOUSE NEGATIVE (Negative)
[2024-03-04 19:31] LABS: Troponin-I High Sensitivity < 2.7 ng/L (<3.5-35.0)
[2024-03-04 20:19] VITALS: BP 103/58; PULSE 60; RESP 16; TEMP 36.9; O2SAT 94
[2024-03-04 20:29] VITALS: BP 103/58; PULSE 86; RESP 16; TEMP 36.9; O2SAT 98
== END 2024-03-04 20:37 | disposition home or self-care (01) ==
PROVIDERS: Emergency Provider Emergency Medicine
DX: B34.9 Viral infection, unspecified (principal); R05.9 Cough, unspecified; J02.9 Acute pharyngitis, unspecified; Z03.818 Encounter for observation for suspected exposure to other biological agents ruled out; F14.10 Cocaine abuse, uncomplicated
CPT/HCPCS: 0241U; 36415; 71045; 80048; 80076; 81003; 83690; 83880; 84484; 85025; 85379; 93005; 99283; 99284

== ENCOUNTER → 2024-03-04 17:21 | Outpatient (BNV) | payer MEDICAID, SELFPAY | PROVIDERS: Emergency Provider Emergency Medicine; Visit Provider Internal Medicine Cardiovascular Disease | DX: R07.9 Chest pain, unspecified (principal) | CPT/HCPCS: 93010 ==

== ENCOUNTER 2024-10-09 13:22 | Emergency (ER) | payer OTHER, SELFPAY ==
--- NOTE | ~2024-10-09 | XR_ITS ---
EXAMINATION: XR CHEST 2 VIEWS HISTORY: chest pain COMPARISON: Comparison is made with the prior examination dated 03/04/2024. FINDINGS: PA and lateral views of the chest are submitted. The lungs are expanded and clear. There is no pleural effusion, pneumothorax, or pulmonary vascular congestion. The heart is normal in size. The bones are intact. XR/XR chest 2V IMPRESSION: No acute cardiopulmonary abnormality. Electronically signed by: Jani Paris MD 10/09/2024 02:12 PM EDT
[2024-10-09 13:29] VITALS: BP 141/93; PULSE 75; O2SAT 97
[2024-10-09 13:33] VITALS: BP 133/91; PULSE 71; RESP 18; TEMP 36.6; O2SAT 95; BMI 30.7
--- NOTE | 2024-10-09 13:54 | ECG_ITS ---
Test Reason : CP Blood Pressure : */* mmHG Vent. Rate : 69 BPM Atrial Rate : 69 BPM P-R Int : 166 ms QRS Dur : 102 ms QT Int : 414 ms P-R-T Axes : 36 -10 38 degrees QTcB Int : 443 ms Normal sinus rhythm Normal ECG When compared with ECG of 04-Mar-2024 18:09, No significant change was found Referred By: Avel Greene Electronically Signed By: CARA STEELE MD
--- NOTE | 2024-10-09 13:56 | ED_ITS ---
HPI - Dizziness General Chief Complaint: Chest Pain Stated Complaint: L sided tingling, vision changes, fast ED neg Time Seen by Provider: 10/09/24 13:37 Source: patient and EMS Mode of arrival: EMS Limitations: no limitations History of Present Illness ED Provider: HPI Narrative: 54-year-old male with history of anxiety/depression, polstubstance use disorder, ETOH use disorder now sober history of afib, history of PE on eliquis, presenting with left-sided tingling, he states he has had vision changes, felt like his and look like his pupils were pinpoint, this is a recurrent issue and he has had this over many years and he states he has had multiple PCP visits, multiple cardiology evaluations and GI evaluations as well. He presented with a list of medications from [facility] living facility he is staying there, he states otherwise he goes to the gym and he has been having pounding in his chest when he goes up the steps, he does not feel like it is anxiety and he states he has never had anxiety. He does not use drugs. He is not consistent with any of his medications otherwise. Related Data Previous Rx's ?Medication ?Instructions ?Recorded apixaban 5 mg tablet (Eliquis) 5 mg PO BID 30 days #60 tabs 01/11/24 buprenorphine 8 mg-naloxone 2 mg 1 film buccal TID 7 d ays #21 ea 01/11/24 sublingual film (Suboxone) famotidine 40 mg tablet 40 mg PO BEDTIME 30 days #30 tabs 01/11/24 hydroxyzine HCl 50 mg tablet 50 mg PO TID PRN anxiety 30 days 01/11/24 #90 tabs lorazepam 1 mg tablet 1 mg PO DAILY PRN Anxiety 7 days 01/11/24 #7 tabs metoprolol tartrate 25 mg tablet 12.5 mg PO BID 30 day s #30 tabs 01/11/24 nebivolol 5 mg tablet 5 mg PO DAILY 30 days #30 ta bs 01/11/24 omeprazole 40 mg capsule,delayed 40 mg PO DAILY 30 day s #30 caps 01/11/24 release sertraline 50 mg tablet 50 mg PO DAILY 30 days #30 t abs 01/11/24 Allergies Allergy/AdvReac Type Severity Reaction Status Date / Time No Known Allergies Allergy Verified 10/09/24 13:40 Review of Systems 2 Constitutional: Constitutional: Reports as per HPI [facility] Past Medical History Medical History Atypical chest pain Social History Social History Household Members: None Housing: Homeless Do you presently have visiting 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) Alcohol intake: current Alcohol intake frequency: a few times a week Alcohol type: hard liquor Patient Tobacco Use Status: Former Tobacco user Substance Use Type: Amphetamines, 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 [employer] Media Drugs, Crack/Cocaine, Heroin, Marijuana, Methamphetamine, Painkillers and Prescription Drugs Advance Directives: No Advance Directives Information Provided: Yes Do you have a plan to hurt others: No Plan service: No Sexual orientation: Straight/Heterosexual Physical Exam 2 Vital Signs: Vital Signs: Last Vital Signs Temp 97.8 F 10/09/24 13:33 Pulse 71 10/09/24 13:33 Resp 18 10/09/24 13:33 BP 133/91 H 10/09/24 13:33 Pulse Ox 95 10/09/24 13:33 O2 Del Method Room Air 10/09/24 13:33 BMI result Body Mass Index 30.7 Const: Other: * Gen: ?Overall well-appearing patient * HEENT: PERRLA, EOMI, MMM, * Neck: Supple, no LAD * CV: RRR, no obvious murmurs appreciated, right lower ribcage tenderness * Resp: ?No wheezing rales rhonchi no stridor moving air well * Abd: ?Bowel sounds are present, no tenderness no rebound no rigidity * MSK: FROM, strength 5/5 all extremities * Skin: Warm, dry, intact, * Neuro: ?Alert and oriented x3, moving upper and lower extremities symmetrically, no obvious facial asymmetry noted NIH Stroke Scale Internal: Initial- Upon Arrival Level of Consciousness: Alert Level of Consciousness Questions: Answers both questions correctly Level of Consciousness Commands: Performs both tasks correctly Best Gaze: Normal Visual: No visual loss Facial Palsy: Normal Motor Arm (Right): No drift Motor Arm (Left): No drift Motor Leg (Right): No drift Motor Leg (Left): No drift Limb Ataxia: Absent Sensory: Normal Best Language: No aphasia Dysarthia: Normal Extinction and Inattention: No abnormality Score: 0 Medical Decision Making Medical Decision Making MDM Narrative: Patient is presenting with chest pain but also multiple somatic complaints, vision changes, tingling in his extremities, he reports that this is a new issue and this has been quite disruptive in his life, he does have prior history of DVT and PE sounds like and he has Eliquis and metoprolol and you can prescribed however he states metoprolol decreased his heart rate, and Eliquis he does not take on regular basis, with that said there was no hypoxia tachycardia pleurisy to suspect PE, he has no neurologic deficits, did not feel further imaging such as CT CTA is indicated, I will perform cardiac workup, if workup is reassuring we will anticipate discharge, I also reviewed his prior multiple ER visits and workup that he has had. Differential Diagnosis Differential Diagnoses: The differential diagnosis associated with the presentation includes (ACS, pneumothorax, aortic dissection, PE, stroke, migraine, anxiety) Admission/Observation Consideration of admission/observation: Escalation of care including admission/observation considered 2022 Emergency Medicine Coding Guide from [employer] on 10/09/2024 All calculations should be rechecked by clinician prior to use RESULT SUMMARY: 5 Estimated Level of Service Problems: Moderate (4) Risk: High (5) Data: Extensive (5) NARRATIVE MDM: This patient's problem complexity is Moderate as patient: with chronic illness(es) with exacerbation/progression/side effects of treatment. This patient's risk is High due to: overall presentation requiring evaluation for a potentially High-risk process. This patient's data complexity is Extensive due to: -multiple tests ordered/reviewed -external notes reviewed -independent interpretation of imaging or EKG INPUTS: Number and Complexity ?> 3 = 4: chronic illness with exacerbation (c) Risk level ?> 4 = High Tests ordered ?> 3 = >= Tests results reviewed (excluding labs) ?> 3 = >= Prior external notes reviewed ?> 1 = 1 Assessment requiring and independent historian ?> 0 = No Independent interpretation of tests ?> 1 = Yes Discussed management/test interpretation w/external professional ?> 0 = No Lab Data MDM Lab Attestation statement: I reviewed the patient's lab results. 10/09/24 14:23 10/09/24 14:23 Labs: Lab Results 10/09/24 Range/Units 14:23 WBC 7.1 (4.8-10.8) X10*3/uL RBC 4.73 (4.60-5.80) X10*6/uL Hgb 13.9 L (14.0-18.0) g/dl Hct 41.6 L (42.0-52.0) % MCV 87.9 (80.0-98.0) fL MCH 29.4 (27.0-33.0) pg MCHC 33.4 (31.0-36.0) g/dl RDW 13.0 (11.0-16.0) % Plt Count 283 (160-400) X10*3/uL MPV 9.1 L (9.4-12.4) fL Immature Gran % (Auto) 0.3 (0.0-0.4) % Neut % (Auto) 71.6 (45-73) % Lymph % (Auto) 19.3 L (20-40) % [place] % (Auto) 7.8 (2-11) % Eos % (Auto) 0.6 (0-4) % Baso % (Auto) 0.4 (0-2) % Lymph # (Auto) 1.4 (1.2-4.9) X10*3/uL [place] # (Auto) 0.6 (0.1-1.2) X10*3/uL Eos # (Auto) 0.0 (0.0-0.4) X10*3/uL Baso # (Auto) 0.0 (0.0-0.2) X10*3/uL Abs Immat Gran (auto) 0.02 (0.00-0.03) X10*3/uL Absolute Neuts (auto) 5.1 (2.0-8.3) x10*3/uL Absolute Nucleated RBC 0.000 (0.0-0.012) X10*3/uL Nucleated RBC % (auto) 0.0 (0.0-0.2) /100WBC Sodium 142 (135-145) mmol/L Potassium 4.2 (3.3-5.1) mmol/L Chloride 108 (96-108) mmol/L Carbon Dioxide 28 (22-29) mmol/L Anion Gap 10 L (12-20) BUN 16 (9-16) mg/dL Creatinine 1.18 (0.5-1.4) mg/dL Estim Creat Clear Calc 86.1 Estimated GFR > 60 Random Glucose 103 (60-115) mg/dL Calcium 8.7 (8.4-10.2) mg/dL Total Bilirubin 0.5 (0.0-1.0) mg/dL AST 23 (5-37) U/L ALT 25 (0-40) U/L Alkaline Phosphatase 89 (39-117) U/L Total Protein 6.6 (6.5-8.0) g/dL Albumin 4.0 (3.5-5.0) g/dL Lipase 10 (8-78) U/L Independent Interpretation I performed an independent interpretation of an: EKG (69 BPM, otherwise normal ECG without dysrhythmia, AV gerald blocks or ST-T changes to suspect underlying ACS, my independent interpretation) and Plain X-Ray (My independent chest xray interpretation: Lungs: Lungs are clear bilaterally without evidence of focal consolidation, pleural effusion, or pneumothorax. Cardiac silhouette is unremarkable, no obvious mediastinal widening, no obvious bony abnormalities such as fractures. Impression: Normal chest X-r) Radiology Impression Discussion of test interpretation with radiology: I have reviewed the radiologist's reading. Tests considered The following testing was considered but not selected: CT angio chest Social Determinants Patient?s care significantly limited by Social Determinants of Health including: Unemployment Discharge Plan Discharge Clinical Impression: Chest pain, precordial, Left face and left arm tingling Additional Instructions: Diagnosis and Initial Evaluation: You have been evaluated in the Emergency Department (ED) for chest pain. Based on your clinical assessment, electrocardiogram (ECG), and high-sensitivity cardiac troponin (hs-cTn) levels, you have been classified as low-risk for acute coronary syndrome (ACS) and myocardial infarction ([place]). This means that your likelihood of having a heart attack or other serious heart condition in the next 30 days is very low. Neurologic exam at bedside is unremarkable as well, there was no evidence that you have or had a stroke, Follow-Up Care: ? Primary Care Provider (PCP) or Character Actor: It is important to follow up with your primary care provider or raw silk grader within the next 14 to 30 days. This follow-up is crucial to ensure that any underlying conditions are managed appropriately and to discuss any further testing that may be needed. ? Notification: If you have an established PCP or raw silk grader, they have been notified of your ED visit to facilitate continuity of care. Self-Care and Monitoring: ? Medications: Continue taking any prescribed medications as directed. If you have been given new medications, ensure you understand how and when to take them. ? Activity: Resume normal activities as tolerated. Avoid strenuous activities until you have discussed them with your healthcare provider. ? Diet: Maintain a heart-healthy diet, low in saturated fats, cholesterol, and sodium. Red Flags: Seek immediate medical attention if you experience any of the following: ? New or worsening chest pain ? Shortness of breath ? Dizziness or fainting ? Pain radiating to your arm, neck, or jaw ? Sweating, nausea, or vomiting Additional Testing: In some cases, outpatient testing such as a stress test or imaging may be recommended to further evaluate your heart health. Your follow-up provider will discuss this with you if necessary. Mental Health: Anxiety and stress can contribute to chest pain. Consider discussing any concerns with your healthcare provider, who may recommend screening for anxiety or depression and appropriate management strategies. Contact Information: If you have any questions or concerns before your follow-up appointment, please contact your healthcare provider or the ED where you were evaluated. Summary: You have been discharged from the ED with a low risk of serious heart conditions. Follow the instructions above, attend your follow-up appointments, and seek immediate care if you experience any red flags. Prescriptions: No Action buprenorphine-naloxone [Suboxone] 8-2 mg Film 1 film buccal TID 7 Days Qty: 21 3RF famotidine 40 mg tablet 40 mg PO BEDTIME 30 Days Qty: 30 0RF hydroxyzine HCl 50 mg tablet 50 mg PO TID PRN (Reason: anxiety) 30 Days Qty: 90 0RF omeprazole 40 mg capsule,delayed release(DR/EC) 40 mg PO DAILY 30 Days Qty: 30 0RF lorazepam 1 mg tablet 1 mg PO DAILY PRN (Reason: Anxiety) 7 Days Qty: 7 3RF sertraline 50 mg tablet 50 mg PO DAILY 30 Days Qty: 30 0RF metoprolol tartrate 25 mg tablet 12.5 mg PO BID 30 Days Qty: 30 0RF Protocol: Hold for HR <: HOLD for HR < : 60 Rx Instructions: holds for low hr <65 and low bp nebivolol 5 mg tablet 5 mg PO DAILY 30 Days Qty: 30 0RF Eliquis 5 mg tablet 5 mg PO BID 30 Days Qty: 60 0RF Print Language: Frisian
[2024-10-09 14:27] LABS: MANUAL DIFF FLAG NO
--- OUTSIDE RECORDS SUMMARY | 2024-10-09 14:33 | XMS_ITS | Clinical Summary ---
Author Organization [facility] Address [address] [place] [address] Phone Care Team Providers Care Customer Service Advisor Name Role Phone Yisel Bland NILTON Primary Care Provider Allergies Active Allergy Reactions Criticality Noted Date Comments Haloperidol Unknown 01/17/2024 Anxiety Iohexol 05/15/2024 Medications hydrOXYzine HCL (ATARAX) 50 mg tablet Take 1 tablet (50 mg total) by mouth 3 (three) times a day if needed. 01/11/2024 Active Eliquis 5 mg tablet Take 1 tablet (5 mg total) by mouth 2 (two) times a day. 04/07/2024 Active LORazepam (ATIVAN) 1 mg tablet 1 Tablet po daily prn severe anxiety/panic 04/03/2024 Active metoprolol succinate (TOPROL-XL) 50 mg 24 hr tablet Take 1 tablet (50 mg total) by mouth 1 (one) time each day. Active omeprazole (PriLOSEC) [address] capsule Take 1 capsule (40 mg total) by mouth 1 (one) time each day. 04/07/2024 Active traZODone (DESYREL) 50 mg tablet take 1-2 tablets nightly PO PRN insomnia Active famotidine (PEPCID) 40 mg tablet Take 1 tablet (40 mg total) by mouth 1 (one) time each day. 03/26/2024 Active furosemide (LASIX) 20 mg tablet Take 1 tablet (20 mg total) by mouth if needed (ONCE DAILY for edema/swellin g) for up to 5 doses. 5 tablet 06/02/2024 Active Active Problems No known active problems Encounters Date Type Department Care Team Description 08/30/2024 - 08/31/2024 4:49 AM EDT Emergency [facility] Emergency [address] [place] [address] Discharge Disposition: ED Dismiss - Never Arrived 08/29/2024 5:16 PM EDT - 08/30/2024 3:41 AM EDT Emergency [facility] Emergency [address] [place] [id number] Ryan Griggs MD Mesenteric panniculitis ([facility] [place], [facility] [place] V28) (Primary Dx) Discharge Disposition: Home or Self Care from Last 3 Months Medical History Medical History Date Comments Kidney calculi Lupus (systemic lupus erythematosus) ([facility] [place] V2 4, [facility] [place] V28) Kidney disease associated with lupus ([facility] [place] V2 4, [facility] [place] V28) Pulmonary embolism ([facility] [place] V24, [facility] [place] V28[facility] A-fib ([facility] [place] V24, [facility] [place] V28) Substance abuse ([facility] [place] V24, [facility] [place] V28) GERD (gastroesophageal reflux disease) Social History Tobacco Use Types Packs/Day Years Used Date Smoking Tobacco: Former Cigarettes Smokeless Tobacco: Never Tobacco Cessation:Counseling Given: Not Answered Alcohol Use Standard Drinks/Week Comments Not Currently 0 (1 standard drink = 0.6 oz pur e alcohol) Sex and Gender Information Value Date Recorded Sex Assigned at Male 01/18/2024 2:35 PM EST Legal Sex Male 3:38 AM EST Gender Identity Male 01/18/2024 2:35 PM EST Sexual Orientation Straight 01/18/2024 2: 35 PM EST Obstetrics History Last Filed Vital Signs Vital Sign Reading Time Taken Comments Blood Pressure 134/83 08/29/2024 7:03 PM EDT Pulse 61 08/29/2024 7:03 PM EDT Temperature 36.7 C (98.1 F) 08/29/2024 7:03 PM EDT Respiratory Rate 13 08/29/2024 7:03 PM EDT Oxygen Saturation 98% 08/29/2024 7:03 PM EDT Inhaled Oxygen Concentration - - Weight 95.3 kg (210 lb) 08/29/2024 3:26 PM EDT Height 180.3 cm (5' 11 ) 08/29/2024 3:26 PM EDT Body Mass Index 29.29 08/29/2024 3:26 PM EDT Plan of Treatment Health Maintenance Due Date Last Done Comments Hepatitis A Vaccines (1 of 2 - Risk 2-dose series) 1989 Hepatitis B Vaccines (1 of 3 - 19+ 3-dose series) 1989 Pneumococcal Vaccine: 50+ Years (1 of 1 - PCV) 2020 Zoster Vaccines (1 of 2) 2020 Cholesterol Screening (Lipid Panel) 02/13/2022 HIV Screening 02/13/2022 Social Influencers of Health Screening 02/13/2022 COVID-19 Vaccine (3 - 2023-2 5 season) 2023 03/26/2021, 03/03/2021, 02/14/2021 Depression Screening 03/13/2024 Influenza Vaccine (#1) 2024 DTaP,Tdap,and Td Vaccines (3 - Td or Tdap) 05/22/2033 05/23/2023, 03/13/2011 Colorectal Cancer Screening: Colonoscopy 06/12/2034 06/12/2024, 11/09/2022 Hepatitis C Screening Completed 08/29/2024 HIB Vaccines Aged Out No longer eligi ble based on patient's age to complete this topic HPV Vaccines Aged Out No longer eligi ble based on patient's age to complete this topic IPV Vaccines Aged Out No longer eligi ble based on patient's age to complete this topic MMR Vaccines Aged Out No longer eligi ble based on patient's age to complete this topic Meningococcal ACWY Vaccine Aged Out N o longer eligible based on patient's age to complete this topic Meningococcal B Vaccine Aged Out No l onger eligible based on patient's age to complete this topic RSV Immunization Patients Under 20 months Aged Out No longer eligible b ased on patient's age to complete this topic Varicella Vaccines Aged Out No longer eligible based on patient's age to complete this topic Procedures Procedure Name Priority Date/Time Associated Diagnosis Comments ECG ANNOTATED 09/02/2024 MCLEAN URINE CULTURE TUBE Routine 08/31/19 25 1:02 AM EDT EXTRA TUBES Routine 08/30/2024 1:02 AM EDT URINALYSIS WITH REFLEX MICROSCOPIC STAT 08/30/2024 1:02 AM EDT URINALYSIS WITH REFLEX MICROSCOPIC STAT 08/30/2024 1:02 AM EDT INTERFERON GAMMA INTERPRETATION STAT 08/29/2024 10:18 PM EDT INTERFERON GAMMA ANTIGEN 2 STAT 08/29/2024 10:18 PM EDT INTERFERON GAMMA ANTIGEN 1 STAT 08/29/2024 10:18 PM EDT INTERFERON GAMMA MITOGEN STAT 08/29/2024 10:18 PM EDT INTERFERON GAMMA NIL STAT 08/29/2024 10:18 PM EDT INTERFERON GAMMA FOR TB, QUALITATIVE STAT 08/29/2024 10:[address] ABDOMEN PELVIS W CONTRAST STAT 08/29/2024 9:52 PM EDT HEPATITIS PANEL, ACUTE WITH REFLEX TO CONFIRMATION STAT 08/29/2024 8:37 PM EDT XR CHEST 2 VIEWS STAT 08/29/2024 6:16 PM EDT TROPONIN I HIGH SENSITIVITY STAT 08/29/2024 4:38 PM EDT CBC WITH AUTO DIFFERENTIAL STAT 08/29/2024 3:23 PM EDT B-TYPE NATRIURETIC PEPTIDE STAT 08/29/2024 3:23 PM EDT MAGNESIUM STAT 08/29/2024 3:23 PM EDT LIPASE STAT 08/29/2024 3:23 PM EDT COMPREHENSIVE METABOLIC PANEL STAT 08/29/2024 3:23 PM EDT CBC AND DIFFERENTIAL STAT 08/29/2024 3:23 PM EDT TROPONIN I HIGH SENSITIVITY STAT 08/29/2024 3:23 PM EDT ECG 12-LEAD STAT 08/29/2024 3:17 PM EDT from Last 3 Months Results * ECG-Annotated (09/02/2024) us Provider Onbase MD ECG ORDERABLES Final Result * (ABNORMAL) Urinalysis with reflex microscopic (08/30/2024 1:02 AM EDT) Pathologist [facility] Emergency Department Specific [place] Urine 1.041(H) 1.003 - 1.030 LAB URINALYSIS - AUTOMATED METHOD 08/30/2024 1:30 AM [facility] pH, Urine 6.5 5.0 - 8.0 pH LAB URINALYSIS - AUTOMATED METHOD 08/30/2024 1:30 AM [facility] Leukocytes, Urine Negative Negative LAB URINALYSIS - AUTOMATED METHOD 08/30/2024 1:30 AM [facility] Nitrite, Urine Negative Negative LAB URINALYSIS - AUTOMATED METHOD 08/30/2024 1:30 AM [facility] Protein, Urine Negative <=Trace mg/dL LAB URINALYSIS - AUTOMATED METHOD 08/30/2024 1:30 AM [facility] Glucose, Urine Negative Negative mg/dL LAB URINALYSIS - AUTOMATED METHOD 08/30/2024 1:30 AM [facility] Ketones, Urine Trace(A) Negative mg/dL LAB URINALYSIS - AUTOMATED METHOD 08/30/2024 1:30 AM [facility] Urobilinogen, Urine 0.2 0.2 - 1.0 mg/dL LAB URINALYSIS - AUTOMATED METHOD 08/30/2024 1:30 AM [facility] Bilirubin, Urine Negative Negative LAB URINALYSIS - AUTOMATED METHOD 08/30/2024 1:30 AM [facility] Blood, Urine Negative Negative LAB URINALYSIS - AUTOMATED METHOD 08/30/2024 1:30 AM EDT [facility] Urine Urine specimen obtained by clean catch procedure / Unknown Non-blood Collection / Unknown 08/30/2024 1:02 AM EDT 08/30/2024 1:23 AM EDT Ryan Griggs MD LAB URINE ORDERABLES Final Res ult Performing Organization Address [facility]/ZIP Co de Phone Number [facility] [address] [place] [address], [place] [phone] * Mclean urine culture tube (08/30/2024 1:02 AM EDT) Pathologist [facility] Emergency Department Extra Tube Hold for add-ons. 09/02/2024 4:01 AM EDT [facility] Comment:Auto resulted. Urine Urine specimen obtained by clean catch procedure / Unknown 08/30/2024 1:02 AM EDT 08/30/2024 1:23 AM EDT Michael MONTGOMERY LAB URINE ORDERABLES Final Resul t Performing Organization Address [facility] de Phone Number [facility] [address] [place] [address], [place] [phone] * Interferon gamma interpretation (08/29/2024 10:18 PM EDT) Quantiferon Plus Interpretation Negative Negative LAB CHEMISTRY METHOD 08/31/2024 9:47 AM EDT [facility] Blood Venous blood specimen / Unknown Venipuncture / Unknown 08/29/2024 10:18 PM EDT 08/29/2024 10:52 PM EDT us Ryan Griggs MD LAB BLOOD ORDERABLES Final Res ult Performing Organization Address City/[facility]/ZIP Co de Phone Number [facility] [address] [place] [address], [place] [phone] * Interferon gamma antigen 2 (08/29/2024 10:18 PM EDT) Blood Venous blood specimen / Unknown Venipuncture / Unknown 08/29/2024 10:18 PM EDT 08/29/2024 10:52 PM EDT us Ryan Griggs MD LAB BLOOD ORDERABLES Final Res ult Performing Organization Address City/[facility]/ZIP Co de Phone Number [facility] [address] [place] [address], [place] [phone] * Interferon gamma antigen 1 (08/29/2024 10:18 PM EDT) Blood Venous blood specimen / Unknown Venipuncture / Unknown 08/29/2024 10:18 PM EDT 08/29/2024 10:52 PM EDT us Ryan Griggs MD LAB BLOOD ORDERABLES Final Res ult Performing Organization Address [facility] Co de Phone Number [facility] [address] [place] [address], [place] [phone] * Interferon gamma mitogen (08/29/2024 10:18 PM EDT) Blood Venous blood specimen / Unknown Venipuncture / Unknown 08/29/2024 10:18 PM EDT 08/29/2024 10:52 PM EDT us Ryan Griggs MD LAB BLOOD ORDERABLES Final Res ult Performing Organization Address City/[facility]/ZIP Co de Phone Number [facility] [address] [place] [address], [place] [phone] * Interferon gamma NIL (08/29/2024 10:18 PM EDT) Blood Venous blood specimen / Unknown Venipuncture / Unknown 08/29/2024 10:18 PM EDT 08/29/2024 10:52 PM EDT us Ryan Griggs MD LAB BLOOD ORDERABLES Final Res ult [facility] [address] [place] [address], [place] [phone] * CT Abdomen Pelvis w Contrast (08/29/2024 9:52 PM EDT) Anatomical Region Laterality Modality Body Computed Tomogra phy 08/29/2024 10:2 2 PM EDT Impressions 08/29/2024 10:22 PM EDT Possible mesenteric panniculitis. This document has been electronically signed by: Enio Turner MD on 08/29/2024 22:22:18 Narrative 08/29/2024 10:22 PM EDT INDICATION: Abdominal distension CT abdomen and pelvis with contrast Comparison: CT - CT ANGIO CHEST WO AND OR W CONTRAST - 04/13/24 23:03 EST Findings: Atelectasis. Trace pericardial effusion. Hepatomegaly with steatosis. Mildly distended gallbladder. No gallstones. Atrophic pancreas. 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 No significant hydronephrosis. No urolithiasis. Tiny splenule. No bowel obstruction, pneumoperitoneum, or pneumatosis. Subtle central mesenteric fat stranding with prominent lymph nodes, suggestive of mesenteric panniculitis. Fat containing inguinal hernias. Scattered colonic diverticulosis without diverticulitis or colitis. Normal appendix. Osteopenia. Procedure Note Enio Turner MD - 08/29/2024 INDICATION: Abdominal distension CT abdomen and pelvis with contrast Comparison: CT - CT ANGIO CHEST WO AND OR W CONTRAST - 04/13/24 23:03 EST Findings: Atelectasis. Trace pericardial effusion. Hepatomegaly with steatosis. Mildly distended gallbladder. No gallstones. Atrophic pancreas. 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 No significant hydronephrosis. No urolithiasis. Tiny splenule. No bowel obstruction, pneumoperitoneum, or pneumatosis. Subtle central mesenteric fat stranding with prominent lymph nodes, suggestive of mesenteric panniculitis. Fat containing inguinal hernias. Scattered colonic diverticulosis without diverticulitis or colitis. Normal appendix. Osteopenia. IMPRESSION: Possible mesenteric panniculitis. This document has been electronically signed by: Enio Turner MD on 08/29/2024 22:22:18 Ryan Griggs MD IMG CT PROCEDURES Final Result * Hepatitis panel, acute with reflex to confirmation (08/29/2024 8:37 PM EDT) Hepatitis B Surface Ag Negative Negative LAB CHEMISTRY METHOD 08/29/2024 10:31 PM EDT [facility] Hepatitis A Antibody IgM Negative Negative LAB CHEMISTRY METHOD 08/29/2024 10:31 PM EDT [facility] Hep B Core IgM Negative Negative LAB CHEMISTRY METHOD 08/29/2024 10:31 PM EDT [facility] Hepatitis C Antibody Negative Negative LAB CHEMISTRY METHOD 08/29/2024 10:31 PM EDT [facility] Blood Venous blood specimen / Unknown Venipuncture / Unknown 08/29/2024 8:37 PM EDT 08/29/2024 8:53 PM EDT Ryan Griggs MD LAB BLOOD ORDERABLES Final Res ult [facility] [address] [place] [address], * XR Chest 2 Views (08/29/2024 6:16 PM EDT) Anatomical Region Laterality Modality Body Radiographic Kaye ging 08/30/2024 11:1 8 AM EDT Impressions 08/30/2024 11:20 AM EDT No evidence of active pulmonary disease. No significant change from the prior study. [id number] -------- FINAL REPORT -------- Dictated By: Sandeep Mccord Dictated Date: 08/30/2024 11:18 ET Assigned Physician: Sandeep Mccord Reviewed and Electronically Signed By: Sandeep Mccord Signed Date: 08/30/2024 11:20 ET Workstation ID: [id number] Transcribed By: Self Edit Transcribed Date: 08/30/2024 11:18 ET Narrative 08/30/2024 11:20 AM EDT INDICATION: Chest pain FINDINGS: Two views of the chest were obtained. Compared to multiple prior studies most recent from June 02, 2024. Lung frederick are clear. Cardiomediastinal silhouette is normal in size and shape. Bony structures are within normal limits for the patient's age. Procedure Note Sandeep Mccord MD - 08/30/2024 INDICATION: Chest pain FINDINGS: Two views of the chest were obtained. Compared to multiple priorstudies most recent from June 02, 2024. Lung frederick are clear. Cardiomediastinal silhouette is normal in size and shape. Bony structures are within normal limits for the patient's age. IMPRESSION: No evidence of active pulmonary disease. No significant change from theprior study. [id number] -------- FINAL REPORT -------- Dictated By: Sandeep Mccord Dictated Date: 08/30/2024 11:18 ET Assigned Physician: Sandeep Mccord Reviewed and Electronically Signed By: Sandeep Mccord Signed Date: 08/30/2024 11:20 ET Workstation ID: [id number] Transcribed By: Self Edit Transcribed Date: 08/30/2024 11:18 ET us Ryan Griggs MD IMG XR PROCEDURES Final Result * Troponin I high sensitivity (08/29/2024 4:38 PM EDT) Only the most recent of2 resultswithin the time period is included. High Sensitivity Troponin I 10 <=79 ng/L LAB CHEMISTRY METHOD 08/29/2024 5:33 PM EDT [facility] Blood Venous blood specimen / Unknown Venipuncture / Unknown 08/29/2024 4:38 PM EDT 08/29/2024 4:45 PM EDT Narrative [facility] - 08/29/2024 5:33 PM EDT High levels of biotin in samples may falsely decrease hsTroponin values. Use caution when interpreting hsTroponin results in patients taking biotin who exhibit renal impairment (eGFR <60) or in patients taking more than 20 mg/day of biotin. us Ryan Griggs MD LAB BLOOD ORDERABLES Final Res ult [facility] [address] [place] [address], [place] [phone] * (ABNORMAL) CBC auto differential (08/29/2024 3:23 PM EDT) WBC 6.7 4.8 - 10.8 K/mcL LAB HEMETOLOGY METHOD 08/29/2024 3:55 PM EDT [facility] RBC 4.60 4.50 - 5.50 M/mcL LAB HEMETOLOGY METHOD 08/29/2024 3:55 PM EDT [facility] Hemoglobin 13.5 13.5 - 17.5 g/dL LAB HEMETOLOGY METHOD 08/29/2024 3:55 PM EDT [facility] Hematocrit 40.4(L) 42.0 - 54.0 % LAB HEMETOLOGY METHOD 08/29/2024 3:55 PM EDT [facility] MCV 87.4 79.0 - 98.0 FL LAB HEMETOLOGY METHOD 08/29/2024 3:55 PM EDT [facility] MCH 29.2 27.0 - 32.0 pcg LAB HEMETOLOGY METHOD 08/29/2024 3:55 PM EDT [facility] MCHC 33.4 32.0 - 37.0 g/dL LAB HEMETOLOGY METHOD 08/29/2024 3:55 PM EDT [facility] RDW 13.1 11.0 - 15.0 % LAB HEMETOLOGY METHOD 08/29/2024 3:55 PM EDT [facility] Platelets 328 130 - 400 K/mcL LAB HEMETOLOGY METHOD 08/29/2024 3:55 PM EDT [facility] MPV 9.7 7.0 - 11.0 FL LAB HEMETOLOGY METHOD 08/29/2024 3:55 PM EDT [facility] NRBC 0.0 <1.0 % LAB HEMETOLOGY METHOD 08/29/2024 3:55 PM EDT [facility] NRBC Absolute 0.00 <0.10 K/mcL LAB HEMETOLOGY METHOD 08/29/2024 3:55 PM EDT [facility] Neutrophils Relative 61.4 % LAB HEMETOLOGY METHOD 08/29/2024 3:55 PM EDT [facility] Lymphocytes Relative 25.1 % LAB HEMETOLOGY METHOD 08/29/2024 3:55 PM EDT [facility] Monocytes Relative 11.5 % LAB HEMETOLOGY METHOD 08/29/2024 3:55 PM EDT [facility] Eosinophils Relative 1.3 % LAB HEMETOLOGY METHOD 08/29/2024 3:55 PM EDT [facility] Basophils Relative 0.4 % LAB HEMETOLOGY METHOD 08/29/2024 3:55 PM EDT [facility] Immature Granulocytes Relative 0.3 % LAB HEMETOLOGY METHOD 08/29/2024 3:55 PM EDT [facility] Neutrophils Absolute 4.09 1.50 - 7.00 K/mcL LAB HEMETOLOGY METHOD 08/29/2024 3:55 PM EDT [facility] Lymphocytes Absolute 1.68 1.00 - 5.00 K/mcL LAB HEMETOLOGY METHOD 08/29/2024 3:55 PM EDT [facility] Monocytes Absolute 0.77 0.20 - 1.00 K/mcL LAB HEMETOLOGY METHOD 08/29/2024 3:55 PM EDT [facility] Eosinophils Absolute 0.09 0.00 - 0.50 K/mcL LAB HEMETOLOGY METHOD 08/29/2024 3:55 PM EDT [facility] Basophils Absolute 0.03 0.00 - 0.20 K/[facility] LAB HEMETOLOGY METHOD 08/29/2024 3:55 PM EDT [facility] Immature Granulocytes Absolute 0.02 0.00 - 0.03 K/[facility] LAB HEMETOLOGY METHOD 08/29/2024 3:55 PM EDT [facility] Blood Venous blood specimen / Unknown Venipuncture / Unknown 08/29/2024 3:23 PM EDT 08/29/2024 3:44 PM EDT us Ryan Griggs MD LAB BLOOD ORDERABLES Final Res ult Performing Organization Address [facility]/ZIP Co de Phone Number [facility] [address] [place] [address], [place] [phone] * B-type natriuretic peptide (08/29/2024 3:23 PM EDT) BNP 59 <=100 pcg/mL LAB CHEMISTRY METHOD 08/29/2024 4:20 PM EDT [facility] Blood Venous blood specimen / Unknown Venipuncture / Unknown 08/29/2024 3:23 PM EDT 08/29/2024 3:44 PM EDT us Ryan Griggs MD LAB BLOOD ORDERABLES Final Res ult [facility] [address] [place] [address], [place] [phone] * Magnesium (08/29/2024 3:23 PM EDT) Magnesium 2.2 1.9 - 2.6 mg/dL LAB CHEMISTRY METHOD 08/29/2024 4:15 PM EDT [facility] Blood Venous blood specimen / Unknown Venipuncture / Unknown 08/29/2024 3:23 PM EDT 08/29/2024 3:44 PM EDT us Ryan Griggs MD LAB BLOOD ORDERABLES Final Res ult [facility] [address] [place] [address], [place] [phone] * Lipase (08/29/2024 3:23 PM EDT) [facility] Lipase 38 13 - 75 unit/L LAB CHEMISTRY METHOD 08/29/2024 4:18 PM EDT [facility] Blood Venous blood specimen / Unknown Venipuncture / Unknown 08/29/2024 3:23 PM EDT 08/29/2024 3:44 PM EDT Ryan Griggs MD LAB BLOOD ORDERABLES Final Res ult Performing Organization Address City/[facility]/ZIP Co de Phone Number [facility] [address] [place] [address], [place] [phone] * (ABNORMAL) Comprehensive metabolic panel (08/29/2024 3:23 PM EDT) [facility] Sodium 134 133 - 145 mmol/L LAB CHEMISTRY METHOD 08/29/2024 4:18 PM EDT [facility] Potassium 4.3 3.5 - 5.5 mmol/L LAB CHEMISTRY METHOD 08/29/2024 4:18 PM EDT [facility] Chloride 101 96 - 110 mmol/L LAB CHEMISTRY METHOD 08/29/2024 4:18 PM EDT [facility] CO2 27 21 - 32 mmol/L LAB CHEMISTRY METHOD 08/29/2024 4:18 PM EDT [facility] Anion Gap 6 3 - 11 LAB CHEMISTRY METHOD 08/29/2024 4:18 PM EDT [facility] Glucose 101(H) 70 - 100 mg/dL LAB CHEMISTRY METHOD 08/29/2024 4:18 PM [facility] BUN 18 5 - 25 mg/dL LAB CHEMISTRY METHOD 08/29/2024 4:18 PM [facility] Creatinine 1.05 0.70 - 1.30 mg/dL LAB CHEMISTRY METHOD 08/29/2024 4:18 PM [facility] eGFR 84 >=60 mL/min/1. 73m2 LAB CHEMISTRY METHOD 08/29/2024 4:18 PM [facility] Comment:Calculation based on the Chronic Kidney Disease Epidemiology Collaboration (CKD-EPI) equation refit without adjustment for race. BUN/Creatinine Ratio 17.1 LAB CHEMISTRY METHOD 08/29/2024 4:18 PM [facility] Calcium 8.9 8.5 - 10.5 mg/dL LAB CHEMISTRY METHOD 08/29/2024 4:18 PM [facility] AST (SGOT) 95(H) 10 - 42 unit/L LAB CHEMISTRY METHOD 08/29/2024 4:18 PM [facility] ALT (SGPT) 51 10 - 60 unit/L LAB CHEMISTRY METHOD 08/29/2024 4:18 PM [facility] Alkaline Phosphatase 112 42 - 121 unit/L LAB CHEMISTRY METHOD 08/29/2024 4:18 PM [facility] Total Protein 6.8 6.0 - 8.0 g/dL LAB CHEMISTRY METHOD 08/29/2024 4:18 PM [facility] Albumin 3.8 3.2 - 5.0 g/dL LAB CHEMISTRY METHOD 08/29/2024 4:18 PM [facility] Total Bilirubin 0.4 0.0 - 1.4 mg/dL LAB CHEMISTRY METHOD 08/29/2024 4:18 PM [facility] Blood Venous blood specimen / Unknown Venipuncture / Unknown 08/29/2024 3:23 PM EDT 08/29/2024 3:44 PM EDT us Ryan Griggs MD LAB BLOOD ORDERABLES Final Res ult Performing Organization Address City/[facility]/ZIP Co de Phone Number [facility] [address] [place] [address], * ECG 12 lead (08/29/2024 3:17 PM EDT) Ventricular Rate ECG 67 BPM GEMUSE Atrial Rate 67 BPM GEMUSE P-R Interval 152 ms GEMUSE QRS Duration 100 ms GEMUSE Q-T Interval 430 ms GEMUSE QTc 454 ms GEMUSE P Wave [place] 53 degrees GEMUSE R [place] 26 degrees GEMUSE T [place] 62 degrees GEMUSE ECG Interpretation Normal sinus rhythm Normal ECG When compared with ECG of 15-MAY-2024 09:54, Nonspecific T wave abnormality no longer evident in Inferior leads Confirmed by DEBBIE EVANGELISTA ([id number]) on 08/29/2024 6:18:33 PM GEMUSE 08/29/2024 3:17 PM EDT 08/29/2024 6:18 PM EDT Ryan Griggs MD ECG ORDERABLES Final Result Performing Organization Address [facility] Co de Phone Number GEMUSE from Last 3 Months Insurance [facility] [employer] Care Teams Customer Service Advisor Relationship Specialty Start Date End Date Yisel Bland FNP [address] [place] [phone] PCP - General Family Medicine 05/15/24
[2024-10-09 14:42] LABS: Hematocrit 41.6 % (42.0-52.0); Hemoglobin 13.9 g/dl (14.0-18.0); Imm Gran Abs Auto 0.02 X10*3/uL (0.00-0.03); Imm Gran Pct Auto 0.3 % (0.0-0.4); Lymphocytes Absolute Auto 1.4 X10*3/uL (1.2-4.9); Mean Corpuscular HGB Conc 33.4 g/dl (31.0-36.0); Mean Corpuscular Hemoglobin 29.4 pg (27.0-33.0); Mean Corpuscular Volume 87.9 fL (80.0-98.0); NRBC Abs Auto 0.000 X10*3/uL (0.0-0.012); NRBC Pct Auto 0.0 /100WBC (0.0-0.2); Platelet Count 283 X10*3/uL (160-400); Red Blood Count 4.73 X10*6/uL (4.60-5.80); White Blood Count 7.1 X10*3/uL (4.8-10.8)
[2024-10-09 14:43] LABS: Alanine Aminotransferase 25 U/L (0-40); Albumin Level 4.0 g/dL (3.5-5.0); Alkaline Phosphatase 89 U/L (39-117); Anion Gap 10 (12-20); Aspartate Amino Transferase 23 U/L (5-37); Blood Urea Nitrogen 16 mg/dL (9-16); Calcium 8.7 mg/dL (8.4-10.2); Carbon Dioxide 28 mmol/L (22-29); Chloride 108 mmol/L (96-108); Creatinine Clr Calc Pharmacy 86.1; Estimated Glomerular Filt Rate > 60; Lipase 10 U/L (8-78); Potassium 4.2 mmol/L (3.3-5.1); Sodium 142 mmol/L (135-145); Total Protein 6.6 g/dL (6.5-8.0)
--- NOTE | 2024-10-09 15:24 | PC.NURSE ---
Spoke w/ Mamie Rojas RN, updated on disposition. Also updated on dispositon w/ Dr. Hammond
[2024-10-09 15:26] VITALS: BP 133/91; PULSE 71; RESP 18; TEMP 36.6; O2SAT 95
== END 2024-10-09 15:39 | disposition home or self-care (01) ==
PROVIDERS: Emergency Provider Emergency Medicine
DX: R07.9 Chest pain, unspecified (principal); R20.2 Paresthesia of skin; H53.9 Unspecified visual disturbance; I48.91 Unspecified atrial fibrillation; I26.99 Other pulmonary embolism without acute cor pulmonale; Z79.01 Long term (current) use of anticoagulants
CPT/HCPCS: 36415; 71046; 80053; 83690; 85025; 93005; 99283

== ENCOUNTER → 2024-10-09 13:54 | Outpatient (BNV) | payer OTHER, SELFPAY | PROVIDERS: Emergency Provider Emergency Medicine; Visit Provider Radiology Diagnostic Radiology | DX: R07.9 Chest pain, unspecified (principal) | CPT/HCPCS: 71046 ==

== ENCOUNTER → 2024-10-09 13:54 | Outpatient (BNV) | payer OTHER, SELFPAY | PROVIDERS: Emergency Provider Emergency Medicine; Visit Provider Internal Medicine Cardiovascular Disease | DX: R07.89 Other chest pain (principal) | CPT/HCPCS: 93010 ==